=== PATIENT | female | born 1945 | race Caucasian/White ===

== ENCOUNTER 2020-01-19 14:23 | Outpatient (REF) | payer MEDICARE, SELFPAY ==
[2020-01-19 15:10] LABS: MANUAL DIFF FLAG NO
[2020-01-19 15:16] LABS: Basophils Absolute Auto 0.1 X10*3/uL (0.0-0.2); Basophils Percent Auto 0.8 % (0-2); Eosinophils Absolute Auto 0.2 X10*3/uL (0.0-0.4); Eosinophils Percent Auto 2.1 % (0-4); Hematocrit 42.8 % (37-47); Hemoglobin 13.4 g/dl (12.0-16.0); Imm Gran Abs Auto 0.03 X10*3/uL (0.00-0.03); Imm Gran Pct Auto 0.4 % (0.0-0.4); Lymphocytes Absolute Auto 1.3 X10*3/uL (1.2-4.9); Mean Corpuscular HGB Conc 31.3 g/dl (31.0-35.0); Mean Corpuscular Hemoglobin 29.6 pg (27.0-33.0); Mean Corpuscular Volume 94.7 fL (80-98); Mean Platelet Volume 11.3 fL (9.4-12.3); Monocytes Absolute Auto 0.6 X10*3/uL (0.1-1.2); Monocytes Percent Auto 8.4 % (2-11); Neutrophils Absolute Auto 5.1 X10*3/uL (2.0-8.3); Neutrophils Percent Auto 70.3 % (45-73); Platelet Count 236 X10*3/uL (160-400); Red Blood Count 4.52 X10*6/uL (4.20-5.50); Red Cell Distribution Width 13.3 % (11.0-16.0); White Blood Count 7.2 X10*3/uL (4.8-10.8)
[2020-01-19 15:56] LABS: Anion Gap 16 (12-20); Blood Urea Nitrogen 31 mg/dL (9-16); Calcium 9.2 mg/dL (8.4-10.2); Carbon Dioxide 27 mmol/L (22-29); Chloride 101 mmol/L (96-108); Estimated Glomerular Filt Rate 33; Potassium 4.5 mmol/l (3.3-5.1); Sodium 139 mmol/L (135-145)
== END 2020-01-19 14:24 | disposition home or self-care (01) ==
LOC: HO.LAB 14:23
PROVIDERS: PCP Internal Medicine; Visit Provider Internal Medicine Hypertension Specialist
DX: I12.9 Hypertensive chronic kidney disease with stage 1 through stage 4 chronic kidney disease, or unspecified chronic kidney disease (principal); E11.22 Type 2 diabetes mellitus with diabetic chronic kidney disease; E11.21 Type 2 diabetes mellitus with diabetic nephropathy; N18.30 Chronic kidney disease, stage 3 unspecified
CPT/HCPCS: 36415; 80051; 82310; 82565; 84520; 85025

== ENCOUNTER 2020-03-19 00:58 | Inpatient (IN) | payer MEDICARE, SELFPAY ==
[2020-03-19] VITALS (13 sets, daily range): BP systolic 103–148; BP diastolic 42–68; PULSE 58–90; RESP 18–34; TEMP 36.2–37.1; O2SAT 87–98; BMI 31.1
--- NOTE | 2020-03-19 01:20 | XR_ITS ---
EXAMINATION: XR CHEST CLINICAL INFORMATION: Shortness of breath COMPARISON: 01/14/2017 CT TECHNIQUE: Frontal view of the chest was obtained. FINDINGS: Lung volumes are symmetric. No focal consolidation is seen. There is mild diffuse interstitial prominence suspicious for interstitial edema. No evidence of pneumothorax or significant pleural effusion. Cardiac silhouette appears at the upper limits of normal in size. No acute osseous findings are seen. XR/XR chest 1V IMPRESSION: Mild diffuse interstitial prominence suspicious for interstitial edema.
--- NOTE | 2020-03-19 01:20 | ECG_ITS ---
Test Reason : DYSPNEA Blood Pressure : / mmHG Vent. Rate : 066 BPM Atrial Rate : 066 BPM P-R Int : 190 ms QRS Dur : 078 ms QT Int : 412 ms P-R-T Axes : 020 063 077 degrees QTc Int : 431 ms Sinus rhythm with Premature atrial complexes Nonspecific ST and T wave abnormality Abnormal EKG When compared with ECG of 08-MAY-2017 17:59, Premature atrial complexes are now Present Nonspecific T wave abnormality now evident in Lateral leads Referred By: Shreya Almazan Electronically Signed By:VÍCTOR PHAM
--- NOTE | 2020-03-19 01:23 | ED.SOB ---
HPI - SOB/Dyspnea General Chief Complaint: Dyspnea Stated Complaint: sob Time Seen by Provider: 03/19/20 01:03 History of Present Illness HPI Narrative: Patient is a 75-year-old female with a history of diastolic heart failure. Presents today with sudden onset of shortness of breath. No fever no chills. Minimal coughing. No leg swelling. Shortness of breath worse with lying down. There is no vomiting. No history of Coronavirus. No travel. No history of blood clots in the past. Positive history of hypertension, hyperlipidemia. Patient from home. Related Data Allergies Allergy/AdvReac Type Severity Reaction Status Date / Time From PERCOCET AdvReac Unknown NAUSEA Uncoded 03/19/20 01:11 Review of Systems Review of Systems: Constitutional: No Weight loss, No Fever, No Chills, No Night Sweats, No Fatigue, No Malaise ENT/Mouth: No Hearing loss, No Ear Pain, No Nasal Congestion, No Sinus Pain, No Hoarseness, No sore throat, No Rhinorrhea, No Swallowing Difficulty Eyes: No Eye Pain, No Swelling, No Redness, No Foreign Body, No Discharge, No Vision Changes Cardiovascular: No Chest Pain, Positive SOB, positive Dyspnea on Exertion, positive Orthopnea, No Edema, No Palpitations Respiratory: No Cough, No Sputum, No Wheezing, No Smoke Exposure, No Dyspnea Gastrointestinal: No Nausea, No Vomiting, No Diarrhea, No Constipation, No abdominal Pain, No Hematochezia, No Melena Genitourinary: no irregular bleeding, No Dysuria, No Urinary Frequency, No Hematuria, No Urinary Incontinence, No Urgency, No Flank Pain, No Urinary Flow Changes, No Hesitancy Musculoskeletal: No joint pain, No Myalgias, No Joint Swelling Skin: No Skin Lesions, No rash Neuro: No Weakness, No Numbness, No Paresthesias, No Loss of Consciousness, No Dizziness, No Headache Psych: No Anxiety/Panic, No Depression, No SI/HI/AH/VH, No Social Issues, Heme/Lymph: No Bruising, No Bleeding,No Lymphadenopathy Endocrine: No Polyuria, No Polydipsia, No Temperature Intolerance PMF Past Medical History Attestation statement: The following information was validated with the patient. Medical History Diabetes Hypertension Hypothyroid Parkinson disease Surgical History Hx of carpal tunnel repair Hx of hysterectomy Hx of knee surgery Social History Social History Advance Directives: No Advance Directives Information Provided: No Physical Exam Vital Signs: Vital Signs: Last Vital Signs Temp 98.2 F 03/19/20 01:03 Pulse 89 03/19/20 01:03 Resp 34 H 03/19/20 01:03 BP 148/63 H 03/19/20 01:03 Pulse Ox 87 L 03/19/20 01:03 Body Mass Index 31.1 Appearance: Alert. Oriented X3. No acute distress. Eyes: Pupils equal, round and reactive to light. ENT: Pharynx normal. Neck: Normal inspection. Neck supple. No lymph nodes noted. No crepitus CVS: Normal heart rate and rhythm. Pulses normal. Normal S1 and S2 Respiratory: No respiratory distress. Breath sounds normal. No Wheezing. No rales Abdomen: Soft and nontender. No rigidity. No distention. good BS x4 Skin: Skin warm and dry. Normal skin color. Normal skin turgor. Extremities: No lower extremity edema. Neurovascular intact to all extremities. No Lacerations. No Rash Neuro: Oriented X 3. No motor deficit. No sensory deficit. Moving all extermities. No slurred speech MDM - SOB/Dyspnea MDM Narrative Medical decision making narrative: Patient has a history of diastolic heart failure. Ejection fraction is preserved. Chest x-ray consistent with having congestive heart failure. BNP is elevated. Patient's D-dimer is negative no evidence for PE. Coronavirus test is negative. Symptoms fairly abrupt no upper respiratory symptoms also points to more congestive heart failure picture. Lasix and nitro ordered. Given patient's hypoxia will admit for further evaluation. Differential Diagnosis Differential diagnosis: Likely acute exacerbation of chronic obstructive airways disease, congestive heart failure, pneumonia and asthma with exacerbation Medical Records Attestation: I reviewed the patient's medical records. Lab Data Attestation: I reviewed the patient's lab results. Result diagrams: 03/19/20 01:43 03/19/20 01:42 Labs: Lab Results 03/19/20 03/19/20 03/19/20 Range/Units 01:33 01:42 01:42 WBC (4.8-10.8) X10*3/uL RBC (4.20-5.50) X10*6/uL Hgb (12.0-16.0) g/dl Hct (37-47) % MCV (80-98) fL MCH (27.0-33.0) pg MCHC (31.0-35.0) g/dl RDW (11.0-16.0) % Plt Count (160-400) X10*3/uL MPV (9.4-12.3) fL Immature Gran % (Auto) (0.0-0.4) % Neut % (Auto) (45-73) % Lymph % (Auto) (20-40) % [place] % (Auto) (2-11) % Eos % (Auto) (0-4) % Baso % (Auto) (0-2) % Lymph # (Auto) (1.2-4.9) X10*3/uL [place] # (Auto) (0.1-1.2) X10*3/uL Eos # (Auto) (0.0-0.4) X10*3/uL Baso # (Auto) (0.0-0.2) X10*3/uL Abs Immat Gran (auto) (0.00-0.03) X10*3/uL Absolute Neuts (auto) (2.0-8.3) X10*3/uL Absolute Nucleated RBC (0.0-0.012) X10*3/uL Nucleated RBC % (auto) (0.0-0.2) /100WBC D-Dimer 244 NG/ML Hold Blue Top SEE NOTE Sodium 142 (135-145) mmol/L Potassium 4.2 (3.3-5.1) mmol/l Chloride 104 (96-108) mmol/L Carbon Dioxide 26 (22-29) mmol/L Anion Gap 16 (12-20) BUN 36 H (9-16) mg/dL Creatinine 1.46 H (0.5-1.4) mg/dL Estim Creat Clear Calc 32.5 Estimated GFR 35 POC Glucose 167 H (60-115) mg/dL Random Glucose 179 H (60-115) mg/dL Calcium 9.4 (8.4-10.2) mg/dL Lactate Dehydrogenase (122-220) U/L Troponin I High Sens (<3.5-17.0) ng/L C-Reactive Protein 0.27 (< or = 0.50) mg/dL C-React Prot High Sens B-Natriuretic Peptide (<100) pg/mL Coronavirus (PCR) (Negative) Influenza Type A (PCR) (Negative) Influenza Type B (PCR) (Negative) RSV RNA Qual (PCR) (Negative) 03/19/20 03/19/20 03/19/20 Range/Units 01:42 01:42 01:43 WBC 10.2 (4.8-10.8) X10*3/uL RBC 4.73 (4.20-5.50) X10*6/uL Hgb 14.0 (12.0-16.0) g/dl Hct 44.7 (37-47) % MCV 94.5 (80-98) fL MCH 29.6 (27.0-33.0) pg MCHC 31.3 (31.0-35.0) g/dl RDW 13.2 (11.0-16.0) % Plt Count 234 (160-400) X10*3/uL MPV 10.9 (9.4-12.3) fL Immature Gran % (Auto) 0.4 (0.0-0.4) % Neut % (Auto) 76.5 H (45-73) % Lymph % (Auto) 13.8 L (20-40) % [place] % (Auto) 7.1 (2-11) % Eos % (Auto) 1.5 (0-4) % Baso % (Auto) 0.7 (0-2) % Lymph # (Auto) 1.4 (1.2-4.9) X10*3/uL [place] # (Auto) 0.7 (0.1-1.2) X10*3/uL Eos # (Auto) 0.2 (0.0-0.4) X10*3/uL Baso # (Auto) 0.1 (0.0-0.2) X10*3/uL Abs Immat Gran (auto) 0.04 H (0.00-0.03) X10*3/uL Absolute Neuts (auto) 7.8 (2.0-8.3) X10*3/uL Absolute Nucleated RBC 0.000 (0.0-0.012) X10*3/uL Nucleated RBC % (auto) 0.0 (0.0-0.2) /100WBC D-Dimer NG/ML Hold Blue Top Sodium (135-145) mmol/L Potassium (3.3-5.1) mmol/l Chloride (96-108) mmol/L Carbon Dioxide (22-29) mmol/L Anion Gap (12-20) BUN (9-16) mg/dL Creatinine (0.5-1.4) mg/dL Estim Creat Clear Calc Estimated GFR POC Glucose (60-115) mg/dL Random Glucose (60-115) mg/dL Calcium (8.4-10.2) mg/dL Lactate Dehydrogenase (122-220) U/L Troponin I High Sens 49.3 H (<3.5-17.0) ng/L C-Reactive Protein (< or = 0.50) mg/dL C-React Prot High Sens B-Natriuretic Peptide 488 H (<100) pg/mL Coronavirus (PCR) NEGATIVE (Negative) Influenza Type A (PCR) NEGATIVE (Negative) Influenza Type B (PCR) NEGATIVE (Negative) RSV RNA Qual (PCR) NEGATIVE (Negative) 03/19/20 03/19/20 Range/Units 01:43 01:43 WBC (4.8-10.8) X10*3/uL RBC (4.20-5.50) X10*6/uL Hgb (12.0-16.0) g/dl Hct (37-47) % MCV (80-98) fL MCH (27.0-33.0) pg MCHC (31.0-35.0) g/dl RDW (11.0-16.0) % Plt Count (160-400) X10*3/uL MPV (9.4-12.3) fL Immature Gran % (Auto) (0.0-0.4) % Neut % (Auto) (45-73) % Lymph % (Auto) (20-40) % [place] % (Auto) (2-11) % Eos % (Auto) (0-4) % Baso % (Auto) (0-2) % Lymph # (Auto) (1.2-4.9) X10*3/uL [place] # (Auto) (0.1-1.2) X10*3/uL Eos # (Auto) (0.0-0.4) X10*3/uL Baso # (Auto) (0.0-0.2) X10*3/uL Abs Immat Gran (auto) (0.00-0.03) X10*3/uL Absolute Neuts (auto) (2.0-8.3) X10*3/uL Absolute Nucleated RBC (0.0-0.012) X10*3/uL Nucleated RBC % (auto) (0.0-0.2) /100WBC D-Dimer NG/ML Hold Blue Top Sodium (135-145) mmol/L Potassium (3.3-5.1) mmol/l Chloride (96-108) mmol/L Carbon Dioxide (22-29) mmol/L Anion Gap (12-20) BUN (9-16) mg/dL Creatinine (0.5-1.4) mg/dL Estim Creat Clear Calc Estimated GFR POC Glucose (60-115) mg/dL Random Glucose (60-115) mg/dL Calcium (8.4-10.2) mg/dL Lactate Dehydrogenase 192 (122-220) U/L Troponin I High Sens (<3.5-17.0) ng/L C-Reactive Protein (< or = 0.50) mg/dL C-React Prot High Sens Cancelled B-Natriuretic Peptide (<100) pg/mL Coronavirus (PCR) (Negative) Influenza Type A (PCR) (Negative) Influenza Type B (PCR) (Negative) RSV RNA Qual (PCR) (Negative) ECG Data Attestation: I personally reviewed and interpreted this ECG as follows: Interpretation: Sinus heart rate is 70 CT QRS QT within normal limits there is diffuse T-wave flattening noted. Discharge Plan Discharge Clinical Impression: Congestive heart failure Patient Disposition: Admitted As Inpatient
[2020-03-19 01:51] LABS: Basophils Absolute Auto 0.1 X10*3/uL (0.0-0.2); Basophils Percent Auto 0.7 % (0-2); Eosinophils Absolute Auto 0.2 X10*3/uL (0.0-0.4); Eosinophils Percent Auto 1.5 % (0-4); Hematocrit 44.7 % (37-47); Imm Gran Abs Auto 0.04 X10*3/uL (0.00-0.03); Imm Gran Pct Auto 0.4 % (0.0-0.4); Lymphocytes Absolute Auto 1.4 X10*3/uL (1.2-4.9); Lymphocytes Percent Auto 13.8 % (20-40); MANUAL DIFF FLAG NO; Mean Corpuscular HGB Conc 31.3 g/dl (31.0-35.0); Mean Corpuscular Hemoglobin 29.6 pg (27.0-33.0); Mean Corpuscular Volume 94.5 fL (80-98); Mean Platelet Volume 10.9 fL (9.4-12.3); Monocytes Absolute Auto 0.7 X10*3/uL (0.1-1.2); Monocytes Percent Auto 7.1 % (2-11); Neutrophils Absolute Auto 7.8 X10*3/uL (2.0-8.3); Neutrophils Percent Auto 76.5 % (45-73); Platelet Count 234 X10*3/uL (160-400); Red Blood Count 4.73 X10*6/uL (4.20-5.50); Red Cell Distribution Width 13.2 % (11.0-16.0); White Blood Count 10.2 X10*3/uL (4.8-10.8)
[2020-03-19 01:59] LABS: D Dimer 244 NG/ML
[2020-03-19 02:13] LABS: Lactate Dehydrogenase 192 U/L (122-220)
[2020-03-19 02:13] LABS: Anion Gap 16 (12-20); Blood Urea Nitrogen 36 mg/dL (9-16); C Reactive Protein 0.27 mg/dL (< or = 0.50); Calcium 9.4 mg/dL (8.4-10.2); Carbon Dioxide 26 mmol/L (22-29); Chloride 104 mmol/L (96-108); Creatinine Clr Calc Pharmacy 32.5; Estimated Glomerular Filt Rate 35; Glucose Random 179 mg/dL (60-115); Potassium 4.2 mmol/l (3.3-5.1); Sodium 142 mmol/L (135-145)
[2020-03-19 02:18] LABS: Glucose, Whole Blood 167 mg/dL (60-115)
[2020-03-19 02:22] LABS: B Type Natriuretic Peptide 488 pg/mL (<100); Troponin-I High Sensitivity 49.3 ng/L (<3.5-17.0)
[2020-03-19 02:41] LABS: Influenza A PCR NEGATIVE (Negative); Influenza B PCR NEGATIVE (Negative); Resp Syncy Virus RNA Qual PCR NEGATIVE (Negative); SARS COV2 PCR INHOUSE NEGATIVE (Negative)
[2020-03-19] MEDS: Furosemide 40 MG/4 ML VIAL IVPUSH ×3 (02:59→20:34)
[2020-03-19] MEDS: Nitroglycerin 2 % Oint 1 GM Packet 0.5 INCH TRANSDERMA (03:01)
--- NOTE | 2020-03-19 04:04 | PC.NURSE ---
hospitalist at bedside,
--- NOTE | 2020-03-19 04:20 | PM.IMHP ---
History of Present Illness Date of Service: 03/19/20 Chief Complaint: SOB 75-year-old female with past medical history of diabetes, CHF, hypertension, hypothyroidism, Parkinson's disease who presents to the hospital with complaints of sudden-onset shortness of breath. Patient reports that she was in bed when she although sudden experience shortness of breath. She has orthopnea and PND. She has no lower extremity edema. She has no chest pain, no palpitations, reports that she is compliant with her furosemide which is 40 mg daily. She reports no increased salt intake. She has no fever or chills, a mild dry cough, no sick contact or recent travel. She has no abdominal pain nausea vomiting, no urinary symptoms. No diarrhea constipation. On a arrival to the EDhemodynamically stable satting 87% on room air. Labs are significant for BUN of 36 and a creatinine of 1.46 which is around her baseline, high sensitivity troponin of 49.3, BNP of 488. chest x-ray reveals mild diffuse interstitial predominance suspicious for interstitial edema. Past medical history: Hypertension, diabetes, CHF, hypothyroidism, Parkinson's disease, anxiety Surgical history: Hysterectomy, knee surgery, bilateral carpal tunnel Family history: Significant for diabetes Social history: Comes from home, walks around independently, denies any tobacco alcohol or illicit drugs Review of Systems Review of Systems: Yes all other systems are reviewed and are negative [facility] Medical History Diabetes Hypertension Hypothyroid Parkinson disease Surgical History Hx of carpal tunnel repair Hx of hysterectomy Hx of knee surgery Social History Alcohol intake: never Smoked in Last 30 Days: No Use of substances other than those prescribed or required for medical reasons: No Any prior treatment program specific to substance use: No Advance Directives: No Advance Directives Information Provided: No Meds Allergies Allergy/AdvReac Type Severity Reaction Status Date / Time From PERCOCET AdvReac Unknown NAUSEA Uncoded 03/19/20 01:11 Home Medications Medication Instructions Recorded Confirmed Type Tresiba FlexTouch U-100 40 units SUBCUT DAILY 03/19/20 03/19/20 History alprazolam 1 mg PO TID 03/19/20 03/19/20 History amlodipine benzoate 10 mg PO DAILY 03/19/20 03/19/20 History aspirin 81 mg PO DAILY 03/19/20 03/19/20 History carbidopa-levodopa 1 tab PO TID 03/19/20 03/19/20 History ferrous sulfate [Iron (ferrous 65 mg PO DAILY 03/19/20 03/19/20 History sulfate)] furosemide 40 mg PO DAILY 03/19/20 03/19/20 History levothyroxine 175 mcg PO DAILY 03/19/20 03/19/20 History losartan 100 mg PO DAILY 03/19/20 03/19/20 History metformin 1,000 mg PO BID 03/19/20 03/19/20 History metoprolol tartrate 25 mg PO BID 03/19/20 03/19/20 History paroxetine HCl 40 mg PO DAILY 03/19/20 03/19/20 History simvastatin 40 mg PO DAILY 03/19/20 03/19/20 History Physical Exam Vital Signs and Narrative: Vital Signs: Last Vital Signs Temp 98.7 F 03/19/20 04:12 Pulse 64 03/19/20 04:12 Resp 20 03/19/20 04:12 BP 106/42 L 03/19/20 04:12 Pulse Ox 87 L 03/19/20 01:03 Body Mass Index 31.1 Const: General: cooperative and no acute distress Orientation/consciousness: patient oriented x3 Eyes: General: appearance normal, both eyes and all related structures Pupils: Equal, round and reactive pupils present Resp: Effort & Inspection: normal respiratory effort and able to speak in complete sentences Auscultation: clear to auscultation bilaterally Cardio: Rate: regular rate Rhythm: regular rhythm GI: Palpation (GI): Soft to palpation Auscultation: normal bowel sounds Skin: General skin exam: no rashes or lesions noted Neuro: General: patient oriented x3 Cranial nerves: Yes Equal, round and reactive pupils present Cognition (Neuro): normal cognition Extrem: General: Yes normal to inspection and Yes no pedal edema Results Labs CBC and Chem 7: 03/19/20 01:43 03/19/20 01:42 Labs: Laboratory Results - last 24 hr 03/19/20 03/19/20 03/19/20 01:33 01:42 01:42 MCV MCH MCHC RDW Plt Count MPV Immature Gran % (Auto) Neut % (Auto) Lymph % (Auto) [place] % (Auto) Eos % (Auto) Baso % (Auto) Lymph # (Auto) [place] # (Auto) Eos # (Auto) Baso # (Auto) Abs Immat Gran (auto) Absolute Neuts (auto) Absolute Nucleated RBC Nucleated RBC % (auto) D-Dimer 244 Hold Blue Top SEE NOTE Anion Gap 16 Estim Creat Clear Calc 32.5 Estimated GFR 35 POC Glucose 167 H Random Glucose 179 H Calcium 9.4 Lactate Dehydrogenase Troponin I High Sens C-Reactive Protein 0.27 C-React Prot High Sens B-Natriuretic Peptide Coronavirus (PCR) Influenza Type A (PCR) Influenza Type B (PCR) RSV RNA Qual (PCR) 03/19/20 03/19/20 03/19/20 01:42 01:42 01:43 MCV 94.5 MCH 29.6 MCHC 31.3 RDW 13.2 Plt Count 234 MPV 10.9 Immature Gran % (Auto) 0.4 Neut % (Auto) 76.5 H Lymph % (Auto) 13.8 L [place] % (Auto) 7.1 Eos % (Auto) 1.5 Baso % (Auto) 0.7 Lymph # (Auto) 1.4 [place] # (Auto) 0.7 Eos # (Auto) 0.2 Baso # (Auto) 0.1 Abs Immat Gran (auto) 0.04 H Absolute Neuts (auto) 7.8 Absolute Nucleated RBC 0.000 Nucleated RBC % (auto) 0.0 D-Dimer Hold Blue Top Anion Gap Estim Creat Clear Calc Estimated GFR POC Glucose Random Glucose Calcium Lactate Dehydrogenase Troponin I High Sens 49.3 H C-Reactive Protein C-React Prot High Sens B-Natriuretic Peptide 488 H Coronavirus (PCR) NEGATIVE Influenza Type A (PCR) NEGATIVE Influenza Type B (PCR) NEGATIVE RSV RNA Qual (PCR) NEGATIVE 03/19/20 03/19/20 01:43 01:43 MCV MCH MCHC RDW Plt Count MPV Immature Gran % (Auto) Neut % (Auto) Lymph % (Auto) [place] % (Auto) Eos % (Auto) Baso % (Auto) Lymph # (Auto) [place] # (Auto) Eos # (Auto) Baso # (Auto) Abs Immat Gran (auto) Absolute Neuts (auto) Absolute Nucleated RBC Nucleated RBC % (auto) D-Dimer Hold Blue Top Anion Gap Estim Creat Clear Calc Estimated GFR POC Glucose Random Glucose Calcium Lactate Dehydrogenase 192 Troponin I High Sens C-Reactive Protein C-React Prot High Sens Cancelled B-Natriuretic Peptide Coronavirus (PCR) Influenza Type A (PCR) Influenza Type B (PCR) RSV RNA Qual (PCR) Imaging Radiologist's Impressions: Impressions Chest X-Ray 03/19/20 01:20 IMPRESSION: Mild diffuse interstitial prominence suspicious for interstitial edema. Assessment and Plan (1) Acute exacerbation of congestive heart failure: Status: Acute (2) Hypoxic: Status: Acute (3) Parkinson disease: Status: Acute (4) Hypertension: Status: Acute (5) Diabetes: Status: Acute (6) Hypothyroid: Status: Acute this is a 75-year-old female who presents to the hospital with complaints of shortness of breath # acute hypoxic respiratory failure - secondary to CHF exacerbation versus PE versus pneumonia less likely - Satting 87% on room air on arrival. Currently in the mid 90s on 6 L of nasal cannula - elevated BNP, chest x-ray is suggestive of interstitial edema, history of CHF on Lasix plan: - will start her on Lasix 40 IV b.i.d. - O2 as required, will titrate off as tolerated # acute CHF exacerbation - unclear etiology, does have slightly elevated troponin which is most likely type 2, has no chest pain, no palpitations, no hypertension, no acute infection - reports compliance with her Lasix, and no increased salt intake Plan: - Lasix 40 IV b.i.d. - low-sodium diet, strict I&O, daily weight - echocardiogram - cardiology consult # diabetes - continue long-acting, hold metformin - start low-dose sliding scale insulin - diabetic diet # hypertension - stable - continue amlodipine, losartan # Parkinson's - continue carbidopa levodopa DVT prophylaxis: Lovenox
--- NOTE | 2020-03-19 06:16 | PC.NURSE ---
per dr calvin keep nitro patch on patient. pt remains sleeping, nad noted. remains on 6 l nc
--- NOTE | 2020-03-19 06:33 | PC.NURSE ---
pt daughter called updated her on plan of care. pt am labs in progress. pt maintaining on 6 L nc.
--- NOTE | 2020-03-19 10:47 | MHC.CM.PN ---
CM met with patient at the bedside who reports she is independent and lives alone. CM helped patient to complete a HCP dtr Brittany [phone], copy placed on chart. Discussed discharge plan, home no services. Dtr will provide transport. CM will continue to follow patient for discharge needs.
[2020-03-19 11:22] LABS: Glucose, Whole Blood 242 mg/dL (60-115)
[2020-03-19] MEDS: PARoxetine HCL 40 MG TABLET PO (11:52)
[2020-03-19] MEDS: Aspirin Enteric Coated 81 MG TABLET.DR PO (11:52)
[2020-03-19] MEDS: Levothyroxine Sodium 175 MCG TABLET PO (11:53)
[2020-03-19] MEDS: amLODIPine Besylate 10 MG TABLET PO (11:53)
[2020-03-19] MEDS: ALPRAZolam 0.5 MG TABLET 1 MG PO ×3 (11:53→20:34)
[2020-03-19] MEDS: Carbidopa/Levodopa 25/100 TABLET 1 TAB PO ×3 (11:53→20:34)
[2020-03-19] MEDS: Losartan Potassium 50 MG TABLET 100 MG PO (11:55)
[2020-03-19] MEDS: Enoxaparin Sodium 40 MG/0.4 ML SYRINGE SUBCUT (11:56)
[2020-03-19] MEDS: 0.9 % Sodium Chloride Flush 3 ML SYRINGE IVFLUSH ×2 (12:00→15:01)
[2020-03-19] MEDS: Insulin Lispro 100 UNIT/ML 3 ML VIAL SUBCUT ×3 (12:03→21:39)
[2020-03-19] MEDS: Acetaminophen 325 MG TABLET 650 MG PO (13:09)
[2020-03-19 16:01] LABS: Glucose, Whole Blood 335 mg/dL (60-115)
[2020-03-19] MEDS: Atorvastatin Calcium 20 MG TABLET PO (20:34)
[2020-03-19] MEDS: Insulin Glargine,Hum.rec.anlog 100 UNIT/ML 10 ML VIAL 28 UNIT SUBCUT (21:39)
[2020-03-19 22:16] LABS: Glucose, Whole Blood 215 mg/dL (60-115)
[2020-03-20] VITALS (8 sets, daily range): BP systolic 124–130; BP diastolic 56–71; PULSE 61–69; RESP 18–20; TEMP 36.1–37; O2SAT 92–99; BMI 33.5
[2020-03-20] MEDS: 0.9 % Sodium Chloride Flush 3 ML SYRINGE IVFLUSH ×4 (00:35→20:44)
[2020-03-20 04:49] LABS: MANUAL DIFF FLAG NO
[2020-03-20 04:54] LABS: Basophils Absolute Auto 0.1 X10*3/uL (0.0-0.2); Basophils Percent Auto 0.7 % (0-2); Eosinophils Absolute Auto 0.1 X10*3/uL (0.0-0.4); Eosinophils Percent Auto 1.4 % (0-4); Hemoglobin 12.7 g/dl (12.0-16.0); Imm Gran Abs Auto 0.02 X10*3/uL (0.00-0.03); Imm Gran Pct Auto 0.3 % (0.0-0.4); Lymphocytes Percent Auto 13.5 % (20-40); Mean Corpuscular Hemoglobin 29.1 pg (27.0-33.0); Mean Platelet Volume 11.4 fL (9.4-12.3); Monocytes Absolute Auto 0.7 X10*3/uL (0.1-1.2); Monocytes Percent Auto 8.9 % (2-11); Neutrophils Absolute Auto 5.5 X10*3/uL (2.0-8.3); Neutrophils Percent Auto 75.2 % (45-73); Platelet Count 206 X10*3/uL (160-400); Red Blood Count 4.36 X10*6/uL (4.20-5.50); Red Cell Distribution Width 13.2 % (11.0-16.0); White Blood Count 7.3 X10*3/uL (4.8-10.8)
[2020-03-20 05:17] LABS: Anion Gap 16 (12-20); Blood Urea Nitrogen 28 mg/dL (9-16); Calcium 9.4 mg/dL (8.4-10.2); Carbon Dioxide 30 mmol/L (22-29); Chloride 99 mmol/L (96-108); Creatinine Clr Calc Pharmacy 37.9; Estimated Glomerular Filt Rate 42; Glucose Fasting 178 mg/dL (60-99); Magnesium 2.2 mg/dL (1.6-2.6); Sodium 141 mmol/L (135-145)
[2020-03-20 08:03] LABS: Glucose, Whole Blood 181 mg/dL (60-115)
[2020-03-20] MEDS: Furosemide 40 MG/4 ML VIAL IVPUSH ×2 (09:04→20:31)
[2020-03-20] MEDS: Insulin Lispro 100 UNIT/ML 3 ML VIAL SUBCUT ×3 (09:05→20:34)
[2020-03-20] MEDS: PARoxetine HCL 40 MG TABLET PO (09:06)
[2020-03-20] MEDS: Losartan Potassium 50 MG TABLET 100 MG PO (09:06)
[2020-03-20] MEDS: Levothyroxine Sodium 175 MCG TABLET PO (09:07)
[2020-03-20] MEDS: ALPRAZolam 0.5 MG TABLET 1 MG PO ×3 (09:07→20:31)
[2020-03-20] MEDS: Carbidopa/Levodopa 25/100 TABLET 1 TAB PO ×3 (09:07→20:32)
[2020-03-20] MEDS: Aspirin Enteric Coated 81 MG TABLET.DR PO (09:08)
[2020-03-20] MEDS: Metoprolol Tartrate 25 MG TABLET PO ×2 (09:08→20:32)
[2020-03-20] MEDS: amLODIPine Besylate 10 MG TABLET PO (09:08)
--- NOTE | 2020-03-20 09:50 | PM.CNCAR ---
History of Present Illness History of Present Illness Date of Service: 03/20/20 Consult reason: congestive heart failure Chief complaint: chf exacerbation Narrative: This is a cardiology consultation regarding shortness of breath. This patient sees Dr. Saleh and the last appointment was in October of this year. She has a history of diabetes, diastolic heart failure, hypertension, Parkinson's disease. She states that she was watching television and developed sudden onset of shortness of breath. She also had some orthopnea / PND. No significant lower extremity edema. No anginal-type chest pains. Otherwise no recent excessive salt intake from ving time or otherwise. She is compliant with her diuretics. She states that she is feeling better after she got admitted. Review of Systems Review of Systems: Yes all other systems are reviewed and are negative Cardiovascular: Cardiovascular: Reports no additional cardiovascular complaints, Denies cool extremities, Denies chest pain, Denies chest pain at rest, Denies chest pain with activity, Denies Epigastric Pain, Denies diaphoresis, Denies syncope, Denies leg edema, Denies lightheadedness, Denies Loss of Consciousness, Reports dyspnea, Reports dyspnea on exertion, Reports orthopnea and Denies slow heart rate Respiratory: Respiratory: Reports dyspnea and Reports dyspnea on exertion Neurologic: Denies syncope PMFSH Past Medical History Medical History Diabetes Hypertension Hypothyroid Parkinson disease Surgical History Surgical History Hx of carpal tunnel repair Hx of hysterectomy Hx of knee surgery Social History Social History Household Members: None Housing: Apartment Do you presently have visiting nurse or other home services: No Alcohol intake: never Smoking Status: Never smoker Smoked in Last 30 Days: No Use of substances other than those prescribed or required for medical reasons: No Currently Displaying Signs/Symptoms of Drug Intoxication Withdrawal: No Any prior treatment program specific to substance use: No Have you been hit, kicked, punched, or otherwise hurt by someone within the past year? If so, by whom?: No Do you feel safe in your current relationship?: No Current Relationship Is there a partner from a previous relationship who is making you feel unsafe now?: No Are you made to feel afraid or neglected: No Advance Directives: No Advance Directives Information Provided: No Do you have thoughts of harming others: None Do you have a plan to hurt others: No Plan Recently lost weight without trying: No service: No Current occupational status: retired Meds Allergies Allergy/AdvReac Type Severity Reaction Status Date / Time From PERCOCET AdvReac Unknown NAUSEA Uncoded 03/19/20 01:11 Home Medications Medication Instructions Recorded Confirmed Type Tresiba FlexTouch U-100 40 units SUBCUT DAILY 03/19/20 03/19/20 History alprazolam 1 mg PO TID 03/19/20 03/19/20 History amlodipine benzoate 10 mg PO DAILY 03/19/20 03/19/20 History aspirin 81 mg PO DAILY 03/19/20 03/19/20 History carbidopa-levodopa 1 tab PO TID 03/19/20 03/19/20 History ferrous sulfate [Iron (ferrous 65 mg PO DAILY 03/19/20 03/19/20 History sulfate)] furosemide 40 mg PO DAILY 03/19/20 03/19/20 History levothyroxine 175 mcg PO DAILY 03/19/20 03/19/20 History losartan 100 mg PO DAILY 03/19/20 03/19/20 History metformin 1,000 mg PO BID 03/19/20 03/19/20 History metoprolol tartrate 25 mg PO BID 03/19/20 03/19/20 History paroxetine HCl 40 mg PO DAILY 03/19/20 03/19/20 History simvastatin 40 mg PO DAILY 03/19/20 03/19/20 History Physical Exam Vital Signs: Vital Signs: Last Vital Signs Temp 98.6 F 03/20/20 07:42 Pulse 69 03/20/20 09:08 Resp 18 03/20/20 07:42 BP 127/64 03/20/20 09:08 Pulse Ox 92 03/20/20 07:42 Body Mass Index 33.5 Const: General: cooperative, comfortable and no acute distress Orientation/consciousness: patient oriented x3 HENMT: Other: Unremarkable Neck: Neck: Yes normal visual inspection Chest: Chest palpation & inspection: normal inspection of the chest Resp: Auscultation: clear to auscultation bilaterally, no crackles and no wheezes Cardio: Jugular venous distension: no JVD Palpation: normal PMI Heart sounds: S1 normal heart sound present, S2 normal heart sound present, no gallops, Murmur heart sound present systolic early, II/ and at the right sternal border and no rubs GI: Palpation (GI): Soft to palpation Back/Spine/Pelvis: Other: unremarkable Skin: General skin exam: no rashes or lesions noted Neuro: General: patient oriented x3 Extrem: General: Yes edema ( Trace to 1+) Psych: Mental Status: mental status grossly normal Results Labs and Meds Result diagrams: 03/20/20 04:21 03/20/20 04:21 EKG Interpretation EKG Comments: EKG with sinus rhythm at 66/Min with nonspecific ST-T changes; premature atrial contraction. Assessment and Plan (1) Acute on chronic diastolic (congestive) heart failure: Status: Acute (2) Atherosclerotic cardiovascular disease: Status: Acute Cardiac catheterization data reviewed from 2016. Moderate three-vessel coronary disease. No obstructive lesions. Presentation is most likely from acute on chronic diastolic heart failure. Continue IV diuretics 1 more day. We will get an echocardiogram for cardiac function assessment. Blood pressure appears well controlled.
--- NOTE | 2020-03-20 11:37 | HO.PM.IMPN ---
Subjective Subjective Date of Service: 03/20/20 Interval History: shortness of breath improved Cardiovascular Cardiovascular: Reports no additional cardiovascular complaints Gastrointestinal Gastrointestinal: Reports no additional gastrointestinal complaints Physical Exam Vital Signs: Vital Signs: Last Vital Signs Temp 98.6 F 03/20/20 07:42 Pulse 69 03/20/20 09:08 Resp 18 03/20/20 07:42 BP 127/64 03/20/20 09:08 Pulse Ox 92 03/20/20 07:42 Body Mass Index 33.5 General: AO X 3, no acute distress Resp: CTA bilateral CVS: S1,S2,RRR GI: soft, non tender, non distended Neuro: motor grossly intact Psych: appropriate affect Objective Data Current Medications Generic Name Dose Route Start Last Admin Trade Name Freq PRN Reason Stop Dose Admin Acetaminophen 650 mg 03/19/20 10:21 03/19/20 13:09 Acetaminophen 325 Mg Tablet PO 650 mg Q6H PRN Administration Pain, Mild (Pain Scale 1-3) Alprazolam 1 mg 03/19/20 10:21 03/20/20 09:07 Alprazolam 0.5 Mg Tablet PO 1 mg TID ANIL Administration Amlodipine Besylate 10 mg 03/19/20 10:45 03/20/20 09:08 Amlodipine Besylate 10 Mg Tablet PO 10 mg DAILY ANIL Administration Aspirin 81 mg 03/19/20 10:45 03/20/20 09:08 Aspirin Enteric Coated 81 Mg Tablet.Dr PO 81 mg DAILY ANIL Administration Atorvastatin Calcium 20 mg 03/19/20 21:00 03/19/20 20:34 Atorvastatin Calcium 20 Mg Tablet PO 20 mg BEDTIME ANIL Administration Carbidopa/Levodopa 1 tab 03/19/20 10:21 03/20/20 09:07 Carbidopa/Levodopa 25/100 Tablet PO 1 tab TID ANIL Administration Docusate Sodium 100 mg 03/19/20 10:21 Docusate Sodium 100 Mg Capsule PO DAILY PRN Constipation Enoxaparin Sodium 40 mg 03/19/20 11:00 03/19/20 11:56 Enoxaparin Sodium 40 Mg/0.4 Ml Syringe SUBCUT 40 mg Q24H ANIL Administration Furosemide 40 mg 03/19/20 10:21 03/20/20 09:04 Furosemide 40 Mg/4 Ml Vial IVPUSH 40 mg BID ANIL Administration Protocol Insulin Glargine 28 unit 03/19/20 21:00 03/19/20 21:39 Insulin Glargine,Hum.Rec.Anlog 100 Unit/Ml 10 Ml Vial SUBCUT 28 unit BEDTIME ANIL Administration Insulin Human Lispro 0 unit 03/19/20 10:21 03/20/20 09:05 Insulin Lispro 100 Unit/Ml 3 Ml Vial SUBCUT 2 unit QIDACHS ANIL Administration Protocol Levothyroxine Sodium 175 mcg 03/19/20 10:21 03/20/20 09:07 Levothyroxine Sodium 175 Mcg Tablet PO 175 mcg DAILY ANIL Administration Losartan Potassium 100 mg 03/19/20 10:21 03/20/20 09:06 Losartan Potassium 50 Mg Tablet PO 100 mg DAILY ANIL Administration Protocol Metoprolol Tartrate 25 mg 03/19/20 10:21 03/20/20 09:08 Metoprolol Tartrate 25 Mg Tablet PO 25 mg BID ANIL Administration Protocol Ondansetron HCl 4 mg 03/19/20 10:21 Ondansetron Hcl 4 Mg/2 Ml Vial IVPUSH Q8H PRN Nausea and Vomiting Paroxetine HCl 40 mg 03/19/20 10:21 03/20/20 09:06 Paroxetine Hcl 40 Mg Tablet PO 40 mg DAILY ANIL Administration Sodium Chloride 3 ml 03/19/20 10:21 03/20/20 09:08 0.9 % Sodium Chloride Flush 3 Ml Syringe IVFLUSH 3 ml QSHIFT ANIL Administration Labs CBC & Chem 7: 03/20/20 04:21 03/20/20 04:21 Assessment and Plan (1) Acute exacerbation of congestive heart failure: Status: Acute (2) Hypoxic: Status: Acute (3) Parkinson disease: Status: Acute (4) Hypertension: Status: Acute (5) Diabetes: Status: Acute (6) Hypothyroid: Status: Acute Assessment and Plan: 75-year-old female presented with shortness of breath acute hypoxic respiratory failure due to acute on chronic diastolic CHF continue IV Lasix follow-up echo wean O2 as tolerated nonobstructive coronary disease continue aspirin statin diabetes continue insulin hypertension amlodipine, losartan Parkinson's Sinemet
[2020-03-20 14:16] LABS: Glucose, Whole Blood 354 mg/dL (60-115)
[2020-03-20 14:29] LABS: Glucose, Whole Blood 344 mg/dL (60-115)
[2020-03-20] MEDS: Enoxaparin Sodium 40 MG/0.4 ML SYRINGE SUBCUT (14:47)
--- NOTE | 2020-03-20 15:14 | MHC.CM.PN ---
CM spoke with dtr Brittany who had many questions re: CHF and treatment. CM answered all of dtr's questions and instructed to return call if she has anymore questions. Instructed patient might be discharged home tomorrow.
[2020-03-20 17:07] LABS: Glucose, Whole Blood 145 mg/dL (60-115)
[2020-03-20 18:02] LABS: Glucose Urine UA 100 MG/DL (NEG); Leukocyte Esterase Urine NEG (NEG); Nitrite Urine NEG (NEG); Specific Gravity - Urine 1.015 (1.005-1.025); Urine Blood NEG (NEG); Urine Ketones NEG (NEG); Urine Protein NEG (NEG-TRACE)
[2020-03-20 18:06] LABS: Appearance Urine CLEAR; Color Urine YELLOW
[2020-03-20 20:28] LABS: Glucose, Whole Blood 281 mg/dL (60-115)
[2020-03-20] MEDS: Atorvastatin Calcium 20 MG TABLET PO (20:31)
[2020-03-20] MEDS: Insulin Glargine,Hum.rec.anlog 100 UNIT/ML 10 ML VIAL 28 UNIT SUBCUT (20:35)
[2020-03-21] VITALS: BP 119/62; PULSE 52; RESP 18; TEMP 36.9; O2SAT 92
[2020-03-21 03:27] VITALS: BP 121/62; PULSE 54; RESP 18; TEMP 36.6; O2SAT 93
[2020-03-21 06:00] VITALS: BMI 32.1
[2020-03-21 07:12] LABS: MANUAL DIFF FLAG NO
[2020-03-21 07:31] LABS: Basophils Percent Auto 0.7 % (0-2); Eosinophils Absolute Auto 0.2 X10*3/uL (0.0-0.4); Eosinophils Percent Auto 3.4 % (0-4); Hematocrit 42.7 % (37-47); Hemoglobin 13.5 g/dl (12.0-16.0); Imm Gran Abs Auto 0.02 X10*3/uL (0.00-0.03); Imm Gran Pct Auto 0.4 % (0.0-0.4); Lymphocytes Absolute Auto 1.2 X10*3/uL (1.2-4.9); Lymphocytes Percent Auto 22.7 % (20-40); Mean Corpuscular HGB Conc 31.6 g/dl (31.0-35.0); Mean Corpuscular Hemoglobin 29.5 pg (27.0-33.0); Mean Corpuscular Volume 93.4 fL (80-98); Mean Platelet Volume 12.1 fL (9.4-12.3); Monocytes Absolute Auto 0.6 X10*3/uL (0.1-1.2); Monocytes Percent Auto 11.8 % (2-11); Neutrophils Absolute Auto 3.3 X10*3/uL (2.0-8.3); Platelet Count 230 X10*3/uL (160-400); Red Blood Count 4.57 X10*6/uL (4.20-5.50); Red Cell Distribution Width 13.1 % (11.0-16.0); White Blood Count 5.3 X10*3/uL (4.8-10.8)
[2020-03-21 07:38] LABS: Glucose, Whole Blood 168 mg/dL (60-115)
[2020-03-21 07:40] VITALS: BP 119/62; PULSE 55; RESP 20; TEMP 36.7; O2SAT 97
[2020-03-21 07:53] LABS: Anion Gap 16 (12-20); Blood Urea Nitrogen 26 mg/dL (9-16); Calcium 9.2 mg/dL (8.4-10.2); Carbon Dioxide 34 mmol/L (22-29); Chloride 97 mmol/L (96-108); Creatinine Clr Calc Pharmacy 38.8; Estimated Glomerular Filt Rate 42; Glucose Fasting 123 mg/dL (60-99); Magnesium 2.1 mg/dL (1.6-2.6); Potassium 3.8 mmol/l (3.3-5.1); Sodium 143 mmol/L (135-145)
[2020-03-21 09:23] VITALS: BP 119/62; PULSE 55
[2020-03-21] MEDS: Losartan Potassium 50 MG TABLET 100 MG PO (09:23)
[2020-03-21] MEDS: amLODIPine Besylate 10 MG TABLET PO (09:23)
[2020-03-21] MEDS: PARoxetine HCL 40 MG TABLET PO (09:23)
[2020-03-21] MEDS: ALPRAZolam 0.5 MG TABLET 1 MG PO (09:23)
[2020-03-21] MEDS: Metoprolol Tartrate 25 MG TABLET PO (09:23)
[2020-03-21] MEDS: Aspirin Enteric Coated 81 MG TABLET.DR PO (09:23)
[2020-03-21] MEDS: Insulin Lispro 100 UNIT/ML 3 ML VIAL SUBCUT ×2 (09:24→12:16)
[2020-03-21] MEDS: Levothyroxine Sodium 175 MCG TABLET PO (09:24)
[2020-03-21] MEDS: Furosemide 40 MG/4 ML VIAL IVPUSH (09:24)
[2020-03-21] MEDS: Carbidopa/Levodopa 25/100 TABLET 1 TAB PO (09:24)
[2020-03-21] MEDS: 0.9 % Sodium Chloride Flush 3 ML SYRINGE IVFLUSH (09:25)
--- NOTE | 2020-03-21 10:05 | PM.PNCARD ---
Subjective Subjective Date of Service: 03/21/20 Interval history: She states that she is feeling better. Shortness of breath is improved. Leg swelling is also better. Review of Systems Review of Systems Yes all other systems are reviewed and are negative Cardiovascular: Reports as per HPI, Reports no additional cardiovascular complaints, Denies cool extremities, Denies chest pain, Denies chest pain at rest, Denies chest pain with activity, Denies diaphoresis, Denies syncope, Denies irregular heart rhythm, Denies leg edema, Denies lightheadedness, Denies Loss of Consciousness, Denies dyspnea and Denies dyspnea on exertion Respiratory: Denies dyspnea and Denies dyspnea on exertion Denies syncope Physical Exam Vital Signs: Last Vital Signs Temp 98.1 F 03/21/20 07:40 Pulse 55 03/21/20 09:23 Resp 20 03/21/20 07:40 BP 119/62 03/21/20 09:23 Pulse Ox 97 03/21/20 07:40 Body Mass Index 32.1 Const General: cooperative, comfortable and no acute distress Orientation/consciousness: patient oriented x3 HENOH Other: Unremarkable Neck Neck: Yes normal visual inspection Chest Chest palpation & inspection: normal inspection of the chest Resp Auscultation: clear to auscultation bilaterally, no crackles and no wheezes Cardio Jugular venous distension: no JVD Palpation: normal PMI Heart sounds: S1 normal heart sound present, S2 normal heart sound present, no gallops, Murmur heart sound present systolic early, II/ and at the right sternal border and no rubs GI Palpation (GI): Soft to palpation Back/Spine/Pelvis Other: unremarkable Skin General skin exam: no rashes or lesions noted Neuro General: patient oriented x3 Extrem General: Yes edema ( Trace to 1+) Psych Mental Status: mental status grossly normal Results Labs and Meds Result diagrams: 03/21/20 05:28 03/21/20 05:28 Progress Note: A&P Assessment and plan (1) Acute on chronic diastolic (congestive) heart failure: Status: Acute (2) Atherosclerotic cardiovascular disease: Status: Acute Assessment and Plan: Cardiac catheterization data reviewed from 2016. Moderate three-vessel coronary disease. No obstructive lesions. Presentation is most likely from acute on chronic diastolic heart failure. She clinically seems improved. Appears euvolemic. Can stop IV diuretics and switch her to oral Lasix. Can discharge on slightly higher dose than her home dosing. So far, she is -1.3 L negative. Discharge planning. Will arrange outpatient follow-up. Fall Risk Details Current Medications: Current Medications Generic Name Dose Route Start Last Admin Trade Name Kyara PRN Reason Stop Dose Admin Acetaminophen 650 mg 03/19/20 10:21 03/19/20 13:09 Acetaminophen 325 Mg Tablet PO 650 mg Q6H PRN Administration Pain, Mild (Pain Scale 1-3) Alprazolam 1 mg 03/19/20 10:21 03/21/20 09:23 Alprazolam 0.5 Mg Tablet PO 1 mg TID ANIL Administration Amlodipine Besylate 10 mg 03/19/20 10:45 03/21/20 09:23 Amlodipine Besylate 10 Mg Tablet PO 10 mg DAILY ANIL Administration Aspirin 81 mg 03/19/20 10:45 03/21/20 09:23 Aspirin Enteric Coated 81 Mg Tablet.Dr PO 81 mg DAILY ANIL Administration Atorvastatin Calcium 20 mg 03/19/20 21:00 03/20/20 20:31 Atorvastatin Calcium 20 Mg Tablet PO 20 mg BEDTIME ANIL Administration Carbidopa/Levodopa 1 tab 03/19/20 10:21 03/21/20 09:24 Carbidopa/Levodopa 25/100 Tablet PO 1 tab TID ANIL Administration Docusate Sodium 100 mg 03/19/20 10:21 Docusate Sodium 100 Mg Capsule PO DAILY PRN Constipation Enoxaparin Sodium 40 mg 03/19/20 11:00 03/20/20 14:47 Enoxaparin Sodium 40 Mg/0.4 Ml Syringe SUBCUT 40 mg Q24H ANIL Administration Furosemide 40 mg 03/19/20 10:21 03/21/20 09:24 Furosemide 40 Mg/4 Ml Vial IVPUSH 40 mg BID ANIL Administration Protocol Insulin Glargine 28 unit 03/19/20 21:00 03/20/20 20:35 Insulin Glargine,Hum.Rec.Anlog 100 Unit/Ml 10 Ml Vial SUBCUT 28 unit BEDTIME ANIL Administration Insulin Human Lispro 0 unit 03/19/20 10:21 03/21/20 09:24 Insulin Lispro 100 Unit/Ml 3 Ml Vial SUBCUT 2 unit QIDACHS ANIL Administration Protocol Levothyroxine Sodium 175 mcg 03/19/20 10:21 03/21/20 09:24 Levothyroxine Sodium 175 Mcg Tablet PO 175 mcg DAILY ANIL Administration Losartan Potassium 100 mg 03/19/20 10:21 03/21/20 09:23 Losartan Potassium 50 Mg Tablet PO 100 mg DAILY ANIL Administration Protocol Metoprolol Tartrate 25 mg 03/19/20 10:21 03/21/20 09:23 Metoprolol Tartrate 25 Mg Tablet PO 25 mg BID ANIL Administration Protocol Ondansetron HCl 4 mg 03/19/20 10:21 Ondansetron Hcl 4 Mg/2 Ml Vial IVPUSH Q8H PRN Nausea and Vomiting Paroxetine HCl 40 mg 03/19/20 10:21 03/21/20 09:23 Paroxetine Hcl 40 Mg Tablet PO 40 mg DAILY ANIL Administration Sodium Chloride 3 ml 03/19/20 10:21 03/21/20 09:25 0.9 % Sodium Chloride Flush 3 Ml Syringe IVFLUSH 3 ml QSHIFT ANIL Administration Time Spent With Patient Time: Total time spent is greater than 50% in coordination of care (as documented) at patient's floor/unit and/or counseling patient: Time with patient: less than 15 minutes
--- NOTE | 2020-03-21 10:21 | CA_ITS ---
Transthoracic Echocardiogram Patient (Last, First, Middle): Bianca Hunt A Gender: Female Date of : 1945 Age: 75 Procedure Date: 03/21/2020 Procedure Type: Transthoracic [place]ocardiogram [place] [facility] [place]: 205.74 cm Weight: 83.01 kg BSA: 2.23 m2 Heart Rate: bpm BP: 124 / 56 mmHg Clinical Nursing Director: Referring MD: Earle Newsome MD Production Line Mechanic: Erik Hays MD Symptoms: Congestive heart failure Study Quality: Fair ECG Rhythm: Sinus Conclusions: - The left ventricular systolic function is normal. The visually estimated ejection fraction is between 60-65%. - There is mild calcification of the aortic valve. - Mild pulmonary hypertension is present. Findings Left Ventricle Normal left ventricular cavity size. The left ventricular systolic function is normal. The visually estimated ejection fraction is between 60-65%. There is no evidence of regional wall motion abnormalities. E/E prime ratio is >15, consistent with elevated filling pressures. Evidence suggests grade II (moderate) diastolic dysfunction. There is mild septal asymmetric hypertrophy. Right Ventricle Normal right ventricular cavity size and systolic function. Atria The left atrium is normal in size. The right atrium is normal in size. Aortic Valve There is a normal trileaflet aortic valve. There is mild calcification of the aortic valve. There is no aortic valve stenosis. There is no aortic valve regurgitation. Mitral Valve The mitral valve appears normal. There is trace mitral valve regurgitation. There is no mitral valve stenosis. Pulmonic Valve The pulmonic valve was not well visualized. Tricuspid Valve Normal tricuspid valve structure. There is trace tricuspid valve regurgitation. Mild pulmonary hypertension is present. Great Vessels The aortic annulus, sinuses of valsalva, and asc aorta are normal in size. Venous The inferior vena cava is normal in size and collapses greater than 50% with inspiration. Pericardium/Pleural There is a trivial pericardial effusion. Prior Study Comparison No significant change compared to prior study dated: 05/06/2019. Measurements 2D Linear Measurements IVSd: 1.10 0.6-0.9/0.6-1.0 cm LVIDd: 4.48 3.9-5.3/4.2-5.9 cm LVIDd Index: 2.01 2.4-3.2/2.2-3.1 cm/m2 LVIDs: 2.98 2.0-3.6 cm LVPWd: 0.98 0.7-1.1 cm Ao Root: 2.60 2.1-3.5 cm LA Diam: 4.00 2.7-3.8/3.0-4.0 cm LAIDs Index: 1.79 1.5-2.3 cm/m2 LV Mass: 200.62 67-162/88-224 g LV Mass Index: 89.96 43-95/49-115 g/m2 LVOT Diam: 2.10 3.0+(-)1.3 cm Mitral Valve MV Pk E: 0.92 MV PK A: 0.40 MV Decel Time: 176.00 E/A: 2.30 E'Lateral: 6.58 E'Medial: 5.71 E/E' Med: 16.10 E/E' Lat: 14.00 PHT: 52.00 MVA PHT: 4.23 Decel [place]: 5.23 Aortic Valve AoV Pk Robert: 1.57 AoV Mn Robert: 1.06 AoV VTI: 0.38 AoV Pk Grad: 10.00 Aov Mn Grad: 5.00 RHONDA Cont.VTI: 1.84 LVOT LVOT Pk Robert: 0.83 LVOT Mn Robert: 0.54 LVOT VTI: 0.20 LVOT Pk Grad: 3.00 LVOT Mn Grad: 1.00 LVOT Diam: 2.10 LVOT Area: 3.46 Diastolic Function MV Pk E: 0.92 MV Pk A: 0.40 E/A: 2.30 E'Medial: 5.71 E/E' Med: 16.10 E' Laterial: 6.58 E/E' Lat: 14.00 Tricuspid Valve TR Pk Robert: 3.22 TR Pk Grad: 41.00 RA Press: 3.00 RVSP: 45.00 Great Vessels Aorta Ao Root-2D: 2.60 2.0-3.7 cm Ao Asc: 3.10 2.1-3.4 cm Pulmonary Valve PV Pk Robert: 0.92 Peak PV Grad: 3.00 Updated in Other Vendor System with Status of Final Erik Hays MD electronically signed on 03/21/2020 8:37:31 AM with status of Final
--- NOTE | 2020-03-21 11:08 | P.DS_ITS ---
DS: Providers Provider Date of admission: 03/19/20 04:17 Primary care physician: Reji Molnia MD Consults: 03/19/20 10:21 Consult to Cardiology Routine Consulting Provider: Shaun Saleh Reason for consultation: hcf Has provider been notified: No DS: Diagnosis Discharge Diagnosis (1) Acute on chronic diastolic (congestive) heart failure: Status: Acute (2) Atherosclerotic cardiovascular disease: Status: Acute (3) Acute and chronic respiratory failure with hypoxia: Status: Acute (4) Pulmonary hypertension: Status: Acute DS: Medications Discharge Medications Home Medications: Home Medications Medication Instructions Recorded Confirmed Tresiba FlexTouch U-100 40 units SUBCUT DAILY 03/19/20 03/19/20 alprazolam 1 mg PO TID 03/19/20 03/19/20 amlodipine benzoate 10 mg PO DAILY 03/19/20 03/19/20 aspirin 81 mg PO DAILY 03/19/20 03/19/20 carbidopa-levodopa 1 tab PO TID 03/19/20 03/19/20 ferrous sulfate [Iron (ferrous 65 mg PO DAILY 03/19/20 03/19/20 sulfate)] levothyroxine 175 mcg PO DAILY 03/19/20 03/19/20 losartan 100 mg PO DAILY 03/19/20 03/19/20 metformin 1,000 mg PO BID 03/19/20 03/19/20 metoprolol tartrate 25 mg PO BID 03/19/20 03/19/20 paroxetine HCl 40 mg PO DAILY 03/19/20 03/19/20 simvastatin 40 mg PO DAILY 03/19/20 03/19/20 Previous Rx's Medication Instructions Recorded furosemide 60 mg PO DAILY #60 tab 03/21/20 DS: Summary Hospital Course Hospital Course: patient was admitted for acute hypoxic respiratory failure secondary to acute on chronic diastolic CHF. She was given IV Lasix and diuresed well. Her symptoms resolved. However, at time of discharge patient was still noted to be hypoxic even though she was asymptomatic. Consistent with chronic hypoxic respiratory failure. Echocardiogram did show diastolic dysfunction and mild pulmonary hypertension as likely etiology for her chronic hypoxia. Patient will be discharged home on home O2 and with oral Lasix increased from 40 mg daily to 60 mg daily. Time Spent with Patient Time attestation: Total time spent providing and/or coordinating discharge services: Physical Exam Vital Signs: Vital Signs: Last Vital Signs Temp 98.1 F 03/21/20 07:40 Pulse 55 03/21/20 09:23 Resp 20 03/21/20 07:40 BP 119/62 03/21/20 09:23 Pulse Ox 97 03/21/20 07:40 Body Mass Index 32.1 General: AO X 3, no acute distress Resp: CTA bilateral CVS: S1,S2,RRR GI: soft, non tender, non distended Neuro: motor grossly intact Psych: appropriate affect DS: Data Data Completed and Pending Labs on day of discharge: 03/19/20 01:20 ECG 12 lead EKG Stat EKG Documentation DIRECTED XR chest 1V Stat 03/19/20 01:33 Glucose, Whole Blood Routine 03/19/20 01:42 B Type Natriuretic Peptide Stat Basic Metabolic Panel Stat C Reactive Protein Stat D Dimer Stat Hold Lt Blue - Possible Coag Stat SARS-CoV2/FLU/RSV Stat Troponin-I High Sensitivity Stat 03/19/20 01:43 Complete Blood Count Auto Diff Stat Lactate Dehydrogenase Stat 03/19/20 02:52 Furosemide [Lasix] 40 mg IVPUSH ONCE ONE Nitroglycerin 2 % Oint [Nitro-Bid] 0.5 inch TRANSDERMA ONCE ONE 03/19/20 04:10 Transfer Order Routine 03/19/20 10:51 Troponin-I High Sensitivity Stat 03/19/20 11:05 Glucose, Whole Blood Routine 03/19/20 15:52 Glucose, Whole Blood Routine 03/19/20 21:26 Glucose, Whole Blood Routine 03/20/20 UA CC w/rflx Micro + Cult Stat 03/20/20 04:21 BMP [Basic Metabolic Panel Fasting] Routine Complete Blood Count Auto Diff Routine Magnesium Routine 03/20/20 07:41 Glucose, Whole Blood Routine 03/20/20 11:34 Glucose, Whole Blood Routine 03/20/20 14:25 Glucose, Whole Blood Routine 03/20/20 17:04 Glucose, Whole Blood Routine 03/20/20 20:24 Glucose, Whole Blood Routine 03/21/20 05:28 BMP [Basic Metabolic Panel Fasting] Routine Complete Blood Count Auto Diff Routine Magnesium Routine 03/21/20 07:31 Glucose, Whole Blood Routine 03/21/20 10:21 CA echo transthoracic complete Routine Laboratory Last Values WBC 5.3 X10*3/uL (4.8-10.8) 03/21/20 05:28 RBC 4.57 X10*6/uL (4.20-5.50) 03/21/20 05:28 Hgb 13.5 g/dl (12.0-16.0) 03/21/20 05:28 Hct 42.7 % (37-47) 03/21/20 05:28 MCV 93.4 fL (80-98) 03/21/20 05:28 MCH 29.5 pg (27.0-33.0) 03/21/20 05:28 MCHC 31.6 g/dl (31.0-35.0) 03/21/20 05:28 RDW 13.1 % (11.0-16.0) 03/21/20 05:28 Plt Count 230 X10*3/uL (160-400) 03/21/20 05:28 MPV 12.1 fL (9.4-12.3) 03/21/20 05:28 Immature Gran % (Auto) 0.4 % (0.0-0.4) 03/21/20 05:28 Neut % (Auto) 61.0 % (45-73) 03/21/20 05:28 Lymph % (Auto) 22.7 % (20-40) 03/21/20 05:28 [place] % (Auto) 11.8 % (2-11) H 03/21/20 05:28 Eos % (Auto) 3.4 % (0-4) 03/21/20 05:28 Baso % (Auto) 0.7 % (0-2) 03/21/20 05:28 Lymph # (Auto) 1.2 X10*3/uL (1.2-4.9) 03/21/20 05:28 [place] # (Auto) 0.6 X10*3/uL (0.1-1.2) 03/21/20 05:28 Eos # (Auto) 0.2 X10*3/uL (0.0-0.4) 03/21/20 05:28 Baso # (Auto) 0.0 X10*3/uL (0.0-0.2) 03/21/20 05:28 Abs Immat Gran (auto) 0.02 X10*3/uL (0.00-0.03) 03/21/20 05:28 Absolute Neuts (auto) 3.3 X10*3/uL (2.0-8.3) 03/21/20 05:28 Absolute Nucleated RBC 0.000 X10*3/uL (0.0-0.012) 03/21/20 05:28 Nucleated RBC % (auto) 0.0 /100WBC (0.0-0.2) 03/21/20 05:28 D-Dimer 244 NG/ML 03/19/20 01:42 Hold Blue Top SEE NOTE 03/19/20 01:42 Sodium 143 mmol/L (135-145) 03/21/20 05:28 Potassium 3.8 mmol/l (3.3-5.1) 03/21/20 05:28 Chloride 97 mmol/L (96-108) 03/21/20 05:28 Carbon Dioxide 34 mmol/L (22-29) H 03/21/20 05:28 Anion Gap 16 (12-20) 03/21/20 05:28 BUN 26 mg/dL (9-16) H 03/21/20 05:28 Creatinine 1.24 mg/dL (0.5-1.4) 03/21/20 05:28 Estim Creat Clear Calc 38.8 03/21/20 05:28 Estimated GFR 42 03/21/20 05:28 POC Glucose 168 mg/dL (60-115) H 03/21/20 07:31 Random Glucose 179 mg/dL (60-115) H 03/19/20 01:42 Fasting Glucose 123 mg/dL (60-99) H 03/21/20 05:28 Calcium 9.2 mg/dL (8.4-10.2) 03/21/20 05:28 Magnesium 2.1 mg/dL (1.6-2.6) 03/21/20 05:28 Lactate Dehydrogenase 192 U/L (122-220) 03/19/20 01:43 Troponin I High Sens 46.0 ng/L (<3.5-17.0) H 03/19/20 10:51 C-Reactive Protein 0.27 mg/dL (< or = 0.50) 03/19/20 01:42 C-React Prot High Sens Cancelled 03/19/20 01:43 B-Natriuretic Peptide 488 pg/mL (<100) H 03/19/20 01:42 Urine Color YELLOW 03/20/20 Unknown Urine Appearance CLEAR 03/20/20 Unknown Urine pH 6.0 (5.0-8.0) 03/20/20 Unknown Ur Specific [place] 1.015 (1.005-1.025) 03/20/20 Unknown Urine Protein NEG MG/DL (NEG-TRACE) 03/20/20 Unknown Urine Glucose (UA) 100 MG/DL (NEG) H 03/20/20 Unknown Urine Ketones NEG MG/DL (NEG) 03/20/20 Unknown Urine Blood NEG (NEG) 03/20/20 Unknown Urine Nitrite NEG (NEG) 03/20/20 Unknown Ur Leukocyte Esterase NEG (NEG) 03/20/20 Unknown Coronavirus (PCR) NEGATIVE (Negative) 03/19/20 01:42 Influenza Type A (PCR) NEGATIVE (Negative) 03/19/20 01:42 Influenza Type B (PCR) NEGATIVE (Negative) 03/19/20 01:42 RSV RNA Qual (PCR) NEGATIVE (Negative) 03/19/20 01:42 Discharge Plan Discharge Patient Disposition: Home, Self-Care Referrals: Reji Molina MD [Primary Care Provider] - Discharge Medications: Continued metformin 500 mg Tablet 1,000 mg PO BID RF: 0 levothyroxine 175 mcg Tablet 175 mcg PO DAILY RF: 0 alprazolam 1 mg Tablet 1 mg PO TID RF: 0 simvastatin 40 mg Tablet 40 mg PO DAILY RF: 0 aspirin 81 mg Capsule,Delayed Release(Dr/Ec) 81 mg PO DAILY RF: 0 ferrous sulfate [Iron (ferrous sulfate)] 325 mg (65 mg iron) Tablet 65 mg PO DAILY RF: 0 paroxetine HCl 40 mg Tablet 40 mg PO DAILY RF: 0 carbidopa-levodopa 25-100 mg Tablet 1 tab PO TID RF: 0 losartan 100 mg Tablet 100 mg PO DAILY RF: 0 metoprolol tartrate 25 mg Tablet 25 mg PO BID RF: 0 Tresiba FlexTouch U-100 pen injector 40 units subcut DAILY RF: 0 amlodipine benzoate 10 mg PO DAILY RF: 0 Changed furosemide 40 mg Tablet 60 mg PO DAILY Qty: 60 RF: 0 Activity on Discharge: As tolerated Visit Report Forms: Patient Portal Discharge page Care Plan Goals: recovery Health Concerns: chf, pulm htn Plan of Treatment: increase lasix to 60mg daily, home o2 to keep saturation over 90%
[2020-03-21 11:13] VITALS: BP 130/72; PULSE 59; RESP 18; TEMP 36.7; O2SAT 92
[2020-03-21 11:23] VITALS: PULSE 58; PULSE 64; PULSE 75; O2SAT 88; O2SAT 92; O2SAT 94
[2020-03-21 11:30] LABS: Glucose, Whole Blood 424 mg/dL (60-115)
[2020-03-21] MEDS: Insulin Lispro 100 UNIT/ML 3 ML VIAL 10 UNIT SUBCUT ×2 (12:12)
--- NOTE | 2020-03-21 12:29 | MHC.CM.PN ---
Patient will be discharged home today no services. Dtr will provide transport.
--- NOTE | 2020-03-21 13:17 | PC.NURSE ---
qualified for home o2. reviewed instructions to use 1 L of 2 with activity/ambulation. return demonstration complete with patient and o2 tank. instructed to call [facility] when she gets home.
== END 2020-03-21 13:15 | disposition home or self-care (01) | DRG 291 ==
LOC: HO.ED 02:58 → HO.IMC 07:13
PROVIDERS: Admitting Provider Internal Medicine; Emergency Provider Emergency Medicine Emergency Medical Services; PCP Internal Medicine; Visit Provider Internal Medicine
DX: I11.0 Hypertensive heart disease with heart failure (principal); J96.21 Acute and chronic respiratory failure with hypoxia; J45.901 Unspecified asthma with (acute) exacerbation; E03.9 Hypothyroidism, unspecified; I50.33 Acute on chronic diastolic (congestive) heart failure; G20 Parkinson's disease; I25.10 Atherosclerotic heart disease of native coronary artery without angina pectoris; E11.9 Type 2 diabetes mellitus without complications; Z20.828 Contact with and (suspected) exposure to other viral communicable diseases; Z88.5 Allergy status to narcotic agent; Z79.82 Long term (current) use of aspirin; Z79.84 Long term (current) use of oral hypoglycemic drugs; Z79.890 Hormone replacement therapy; Z79.899 Other long term (current) drug therapy
CPT/HCPCS: 0241U; 36415; 71045; 80048; 81003; 82947; 83615; 83735; 83880; 84484; 85025; 85379; 86140; 93005; 93306; 96374; 99284; 99285; J1650; J1940

== ENCOUNTER 2020-03-29 11:05 | Outpatient (REF) | payer MEDICARE, SELFPAY ==
[2020-03-29 13:50] LABS: Anion Gap 15 (12-20); Blood Urea Nitrogen 39 mg/dL (9-16); Calcium 9.6 mg/dL (8.4-10.2); Carbon Dioxide 28 mmol/L (22-29); Chloride 101 mmol/L (96-108); Cholesterol 140 mg/dL; Estimated Glomerular Filt Rate 24; Glucose Random 162 mg/dL (60-115); HDL Cholesterol 42 mg/dL; LDL Cholesterol Calculated 72 mg/dl; Potassium 5.4 mmol/l (3.3-5.1); Sodium 139 mmol/L (135-145); Triglycerides 133 mg/dL
[2020-03-29 13:59] LABS: B Type Natriuretic Peptide 177 pg/mL (<100)
== END 2020-03-29 11:06 | disposition home or self-care (01) ==
LOC: HO.LAB 11:05
PROVIDERS: PCP Internal Medicine; Visit Provider Nurse Practitioner Family
DX: J96.21 Acute and chronic respiratory failure with hypoxia (principal); I50.33 Acute on chronic diastolic (congestive) heart failure; I11.0 Hypertensive heart disease with heart failure; I25.10 Atherosclerotic heart disease of native coronary artery without angina pectoris; I27.20 Pulmonary hypertension, unspecified; Z98.890 Other specified postprocedural states
CPT/HCPCS: 80048; 80061; 83880; 99212

== ENCOUNTER 2020-04-02 14:05 | Outpatient (REF) | payer MEDICARE, SELFPAY ==
[2020-04-02 14:47] LABS: Anion Gap 15 (12-20); Blood Urea Nitrogen 29 mg/dL (9-16); Calcium 9.8 mg/dL (8.4-10.2); Carbon Dioxide 31 mmol/L (22-29); Chloride 100 mmol/L (96-108); Estimated Glomerular Filt Rate 32; Glucose Random 138 mg/dL (60-115); Sodium 141 mmol/L (135-145)
[2020-04-02 14:54] LABS: B Type Natriuretic Peptide 338 pg/mL (<100)
== END 2020-04-02 14:06 | disposition home or self-care (01) ==
LOC: HO.LAB 14:05
PROVIDERS: PCP Internal Medicine; Visit Provider Nurse Practitioner Family
DX: I50.33 Acute on chronic diastolic (congestive) heart failure (principal)
CPT/HCPCS: 80048; 83880

== ENCOUNTER → 2020-04-18 12:56 | Outpatient (REF) | payer MEDICARE, SELFPAY | LOC: HO.CARD 12:56 | PROVIDERS: PCP Internal Medicine; Visit Provider Internal Medicine Cardiovascular Disease | DX: Z13.89 Encounter for screening for other disorder (principal) | CPT/HCPCS: Q3014 ==

== ENCOUNTER 2020-04-23 15:43 | Outpatient (REF) | payer MEDICARE, SELFPAY ==
[2020-04-23 17:20] LABS: Alanine Aminotransferase 8 U/L (0-31); Albumin Level 4.7 g/dL (3.5-5.0); Alkaline Phosphatase 105 U/L (39-117); Anion Gap 18 (12-20); Aspartate Amino Transferase 17 U/L (5-31); Bilirubin Total 0.3 mg/dL (0.0-1.0); Blood Urea Nitrogen 33 mg/dL (9-16); Calcium 10.1 mg/dL (8.4-10.2); Carbon Dioxide 28 mmol/L (22-29); Chloride 101 mmol/L (96-108); Cholesterol 183 mg/dL; Estimated Glomerular Filt Rate 29; Glucose Random 161 mg/dL (60-115); HDL Cholesterol 50 mg/dL; LDL Cholesterol Calculated 72 mg/dl; Potassium 4.5 mmol/l (3.3-5.1); Sodium 142 mmol/L (135-145); Total Protein 7.7 g/dL (6.5-8.0); Triglycerides 309 mg/dL
[2020-04-23 17:21] LABS: Microalbum/Creatinine Ratio Ur 9.8 ug/mg cr
[2020-04-23 17:44] LABS: Free T4 (Free Thyroxine) 1.42 ng/dL (0.71-1.85); Thyroid Stimulating Hormone 0.02 uIU/mL (0.32-4.0); Vitamin B12 566 pg/mL (200-900); Vitamin D 25-OH Total 19.2 ng/mL (>30)
[2020-04-24 08:48] LABS: LDL Cholesterol Direct 91 mg/dL (<100)
[2020-04-24 19:47] LABS: Thyroglobulin Antibodies 1 IU/mL (< or = 1); Thyroid Peroxidase Antibodies 3 IU/mL (<9)
[2020-04-26 22:02] LABS: Glutamic acid decarboxylase Ab >250 IU/mL (<5)
[2020-05-02 17:02] LABS: Islet Cell Antibody Screen NEGATIVE (NEGATIVE)
== END 2020-04-23 15:44 | disposition home or self-care (01) ==
LOC: HO.LAB 15:43
PROVIDERS: Absent Provider Nurse Practitioner Family; PCP Internal Medicine; Visit Provider Internal Medicine
DX: E11.65 Type 2 diabetes mellitus with hyperglycemia (principal); Z79.4 Long term (current) use of insulin; E03.9 Hypothyroidism, unspecified; E55.9 Vitamin D deficiency, unspecified
CPT/HCPCS: 36415; 80053; 80061; 82043; 82306; 82607; 83721; 84439; 84443; 86255; 86341; 86376; 86800

== ENCOUNTER → 2020-05-01 12:50 | Outpatient (BNVA) | payer MEDICARE, SELFPAY | PROVIDERS: PCP Internal Medicine; Visit Provider Internal Medicine Cardiovascular Disease | DX: I50.30 Unspecified diastolic (congestive) heart failure (principal); I25.10 Atherosclerotic heart disease of native coronary artery without angina pectoris; N18.9 Chronic kidney disease, unspecified | CPT/HCPCS: 99212 ==

== ENCOUNTER 2020-06-05 15:04 | Outpatient (REF) | payer MEDICARE, SELFPAY ==
[2020-06-05 16:36] LABS: Creatinine Urine 136.48 mg/dL
[2020-06-05 16:44] LABS: B Type Natriuretic Peptide 176 pg/mL (<100)
[2020-06-05 16:48] LABS: Anion Gap 15 (12-20); Blood Urea Nitrogen 29 mg/dL (9-16); Calcium 9.5 mg/dL (8.4-10.2); Carbon Dioxide 29 mmol/L (22-29); Chloride 98 mmol/L (96-108); Estimated Glomerular Filt Rate 28; Glucose Random 383 mg/dL (60-115); Potassium 4.7 mmol/L (3.3-5.1); Sodium 137 mmol/L (135-145)
== END 2020-06-05 15:05 | disposition home or self-care (01) ==
LOC: HO.LAB 15:04
PROVIDERS: Internal Medicine; Nurse Practitioner Family; PCP Internal Medicine; Visit Provider Internal Medicine Cardiovascular Disease
DX: I50.33 Acute on chronic diastolic (congestive) heart failure (principal); I25.10 Atherosclerotic heart disease of native coronary artery without angina pectoris; Z79.899 Other long term (current) drug therapy
CPT/HCPCS: 36415; 80048; 83880; 99212

== ENCOUNTER → 2020-06-26 13:08 | Outpatient (BNVA) | payer MEDICARE, SELFPAY | PROVIDERS: PCP Internal Medicine; Visit Provider Internal Medicine Cardiovascular Disease | DX: I25.10 Atherosclerotic heart disease of native coronary artery without angina pectoris (principal); I50.30 Unspecified diastolic (congestive) heart failure | CPT/HCPCS: 99212 ==

== ENCOUNTER 2020-08-24 12:46 | Outpatient (REF) | payer MEDICARE, SELFPAY | END 2020-08-24 12:47 | disposition home or self-care (01) | LOC: HO.LAB 12:46 | PROVIDERS: Absent Provider Internal Medicine; PCP Internal Medicine; Visit Provider Internal Medicine | DX: Z13.89 Encounter for screening for other disorder (principal) ==

== ENCOUNTER 2020-08-25 10:26 | Outpatient (REF) | payer MEDICARE, SELFPAY ==
[2020-08-25 11:08] LABS: Estimated Average Glucose 220 mg/dL; Hemoglobin A1c % 9.3 %
[2020-08-25 11:19] LABS: Anion Gap 17 (12-20); Blood Urea Nitrogen 21 mg/dL (9-16); Calcium 9.7 mg/dL (8.4-10.2); Carbon Dioxide 28 mmol/L (22-29); Chloride 102 mmol/L (96-108); Estimated Glomerular Filt Rate 35; Glucose Random 159 mg/dL (60-115); Potassium 3.9 mmol/L (3.3-5.1); Sodium 143 mmol/L (135-145)
[2020-08-25 11:26] LABS: B Type Natriuretic Peptide 634 pg/mL (<100)
== END 2020-08-25 10:27 | disposition home or self-care (01) ==
LOC: HO.LAB 10:26
PROVIDERS: Absent Provider Internal Medicine Cardiovascular Disease; PCP Internal Medicine; Referring Provider Internal Medicine; Visit Provider Internal Medicine
DX: I50.30 Unspecified diastolic (congestive) heart failure (principal); N18.9 Chronic kidney disease, unspecified
CPT/HCPCS: 36415; 80048; 83036; 83880

== ENCOUNTER → 2020-08-27 08:27 | Outpatient (BNVA) | payer MEDICARE, SELFPAY | PROVIDERS: PCP Internal Medicine; Visit Provider Internal Medicine ==

== ENCOUNTER 2020-09-03 12:19 | Outpatient (REF) | payer MEDICARE, SELFPAY ==
--- NOTE | ~2020-09-03 | XR_ITS ---
EXAMINATION: XR HAND, RIGHT CLINICAL INFORMATION: Pain. Rule out fracture. COMPARISON: Right finger x-ray July 2009 TECHNIQUE: PA, lateral, and oblique views of the right hand. FINDINGS: Bone alignment is normal. No fracture or dislocation is seen. There is joint space narrowing at the IP joints. There is joint space narrowing at the first FPC joint. There is joint space narrowing at the radiocarpal joint. There is joint space narrowing at the distal radial ulnar joint. Soft tissues are unremarkable. XR/XR hand RT min 3V IMPRESSION: Degenerative changes. No fracture or dislocation is seen.
== END 2020-09-03 12:20 | disposition home or self-care (01) ==
LOC: HO.HMGCX 12:19
PROVIDERS: PCP Internal Medicine; Visit Provider Internal Medicine
DX: M79.641 Pain in right hand (principal)
CPT/HCPCS: 73130

== ENCOUNTER → 2020-10-29 11:23 | Outpatient (BNVA) | payer MEDICARE, SELFPAY | PROVIDERS: PCP Internal Medicine; Visit Provider Internal Medicine | DX: E11.65 Type 2 diabetes mellitus with hyperglycemia (principal); E55.9 Vitamin D deficiency, unspecified; E78.5 Hyperlipidemia, unspecified; E03.9 Hypothyroidism, unspecified; I10 Essential (primary) hypertension; Z79.4 Long term (current) use of insulin | CPT/HCPCS: 82947; 99212 ==

== ENCOUNTER → 2020-12-25 10:05 | Outpatient (BNVA) | payer MEDICARE, SELFPAY | PROVIDERS: PCP Internal Medicine; Referring Provider Internal Medicine; Visit Provider Internal Medicine Cardiovascular Disease | DX: I25.10 Atherosclerotic heart disease of native coronary artery without angina pectoris (principal); I50.30 Unspecified diastolic (congestive) heart failure | CPT/HCPCS: 99212 ==

== ENCOUNTER → 2021-01-28 08:41 | Outpatient (REF) | payer MEDICARE, SELFPAY ==
--- NOTE | 2021-01-28 08:53 | CA_ITS ---
Transthoracic Echocardiogram Patient (Last, First, Middle): Bianca Hunt A Gender: Female Date of : 1945 Age: 76 Procedure Date: 01/28/2021 Procedure Type: Transthoracic Echocardiogram Location: OP Height: 157.48 cm Weight: 78.47 kg BSA: 1.80 m2 Heart Rate: bpm BP: 118 / 70 mmHg Marketing Proposal Specialist: VH/CP Referring MD: Shaun Saleh MD Symptoms: I50.30 - Unspecified diastolic (congestive) heart failure Study Quality: Fair ECG Rhythm: Atrial Fibrillation Conclusions: - The left ventricular systolic function is normal. The calculated ejection fraction is 61% by biplane method. - There is mild calcification of the aortic valve. Findings Left Ventricle Normal left ventricular cavity size. There is normal left ventricular wall thickness. The left ventricular systolic function is normal. The calculated ejection fraction is 61% by biplane method. There is no evidence of regional wall motion abnormalities. Diastolic function is indeterminate on the basis of available data. Right Ventricle Normal right ventricular cavity size and systolic function. Atria The left atrium is moderately dilated. The right atrium is normal in size. Aortic Valve The aortic valve was not well visualized. There is a normal trileaflet aortic valve. There is mild calcification of the aortic valve. The mean gradient is 4 mmHg. There is no aortic valve regurgitation. No significant aortic stenosis. Mitral Valve The mitral valve appears normal. There is trace mitral valve regurgitation. There is no mitral valve stenosis. Pulmonic Valve The pulmonic valve was not well visualized. Tricuspid Valve There is trace tricuspid valve regurgitation. Tricuspid regurgitation envelope is inadequate for calculation of right ventricular systolic pressure. Great Vessels The aortic annulus, sinuses of valsalva, and asc aorta are normal in size. Venous The inferior vena cava is normal in size. Pericardium/Pleural Prominent epicardial adipose tissue noted. There is no evidence of pericardial effusion. Prior Study Comparison No significant change compared to prior study dated: 03/21/2020. Unable to assess RVSP. Measurements 2D Linear Measurements IVSd: 0.95 0.6-0.9/0.6-1.0 cm LVIDd: 4.72 3.9-5.3/4.2-5.9 cm LVIDd Index: 2.62 2.4-3.2/2.2-3.1 cm/m2 LVIDs: 3.59 2.0-3.6 cm LVPWd: 0.88 0.7-1.1 cm Ao Root: 3.00 2.1-3.5 cm LA Diam: 3.80 2.7-3.8/3.0-4.0 cm LAIDs Index: 2.11 1.5-2.3 cm/m2 LV Mass: 183.56 67-162/88-224 g LV Mass Index: 101.98 43-95/49-115 g/m2 LVOT Diam: 2.00 3.0+(-)1.3 cm 2D Systolic Function EF 4C: 56.50 >55% EF 2C: 63.70 >55% EF BiP: 60.90 >55% Mitral Valve MV Pk E: 0.94 MV Decel Time: 165.00 E'Lateral: 7.72 E'Medial: 8.49 E/E' Med: 11.10 E/E' Lat: 12.20 PHT: 48.00 MVA PHT: 4.58 Decel Mason: 5.70 Aortic Valve AoV Pk Robert: 1.19 AoV Mn Robert: 0.89 AoV VTI: 0.30 AoV Pk Grad: 6.00 Aov Mn Grad: 4.00 RHONDA Cont.VTI: 1.47 LVOT LVOT Pk Robert: 0.59 LVOT Mn Robert: 0.44 LVOT VTI: 0.14 LVOT Pk Grad: 1.00 LVOT Mn Grad: 1.00 LVOT Diam: 2.00 LVOT Area: 3.14 Diastolic Function MV Pk E: 0.94 E'Medial: 8.49 E/E' Med: 11.10 E' Laterial: 7.72 E/E' Lat: 12.20 Right Ventricle TAPSE (mm): 18.70 TVS' Robert: 9.25 Great Vessels Aorta Ao Root-2D: 3.00 2.0-3.7 cm Ao Asc: 2.90 2.1-3.4 cm Updated in Other Vendor System with Status of Final Erik Hays MD electronically signed on 01/28/2021 4:25:06 PM with status of Final
[2021-01-28 09:20] LABS: Estimated Average Glucose 203 mg/dL; Hemoglobin A1c % 8.7 %
[2021-01-28 09:30] LABS: Alanine Aminotransferase 28 U/L (0-31); Albumin Level 4.5 g/dL (3.5-5.0); Alkaline Phosphatase 136 U/L (39-117); Anion Gap 13 (12-20); Aspartate Amino Transferase 26 U/L (5-31); Bilirubin Total 0.5 mg/dL (0.0-1.0); Blood Urea Nitrogen 25 mg/dL (9-16); Calcium 9.9 mg/dL (8.4-10.2); Carbon Dioxide 33 mmol/L (22-29); Chloride 104 mmol/L (96-108); Cholesterol 179 mg/dL; Estimated Glomerular Filt Rate 31; Glucose Random 122 mg/dL (60-115); HDL Cholesterol 44 mg/dL; LDL Cholesterol Calculated 97 mg/dl; Potassium 4.2 mmol/L (3.3-5.1); Sodium 146 mmol/L (135-145); Total Protein 7.4 g/dL (6.5-8.0); Triglycerides 190 mg/dL
[2021-01-28 09:37] LABS: B Type Natriuretic Peptide 321 pg/mL (<100)
[2021-01-28 09:53] LABS: Free T4 (Free Thyroxine) 1.07 ng/dL (0.71-1.85); Thyroid Stimulating Hormone 2.06 uIU/mL (0.32-4.0)
[2021-01-28 11:36] LABS: Creatinine Urine 105.09 mg/dL; Microalbum/Creatinine Ratio Ur 15.2 ug/mg cr
[2021-01-29 06:30] LABS: LDL Cholesterol Direct 97 mg/dL (<100)
== END ==
LOC: HO.CARD 08:41
PROVIDERS: Internal Medicine; PCP Internal Medicine; Visit Provider Internal Medicine Cardiovascular Disease
DX: I50.30 Unspecified diastolic (congestive) heart failure (principal); E11.65 Type 2 diabetes mellitus with hyperglycemia; E03.9 Hypothyroidism, unspecified; Z79.4 Long term (current) use of insulin
CPT/HCPCS: 36415; 80053; 80061; 82043; 83036; 83721; 83880; 84439; 84443; 93306

== ENCOUNTER → 2021-02-18 12:27 | Outpatient (BNVA) | payer MEDICARE, SELFPAY | PROVIDERS: PCP Internal Medicine; Visit Provider Internal Medicine | DX: E11.65 Type 2 diabetes mellitus with hyperglycemia (principal); E55.9 Vitamin D deficiency, unspecified; E78.5 Hyperlipidemia, unspecified; E03.9 Hypothyroidism, unspecified; I10 Essential (primary) hypertension; Z79.4 Long term (current) use of insulin | CPT/HCPCS: 82947; 99212 ==

== ENCOUNTER 2021-02-26 12:39 | Outpatient (REF) | payer MEDICARE, SELFPAY ==
[2021-02-26 13:39] LABS: COVID-19 Test Negative (Negative)
== END 2021-02-26 12:40 | disposition home or self-care (01) ==
LOC: HO.LAB 12:39
PROVIDERS: PCP Internal Medicine; Visit Provider Internal Medicine
DX: Z20.822 Contact with and (suspected) exposure to COVID-19 (principal)
CPT/HCPCS: 36415; 87635; C9803

== ENCOUNTER → 2021-04-23 12:27 | Outpatient (BNVA) | payer MEDICARE, SELFPAY | PROVIDERS: PCP Internal Medicine; Visit Provider Registered Nurse Diabetes Educator | DX: E11.65 Type 2 diabetes mellitus with hyperglycemia (principal); Z79.4 Long term (current) use of insulin | CPT/HCPCS: 99211 ==

== ENCOUNTER → 2021-04-26 10:59 | Outpatient (BNVA) | payer MEDICARE, SELFPAY | PROVIDERS: PCP Internal Medicine; Referring Provider Internal Medicine; Visit Provider Internal Medicine Cardiovascular Disease | DX: I50.30 Unspecified diastolic (congestive) heart failure (principal); I25.10 Atherosclerotic heart disease of native coronary artery without angina pectoris | CPT/HCPCS: 99212 ==

== ENCOUNTER → 2021-05-14 12:32 | Outpatient (BNVA) | payer MEDICARE, SELFPAY | PROVIDERS: PCP Internal Medicine; Visit Provider Registered Nurse Diabetes Educator | DX: E11.65 Type 2 diabetes mellitus with hyperglycemia (principal); Z79.4 Long term (current) use of insulin | CPT/HCPCS: 99211 ==

== ENCOUNTER → 2021-05-28 12:22 | Outpatient (BNVA) | payer MEDICARE, SELFPAY | PROVIDERS: PCP Internal Medicine; Visit Provider Registered Nurse Diabetes Educator | DX: E11.65 Type 2 diabetes mellitus with hyperglycemia (principal); Z79.4 Long term (current) use of insulin | CPT/HCPCS: 99211 ==

== ENCOUNTER → 2021-06-17 13:26 | Outpatient (BNVA) | payer MEDICARE, SELFPAY | PROVIDERS: PCP Internal Medicine; Visit Provider Nurse Practitioner Gerontology | DX: E11.9 Type 2 diabetes mellitus without complications (principal); E78.5 Hyperlipidemia, unspecified; E55.9 Vitamin D deficiency, unspecified; E03.9 Hypothyroidism, unspecified; I10 Essential (primary) hypertension | CPT/HCPCS: 82947; 99212 ==

== ENCOUNTER 2021-07-10 11:07 | Outpatient (REF) | payer MEDICARE, SELFPAY ==
[2021-07-10 12:13] LABS: Hematocrit 53.2 % (37.0-47.0); Hemoglobin 16.6 g/dl (12.0-16.0); Mean Corpuscular HGB Conc 31.2 g/dl (31.0-35.0); Mean Corpuscular Hemoglobin 31.2 pg (27.0-33.0); Platelet Count 210 X10*3/uL (160-400); Red Blood Count 5.32 X10*6/uL (4.20-5.50); Red Cell Distribution Width 12.8 % (11.0-16.0); White Blood Count 7.3 X10*3/uL (4.8-10.8)
[2021-07-10 13:01] LABS: Anion Gap 14 (12-20); Blood Urea Nitrogen 32 mg/dL (9-16); Calcium 9.9 mg/dL (8.4-10.2); Carbon Dioxide 31 mmol/L (22-29); Chloride 100 mmol/L (96-108); Estimated Glomerular Filt Rate 26; Potassium 4.4 mmol/L (3.3-5.1); Sodium 141 mmol/L (135-145)
== END 2021-07-10 11:08 | disposition home or self-care (01) ==
LOC: HO.LAB 11:07
PROVIDERS: Absent Provider Internal Medicine; PCP Internal Medicine; Visit Provider Internal Medicine Hypertension Specialist
DX: I12.9 Hypertensive chronic kidney disease with stage 1 through stage 4 chronic kidney disease, or unspecified chronic kidney disease (principal); N18.9 Chronic kidney disease, unspecified
CPT/HCPCS: 36415; 80051; 82310; 82565; 84520; 85027

== ENCOUNTER → 2021-07-26 11:00 | Outpatient (BNVA) | payer MEDICARE, SELFPAY | PROVIDERS: PCP Internal Medicine; Visit Provider Registered Nurse Diabetes Educator | DX: E11.22 Type 2 diabetes mellitus with diabetic chronic kidney disease (principal); N18.9 Chronic kidney disease, unspecified; Z79.4 Long term (current) use of insulin | CPT/HCPCS: 99211 ==

== ENCOUNTER → 2021-08-14 13:05 | Outpatient (BNVA) | payer MEDICARE, SELFPAY | PROVIDERS: PCP Internal Medicine; Referring Provider Internal Medicine; Visit Provider Internal Medicine Cardiovascular Disease | DX: I48.19 Other persistent atrial fibrillation (principal); I25.10 Atherosclerotic heart disease of native coronary artery without angina pectoris; I50.30 Unspecified diastolic (congestive) heart failure; Z79.01 Long term (current) use of anticoagulants; Z79.899 Other long term (current) drug therapy | CPT/HCPCS: 93005; 99212 ==

== ENCOUNTER → 2021-08-23 14:50 | Outpatient (REF) | payer MEDICARE, SELFPAY ==
--- NOTE | 2021-08-23 14:53 | HM_ITS ---
Conclusion: 1. Patient was monitored for total period of 2 days and 18 hours 2. Baseline rhythm is atrial fibrillation with average heart of 75 beats per minute with good rate control 3. No significant pauses or bradycardia 4. Rare PVCs 5. No patient reported events MTDD
== END ==
LOC: HO.CARD 14:50
PROVIDERS: Visit Provider Internal Medicine Cardiovascular Disease
DX: I48.19 Other persistent atrial fibrillation (principal)
CPT/HCPCS: 93242

== ENCOUNTER 2021-09-10 10:18 | Outpatient (REF) | payer MEDICARE, SELFPAY ==
[2021-09-10 11:28] LABS: Anion Gap 14 (12-20); Blood Urea Nitrogen 18 mg/dL (9-16); Calcium 9.8 mg/dL (8.4-10.2); Carbon Dioxide 25 mmol/L (22-29); Chloride 103 mmol/L (96-108); Estimated Glomerular Filt Rate 38; Potassium 4.4 mmol/L (3.3-5.1); Sodium 138 mmol/L (135-145)
[2021-09-10 12:00] LABS: Creatinine Urine 197.68 mg/dL
== END 2021-09-10 10:19 | disposition home or self-care (01) ==
LOC: HO.LAB 10:18
PROVIDERS: PCP Internal Medicine; Visit Provider Internal Medicine Hypertension Specialist
DX: N18.32 Chronic kidney disease, stage 3b (principal)
CPT/HCPCS: 36415; 80051; 82310; 82565; 84520

== ENCOUNTER 2021-09-30 12:23 | Outpatient (REF) | payer MEDICARE, SELFPAY ==
--- NOTE | ~2021-09-30 | XR_ITS ---
EXAMINATION: XR LUMBOSACRAL SPINE CLINICAL INFORMATION: Low back pain. COMPARISON: None TECHNIQUE: Three views of the lumbosacral spine. FINDINGS: There is normal lumbar lordosis. The vertebral heights and alignment is normal. There is loss of L2-L3 disc height with mild end plate sclerosis. Rest of the disc heights are maintained normal. There is mild mild bilateral facet joint arthropathy L5-S1 and L4-L5 disc levels. There is minimal levoscoliosis. No acute fracture, dislocation or lytic process seen. XR/XR lumbar spine 2-3V IMPRESSION: Mild levoscoliosis. Degenerative disc changes L2-L3 disc level with endplate sclerosis. No acute fracture or dislocation. Mild facet joint arthropathy L4-L5 and L5-S1 disc levels.
== END 2021-09-30 12:24 | disposition home or self-care (01) ==
LOC: HO.HMGCLDS 12:23
PROVIDERS: Visit Provider Internal Medicine
DX: M54.50 Low back pain, unspecified (principal)
CPT/HCPCS: 72100

== ENCOUNTER → 2021-10-30 10:37 | Outpatient (REF) | payer MEDICARE, SELFPAY ==
--- NOTE | ~2021-10-30 | NM_ITS ---
TC-PYP Cardiac Study INDICATION: Evaluation for Cardiac Amyloidosis CLINICAL HISTORY: 76 years old Female with diastolic heart failure TECHNIQUE: 25 mCi of Tc-99m pyrophosphate was injected intravenously. Planar images of the chest were obtained in the anterior and left lateral views at 3 hours.. SPECT-CT images of the chest were also obtained. Total DLP 121 mGy-cm COMPARISON: None FINDINGS: 1. Image Quality: Excellent 2. Semi-quantitative visual scoring of the cardiac uptake is performed as follows: 0 = absent cardiac uptake and intense bone uptake, consistent with absence of ATTR type amyloidosis 3. H-CL Ratio if Applicable: Not applicable 4. Ancillary Finds: None NM/NM TC PYP cardiac amyloidosis IMPRESSION: 1. No evidence of ATTR type amyloidosis deposits in the myocardium 2. Please note that the Tc 99m PYP is more sensitive in detecting transthyretin-related cardiac amyloidosis than that of light-chain cardiac amyloidosis.
== END ==
LOC: HO.NUCMED 10:37
PROVIDERS: PCP Internal Medicine; Visit Provider Internal Medicine Cardiovascular Disease
DX: I50.30 Unspecified diastolic (congestive) heart failure (principal); I48.19 Other persistent atrial fibrillation
CPT/HCPCS: 78803; A9538

== ENCOUNTER → 2021-11-05 12:22 | Outpatient (BNVA) | payer MEDICARE, SELFPAY | PROVIDERS: PCP Internal Medicine; Referring Provider Internal Medicine; Visit Provider Internal Medicine Cardiovascular Disease | DX: I48.19 Other persistent atrial fibrillation (principal); I50.30 Unspecified diastolic (congestive) heart failure; I25.10 Atherosclerotic heart disease of native coronary artery without angina pectoris | CPT/HCPCS: 99212 ==

== ENCOUNTER 2022-01-21 12:43 | Outpatient (REF) | payer MEDICARE, SELFPAY ==
[2022-01-21 13:05] LABS: MANUAL DIFF FLAG NO
[2022-01-21 14:33] LABS: Basophils Absolute Auto 0.1 X10*3/uL (0.0-0.2); Eosinophils Absolute Auto 0.1 X10*3/uL (0.0-0.4); Hematocrit 48.5 % (37.0-47.0); Hemoglobin 15.8 g/dl (12.0-16.0); Imm Gran Abs Auto 0.04 X10*3/uL (0.00-0.03); Imm Gran Pct Auto 0.6 % (0.0-0.4); Lymphocytes Absolute Auto 1.1 X10*3/uL (1.2-4.9); Lymphocytes Percent Auto 16.2 % (20-40); Mean Corpuscular HGB Conc 32.6 g/dl (31.0-35.0); Mean Corpuscular Hemoglobin 30.8 pg (27.0-33.0); Mean Corpuscular Volume 94.5 fL (80.0-98.0); Mean Platelet Volume 11.8 fL (9.4-12.3); Monocytes Absolute Auto 0.6 X10*3/uL (0.1-1.2); Monocytes Percent Auto 8.6 % (2-11); Neutrophils Percent Auto 72.6 % (45-73); Platelet Count 225 X10*3/uL (160-400); Red Blood Count 5.13 X10*6/uL (4.20-5.50); Red Cell Distribution Width 12.6 % (11.0-16.0); White Blood Count 6.9 X10*3/uL (4.8-10.8)
[2022-01-21 14:52] LABS: Anion Gap 17 (12-20); Blood Urea Nitrogen 24 mg/dL (9-16); Carbon Dioxide 30 mmol/L (22-29); Chloride 100 mmol/L (96-108); Estimated Glomerular Filt Rate 37; Glucose Random 273 mg/dL (60-115); Potassium 4.8 mmol/L (3.3-5.1); Sodium 142 mmol/L (135-145)
[2022-01-21 16:46] LABS: Total Protein Urine Random < 7 mg/dL (<12)
== END 2022-01-21 12:44 | disposition home or self-care (01) ==
LOC: HO.LAB 12:43
PROVIDERS: PCP Internal Medicine; Visit Provider Internal Medicine Hypertension Specialist
DX: N18.32 Chronic kidney disease, stage 3b (principal)
CPT/HCPCS: 36415; 80048; 84156; 85025

== ENCOUNTER → 2022-02-05 09:59 | Outpatient (REF) | payer MEDICARE, SELFPAY ==
--- NOTE | 2022-02-05 10:03 | CA_ITS ---
Transthoracic Echocardiogram Patient (Last, First, Middle): Bianca Hunt A Gender: Female Date of : 1945 Age: 77 Procedure Date: 02/05/2022 Procedure Type: Transthoracic Echocardiogram Location: OP Height: 157.48 cm Weight: 73.94 kg BSA: 1.75 m2 Heart Rate: bpm BP: 128 / 72 mmHg Senior Technical Manager: MARJORIE Referring MD: Shaun Saleh MD Obgyn Specialist: hSaun Saleh MD Symptoms: I50.30 - Unspecified diastolic (congestive) heart failure Study Quality: Fair ECG Rhythm: Atrial Fibrillation Conclusions: - 1. Normal LV systolic function 2. Mildly dilated left atrium 3. Normal cardiac valvular Dopplers 4. Mildly elevated right ventricular systolic pressure 5. Small loculated pericardial effusion near the left ventricle Findings Left Ventricle Normal left ventricular size, thickness, and systolic function. The visually estimated ejection fraction is between 55-60%. Diastolic function is indeterminate on the basis of available data. Right Ventricle Normal right ventricular cavity size and systolic function. Atria The left atrium is mildly dilated. Interatrial shunt cannot be excluded. The right atrium was not well visualized. Aortic Valve There is mild calcification of the aortic valve. There is no aortic valve regurgitation. Mitral Valve There is mild anterior and posterior mitral leaflet thickening. There is mild mitral annular calcification. There is trace mitral valve regurgitation. There is no mitral valve stenosis. Pulmonic Valve The pulmonic valve was not well visualized. Tricuspid Valve Likely normal tricuspid valve structure and function. There is mild tricuspid valve regurgitation. Mild pulmonary hypertension is present. Great Vessels All visible segments of the aorta are normal in size. The pulmonary artery was not well visualized. Venous The inferior vena cava is normal in size and collapses greater than 50% with inspiration. Pericardium/Pleural There is a small loculated pericardial effusion overlying the left ventricle. Prior Study Comparison No significant change compared to prior study dated: 01/28/2021. Measurements 2D Linear Measurements IVSd: 1.36 0.6-0.9/0.6-1.0 cm LVIDd: 3.71 3.9-5.3/4.2-5.9 cm LVIDd Index: 2.12 2.4-3.2/2.2-3.1 cm/m2 LVIDs: 2.56 2.0-3.6 cm LVPWd: 1.27 0.7-1.1 cm LA Diam: 3.90 2.7-3.8/3.0-4.0 cm LAIDs Index: 2.23 1.5-2.3 cm/m2 LV Mass: 211.93 67-162/88-224 g LV Mass Index: 121.10 43-95/49-115 g/m2 LVOT Diam: 2.00 3.0+(-)1.3 cm 2D Systolic Function EF 4C: 55.80 >55% EF 2C: 66.10 >55% EF BiP: 60.90 >55% Mitral Valve MV Pk E: 0.99 Aortic Valve AoV Pk Robert: 1.19 AoV Pk Grad: 6.00 RHODNA: 1.68 LVOT LVOT Pk Robert: 0.67 LVOT Mn Robert: 0.48 LVOT VTI: 0.14 LVOT Pk Grad: 2.00 LVOT Mn Grad: 1.00 LVOT Diam: 2.00 LVOT Area: 3.14 Diastolic Function MV Pk E: 0.99 Right Ventricle TAPSE (mm): 11.70 TVS' Robert: 7.40 Tricuspid Valve TR Pk Robert: 3.01 TR Pk Grad: 36.00 RA Press: 3.00 RVSP: 39.00 Great Vessels Aorta Sinus of Valsalva: 3.00 2.0-3.5 cm Ao Asc: 3.10 2.1-3.4 cm Pulmonary Valve PV Pk Robert: 0.77 Peak PV Grad: 2.00 Updated in Other Vendor System with Status of Final Shaun Saleh MD electronically signed on 02/06/2022 11:05:27 AM with status of Final
== END ==
LOC: HO.CARD 09:59
PROVIDERS: PCP Internal Medicine; Visit Provider Internal Medicine Cardiovascular Disease
DX: I50.30 Unspecified diastolic (congestive) heart failure (principal)
CPT/HCPCS: 93306

== ENCOUNTER → 2022-06-17 12:09 | Outpatient (BNVA) | payer MEDICARE, SELFPAY | PROVIDERS: PCP Internal Medicine; Referring Provider Internal Medicine; Visit Provider Internal Medicine Cardiovascular Disease | DX: I50.30 Unspecified diastolic (congestive) heart failure (principal); I48.19 Other persistent atrial fibrillation; Z79.01 Long term (current) use of anticoagulants | CPT/HCPCS: 93005; 99212 ==

== ENCOUNTER 2022-07-28 13:52 | Outpatient (REF) | payer MEDICARE, SELFPAY ==
[2022-07-28 16:05] LABS: Anion Gap 13 (12-20); Blood Urea Nitrogen 23 mg/dL (9-16); Calcium 9.7 mg/dL (8.4-10.2); Carbon Dioxide 30 mmol/L (22-29); Chloride 102 mmol/L (96-108); Estimated Glomerular Filt Rate 32; Glucose Random 236 mg/dL (60-115); Potassium 4.8 mmol/L (3.3-5.1); Sodium 140 mmol/L (135-145)
[2022-07-28 16:11] LABS: Creatinine Urine 144.02 mg/dL; Protein/Creatinine Ratio, Ur 0.07 (<0.2); Total Protein Urine Random 10 mg/dL (<12)
== END 2022-07-28 13:53 | disposition home or self-care (01) ==
LOC: HO.LAB 13:52
PROVIDERS: PCP Internal Medicine; Visit Provider Internal Medicine Hypertension Specialist
DX: N18.30 Chronic kidney disease, stage 3 unspecified (principal)
CPT/HCPCS: 36415; 80048; 84156

== ENCOUNTER 2022-10-30 11:23 | Outpatient (REF) | payer MEDICARE, SELFPAY ==
--- NOTE | ~2022-10-30 | MM_ITS ---
EXAMINATION: MM SCREENING DIGITAL BREAST TOMOSYNTHESIS, BILATERAL CLINICAL INFORMATION: Screening. Asymptomatic. The lifetime risk of breast cancer based on the Tyrer-Cuzick Model is 2%. COMPARISON: Mammography: This study is compared with prior exams dating back to 2017. TECHNIQUE: Digital breast tomosynthesis is performed in both the craniocaudal and mediolateral oblique views along with computer-aided detection (CAD). Synthesized 2D images are generated from the tomosynthesis. FINDINGS: The breasts are almost entirely fatty (ACR BI-RADS breast composition Category a). There are no significant masses, abnormal calcifications, or other abnormalities. MM/MM tomosynthesis screening BI IMPRESSION: No mammographic evidence of malignancy. ASSESSMENT: BI-RADS BI-RADS 1 - Negative RECOMMENDATION: Routine annual mammography screening. 1 year F/U This examination should not preclude the clinical evaluation of a suspicious palpable abnormality. This patient's information was entered into a reminder system with a target due date for their next mammogram.
--- NOTE | ~2022-10-30 | MM_ITS ---
EXAMINATION: BONE DENSITOMETRY CLINICAL INDICATION: Asymptomatic menopausal state. COMPARISON: Baseline BD dated 04/27/2006. TECHNIQUE: Using a X[employer] DXA System (software version: 13.1) manufactured by [employer], dual-energy x-ray absorptiometry was performed of the lumbar spine and left hip. The images are of good technical quality. Summary results are attached. FINDINGS: LEFT FEMUR, NECK: Current: BMD 0.774 g/cm2, Z-score -0.2, T-score -1.9, osteopenia. Baseline: BMD 0.854 g/cm2. LEFT FEMUR, TOTAL: Current: BMD 0.900 g/cm2, Z-score 0.7, T-score -0.9, normal, 7.2% decrease from baseline (<5% change is not significant). Baseline: BMD 0.970 g/cm2. AP SPINE L1-L4: Current: BMD 1.202 g/cm2, Z-score 1.6, T-score 0.2, normal, 2.7% decrease from baseline (<5% change is not significant). Baseline: BMD 1.235 g/cm2. IDENTIFIED RISK FACTORS: Height loss, renal, history of fracture (adult). Early menopause, secondary osteoporosis, hysterectomy, left oophorectomy. HISTORY OF FRACTURE: Wrist. MEDICATIONS: Vitamin D. MM/XR DEXA axial skeleton IMPRESSION: 1. DIAGNOSIS: Osteopenia based on the lowest T-score value of -1.9 in the femoral neck applying World Health Organization criteria. 2. 10-YEAR FRACTURE RISK PREDICTION, FRAX: Major osteoporotic fracture (clinical spine, forearm, hip or shoulder) 19.6%. Hip fracture 4.6%. 3. Treatment Recommendations: NOF guidelines recommend consideration for treatment in postmenopausal women and men age 50 and older presenting with the following: -A hip or vertebral (clinical or morphometric) fracture. -T-score less than or equal to -2.5 at the femoral neck or spine after appropriate evaluation to exclude secondary causes. -Low bone mass at the hip or spine and a 10-year fracture probability by FRAX of greater than or equal to 3% for hip fracture or greater than or equal to 20% for major osteoporotic fracture based on the [place] adapted WHO algorithm. 4. Other Recommendations: All treatment decisions require clinical judgment and consideration of individual patient factors, including patient preferences, comorbidities, previous drug use, risk factors not captured in the FRAX model (e.g. frailty, falls, vitamin D deficiency, increased bone turnover, interval significant decline in bone density) and possible under or overestimation of fracture risk by FRAX. Additional medical evaluation for secondary cause of low bone mineral density may be appropriate. FUTURE SCAN RECOMMENDATION: People with diagnosed cases of osteoporosis or at high risk for fracture should have regular bone mineral density tests. For patients eligible for Medicare, routine testing is allowed once every 2 years. The testing frequency can be increased to one year for patients who have rapidly progressing disease, those who are receiving or discontinuing medical therapy to restore bone mass, or have additional risk factors.
== END 2022-10-30 11:24 | disposition home or self-care (01) ==
LOC: HO.MAMMO 11:23
PROVIDERS: PCP Internal Medicine; Visit Provider Internal Medicine
DX: Z12.31 Encounter for screening mammogram for malignant neoplasm of breast (principal); Z13.820 Encounter for screening for osteoporosis; Z78.0 Asymptomatic menopausal state
CPT/HCPCS: 77063; 77067; 77080

== ENCOUNTER → 2022-10-30 12:45 | Outpatient (BNV) | payer MEDICARE, SELFPAY | PROVIDERS: PCP Internal Medicine; Visit Provider Radiology Diagnostic Radiology | DX: Z12.31 Encounter for screening mammogram for malignant neoplasm of breast (principal) | CPT/HCPCS: 77063; 77067 ==

== ENCOUNTER 2022-12-22 12:19 | Outpatient (REF) | payer MEDICARE, SELFPAY ==
[2022-12-22 14:47] LABS: Anion Gap 13 (12-20); Blood Urea Nitrogen 27 mg/dL (9-16); Carbon Dioxide 26 mmol/L (22-29); Chloride 103 mmol/L (96-108); Estimated Glomerular Filt Rate 40; Glucose Random 238 mg/dL (60-115); Potassium 4.5 mmol/L (3.3-5.1); Sodium 137 mmol/L (135-145)
== END 2022-12-22 12:20 | disposition home or self-care (01) ==
LOC: HO.LAB 12:19
PROVIDERS: PCP Internal Medicine; Referring Provider Internal Medicine; Visit Provider Internal Medicine Cardiovascular Disease
DX: I50.30 Unspecified diastolic (congestive) heart failure (principal); I48.19 Other persistent atrial fibrillation
CPT/HCPCS: 36415; 80048; 99212

== ENCOUNTER 2022-12-22 12:19 | Outpatient (AMB) | payer MEDICARE, SELFPAY ==
--- NOTE | 2022-12-22 12:37 | A.OFFVIS_ITS ---
Intake Vital Signs 12/22/22 12:38 Height 5 ft 2 in Weight 167 lb 8.821 oz BMI 30.6 BP 122/70 Blood Pressure Location Rt brachial Position Sitting Pulse 66 Intake Visit Reasons: 6 mth f/up Intake Note: 6 month follow-up feeling good Document Management Consultant Required: No Allergies baclofen Adverse Reaction (Unknown, Verified 06/17/21 13:48) CONFUSION, OUT OF IT oxycodone [From Percocet] Adverse Reaction (Unknown, Verified 06/17/21 13:48) NAUSEA Medication List - Last Reconciled 12/22/22 by Shaun Saleh MD alprazolam 1 mg PO TID amlodipine 5 mg PO DAILY apixaban (Eliquis) 5 mg PO BID 90 days atorvastatin 40 mg PO BEDTIME blood sugar diagnostic (Contour Next Test Strips) As directed 3 times a day 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 meter (Contour Next One Meter) As directed carbidopa-levodopa 25-100 mg 1 tab PO TID cholecalciferol (vitamin D3) 50 mcg PO DAILY 30 days cyanocobalamin (vitamin B-12) 1,000 mcg IM ferrous sulfate (Iron (ferrous sulfate)) 65 mg PO DAILY flash glucose scanning reader ([employer] Sanjeev 2 [place]) As directed flash glucose sensor ([employer] Sanjeev 2 Sensor kit) Once every 14 days furosemide (Lasix) 20 mg PO DAILY insulin degludec (Tresiba FlexTouch U-100 insulin) 56 units subcut DAILY lancets As directed levothyroxine 175 mcg PO DAILY liraglutide (Victoza 3-Kvng) 1.8 mg subcut DAILY losartan 100 mg PO DAILY metoprolol tartrate 25 mg PO BID paroxetine HCl 40 mg PO DAILY pen needle, diabetic 4x daily HPI HPI Comments History of Present Illness Details Bianca comes for follow-up. She has been doing well from cardiac perspective. Denies any worsening cardiac symptoms. Denies any worsening shortness of breath, orthopnea, PND, leg edema. No lightheadedness, syncope. Takes all her medications. Denies any prolonged palpitation irregular heartbeat. No bleeding issues or neurologic event. Creatinine in July was 1.57 which is slightly elevated compared to baseline. [facility] Medical History Persistent atrial fibrillation CKD (chronic kidney disease) CAD (coronary artery disease) (HFpEF) heart failure with preserved ejection fraction Vitamin D deficiency HLD (hyperlipidemia) T2DM (type 2 diabetes mellitus) Acute exacerbation of congestive heart failure Hypertension Parkinson disease Hypothyroid Diabetes Surgical History Hx of cardiac cath (~01/2017) Hx of carpal tunnel repair Hx of knee surgery Hx of hysterectomy Family History Father No problems noted. Mother T2DM (type 2 diabetes mellitus) Brother T2DM (type 2 diabetes mellitus) Social History Household Members: None Housing: Apartment Do you presently have visiting nurse or other home services: No Alcohol intake: current Alcohol intake frequency: holidays/special occasions only Patient Tobacco Use Status: Former Tobacco user service: No Current occupational status: retired Review of Systems Const Denies chills, Denies fatigue, Denies fever(s), Denies frequent falls, Denies we akness, Denies weight gain and Denies weight loss ENT Denies dizziness Card Denies chest pain, Denies leg edema, Denies lightheadedness, Denies palpit ations, Denies dyspnea, Denies dyspnea on exertion, Denies orthopnea and Denies other (loss of consciousness) Resp Denies cough, Denies dyspnea and Denies dyspnea on exertion GI Denies hematochezia and Denies change in stool character Musc Denies abnormal gait, Denies muscle weakness, Denies numbness, Denies radiating pain into limb and Denies tingling Neuro Denies abnormal gait, Denies dizziness, Denies frequent falls, Denies numbness, Denies tingling and Denies weakness Endo Denies fatigue and Denies palpitations Physical Exam Vital Signs: Last Vital Signs Pulse 66 12/22/22 12:38 BP 122/70 12/22/22 12:38 BMI result Body Mass Index 30.6 Const General: cooperative, comfortable, no acute distress, alert, awake and well groomed Nutritional Appearance: overweight Orientation/consciousness: patient oriented x3 Limitations: no limitations Neck Neck: Yes trachea midline, Yes supple and Yes no JVD Chest Chest palpation & inspection: normal inspection of the chest Resp Effort & Inspection: normal respiratory effort Auscultation: clear to auscultation bilaterally Cardio Jugular venous distension: no JVD Palpation: normal PMI Rate: regular rate Rhythm: abnormal rhythm irregularly irregular Heart sounds: S1 normal heart sound present, S2 normal heart sound present and Other heart sounds present (S4 present) GI Auscultation: normal bowel sounds Skin General skin exam: no rashes or lesions noted Neuro General: patient oriented x3 and no focal motor deficits Extrem General: Yes no clubbing, cyanosis or edema Psych Appearance: grossly normal Assessment & Plan Assessment & Plan (1) (HFpEF) heart failure with preserved ejection fraction: Code(s): I50.30 - Unspecified diastolic (congestive) heart failure Plan: Heart failure preserved ejection fraction, clinically euvolemic and well compensated on low-dose diuretic therapy. No hospitalizations recently. Continue management heart failure with low-dose diuretics. Daily weight monitoring avoidance of salt loading was discussed. She understands agrees. Additional diuretics as need be. Advised to call with any new symptoms. Follow-up echocardiogram in 6 months time. (2) Persistent atrial fibrillation: Code(s): I48.19 - Other persistent atrial fibrillation Plan: Chronic persistent atrial fibrillation, currently rate control. Has failed rhythm control approach. Continue current rate control approach. Quarterly renal function test should be pursued. Will check the same today. Continue full oral anticoagulation, currently on Eliquis 5 mg b.i.d.. Importance of oral anticoagulation therapy was discussed. She understands agrees. Follow up in the clinic in 6 months time, sooner p.r.n.. Thank you for allowing me to partake in her care Orders: Orders Basic Metabolic Panel Today I48.19 - Other persistent atrial fibrillation Medications: Changed From liraglutide (Victoza 3-Kvng) 1.2 mg (0.2 mL) subcut DAILY 30 days 9 mL 6RF To liraglutide (Victoza 3-Kvng) 1.8 mg subcut DAILY Coding Level of Care Code Est Pt Level 4 (31663) Diagnoses (HFpEF) heart failure with preserved ejection fraction I50.30 Persistent atrial fibrillation I48.19
[2022-12-22 12:38] VITALS: BP 122/70; PULSE 66; BMI 30.6
== END 2022-12-22 12:53 | disposition home or self-care (01) ==
PROVIDERS: PCP Internal Medicine; Referring Provider Internal Medicine; Visit Provider Internal Medicine Cardiovascular Disease
DX: I50.30 Unspecified diastolic (congestive) heart failure (principal); I48.19 Other persistent atrial fibrillation
CPT/HCPCS: 99214

== ENCOUNTER 2022-12-30 12:24 | Outpatient (AMB) | payer MEDICARE, SELFPAY ==
--- NOTE | 2022-12-30 13:03 | A.OFFVIS_ITS ---
Intake Intake Visit Reasons: DM/Confirmed Mobile Lab Technician Required: No Accompanied by: Self / Same As Patient Allergies baclofen Adverse Reaction (Unknown, Verified 06/17/21 13:48) CONFUSION, OUT OF IT oxycodone [From Percocet] Adverse Reaction (Unknown, Verified 06/17/21 13:48) NAUSEA HPI Comprehensive Diabetes Asmnt Most Recent Diabetes Results: Creatinine 1.29 mg/dL (0.5-1.4) 12/22/22 Blood Urea Nitrogen 27 mg/dL (9-16) H 12/22/22 Sodium 137 mmol/L (135-145) 12/22/22 Potassium 4.5 mmol/L (3.3-5.1) 12/22/22 Chloride 103 mmol/L (96-108) 12/22/22 Carbon Dioxide 26 mmol/L (22-29) 12/22/22 Calcium 10.0 mg/dL (8.4-10.2) 12/22/22 PFSH Medical History Persistent atrial fibrillation CKD (chronic kidney disease) CAD (coronary artery disease) (HFpEF) heart failure with preserved ejection fraction Vitamin D deficiency HLD (hyperlipidemia) T2DM (type 2 diabetes mellitus) Acute exacerbation of congestive heart failure Hypertension Parkinson disease Hypothyroid Diabetes Surgical History Hx of cardiac cath (~01/2017) Hx of carpal tunnel repair Hx of knee surgery Hx of hysterectomy Family History Father No problems noted. Mother T2DM (type 2 diabetes mellitus) Brother T2DM (type 2 diabetes mellitus) Social History Household Members: None Housing: Apartment Do you presently have visiting nurse or other home services: No Alcohol intake: current Alcohol intake frequency: holidays/special occasions only Patient Tobacco Use Status: Former Tobacco user service: No Current occupational status: retired Assessment & Plan Assessment & Plan (1) T2DM (type 2 diabetes mellitus): Code(s): E11.9 - Type 2 diabetes mellitus without complications Qualifiers: Diabetes mellitus termite exterminator helper insulin use: with termite exterminator helper use Diabetes mellitus complication status: with kidney complications Diabetes mellitus complication detail: with chronic kidney disease Plan: Personal Continuous Glucose Monitor: Patient has not been seen by special educator since May 2021. Patients CGM information reviewed Reviewed patient's sensor data: Hypoglycemia: ? 0 % Hyperglycemia:? 86% Time in Range:? 16% Average glucose for the last 2 weeks?258 mg/dL Spoke with patient's daughter regarding multiple alarms patient is getting overnight on Sanjeev 2 reader Increase patient's high alert to 370 mg/dL, turned off out of range alert. Patient's glucose control seems to have deteriorated since last seen in 2021. Instructed patient her daughter to set up appointment with patient's PCP who is managing her diabetes medications at this time to discuss alternative or adjustment to current diabetes medication Discussed with patient foods that increase glucose levels. Reviewed with patient trying keep snacks to 15 g of carb, meals between 30-45 g of carbohydrate Patient given carb list, and healthy plate handout Reviewed how to interpret trend arrows Patient able to insert sensor independently at home without issue.? Patient Instructions: Patient will follow-up with special educator as needed Coding Level of Care Code Est Pt Level 1 (51752) Diagnoses T2DM (type 2 diabetes mellitus) E11.9 Diabetes mellitus penitentiary insulin use: with termite exterminator helper use Diabetes mellitus complication status: with kidney complications Diabetes mellitus complication detail: with chronic kidney disease
== END 2022-12-30 13:13 | disposition home or self-care (01) ==
PROVIDERS: PCP Internal Medicine; Visit Provider Registered Nurse Diabetes Educator
DX: E11.9 Type 2 diabetes mellitus without complications (principal)

== ENCOUNTER → 2022-12-30 12:24 | Outpatient (BNVA) | payer MEDICARE, SELFPAY | PROVIDERS: PCP Internal Medicine; Visit Provider Registered Nurse Diabetes Educator | DX: E11.22 Type 2 diabetes mellitus with diabetic chronic kidney disease (principal); N18.9 Chronic kidney disease, unspecified; I13.0 Hypertensive heart and chronic kidney disease with heart failure and stage 1 through stage 4 chronic kidney disease, or unspecified chronic kidney disease; I50.30 Unspecified diastolic (congestive) heart failure; Z87.891 Personal history of nicotine dependence; Z79.4 Long term (current) use of insulin | CPT/HCPCS: 99211 ==

== ENCOUNTER 2023-04-30 22:06 | Inpatient (IN) | payer MEDICARE, SELFPAY ==
--- NOTE | ~2023-04-30 | CT_ITS ---
EXAMINATION: CT ABDOMEN AND PELVIS WITH CONTRAST CLINICAL INFORMATION: Abdominal pain. COMPARISON: 12/18/2015. TECHNIQUE: Multidetector volumetric images were obtained from the superior aspect of the liver through the pubic symphysis following administration 85 mL of Omnipaque 350 intravenous contrast. Sagittal and coronal reformatted images were obtained on the technologist's workstation. Oral contrast: No This CT examination was performed using dose optimization techniques as appropriate, variously including the following: *Automated exposure control *Adjustment of mA and/or kV according to patient size (this includes techniques or standardized protocols for targeted exams where dose is matched to indication/reason for exam; i.e. extremities or head) *Use of iterative reconstruction technique DLP: 618 mGy-cm FINDINGS: LUNG BASES: There is minimal scarring at the lung bases. LIVER, GALLBLADDER, AND BILIARY TREE: There is a geographic area obtained based attenuation extending through the right lobe the liver measuring up to 2cm in thickness. The gallbladder is unremarkable with no evidence of radiopaque gallstones, gallbladder wall thickening, or obvious pericholecystic inflammatory changes. PANCREAS: Atrophic. SPLEEN: Unremarkable. ADRENAL GLANDS: Unremarkable. KIDNEYS AND URETERS: The kidneys are normal in size, shape, and attenuation. No hydronephrosis, hydroureter, or calculi seen. No perinephric stranding. BLADDER: Unremarkable. GASTROINTESTINAL TRACT: The small and large bowel are unremarkable. There is a 1 cm structure extending from the expected location of the appendix inferiorly abutting adjacent small bowel loop. There appears to be associated thickening at the base of the cecum and minimal surrounding infiltrative change. ABDOMINAL WALL: There is a minimal umbilical hernia containing fat. LYMPH NODES: Normal. VASCULAR: There is atherosclerotic plaque of the abdominal aorta and proximal branches. PELVIC VISCERA: Unremarkable. OSSEOUS STRUCTURES: There is diffuse [id number] thoracolumbar disc degenerative change. CT/CT abdomen pelvis w IV con IMPRESSION: 1. There is a 1 cm structure extending from the expected location of the appendix inferiorly abutting an adjacent small bowel loop. There appears to be associated thickening at the base of the cecum and minimal surrounding infiltrative change. These findings are concerning for acute appendicitis. Correlation is needed as the likely appendix is not confidently from adjacent bowel. 2. Geographic area of low-attenuation in the right lobe of the liver may reflect focal fatty infiltration or vascular flow phenomenon. Fleischner guidelines were followed.
--- NOTE | ~2023-04-30 | XR_ITS ---
EXAMINATION: XR CHEST CLINICAL INFORMATION: Low oxygen saturation. COMPARISON: 03/19/2020. TECHNIQUE: 2 views of the chest were obtained. FINDINGS: The cardiomediastinal silhouette is stable. There is pulmonary vascular congestion with minimal perihilar increased markings. There is no focal lung consolidation or pleural effusion. The bony structures and soft tissues are unremarkable. XR/XR chest 2V IMPRESSION: Pulmonary vascular congestion with minimal perihilar increased markings. Consider developing fluid overload and/or congestive heart failure with early edema.
[2023-04-30 22:09] VITALS: BP 123/76; PULSE 83; RESP 18; TEMP 36.6; O2SAT 91; BMI 31.1
[2023-04-30 22:37] LABS: MANUAL DIFF FLAG NO
[2023-04-30 22:38] LABS: Basophils Absolute Auto 0.1 X10*3/uL (0.0-0.2); Basophils Percent Auto 0.4 % (0-2); Eosinophils Absolute Auto 0.1 X10*3/uL (0.0-0.4); Eosinophils Percent Auto 0.9 % (0-4); Hematocrit 51.9 % (37.0-47.0); Hemoglobin 17.6 g/dl (12.0-16.0); Imm Gran Abs Auto 0.04 X10*3/uL (0.00-0.03); Imm Gran Pct Auto 0.3 % (0.0-0.4); Lymphocytes Absolute Auto 1.2 X10*3/uL (1.2-4.9); Lymphocytes Percent Auto 9.4 % (20-40); Mean Corpuscular HGB Conc 33.9 g/dl (31.0-35.0); Mean Corpuscular Volume 91.5 fL (80.0-98.0); Monocytes Percent Auto 7.6 % (2-11); Neutrophils Absolute Auto 10.5 x10*3/uL (2.0-8.3); Neutrophils Percent Auto 81.4 % (45-73); Platelet Count 210 X10*3/uL (160-400); Red Blood Count 5.67 X10*6/uL (4.20-5.50); Red Cell Distribution Width 12.6 % (11.0-16.0); White Blood Count 12.9 X10*3/uL (4.8-10.8)
[2023-04-30 22:52] LABS: Alanine Aminotransferase 7 U/L (0-31); Albumin Level 4.5 g/dL (3.5-5.0); Alkaline Phosphatase 122 U/L (39-117); Anion Gap 15 (12-20); Aspartate Amino Transferase 27 U/L (5-31); Bilirubin Direct 0.4 mg/dL (0.0-0.5); Bilirubin Total 1.2 mg/dL (0.0-1.0); Blood Urea Nitrogen 20 mg/dL (9-16); Calcium 10.5 mg/dL (8.4-10.2); Carbon Dioxide 29 mmol/L (22-29); Chloride 102 mmol/L (96-108); Creatinine Clr Calc Pharmacy 37.4; Estimated Glomerular Filt Rate 43; Glucose Random 123 mg/dL (60-115); Lipase 20 U/L (8-78); Sodium 142 mmol/L (135-145); Total Protein 7.9 g/dL (6.5-8.0)
[2023-05-01] VITALS (11 sets, daily range): BP systolic 112–184; BP diastolic 56–109; PULSE 67–108; RESP 16–20; TEMP 36–36.8; O2SAT 91–100
[2023-05-01 01:29] LABS: Glucose, Whole Blood 179 mg/dL (60-115)
[2023-05-01 02:09] LABS: Appearance Urine Clear; Color Urine Yellow; Glucose Urine UA Negative (Negative); Leukocyte Esterase Urine Negative (Negative); Nitrite Urine Negative (Negative); PH 6.5 (5.0-9.0); Urine Blood Negative (Negative); Urine Ketones Trace mg/dL (Negative); Urine Protein Negative (Neg-Trace)
--- NOTE | 2023-05-01 02:30 | PC.NURSE ---
Patient's O2 Sat 88-91% RA, patient placed on supplemental O2 at 1 LM NC with improvement in O2 Sat noted 94-95%. ED provider notified.
--- NOTE | 2023-05-01 03:02 | ED.GENADULT ---
HPI - General Adult General Chief complaint: Abdominal Pain Stated complaint: Lower abd pain Time Seen by Provider: 05/01/23 02:54 History of Present Illness HPI narrative: The patient is a 78-year-old woman who says that around 4PM this afternoon she developed pain in her abdomen. It was generalized pain. At 1 point she thought it might have been more on the right side but she has not certain. At this point she thinks the pain was her lower abdomen. She has a history of hysterectomy but she does not think she has had any other abdominal surgeries. She has never had pain like this before. She has had nausea but no vomiting. No definite fevers. Related Data Home Medications Medication Instructions Recorded Confirmed alprazolam 1 mg tablet 1 mg PO TID 03/19/20 12/22/22 ferrous sulfate 325 mg (65 mg 65 mg PO DAILY 03/19/20 12/22/22 iron) tablet (Iron (ferrous sulfate)) losartan 100 mg tablet 100 mg PO DAILY 03/19/20 12/22/22 metoprolol tartrate 25 mg tablet 25 mg PO BID 03/19/20 12/22/22 cyanocobalamin (vitamin B-12) 1,000 mcg IM 03/29/20 12/22/22 1,000 mcg/mL injection solution lancets #100 ea 04/18/20 12/22/22 carbidopa 25 mg-levodopa 100 mg 1 tab PO TID 10/29/20 12/22/22 tablet blood sugar diagnostic (Contour 02/18/21 12/22/22 Next Test Strips) 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 meter (Contour Next 02/18/21 12/22/22 One Meter) furosemide 20 mg tablet (Lasix) 20 mg PO DAILY 08/14/21 12/22/22 amlodipine 5 mg tablet 5 mg PO DAILY 06/17/22 12/22/22 levothyroxine 175 mcg tablet 175 mcg PO DAILY 06/17/22 12/22/22 paroxetine HCl 40 mg tablet 40 mg PO DAILY 06/17/22 12/22/22 insulin degludec 100 unit/mL (3 56 unit subcut DAILY 12/22/22 12/22/22 mL) subcutaneous pen (Tresiba FlexTouch U-100 insulin) liraglutide 0.6 mg/0.1 mL (18 mg/3 1.8 mg subcut DAILY 12/22/22 12/22/22 mL) subcutaneous pen injector (Kingfish Labstoza 3-Kvng) Previous Rx's Medication Instructions Recorded pen needle, diabetic 31 gauge x #100 ea 04/28/2006/26 flash glucose scanning reader #1 ea 02/18/21 (FreeStyle Sanjeev 2 [place]) flash glucose sensor (FreeStyle #2 ea 02/18/21 Sanjeev 2 Sensor kit) cholecalciferol (vitamin D3) 50 50 mcg PO DAILY 30 days #90 caps 08/29/21 mcg (2,000 unit) capsule atorvastatin 40 mg tablet 40 mg PO BEDTIME #30 tabs 03/18/22 apixaban 5 mg tablet (Eliquis) 5 mg PO BID #180 tabs 03/31/23 Allergies Allergy/AdvReac Type Severity Reaction Status Date / Time baclofen AdvReac Unknown CONFUSION, Verified 04/30/23 22:12 OUT OF IT oxycodone [From Percocet] AdvReac Unknown NAUSEA Verified 04/30/23 22:12 [facility] Past Medical History Onset Date is defined in the Problem List Problems that require an onset date and time if occurred within 24 hrs of arrival to the ED Aortic Dissection and Rupture; Neurologic impairment; Cardiopulmonary Arrest; Endotracheal Intubation; Insertion or Replacement of Mechanical Circulatory Assist Device Medical History Persistent atrial fibrillation CKD (chronic kidney disease) CAD (coronary artery disease) (HFpEF) heart failure with preserved ejection fraction Vitamin D deficiency HLD (hyperlipidemia) T2DM (type 2 diabetes mellitus) Acute exacerbation of congestive heart failure Hypertension Parkinson disease Hypothyroid Diabetes Surgical History Hx of cardiac cath (~01/2017) Hx of carpal tunnel repair Hx of knee surgery Hx of hysterectomy Family History Family History Father No problems noted. Mother T2DM (type 2 diabetes mellitus) Brother T2DM (type 2 diabetes mellitus) Social History Social History Household Members: None Housing: Apartment Do you presently have visiting nurse or other home services: No Alcohol intake: current Alcohol intake frequency: holidays/special occasions only Alcohol type: wine Patient Tobacco Use Status: Former Tobacco user Smoked in Last 30 Days: No Use of substances other than those prescribed or required for medical reasons: No Advance Directives: No Advance Directives Information Provided: No service: No Current occupational status: retired Physical Exam ED Vital Signs: Vital Signs - 24 hr 04/30/23 22:09 05/01/23 00:41 05/01/23 03:11 Temperature 97.8 F 98.2 F Pulse Rate 83 86 79 Respiratory Rate 18 18 Blood Pressure 123/76 126/84 115/80 Pulse Oximetry 91 L 99 91 L Oxygen Delivery Method Room Air Room Air Oxygen Flow Rate 05/01/23 04:00 05/01/23 04:51 05/01/23 05:16 Temperature 98.1 F Pulse Rate 81 93 Respiratory Rate 16 20 Blood Pressure 113/72 Pulse Oximetry 96 95 Oxygen Delivery Method Nasal Cannula Nasal Cannula Oxygen Flow Rate 1 3 05/01/23 06:01 Temperature 97.5 F Pulse Rate 82 Respiratory Rate 19 Blood Pressure 134/71 Pulse Oximetry 96 Oxygen Delivery Method Nasal Cannula Oxygen Flow Rate 3 BMI result Body Mass Index 31.1 Const Other: The patient is a frail looking older woman who did not appear in overt pain or respiratory distress. She did not look toxic. HENMT Other: The face is symmetrical. ?Mucous membranes moist. Eyes Other: Pupils are round equal, conjunctivae are clear, extraocular movements intact Neck Other: No obvious JVD Resp Effort & Inspection: normal respiratory effort Auscultation: clear to auscultation bilaterally Cardio Other: The patient does not need regular rate and rhythm with no murmur. GI Other: The patient had diffuse abdominal tenderness but seemed most tender in the right lower quadrant where she had some slight guarding Skin Other: Pale and dry Neuro Other: Awake and alert, cranial nerves grossly intact, moving her extremities symmetrically and appropriately, grossly neurologically intact. Extrem Other: No pitting edema. No calf swelling or tenderness. No asymmetry. Medications Administered Discontinued Medications Generic Name Dose Route Start Last Admin Trade Name Freq PRN Reason Stop Dose Admin Albuterol/Ipratropium 3 ml 05/01/23 04:27 05/01/23 04:50 Albuterol/Iprat 2.5/0.5mg 3 Ml Ampul.Neb INHALE 05/01/23 04:28 3 ml ONCE ONE Administration Sodium Chloride 1,000 mls @ 999 mls/hr 05/01/23 03:15 05/01/23 04:40 Ns IV 05/01/23 04:15 Infused .Q1H1M ANIL Infusion Iohexol 85 ml 05/01/23 03:38 05/01/23 03:39 Iohexol 350 Mg/Ml 100 Ml Infus..Btl IV 05/01/23 03:39 85 ml ONCE ONE Administration Metoclopramide HCl 10 mg 05/01/23 03:03 05/01/23 03:55 Metoclopramide Hcl 10 Mg/2 Ml Vial IVPUSH 05/01/23 03:04 10 mg ONCE ONE Administration Medical Decision Making Medical Decision Making [facility] Narrative: The patient is a 78-year-old woman who presents with abdominal pain that started yesterday afternoon and was associated with vomiting. On exam she is primarily tender in the right lower quadrant and her exam is suggestive of possible appendicitis. A CT scan of the abdomen and pelvis was done that suggests that appendicitis might be present. No other acute surgical process or explanation for the patient's abdominal pain was apparent on CT scan. The patient's labs are largely unremarkable with a very mild white count elevation. I consulted with Dr. Voss of General surgery who came to the emergency room to see the patient and will be admitting the patient for further care. Additionally was noted that the patient's oxygen saturations were mildly low in the emergency department and she was given nasal cannula oxygen. She had presented with any significant short breath or chest pain. She was placed on nasal oxygen. Lab Data 04/30/23 22:32 04/30/23 22:32 Labs: Lab Results 04/30/23 05/01/23 05/01/23 Range/Units 22:32 01:24 01:54 WBC 12.9 H (4.8-10.8) X10*3/uL RBC 5.67 H (4.20-5.50) X10*6/uL Hgb 17.6 H (12.0-16.0) g/dl Hct 51.9 H (37.0-47.0) % MCV 91.5 (80.0-98.0) fL MCH 31.0 (27.0-33.0) pg MCHC 33.9 (31.0-35.0) g/dl RDW 12.6 (11.0-16.0) % Plt Count 210 (160-400) X10*3/uL MPV 11.0 (9.4-12.3) fL Immature Gran % (Auto) 0.3 (0.0-0.4) % Neut % (Auto) 81.4 H (45-73) % Lymph % (Auto) 9.4 L (20-40) % [place] % (Auto) 7.6 (2-11) % Eos % (Auto) 0.9 (0-4) % Baso % (Auto) 0.4 (0-2) % Lymph # (Auto) 1.2 (1.2-4.9) X10*3/uL [place] # (Auto) 1.0 (0.1-1.2) X10*3/uL Eos # (Auto) 0.1 (0.0-0.4) X10*3/uL Baso # (Auto) 0.1 (0.0-0.2) X10*3/uL Abs Immat Gran (auto) 0.04 H (0.00-0.03) X10*3/uL Absolute Neuts (auto) 10.5 H (2.0-8.3) x10*3/uL Absolute Nucleated RBC 0.000 (0.0-0.012) X10*3/uL Nucleated RBC % (auto) 0.0 (0.0-0.2) /100WBC Sodium 142 (135-145) mmol/L Potassium 4.0 (3.3-5.1) mmol/L Chloride 102 (96-108) mmol/L Carbon Dioxide 29 (22-29) mmol/L Anion Gap 15 (12-20) BUN 20 H (9-16) mg/dL Creatinine 1.21 (0.5-1.4) mg/dL Estim Creat Clear Calc 37.4 Estimated GFR 43 POC Glucose 179 H (60-115) mg/dL Random Glucose 123 H (60-115) mg/dL Calcium 10.5 H (8.4-10.2) mg/dL Total Bilirubin 1.2 H (0.0-1.0) mg/dL Direct Bilirubin 0.4 (0.0-0.5) mg/dL AST 27 (5-31) U/L ALT 7 (0-31) U/L Alkaline Phosphatase 122 H (39-117) U/L Troponin I High Sens 39.5 H (<3.5-17.0) ng/L C-Reactive Protein 0.39 (< or = 0.50) mg/dL B-Natriuretic Peptide (<100) pg/mL Total Protein 7.9 (6.5-8.0) g/dL Albumin 4.5 (3.5-5.0) g/dL Lipase 20 (8-78) U/L Urine Color Yellow Urine Appearance Clear Urine pH 6.5 (5.0-9.0) Ur Specific [place] 1.020 (1.005-1.025) Urine Protein Negative (Neg-Trace) mg/dL Urine Glucose (UA) Negative (Negative) mg/dL Urine Ketones Trace (Negative) mg/dL Urine Blood Negative (Negative) Urine Nitrite Negative (Negative) Ur Leukocyte Esterase Negative (Negative) COVID-19 (HERBERT) (Negative) COVID-19 Clin Com Influenza Type A (SHELBY) (Negative) Influenza Type B (SHELBY) (Negative) Influenza A & B Note 05/01/23 05/01/23 05/01/23 Range/Units 03:42 05:15 05:54 WBC (4.8-10.8) X10*3/uL RBC (4.20-5.50) X10*6/uL Hgb (12.0-16.0) g/dl Hct (37.0-47.0) % MCV (80.0-98.0) fL MCH (27.0-33.0) pg MCHC (31.0-35.0) g/dl RDW (11.0-16.0) % Plt Count (160-400) X10*3/uL MPV (9.4-12.3) fL Immature Gran % (Auto) (0.0-0.4) % Neut % (Auto) (45-73) % Lymph % (Auto) (20-40) % [place] % (Auto) (2-11) % Eos % (Auto) (0-4) % Baso % (Auto) (0-2) % Lymph # (Auto) (1.2-4.9) X10*3/uL [place] # (Auto) (0.1-1.2) X10*3/uL Eos # (Auto) (0.0-0.4) X10*3/uL Baso # (Auto) (0.0-0.2) X10*3/uL Abs Immat Gran (auto) (0.00-0.03) X10*3/uL Absolute Neuts (auto) (2.0-8.3) x10*3/uL Absolute Nucleated RBC (0.0-0.012) X10*3/uL Nucleated RBC % (auto) (0.0-0.2) /100WBC Sodium (135-145) mmol/L Potassium (3.3-5.1) mmol/L Chloride (96-108) mmol/L Carbon Dioxide (22-29) mmol/L Anion Gap (12-20) BUN (9-16) mg/dL Creatinine (0.5-1.4) mg/dL Estim Creat Clear Calc Estimated GFR POC Glucose (60-115) mg/dL Random Glucose (60-115) mg/dL Calcium (8.4-10.2) mg/dL Total Bilirubin (0.0-1.0) mg/dL Direct Bilirubin (0.0-0.5) mg/dL AST (5-31) U/L ALT (0-31) U/L Alkaline Phosphatase (39-117) U/L Troponin I High Sens 31.3 H (<3.5-17.0) ng/L C-Reactive Protein (< or = 0.50) mg/dL B-Natriuretic Peptide 190 H (<100) pg/mL Total Protein (6.5-8.0) g/dL Albumin (3.5-5.0) g/dL Lipase (8-78) U/L Urine Color Urine Appearance Urine pH (5.0-9.0) Ur Specific [place] (1.005-1.025) Urine Protein (Neg-Trace) mg/dL Urine Glucose (UA) (Negative) mg/dL Urine Ketones (Negative) mg/dL Urine Blood (Negative) Urine Nitrite (Negative) Ur Leukocyte Esterase (Negative) COVID-19 (HERBERT) Negative (Negative) COVID-19 Clin Com See Note Influenza Type A (SHELBY) Negative (Negative) Influenza Type B (SHELBY) Negative (Negative) Influenza A & B Note See Note Discharge Plan Discharge Prescriptions: No Action (DME) pen needle, diabetic 31 gauge x 3/16 needle See Rx Instructions subcut DIRECTED Qty: 100 11RF Rx Instructions: 4x daily cholecalciferol (vitamin D3) 50 mcg (2,000 unit) capsule 50 mcg PO DAILY 30 Days Qty: 90 3RF atorvastatin 40 mg tablet 40 mg PO BEDTIME Qty: 30 0RF Eliquis 5 mg tablet 5 mg PO BID Qty: 180 3RF alprazolam 1 mg Tablet 1 mg PO TID ferrous sulfate [Iron (ferrous sulfate)] 325 mg (65 mg iron) Tablet 65 mg PO DAILY losartan 100 mg Tablet 100 mg PO DAILY metoprolol tartrate 25 mg Tablet 25 mg PO BID carbidopa-levodopa 25-100 mg tablet 1 tab PO TID paroxetine HCl 40 mg tablet 40 mg PO DAILY (DME) lancets Misc See Rx Instructions .ROUTE TID Qty: 100 Rx Instructions: As directed cyanocobalamin (vitamin B-12) 1,000 mcg/mL solution 1,000 mcg IM (DME) Contour Next Test Strips Strip See Rx Instructions .Route Rx Instructions: As directed 3 times a day (DME) 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 meter [Contour Next One Meter] Misc See Rx Instructions .Route Rx Instructions: As directed (DME) FreeStyle Sanjeev 2 [place] Misc See Rx Instructions .ROUTE .MEDSUPPLY Qty: 1 0RF Rx Instructions: As directed (DME) FreeStyle Sanjeev 2 Sensor Kit See Rx Instructions .ROUTE .MEDSUPPLY Qty: 2 11RF Rx Instructions: Once every 14 days Tresiba FlexTouch U-100 100 unit/mL (3 mL) insulin pen 56 unit subcut DAILY furosemide [Lasix] 20 mg tablet 20 mg PO DAILY amlodipine 5 mg tablet 5 mg PO DAILY levothyroxine 175 mcg tablet 175 mcg PO DAILY Victoza 3-Kvng 0.6 mg/0.1 mL (18 mg/3 mL) pen injector 1.8 mg subcut DAILY
--- NOTE | 2023-05-01 03:20 | MHC.EDTECH ---
This tech took over care at this time,hourly rounds and vitals completed,patient's O2 was low between 88% to 91% RN is aware and at bedside, Covid and Flu swabs obtained and sent to lab. Call lombardo in reach and daughter at bedside
[2023-05-01] MEDS: 0.9 % Sodium Chloride 1,000 ML 999 ML IV (03:22)
[2023-05-01] MEDS: iohexoL 350 MG/ML 100 ML INFUS..BTL 85 ML IV (03:39)
[2023-05-01] MEDS: Metoclopramide HCl 10 MG/2 ML VIAL IVPUSH (03:55)
[2023-05-01 04:04] LABS: COVID-19 Test Negative (Negative); IDNOW Serial# 08D9AD1C; IDNOW Serial# 152EDE1D; Influenza A Negative (Negative); Influenza B2 Negative (Negative)
--- NOTE | 2023-05-01 04:27 | ECG_ITS ---
Test Reason : ABD PAIN Blood Pressure : / mmHG Vent. Rate : 081 BPM Atrial Rate : 000 BPM P-R Int : 000 ms QRS Dur : 074 ms QT Int : 412 ms P-R-T Axes : 000 016 039 degrees QTc Int : 478 ms Atrial fibrillation Abnormal ECG When compared with ECG of 19-MAR-2020 01:30, Atrial fibrillation has replaced Sinus rhythm ST no longer elevated in Inferior leads Referred By: Sherwin Rangel Electronically Signed By:VÍCTOR PHAM
[2023-05-01 04:43] LABS: C Reactive Protein 0.39 mg/dL (< or = 0.50)
--- NOTE | 2023-05-01 04:45 | MHC.EDTECH ---
Patient placed on the gambling monitor,EKG taken per order and signed by provider.
[2023-05-01 04:49] LABS: Troponin-I High Sensitivity 39.5 ng/L (<3.5-17.0)
[2023-05-01] MEDS: Albuterol/Iprat 2.5/0.5MG 3 ML AMPUL.NEB INHALE (04:50)
--- NOTE | 2023-05-01 05:16 | MHC.EDTECH ---
Repeat labs obtained and sent to lab, Hourly rounds and vitals completed,warm blankets giving and patient is resting comfortably at this time. Call lombardo in reach
--- NOTE | 2023-05-01 05:18 | PC.NURSE ---
Patient O2 Sat 89-90% on 1 LM NC, O2 liter flow increased to 3 LPM. Patient saturating 93-94% on 3 LPM NC.
--- NOTE | 2023-05-01 05:20 | PC.NURSE ---
ED provider informed that patient is on 3 LPM NC at present saturating 93-94%.
[2023-05-01 05:39] LABS: B Type Natriuretic Peptide 190 pg/mL (<100)
--- NOTE | 2023-05-01 06:01 | MHC.EDTECH ---
Patient ambulated to bathroom with a steady gait,hourly rounds and vitals completed,call lombardo in reach
[2023-05-01 06:20] LABS: Troponin-I High Sensitivity 31.3 ng/L (<3.5-17.0)
[2023-05-01 08:17] LABS: Glucose, Whole Blood 216 mg/dL (60-115)
--- NOTE | 2023-05-01 08:17 | PHA.MEDREC ---
Pharmacy Consult ? Medication Reconciliation Pharmacy has completed the medication reconciliation. Spoke to patient and family who knew meds and had a list
[2023-05-01] MEDS: Dextrose 5 % and 0.45 % NaCl 1,000 ML 100 ML IVCONT (08:18)
[2023-05-01] MEDS: Piperacillin Sodium/Tazobactam 3.375 GM in 0.9 % Sodium Chloride 50 ML IV ×3 (08:36→20:08)
--- NOTE | 2023-05-01 08:40 | PC.NURSE ---
assumed care of pt at 0700. pt a&o x4, pleasant, calm, and cooperative. 2nd IV placed. 22G IV placed to LAC, pt medicated per mar. blood glucose taken and charted in worklist. pt denies pain alex. pt NPO status and aware. pt offers no complaints alex, call lombardo within reach. plan of care ongoing.
[2023-05-01] MEDS: Acetaminophen 1,000 MG/100 ML PIGGYBACK 400 MG IV ×3 (09:46→19:21)
[2023-05-01 09:53] LABS: Glucose, Whole Blood 206 mg/dL (60-115)
--- NOTE | 2023-05-01 09:56 | PC.NURSE ---
Dr. Voss met with pt and daughter. upgraded from NPO to clear liquid diet. pt provided with diet gingerale and jello. Dr. Voss aware of pt glucose of 219 to 206. D/C'd D5 1/2NS. changing fluids to LR. pt aware of plan of care. pt ambulated to bathroom without O2. once back, found to have desated to 90-93% on room air. pt placed on 1L O2 via NC sating 95%.
[2023-05-01] MEDS: Lactated Ringers 1,000 ML 100 ML IVCONT ×2 (10:39→21:12)
--- NOTE | 2023-05-01 10:44 | PM.HPGS ---
History of Present Illness History of Present Illness Date of Service: 05/01/23 <Yadira Tamez PA-C - Last Filed: 05/01/23 10:58> 05/01/23 <Kade Voss MD - Last Filed: 05/01/23 13:44> Chief complaint: early appendicitis, Afib <Yadira Tamez PA-C - Last Filed: 05/01/23 10:58> Narrative: Bianca Hunt is a 78 year old female with PMH significant for a fib on eliquis, CKD, CAD, diabetes mellitus who presented to the ED with lower abd pain that began yesterday afternoon. The pain was sharp in nature and worse on the right side. This was associated with nausea without vomiting and diarrhea. The pain persisted and became severe prompting her to seek care in the ED. Work up in the ED included labs significant for leukocytosis of 12.9 and troponin of 39.5 down to 31.3, BNP 190. CT scan showed a dilated appendix with mild thickening of the base of the cecum suggestive of appendicitis. She reports some mild improvement in her abd pain. <Yadira Tamez PA-C - Last Filed: 05/01/23 10:58> Review of Systems Constitutional: Constitutional: Denies chills and Denies fever(s) <LULY Miller Last Filed: 05/01/23 10:58> ENT: Denies dizziness <Yadira Tamez PA-C - Last Filed: 05/01/23 10:58> Cardiovascular: Cardiovascular: Denies chest pain and Denies dyspnea <Yadira Tamez PA-C - Last Filed: 05/01/23 10:58> Respiratory: Respiratory: Denies dyspnea <LULY Miller Last Filed: 05/01/23 10:58> Gastrointestinal: Gastrointestinal: Reports as per HPI, Denies melena, Denies hematochezia, Reports diarrhea, Reports nausea and Denies vomiting <LULY Miller Last Filed: 05/01/23 10:58> Genitourinary: Genitourinary: Denies dysuria <LULY Miller Last Filed: 05/01/23 10:58> Integumentary/Breasts: Skin/Breast: Denies rash and Denies jaundice <LULY Miller Last Filed: 05/01/23 10:58> Neurologic: Denies dizziness <LULY Miller Last Filed: 05/01/23 10:58> [facility] Past Medical History Medical History: Medical History Persistent atrial fibrillation CKD (chronic kidney disease) CAD (coronary artery disease) (HFpEF) heart failure with preserved ejection fraction Vitamin D deficiency HLD (hyperlipidemia) T2DM (type 2 diabetes mellitus) Acute exacerbation of congestive heart failure Hypertension Parkinson disease Hypothyroid Diabetes <LULY Miller Last Filed: 05/01/23 10:58> Family History Family History: Family History Father No problems noted. Mother T2DM (type 2 diabetes mellitus) Brother T2DM (type 2 diabetes mellitus) <LULY Miller Last Filed: 05/01/23 10:58> Surgical History Surgical History: Surgical History Hx of cardiac cath (~01/2017) Hx of carpal tunnel repair Hx of knee surgery Hx of hysterectomy <LULY Miller Last Filed: 05/01/23 10:58> Social History Social History: Social History Household Members: None Housing: Apartment Do you presently have visiting nurse or other home services: No Alcohol intake: current Alcohol intake frequency: holidays/special occasions only Alcohol type: wine Patient Tobacco Use Status: Former Tobacco user Smoked in Last 30 Days: No Use of substances other than those prescribed or required for medical reasons: No Advance Directives: No Advance Directives Information Provided: No Nutrition Risks: No Nutritional Risk service: No Current occupational status: retired <LULY Miller Last Filed: 05/01/23 10:58> Meds Allergies/Adverse reactions: Allergies Allergy/AdvReac Type Severity Reaction Status Date / Time baclofen AdvReac Unknown CONFUSION, Verified 04/30/23 22:12 OUT OF IT oxycodone [From Percocet] AdvReac Unknown NAUSEA Verified 04/30/23 22:12 <Yadira Tamez PA-C - Last Filed: 05/01/23 10:58> Active Medications: Current Medications Alprazolam (Alprazolam 0.5 Mg Tablet) 1 mg PO TID [facility] Amlodipine Besylate (Amlodipine Besylate 5 Mg Tablet) 5 mg PO DAILY [facility]; Protocol Atorvastatin Calcium (Atorvastatin Calcium 40 Mg Tablet) 40 mg PO BEDTIME [facility] Carbidopa/Levodopa (Carbidopa/Levodopa 25/100 Tablet) 1 tab PO TID [facility] Dextrose (Dextrose 50 % 25 Gm/50 Ml Syringe) 25 gm IVPUSH Q15M PRN; Protocol PRN Reason: per Hypoglycemia Standing Ord. Docusate Sodium (Docusate Sodium 100 Mg Capsule) 100 mg PO DAILY PRN PRN Reason: Constipation Furosemide (Furosemide 20 Mg Tablet) 20 mg PO DAILY [facility]; Protocol Glucose (Glucose Gel 15 Gm Gel..Gram.) 15 gm PO Q15M PRN; Protocol PRN Reason: per Hypoglycemia Standing Ord. Hydromorphone HCl (Hydromorphone Hcl 1 Mg/Ml Syringe) 0.5 mg IVPUSH Q4H PRN; Protocol PRN Reason: Pain, Severe (Pain Scale 7-10) Acetaminophen (Ofirmev) 1,000 mg in 100 mls @ 400 mls/hr IV Q6H [facility] Stop: 05/02/23 01:44 Last Infusion: 05/01/23 10:01 Dose: Infused Piperacillin Sod/Tazobactam (Sod 3.375 gm/ Sodium Chloride) 50 mls @ 100 mls/hr IV Q6H [facility] Last Infusion: 05/01/23 09:23 Dose: Infused Lactated Ringer's (Lr) 1,000 mls @ 100 mls/hr IVCONT .Q10H [facility] Last Admin: 05/01/23 10:39 Dose: 100 mls/hr Insulin Human Lispro (Insulin Lispro 100 Unit/Ml 3 Ml Vial) 0 unit SUBCUT QIDACHS [facility]; Protocol Stop: 05/02/23 09:55 Levothyroxine Sodium (Levothyroxine Sodium 175 Mcg Tablet) 175 mcg PO DAILY@0600 [facility] Losartan Potassium (Losartan Potassium 50 Mg Tablet) 100 mg PO DAILY [facility]; Protocol Metoprolol Tartrate (Metoprolol Tartrate 25 Mg Tablet) 25 mg PO BID [facility]; Protocol Ondansetron HCl (Ondansetron Hcl 4 Mg/2 Ml Vial) 4 mg IVPUSH Q8H PRN PRN Reason: Nausea and Vomiting Oxycodone HCl (Oxycodone Hcl Immed Release 5 Mg Tablet) 5 mg PO Q6H PRN PRN Reason: Pain, Moderate(Pain Scale 4-6) Paroxetine HCl (Paroxetine Hcl 40 Mg Tablet) 40 mg PO DAILY [facility] Sodium Chloride (0.9 % Sodium Chloride Flush 3 Ml Syringe) 3 ml IVFLUSH QSHIFT [facility] Last Admin: 05/01/23 08:17 Dose: Not Given Vitamin D (Cholecalciferol (Vitamin D3) 25 Mcg Tablet) 50 mcg PO DAILY [facility] Zolpidem Tartrate (Zolpidem Tartrate 5 Mg Tablet) 5 mg PO BEDTIME PRN PRN Reason: Insomnia <Yadira Tamez PA-C - Last Filed: 05/01/23 10:58> Home medications: Home Medications Medication Instructions Recorded Confirmed Last Taken Type alprazolam 1 mg tablet 1 mg PO TID 03/19/20 05/01/23 04/30/23 History losartan 100 mg tablet 100 mg PO DAILY 03/19/20 05/01/23 04/30/23 History metoprolol tartrate 25 mg tablet 25 mg PO BID 03/19/20 05/01/23 04/30/23 History cyanocobalamin (vitamin B-12) 1,000 mcg IM Q28D 03/29/20 05/01/23 04/30/23 History 1,000 mcg/mL injection solution lancets #100 ea 04/18/20 05/01/23 04/30/23 History carbidopa 25 mg-levodopa 100 mg 1 tab PO TID 10/29/20 05/01/23 04/30/23 History tablet blood sugar diagnostic (Contour 02/18/21 05/01/23 04/30/23 History Next Test Strips) 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 meter (Contour Next 02/18/21 05/01/23 04/30/23 History One Meter) furosemide 20 mg tablet (Lasix) 20 mg PO DAILY 0505/01/23 04/30/23 History amlodipine 5 mg tablet 5 mg PO DAILY 06/17/22 05/01/23 04/30/23 History levothyroxine 175 mcg tablet 175 mcg PO DAILY 06/17/22 05/01/23 04/30/23 History paroxetine HCl 40 mg tablet 40 mg PO DAILY 06/17/22 05/01/23 04/30/23 History insulin degludec 100 unit/mL (3 56 unit subcut DAILY 12/22/22 05/01/23 04/30/23 History mL) subcutaneous pen (Tresiba FlexTouch U-100 insulin) liraglutide 0.6 mg/0.1 mL (18 mg/3 1.8 mg subcut DAILY 12/22/22 05/01/23 04/30/23 History mL) subcutaneous pen injector (Victoza 3-Kvng) ferrous fumarate 324 mg (106 mg 324 mg PO DAILY 05/01/23 05/01/23 04/30/23 History iron) tablet <LULY Miller Last Filed: 05/01/23 10:58> Physical Exam Vital Signs: Vital Signs: Last Vital Signs Temp 97.5 F 05/01/23 06:01 Pulse 82 05/01/23 06:01 Resp 19 05/01/23 06:01 BP 134/71 05/01/23 06:01 Pulse Ox 96 05/01/23 06:01 O2 Del Method Nasal Cannula 05/01/23 06:01 O2 Flow Rate 3 05/01/23 06:01 BMI result Body Mass Index 31.1 <LULY Miller Last Filed: 05/01/23 10:58> Const: General: comfortable, no acute distress and alert <LULY Mliler Last Filed: 05/01/23 10:58> Orientation/consciousness: patient oriented x3 <LULY Miller Last Filed: 05/01/23 10:58> Resp: Effort & Inspection: normal respiratory effort <LULY Miller Last Filed: 05/01/23 10:58> GI: Other: corpulent abdomen <LULY Miller Last Filed: 05/01/23 10:58> Inspection: No distended <Yadira Tamez PA-C Last Filed: 05/01/23 10:58> Palpation (GI): Soft to palpation, Tenderness to palpation present (GI) in the LLQ, in the RLQ (moderate), with rebound tenderness (RLQ) and Rovsing's sign positive, no guarding and not rigid <LULY Miller Last Filed: 05/01/23 10:58> Skin: General skin exam: no rashes or lesions noted <LULY Miller Last Filed: 05/01/23 10:58> Neuro: General: patient oriented x3 and moves all extremities <LULY Miller Filed: 05/01/23 10:58> Results Results Labs: Short CBC 04/30/23 Range/Units 22:32 WBC 12.9 H (4.8-10.8) X10*3/uL Hgb 17.6 H (12.0-16.0) g/dl Hct 51.9 H (37.0-47.0) % Plt Count 210 (160-400) X10*3/uL BMP 04/30/23 22:32 Sodium 142 Potassium 4.0 Chloride 102 Carbon Dioxide 29 BUN 20 H Creatinine 1.21 Calcium 10.5 H Liver Function 04/30/23 Range/Units 22:32 Total Bilirubin 1.2 H (0.0-1.0) mg/dL Direct Bilirubin 0.4 (0.0-0.5) mg/dL AST 27 (5-31) U/L ALT 7 (0-31) U/L Alkaline Phosphatase 122 H (39-117) U/L Albumin 4.5 (3.5-5.0) g/dL Urine 05/01/23 Range/Units 01:54 Urine Color Yellow Urine Appearance Clear Urine pH 6.5 (5.0-9.0) Ur Specific [place] 1.020 (1.005-1.025) Urine Protein Negative (Neg-Trace) mg/dL Urine Glucose (UA) Negative (Negative) mg/dL <LULY Miller Filed: 05/01/23 10:58> Abdomen CT scan report/results: report reviewed and image reviewed <Yadira Tamez PA-C - Last Filed: 05/01/23 10:58> Assessment and Plan (1) Acute appendicitis: Qualifiers: Acute appendicitis type: with localized peritonitis Appendicitis gangrene presence: without gangrene Appendicitis perforation presence: without perforation Appendicitis abscess presence: without abscess Qualified Code(s): K35.30 - Acute appendicitis with localized peritonitis, without perforation or gangrene <Yadira Tamez PA-C - Last Filed: 05/01/23 10:58> Status: Acute <Yadira Tamez PA-C - Last Filed: 05/01/23 10:58> 78 year old female with acute onset of lower abdominal pain and RLQ tenderness and positive rovsing sign with leukocytosis and CT scan showing dilated appendix with thickening suggestive of acute appendicitis. She has been admitted to the surgical service for further treatment of the acute appendicitis. Given her extensive medical history and anticoagulation with last dose yesterday, it was recommended to continue nonoperative management with IV abx with possible elective appendectomy down the line once inflammatory changes resolve if she continues to improve. She had been started on IV zosyn, IVF and clear liquids for now. Hospitalist consult was obtained for management of her medical comorbidities. Can continue to hold eliquis for now. <Yadira Tamez PA-C - Last Filed: 05/01/23 10:58> 78 year old female with acute onset of lower abdominal pain and RLQ tenderness and positive rovsing sign with leukocytosis and CT scan showing dilated appendix with thickening suggestive of acute appendicitis. She has been admitted to the surgical service for further treatment of the acute appendicitis. Given her extensive medical history and anticoagulation with last dose yesterday, it was recommended to continue nonoperative management with IV abx with possible elective appendectomy down the line once inflammatory changes resolve if she continues to improve. She had been started on IV zosyn, IVF and clear liquids for now. Hospitalist consult was obtained for management of her medical comorbidities. Can continue to hold eliquis for now. Patient re-examined this afternoon and feels improved with decreased abdominal pain. Discussed plan with patient and her daughter. Continue IV antibiotics and recheck CBC in a.m.. <Kade Voss MD - Last Filed: 05/01/23 13:44> Quality Stroke Does the patient have a stroke diagnosis?: No <Yadira Tamez PA-C - Last Filed: 05/01/23 10:58> VTE Prior VTE?: No <Yadira Tamez PA-C - Last Filed: 05/01/23 10:58> VTE Risk Level:: Surgical - moderate <Yadira Tamez PA-C - Last Filed: 05/01/23 10:58> VTE Device Contraindication: N/A - Device Ordered <Yadira Tamez PA-C - Last Filed: 05/01/23 10:58> VTE Drug Contraindication: Treatment Not Indicated <Yadira Tamez PA-C - Last Filed: 05/01/23 10:58> Procedures Date of Service Date of Service: 05/01/23 <Yadira Tamez PA-C - Last Filed: 05/01/23 10:58> 05/01/23 <Kade Voss MD - Last Filed: 05/01/23 13:44>
--- NOTE | 2023-05-01 11:51 | PC.NURSE ---
this RN resumed care of pt at this time. vss and up to date aside from being sinus tachy on the help desk support specialist and hypertensive. pt's BP documented on both upper extremities bilaterally. pt states she did not take BP medication this morning. admitting provider notified and aware at this time. no sob/wob noted. respirations even and unlabored. partner bedside for support. call lombardo placed within reach.
[2023-05-01 13:07] LABS: Glucose, Whole Blood 191 mg/dL (60-115)
[2023-05-01] MEDS: Insulin Lispro 100 UNIT/ML 3 ML VIAL SUBCUT ×2 (13:29→16:56)
--- NOTE | 2023-05-01 13:37 | PC.NURSE ---
medication administered per provider. pt currently being transported upstairs at this time.
--- NOTE | 2023-05-01 13:48 | MHC.CM.PN ---
pt lives alone has no servcies is indepedent and driving pt exects to dc with no servies
--- NOTE | 2023-05-01 14:08 | HO.PM.IMCN ---
History of Present Illness Data of Consult Service Date: 05/01/23 Primary Care Provider: Reji Molina MD [facility] Reason for consult: Medical management Patient is a 78-year-old female with a PMH significant persistent AFib on Eliquis, CAD (cath ~01/2017), HFpEF, CKD stage 3, HLD, insulin-dependent diabetes type 2, Parkinson's disease, and hypothyroidism who presented to the ED last night with RLQ abdominal pain and nausea without diarrhea and found to have likely early appendicitis on imaging. Pt admitted under general surgery for non-operative treatment appendicitis given her anticoagulation Eliquis with last dose yesterday. Has been started on IV Zosyn, IVF, and clear liquid. Hospitalist consult for medical management. Patient states she is overall feeling ?fine? without any current abdominal pain at rest. Has been tolerating clear liquid diet well and wonders when her diet can be advanced. Denies any other acute medical complaints. No nausea, vomiting. Denies chest pain/pressure, palpitations. No lower leg edema. Denies orthopnea. No fever, chills. Review of Systems Review of Systems: Denies abdominal pain at rest Patient has acute complaints this time [facility] Medical History Persistent atrial fibrillation CKD (chronic kidney disease) CAD (coronary artery disease) (HFpEF) heart failure with preserved ejection fraction Vitamin D deficiency HLD (hyperlipidemia) T2DM (type 2 diabetes mellitus) Acute exacerbation of congestive heart failure Hypertension Parkinson disease Hypothyroid Diabetes Family History Father No problems noted. Mother T2DM (type 2 diabetes mellitus) Brother T2DM (type 2 diabetes mellitus) Surgical History Hx of cardiac cath (~01/2017) Hx of carpal tunnel repair Hx of knee surgery Hx of hysterectomy Social History Household Members: None Housing: Apartment Do you presently have visiting nurse or other home services: No Alcohol intake: current Alcohol intake frequency: holidays/special occasions only Alcohol type: wine Patient Tobacco Use Status: Former Tobacco user Smoked in Last 30 Days: No Use of substances other than those prescribed or required for medical reasons: No Advance Directives: No Advance Directives Information Provided: No Nutrition Risks: No Nutritional Risk service: No Current occupational status: retired Meds Allergies Allergy/AdvReac Type Severity Reaction Status Date / Time baclofen AdvReac Unknown CONFUSION, Verified 04/30/23 22:12 OUT OF IT oxycodone [From Percocet] AdvReac Unknown NAUSEA Verified 04/30/23 22:12 Active Medications: Current Medications Alprazolam (Alprazolam 0.5 Mg Tablet) 1 mg PO TID [facility] Amlodipine Besylate (Amlodipine Besylate 5 Mg Tablet) 5 mg PO DAILY [facility]; Protocol Atorvastatin Calcium (Atorvastatin Calcium 40 Mg Tablet) 40 mg PO BEDTIME [facility] Carbidopa/Levodopa (Carbidopa/Levodopa 25/100 Tablet) 1 tab PO TID [facility] Dextrose (Dextrose 50 % 25 Gm/50 Ml Syringe) 25 gm IVPUSH Q15M PRN; Protocol PRN Reason: per Hypoglycemia Standing Ord. Docusate Sodium (Docusate Sodium 100 Mg Capsule) 100 mg PO DAILY PRN PRN Reason: Constipation Furosemide (Furosemide 20 Mg Tablet) 20 mg PO DAILY [facility]; Protocol Glucose (Glucose Gel 15 Gm Gel..Gram.) 15 gm PO Q15M PRN; Protocol PRN Reason: per Hypoglycemia Standing Ord. Hydromorphone HCl (Hydromorphone Hcl 1 Mg/Ml Syringe) 0.5 mg IVPUSH Q4H PRN; Protocol PRN Reason: Pain, Severe (Pain Scale 7-10) Acetaminophen (Ofirmev) 1,000 mg in 100 mls @ 400 mls/hr IV Q6H [facility] Stop: 05/02/23 01:44 Last Admin: 05/01/23 13:29 Dose: 400 mls/hr Piperacillin Sod/Tazobactam (Sod 3.375 gm/ Sodium Chloride) 50 mls @ 100 mls/hr IV Q6H [facility] Last Admin: 05/01/23 13:29 Dose: 100 mls/hr Lactated Ringer's (Lr) 1,000 mls @ 100 mls/hr IVCONT .Q10H [facility] Last Admin: 05/01/23 10:39 Dose: 100 mls/hr Insulin Human Lispro (Insulin Lispro 100 Unit/Ml 3 Ml Vial) 0 unit SUBCUT QIDACHS [facility]; Protocol Stop: 05/02/23 09:55 Last Admin: 05/01/23 13:29 Dose: 2 unit Levothyroxine Sodium (Levothyroxine Sodium 175 Mcg Tablet) 175 mcg PO DAILY@0600 [facility] Losartan Potassium (Losartan Potassium 50 Mg Tablet) 100 mg PO DAILY [facility]; Protocol Metoprolol Tartrate (Metoprolol Tartrate 25 Mg Tablet) 25 mg PO BID [facility]; Protocol Ondansetron HCl (Ondansetron Hcl 4 Mg/2 Ml Vial) 4 mg IVPUSH Q8H PRN PRN Reason: Nausea and Vomiting Oxycodone HCl (Oxycodone Hcl Immed Release 5 Mg Tablet) 5 mg PO Q6H PRN PRN Reason: Pain, Moderate(Pain Scale 4-6) Paroxetine HCl (Paroxetine Hcl 40 Mg Tablet) 40 mg PO DAILY [facility] Sodium Chloride (0.9 % Sodium Chloride Flush 3 Ml Syringe) 3 ml IVFLUSH QSHIFT [facility] Last Admin: 05/01/23 08:17 Dose: Not Given Vitamin D (Cholecalciferol (Vitamin D3) 25 Mcg Tablet) 50 mcg PO DAILY [facility] Zolpidem Tartrate (Zolpidem Tartrate 5 Mg Tablet) 5 mg PO BEDTIME PRN PRN Reason: Insomnia Home Medications Medication Instructions Recorded Confirmed Last Taken Type alprazolam 1 mg tablet 1 mg PO TID 03/19/20 05/01/23 04/30/23 History losartan 100 mg tablet 100 mg PO DAILY 03/19/20 05/01/23 04/30/23 History metoprolol tartrate 25 mg tablet 25 mg PO BID 03/19/20 05/01/23 04/30/23 History cyanocobalamin (vitamin B-12) 1,000 mcg IM Q28D 03/29/20 05/01/23 04/30/23 History 1,000 mcg/mL injection solution lancets #100 ea 04/18/20 05/01/23 04/30/23 History carbidopa 25 mg-levodopa 100 mg 1 tab PO TID 10/29/20 05/01/23 04/30/23 History tablet blood sugar diagnostic (Contour 02/18/21 05/01/23 04/30/23 History Next Test Strips) 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 meter (Contour Next 02/18/21 05/01/23 04/30/23 History One Meter) furosemide 20 mg tablet (Lasix) 20 mg PO DAILY 08/14/21 05/01/23 04/30/23 History amlodipine 5 mg tablet 5 mg PO DAILY 06/17/22 05/01/23 04/30/23 History levothyroxine 175 mcg tablet 175 mcg PO DAILY 06/17/22 05/01/23 04/30/23 History paroxetine HCl 40 mg tablet 40 mg PO DAILY 06/17/22 05/01/23 04/30/23 History insulin degludec 100 unit/mL (3 56 unit subcut DAILY 12/22/22 05/01/23 04/30/23 History mL) subcutaneous pen (Tresiba FlexTouch U-100 insulin) liraglutide 0.6 mg/0.1 mL (18 mg/3 1.8 mg subcut DAILY 12/22/22 05/01/23 04/30/23 History mL) subcutaneous pen injector (Victoza 3-Kvng) ferrous fumarate 324 mg (106 mg 324 mg PO DAILY 05/01/23 05/01/23 04/30/23 History iron) tablet Physical Exam Vital Signs and Narrative: Vital Signs: Last Vital Signs Temp 97.8 F 05/01/23 13:04 Pulse 72 05/01/23 13:04 Resp 18 05/01/23 13:04 BP 112/56 L 05/01/23 13:04 Pulse Ox 92 05/01/23 13:04 O2 Del Method Nasal Cannula 05/01/23 13:04 O2 Flow Rate 2 05/01/23 13:04 BMI result Body Mass Index 31.1 General: AOx3, no acute distress Resp: CTA bilaterally CVS: S1, S2, RRR GI: +BS, no distention, diffuse abd tenderness to palpation, worst in LRQ Skin: Warm, dry Neuro: Cranial nerves II-XII grossly intact bilaterally. Motor grossly intact bilaterally Extremities: No edema Psych: Appropriate affect Results Labs 04/30/23 22:32 04/30/23 22:32 Labs: Laboratory Results - last 24 hr 04/30/23 05/01/23 05/01/23 22:32 01:24 01:54 MCV 91.5 MCH 31.0 MCHC 33.9 RDW 12.6 Plt Count 210 MPV 11.0 Immature Gran % (Auto) 0.3 Neut % (Auto) 81.4 H Lymph % (Auto) 9.4 L [place] % (Auto) 7.6 Eos % (Auto) 0.9 Baso % (Auto) 0.4 Lymph # (Auto) 1.2 [place] # (Auto) 1.0 Eos # (Auto) 0.1 Baso # (Auto) 0.1 Abs Immat Gran (auto) 0.04 H Absolute Neuts (auto) 10.5 H Absolute Nucleated RBC 0.000 Nucleated RBC % (auto) 0.0 Anion Gap 15 Estim Creat Clear Calc 37.4 Estimated GFR 43 POC Glucose 179 H Random Glucose 123 H Calcium 10.5 H Total Bilirubin 1.2 H Direct Bilirubin 0.4 AST 27 ALT 7 Alkaline Phosphatase 122 H C-Reactive Protein 0.39 B-Natriuretic Peptide Total Protein 7.9 Albumin 4.5 Lipase 20 Urine Color Yellow Urine Appearance Clear Urine pH 6.5 Ur Specific [place] 1.020 Urine Protein Negative Urine Glucose (UA) Negative Urine Ketones Trace Urine Blood Negative Urine Nitrite Negative Ur Leukocyte Esterase Negative COVID-19 (HERBERT) COVID-19 Clin Com Influenza Type A (SHELBY) Influenza Type B (SHELBY) Influenza A & B Note 05/01/23 05/01/23 05/01/23 03:42 05:15 08:14 MCV MCH MCHC RDW Plt Count MPV Immature Gran % (Auto) Neut % (Auto) Lymph % (Auto) [place] % (Auto) Eos % (Auto) Baso % (Auto) Lymph # (Auto) [place] # (Auto) Eos # (Auto) Baso # (Auto) Abs Immat Gran (auto) Absolute Neuts (auto) Absolute Nucleated RBC Nucleated RBC % (auto) Anion Gap Estim Creat Clear Calc Estimated GFR POC Glucose 216 H Random Glucose Calcium Total Bilirubin Direct Bilirubin AST ALT Alkaline Phosphatase C-Reactive Protein B-Natriuretic Peptide 190 H Total Protein Albumin Lipase Urine Color Urine Appearance Urine pH Ur Specific [place] Urine Protein Urine Glucose (UA) Urine Ketones Urine Blood Urine Nitrite Ur Leukocyte Esterase COVID-19 (HERBERT) Negative COVID-19 [employer] Com See Note Influenza Type A (SHELBY) Negative Influenza Type B (SHELBY) Negative Influenza A & B Note See Note 05/01/23 05/01/23 09:41 13:00 MCV MCH MCHC RDW Plt Count MPV Immature Gran % (Auto) Neut % (Auto) Lymph % (Auto) [place] % (Auto) Eos % (Auto) Baso % (Auto) Lymph # (Auto) [place] # (Auto) Eos # (Auto) Baso # (Auto) Abs Immat Gran (auto) Absolute Neuts (auto) Absolute Nucleated RBC Nucleated RBC % (auto) Anion Gap Estim Creat Clear Calc Estimated GFR POC Glucose 206 H 191 H Random Glucose Calcium Total Bilirubin Direct Bilirubin AST ALT Alkaline Phosphatase C-Reactive Protein B-Natriuretic Peptide Total Protein Albumin Lipase Urine Color Urine Appearance Urine pH Ur Specific [place]ons Urine Protein Urine Glucose (UA) Urine Ketones Urine Blood Urine Nitrite Ur Leukocyte Esterase COVID-19 (HERBERT) COVID-19 Clin Com Influenza Type A (SHELBY) Influenza Type B (SHELBY) Influenza A & B Note Imaging Radiologist's Impressions: Impressions Abdomen/Pelvis CT 05/01/23 03:35 IMPRESSION: 1. There is a 1 cm structure extending from the expected location of the appendix inferiorly abutting an adjacent small bowel loop. There appears to be associated thickening at the base of the cecum and minimal surrounding infiltrative change. These findings are concerning for acute appendicitis. Correlation is needed as the likely appendix is not confidently from adjacent bowel. 2. Geographic area of low-attenuation in the right lobe of the liver may reflect focal fatty infiltration or vascular flow phenomenon. Fleischner guidelines were followed. Chest X-Ray 05/01/23 04:33 IMPRESSION: Pulmonary vascular congestion with minimal perihilar increased markings. Consider developing fluid overload and/or congestive heart failure with early edema. Assessment and Plan (1) Acute appendicitis: Qualifiers: Acute appendicitis type: with localized peritonitis Appendicitis gangrene presence: without gangrene Appendicitis perforation presence: without perforation Appendicitis abscess presence: without abscess Qualified Code(s): K35.30 - Acute appendicitis with localized peritonitis, without perforation or gangrene Status: Acute Plan Patient is a 78-year-old female with a PMH significant persistent AFib on Eliquis, CAD (cath ~01/2017), HFpEF, CKD stage 3, HLD, insulin-dependent diabetes type 2, Parkinson's disease, and hypothyroidism who presented to the ED last night with RLQ abdominal pain and nausea without diarrhea and found to have likely early appendicitis on imaging. Pt admitted under general surgery for non-operative treatment appendicitis given her anticoagulation Eliquis with last dose yesterday. Has been started on IV Zosyn, IVF, and clear liquid. Hospitalist consult for medical management. Acute appendicitis Plan as per General surgery Persistent AFib Hold Eliquis for need for possible surgical intervention Continue metoprolol Insulin-dependent diabetes type [address] on sliding scale insulin Will give half normal dose of Lantus as patient currently on clear liquid diet Increase Lantus to 75% once diet advances HFpEF Does not appear to be in acute exacerbation; patient euvolemic, no edema Continue home furosemide Hypothyroidism Continue levothyroxine CAD/HLD Continue statin Parkinson's disorder Continue HTN Hold anti-hypertensives for now, BP a little soft Resume as indicated Parkinson's disorder Continue carbidopa levodopa Mood disorder Continue home meds HLD Continue statin Thank you for allowing us to participate in the care of this patient. Will continue to follow for now. Attending: Dr. Clifton
[2023-05-01] MEDS: ALPRAZolam 0.5 MG TABLET 1 MG PO ×2 (14:26→20:28)
[2023-05-01] MEDS: Carbidopa/Levodopa 25/100 TABLET 1 TAB PO ×2 (14:26→20:28)
[2023-05-01 16:20] LABS: Glucose, Whole Blood 178 mg/dL (60-115)
[2023-05-01] MEDS: 0.9 % Sodium Chloride Flush 3 ML SYRINGE IVFLUSH (16:58)
[2023-05-01 20:17] LABS: Glucose, Whole Blood 123 mg/dL (60-115)
[2023-05-01] MEDS: Insulin Glargine,Hum.rec.anlog 100 UNIT/ML 10 ML VIAL 28 UNIT SUBCUT (20:28)
[2023-05-01] MEDS: Atorvastatin Calcium 40 MG TABLET PO (20:28)
[2023-05-01] MEDS: Metoprolol Tartrate 25 MG TABLET PO (20:28)
[2023-05-02] MEDS: Acetaminophen 1,000 MG/100 ML PIGGYBACK 400 MG IV (01:59)
[2023-05-02] MEDS: Piperacillin Sodium/Tazobactam 3.375 GM in 0.9 % Sodium Chloride 50 ML IV ×4 (02:19→19:35)
[2023-05-02 03:22] VITALS: BP 116/61; PULSE 63; RESP 17; TEMP 36.8; O2SAT 94
[2023-05-02] MEDS: Levothyroxine Sodium 175 MCG TABLET PO (05:53)
[2023-05-02 06:27] LABS: Alanine Aminotransferase 8 U/L (0-31); Albumin Level 3.7 g/dL (3.5-5.0); Alkaline Phosphatase 95 U/L (39-117); Anion Gap 15 (12-20); Aspartate Amino Transferase 24 U/L (5-31); Bilirubin Total 1.3 mg/dL (0.0-1.0); Blood Urea Nitrogen 11 mg/dL (9-16); Calcium 9.3 mg/dL (8.4-10.2); Carbon Dioxide 25 mmol/L (22-29); Chloride 108 mmol/L (96-108); Creatinine Clr Calc Pharmacy 54.6; Estimated Glomerular Filt Rate > 60; Glucose Random 78 mg/dL (60-115); Potassium 3.6 mmol/L (3.3-5.1); Sodium 144 mmol/L (135-145); Total Protein 6.5 g/dL (6.5-8.0)
[2023-05-02] MEDS: 0.9 % Sodium Chloride Flush 3 ML SYRINGE IVFLUSH (07:32)
[2023-05-02 07:36] LABS: Glucose, Whole Blood 87 mg/dL (60-115)
[2023-05-02] MEDS: Lactated Ringers 1,000 ML 100 ML IVCONT (07:37)
[2023-05-02 08:00] VITALS: BP 119/63; PULSE 72; RESP 16; TEMP 36.2; O2SAT 92
[2023-05-02] MEDS: Cholecalciferol (Vitamin D3) 25 MCG TABLET 50 MCG PO (08:24)
[2023-05-02] MEDS: Carbidopa/Levodopa 25/100 TABLET 1 TAB PO ×3 (08:24→20:30)
[2023-05-02] MEDS: ALPRAZolam 0.5 MG TABLET 1 MG PO ×3 (08:25→21:35)
[2023-05-02] MEDS: amLODIPine Besylate 5 MG TABLET PO (08:25)
[2023-05-02] MEDS: Metoprolol Tartrate 25 MG TABLET PO ×2 (08:25→20:30)
[2023-05-02] MEDS: PARoxetine HCL 40 MG TABLET PO (08:25)
[2023-05-02] MEDS: Losartan Potassium 50 MG TABLET 100 MG PO (08:25)
[2023-05-02] MEDS: Furosemide 20 MG TABLET PO (08:25)
--- NOTE | 2023-05-02 09:12 | P.PNGS_ITS ---
Subjective Subjective Date of Service: 05/02/23 Interval history: feels much better RLQ pain minimal tolerating clears Physical Exam 2 Vital Signs: Vital Signs: Last Vital Signs Temp 97.2 F 05/02/23 08:00 Pulse 72 05/02/23 08:00 Resp 16 05/02/23 08:00 BP 119/63 05/02/23 08:00 Pulse Ox 92 05/02/23 08:00 O2 Del Method Room Air 05/02/23 08:00 O2 Flow Rate 2 05/01/23 15:14 BMI result Body Mass Index 31.1 Const: Other: looks well General: comfortable and no acute distress Resp: Effort & Inspection: normal respiratory effort Cardio: Rate: regular rate GI: Other: mild tenderness RLQ Palpation (GI): Soft to palpation, not firm and no guarding Objective Data Active Medications Alprazolam (Alprazolam 0.5 Mg Tablet) 1 mg PO TID [facility] Last Admin: 05/02/23 08:25 Dose: 1 mg Documented By: RIO Amlodipine Besylate (Amlodipine Besylate 5 Mg Tablet) 5 mg PO DAILY [facility]; Protocol Last Admin: 05/02/23 08:25 Dose: 5 mg Documented By: RIO Atorvastatin Calcium (Atorvastatin Calcium 40 Mg Tablet) 40 mg PO BEDTIME [facility] Last Admin: 05/01/23 20:28 Dose: 40 mg Documented By: ILDA Carbidopa/Levodopa (Carbidopa/Levodopa 25/100 Tablet) 1 tab PO TID [facility] Last Admin: 05/02/23 08:24 Dose: 1 tab Documented By: RIO Dextrose (Dextrose 50 % 25 Gm/50 Ml Syringe) 25 gm IVPUSH Q15M PRN; Protocol PRN Reason: per Hypoglycemia Standing Ord. Docusate Sodium (Docusate Sodium 100 Mg Capsule) 100 mg PO DAILY PRN PRN Reason: Constipation Furosemide (Furosemide 20 Mg Tablet) 20 mg PO DAILY [facility]; Protocol Last Admin: 05/02/23 08:25 Dose: 20 mg Documented By: RIO Glucose (Glucose Gel 15 Gm Gel..Gram.) 15 gm PO Q15M PRN; Protocol PRN Reason: per Hypoglycemia Standing Ord. Hydromorphone HCl (Hydromorphone Hcl 1 Mg/Ml Syringe) 0.5 mg IVPUSH Q4H PRN; Protocol PRN Reason: Pain, Severe (Pain Scale 7-10) Piperacillin Sod/Tazobactam (Sod 3.375 gm/ Sodium Chloride) 50 mls @ 100 mls/hr IV Q6H [facility] Last Infusion: 05/02/23 08:30 Dose: Infused Documented By: RIO Lactated Ringer's (Lr) 1,000 mls @ 100 mls/hr IVCONT .Q10H [facility] Last Admin: 05/02/23 07:37 Dose: 100 mls/hr Documented By: RIO Insulin Glargine (Insulin Glargine,Hum.Rec.Anlog 100 Unit/Ml 10 Ml Vial) 28 unit SUBCUT BEDTIME [facility] Last Admin: 05/01/23 20:28 Dose: 28 unit Documented By: ILDA Insulin Human Lispro (Insulin Lispro 100 Unit/Ml 3 Ml Vial) 0 unit SUBCUT QIDACHS [facility]; Protocol Stop: 05/02/23 09:55 Last Admin: 05/02/23 07:39 Dose: Not Given Documented By: RIO Non-Admin Reason: No Insulin Coverage Levothyroxine Sodium (Levothyroxine Sodium 175 Mcg Tablet) 175 mcg PO DAILY@0600 [facility] Last Admin: 05/02/23 05:53 Dose: 175 mcg Documented By: ILDA Losartan Potassium (Losartan Potassium 50 Mg Tablet) 100 mg PO DAILY [facility]; Protocol Last Admin: 05/02/23 08:25 Dose: 100 mg Documented By: RIO Metoprolol Tartrate (Metoprolol Tartrate 25 Mg Tablet) 25 mg PO BID [facility]; Protocol Last Admin: 05/02/23 08:25 Dose: 25 mg Documented By: RIO Ondansetron HCl (Ondansetron Hcl 4 Mg/2 Ml Vial) 4 mg IVPUSH Q8H PRN PRN Reason: Nausea and Vomiting Oxycodone HCl (Oxycodone Hcl Immed Release 5 Mg Tablet) 5 mg PO Q6H PRN PRN Reason: Pain, Moderate(Pain Scale 4-6) Paroxetine HCl (Paroxetine Hcl 40 Mg Tablet) 40 mg PO DAILY [facility] Last Admin: 05/02/23 08:25 Dose: 40 mg Documented By: RIO Sodium Chloride (0.9 % Sodium Chloride Flush 3 Ml Syringe) 3 ml IVFLUSH QSHIFT [facility] Last Admin: 05/02/23 07:32 Dose: 3 ml Documented By: RIO Vitamin D (Cholecalciferol (Vitamin D3) 25 Mcg Tablet) 50 mcg PO DAILY [facility] Last Admin: 05/02/23 08:24 Dose: 50 mcg Documented By: RIO Zolpidem Tartrate (Zolpidem Tartrate 5 Mg Tablet) 5 mg PO BEDTIME PRN PRN Reason: Insomnia Labs 04/30/23 22:32 05/02/23 05:52 Labs: Laboratory Results - last 24 hr 05/01/23 05/01/23 05/01/23 09:41 13:00 16:13 Hold Purple Top Anion Gap Estim Creat Clear Calc Estimated GFR POC Glucose 206 H 191 H 178 H Random Glucose Calcium Total Bilirubin AST ALT Alkaline Phosphatase Total Protein Albumin 05/01/23 05/02/23 05/02/23 20:11 05:52 07:24 Hold Purple Top SEE NOTE Anion Gap 15 Estim Creat Clear Calc 54.6 Estimated GFR > 60 POC Glucose 123 H 87 Random Glucose 78 Calcium 9.3 D Total Bilirubin 1.3 H AST 24 ALT 8 Alkaline Phosphatase 95 Total Protein 6.5 Albumin 3.7 Procedures Date of Service Date of Service: 05/02/23 Progress Note: A&P Assessment and plan (1) Acute appendicitis: Status: Acute Assessment and Plan: minimal changes seen on CT no fecalith much improved no fever ok to try regular food today continue abx Time Spent With Patient Time: Total time managing care of this patient today ____ minutes. Quality Stroke Does the patient have a stroke diagnosis?: No VTE Prior VTE?: No VTE Risk Level:: Surgical - moderate VTE Device Contraindication: N/A - Device Ordered VTE Drug Contraindication: Treatment Not Indicated
--- NOTE | 2023-05-02 10:26 | HO.PM.IMPN ---
Subjective Subjective Date of Service: 05/02/23 Physical Exam Vital Signs: Vital Signs: Last Vital Signs Temp 97.2 F 05/02/23 08:00 Pulse 72 05/02/23 08:00 Resp 16 05/02/23 08:00 BP 119/63 05/02/23 08:00 Pulse Ox 92 05/02/23 08:00 O2 Del Method Room Air 05/02/23 08:00 O2 Flow Rate 2 05/01/23 15:14 BMI result Body Mass Index 31.1 Objective Data Active Medications Alprazolam (Alprazolam 0.5 Mg Tablet) 1 mg PO TID [facility] Last Admin: 05/02/23 08:25 Dose: 1 mg Documented By: RIO Amlodipine Besylate (Amlodipine Besylate 5 Mg Tablet) 5 mg PO DAILY [facility]; Protocol Last Admin: 05/02/23 08:25 Dose: 5 mg Documented By: RIO Atorvastatin Calcium (Atorvastatin Calcium 40 Mg Tablet) 40 mg PO BEDTIME [facility] Last Admin: 05/01/23 20:28 Dose: 40 mg Documented By: ILDA Carbidopa/Levodopa (Carbidopa/Levodopa 25/100 Tablet) 1 tab PO TID [facility] Last Admin: 05/02/23 08:24 Dose: 1 tab Documented By: RIO Dextrose (Dextrose 50 % 25 Gm/50 Ml Syringe) 25 gm IVPUSH Q15M PRN; Protocol PRN Reason: per Hypoglycemia Standing Ord. Docusate Sodium (Docusate Sodium 100 Mg Capsule) 100 mg PO DAILY PRN PRN Reason: Constipation Furosemide (Furosemide 20 Mg Tablet) 20 mg PO DAILY [facility]; Protocol Last Admin: 05/02/23 08:25 Dose: 20 mg Documented By: RIO Glucose (Glucose Gel 15 Gm Gel..Gram.) 15 gm PO Q15M PRN; Protocol PRN Reason: per Hypoglycemia Standing Ord. Hydromorphone HCl (Hydromorphone Hcl 1 Mg/Ml Syringe) 0.5 mg IVPUSH Q4H PRN; Protocol PRN Reason: Pain, Severe (Pain Scale 7-10) Piperacillin Sod/Tazobactam (Sod 3.375 gm/ Sodium Chloride) 50 mls @ 100 mls/hr IV Q6H [facility] Last Infusion: 05/02/23 08:30 Dose: Infused Documented By: RIO Lactated Ringer's (Lr) 1,000 mls @ 100 mls/hr IVCONT .Q10H [facility] Last Admin: 05/02/23 07:37 Dose: 100 mls/hr Documented By: RIO Insulin Glargine (Insulin Glargine,Hum.Rec.Anlog 100 Unit/Ml 10 Ml Vial) 28 unit SUBCUT BEDTIME [facility] Last Admin: 05/01/23 20:28 Dose: 28 unit Documented By: ILDA Levothyroxine Sodium (Levothyroxine Sodium 175 Mcg Tablet) 175 mcg PO DAILY@0600 [facility] Last Admin: 05/02/23 05:53 Dose: 175 mcg Documented By: ILDA Losartan Potassium (Losartan Potassium 50 Mg Tablet) 100 mg PO DAILY [facility]; Protocol Last Admin: 05/02/23 08:25 Dose: 100 mg Documented By: RIO Metoprolol Tartrate (Metoprolol Tartrate 25 Mg Tablet) 25 mg PO BID [facility]; Protocol Last Admin: 05/02/23 08:25 Dose: 25 mg Documented By: RIO Ondansetron HCl (Ondansetron Hcl 4 Mg/2 Ml Vial) 4 mg IVPUSH Q8H PRN PRN Reason: Nausea and Vomiting Oxycodone HCl (Oxycodone Hcl Immed Release 5 Mg Tablet) 5 mg PO Q6H PRN PRN Reason: Pain, Moderate(Pain Scale 4-6) Paroxetine HCl (Paroxetine Hcl 40 Mg Tablet) 40 mg PO DAILY [facility] Last Admin: 05/02/23 08:25 Dose: 40 mg Documented By: RIO Sodium Chloride (0.9 % Sodium Chloride Flush 3 Ml Syringe) 3 ml IVFLUSH QSHIFT [facility] Last Admin: 05/02/23 07:32 Dose: 3 ml Documented By: RIO Vitamin D (Cholecalciferol (Vitamin D3) 25 Mcg Tablet) 50 mcg PO DAILY [facility] Last Admin: 05/02/23 08:24 Dose: 50 mcg Documented By: RIO Zolpidem Tartrate (Zolpidem Tartrate 5 Mg Tablet) 5 mg PO BEDTIME PRN PRN Reason: Insomnia Labs 04/30/23 22:32 05/02/23 05:52 Labs: Laboratory Results - last 24 hr 05/01/23 05/01/2305/01/24 13:00 16:13 20:11 Hold Purple Top Anion Gap Estim Creat Clear Calc Estimated GFR POC Glucose 191 H 178 H 123 H Random Glucose Calcium Total Bilirubin AST ALT Alkaline Phosphatase Total Protein Albumin 05/02/23 05/02/23 05:52 07:24 Hold Purple Top SEE NOTE Anion Gap 15 Estim Creat Clear Calc 54.6 Estimated GFR > 60 POC Glucose 87 Random Glucose 78 Calcium 9.3 D Total Bilirubin 1.3 H AST 24 ALT 8 Alkaline Phosphatase 95 Total Protein 6.5 Albumin 3.7 Quality Stroke Does the patient have a stroke diagnosis?: No VTE Prior VTE?: No VTE Risk Level:: Surgical - moderate VTE Device Contraindication: N/A - Device Ordered VTE Drug Contraindication: Treatment Not Indicated
[2023-05-02 11:15] LABS: Glucose, Whole Blood 198 mg/dL (60-115)
[2023-05-02] MEDS: Insulin Lispro 100 UNIT/ML 3 ML VIAL SUBCUT ×3 (11:47→20:30)
[2023-05-02 12:10] LABS: Hematocrit 47.6 % (37.0-47.0); Hemoglobin 15.6 g/dl (12.0-16.0); Mean Corpuscular HGB Conc 32.8 g/dl (31.0-35.0); Mean Corpuscular Hemoglobin 30.8 pg (27.0-33.0); Mean Corpuscular Volume 93.9 fL (80.0-98.0); Mean Platelet Volume 11.1 fL (9.4-12.3); Platelet Count 185 X10*3/uL (160-400); Red Blood Count 5.07 X10*6/uL (4.20-5.50); Red Cell Distribution Width 12.9 % (11.0-16.0); White Blood Count 5.9 X10*3/uL (4.8-10.8)
[2023-05-02 16:46] LABS: Glucose, Whole Blood 242 mg/dL (60-115)
[2023-05-02 19:25] VITALS: BP 118/60; PULSE 78; RESP 18; TEMP 36.6; O2SAT 92
[2023-05-02 20:23] LABS: Glucose, Whole Blood 281 mg/dL (60-115)
[2023-05-02] MEDS: Atorvastatin Calcium 40 MG TABLET PO (20:30)
[2023-05-02] MEDS: Insulin Glargine,Hum.rec.anlog 100 UNIT/ML 10 ML VIAL 28 UNIT SUBCUT (20:30)
[2023-05-03] MEDS: 0.9 % Sodium Chloride Flush 3 ML SYRINGE IVFLUSH ×2 (00:32→08:16)
[2023-05-03] MEDS: Piperacillin Sodium/Tazobactam 3.375 GM in 0.9 % Sodium Chloride 50 ML IV ×2 (01:50→08:15)
[2023-05-03 02:51] VITALS: BP 119/69; PULSE 73; RESP 16; TEMP 36.4; O2SAT 92
[2023-05-03] MEDS: Levothyroxine Sodium 175 MCG TABLET PO (05:37)
[2023-05-03] MEDS: Acetaminophen 325 MG TABLET 650 MG PO (05:37)
[2023-05-03 07:33] LABS: Glucose, Whole Blood 91 mg/dL (60-115)
[2023-05-03 07:40] VITALS: BP 121/69; PULSE 64; RESP 16; TEMP 36.4; O2SAT 95
[2023-05-03] MEDS: Metoprolol Tartrate 25 MG TABLET PO (08:15)
[2023-05-03] MEDS: Losartan Potassium 50 MG TABLET 100 MG PO (08:15)
[2023-05-03] MEDS: Furosemide 20 MG TABLET PO (08:15)
[2023-05-03] MEDS: ALPRAZolam 0.5 MG TABLET 1 MG PO (08:15)
[2023-05-03] MEDS: Cholecalciferol (Vitamin D3) 25 MCG TABLET 50 MCG PO (08:15)
[2023-05-03] MEDS: Carbidopa/Levodopa 25/100 TABLET 1 TAB PO (08:15)
[2023-05-03] MEDS: amLODIPine Besylate 5 MG TABLET PO (08:16)
[2023-05-03] MEDS: PARoxetine HCL 40 MG TABLET PO (08:16)
--- NOTE | 2023-05-03 09:50 | P.PNGS_ITS ---
Subjective Subjective Date of Service: 05/03/23 Interval history: has had loose stools tolerating diet well describes knee pain, ear pain, feeling cold last night no fever she looks well Physical Exam 2 Vital Signs: Vital Signs: Last Vital Signs Temp 97.5 F 05/03/23 07:40 Pulse 64 05/03/23 07:40 Resp 16 05/03/23 07:40 BP 121/69 05/03/23 07:40 Pulse Ox 95 05/03/23 07:40 O2 Del Method Room Air 05/03/23 07:40 O2 Flow Rate 2 05/01/23 15:14 BMI result Body Mass Index 31.1 Const: General: comfortable and no acute distress Resp: Effort & Inspection: normal respiratory effort Cardio: Rate: regular rate GI: Palpation (GI): Soft to palpation, not firm and nontender Objective Data Active Medications Acetaminophen (Acetaminophen 325 Mg Tablet) 650 mg PO Q4H PRN PRN Reason: Pain, Mild (Pain Scale 1-3) Last Admin: 05/03/23 05:37 Dose: 650 mg Documented By: ILDA Alprazolam (Alprazolam 0.5 Mg Tablet) 1 mg PO TID [facility] Last Admin: 05/03/23 08:15 Dose: 1 mg Documented By: RIO Amlodipine Besylate (Amlodipine Besylate 5 Mg Tablet) 5 mg PO DAILY [facility]; Protocol Last Admin: 05/03/23 08:16 Dose: 5 mg Documented By: RIO Atorvastatin Calcium (Atorvastatin Calcium 40 Mg Tablet) 40 mg PO BEDTIME [facility] Last Admin: 05/02/23 20:30 Dose: 40 mg Documented By: ILDA Carbidopa/Levodopa (Carbidopa/Levodopa 25/100 Tablet) 1 tab PO TID [facility] Last Admin: 05/03/23 08:15 Dose: 1 tab Documented By: RIO Dextrose (Dextrose 50 % 25 Gm/50 Ml Syringe) 25 gm IVPUSH Q15M PRN; Protocol PRN Reason: per Hypoglycemia Standing Ord. Dextrose (Dextrose 50 % 25 Gm/50 Ml Syringe) 25 gm IVPUSH Q15M PRN; Protocol PRN Reason: per Hypoglycemia Standing Ord. Docusate Sodium (Docusate Sodium 100 Mg Capsule) 100 mg PO DAILY PRN PRN Reason: Constipation Furosemide (Furosemide 20 Mg Tablet) 20 mg PO DAILY [facility]; Protocol Last Admin: 05/03/23 08:15 Dose: 20 mg Documented By: RIO Glucose (Glucose Gel 15 Gm Gel..Gram.) 15 gm PO Q15M PRN; Protocol PRN Reason: per Hypoglycemia Standing Ord. Glucose (Glucose Gel 15 Gm Gel..Gram.) 15 gm PO Q15M PRN; Protocol PRN Reason: per Hypoglycemia Standing Ord. Hydromorphone HCl (Hydromorphone Hcl 1 Mg/Ml Syringe) 0.5 mg IVPUSH Q4H PRN; Protocol PRN Reason: Pain, Severe (Pain Scale 7-10) Piperacillin Sod/Tazobactam (Sod 3.375 gm/ Sodium Chloride) 50 mls @ 100 mls/hr IV Q6H [facility] Last Infusion: 05/03/23 08:48 Dose: Infused Documented By: RIO Lactated Ringer's (Lr) 1,000 mls @ 100 mls/hr IVCONT .Q10H [facility] Last Admin: 05/03/23 03:17 Dose: Not Given Documented By: ILDA Non-Admin Reason: discontinued by Insulin Glargine (Insulin Glargine,Hum.Rec.Anlog 100 Unit/Ml 10 Ml Vial) 28 unit SUBCUT BEDTIME [facility] Last Admin: 05/02/23 20:30 Dose: 28 unit Documented By: ILDA Insulin Human Lispro (Insulin Lispro 100 Unit/Ml 3 Ml Vial) 0 unit SUBCUT QIDACHS [facility]; Protocol Last Admin: 05/03/23 07:37 Dose: Not Given Documented By: RIO Non-Admin Reason: No Insulin Coverage Levothyroxine Sodium (Levothyroxine Sodium 175 Mcg Tablet) 175 mcg PO DAILY@0600 [facility] Last Admin: 05/03/23 05:37 Dose: 175 mcg Documented By: ILDA Losartan Potassium (Losartan Potassium 50 Mg Tablet) 100 mg PO DAILY [facility]; Protocol Last Admin: 05/03/23 08:15 Dose: 100 mg Documented By: RIO Metoprolol Tartrate (Metoprolol Tartrate 25 Mg Tablet) 25 mg PO BID [facility]; Protocol Last Admin: 05/03/23 08:15 Dose: 25 mg Documented By: RIO Ondansetron HCl (Ondansetron Hcl 4 Mg/2 Ml Vial) 4 mg IVPUSH Q8H PRN PRN Reason: Nausea and Vomiting Oxycodone HCl (Oxycodone Hcl Immed Release 5 Mg Tablet) 5 mg PO Q6H PRN PRN Reason: Pain, Moderate(Pain Scale 4-6) Paroxetine HCl (Paroxetine Hcl 40 Mg Tablet) 40 mg PO DAILY [facility] Last Admin: 05/03/23 08:16 Dose: 40 mg Documented By: RIO Sodium Chloride (0.9 % Sodium Chloride Flush 3 Ml Syringe) 3 ml IVFLUSH QSHIFT [facility] Last Admin: 05/03/23 08:16 Dose: 3 ml Documented By: RIO Vitamin D (Cholecalciferol (Vitamin D3) 25 Mcg Tablet) 50 mcg PO DAILY [facility] Last Admin: 05/03/23 08:15 Dose: 50 mcg Documented By: RIO Zolpidem Tartrate (Zolpidem Tartrate 5 Mg Tablet) 5 mg PO BEDTIME PRN PRN Reason: Insomnia Labs 05/02/23 11:44 05/02/23 05:52 Labs: Laboratory Results - last 24 hr 05/02/23 05/02/23 05/02/23 11:11 11:44 16:21 MCV 93.9 MCH 30.8 MCHC 32.8 RDW 12.9 Plt Count 185 MPV 11.1 Absolute Nucleated RBC 0.000 Nucleated RBC % (auto) 0.0 POC Glucose 198 H 242 H 05/02/23 05/03/23 20:13 07:29 MCV MCH MCHC RDW Plt Count MPV Absolute Nucleated RBC Nucleated RBC % (auto) POC Glucose 281 H 91 Procedures Date of Service Date of Service: 05/03/23 Progress Note: A&P Assessment and plan (1) Acute appendicitis: Status: Acute Assessment and Plan: mild inflammatory changes seen on CT around area of appendix symptoms seem resolved she describes some loose stools now a little hesitant about going home because of loose stools will reeval later looks well Time Spent With Patient Time: Total time managing care of this patient today ____ minutes. Quality Stroke Does the patient have a stroke diagnosis?: No VTE Prior VTE?: No VTE Risk Level:: Surgical - moderate VTE Device Contraindication: N/A - Device Ordered VTE Drug Contraindication: Treatment Not Indicated
[2023-05-03 11:17] LABS: Glucose, Whole Blood 245 mg/dL (60-115)
[2023-05-03] MEDS: Insulin Lispro 100 UNIT/ML 3 ML VIAL SUBCUT (11:24)
--- NOTE | 2023-05-03 13:01 | PM.EVENT ---
Event Note Date of Service: 05/03/23 Event Note: now states she is ready to go home feels well no diarrhea no abdl pain tolerating diet well exam benign ok to dc home daughters at bedside ffup with Dr Voss Time Spent With Patient Time: Total time managing care of this patient today ____ minutes.
--- NOTE | 2023-05-03 13:13 | MHC.CM.PN ---
EMR reviewed. Patient is medically cleared for dc home self care. Daughters are at bedside to transport. IMM delivered.
--- NOTE | 2023-05-05 14:23 | PM.DS ---
DS: Providers Provider Date of Service: 05/05/23 Date of admission: 05/01/23 07:21 Date of discharge: 05/03/23 Primary care physician: Reji Molina MD Admitting clinician: Kade Voss Consults: 05/01/23 07:20 Consult to Hospitalist Routine Comment: Consulting Provider: Hospitalist Reason For Exam: Med management, Afib, CAD, early appendicitis Discharging clinician: Kade Voss DS: Diagnosis Discharge Diagnosis (1) Acute appendicitis: Status: Acute DS: Summary Hospital Course Hospital Course: Bianca Hunt is a 78 year old female with PMH significant for a fib on eliquis, CKD, CAD, diabetes mellitus who presented to the ED with lower abd pain that began yesterday afternoon. The pain was sharp in nature and worse on the right side. This was associated with nausea without vomiting and diarrhea. The pain persisted and became severe prompting her to seek care in the ED. Work up in the ED included labs significant for leukocytosis of 12.9 and troponin of 39.5 down to 31.3, BNP 190. CT scan showed a dilated appendix with mild thickening of the base of the cecum suggestive of appendicitis. She was admitted to the surgical service. Discussion regarding surgical intervention verses observation were reviewed including the relative risks and benefits. Decision was made to treat patient with a IV antibiotics with observation. On the 2nd hospital day the patient did feel improved with minimal abdominal pain. She was continued on the antibiotics which she is tolerating well. Repeat laboratories revealed normal WBC. On the 3rd hospital day she was much improved but did report some knee pain. Her abdominal exam was benign with no tenderness. She was subsequently discharged to home on oral antibiotics: Augmentin 1 tab p.o. b.i.d. for 7 days. She will follow-up in the office in approximately 1 week. Time spent discussing smoking cessation with patient: 3 to 10 minutes Status at Discharge Functional status at discharge: independent ambulation Overall status at discharge: patient is back to baseline Time Attestation Discharge coordination time: Less than 30 minutes Quality: Safe Use of Opioids Does Pt have an Active Cancer Diagnosis on the Problem List?: No Quality: Stroke Does the patient have a stroke diagnosis?: No Physical Exam Vital Signs: Vital Signs: Last Vital Signs Temp 97.5 F 05/03/23 07:40 Pulse 64 05/03/23 07:40 Resp 16 05/03/23 07:40 BP 121/69 05/03/23 07:40 Pulse Ox 95 05/03/23 07:40 O2 Del Method Room Air 05/03/23 07:40 O2 Flow Rate 2 05/01/23 15:14 BMI result Body Mass Index 31.1 Const: General: comfortable and no acute distress Resp: Effort & Inspection: normal respiratory effort Cardio: Rate: regular rate GI: Palpation (GI): Soft to palpation, not firm and nontender Discharge Plan Discharge Anticipated Discharge Date/Time: 05/03/23 13:02 Patient Disposition: Home, Self-Care Discharge Diagnosis: acute appendicitis Referrals: Kade Voss MD [Physician] - 2 Weeks Reji Molina MD [Primary Care Provider] - 1 Week Discharge Medications: New amoxicillin-pot clavulanate 875-125 mg tablet 1 tab PO BID Qty: 14 0RF Continued (DME) pen needle, diabetic 31 gauge x 3/16 needle See Rx Instructions subcut DIRECTED Qty: 100 11RF Rx Instructions: 4x daily cholecalciferol (vitamin D3) 50 mcg (2,000 unit) capsule 50 mcg PO DAILY 30 Days Qty: 90 3RF atorvastatin 40 mg tablet 40 mg PO BEDTIME Qty: 30 0RF Eliquis 5 mg tablet 5 mg PO BID Qty: 180 3RF alprazolam 1 mg Tablet 1 mg PO TID losartan 100 mg Tablet 100 mg PO DAILY metoprolol tartrate 25 mg Tablet 25 mg PO BID carbidopa-levodopa 25-100 mg tablet 1 tab PO TID paroxetine HCl 40 mg tablet 40 mg PO DAILY ferrous fumarate 324 mg (106 mg iron) Tablet 324 mg PO DAILY (DME) lancets Misc See Rx Instructions .ROUTE TID Qty: 100 Rx Instructions: As directed cyanocobalamin (vitamin B-12) 1,000 mcg/mL solution 1,000 mcg IM Q28D (DME) Contour Next Test Strips Strip See Rx Instructions .Route Rx Instructions: As directed 3 times a day (DME) 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 meter [Contour Next One Meter] Misc See Rx Instructions .Route Rx Instructions: As directed (DME) FreeStyle Sanjeev 2 [place] Misc See Rx Instructions .ROUTE .MEDSUPPLY Qty: 1 0RF Rx Instructions: As directed (DME) FreeStyle Sanjeev 2 Sensor Kit See Rx Instructions .ROUTE .MEDSUPPLY Qty: 2 11RF Rx Instructions: Once every 14 days Tresiba FlexTouch U-100 100 unit/mL (3 mL) insulin pen 56 unit subcut DAILY furosemide [Lasix] 20 mg tablet 20 mg PO DAILY amlodipine 5 mg tablet 5 mg PO DAILY levothyroxine 175 mcg tablet 175 mcg PO DAILY Victoza 3-Kvng 0.6 mg/0.1 mL (18 mg/3 mL) pen injector 1.8 mg subcut DAILY Discharge Orders: Discharge Order (Routine); Ordered 05/03/23 Ordered By: Vasu Cerda Diet: Advance to usual diet Activity on Discharge: As tolerated Stand Alone Forms: Patient Portal Discharge page Activity Restrictions/Additional Instructions: call Dr Voss's office for ffup in 1-2 weeks return to ED if with fevers, abdominal pain Care Plan Goals: monitor for abdl pain oral antibiotics Health Concerns: chronic atrial fibrillation appendicitis anticoagulation Plan of Treatment: oral antibiotics Assessment: doing well Discharge Date/Time: 05/03/23 13:37
== END 2023-05-03 13:37 | disposition home or self-care (01) | DRG 372 ==
LOC: HO.ED 05-01 07:44 → HO.EDOVER 05-01 08:13 → HO.S3 05-01 12:48
PROVIDERS: Surgery; Admitting Provider Surgery; Emergency Provider Emergency Medicine; PCP Internal Medicine; Visit Provider Surgery
DX: K35.30 Acute appendicitis with localized peritonitis, without perforation or gangrene (principal); I48.19 Other persistent atrial fibrillation; I50.32 Chronic diastolic (congestive) heart failure; E78.5 Hyperlipidemia, unspecified; I25.10 Atherosclerotic heart disease of native coronary artery without angina pectoris; G20.A1 Parkinson's disease without dyskinesia, without mention of fluctuations; Z20.822 Contact with and (suspected) exposure to COVID-19; N18.30 Chronic kidney disease, stage 3 unspecified; E11.22 Type 2 diabetes mellitus with diabetic chronic kidney disease; E03.9 Hypothyroidism, unspecified; Z79.4 Long term (current) use of insulin; Z79.01 Long term (current) use of anticoagulants; Z79.890 Hormone replacement therapy; Z79.899 Other long term (current) drug therapy
CPT/HCPCS: 36415; 71046; 74177; 80048; 80053; 80076; 81003; 82947; 83690; 83880; 84484; 85025; 85027; 86140; 87502; 87635; 93005; 94640; 99285; J0131; J2543; J2765; J7120; Q9967

== ENCOUNTER → 2023-05-01 04:27 | Outpatient (BNV) | payer MEDICARE, SELFPAY | PROVIDERS: Admitting Provider Surgery; Emergency Provider Emergency Medicine; PCP Internal Medicine; Visit Provider Internal Medicine | DX: I48.20 Chronic atrial fibrillation, unspecified (principal) | CPT/HCPCS: 93010 ==

== ENCOUNTER → 2023-05-01 07:21 | Outpatient (BNV) | payer MEDICARE, SELFPAY | PROVIDERS: Admitting Provider Surgery; Emergency Provider Emergency Medicine; PCP Internal Medicine; Visit Provider Student in an Organized Health Care Education/Training Program | DX: K35.30 Acute appendicitis with localized peritonitis, without perforation or gangrene (principal); E11.8 Type 2 diabetes mellitus with unspecified complications; G20.A1 Parkinson's disease without dyskinesia, without mention of fluctuations; I10 Essential (primary) hypertension | CPT/HCPCS: 99222 ==

== ENCOUNTER → 2023-05-01 07:21 | Outpatient (BNV) | payer MEDICARE, SELFPAY | PROVIDERS: Admitting Provider Surgery; Emergency Provider Emergency Medicine; PCP Internal Medicine; Visit Provider Physician Assistant Surgical | DX: K35.30 Acute appendicitis with localized peritonitis, without perforation or gangrene (principal) | CPT/HCPCS: 99222; 99232; 99238; 99499 ==

== ENCOUNTER 2023-05-07 14:10 | Outpatient (AMB) | payer MEDICARE, SELFPAY ==
--- NOTE | 2023-05-07 14:11 | A.OFFVIS_ITS ---
Intake Vital Signs 05/07/23 14:22 Height 5 ft 2 in Weight 171 lb 4 oz BMI 31.3 BP 107/63 Blood Pressure Location Lt brachial Position Sitting Pulse 68 Intake Visit Reasons: abdominal pain ? appendecitis Intake Note: Patient is seen in office for ER follow up visit, following abdominal pain ? appendicitis. Pt c/o:had stomach aches for a week, still has some discomfort in the area, nausea, diarrhea, denies vomit, constipation, Due to the IV placed at ED has a large bubble on the left arm and is unable to fully bend arm, would like Dr to have a look at it. ER & CT:05/01/23 Director Of Materials Required: No Accompanied by: Family/Other Allergies baclofen Adverse Reaction (Unknown, Verified 05/07/23 14:23) CONFUSION, OUT OF IT oxycodone [From Percocet] Adverse Reaction (Unknown, Verified 05/07/23 14:23) NAUSEA Medication List - Last Reconciled 05/07/23 by Kade Voss MD alprazolam 1 mg PO TID amlodipine 5 mg PO DAILY amoxicillin-pot clavulanate 875-125 mg 1 tab PO BID apixaban (Eliquis) 5 mg PO BID atorvastatin 40 mg PO BEDTIME blood sugar diagnostic (Contour Next Test Strips) As directed 3 times a day 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 meter (Contour Next One Meter) As directed carbidopa-levodopa 25-100 mg 1 tab PO TID cholecalciferol (vitamin D3) 50 mcg PO DAILY 30 days cyanocobalamin (vitamin B-12) 1,000 mcg IM Q28D ferrous fumarate 324 mg PO DAILY flash glucose scanning reader (FreeStyle Sanjeev 2 [place]) As directed flash glucose sensor (FreeStyle Sanjeev 2 Sensor kit) Once every 14 days furosemide (Lasix) 20 mg PO DAILY insulin degludec (Tresiba FlexTouch U-100 insulin) 56 units subcut DAILY lancets As directed levothyroxine 175 mcg PO DAILY liraglutide (Victoza 3-Kvng) 1.8 mg subcut DAILY losartan 100 mg PO DAILY metoprolol tartrate 25 mg PO BID paroxetine HCl 40 mg PO DAILY pen needle, diabetic 4x daily HPI HPI Comments History of Present Illness Details 78-year-old female patient presenting wi th early appendicitis admitted on 04/30/2023 and placed on IV antibiotics. Patient is also on Eliquis for a atrial fibrillation. Patient improved quickly with the IV antibiotics and was subsequently discharged home on 05/03/2023 with a prescription for Augmentin. She returns today for follow-up examination 1 week after discharge. She continues to take the antibiotics without difficulty. Denies any nausea or vomiting. She still has a slight amount of discomfort but generally feels much improved. She also reports an area of swelling in the left antecubital fossa at the site of a previous intravenous. She would like this evaluated. [facility] Medical History Persistent atrial fibrillation CKD (chronic kidney disease) CAD (coronary artery disease) (HFpEF) heart failure with preserved ejection fraction Vitamin D deficiency HLD (hyperlipidemia) T2DM (type 2 diabetes mellitus) Acute exacerbation of congestive heart failure Hypertension Parkinson disease Hypothyroid Diabetes Surgical History Hx of cardiac cath (~01/2017) Hx of carpal tunnel repair Hx of knee surgery Hx of hysterectomy Family History Father No problems noted. Mother T2DM (type 2 diabetes mellitus) Brother T2DM (type 2 diabetes mellitus) Social History Household Members: None Housing: Apartment Do you presently have visiting nurse or other home services: No Alcohol intake: current Alcohol intake frequency: holidays/special occasions only Alcohol type: wine Patient Tobacco Use Status: Former Tobacco user Quit Date: 20 years ago Tobacco use type: Cigarette service: No Current occupational status: retired Review of Systems Const All systems reviewed & are unremarkable except as noted in HPI and below Physical Exam Const General: no acute distress Nutritional Appearance: well nourished Orientation/consciousness: patient oriented x3 Limitations: no limitations Resp Effort & Inspection: normal respiratory effort, no audible wheezes, no cough and no respiratory distress GI Inspection: Yes normal to inspection Palpation (GI): Soft to palpation, nontender, no guarding, not rigid and No hepatosplenomegaly present Neuro General: patient oriented x3 Extrem Other: Left antecubital fossa with the and intravenous site at the crease and a large area of ecchymosis lateral to this. No abscess or intravenous clot is identified. No cellulitis. General: Yes normal to inspection and Yes no clubbing, cyanosis or edema Assessment & Plan Assessment & Plan (1) Acute appendicitis: Code(s): K35.80 - Unspecified acute appendicitis Qualifiers: Acute appendicitis type: with localized peritonitis Appendicitis gangrene presence: without gangrene Appendicitis perforation presence: without perforation Appendicitis abscess presence: without abscess Qualified Code(s): K35.30 - Acute appendicitis with localized peritonitis, without perforation or gangrene Plan 78-year-old female patient with a recent history of early appendicitis treated non operatively with antibiotics. She is much improved with the antibiotics and wishes to avoid surgery at this time. We discussed next steps should the pain return including admission for IV antibiotics with subsequent laparoscopic or open appendectomy. She was encouraged to call should the symptoms return. She expressed understanding and agrees with the plan. Coding Level of Care Code Est Pt Level 3 (10439) Diagnoses Acute appendicitis with localized peritonitis, without perforation, abscess, or gangrene K35.30 Acute appendicitis type: with localized peritonitis Appendicitis gangrene presence: without gangrene Appendicitis perforation presence: without perforation Appendicitis abscess presence: without abscess
[2023-05-07 14:22] VITALS: BP 107/63; PULSE 68; BMI 31.3
== END 2023-05-07 14:47 | disposition home or self-care (01) ==
PROVIDERS: PCP Internal Medicine; Visit Provider Surgery
DX: K35.30 Acute appendicitis with localized peritonitis, without perforation or gangrene (principal)
CPT/HCPCS: 99213

== ENCOUNTER → 2023-05-07 14:10 | Outpatient (BNVA) | payer MEDICARE, SELFPAY | PROVIDERS: PCP Internal Medicine; Visit Provider Surgery | DX: K35.30 Acute appendicitis with localized peritonitis, without perforation or gangrene (principal) | CPT/HCPCS: 99212 ==

== ENCOUNTER → 2023-05-25 12:47 | Outpatient (REF) | payer MEDICARE, SELFPAY ==
--- NOTE | 2023-05-25 12:51 | CA_ITS ---
Transthoracic Echocardiogram Patient (Last, First, Middle): Bianca Hunt A Gender: Female Date of : 1945 Age: 78 Procedure Date: 05/25/2023 Procedure Type: Transthoracic Echocardiogram Location: OP Height: 157.48 cm Weight: 77.57 kg BSA: 1.79 m2 Heart Rate: 64 bpm BP: 110 / 64 mmHg [employer]: [place] Referring MD: Shaun Saleh MD Symptoms: I50.30 - Unspecified diastolic (congestive) heart failure Study Quality: Adequate w contrast ECG Rhythm: Atrial Fibrillation Conclusions: - The left ventricular systolic function is hyperdynamic. The calculated ejection fraction is 71% by biplane method. - There is mild to moderately decreased right ventricular systolic function. - There is mild calcification of the aortic valve. - No obvious valvular pathology seen on this study. - Mild pulmonary hypertension is present. Findings Procedure Information Contrast agent, definity, is being given per protocol without apparent complications. Left Ventricle Normal left ventricular cavity size. There is mildly increased left ventricular wall thickness. The left ventricular systolic function is hyperdynamic. The calculated ejection fraction is 71% by biplane method. Diastolic function is indeterminate on the basis of available data. Right Ventricle Normal right ventricular cavity size. There is mild to moderately decreased right ventricular systolic function. Atria Both atria are normal in size. Aortic Valve There is a normal trileaflet aortic valve. There is mild calcification of the aortic valve. There is no aortic valve stenosis. There is no aortic valve regurgitation. Mitral Valve The mitral valve appears normal. There is trace mitral valve regurgitation. There is no mitral valve stenosis. Pulmonic Valve The pulmonic valve is likely normal. Tricuspid Valve There is trace tricuspid valve regurgitation. Mild pulmonary hypertension is present. Great Vessels The asc aorta is normal in size. Venous The inferior vena cava is normal in size and collapses greater than 50% with inspiration. Pericardium/Pleural There is no evidence of pericardial effusion. Prior Study Comparison No significant change compared to prior study dated: 02/05/2022. Recommendations, Care & Conclusions No obvious valvular pathology seen on this study. Measurements 2D Linear Measurements IVSd: 1.21 0.6-0.9/0.6-1.0 cm LVIDd: 3.89 3.9-5.3/4.2-5.9 cm LVIDd Index: 2.17 2.4-3.2/2.2-3.1 cm/m2 LVIDs: 2.47 2.0-3.6 cm LVPWd: 1.06 0.7-1.1 cm LA Diam: 4.00 2.7-3.8/3.0-4.0 cm LAIDs Index: 2.23 1.5-2.3 cm/m2 LV Mass: 181.88 67-162/88-224 g LV Mass Index: 101.61 43-95/49-115 g/m2 LVOT Diam: 2.20 3.0+(-)1.3 cm 2D Systolic Function EF 4C: 72.80 >55% EF 2C: 70.80 >55% EF BiP: 70.80 >55% Mitral Valve MV Pk E: 0.95 Aortic Valve AoV Pk Robert: 1.28 AoV Mn Robert: 0.90 AoV VTI: 0.28 AoV Pk Grad: 7.00 Aov Mn Grad: 4.00 RHONDA Cont.VTI: 1.96 LVOT LVOT Pk Robert: 0.70 LVOT Mn Robert: 0.47 LVOT VTI: 0.14 LVOT Pk Grad: 2.00 LVOT Mn Grad: 1.00 LVOT Diam: 2.20 LVOT Area: 3.80 Diastolic Function MV Pk E: 0.95 Right Ventricle TAPSE (mm): 13.60 TVS' Robert: 6.84 Tricuspid Valve TR Pk Robert: 2.96 TR Pk Grad: 35.00 RA Press: 3.00 RVSP: 38.00 Great Vessels Aorta Sinus of Valsalva: 2.80 2.0-3.5 cm Ao Asc: 3.10 2.1-3.4 cm Pulmonary Valve PV Pk Robert: 0.77 Peak PV Grad: 2.00 Updated in Other Vendor System with Status of Final Erik Hays MD electronically signed on 05/26/2023 8:18:41 AM with status of Final
== END ==
LOC: HO.CARD 12:47
PROVIDERS: PCP Internal Medicine; Visit Provider Internal Medicine Cardiovascular Disease
DX: I50.30 Unspecified diastolic (congestive) heart failure (principal)
CPT/HCPCS: 93306; Q9957

== ENCOUNTER → 2023-05-25 12:51 | Outpatient (BNV) | payer MEDICARE, SELFPAY | PROVIDERS: PCP Internal Medicine; Visit Provider Internal Medicine | DX: I50.30 Unspecified diastolic (congestive) heart failure (principal); I35.8 Other nonrheumatic aortic valve disorders | CPT/HCPCS: 93306 ==

== ENCOUNTER → 2023-06-25 12:50 | Outpatient (BNVA) | payer MEDICARE, SELFPAY | PROVIDERS: PCP Internal Medicine; Visit Provider Internal Medicine Hypertension Specialist | DX: I13.0 Hypertensive heart and chronic kidney disease with heart failure and stage 1 through stage 4 chronic kidney disease, or unspecified chronic kidney disease (principal); N18.9 Chronic kidney disease, unspecified; I50.30 Unspecified diastolic (congestive) heart failure | CPT/HCPCS: 99212 ==

== ENCOUNTER 2023-06-25 13:02 | Outpatient (AMB) | payer MEDICARE, SELFPAY ==
[2023-06-25 12:56] VITALS: BP 110/62; PULSE 65; BMI 32.1
--- NOTE | 2023-06-25 12:56 | HO.NEPHOV ---
HPI HPI Comments History of Present Illness Details 78-year-old woman with longstanding hypertension diabetes mellitus with CKD. She is here for routine follow-up. No new complaints today. All medications were reviewed. [facility] Medical History Persistent atrial fibrillation CKD (chronic kidney disease) CAD (coronary artery disease) (HFpEF) heart failure with preserved ejection fraction Vitamin D deficiency HLD (hyperlipidemia) T2DM (type 2 diabetes mellitus) Acute exacerbation of congestive heart failure Hypertension Parkinson disease Hypothyroid Diabetes Surgical History Hx of cardiac cath (~01/2017) Hx of carpal tunnel repair Hx of knee surgery Hx of hysterectomy Family History Father No problems noted. Mother T2DM (type 2 diabetes mellitus) Brother T2DM (type 2 diabetes mellitus) Social History Household Members: None Housing: Apartment Do you presently have visiting nurse or other home services: No Alcohol intake: current Alcohol intake frequency: holidays/special occasions only Alcohol type: wine Patient Tobacco Use Status: Former Tobacco user Quit Date: 20 years ago Tobacco use type: Cigarette service: No Current occupational status: retired Vital Signs 06/25/23 12:56 Height 5 ft 2 in Weight 175 lb 6 oz BMI 32.1 BP 110/62 Blood Pressure Location Rt brachial Position Sitting Pulse 65 Pulse Source Pulse Oximeter Physical Exam Vital Signs: Last Vital Signs Pulse 65 06/25/23 12:56 BP 110/62 06/25/23 12:56 BMI result Body Mass Index 32.1 Const General: comfortable Nutritional Appearance: well nourished Orientation/consciousness: patient oriented x3 HEENT Head: No normal to inspection Mouth: moist mucous membranes Neck Neck: Yes supple and Yes no JVD Resp Auscultation: clear to auscultation bilaterally, no rales and rub present Cardio Jugular venous distension: no JVD Palpation: no palpable S3 and no palpable S4 Heart sounds: no rubs GI Palpation (GI): Soft to palpation and nontender Percussion: No Fluid wave present General: Yes no CVA tenderness Back/Spine/Pelvis Back: no CVA tenderness Skin General skin exam: no rashes or lesions noted Neuro General: patient oriented x3 Extrem General: Yes no pedal edema and No clubbing Assessment & Plan Assessment & Plan (1) CKD (chronic kidney disease): Comment: Mild CKD in a setting of hypertension diabetes mellitus renal function stay Code(s): N18.9 - Chronic kidney disease, unspecified Plan: Goal is to slow the portion disease Maintain A1c less than 7% Maintain blood pressure less than 130/80 Continue to avoid nephrotoxic agents including NSAIDs. (2) (HFpEF) heart failure with preserved ejection fraction: Code(s): I50.30 - Unspecified diastolic (congestive) heart failure Plan: Well compensated Follow-up with cardiology as needed Discussed low-salt (3) Hypertension: Code(s): I10 - Essential (primary) hypertension Qualifiers: Hypertension type: unspecified Qualified Code(s): I10 - Essential (primary) hypertension Plan: Blood pressure well controlled No changes were made to her antihypertensive medications Orders: Orders Total Protein Urine Random 4 Months N18.9 - Chronic kidney disease, unspecified Creatinine Urine 4 Months N05.9 - Unspecified nephritic syndrome with unspecified morphologic changes, N18.9 - Chronic kidney disease, unspecified Comprehensive Met. Panel 4 Months N18.9 - Chronic kidney disease, unspecified Basic Metabolic Panel 4 Months N18.9 - Chronic kidney disease, unspecified Coding Level of Care Code Est Pt Level 4 (87959) Diagnoses CKD (chronic kidney disease) N18.9 (HFpEF) heart failure with preserved ejection fraction I50.30 Hypertension, unspecified type I10 Hypertension type: unspecified Results Reviewed Nephrology Results: Hgb 15.6 g/dl (12.0-16.0) 05/02/23 WBC 5.9 X10*3/uL (4.8-10.8) 05/02/23 Plt Count 185 X10*3/uL (160-400) 05/02/23 Sodium 144 mmol/L (135-145) 05/02/23 Potassium 3.6 mmol/L (3.3-5.1) 05/02/23 Chloride 108 mmol/L (96-108) 05/02/23 Carbon Dioxide 25 mmol/L (22-29) 05/02/23 BUN 11 mg/dL (9-16) 05/02/23 Creatinine 0.83 mg/dL (0.5-1.4) 05/02/23 Calcium 9.3 mg/dL (8.4-10.2) 05/02/23 Urine Protein Negative mg/dL (Neg-Trace) 05/01/23
== END 2023-06-25 13:13 | disposition home or self-care (01) ==
PROVIDERS: PCP Internal Medicine; Visit Provider Internal Medicine Hypertension Specialist
DX: I12.9 Hypertensive chronic kidney disease with stage 1 through stage 4 chronic kidney disease, or unspecified chronic kidney disease (principal); N18.9 Chronic kidney disease, unspecified; I50.30 Unspecified diastolic (congestive) heart failure
CPT/HCPCS: 99214

== ENCOUNTER 2023-06-29 13:43 | Outpatient (AMB) | payer MEDICARE, SELFPAY ==
--- NOTE | 2023-06-29 14:13 | MHC.OFFVIS ---
Intake Vital Signs 06/29/23 14:17 Height 5 ft 2 in Weight 171 lb 15.369 oz BMI 31.4 BP 110/70 Blood Pressure Location Lt brachial Position Sitting Pulse 72 Intake Visit Reasons: 6 mth fu w/ ekg Intake Note: 6 month follow-up with ekg feeling good Pet Sitter Required: No Allergies baclofen Adverse Reaction (Unknown, Verified 06/25/23 13:00) CONFUSION, OUT OF IT oxycodone [From Percocet] Adverse Reaction (Unknown, Verified 06/25/23 13:00) NAUSEA Medication List - Last Reconciled 06/29/23 by Shaun Saleh MD alprazolam 1 mg PO TID amlodipine 10 mg PO DAILY apixaban (Eliquis) 5 mg PO BID atorvastatin 40 mg PO BEDTIME blood sugar diagnostic (Contour Next Test Strips) As directed 3 times a day 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 meter (Contour Next One Meter) As directed carbidopa-levodopa 25-100 mg 1 tab PO TID cholecalciferol (vitamin D3) 50 mcg PO DAILY 30 days cyanocobalamin (vitamin B-12) 1,000 mcg IM Q28D ferrous fumarate 324 mg PO DAILY flash glucose scanning reader ([employer]Style Sanjeev 2 [place]) As directed flash glucose sensor (FreeStyle Sanjeev 2 Sensor kit) Once every 14 days furosemide (Lasix) 20 mg PO DAILY insulin degludec (Tresiba FlexTouch U-100 insulin) 56 units subcut DAILY lancets As directed levothyroxine 175 mcg PO DAILY liraglutide (Victoza 3-Kvng) 1.8 mg subcut DAILY losartan 100 mg PO DAILY metoprolol tartrate 25 mg PO BID paroxetine HCl 40 mg PO DAILY pen needle, diabetic 4x daily HPI HPI Comments History of Present Illness Details Bianca comes for follow-up. She has been doing well overall from cardiac perspective. No worsening symptoms. She says when she goes up a flight of stairs carrying weight she does get short of breath otherwise she has no new symptoms. Her recent echocardiogram shows normal LV systolic function but [id number] RV systolic dysfunction with mild pulmonary hypertension. She denies any symptoms of worsening orthopnea, PND, leg edema. She takes her diuretics on a regular basis. Denies any prolonged palpitation irregular heartbeat. Denies any exertional chest pain. No bleeding issues or neurologic events. [facility] Medical History Persistent atrial fibrillation CKD (chronic kidney disease) CAD (coronary artery disease) (HFpEF) heart failure with preserved ejection fraction Vitamin D deficiency HLD (hyperlipidemia) T2DM (type 2 diabetes mellitus) Acute exacerbation of congestive heart failure Hypertension Parkinson disease Hypothyroid Diabetes Surgical History Hx of cardiac cath (~01/2017) Hx of carpal tunnel repair Hx of knee surgery Hx of hysterectomy Family History Father No problems noted. Mother T2DM (type 2 diabetes mellitus) Brother T2DM (type 2 diabetes mellitus) Social History Household Members: None Housing: Apartment Do you presently have visiting nurse or other home services: No Alcohol intake: current Alcohol intake frequency: holidays/special occasions only Alcohol type: wine Patient Tobacco Use Status: Former Tobacco user Quit Date: 20 years ago Tobacco use type: Cigarette service: No Current occupational status: retired Review of Systems Const Denies chills, Denies fatigue, Denies fever(s), Denies frequent falls, Denies weakness, Denies weight gain and Denies weight loss ENT Denies dizziness Card Denies chest pain, Denies leg edema, Denies lightheadedness, Denies palpitations, Denies dyspnea, Denies dyspnea on exertion, Denies orthopnea and Denies other (loss of consciousness) Resp Denies cough, Denies dyspnea and Denies dyspnea on exertion GI Denies hematochezia and Denies change in stool character Musc Denies abnormal gait, Denies muscle weakness, Denies numbness, Denies radiating pain into limb and Denies tingling Neuro Denies abnormal gait, Denies dizziness, Denies frequent falls, Denies numbness, Denies tingling and Denies weakness Endo Denies fatigue and Denies palpitations Physical Exam Vital Signs: Last Vital Signs Pulse 72 06/29/23 14:17 BP 110/70 06/29/23 14:17 BMI result Body Mass Index 31.4 Const General: cooperative, comfortable, no acute distress, alert, awake and well groomed Nutritional Appearance: overweight Orientation/consciousness: patient oriented x3 Limitations: no limitations Neck Neck: Yes trachea midline, Yes supple and Yes no JVD Chest Chest palpation & inspection: normal inspection of the chest Resp Effort & Inspection: normal respiratory effort Auscultation: clear to auscultation bilaterally Cardio Jugular venous distension: no JVD Palpation: normal PMI Rate: regular rate Rhythm: abnormal rhythm irregularly irregular Heart sounds: S1 normal heart sound present, S2 normal heart sound present and Other heart sounds present (S4 present) GI Auscultation: normal bowel sounds Skin General skin exam: no rashes or lesions noted Neuro General: patient oriented x3 and no focal motor deficits Extrem General: Yes no clubbing, cyanosis or edema Psych Appearance: grossly normal Office Procedures EKG Details: EKG shows atrial fibrillation with low-voltage QRS [id number]-[id number], Complete Assessment & Plan Assessment & Plan (1) Persistent atrial fibrillation: Code(s): I48.19 - Other persistent atrial fibrillation Plan: Chronic persistent atrial fibrillation doing well with rate control. Has failed rhythm control approach in the past. Continue rate control approach and continue current metoprolol therapy. Continue full oral anticoagulation, currently on Eliquis 5 mg b.i.d.. Quarterly renal function test should be pursued. (2) (HFpEF) heart failure with preserved ejection fraction: Code(s): I50.30 - Unspecified diastolic (congestive) heart failure Plan: Heart failure preserved ejection fraction with predominantly RV systolic dysfunction related to diastolic dysfunction chronic atrial fibrillation and pulmonary hypertension. RV systolic pressures have improved. Continue current low-dose diuretic therapy. Management of heart failure was discussed in details. Daily weight monitoring avoidance of salt loading was discussed. Continue aggressive blood pressure control which is currently well optimized. Continue aggressive management diabetes. Additional diuretics as need be. (3) CAD (coronary artery disease): Code(s): I25.10 - Atherosclerotic heart disease of [place] coronary artery without angina pectoris Plan: Nonobstructive CAD. Continue aggressive medical therapy. Continue current full oral anticoagulation with avoidance of aspirin therapy to reduce bleeding risk. Continue aggressive blood pressure control. Diabetes under your care with goal hemoglobin A1c less than 7%. Goal LDL less than 70 mg/dL. Follow up in the clinic in 6 months time, sooner p.r.n.. Thank you for allowing me to partake in her care Coding Level of Care Code Est Pt Level 4 (23438) Diagnoses Persistent atrial fibrillation I48.19 (HFpEF) heart failure with preserved ejection fraction I50.30 CAD (coronary artery disease) I25.10 CPT Codes EKG - CPT: 51824-[id number], Complete ([id number])
[2023-06-29 14:17] VITALS: BP 110/70; PULSE 72; BMI 31.4
== END 2023-06-29 14:56 | disposition home or self-care (01) ==
PROVIDERS: PCP Internal Medicine; Visit Provider Internal Medicine Cardiovascular Disease
DX: I48.19 Other persistent atrial fibrillation (principal); I50.30 Unspecified diastolic (congestive) heart failure; I25.10 Atherosclerotic heart disease of native coronary artery without angina pectoris
CPT/HCPCS: 93010; 99214

== ENCOUNTER → 2023-06-29 13:43 | Outpatient (BNVA) | payer MEDICARE, SELFPAY | PROVIDERS: PCP Internal Medicine; Visit Provider Internal Medicine Cardiovascular Disease | DX: I48.19 Other persistent atrial fibrillation (principal); I50.30 Unspecified diastolic (congestive) heart failure; I25.10 Atherosclerotic heart disease of native coronary artery without angina pectoris; Z79.01 Long term (current) use of anticoagulants | CPT/HCPCS: 93005; 99212 ==

== ENCOUNTER 2023-09-18 10:57 | Outpatient (REF) | payer MEDICARE, SELFPAY ==
--- NOTE | ~2023-09-18 | XR_ITS ---
EXAMINATION: XR CHEST CLINICAL INFORMATION: Cough and fatigue COMPARISON: Previous chest x-ray most recent from 2023 TECHNIQUE: 2 views of the chest were obtained. FINDINGS: The cardiac and mediastinal contours are stable. The lungs are clear. No pleural effusion or pneumothorax. Degenerative changes of the spine. XR/XR chest 2V IMPRESSION: No evidence for acute disease in the chest.
[2023-09-18 13:13] LABS: MANUAL DIFF FLAG NO
[2023-09-18 13:26] LABS: Basophils Absolute Auto 0.1 X10*3/uL (0.0-0.2); Basophils Percent Auto 0.9 % (0-2); Eosinophils Absolute Auto 0.2 X10*3/uL (0.0-0.4); Eosinophils Percent Auto 2.1 % (0-4); Hematocrit 50.5 % (37.0-47.0); Hemoglobin 16.3 g/dl (12.0-16.0); Imm Gran Abs Auto 0.04 X10*3/uL (0.00-0.03); Imm Gran Pct Auto 0.4 % (0.0-0.4); Lymphocytes Absolute Auto 1.2 X10*3/uL (1.2-4.9); Lymphocytes Percent Auto 12.7 % (20-40); Mean Corpuscular HGB Conc 32.3 g/dl (31.0-35.0); Mean Corpuscular Hemoglobin 31.9 pg (27.0-33.0); Mean Corpuscular Volume 98.8 fL (80.0-98.0); Mean Platelet Volume 11.9 fL (9.4-12.3); Monocytes Absolute Auto 0.9 X10*3/uL (0.1-1.2); Monocytes Percent Auto 9.4 % (2-11); Neutrophils Absolute Auto 6.8 x10*3/uL (2.0-8.3); Neutrophils Percent Auto 74.5 % (45-73); Platelet Count 217 X10*3/uL (160-400); Red Blood Count 5.11 X10*6/uL (4.20-5.50); Red Cell Distribution Width 12.8 % (11.0-16.0); White Blood Count 9.1 X10*3/uL (4.8-10.8)
== END 2023-09-18 10:58 | disposition home or self-care (01) ==
LOC: HO.HMGCX 10:57
PROVIDERS: PCP Internal Medicine; Visit Provider Internal Medicine
DX: H57.89 Other specified disorders of eye and adnexa (principal); R53.83 Other fatigue; R05.9 Cough, unspecified
CPT/HCPCS: 36415; 71046; 85025

== ENCOUNTER 2023-10-04 00:57 | Inpatient (IN) | payer MEDICARE, SELFPAY ==
[2023-10-04] VITALS (20 sets, daily range): BP systolic 104–165; BP diastolic 39–88; PULSE 60–134; RESP 13–38; TEMP 36.1–37.1; O2SAT 77–100; BMI 33.6; BMI 33.4
--- NOTE | 2023-10-04 | ECG_ITS ---
Test Reason : DIFFICULTY BREATHING Blood Pressure : / mmHG Vent. Rate : 088 BPM Atrial Rate : 000 BPM P-R Int : 000 ms QRS Dur : 070 ms QT Int : 382 ms P-R-T Axes : 000 062 027 degrees QTc Int : 462 ms Atrial fibrillation Low voltage QRS Abnormal ECG When compared with ECG of 01-MAY-2023 04:40, No significant change was found Referred By: Generic ED Physician Electronically Signed By:JONY OLIVER MD
--- NOTE | ~2023-10-04 | XR_ITS ---
EXAMINATION: XR CHEST CLINICAL INFORMATION: Shortness of breath. COMPARISON: 10/18/2023 TECHNIQUE: Frontal view of the chest was obtained. FINDINGS: The patient is rotated. The cardiomediastinal silhouette is stable. There is bilateral perihilar increased markings and faint/patchy mid to lower lung field opacities. There are no significant pleural effusions. The bony structures and soft tissues are unremarkable. XR/XR chest 1V IMPRESSION: Bilateral perihilar increased markings and faint/patchy mid to lower lung field opacities. Consider edema versus atypical pneumonia.
--- NOTE | 2023-10-04 01:07 | PC.NURSE ---
respiratory at bedside placing pt on BIPAP
--- NOTE | 2023-10-04 01:12 | ED_ITS ---
HPI - SOB/Dyspnea General Chief Complaint: Dyspnea Stated Complaint: DIFFICULTY BREATHING Time Seen by Provider: 10/04/23 01:11 Source: patient and EMS Mode of arrival: EMS History of Present Illness ED Provider: Dr Rodriguez HPI Narrative: 78-year-old female with history of pulmonary hypertension CHF, reports onset of shortness of breath over 2 hours, called EMS who found patient with oxygenation of 77% on room air and supplemented with 15 L OxyMask and improvement in oxygenation to 94%. Related Data Home Medications ?Medication ?Instructions ?Recorded ?Confirmed alprazolam 1 mg tablet 1 mg PO TID 03/19/20 06/29/23 losartan 100 mg tablet 100 mg PO DAILY 03/19/20 06/29/23 metoprolol tartrate 25 mg tablet 25 mg PO BID 03/19/20 06/29/23 cyanocobalamin (vitamin B-12) 1,000 mcg IM Q28D 03/29/20 06/29/23 1,000 mcg/mL injection solution lancets #100 ea 04/18/20 05/07/23 carbidopa 25 mg-levodopa 100 mg 1 tab PO TID 10/29/20 06/29/23 tablet blood sugar diagnostic (Contour 02/18/21 05/07/23 Next Test Strips) 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 meter (Contour Next 02/18/21 05/07/23 One Meter) furosemide 20 mg tablet (Lasix) 20 mg PO DAILY 08/14/21 06/29/23 levothyroxine 175 mcg tablet 175 mcg PO DAILY 06/17/22 06/29/23 paroxetine HCl 40 mg tablet 40 mg PO DAILY 06/17/22 06/29/23 insulin degludec 100 unit/mL (3 56 unit subcut DAILY 12/22/22 06/29/23 mL) subcutaneous pen (Tresiba FlexTouch U-100 insulin) liraglutide 0.6 mg/0.1 mL (18 mg/3 1.8 mg subcut DAILY 12/22/22 06/29/23 mL) subcutaneous pen injector (Victoza 3-Kvng) ferrous fumarate 324 mg (106 mg 324 mg PO DAILY 05/01/23 06/29/23 iron) tablet amlodipine 5 mg tablet 10 mg PO DAILY 06/25/23 06/29/23 Previous Rx's ?Medication ?Instructions ?Recorded pen needle, diabetic 31 gauge x #100 ea 04/28/2006/26 flash glucose scanning reader #1 ea 02/18/21 (FreeStyle Sanjeev 2 [place]) flash glucose sensor (FreeStyle #2 ea 02/18/21 Sanjeev 2 Sensor kit) cholecalciferol (vitamin D3) 50 50 mcg PO DAILY 30 days #90 caps 08/29/21 mcg (2,000 unit) capsule atorvastatin 40 mg tablet 40 mg PO BEDTIME #30 tabs 03/18/22 apixaban 5 mg tablet (Eliquis) 5 mg PO BID #180 tabs 03/31/23 Allergies Allergy/AdvReac Type Severity Reaction Status Date / Time baclofen AdvReac Unknown CONFUSION, Verified 10/04/23 01:05 OUT OF IT oxycodone [From Percocet] AdvReac Unknown NAUSEA Verified 10/04/23 01:05 Review of Systems 2 Review of Systems: Pertinent positives and negatives as stated in [facility]PI [facility] Medical History Source: nursing notes reviewed Medical History Persistent atrial fibrillation CKD (chronic kidney disease) CAD (coronary artery disease) (HFpEF) heart failure with preserved ejection fraction Vitamin D deficiency HLD (hyperlipidemia) T2DM (type 2 diabetes mellitus) Acute exacerbation of congestive heart failure Hypertension Parkinson disease Hypothyroid Diabetes Surgical History Hx of cardiac cath (~01/2017) Hx of carpal tunnel repair Hx of knee surgery Hx of hysterectomy Family History Family History Father No problems noted. Mother T2DM (type 2 diabetes mellitus) Brother T2DM (type 2 diabetes mellitus) Social History Social History Household Members: None Housing: Apartment Do you presently have visiting nurse or other home services: No Alcohol intake: current Alcohol intake frequency: holidays/special occasions only Alcohol type: wine Patient Tobacco Use Status: Former Tobacco user Tobacco use type: Cigarette Smoked in Last 30 Days: No Use of substances other than those prescribed or required for medical reasons: No Advance Directives: No Advance Directives Information Provided: No Do you have a plan to hurt others: No Plan service: No Current occupational status: retired Physical Exam 2 Vital Signs: Vital Signs: Last Vital Signs Temp 98.8 F 10/04/23 00:58 Pulse 92 10/04/23 00:58 Resp 32 H 10/04/23 01:23 BP 134/63 10/04/23 01:54 Pulse Ox 100 10/04/23 01:36 O2 Del Method BiPAP 10/04/23 01:36 FiO2 100 10/04/23 01:36 Oxygen Flow Rate 15 10/04/23 00:58 BMI result Body Mass Index 33.6 VITAL SIGNS: Reviewed. GENERAL: Well developed, well nourished, in no acute distress. HEAD: Normocephalic/atraumatic EYES: PERRLA, EOMI EARS: Ext canals without abnormality NOSE: Nares patent bilateral OROPHARYNX: no oral lesions noted, posterior pharynx clear NECK: Supple, no adenopathy LUNGS: Significant work of breathing, tachypnea, decreased breath sounds throughout SpO2<100> on BiPAP CARDIOVASCULAR: Regular rate and rhythm without noted murmurs, no JVD or lower extremity edema. ABDOMEN: Soft, non-tender, non-distended with bowel sounds. MUSCULOSKELETAL: No tenderness, deformities, or effusions noted on gross inspection. EXTREMITIES: No cyanosis, clubbing or edema. SKIN: Inspection of the skin reveals no rashes NEUROLOGIC: Alert and oriented x 4. Strength and sensation to light touch were grossly intact x 4. Medications Administered Discontinued Medications Generic Name Dose Route Start Last Admin Trade Name Freq PRN Reason Stop Dose Admin Furosemide 60 mg 10/04/23 01:40 10/04/23 01:54 Furosemide 100 Mg/10 Ml Vial IVPUSH 10/04/23 01:41 60 mg ONCE ONE Administration Protocol Medical Decision Making Medical Decision Making MDM Narrative: 78-year-old female with history and clinical presentation, DDX: Acute CHF exacerbation complicated with pulmonary hypertension, viral illness, less likely pneumonia I reviewed all investigations and hematologic indices are negative for leukocytosis/anemia/thrombocytopenia. VBG does not demonstrate respiratory acidosis there is evidence of mild hypercapnia. Chemistry indices negative for PREETI/electrolyte/liver enzyme derangements, BNP is 243 and there is hyperglycemia without evidence of DKA or HHS. Viral testing is negative for influenza/RSV/COVID-19. Chest x-ray significant for venous congestion/edema Differential Diagnosis Differential Diagnoses: The differential diagnosis associated with the presentation includes Please see the discussion above Admission/Observation Consideration of admission/observation: Escalation of care including admission/observation considered Please see the discussion above Consult Healthcare Provider Management of the patient was discussed with: Pipeline Construction Inspector Please see the discussion above Lab Data MDM Lab Attestation statement: I reviewed the patient's lab results. Please see the discussion above 10/04/23 01:11 10/04/23 01:11 Labs: Lab Results 10/04/23 10/04/23 10/04/23 Range/Units 01:10 01:11 01:17 WBC 9.3 (4.8-10.8) X10*3/uL RBC 4.69 (4.20-5.50) X10*6/uL Hgb 15.1 (12.0-16.0) g/dl Hct 45.9 (37.0-47.0) % MCV 97.9 (80.0-98.0) fL MCH 32.2 (27.0-33.0) pg MCHC 32.9 (31.0-35.0) g/dl RDW 13.2 (11.0-16.0) % Plt Count 196 (160-400) X10*3/uL MPV 11.6 (9.4-12.3) fL Immature Gran % (Auto) 0.5 H (0.0-0.4) % Neut % (Auto) 72.8 (45-73) % Lymph % (Auto) 15.6 L (20-40) % [place] % (Auto) 7.8 (2-11) % Eos % (Auto) 2.5 (0-4) % Baso % (Auto) 0.8 (0-2) % Lymph # (Auto) 1.5 (1.2-4.9) X10*3/uL [place] # (Auto) 0.7 (0.1-1.2) X10*3/uL Eos # (Auto) 0.2 (0.0-0.4) X10*3/uL Baso # (Auto) 0.1 (0.0-0.2) X10*3/uL Abs Immat Gran (auto) 0.05 H (0.00-0.03) X10*3/uL Absolute Neuts (auto) 6.8 (2.0-8.3) x10*3/uL Absolute Nucleated RBC 0.000 (0.0-0.012) X10*3/uL Nucleated RBC % (auto) 0.0 (0.0-0.2) /100WBC VBG pH 7.33 (7.32-7.43) VBG pCO2 57 mmHg VBG pO2 40 mmHg VBG HCO3 30 H (22-26) mmol/L VBG O2 Saturation 56.0 % VBG Base Excess 3.0 mmol/L Sodium 140 (135-145) mmol/L Potassium 4.3 (3.3-5.1) mmol/L Chloride 102 (96-108) mmol/L Carbon Dioxide 26 (22-29) mmol/L Anion Gap 16 (12-20) BUN 20 H (9-16) mg/dL Creatinine 1.26 (0.5-1.4) mg/dL Estim Creat Clear Calc 37.4 Estimated GFR 41 POC Glucose 280 H (60-115) mg/dL Random Glucose 289 H (60-115) mg/dL Calcium 9.9 D (8.4-10.2) mg/dL Total Bilirubin 1.0 (0.0-1.0) mg/dL AST 47 H (5-31) U/L ALT 23 (0-31) U/L Alkaline Phosphatase 190 H (39-117) U/L B-Natriuretic Peptide 243 H (<100) pg/mL Total Protein 7.8 (6.5-8.0) g/dL Albumin 4.3 (3.5-5.0) g/dL Influenza Type A (PCR) NEGATIVE (Negative) Influenza Type B (PCR) NEGATIVE (Negative) RSV RNA Qual (PCR) NEGATIVE (Negative) SARS-CoV-2 RNA (RT-PCR) NEGATIVE (Negative) Independent Interpretation I performed an independent interpretation of an: EKG Interpretation: Atrial fibrillation without RVR, HR-88, no STEMI, QRS/QTC is within normal limits. Radiology Impression Discussion of test interpretation with radiology: I have reviewed the radiologist's reading. Radiologist Impression: Please see the discussion above External Record Review External record reviewed: Outpatient record, Prior outpatient labs and Prior outpatient radiology Chronic Conditions Patient?s care impacted by: Hypertension CHF, pulmonary hypertension Critical Care Time Critical Care Time Critical Care Time: Yes Total Critical Care Time: 60 Attestation: I personally attest to this time spent taking care of the patient. Discharge Plan Discharge Clinical Impression: Acute hypoxic respiratory failure, Pulmonary hypertension, CHF exacerbation Patient Disposition: Admitted As Inpatient Prescriptions: No Action (DME) pen needle, diabetic 31 gauge x 3/16 needle See Rx Instructions subcut DIRECTED Qty: 100 11RF Rx Instructions: 4x daily cholecalciferol (vitamin D3) 50 mcg (2,000 unit) capsule 50 mcg PO DAILY 30 Days Qty: 90 3RF atorvastatin 40 mg tablet 40 mg PO BEDTIME Qty: 30 0RF Eliquis 5 mg tablet 5 mg PO BID Qty: 180 3RF alprazolam 1 mg Tablet 1 mg PO TID losartan 100 mg Tablet 100 mg PO DAILY metoprolol tartrate 25 mg Tablet 25 mg PO BID carbidopa-levodopa 25-100 mg tablet 1 tab PO TID paroxetine HCl 40 mg tablet 40 mg PO DAILY ferrous fumarate 324 mg (106 mg iron) Tablet 324 mg PO DAILY (DME) lancets Misc See Rx Instructions .ROUTE TID Qty: 100 Rx Instructions: As directed cyanocobalamin (vitamin B-12) 1,000 mcg/mL solution 1,000 mcg IM Q28D (DME) Contour Next Test Strips Strip See Rx Instructions .Route Rx Instructions: As directed 3 times a day (DME) 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 meter [Contour Next One Meter] Misc See Rx Instructions .Route Rx Instructions: As directed (DME) FreeStyle Sanjeev 2 [place] [facility] See Rx Instructions .ROUTE .MEDSUPPLY Qty: 1 0RF Rx Instructions: As directed (DME) FreeStyle Sanjeev 2 Sensor Kit See Rx Instructions .ROUTE .MEDSUPPLY Qty: 2 11RF Rx Instructions: Once every 14 days Tresiba FlexTouch U-100 100 unit/mL (3 mL) insulin pen 56 unit subcut DAILY furosemide [Lasix] 20 mg tablet 20 mg PO DAILY levothyroxine 175 mcg tablet 175 mcg PO DAILY amlodipine 5 mg tablet 10 mg PO DAILY Victoza 3-Kvng 0.6 mg/0.1 mL (18 mg/3 mL) pen injector 1.8 mg subcut DAILY Print Language: [place]
[2023-10-04 01:14] LABS: Glucose, Whole Blood 280 mg/dL (60-115)
--- NOTE | 2023-10-04 01:14 | PC.NURSE ---
pt biba from home, a&ox4, respirations even and unlabored. pt reporting increasing shortness of breath x2 hours, reports hx of CHF. on ems arrival pt 77% on room air, pt placed on non rebreather 15L and went up to 94%. on arrival, respiratory at bedside placing pt on bipap, pt tolerated well. called to bedside. Labs obtained and sent. pt normal sinus on tele 80bpm.
[2023-10-04 01:16] LABS: MANUAL DIFF FLAG NO
[2023-10-04 01:17] LABS: Basophils Absolute Auto 0.1 X10*3/uL (0.0-0.2); Basophils Percent Auto 0.8 % (0-2); Eosinophils Absolute Auto 0.2 X10*3/uL (0.0-0.4); Eosinophils Percent Auto 2.5 % (0-4); Hematocrit 45.9 % (37.0-47.0); Hemoglobin 15.1 g/dl (12.0-16.0); Imm Gran Abs Auto 0.05 X10*3/uL (0.00-0.03); Imm Gran Pct Auto 0.5 % (0.0-0.4); Lymphocytes Absolute Auto 1.5 X10*3/uL (1.2-4.9); Lymphocytes Percent Auto 15.6 % (20-40); Mean Corpuscular HGB Conc 32.9 g/dl (31.0-35.0); Mean Corpuscular Hemoglobin 32.2 pg (27.0-33.0); Mean Corpuscular Volume 97.9 fL (80.0-98.0); Mean Platelet Volume 11.6 fL (9.4-12.3); Monocytes Absolute Auto 0.7 X10*3/uL (0.1-1.2); Monocytes Percent Auto 7.8 % (2-11); Neutrophils Absolute Auto 6.8 x10*3/uL (2.0-8.3); Neutrophils Percent Auto 72.8 % (45-73); Platelet Count 196 X10*3/uL (160-400); Red Blood Count 4.69 X10*6/uL (4.20-5.50); Red Cell Distribution Width 13.2 % (11.0-16.0); White Blood Count 9.3 X10*3/uL (4.8-10.8)
[2023-10-04 01:24] LABS: VBG HCO3 30 mmol/L (22-26); VBG pCO2 57 mmHg; VBG pH 7.33 (7.32-7.43); VBG pO2 40 mmHg
[2023-10-04 01:25] LABS: Venous Blood Gas Refer to POC result
[2023-10-04 01:38] LABS: Alanine Aminotransferase 23 U/L (0-31); Albumin Level 4.3 g/dL (3.5-5.0); Alkaline Phosphatase 190 U/L (39-117); Anion Gap 16 (12-20); Aspartate Amino Transferase 47 U/L (5-31); Blood Urea Nitrogen 20 mg/dL (9-16); Calcium 9.9 mg/dL (8.4-10.2); Carbon Dioxide 26 mmol/L (22-29); Chloride 102 mmol/L (96-108); Creatinine Clr Calc Pharmacy 37.4; Estimated Glomerular Filt Rate 41; Glucose Random 289 mg/dL (60-115); Potassium 4.3 mmol/L (3.3-5.1); Sodium 140 mmol/L (135-145); Total Protein 7.8 g/dL (6.5-8.0)
[2023-10-04 01:42] LABS: B Type Natriuretic Peptide 243 pg/mL (<100)
[2023-10-04] MEDS: Furosemide 100 MG/10 ML VIAL 60 MG IVPUSH (01:54)
[2023-10-04 01:56] LABS: Influenza A PCR NEGATIVE (Negative); Influenza B PCR NEGATIVE (Negative); Resp Syncy Virus RNA Qual PCR NEGATIVE (Negative); SARS COV2 PCR INHOUSE NEGATIVE (Negative)
--- NOTE | 2023-10-04 01:59 | PC.NURSE ---
pt medicated per jun, pt placed on purewick due to being in BIPAP.
--- NOTE | 2023-10-04 02:54 | P.HPCC_ITS ---
History of Present Illness Date of Service: 10/04/23 Attending physician on admission: Jeremias Mcbride Chief Complaint: Dyspnea ?The patient is a 78-year-old female with a past medical history of? diastolic heart failure,? atrial fibrillation (on Eliquis), coronary artery disease, Parkinson?s, hypertension,? diabetes mellitus, hyperlipidemia, chronic kidney disease,? and hypothyroidism? who presented to the emergency department with worsening dyspnea.? EMS reported the patient was satting 77% on room air,? requiring 15 L via OxyMask. On arrival to the emergency department? patient was placed on BiPAP due to increased work of breathing ? Laboratory data was significant for BUN 20, creatinine 1.26, BNP 243 ?Imaging:? ?Chest x-ray:? consistent with pulmonary edema ? Patient will be admitted to ICU for management of acute hypoxic respiratory failure? from pulmonary edema requiring BiPAP Review of Systems 2 Review of Systems: Yes all other systems are reviewed and are negative PMFSH Past Medical History Medical History (Updated 10/04/23 @ 04:00 by Christine Anand RN) Atrial fibrillation Persistent atrial fibrillation CKD (chronic kidney disease) CAD (coronary artery disease) (HFpEF) heart failure with preserved ejection fraction Vitamin D deficiency HLD (hyperlipidemia) T2DM (type 2 diabetes mellitus) Acute exacerbation of congestive heart failure Hypertension Parkinson disease Hypothyroid Diabetes Family History Family History Father No problems noted. Mother T2DM (type 2 diabetes mellitus) Brother T2DM (type 2 diabetes mellitus) Surgical History Surgical History Hx of cardiac cath (~01/2017) Hx of carpal tunnel repair Hx of knee surgery Hx of hysterectomy Social History Social History Household Members: None Housing: House Do you presently have visiting nurse or other home services: No Alcohol intake: current Alcohol intake frequency: holidays/special occasions only Alcohol type: wine Patient Tobacco Use Status: Former Tobacco user Tobacco use type: Cigarette Smoked in Last 30 Days: No Use of substances other than those prescribed or required for medical reasons: No Have you been hit, kicked, punched, or otherwise hurt by someone within the past year? If so, by whom?: No Is there a partner from a previous relationship who is making you feel unsafe now?: No Are you made to feel afraid or neglected: No Advance Directives: No Advance Directives Information Provided: No Do you have a plan to hurt others: No Plan Recently lost weight without trying: No Nutrition Risks: No Nutritional Risk Patient : No : No Poor oral hygiene: No service: No Current occupational status: retired Meds Allergies Allergy/AdvReac Type Severity Reaction Status Date / Time baclofen AdvReac Unknown CONFUSION, Verified 10/04/23 01:05 OUT OF IT oxycodone [From Percocet] AdvReac Unknown NAUSEA Verified 10/04/23 01:05 Active Medications: Current Medications Apixaban (Apixaban 5 Mg Tablet) 5 mg PO BID ANIL Furosemide 200 mg/ Sodium (Chloride) 100 mls @ 2.5 mls/hr IVCONT .Q24H [facility] Home Medications ?Medication ?Instructions ?Recorded ?Confirmed ?Last Taken ?Type alprazolam 1 mg tablet 1 mg PO TID 03/19/20 10/04/23 10/03/23 History losartan 100 mg tablet 100 mg PO DAILY 03/19/20 10/04/23 10/03/23 History metoprolol tartrate 25 mg tablet 25 mg PO BID 03/19/20 10/04/23 10/03/23 History cyanocobalamin (vitamin B-12) 1,000 mcg IM Q28D 03/29/20 10/04/23 04/30/23 History 1,000 mcg/mL injection solution lancets #100 ea 04/18/20 05/07/23 04/30/23 History carbidopa 25 mg-levodopa 100 mg 1 tab PO TID 10/29/20 10/04/23 10/03/23 History tablet blood sugar diagnostic (Contour 02/18/21 05/07/23 04/30/23 History Next Test Strips) 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 meter (Contour Next 02/18/21 05/07/23 04/30/23 History One Meter) furosemide 20 mg tablet (Lasix) 20 mg PO DAILY 08/14/21 10/04/23 10/03/23 History levothyroxine 175 mcg tablet 175 mcg PO DAILY 06/17/22 10/04/23 10/03/23 History paroxetine HCl 40 mg tablet 40 mg PO DAILY 06/17/22 10/04/23 10/03/23 History insulin degludec 100 unit/mL (3 90 unit subcut DAILY 12/22/22 10/04/23 10/03/23 History mL) subcutaneous pen (Tresiba FlexTouch U-100 insulin) liraglutide 0.6 mg/0.1 mL (18 mg/3 1.8 mg subcut DAILY 12/22/22 10/04/23 04/30/23 History mL) subcutaneous pen injector (Victoza 3-Kvng) amlodipine 5 mg tablet 10 mg PO DAILY 06/25/23 10/04/23 10/03/23 History acetaminophen 500 mg tablet 1,000 mg PO BID PRN Pain 10/04/23 10/04/23 Unknown History ferrous sulfate 325 mg (65 mg 325 mg PO DAILY 10/04/23 10/04/23 Unknown History iron) tablet Physical Exam 2 Vital Signs: Vital Signs: Last Vital Signs Temp 98.8 F 10/04/23 00:58 Pulse 92 10/04/23 00:58 Resp 32 H 10/04/23 01:23 BP 134/63 10/04/23 01:54 Pulse Ox 100 10/04/23 01:36 O2 Del Method BiPAP 10/04/23 01:36 FiO2 100 10/04/23 01:36 Oxygen Flow Rate 15 10/04/23 00:58 BMI result Body Mass Index 33.6 ?General:? Alert oriented x3 . On BIPAP, Following all commands. ?HEENT:? Head is normocephalic, atraumatic, pupils equal round reactive to light accommodation bilaterally.? Extraocular movements appear intact.? Buccal mucosa is dry, Neck is supple without lymphadenopathy. ?Cardiac:? AFIB rate control, no murmurs rubs or gallops. ?Pulmonary:?Rhonchi at bases, no wheezes. ?Abdomen:? ?Abdomen soft, non-tender, non-distended. Normal bowel sounds. No pulsatile mass. No hepatosplenomegaly. ?Musculoskeletal:? Moving all 4 extremities upon request a major joints, there is no crepitus or tenderness.? The strength is 5/5 bilaterally and throughout all 4 extremities.? Gait not assessed at this point. ?Neurologic:? cranial nerves 2-12 are grossly intact.? No focal deficits noted.Motor strength as above.?? ?Skin:? Intact, no lesions, erythema, clubbing or cyanosis.? No ulcers. Vascular:? 2+ pulses upper and lower extremities distally. Bilateral lower extremity trace edema Results Labs 10/04/23 04:19 10/04/23 04:19 Labs: Laboratory Results - last 24 hr 10/04/23 10/04/23 10/04/23 01:10 01:11 01:17 MCV 97.9 MCH 32.2 MCHC 32.9 RDW 13.2 Plt Count 196 MPV 11.6 Immature Gran % (Auto) 0.5 H Neut % (Auto) 72.8 Lymph % (Auto) 15.6 L [place] % (Auto) 7.8 Eos % (Auto) 2.5 Baso % (Auto) 0.8 Lymph # (Auto) 1.5 [place] # (Auto) 0.7 Eos # (Auto) 0.2 Baso # (Auto) 0.1 Abs Immat Gran (auto) 0.05 H Absolute Neuts (auto) 6.8 Absolute Nucleated RBC 0.000 Nucleated RBC % (auto) 0.0 VBG pH 7.33 VBG pCO2 57 VBG pO2 40 VBG HCO3 30 H VBG O2 Saturation 56.0 VBG Base Excess 3.0 Anion Gap 16 Estim Creat Clear Calc 37.4 Estimated GFR 41 POC Glucose 280 H Random Glucose 289 H Calcium 9.9 D Total Bilirubin 1.0 AST 47 H ALT 23 Alkaline Phosphatase 190 H B-Natriuretic Peptide 243 H Total Protein 7.8 Albumin 4.3 Influenza Type A (PCR) NEGATIVE Influenza Type B (PCR) NEGATIVE RSV RNA Qual (PCR) NEGATIVE SARS-CoV-2 RNA (RT-PCR) NEGATIVE Imaging Radiologist's Impressions: Impressions Chest X-Ray 10/04/23 01:30 IMPRESSION: Bilateral perihilar increased markings and faint/patchy mid to lower lung field opacities. Consider edema versus atypical pneumonia. Assessment and Plan (1) CHF exacerbation: Status: Acute (2) Acute hypoxic respiratory failure: Status: Acute (3) (HFpEF) heart failure with preserved ejection fraction: Status: Acute (4) Hypertension: Qualifiers: Hypertension type: unspecified Qualified Code(s): I10 - Essential (primary) hypertension Status: Acute (5) CKD (chronic kidney disease): Status: Acute Plan 78-year-old female with a past medical history of? diastolic heart failure,? atrial fibrillation (on Eliquis), coronary artery disease, Parkinson?s, hypertension,? diabetes mellitus, hyperlipidemia, chronic kidney disease,? and hypothyroidism? admitted to ICU for management of? acute hypoxic respiratory failure from pulmonary edema Neuro:? No acute issues.?? Cardiac:? ??Pulmonary edema:? BNP is elevated to 243,? chest x-ray consistent with pulmonary edema.? ? According to family Lasix was recently decreased,? likely the cause of acute? decompensation.? Last echo today from 2023 showed preserved EF. Received 60 mg of IV push Lasix in the emergency department.? Will initiate? Lasix drip.?Underlying hypertension history:? will resume blood pressure medications when stable Pulmonary: Acute? hypoxic respiratory failure-? ? from pulmonary edema,? requiring BiPAP due to increased work of breathing and hypoxia. ? Continue diuresing, Will wean off as tolerated.? Renal:?Chronic kidney disease:? BUN and creatinine at baseline.? Will? closely monitor? renal indices? due to diuresing? Endo: ? ? no acute issues GI:? ? No acute issues ID: ?No acute issues Heme/Onc:? No acute issues. Psych:? No acute issues. Miscellaneous:? No acute issues. Prophylaxis:? Eliquis Diet:? ? NPO while on BiPAP CODE STATUS:? full code confirmed with family and patient Critical care time: x30 min? of critical care time Case discussed with attending Dr. Mcbride
[2023-10-04] MEDS: Furosemide 200 MG in 0.9 % Sodium Chloride 80 ML IVCONT (03:17)
[2023-10-04 04:31] LABS: VBG Base Excess 4.8 mmol/L; VBG HCO3 29 mmol/L (22-26); VBG pCO2 42 mmHg; VBG pH 7.44 (7.32-7.43); VBG pO2 53 mmHg
[2023-10-04 04:44] LABS: MANUAL DIFF FLAG NO
[2023-10-04 04:46] LABS: Basophils Absolute Auto 0.1 X10*3/uL (0.0-0.2); Basophils Percent Auto 0.6 % (0-2); Eosinophils Absolute Auto 0.1 X10*3/uL (0.0-0.4); Eosinophils Percent Auto 0.5 % (0-4); Hematocrit 44.8 % (37.0-47.0); Imm Gran Abs Auto 0.04 X10*3/uL (0.00-0.03); Imm Gran Pct Auto 0.4 % (0.0-0.4); Lymphocytes Absolute Auto 0.7 X10*3/uL (1.2-4.9); Mean Corpuscular HGB Conc 33.5 g/dl (31.0-35.0); Mean Corpuscular Hemoglobin 32.2 pg (27.0-33.0); Mean Corpuscular Volume 96.1 fL (80.0-98.0); Mean Platelet Volume 11.2 fL (9.4-12.3); Monocytes Absolute Auto 0.9 X10*3/uL (0.1-1.2); Monocytes Percent Auto 8.3 % (2-11); Neutrophils Absolute Auto 9.3 x10*3/uL (2.0-8.3); Neutrophils Percent Auto 84.2 % (45-73); Platelet Count 157 X10*3/uL (160-400); Red Blood Count 4.66 X10*6/uL (4.20-5.50); Red Cell Distribution Width 13.2 % (11.0-16.0); White Blood Count 11.1 X10*3/uL (4.8-10.8)
[2023-10-04 05:00] LABS: Anion Gap 16 (12-20); Blood Urea Nitrogen 20 mg/dL (9-16); Calcium 9.8 mg/dL (8.4-10.2); Carbon Dioxide 25 mmol/L (22-29); Chloride 102 mmol/L (96-108); Creatinine Clr Calc Pharmacy 41.6; Estimated Glomerular Filt Rate 47; Glucose Random 250 mg/dL (60-115); Magnesium 2.1 mg/dL (1.6-2.6); Phosphorus 3.4 mg/dL (2.7-4.5); Potassium 4.3 mmol/L (3.3-5.1); Sodium 139 mmol/L (135-145)
[2023-10-04 05:22] LABS: Venous Blood Gas Refer to POC result
[2023-10-04 05:27] LABS: Troponin-I High Sensitivity 44.8 ng/L (<3.5-17.0)
[2023-10-04 08:18] LABS: Glucose, Whole Blood 192 mg/dL (60-115)
--- NOTE | 2023-10-04 08:33 | PHA.MEDREC ---
Pharmacy Consult ? Medication Reconciliation Pharmacy has completed the medication reconciliation. spoke with patient to confirm medications. She confirmed that she uses 90 units of Tresiba. States she is still on Victoza however has not taken it for about a week since it is currently not in stock. She had her B12 injection last week but her and daughter are unsure of what day last week. Patient reports she takes an iron supplement at home. She was unsure on a few of her frequencies so I spoke with daughter over the phone to confirm them, she had a list on her phone. Daughter confirmed the Tresiba was just recently increased this past week to 90 units. Patient reports she took her medications yesterday.
[2023-10-04] MEDS: Insulin Lispro 100 UNIT/ML 3 ML VIAL SUBCUT ×4 (08:35→21:15)
[2023-10-04] MEDS: Apixaban 5 MG TABLET PO ×2 (08:37→20:01)
--- NOTE | 2023-10-04 10:41 | MHC.CM.PN ---
IMM DELIVERED PT LIVES ALONE, INDEPENDENT WITH MOBILITY. +HCP ON FILE AND VERIFIED. PCP DR. PERDUE DP: HOME, NO SERVICES IS THE GOAL, DAUGHTER WILL TRANSPORT HOME. CM WILL CONTINUE TO FOLLOW FOR ANY CHANGE TO DC PLAN/NEEDS.
--- NOTE | 2023-10-04 11:30 | PM.EVENT ---
Event Note Date of Service: 10/04/23 Event Note: Discvussed with ICU attending. Tx from ICU. Treated for Dyspnea, CHF, was on bipap initially. lasix gtt , -5L. Time Spent With Patient Time: Total time managing care of this patient today ____ minutes.
[2023-10-04 11:33] LABS: Glucose, Whole Blood 314 mg/dL (60-115)
--- NOTE | 2023-10-04 12:17 | P.CONCA_ITS ---
History of Present Illness History of Present Illness Date of Service: 10/04/23 Requesting physician: Malissa Reyes Chief complaint: CHF Narrative: 78-year-old female with background history of persistent atrial fibrillation and congestive heart failure presenting with shortness of breath and acute heart failure. She was persistently gaining weight over the last few weeks and over the last few days was getting progressively short of breath. Chest x-ray showed pulmonary edema. She was admitted to the ICU for noninvasive positive pressure ventilation and diuretics. She is currently on a Lasix drip. She is denying any chest discomfort shortness of breath. She uses a lot of canned and processed foods and her sodium intake is significantly more than 2 g. She has Parkinson's disease which is well controlled with carbidopa levodopa. On anticoagulation with Eliquis 5 mg twice a day. [facility] Past Medical History Medical History (Updated 10/04/23 @ 04:00 by Christine Anand RN) Atrial fibrillation Persistent atrial fibrillation CKD (chronic kidney disease) CAD (coronary artery disease) (HFpEF) heart failure with preserved ejection fraction Vitamin D deficiency HLD (hyperlipidemia) T2DM (type 2 diabetes mellitus) Acute exacerbation of congestive heart failure Hypertension Parkinson disease Hypothyroid Diabetes Family History Family History Father No problems noted. Mother T2DM (type 2 diabetes mellitus) Brother T2DM (type 2 diabetes mellitus) Surgical History Surgical History Hx of cardiac cath (~01/2017) Hx of carpal tunnel repair Hx of knee surgery Hx of hysterectomy Social History Social History Household Members: None Housing: House Do you presently have visiting nurse or other home services: No Alcohol intake: current Alcohol intake frequency: holidays/special occasions only Alcohol type: wine Patient Tobacco Use Status: Former Tobacco user Tobacco use type: Cigarette Smoked in Last 30 Days: No Use of substances other than those prescribed or required for medical reasons: No Currently Displaying Signs/Symptoms of Drug Intoxication Withdrawal: No Have you been hit, kicked, punched, or otherwise hurt by someone within the past year? If so, by whom?: No Is there a partner from a previous relationship who is making you feel unsafe now?: No Are you made to feel afraid or neglected: No Advance Directives: No Advance Directives Information Provided: No Do you have a plan to hurt others: No Plan Recently lost weight without trying: No Nutrition Risks: No Nutritional Risk Patient : No : No Poor oral hygiene: No service: No Current occupational status: retired Meds Allergies Allergy/AdvReac Type Severity Reaction Status Date / Time baclofen AdvReac Unknown CONFUSION, Verified 10/04/23 01:05 OUT OF IT oxycodone [From Percocet] AdvReac Unknown NAUSEA Verified 10/04/23 01:05 Active Medications: Current Medications Apixaban (Apixaban 5 Mg Tablet) 5 mg PO BID [facility] Last Admin: 10/04/23 08:37 Dose: 5 mg Carbidopa/Levodopa (Carbidopa/Levodopa 25/100 Tablet) 1 tab PO TID [facility] Furosemide 200 mg/ Sodium (Chloride) 100 mls @ 2.5 mls/hr IVCONT .Q24H [facility] Last Admin: 10/04/23 03:17 Dose: 5 mg/hr, 2.5 mls/hr Insulin Human Lispro (Insulin Lispro 100 Unit/Ml 3 Ml Vial) 0 unit SUBCUT QIDACHS [facility]; Protocol Last Admin: 10/04/23 11:44 Dose: 8 unit Levothyroxine Sodium (Levothyroxine Sodium 175 Mcg Tablet) 175 mcg PO DAILY@0600 [facility] Home Medications ?Medication ?Instructions ?Recorded ?Confirmed ?Last Taken ?Type alprazolam 1 mg tablet 1 mg PO TID 03/19/20 10/04/23 10/03/23 History losartan 100 mg tablet 100 mg PO DAILY 03/19/20 10/04/23 10/03/23 History metoprolol tartrate 25 mg tablet 25 mg PO BID 03/19/20 10/04/23 10/03/23 History cyanocobalamin (vitamin B-12) 1,000 mcg IM Q28D 03/29/20 10/04/23 04/30/23 History 1,000 mcg/mL injection solution lancets #100 ea 04/18/20 05/07/23 04/30/23 History carbidopa 25 mg-levodopa 100 mg 1 tab PO TID 10/29/20 10/04/23 10/03/23 History tablet blood sugar diagnostic (Contour 02/18/21 05/07/23 04/30/23 History Next Test Strips) 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 meter (Contour Next 02/18/21 05/07/23 04/30/23 History One Meter) furosemide 20 mg tablet (Lasix) 20 mg PO DAILY 08/14/21 10/04/23 10/03/23 History levothyroxine 175 mcg tablet 175 mcg PO DAILY 06/17/22 10/04/23 10/03/23 History paroxetine HCl 40 mg tablet 40 mg PO DAILY 06/17/22 10/04/23 10/03/23 History insulin degludec 100 unit/mL (3 90 unit subcut DAILY 12/22/22 10/04/23 10/03/23 History mL) subcutaneous pen (Tresiba FlexTouch U-100 insulin) liraglutide 0.6 mg/0.1 mL (18 mg/3 1.8 mg subcut DAILY 12/22/22 10/04/23 04/30/23 History mL) subcutaneous pen injector (Victoza 3-Kvng) amlodipine 5 mg tablet 10 mg PO DAILY 06/25/23 10/04/23 10/03/23 History acetaminophen 500 mg tablet 1,000 mg PO BID PRN Pain 10/04/23 10/04/23 Unknown History ferrous sulfate 325 mg (65 mg 325 mg PO DAILY 10/04/23 10/04/23 Unknown History iron) tablet Physical Exam 2 Vital Signs: Vital Signs: Last Vital Signs Temp 97.5 F 10/04/23 08:00 Pulse 65 10/04/23 11:00 Resp 18 10/04/23 11:00 BP 108/49 L 10/04/23 11:00 Pulse Ox 93 10/04/23 11:00 O2 Del Method Nasal Cannula 10/04/23 11:00 O2 Flow Rate 7 10/04/23 11:00 FiO2 100 10/04/23 01:36 Oxygen Flow Rate 15 10/04/23 00:58 BMI result Body Mass Index 33.4 GENERAL APPEARANCE: in no acute distress, pleasant. On supplemental oxygen. NECK: no carotid bruit, + jugular venous distention. SKIN: no suspicious lesions, warm and dry. HEART: no murmurs, irregular rate and rhythm. LUNGS: Mild expiratory wheezes. ABDOMEN: soft, nontender. EXTREMITIES: no edema. PERIPHERAL PULSES: equal. NEUROLOGIC: No gross deficits, AAO X 3 Objective Labs and Meds 10/04/23 04:19 10/04/23 04:19 Lab results: Laboratory Results - last 24 hr 10/04/23 10/04/23 10/04/23 01:10 01:11 01:17 WBC 9.3 RBC 4.69 Hgb 15.1 Hct 45.9 MCV 97.9 MCH 32.2 MCHC 32.9 RDW 13.2 Plt Count 196 MPV 11.6 Immature Gran % (Auto) 0.5 H Neut % (Auto) 72.8 Lymph % (Auto) 15.6 L [place] % (Auto) 7.8 Eos % (Auto) 2.5 Baso % (Auto) 0.8 Lymph # (Auto) 1.5 [place] # (Auto) 0.7 Eos # (Auto) 0.2 Baso # (Auto) 0.1 Abs Immat Gran (auto) 0.05 H Absolute Neuts (auto) 6.8 Absolute Nucleated RBC 0.000 Nucleated RBC % (auto) 0.0 VBG pH 7.33 VBG pCO2 57 VBG pO2 40 VBG HCO3 30 H VBG O2 Saturation 56.0 VBG Base Excess 3.0 Sodium 140 Potassium 4.3 Chloride 102 Carbon Dioxide 26 Anion Gap 16 BUN 20 H Creatinine 1.26 Estim Creat Clear Calc 37.4 Estimated GFR 41 POC Glucose 280 H Random Glucose 289 H Calcium 9.9 D Phosphorus Magnesium Total Bilirubin 1.0 AST 47 H ALT 23 Alkaline Phosphatase 190 H Troponin I High Sens B-Natriuretic Peptide 243 H Total Protein 7.8 Albumin 4.3 Influenza Type A (PCR) NEGATIVE Influenza Type B (PCR) NEGATIVE RSV RNA Qual (PCR) NEGATIVE SARS-CoV-2 RNA (RT-PCR) NEGATIVE 10/04/23 10/04/23 10/04/23 04:19 04:22 08:04 WBC 11.1 H RBC 4.66 Hgb 15.0 Hct 44.8 MCV 96.1 MCH 32.2 MCHC 33.5 RDW 13.2 Plt Count 157 L MPV 11.2 Immature Gran % (Auto) 0.4 Neut % (Auto) 84.2 H Lymph % (Auto) 6.0 L [place] % (Auto) 8.3 Eos % (Auto) 0.5 Baso % (Auto) 0.6 Lymph # (Auto) 0.7 L [place] # (Auto) 0.9 Eos # (Auto) 0.1 Baso # (Auto) 0.1 Abs Immat Gran (auto) 0.04 H Absolute Neuts (auto) 9.3 H Absolute Nucleated RBC 0.000 Nucleated RBC % (auto) 0.0 VBG pH 7.44 H VBG pCO2 42 VBG pO2 53 VBG HCO3 29 H VBG O2 Saturation 84.0 VBG Base Excess 4.8 Sodium 139 Potassium 4.3 Chloride 102 Carbon Dioxide 25 Anion Gap 16 BUN 20 H Creatinine 1.13 Estim Creat Clear Calc 41.6 Estimated GFR 47 POC Glucose 192 H Random Glucose 250 H Calcium 9.8 Phosphorus 3.4 Magnesium 2.1 Total Bilirubin AST ALT Alkaline Phosphatase Troponin I High Sens 44.8 H B-Natriuretic Peptide Total Protein Albumin 4.0 Influenza Type A (PCR) Influenza Type B (PCR) RSV RNA Qual (PCR) SARS-CoV-2 RNA (RT-PCR) 10/04/23 11:30 WBC RBC Hgb Hct MCV MCH MCHC RDW Plt Count MPV Immature Gran % (Auto) Neut % (Auto) Lymph % (Auto) [place] % (Auto) Eos % (Auto) Baso % (Auto) Lymph # (Auto) [place] # (Auto) Eos # (Auto) Baso # (Auto) Abs Immat Gran (auto) Absolute Neuts (auto) Absolute Nucleated RBC Nucleated RBC % (auto) VBG pH VBG pCO2 VBG pO2 VBG HCO3 VBG O2 Saturation VBG Base Excess Sodium Potassium Chloride Carbon Dioxide Anion Gap BUN Creatinine Estim Creat Clear Calc Estimated GFR POC Glucose 314 H Random Glucose Calcium Phosphorus Magnesium Total Bilirubin AST ALT Alkaline Phosphatase Troponin I High Sens B-Natriuretic Peptide Total Protein Albumin Influenza Type A (PCR) Influenza Type B (PCR) RSV RNA Qual (PCR) SARS-CoV-2 RNA (RT-PCR) Imaging Radiologist's impression: Impressions Chest X-Ray 10/04/23 01:30 IMPRESSION: Bilateral perihilar increased markings and faint/patchy mid to lower lung field opacities. Consider edema versus atypical pneumonia. Assessment and Plan (1) CHF exacerbation: Status: Acute Plan Pleasant 78 year female with persistent atrial fibrillation and diastolic congestive heart failure presenting with acute exacerbation of congestive heart failure due to dietary sodium intake. She also had change in her diuretics dose recently and is still currently taking 20 mg daily. Clinically volume overloaded. Can stop the Lasix drip and transitioned to 40 mg IV b.i.d.. Heart rate is well controlled. Continue home dose of beta-layo. We will follow along with you. Thank you for allowing me to participate in the care of your patient. Please feel free to contact me if you have any questions. Procedures Date of Service Date of Service: 10/04/23
[2023-10-04] MEDS: Carbidopa/Levodopa 25/100 TABLET 1 TAB PO ×2 (15:52→20:01)
[2023-10-04 16:59] LABS: Glucose, Whole Blood 275 mg/dL (60-115)
[2023-10-04] MEDS: Furosemide 40 MG/4 ML VIAL IVPUSH (20:22)
[2023-10-04] MEDS: Atorvastatin Calcium 40 MG TABLET PO (20:23)
[2023-10-04] MEDS: Metoprolol Tartrate 25 MG TABLET PO (20:23)
[2023-10-04 20:37] LABS: Glucose, Whole Blood 397 mg/dL (60-115)
[2023-10-04 23:04] LABS: Glucose, Whole Blood 313 mg/dL (60-115)
[2023-10-04] MEDS: Acetaminophen 325 MG TABLET 650 MG PO (23:36)
[2023-10-04] MEDS: ALPRAZolam 0.5 MG TABLET 1 MG PO (23:37)
[2023-10-04] MEDS: Insulin Glargine,Hum.rec.anlog 100 UNIT/ML 10 ML VIAL 10 UNIT SUBCUT (23:56)
[2023-10-04] MEDS: Insulin Lispro 100 UNIT/ML 3 ML VIAL 8 UNIT SUBCUT (23:56)
[2023-10-05] VITALS (8 sets, daily range): BP systolic 104–115; BP diastolic 53–69; PULSE 56–76; RESP 18–20; TEMP 36–36.7; O2SAT 9–96
[2023-10-05 02:50] LABS: Glucose, Whole Blood 130 mg/dL (60-115)
[2023-10-05] MEDS: Levothyroxine Sodium 175 MCG TABLET PO (05:04)
--- NOTE | 2023-10-05 07:00 | CA_ITS ---
Transthoracic Echocardiogram Patient (Last, First, Middle): Bianca Hunt A Gender: Female Date of : 1945 Age: 78 Procedure Date: 10/05/2023 Procedure Type: Transthoracic Echocardiogram Location[place] [facility] [place] Height: 157.48 cm Weight: 82.56 kg BSA: 1.84 m2 Heart Rate: bpm BP: 104 / 63 mmHg Scuba Diving Instructor: MONSERRAT Referring MD: Malissa Reyes NP [employer] [facility] [place] [facility]: Shaun Saleh MD Symptoms: chf Study Quality: Fair ECG Rhythm: Atrial Fibrillation Conclusions: - 1. Normal LV ejection fraction of 60 65% with mild LVH 2. At least mild biatrial enlargement 3. Mildly dilated RV with moderately reduced RV systolic function 4. Cardiac valvular Dopplers within normal limits Findings Left Ventricle Normal left ventricular size and systolic function. There is mildly increased left ventricular wall thickness. The visually estimated ejection fraction is between 60-65%. Diastolic function is indeterminate on the basis of available data. Right Ventricle Mildly increased right ventricular cavity size. There is moderately decreased right ventricular systolic function. Atria The left atrium is mildly dilated. Interatrial shunt cannot be excluded. The right atrium is mildly dilated. Aortic Valve There is mild calcification of the aortic valve. There is no aortic valve stenosis. There is no aortic valve regurgitation. Mitral Valve There is mild anterior and posterior mitral leaflet thickening. There is trace mitral valve regurgitation. There is no mitral valve stenosis. Pulmonic Valve The pulmonic valve was not well visualized. Tricuspid Valve Likely normal tricuspid valve structure and function. There is trace tricuspid valve regurgitation. Tricuspid regurgitation envelope is inadequate for calculation of right ventricular systolic pressure. Indeterminate right atrial pressure. Great Vessels All visible segments of the aorta are normal in size. The pulmonary artery was not well visualized. Venous The inferior vena cava was not well visualized. Pericardium/Pleural The pericardium was not well visualized. Prior Study Comparison No significant change compared to prior study dated: 05/25/2023. RV systolic pressure could not be adequately assessed on this study Measurements 2D Linear Measurements IVSd: 1.35 0.6-0.9/0.6-1.0 cm LVIDd: 3.00 3.9-5.3/4.2-5.9 cm LVIDd Index: 1.63 2.4-3.2/2.2-3.1 cm/m2 LVIDs: 2.07 2.0-3.6 cm LVPWd: 1.33 0.7-1.1 cm LA Diam: 4.20 2.7-3.8/3.0-4.0 cm LAIDs Index: 2.28 1.5-2.3 cm/m2 LV Mass: 162.50 67-162/88-224 g LV Mass Index: 88.32 43-95/49-115 g/m2 LVOT Diam: 2.00 3.0+(-)1.3 cm 2D Systolic Function EF 4C: 64.30 >55% EF 2C: 59.50 >55% EF BiP: 62.10 >55% Mitral Valve MV Pk E: 0.86 MV Decel Time: 132.00 E'Lateral: 6.53 E'Medial: 6.64 E/E' Med: 12.90 E/E' Lat: 13.10 PHT: 39.00 MVA PHT: 5.64 Decel [place]: 6.48 Aortic Valve AoV Pk Robert: 1.52 AoV Mn Robert: 0.95 AoV VTI: 0.35 AoV Pk Grad: 9.00 Aov Mn Grad: 4.00 RHONDA Cont.VTI: 1.62 LVOT LVOT Pk Robert: 0.74 LVOT Mn Robert: 0.50 LVOT VTI: 0.18 LVOT Pk Grad: 2.00 LVOT Mn Grad: 1.00 LVOT Diam: 2.00 LVOT Area: 3.14 Diastolic Function MV Pk E: 0.86 E'Medial: 6.64 E/E' Med: 12.90 E' Laterial: 6.53 E/E' Lat: 13.10 Right Ventricle TAPSE (mm): 14.30 TVS' Robert: 9.00 Tricuspid Valve TR Pk Robert: 2.44 TR Pk Grad: 24.00 Great Vessels Aorta Sinus of Valsalva: 2.90 2.0-3.5 cm Ao Asc: 2.80 2.1-3.4 cm Pulmonary Valve PV Pk Robert: 0.84 Peak PV Grad: 3.00 Updated in Other Vendor System with Status of Final Shaun Saleh MD electronically signed on 10/05/2023 11:19:35 AM with status of Final
[2023-10-05 07:15] LABS: Glucose, Whole Blood 122 mg/dL (60-115)
[2023-10-05 07:46] LABS: MANUAL DIFF FLAG NO
[2023-10-05 07:48] LABS: Basophils Absolute Auto 0.1 X10*3/uL (0.0-0.2); Basophils Percent Auto 0.8 % (0-2); Eosinophils Absolute Auto 0.2 X10*3/uL (0.0-0.4); Hematocrit 46.8 % (37.0-47.0); Hemoglobin 15.4 g/dl (12.0-16.0); Imm Gran Abs Auto 0.04 X10*3/uL (0.00-0.03); Imm Gran Pct Auto 0.5 % (0.0-0.4); Lymphocytes Absolute Auto 1.3 X10*3/uL (1.2-4.9); Lymphocytes Percent Auto 17.3 % (20-40); Mean Corpuscular HGB Conc 32.9 g/dl (31.0-35.0); Mean Corpuscular Hemoglobin 31.5 pg (27.0-33.0); Mean Corpuscular Volume 95.7 fL (80.0-98.0); Mean Platelet Volume 11.4 fL (9.4-12.3); Monocytes Absolute Auto 0.8 X10*3/uL (0.1-1.2); Monocytes Percent Auto 10.4 % (2-11); Neutrophils Absolute Auto 5.2 x10*3/uL (2.0-8.3); Platelet Count 160 X10*3/uL (160-400); Red Blood Count 4.89 X10*6/uL (4.20-5.50); Red Cell Distribution Width 13.1 % (11.0-16.0); White Blood Count 7.7 X10*3/uL (4.8-10.8)
[2023-10-05 08:03] LABS: VBG Base Excess 11.3 mmol/L; VBG HCO3 38 mmol/L (22-26); VBG pCO2 58 mmHg; VBG pH 7.42 (7.32-7.43); VBG pO2 57 mmHg
[2023-10-05 08:05] LABS: Venous Blood Gas Refer to POC result
[2023-10-05 08:10] LABS: Anion Gap 14 (12-20); Blood Urea Nitrogen 24 mg/dL (9-16); Calcium 9.6 mg/dL (8.4-10.2); Chloride 99 mmol/L (96-108); Creatinine Clr Calc Pharmacy 40.8; Estimated Glomerular Filt Rate 46; Glucose Random 131 mg/dL (60-115); Magnesium 1.9 mg/dL (1.6-2.6); Phosphorus 4.9 mg/dL (2.7-4.5); Potassium 3.5 mmol/L (3.3-5.1); Sodium 142 mmol/L (135-145)
[2023-10-05 08:25] LABS: Carbon Dioxide 33 mmol/L (22-29)
[2023-10-05] MEDS: PARoxetine HCL 40 MG TABLET PO (09:19)
[2023-10-05] MEDS: Cholecalciferol (Vitamin D3) 25 MCG TABLET 50 MCG PO (09:19)
[2023-10-05] MEDS: Apixaban 5 MG TABLET PO ×2 (09:20→21:18)
[2023-10-05] MEDS: Carbidopa/Levodopa 25/100 TABLET 1 TAB PO ×3 (09:20→21:18)
[2023-10-05] MEDS: amLODIPine Besylate 10 MG TABLET PO (09:20)
[2023-10-05] MEDS: Metoprolol Tartrate 25 MG TABLET PO ×2 (09:20→21:18)
[2023-10-05] MEDS: Ferrous Sulfate 324 MG TABLET.DR PO (09:20)
[2023-10-05] MEDS: Furosemide 40 MG/4 ML VIAL IVPUSH (09:21)
[2023-10-05 11:45] LABS: Glucose, Whole Blood 360 mg/dL (60-115)
[2023-10-05] MEDS: Insulin Lispro 100 UNIT/ML 3 ML VIAL SUBCUT ×4 (11:52→21:19)
--- NOTE | 2023-10-05 12:25 | PM.PNCARD ---
Subjective Subjective Date of Service: 10/05/23 Principal diagnosis: CHF Interval history: Patient has been diuresed and currently 2 L negative balance although however says she feels better. Leg edema is improved. She denies any other cardiac symptoms. Remains in AFib with controlled ventricular response. Echocardiogram shows preserved LV ejection fraction 60 65% with mild LVH. Review of Systems Review of Systems Yes all other systems are reviewed and are negative Physical Exam Vital Signs: Last Vital Signs Temp 96.8 F 10/05/23 11:47 Pulse 65 10/05/23 11:47 Resp 18 10/05/23 11:47 BP 106/55 L 10/05/23 11:47 Pulse Ox 96 10/05/23 11:47 O2 Del Method Nasal Cannula 10/05/23 11:47 O2 Flow Rate 1 10/05/23 11:47 FiO2 100 10/04/23 01:36 Oxygen Flow Rate 15 10/04/23 00:58 BMI result Body Mass Index 33.4 Const General: cooperative, comfortable, no acute distress, alert and awake Nutritional Appearance: obese Orientation/consciousness: patient oriented x3 Neck Neck: Yes trachea midline, Yes supple and Yes no JVD Resp Effort & Inspection: normal respiratory effort Auscultation: clear to auscultation bilaterally and diminished lung sounds Cardio Jugular venous distension: no JVD Rhythm: abnormal rhythm irregularly irregular Heart sounds: S1 normal heart sound present, S2 normal heart sound present, no click, no gallops and no murmurs GI Auscultation: normal bowel sounds Skin General skin exam: no rashes or lesions noted Neuro General: patient oriented x3 and no focal motor deficits Extrem General: Yes no clubbing, cyanosis or edema Objective Labs and Meds 10/05/23 07:38 10/05/23 07:38 Lab results: Laboratory Results - last 24 hr 10/04/23 10/04/23 10/04/23 16:34 20:29 22:52 WBC RBC Hgb Hct MCV MCH MCHC RDW Plt Count MPV Immature Gran % (Auto) Neut % (Auto) Lymph % (Auto) [place] % (Auto) Eos % (Auto) Baso % (Auto) Lymph # (Auto) [place] # (Auto) Eos # (Auto) Baso # (Auto) Abs Immat Gran (auto) Absolute Neuts (auto) Absolute Nucleated RBC Nucleated RBC % (auto) VBG pH VBG pCO2 VBG pO2 VBG HCO3 VBG O2 Saturation VBG Base Excess Sodium Potassium Chloride Carbon Dioxide Anion Gap BUN Creatinine Estim Creat Clear Calc Estimated GFR POC Glucose 275 H 397 H* 313 H Random Glucose Calcium Phosphorus Magnesium 10/05/23 10/05/23 10/05/23 02:44 07:10 07:38 WBC 7.7 RBC 4.89 Hgb 15.4 Hct 46.8 MCV 95.7 MCH 31.5 MCHC 32.9 RDW 13.1 Plt Count 160 MPV 11.4 Immature Gran % (Auto) 0.5 H Neut % (Auto) 68.0 Lymph % (Auto) 17.3 L [place] % (Auto) 10.4 Eos % (Auto) 3.0 Baso % (Auto) 0.8 Lymph # (Auto) 1.3 [place] # (Auto) 0.8 Eos # (Auto) 0.2 Baso # (Auto) 0.1 Abs Immat Gran (auto) 0.04 H Absolute Neuts (auto) 5.2 Absolute Nucleated RBC 0.000 Nucleated RBC % (auto) 0.0 VBG pH VBG pCO2 VBG pO2 VBG HCO3 VBG O2 Saturation VBG Base Excess Sodium 142 Potassium 3.5 Chloride 99 Carbon Dioxide 33 H Anion Gap 14 BUN 24 H Creatinine 1.15 Estim Creat Clear Calc 40.8 Estimated GFR 46 POC Glucose 130 H 122 H Random Glucose 131 H Calcium 9.6 Phosphorus 4.9 H Magnesium 1.9 10/05/23 10/05/23 07:46 11:38 WBC RBC Hgb Hct MCV MCH MCHC RDW Plt Count MPV Immature Gran % (Auto) Neut % (Auto) Lymph % (Auto) [place] % (Auto) Eos % (Auto) Baso % (Auto) Lymph # (Auto) [place] # (Auto) Eos # (Auto) Baso # (Auto) Abs Immat Gran (auto) Absolute Neuts (auto) Absolute Nucleated RBC Nucleated RBC % (auto) VBG pH 7.42 VBG pCO2 58 VBG pO2 57 VBG HCO3 38 H VBG O2 Saturation 83.0 VBG Base Excess 11.3 Sodium Potassium Chloride Carbon Dioxide Anion Gap BUN Creatinine Estim Creat Clear Calc Estimated GFR POC Glucose 360 H* Random Glucose Calcium Phosphorus Magnesium Progress Note: A&P Assessment and plan (1) CHF exacerbation: Status: Acute Assessment and Plan: CHF exacerbation in this elderly woman probably due to dietary indiscretion. Also lack of understanding for CHF management. I discussed with her about CHF management. I think clinically today she looks euvolemic and well compensated. Would switch her to 40 mg of Lasix daily and add Jardiance 10 mg to regimen for heart failure syndrome. Continue rate control. Continue aggressive blood pressure control. Management of CHF was discussed with her at this point in time. Continue aggressive blood pressure control. Continue full oral anticoagulation with apixaban. Out of bed to chair and ambulate and oxygen desaturation study. Will sign of the case. Potentially discharge tomorrow if she is doing well clinically. Time Spent With Patient Time: Total time managing care of this patient today ____ minutes. Procedures Date of Service Date of Service: 10/05/23
--- NOTE | 2023-10-05 13:23 | HO.PM.IMPN ---
Subjective Subjective Date of Service: 10/05/23 Review of Systems Follow up CHF, tx from ICU Feeling better no sob good appetite Physical Exam Vital Signs: Vital Signs: Last Vital Signs Temp 96.8 F 10/05/23 11:47 Pulse 65 10/05/23 11:47 Resp 18 10/05/23 11:47 BP 106/55 L 10/05/23 11:47 Pulse Ox 96 10/05/23 11:47 O2 Del Method Nasal Cannula 10/05/23 11:47 O2 Flow Rate 1 10/05/23 11:47 FiO2 100 10/04/23 01:36 Oxygen Flow Rate 15 10/04/23 00:58 BMI result Body Mass Index 33.4 Appearing in no acute distress lung sounds mild rales heart regular rate rhythm, clear S1, S2 positive bowel sounds, abdomen is soft, nontender neuro patient is alert x3, no focal deficits Objective Data Active Medications Acetaminophen (Acetaminophen 325 Mg Tablet) 650 mg PO BID PRN PRN Reason: Pain, Mild (Pain Scale 1-3) Last Admin: 10/04/23 23:36 Dose: 650 mg Documented By: LEONA Alprazolam (Alprazolam 0.5 Mg Tablet) 1 mg PO TID PRN PRN Reason: anxiety Last Admin: 10/04/23 23:37 Dose: 1 mg Documented By: LEONA Comments: pt requested for anxiety Amlodipine Besylate (Amlodipine Besylate 10 Mg Tablet) 10 mg PO DAILY [facility]; Protocol Last Admin: 10/05/23 09:20 Dose: 10 mg Documented By: DEREK Apixaban (Apixaban 5 Mg Tablet) 5 mg PO BID [facility] Last Admin: 10/05/23 09:20 Dose: 5 mg Documented By: DEREK Atorvastatin Calcium (Atorvastatin Calcium 40 Mg Tablet) 40 mg PO BEDTIME [facility] Last Admin: 10/04/23 20:23 Dose: 40 mg Documented By: LEONA Carbidopa/Levodopa (Carbidopa/Levodopa 25/100 Tablet) 1 tab PO TID [facility] Last Admin: 10/05/23 09:20 Dose: 1 tab Documented By: DEREK Cyanocobalamin (Cyanocobalamin (Vitamin B-12) 1,000 Mcg/Ml Vial) 1,000 mcg IM Q28D [facility] Ferrous Sulfate (Ferrous Sulfate 324 Mg Tablet.) 324 mg PO DAILY [facility] Last Admin: 10/05/23 09:20 Dose: 324 mg Documented By: DEREK Insulin Glargine (Insulin Glargine,Hum.Rec.Anlog 100 Unit/Ml 10 Ml Vial) 10 unit SUBCUT BEDTIME [facility] Last Admin: 10/04/23 23:56 Dose: 10 unit Documented By: LEONA Insulin Human Lispro (Insulin Lispro 100 Unit/Ml 3 Ml Vial) 0 unit SUBCUT QIDACHS [facility]; Protocol Last Admin: 10/05/23 11:52 Dose: 10 unit Documented By: RODDY Levothyroxine Sodium (Levothyroxine Sodium 175 Mcg Tablet) 175 mcg PO DAILY@0600 [facility] Last Admin: 10/05/23 05:04 Dose: 175 mcg Documented By: LEONA Metoprolol Tartrate (Metoprolol Tartrate 25 Mg Tablet) 25 mg PO BID [facility]; Protocol Last Admin: 10/05/23 09:20 Dose: 25 mg Documented By: DEREK Paroxetine HCl (Paroxetine Hcl 40 Mg Tablet) 40 mg PO DAILY [facility] Last Admin: 10/05/23 09:19 Dose: 40 mg Documented By: DEREK Vitamin D (Cholecalciferol (Vitamin D3) 25 Mcg Tablet) 50 mcg PO DAILY [facility] Last Admin: 10/05/23 09:19 Dose: 50 mcg Documented By: DEREK Labs 10/05/23 07:38 10/05/23 07:38 Labs: Laboratory Results - last 24 hr 10/04/23 10/04/23 10/04/23 16:34 20:29 22:52 MCV MCH MCHC RDW Plt Count MPV Immature Gran % (Auto) Neut % (Auto) Lymph % (Auto) [place] % (Auto) Eos % (Auto) Baso % (Auto) Lymph # (Auto) [place] # (Auto) Eos # (Auto) Baso # (Auto) Abs Immat Gran (auto) Absolute Neuts (auto) Absolute Nucleated RBC Nucleated RBC % (auto) VBG pH VBG pCO2 VBG pO2 VBG HCO3 VBG O2 Saturation VBG Base Excess Anion Gap Estim Creat Clear Calc Estimated GFR POC Glucose 275 H 397 H* 313 H Random Glucose Calcium Phosphorus Magnesium 06/24/24 06/24/24 06/24/24 02:44 07:10 07:38 MCV 95.7 MCH 31.5 MCHC 32.9 RDW 13.1 Plt Count 160 MPV 11.4 Immature Gran % (Auto) 0.5 H Neut % (Auto) 68.0 Lymph % (Auto) 17.3 L [place] % (Auto) 10.4 Eos % (Auto) 3.0 Baso % (Auto) 0.8 Lymph # (Auto) 1.3 [place] # (Auto) 0.8 Eos # (Auto) 0.2 Baso # (Auto) 0.1 Abs Immat Gran (auto) 0.04 H Absolute Neuts (auto) 5.2 Absolute Nucleated RBC 0.000 Nucleated RBC % (auto) 0.0 VBG pH VBG pCO2 VBG pO2 VBG HCO3 VBG O2 Saturation VBG Base Excess Anion Gap 14 Estim Creat Clear Calc 40.8 Estimated GFR 46 POC Glucose 130 H 122 H Random Glucose 131 H Calcium 9.6 Phosphorus 4.9 H Magnesium 1.9 10/05/23 10/05/23 07:46 11:38 MCV MCH MCHC RDW Plt Count MPV Immature Gran % (Auto) Neut % (Auto) Lymph % (Auto) [place] % (Auto) Eos % (Auto) Baso % (Auto) Lymph # (Auto) [place] # (Auto) Eos # (Auto) Baso # (Auto) Abs Immat Gran (auto) Absolute Neuts (auto) Absolute Nucleated RBC Nucleated RBC % (auto) VBG pH 7.42 VBG pCO2 58 VBG pO2 57 VBG HCO3 38 H VBG O2 Saturation 83.0 VBG Base Excess 11.3 Anion Gap Estim Creat Clear Calc Estimated GFR POC Glucose 360 H* Random Glucose Calcium Phosphorus Magnesium Assessment and Plan (1) CHF exacerbation: Status: Acute Plan 78-year-old woman admitted with acute congestive heart failure. Transferred from ICU 10/04/2023 initially treated with BiPAP Acute hypoxic respiratory failure secondary to congestive heart failure with preserved ejection fraction BNP noted to be elevated at 243, chest x-ray consistent with pulmonary edema Apparently family reported that her Lasix dose was recently decreased She was initiated on IV Lasix drip Seen evaluated by Cardiology today, recommending changing to oral Lasix Currently on 1 L nasal cannula with oxygen saturation of 96%, will continue to wean off Hypertension Stable blood pressure on the lower side Continue amlodipine, hold losartan Monitor blood pressure closely. Persistent atrial fibrillation Continue Eliquis and beta-layo Diabetes mellitus type 2 Sliding scale, ADA diet Hypothyroidism Continue levothyroxine Mental health Continue home medications Hyperlipidemia Continue statin Parkinson's disease. Unspecified Continue carbidopa levodopa Obesity. BMI 33.4 Discussed importance of weight management as this may be contributing to worsening of other comorbidities DVT prophylaxis with Eliquis Full code Quality Stroke Does the patient have a stroke diagnosis?: No VTE Prior VTE?: No VTE Risk Level:: Medical - moderate - high VTE Device Contraindication: N/A - Device Ordered VTE Drug Contraindication: N/A - Med Ordered
--- NOTE | 2023-10-05 14:39 | MHC.CM.PN ---
EMR reviewed and per MD rounds, pt is not medically cleared for discharge due to management of CHF. PT recommending home with services, this CM met with pt to discuss and pt in agreement with referral being placed to [facility].
[2023-10-05 16:17] LABS: Glucose, Whole Blood 310 mg/dL (60-115)
[2023-10-05] MEDS: Furosemide 40 MG TABLET PO (17:10)
[2023-10-05 20:22] LABS: Glucose, Whole Blood 319 mg/dL (60-115)
[2023-10-05] MEDS: Atorvastatin Calcium 40 MG TABLET PO (21:18)
[2023-10-05] MEDS: ALPRAZolam 0.5 MG TABLET 1 MG PO (21:18)
[2023-10-05] MEDS: Insulin Glargine,Hum.rec.anlog 100 UNIT/ML 10 ML VIAL 10 UNIT SUBCUT (21:19)
[2023-10-05] MEDS: Acetaminophen 325 MG TABLET 650 MG PO (21:20)
[2023-10-06] VITALS (13 sets, daily range): BP systolic 107–116; BP diastolic 55–68; PULSE 55–109; RESP 17–20; TEMP 36–36.7; O2SAT 83–97; BMI 33.9; BMI 31.9
[2023-10-06] MEDS: Levothyroxine Sodium 175 MCG TABLET PO (06:03)
[2023-10-06 07:58] LABS: Glucose, Whole Blood 216 mg/dL (60-115)
[2023-10-06] MEDS: Empagliflozin 10 MG TABLET PO (08:43)
[2023-10-06] MEDS: Ferrous Sulfate 324 MG TABLET.DR PO (08:43)
[2023-10-06] MEDS: Carbidopa/Levodopa 25/100 TABLET 1 TAB PO ×2 (08:43→14:13)
[2023-10-06] MEDS: PARoxetine HCL 40 MG TABLET PO (08:43)
[2023-10-06] MEDS: amLODIPine Besylate 10 MG TABLET PO (08:43)
[2023-10-06] MEDS: Cholecalciferol (Vitamin D3) 25 MCG TABLET 50 MCG PO (08:43)
[2023-10-06] MEDS: Insulin Lispro 100 UNIT/ML 3 ML VIAL SUBCUT ×4 (08:44→12:30)
[2023-10-06] MEDS: Metoprolol Tartrate 25 MG TABLET PO (08:44)
[2023-10-06] MEDS: Apixaban 5 MG TABLET PO (08:44)
[2023-10-06] MEDS: Furosemide 40 MG TABLET PO (08:44)
--- NOTE | 2023-10-06 11:25 | P.CDIM_ITS ---
PROVIDER RESPONSE TEXT: To clarify, the appropriate diagnosis supported by the clinical indicators: CKD, please provide stage: 3a QUERY TEXT: PHYSICIAN'S DOCUMENTATION REQUEST Date of Query: 10/06/2023 08:01 AM EDT Patient Name: Bianca Hunt Admit Date: 10/04/2023 Dear Malissa Reyes, A review of the medical record indicates additional documentation may be needed. Please review below and update the documentation accordingly. Clinical Indicators: ICU H&P dated 10/03: Chronic kidney disease BUN 20, Creatinine 1.26 at baseline. Will closely monitor renal indices due to diuresing. PMH: CKD Please clarify which of the following accurately represents the patient's renal status: CKD, please provide stage 1, 2, 3a, 3b, 4 or other Other (explain) Clinically unable to determine (explain) Thank you, Yajaira Casas, CCS, CDIS Use of terms such as suspected, likely, concern for, or probable (associated with a specific diagnosi s that is being evaluated, monitored, or treated as if it exists) are acceptable and can be coded in the inpatient se tting, when documented at the time of discharge. Please use your independent medical judgment in providing your response. THIS QUERY IS PART OF THE PERMANENT MEDICAL RECORD
--- NOTE | 2023-10-06 11:25 | P.CDIM_ITS ---
PROVIDER RESPONSE TEXT: To clarify, the appropriate diagnosis supported by the clinical indicators: Diabetes mellitus Type 2 with hyperglycemia QUERY TEXT: PHYSICIAN'S DOCUMENTATION REQUEST Date of Query: 10/06/2023 09:15 AM EDT Patient Name: Bianca Hunt Admit Date: 10/04/2023 Dear Malissa Reyes, A review of the medical record indicates additional documentation may be needed. Please review below and update the documentation accordingly. Clinical Indicators: LABS: POC glucose 397 H 360 H 216 Insulin sliding scale, ADA diet Based on the above, is there a diagnosis that correlates with these lab findings: Diabetes mellitus Type 2 with hyperglycemia Other Other (explain) Clinically unable to determine (explain) Thank you, Yajaira Casas, CCS, CDIS Use of terms such as suspected, likely, concern for, or probable (associated with a specific diagnosi s that is being evaluated, monitored, or treated as if it exists) are acceptable and can be coded in the inpatient se tting, when documented at the time of discharge. Please use your independent medical judgment in providing your response. THIS QUERY IS PART OF THE PERMANENT MEDICAL RECORD
--- NOTE | 2023-10-06 11:30 | P.DS_ITS ---
DS: Providers Provider Date of Service: 10/06/23 Date of admission: 10/04/23 02:23 Primary care physician: Reji Molina MD Consults: 10/04/23 11:32 Consult to Cardiology Routine Consulting Provider: [facility] [place] [facility] Reason for consultation: CHF, tx from icu DS: Diagnosis Discharge Diagnosis (1) CHF exacerbation: Status: Acute DS: Summary Hospital Course Hospital Course: History and physical as per admitting provider. The patient is a 78-year-old female with a past medical history of? diastolic heart failure,? atrial fibrillation (on Eliquis), coronary artery disease, Parkinson?s, hypertension,? diabetes mellitus, hyperlipidemia, chronic kidney disease,? and hypothyroidism? who presented to the emergency department with worsening dyspnea.? EMS reported the patient was satting 77% on room air,? requiring 15 L via OxyMask. On arrival to the emergency department? patient was placed on BiPAP due to increased work of breathing Laboratory data was significant for BUN 20, creatinine 1.26, BNP 243 Imaging:?Chest x-ray:? consistent with pulmonary edema Patient will be admitted to ICU for management of acute hypoxic respiratory failure? from pulmonary edema requiring BiPAP 78-year-old woman treated for acute hypoxic respiratory failure secondary to congestive heart failure with preserved ejection fraction. Initial BNP was noted to be 243 and chest x-ray was consistent with pulmonary edema. Her family had reported that her Lasix dose was recently decreased. She was initiated on IV Lasix drip and placed on BiPAP in the ICU. She was subsequently transferred to the medical floor within 24 hours. She was seen evaluated by Cardiology who recommended patient be switched back to oral Lasix. Patient had been weaned off oxygen and had an home oxygen evaluation that showed she did not need home oxygen. She was seen evaluated by Physical therapy who recommended home with PT. Hypertension. Stable blood pressure. Continue amlodipine, losartan held during hospitalization but may be continued at home. Persistent atrial fibrillation. Continue Eliquis and beta-layo Diabetes mellitus continue home medications Hypothyroidism. Continue levothyroxine Hyperlipidemia. Continue statin Parkinson's disease. Unspecified. Continue carbidopa levodopa Obesity. BMI 33.4. Discussed importance of weight management as this may be contributing to worsening of other comorbidities Time Attestation Discharge Coordination Time (in mins): 40 Quality: Safe Use of Opioids Does Pt have an Active Cancer Diagnosis on the Problem List?: No Quality: Stroke Does the patient have a stroke diagnosis?: No Physical Exam Vital Signs: Vital Signs: Last Vital Signs Temp 96.8 F 10/06/23 07:45 Pulse 63 10/06/23 08:44 Resp 18 10/06/23 07:45 BP 114/56 L 10/06/23 08:44 Pulse Ox 95 10/06/23 09:32 O2 Del Method Nasal Cannula 10/06/23 09:32 O2 Flow Rate 1 10/06/23 09:32 FiO2 100 10/04/23 01:36 Oxygen Flow Rate 15 10/04/23 00:58 BMI result Body Mass Index 31.9 Appearing in no acute distress head is normocephalic atraumatic eyes pupils are PERRLA sclera is anicteric mouth throat mucous membranes are intact and moist neck is supple no lymphadenopathy, no JVD noted lung sounds are clear to auscultation heart regular rate rhythm, clear S1, S2 positive bowel sounds, abdomen is soft, nontender neuro patient is alert x3, no focal deficits DS: Data Data Completed and Pending Labs on day of discharge: Laboratory Results - last 24 hr 10/05/23 10/05/23 10/05/23 11:38 16:08 20:02 POC Glucose 360 H* 310 H 319 H 10/06/23 07:49 POC Glucose 216 H Discharge Plan Discharge Anticipated Discharge Date/Time: 10/06/23 11:26 Patient Disposition: Home Health Service Discharge Diagnosis: Acute respiratory failure secondary to congestive heart failure with preserved ejection fraction Referrals: [facility] [Outside] - 1 Week Reji Molina MD [Primary Care Provider] - 1 Week Discharge Medications: New Jardiance 10 mg Tablet 10 mg PO DAILY Qty: 60 0RF Continued (DME) pen needle, diabetic 31 gauge x 3/16 needle See Rx Instructions subcut DIRECTED Qty: 100 11RF Rx Instructions: 4x daily cholecalciferol (vitamin D3) 50 mcg (2,000 unit) capsule 50 mcg PO DAILY 30 Days Qty: 90 3RF atorvastatin 40 mg tablet 40 mg PO BEDTIME Qty: 30 0RF Eliquis 5 mg tablet 5 mg PO BID Qty: 180 3RF alprazolam 1 mg Tablet 1 mg PO TID losartan 100 mg Tablet 100 mg PO DAILY metoprolol tartrate 25 mg Tablet 25 mg PO BID carbidopa-levodopa 25-100 mg tablet 1 tab PO TID paroxetine HCl 40 mg tablet 40 mg PO DAILY acetaminophen 500 mg Tablet 1,000 mg PO BID PRN (Reason: Pain) ferrous sulfate 325 mg (65 mg iron) Tablet 325 mg PO DAILY (DME) lancets Misc See Rx Instructions .ROUTE TID Qty: 100 Rx Instructions: As directed cyanocobalamin (vitamin B-12) 1,000 mcg/mL solution 1,000 mcg IM Q28D Patient Comments: per patient and daughter, last injection was last week, they are unsure what day. (DME) Contour Next Test Strips Strip See Rx Instructions .Route Rx Instructions: As directed 3 times a day (DME) 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 meter [Contour Next One Meter] Misc See Rx Instructions .Route Rx Instructions: As directed (DME) FreeStyle Sanjeev 2 [place] Misc See Rx Instructions .ROUTE .MEDSUPPLY Qty: 1 0RF Rx Instructions: As directed (DME) FreeStyle Sanjeev 2 Sensor Kit See Rx Instructions .ROUTE .MEDSUPPLY Qty: 2 11RF Rx Instructions: Once every 14 days Tresiba FlexTouch U-100 100 unit/mL (3 mL) insulin pen 90 unit subcut DAILY furosemide [Lasix] 20 mg tablet 20 mg PO DAILY levothyroxine 175 mcg tablet 175 mcg PO DAILY amlodipine 5 mg tablet 10 mg PO DAILY Victoza 3-Kvng 0.6 mg/0.1 mL (18 mg/3 mL) pen injector 1.8 mg subcut DAILY Discharge Orders: Discharge Order (Routine); Ordered 10/06/23 Ordered By: Malissa Reyes Diet: Advance to usual diet Activity on Discharge: As tolerated Stand Alone Forms: Patient Portal Discharge page Print Language: Faroese Care Plan Goals: Follow-up with cardiology as needed He has been started on Jardiance for congestive heart failure, continue Lasix 20 mg daily Health Concerns: Acute respiratory failure secondary to congestive heart failure with preserved ejection fraction Plan of Treatment: Follow-up with primary care provider as needed Take all medications as prescribed Assessment: See discharge summary
--- NOTE | 2023-10-06 11:33 | W.MHC.F2F ---
Service Date Service Date: 10/06/23 Encounter Date of encounter: 10/06/23 Reasons for Services Signs and symptoms assessed: Acute congestive heart failure exacerbation Weakness Reason for physical therapy: home safety and mobility Homebound: Leaving the home is medically contraindicated at this time without the asist of a device and/or another person due th the listed conditions above and below. Reason homebound: unsteady gait / fall risk Certification: Based on the above findings, I certify that this patient is confined to the home and needs intermittent senior living care, physical therapy and/or speech therapy, or continues to need occupational therapy. The patient is under my care, and I have initiated the establishment of the plan of care. The patient will be followed by a physician who will periodically review the plan of care. Time Spent With Patient Time: Total time managing care of this patient today ____ minutes.
[2023-10-06 11:52] LABS: Glucose, Whole Blood 248 mg/dL (60-115)
[2023-10-06 16:09] LABS: Glucose, Whole Blood 336 mg/dL (60-115)
== END 2023-10-06 18:12 | DRG 291 ==
LOC: HO.ED 02:13 → HO.EDOVER 02:32 → HO.ICU 02:39 → HO.IMC 14:33
PROVIDERS: Internal Medicine Pulmonary Disease; Admitting Provider Registered Nurse Community Health; Emergency Provider Student in an Organized Health Care Education/Training Program; PCP Internal Medicine; Visit Provider Nurse Practitioner Acute Care
DX: I13.0 Hypertensive heart and chronic kidney disease with heart failure and stage 1 through stage 4 chronic kidney disease, or unspecified chronic kidney disease (principal); I50.33 Acute on chronic diastolic (congestive) heart failure; J96.01 Acute respiratory failure with hypoxia; I48.19 Other persistent atrial fibrillation; N18.31 Chronic kidney disease, stage 3a; E11.22 Type 2 diabetes mellitus with diabetic chronic kidney disease; E11.65 Type 2 diabetes mellitus with hyperglycemia; G20.A1 Parkinson's disease without dyskinesia, without mention of fluctuations; I25.10 Atherosclerotic heart disease of native coronary artery without angina pectoris; E66.9 Obesity, unspecified; Z68.33 Body mass index [BMI] 33.0-33.9, adult; I27.20 Pulmonary hypertension, unspecified; Z20.822 Contact with and (suspected) exposure to COVID-19; Z87.891 Personal history of nicotine dependence; Z79.4 Long term (current) use of insulin; Z79.01 Long term (current) use of anticoagulants; Z79.85 Long-term (current) use of injectable non-insulin antidiabetic drugs; Z79.890 Hormone replacement therapy; Z79.899 Other long term (current) drug therapy
CPT/HCPCS: 0241U; 36415; 71045; 80048; 80053; 82040; 82803; 82947; 83735; 83880; 84100; 84484; 85025; 93005; 93306; 97116; 97161; 99285; J1940; Q9957

== ENCOUNTER 2023-10-04 02:23 | Outpatient (BNV) | payer MEDICARE, SELFPAY | END 2023-10-05 07:00 | PROVIDERS: Admitting Provider Registered Nurse Community Health; Emergency Provider Student in an Organized Health Care Education/Training Program; PCP Internal Medicine; Visit Provider Internal Medicine Cardiovascular Disease | DX: I50.9 Heart failure, unspecified (principal) | CPT/HCPCS: 93306 ==

== ENCOUNTER → 2023-10-04 02:23 | Outpatient (BNV) | payer MEDICARE, SELFPAY | PROVIDERS: Admitting Provider Registered Nurse Community Health; Emergency Provider Student in an Organized Health Care Education/Training Program; PCP Internal Medicine; Visit Provider Nurse Practitioner Acute Care | DX: I50.9 Heart failure, unspecified (principal) | CPT/HCPCS: 99232; 99239; 99499; G0180 ==

== ENCOUNTER → 2023-10-04 02:23 | Outpatient (BNV) | payer MEDICARE, SELFPAY | PROVIDERS: Admitting Provider Registered Nurse Community Health; Emergency Provider Student in an Organized Health Care Education/Training Program; PCP Internal Medicine; Visit Provider Registered Nurse Community Health | DX: I50.9 Heart failure, unspecified (principal); J96.01 Acute respiratory failure with hypoxia; I50.30 Unspecified diastolic (congestive) heart failure; I12.9 Hypertensive chronic kidney disease with stage 1 through stage 4 chronic kidney disease, or unspecified chronic kidney disease; N18.9 Chronic kidney disease, unspecified | CPT/HCPCS: 99291 ==

== ENCOUNTER → 2023-10-04 02:23 | Outpatient (BNV) | payer MEDICARE, SELFPAY | PROVIDERS: Admitting Provider Registered Nurse Community Health; Emergency Provider Student in an Organized Health Care Education/Training Program; PCP Internal Medicine; Visit Provider Internal Medicine Cardiovascular Disease | DX: I50.9 Heart failure, unspecified (principal) | CPT/HCPCS: 93010; 99223; 99232 ==

== ENCOUNTER 2023-10-20 12:58 | Outpatient (AMB) | payer MEDICARE, SELFPAY ==
--- NOTE | 2023-10-20 13:10 | MHC.OFFVIS ---
Vital Signs 10/20/23 13:13 Height 5 ft 2 in Weight 174 lb 2.643 oz BMI 31.9 BP 114/62 Blood Pressure Location Rt brachial Position Sitting Pulse 86 Pulse Source Pulse Oximeter Intake Visit Reasons: T2DM/CONFIRMED Intake Note: NEW Patient presents today to established treatment for DM TYPE 2: Most recent Diabetic Eye Exam: 09/2023 Most recent Podiatry Exam: 2023 Most recent HbA1c: 7.8%, 10/20/2023 Random Glucose- 146mg/dL, Today Campground Cleaning Attendant Required: No Accompanied by: Daughter Allergies baclofen Adverse Reaction (Unknown, Verified 10/04/23 01:05) CONFUSION, OUT OF IT oxycodone [From Percocet] Adverse Reaction (Unknown, Verified 10/04/23 01:05) NAUSEA HPI Comments Details: Patient is a 78 year-old female with DM type 2 who presents for management of diabetes. Patient was last seen by Endo CHIEF PILOT 2 years ago. Today presents with daughter Alyson who assists with patients medication management. Past medical history: DM2, HTN, HLD, CKD3, CHF Micro and macrovascular complications: nephropathy, CAD Diabetes medications: Tresiba 80 units. She previously was on short-acting insulin which was stopped by his PCP because she was not remembering to take it. She was recently started on Jardiance 10 mg for congestive heart failure. She is using a Avnera Sanjeev 2 Average blood sugar for the last 14 days is 179. With a GME my of 7.6%. Very high readings 19% of the time, high 23% of the time, in target range 51% of the time, low 6% of the time. Readings have decreased over the past week since starting on Jardiance. She has had no side effects with the Jardiance. She is running high 70s some mornings but no other lows. Symptoms reported: no numbness, tingling, cramping in lower extremities Hyperglycemia: asymptomatic HAS seen dm educ in the past Cyber Security Specialist: every 3 months Dental exam: regular Ophthalmology evaluation: summer 2020 Other specialists: Fulfillment Representative, Machinery Repair Maintenance Supervisor, Neurologist [facility] Medical History (Updated 10/14/23 @ 00:02 by Background Daemon) Pulmonary hypertension Atrial fibrillation Persistent atrial fibrillation CKD (chronic kidney disease) CAD (coronary artery disease) (HFpEF) heart failure with preserved ejection fraction Vitamin D deficiency HLD (hyperlipidemia) T2DM (type 2 diabetes mellitus) Acute exacerbation of congestive heart failure Hypertension Parkinson disease Hypothyroid Diabetes Surgical History Hx of cardiac cath (~01/2017) Hx of carpal tunnel repair Hx of knee surgery Hx of hysterectomy Family History Father No problems noted. Mother T2DM (type 2 diabetes mellitus) Brother T2DM (type 2 diabetes mellitus) Social History Household Members: None Housing: House Do you presently have visiting nurse or other home services: No Alcohol intake: current Alcohol intake frequency: holidays/special occasions only Alcohol type: wine Patient Tobacco Use Status: Former Tobacco user Tobacco use type: Cigarette service: No Current occupational status: retired Physical Exam Vital Signs: Last Vital Signs Pulse 86 10/20/23 13:13 BP 114/62 10/20/23 13:13 BMI result Body Mass Index 31.9 Const General: cooperative and healthy appearing Nutritional Appearance: overweight Neck Neck: Yes normal visual inspection Thyroid: Thyroid normal Extrem Other: Visual exam of foot performed. No ulcerations or open lesions. No onchomycosis, no callouses. Sensation intact to monofilament exam. Vibratory sensation is normal with 128 Hz tuning fork. Results AMB Hemoglobin A1c AMB Hemoglobin A1c 7.8 % Last Edit by CELINA Montes on 10/20/23 13:37 Results Reviewed Results Reviewed: Laboratory Tests 05/02/23 10/04/23 10/04/23 05:52 04:19 22:52 Sodium 139 Potassium 4.3 BUN 20 H Creatinine 0.83 1.13 Estim Creat Clear Calc 54.6 41.6 Estimated GFR > 60 47 POC Glucose 313 H Hgb A1c (Clinic) Calcium 9.8 Phosphorus 3.4 Magnesium 2.1 10/20/23 13:11 Sodium Potassium BUN Creatinine Estim Creat Clear Calc Estimated GFR POC Glucose Hgb A1c (Clinic) 7.8 H Calcium Phosphorus Magnesium Assessment & Plan Assessment & Plan (1) T2DM (type 2 diabetes mellitus): Code(s): E11.9 - Type 2 diabetes mellitus without complications Category: Medical Qualifiers: Diabetes mellitus director long term care insulin use: with director long term care use Diabetes mellitus complication status: with kidney complications Diabetes mellitus complication detail: with chronic kidney disease Plan: Improving diabetic control on Jardiance 10 mg. She has been having some readings in the 70s in the morning. We will decrease Tresiba to 70 units daily. Both she and her daughter were advised of all side effects of SGLT2 inhibitors. The patient was counseled to always carry a source of sugar and on the rule of 15's: Take 3 glucose tablets and repeat again in 15 minutes if blood sugar is not in normal range. Continue to repeat every 15 minutes until blood sugar is normal. Who has the daughter and patient were advised to contact our office if she has any additional lows in the morning and can further reduce insulin to 64 units. We will switch her from freestyle to 2 freestyle 3. She will come in for training for this. I have asked her to have blood work done in 3 weeks' time. (I contacted the patient after the visit to ask her to have this done.) Orders: Orders AMB Hemoglobin A1c Today E11.9 - Type 2 diabetes mellitus without complications Coding Level of Care Code Est Pt Level 5 (45513) Complex EM visit Add On G2211 Diagnoses T2DM (type 2 diabetes mellitus) E11.9 Diabetes mellitus director long term care insulin use: with care home use Diabetes mellitus complication status: with kidney complications Diabetes mellitus complication detail: with chronic kidney disease Time Spent (min) 45 Comment Time spent reviewing labs, reviewing previous provider notes, face to face and documenting
[2023-10-20 13:13] VITALS: BP 114/62; PULSE 86; BMI 31.9
[2023-10-20 16:39] LABS: Glucose, Whole Blood 144 mg/dL (60-115)
== END 2023-10-20 14:08 | disposition home or self-care (01) ==
PROVIDERS: PCP Internal Medicine; Visit Provider Nurse Practitioner Adult Health
DX: E11.9 Type 2 diabetes mellitus without complications (principal)
CPT/HCPCS: 99215; G2211

== ENCOUNTER → 2023-10-20 12:58 | Outpatient (BNVA) | payer MEDICARE, SELFPAY | PROVIDERS: PCP Internal Medicine; Visit Provider Nurse Practitioner Adult Health | DX: E11.22 Type 2 diabetes mellitus with diabetic chronic kidney disease (principal); N18.30 Chronic kidney disease, stage 3 unspecified; Z79.84 Long term (current) use of oral hypoglycemic drugs; Z79.85 Long-term (current) use of injectable non-insulin antidiabetic drugs | CPT/HCPCS: 82947; 83036; 99212 ==

== ENCOUNTER 2023-10-21 11:53 | Outpatient (REF) | payer MEDICARE, SELFPAY ==
[2023-10-21 13:57] LABS: B Type Natriuretic Peptide 236 pg/mL (<100)
[2023-10-21 14:53] LABS: Alanine Aminotransferase 26 U/L (0-31); Albumin Level 4.3 g/dL (3.5-5.0); Alkaline Phosphatase 116 U/L (39-117); Anion Gap 16 (12-20); Aspartate Amino Transferase 28 U/L (5-31); Bilirubin Total 0.9 mg/dL (0.0-1.0); Blood Urea Nitrogen 30 mg/dL (9-16); Calcium 9.6 mg/dL (8.4-10.2); Carbon Dioxide 28 mmol/L (22-29); Chloride 104 mmol/L (96-108); Estimated Glomerular Filt Rate 32; Glucose Random 53 mg/dL (60-115); Sodium 144 mmol/L (135-145); Total Protein 7.7 g/dL (6.5-8.0)
== END 2023-10-21 11:54 | disposition home or self-care (01) ==
LOC: HO.HMGCLDS 11:53
PROVIDERS: Internal Medicine Hypertension Specialist; PCP Internal Medicine; Visit Provider Internal Medicine Cardiovascular Disease
DX: I50.9 Heart failure, unspecified (principal); N18.9 Chronic kidney disease, unspecified; I48.20 Chronic atrial fibrillation, unspecified
CPT/HCPCS: 36415; 80053; 83880

== ENCOUNTER 2023-11-03 13:29 | Outpatient (AMB) | payer MEDICARE, SELFPAY ==
[2023-11-03 13:30] VITALS: BP 102/70; PULSE 71; O2SAT 93; BMI 31.6
--- NOTE | 2023-11-03 13:30 | HO.NEPHOV ---
Vital Signs 11/03/23 13:30 Height 5 ft 2 in Weight 173 lb BMI 31.6 BP 102/70 Blood Pressure Location Lt brachial Position Sitting Pulse 71 Pulse Source Pulse Oximeter Pulse Oximetry (%) 93 Oxygen Delivery Method Room Air Intake Visit Reasons: heart failure preserved ejection fraction/ 4 M FU Assistant Media Planner Required: No Accompanied by: Self / Same As Patient Allergies baclofen Adverse Reaction (Unknown, Verified 11/03/23 13:32) CONFUSION, OUT OF IT oxycodone [From Percocet] Adverse Reaction (Unknown, Verified 11/03/23 13:32) NAUSEA HPI Comments Details: 78-year-old woman with longstanding hypertension diabetes mellitus with CKD. She is here for routine follow-up. REcently hospitalized for CHF Now on LAsix Supposed ot take 40 mg QD But she has been taking 2 tabs a day Cr up to 1.5 from 1.2 [facility] Medical History (Updated 11/03/23 @ 13:50 by Roberto Murphy MD) CKD (chronic kidney disease) Pulmonary hypertension Atrial fibrillation Persistent atrial fibrillation CAD (coronary artery disease) (HFpEF) heart failure with preserved ejection fraction Vitamin D deficiency HLD (hyperlipidemia) T2DM (type 2 diabetes mellitus) Acute exacerbation of congestive heart failure Hypertension Parkinson disease Hypothyroid Diabetes Surgical History Hx of cardiac cath (~01/2017) Hx of carpal tunnel repair Hx of knee surgery Hx of hysterectomy Family History Father No problems noted. Mother T2DM (type 2 diabetes mellitus) Brother T2DM (type 2 diabetes mellitus) Social History Household Members: None Housing: House Do you presently have visiting nurse or other home services: No Alcohol intake: current Alcohol intake frequency: holidays/special occasions only Alcohol type: wine Patient Tobacco Use Status: Former Tobacco user Tobacco use type: Cigarette service: No Current occupational status: retired Physical Exam Vital Signs: Last Vital Signs Pulse 71 11/03/23 13:30 BP 102/70 11/03/23 13:30 Pulse Ox 93 11/03/23 13:30 Oxygen Delivery Method Room Air 11/03/23 13:30 BMI result Body Mass Index 31.6 Const General: comfortable; No acute distress Orientation/consciousness: patient oriented x3 Eyes General: appearance normal, both eyes and all related structures Visual Goodwin: normal visual goodwin by confrontation Neck Neck: Yes supple and Yes no JVD Resp Effort & Inspection: normal respiratory effort and respiratory effort not decreased Auscultation: rhonchi Cardio Palpation: no palpable S3 and no palpable S4 Heart sounds: no rubs GI Inspection: Yes normal to inspection Palpation (GI): Soft to palpation Percussion: Yes normal to percussion Auscultation: normal bowel sounds General: Yes no CVA tenderness Back/Spine/Pelvis Back: no CVA tenderness Skin General skin exam: no petechiae and no purpura Neuro General: patient oriented x3 and no focal motor deficits Extrem General: No clubbing and No edema Results Reviewed Nephrology Results: Hgb 15.4 g/dl (12.0-16.0) 10/05/23 WBC 7.7 X10*3/uL (4.8-10.8) 10/05/23 Plt Count 160 X10*3/uL (160-400) 10/05/23 Sodium 144 mmol/L (135-145) 10/21/23 Potassium 4.0 mmol/L (3.3-5.1) 10/21/23 Chloride 104 mmol/L (96-108) 10/21/23 Carbon Dioxide 28 mmol/L (22-29) 10/21/23 BUN 30 mg/dL (9-16) H 10/21/23 Creatinine 1.56 mg/dL (0.5-1.4) H 10/21/23 Calcium 9.6 mg/dL (8.4-10.2) 10/21/23 Phosphorus 4.9 mg/dL (2.7-4.5) H 10/05/23 Assessment & Plan Assessment & Plan (1) CKD (chronic kidney disease): Comment: Mild CKD in a setting of hypertension diabetes mellitus renal function stay Code(s): N18.9 - Chronic kidney disease, unspecified Category: Medical Plan: Goal is to slow the progressionof the kidney disease Maintain A1c less than 7% Maintain blood pressure less than 130/80 Continue to avoid nephrotoxic agents including NSAIDs. Superimposed PREETI due to hypoperfusion Now on LAsix 40 mg PO BID Decrease to 40 mg DAILY (2) (HFpEF) heart failure with preserved ejection fraction: Code(s): I50.30 - Unspecified diastolic (congestive) heart failure Category: Medical Plan: Well compensated On Lasix Follow-up with cardiology as needed Discussed low-salt (3) Hypertension: Code(s): I10 - Essential (primary) hypertension Category: Medical Qualifiers: Hypertension type: unspecified Qualified Code(s): I10 - Essential (primary) hypertension Plan: Blood pressure well controlled No changes were made to her antihypertensive medications Orders: Orders Basic Metabolic Panel 3 Months N18.9 - Chronic kidney disease, unspecified Coding Level of Care Code Est Pt Level 4 (48102) Diagnoses CKD (chronic kidney disease) N18.9 (HFpEF) heart failure with preserved ejection fraction I50.30 Hypertension, unspecified type I10 Hypertension type: unspecified
== END 2023-11-03 13:55 | disposition home or self-care (01) ==
PROVIDERS: PCP Internal Medicine; Visit Provider Internal Medicine Hypertension Specialist
DX: I12.9 Hypertensive chronic kidney disease with stage 1 through stage 4 chronic kidney disease, or unspecified chronic kidney disease (principal); N18.9 Chronic kidney disease, unspecified; I50.30 Unspecified diastolic (congestive) heart failure
CPT/HCPCS: 99214

== ENCOUNTER → 2023-11-03 13:29 | Outpatient (BNVA) | payer MEDICARE, SELFPAY | PROVIDERS: PCP Internal Medicine; Visit Provider Internal Medicine Hypertension Specialist | DX: I13.0 Hypertensive heart and chronic kidney disease with heart failure and stage 1 through stage 4 chronic kidney disease, or unspecified chronic kidney disease (principal); E11.22 Type 2 diabetes mellitus with diabetic chronic kidney disease; N18.9 Chronic kidney disease, unspecified; I50.30 Unspecified diastolic (congestive) heart failure; Z79.899 Other long term (current) drug therapy | CPT/HCPCS: 99212 ==

== ENCOUNTER 2023-11-06 11:41 | Outpatient (REF) | payer MEDICARE, SELFPAY | END 2023-11-06 11:42 | disposition home or self-care (01) | LOC: HO.MAMMO 11:41 | PROVIDERS: PCP Internal Medicine; Visit Provider Internal Medicine | DX: Z12.31 Encounter for screening mammogram for malignant neoplasm of breast (principal) | CPT/HCPCS: 77063; 77067 ==

== ENCOUNTER → 2023-11-06 12:00 | Outpatient (BNV) | payer MEDICARE, SELFPAY | PROVIDERS: PCP Internal Medicine; Visit Provider Radiology Diagnostic Radiology | DX: Z12.31 Encounter for screening mammogram for malignant neoplasm of breast (principal) | CPT/HCPCS: 77063; 77067 ==

== ENCOUNTER 2023-12-23 09:29 | Outpatient (REF) | payer MEDICARE, SELFPAY ==
[2023-12-23 13:42] LABS: MANUAL DIFF FLAG NO
[2023-12-23 14:06] LABS: Basophils Absolute Auto 0.1 X10*3/uL (0.0-0.2); Basophils Percent Auto 0.9 % (0-2); Eosinophils Absolute Auto 0.2 X10*3/uL (0.0-0.4); Eosinophils Percent Auto 2.8 % (0-4); Hematocrit 53.2 % (37.0-47.0); Imm Gran Abs Auto 0.04 X10*3/uL (0.00-0.03); Imm Gran Pct Auto 0.7 % (0.0-0.4); Lymphocytes Absolute Auto 1.2 X10*3/uL (1.2-4.9); Lymphocytes Percent Auto 21.7 % (20-40); Mean Corpuscular Volume 96.9 fL (80.0-98.0); Mean Platelet Volume 12.2 fL (9.4-12.3); Monocytes Absolute Auto 0.6 X10*3/uL (0.1-1.2); Monocytes Percent Auto 11.3 % (2-11); Neutrophils Absolute Auto 3.4 x10*3/uL (2.0-8.3); Neutrophils Percent Auto 62.6 % (45-73); Platelet Count 195 X10*3/uL (160-400); Red Blood Count 5.49 X10*6/uL (4.20-5.50); Red Cell Distribution Width 13.2 % (11.0-16.0); White Blood Count 5.4 X10*3/uL (4.8-10.8)
[2023-12-23 14:46] LABS: Erythrocyte Sedimentation Rate 7 MM/HR (0-20)
[2023-12-23 14:47] LABS: C Reactive Protein 0.47 mg/dL (< or = 0.50)
== END 2023-12-23 09:30 | disposition home or self-care (01) ==
LOC: HO.HMGCLDS 09:29
PROVIDERS: PCP Internal Medicine; Visit Provider Podiatrist
DX: M10.9 Gout, unspecified (principal)
CPT/HCPCS: 36415; 84550; 85025; 85652; 86140

== ENCOUNTER 2023-12-23 09:51 | Outpatient (AMB) | payer MEDICARE, SELFPAY ==
--- NOTE | 2023-12-23 09:56 | MHC.OFFWIV ---
Intake Vital Signs 12/23/23 09:57 Height 5 ft 2 in Weight 171 lb BMI 31.3 BP 114/74 Blood Pressure Location Rt brachial Position Sitting Pulse 53 Pulse Source Pulse Oximeter Temp 97.6 F Temp Source Oral Pulse Oximetry (%) 95 Oxygen Delivery Method Room Air Intake Visit Reasons: EP Gout under LT big toe? Intake Note: pt c/o ? gout LT big toe. Started 2 weeks ago Patient Tobacco Use Status: Former Tobacco user Allergies baclofen Adverse Reaction (Unknown, Verified 12/23/23 10:02) CONFUSION, OUT OF IT oxycodone [From Percocet] Adverse Reaction (Unknown, Verified 12/23/23 10:02) NAUSEA Do you need a note to return to daycare/school/sports/work: No HPI HPI Comments History of Present Illness Details Patient is a 78-year-old female with a past medical history of CKD diabetes, CHF, AFib, pulmonary hypertension, Parkinson's disease and hypothyroid complaining 2 weeks of left great toe pain. She states that it is exquisitely tender and even hurts when this sheets touch her big toe. She states it is more swollen than the other toe. She has been trying to take Tylenol using Biofreeze and ice without much improvement. [facility] Medical History (Updated 12/23/23 @ 10:21 by Cira Lentz PA-C) CKD (chronic kidney disease) Pulmonary hypertension Atrial fibrillation Persistent atrial fibrillation CAD (coronary artery disease) (HFpEF) heart failure with preserved ejection fraction Vitamin D deficiency HLD (hyperlipidemia) T2DM (type 2 diabetes mellitus) Acute exacerbation of congestive heart failure Hypertension Parkinson disease Hypothyroid Diabetes Surgical History Hx of cardiac cath (~01/2017) Hx of carpal tunnel repair Hx of knee surgery Hx of hysterectomy Family History Father No problems noted. Mother T2DM (type 2 diabetes mellitus) Brother T2DM (type 2 diabetes mellitus) Social History Household Members: None Housing: House Do you presently have visiting nurse or other home services: No Alcohol intake: current Alcohol intake frequency: holidays/special occasions only Alcohol type: wine Patient Tobacco Use Status: Former Tobacco user Tobacco use type: Cigarette service: No Current occupational status: retired Review of Systems Const All systems reviewed & are unremarkable except as noted in HPI and below Physical Exam Vital Signs: Last Vital Signs Temp 97.6 F 12/23/23 09:57 Pulse 53 12/23/23 09:57 BP 114/74 12/23/23 09:57 Pulse Ox 95 12/23/23 09:57 Oxygen Delivery Method Room Air 12/23/23 09:57 BMI result Body Mass Index 31.3 Const General: cooperative, healthy appearing, comfortable and no acute distress Orientation/consciousness: patient oriented x3 HEENT Head: Yes normal to inspection General nose exam: Normal external nose present Face and sinus: Yes normal facial exam Eyes General: appearance normal, both eyes and all related structures Neck Neck: Yes normal visual inspection Resp Effort & Inspection: normal respiratory effort and able to speak in complete sentences Neuro General: patient oriented x3 Extrem Other: exquisite tenderness, erythema and swelling of left great toe MPT, full ROM, normal capillary refill; no ecchymosis, no signs of infection noted Assessment & Plan Assessment & Plan (1) Acute gout: Code(s): M10.9 - Gout, unspecified Qualifiers: Gout etiology: due to renal impairment Gout site: toe Laterality: left Qualified Code(s): M10.372 - Gout due to renal impairment, left ankle and foot Plan: According to patient's records, her GFR was 32 in October of 2023, per up-to-date, no dose adjustment necessary for colchicine treatment of gout. Explained to patient how to take the medication, recommended she not take any NSAIDs with it because of her kidney disease, recommended she just rest it until it feels better to avoid falling. Plan See above Medications: New colchicine On day 1, take 2 tablets followed by 1 tablet 1 hour later. Do not exceed 3 tablets in 24 hours. On day 2 and 3, take 1 tablet every 12 hours. 0.6 mg PO DAILY 7 tabs 0RF Coding Level of Care Code New Pt Level 3 (96993) Diagnoses Acute gout due to renal impairment involving toe of left foot M10.372 Gout etiology: due to renal impairment Gout site: toe Laterality: left
[2023-12-23 09:57] VITALS: BP 114/74; PULSE 53; TEMP 36.4; O2SAT 95; BMI 31.3
== END 2023-12-23 10:29 | disposition home or self-care (01) ==
PROVIDERS: PCP Internal Medicine; Visit Provider Physician Assistant
DX: M10.372 Gout due to renal impairment, left ankle and foot (principal)
CPT/HCPCS: 99203

== ENCOUNTER 2023-12-29 12:25 | Outpatient (AMB) | payer MEDICARE, SELFPAY ==
[2023-12-29 12:28] VITALS: BP 124/78; PULSE 49; BMI 31.4
--- NOTE | 2023-12-29 12:28 | MHC.OFFVIS ---
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 Allergies baclofen Adverse Reaction (Unknown, Verified 12/23/23 10:02) CONFUSION, OUT OF IT oxycodone [From Percocet] Adverse Reaction (Unknown, Verified 12/23/23 10:02) NAUSEA Medication List - Last Reconciled 12/29/23 by Shaun Saleh MD acetaminophen 1,000 mg PO BID PRN alprazolam 1 mg PO TID amlodipine 10 mg PO DAILY apixaban (Eliquis) 5 mg PO BID atorvastatin 40 mg PO BEDTIME blood sugar diagnostic (Contour Next Test Strips) As directed 3 times a day 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 meter (Contour Next One Meter) As directed 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 meter,continuous (FreeStyle Sanjeev 3 [place]) As directed E&M code 11.8 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 sensor (FreeStyle Sanjeev 3 Sensor device) As directed E11.8 carbidopa-levodopa 25-100 mg 1 tab PO TID cholecalciferol (vitamin D3) 50 mcg PO DAILY 30 days colchicine 0.6 mg PO DAILY cyanocobalamin (vitamin B-12) 1,000 mcg IM Q28D empagliflozin (Jardiance) 10 mg PO DAILY ferrous sulfate 325 mg PO DAILY furosemide (Lasix) 40 mg PO DAILY insulin degludec (Tresiba FlexTouch U-100 insulin) 55 units subcut DAILY lancets As directed levothyroxine 175 mcg PO DAILY losartan 100 mg PO DAILY metoprolol tartrate 25 mg PO BID paroxetine HCl 40 mg PO DAILY pen needle, diabetic 4x daily HPI Comments Details: Bianca comes for follow-up. Was admitted in September with decompensated congestive heart failure. Prior to hospitalization she says she was gaining weight but did not take extra diuretics as had been discussions in the past. She ended up requiring BiPAP and subsequently to be diuresed. She is now on 40 mg of Lasix as well as on Jardiance. She denies any exertional chest pain. No weight gain since then. She says a dry weight around at home is 171 lb. She denies any palpitations. No orthopnea, PND, abdominal distension. No lightheadedness, syncope. [facility] Medical History (Updated 12/29/23 @ 12:47 by Shaun Saleh MD) (HFpEF) heart failure with preserved ejection fraction CKD (chronic kidney disease) Pulmonary hypertension Atrial fibrillation Persistent atrial fibrillation CAD (coronary artery disease) Vitamin D deficiency HLD (hyperlipidemia) T2DM (type 2 diabetes mellitus) Acute exacerbation of congestive heart failure Hypertension Parkinson disease Hypothyroid Diabetes Surgical History Hx of cardiac cath (~01/2017) Hx of carpal tunnel repair Hx of knee surgery Hx of hysterectomy Family History Father No problems noted. Mother T2DM (type 2 diabetes mellitus) Brother T2DM (type 2 diabetes mellitus) Social History Household Members: None Housing: House Do you presently have visiting nurse or other home services: No Alcohol intake: current Alcohol intake frequency: holidays/special occasions only Alcohol type: wine Patient Tobacco Use Status: Former Tobacco user Tobacco use type: Cigarette service: No Current occupational status: retired Review of Systems Const Denies chills, Denies fatigue, Denies fever(s), Denies frequent falls, Denies weakness, Denies weight gain and Denies weight loss ENT Denies dizziness Card Denies chest pain, Denies leg edema, Denies lightheadedness, Denies palpitations, Denies dyspnea, Denies dyspnea on exertion, Denies orthopnea and Denies other (loss of consciousness) Resp Denies cough, Denies dyspnea and Denies dyspnea on exertion GI Denies hematochezia and Denies change in stool character Musc Denies abnormal gait, Denies muscle weakness, Denies numbness, Denies radiating pain into limb and Denies tingling Neuro Denies abnormal gait, Denies dizziness, Denies frequent falls, Denies numbness, Denies tingling and Denies weakness Endo Denies fatigue and Denies palpitations Physical Exam Vital Signs: Last Vital Signs Pulse 49 L 12/29/23 12:28 BP 124/78 12/29/23 12:28 BMI result Body Mass Index 31.4 Const General: cooperative, comfortable, no acute distress, alert, awake and well groomed Nutritional Appearance: overweight Orientation/consciousness: patient oriented x3 Limitations: no limitations Neck Neck: Yes trachea midline, Yes supple and Yes no JVD Chest Chest palpation & inspection: normal inspection of the chest Resp Effort & Inspection: normal respiratory effort Auscultation: clear to auscultation bilaterally Cardio Jugular venous distension: no JVD Palpation: normal PMI Rate: regular rate Rhythm: abnormal rhythm irregularly irregular Heart sounds: S1 normal heart sound present, S2 normal heart sound present and Other heart sounds present (S4 present) GI Auscultation: normal bowel sounds Skin General skin exam: no rashes or lesions noted Neuro General: patient oriented x3 and no focal motor deficits Extrem General: Yes no clubbing, cyanosis or edema Psych Appearance: grossly normal Assessment & Plan Assessment & Plan (1) (HFpEF) heart failure with preserved ejection fraction: Code(s): I50.30 - Unspecified diastolic (congestive) heart failure Category: Medical Plan: Heart failure preserved ejection fraction related to chronic atrial fibrillation diastolic dysfunction. Clinically currently appears to be euvolemic and well compensated. Continue current diuretic dose. Discussed with her about management of heart failure again. Daily weight monitoring avoidance of salt loading was discussed additional diuretics as need be. Continue Jardiance therapy. Will check BMP and BNP today. Advise follow-up every 3 months for more intense follow-up. Continue aggressive blood pressure control. Encouraged to increase activity level as tolerated. (2) Atrial fibrillation, chronic: Code(s): I48.20 - Chronic atrial fibrillation, unspecified Category: Medical Plan: Chronic atrial fibrillation, currently rate controlled. Continue rate control strategy. Continue full oral anticoagulation, currently on Eliquis 5 mg b.i.d.. Quarterly renal function test should be pursued. Follow up in the clinic in 3 months time, sooner p.r.n.. Thank you for allowing me to partake in his care Orders: Orders Basic Metabolic Panel Today I50.30 - Unspecified diastolic (congestive) heart failure B Type Natriuretic Peptide Today I50.30 - Unspecified diastolic (congestive) heart failure Coding Level of Care Code Est Pt Level 4 (01025) Diagnoses (HFpEF) heart failure with preserved ejection fraction I50.30 Atrial fibrillation, chronic I48.20
== END 2023-12-29 12:54 | disposition home or self-care (01) ==
PROVIDERS: PCP Internal Medicine; Visit Provider Internal Medicine Cardiovascular Disease
DX: I50.30 Unspecified diastolic (congestive) heart failure (principal); I48.20 Chronic atrial fibrillation, unspecified
CPT/HCPCS: 99214

== ENCOUNTER 2023-12-29 12:25 | Outpatient (REF) | payer MEDICARE, SELFPAY ==
[2023-12-29 14:30] LABS: B Type Natriuretic Peptide 347 pg/mL (<100)
[2023-12-29 14:36] LABS: Anion Gap 17 (12-20); Blood Urea Nitrogen 24 mg/dL (9-16); Carbon Dioxide 29 mmol/L (22-29); Chloride 100 mmol/L (96-108); Estimated Glomerular Filt Rate 34; Glucose Random 192 mg/dL (60-115); Potassium 4.6 mmol/L (3.3-5.1); Sodium 141 mmol/L (135-145)
[2023-12-29 14:39] LABS: Creatinine Urine 32.95 mg/dL; Total Protein Urine Random < 7 mg/dL (<12)
== END 2023-12-29 12:26 | disposition home or self-care (01) ==
LOC: HO.LAB 12:25
PROVIDERS: Internal Medicine Hypertension Specialist; PCP Internal Medicine; Visit Provider Internal Medicine Cardiovascular Disease
DX: I48.20 Chronic atrial fibrillation, unspecified (principal); N05.9 Unspecified nephritic syndrome with unspecified morphologic changes; I50.30 Unspecified diastolic (congestive) heart failure; N18.9 Chronic kidney disease, unspecified
CPT/HCPCS: 36415; 80048; 82570; 83880; 84156; 99212

== ENCOUNTER 2024-01-13 12:43 | Outpatient (AMB) | payer MEDICARE, SELFPAY ==
--- NOTE | 2024-01-13 12:46 | AM.OFFWIN_ITS ---
Intake Vital Signs 3 01/13/24 12:47 Height 5 ft 2 in Weight 171 lb BMI 31.3 BP 118/80 Blood Pressure Location Lt brachial Position Sitting Pulse 60 Pulse Source Pulse Oximeter Pulse Oximetry (%) 90 L Oxygen Delivery Method Room Air Intake Visit Reasons: EP- non stop gum bleeding from tooth removed Intake Note: Patient here for gum bleeding after a tooth extraction. She states she has been very nauseous from swallowing blood as she was instructed not to spit. Patient Tobacco Use Status: Former Tobacco user Allergies baclofen Adverse Reaction (Unknown, Verified 01/13/24 12:49) CONFUSION, OUT OF IT oxycodone [From Percocet] Adverse Reaction (Unknown, Verified 01/13/24 12:49) NAUSEA Do you need a note to return to daycare/school/sports/work: No HPI HPI Comments 2 History of Present Illness0 Details Patient is a 79-year-old female complaining bleeding gums for 8 days. She states she had a tooth extracted 8 days ago at a dentist in [place]. She was not told to stop her Eliquis prior to the extraction and did end up stopping taking it the day after the extraction, she was told to resume it in 3 days. She states she woke up yesterday morning with blood all over her face so she called the dentist and he had her come in where she was given some kind of injection to the area but she was not told what the medication was. She states this did not stop her bleeding. She has been using some gauze on the area and applying pressure but that does not seem to be helping either. She tells me the bleeding just stopped prior to me walking into the exam room. [facility] Medical History (Updated 01/13/24 @ 13:07 by Cira Lentz PA-C) (HFpEF) heart failure with preserved ejection fraction CKD (chronic kidney disease) Pulmonary hypertension Atrial fibrillation Persistent atrial fibrillation CAD (coronary artery disease) Vitamin D deficiency HLD (hyperlipidemia) T2DM (type 2 diabetes mellitus) Acute exacerbation of congestive heart failure Hypertension Parkinson disease Hypothyroid Diabetes Surgical History Hx of cardiac cath (~01/2017) Hx of carpal tunnel repair Hx of knee surgery Hx of hysterectomy Family History Father No problems noted. Mother T2DM (type 2 diabetes mellitus) Brother T2DM (type 2 diabetes mellitus) Social History Household Members: None Housing: House Do you presently have visiting nurse or other home services: No Alcohol intake: current Alcohol intake frequency: holidays/special occasions only Alcohol type: wine Patient Tobacco Use Status: Former Tobacco user Tobacco use type: Cigarette service: No Current occupational status: retired Review of Systems Const All systems reviewed & are unremarkable except as noted in HPI and below Physical Exam Vital Signs: BMI result Body Mass Index 31.3 Const General: cooperative, healthy appearing, comfortable, no acute distress and well developed Orientation/consciousness: patient oriented x3 Limitations: no limitations HEENT Head: Yes normal to inspection Ears: hearing grossly normal bilaterally General nose exam: Normal external nose present Face and sinus: Yes normal facial exam Teeth and gingiva: other (clot on area of #7, no signs of infection noted, no active bleeding) Teeth image: 2 1. tooth removed, clot in place, no active bleeding or signs of infection noted Eyes General: appearance normal, both eyes and all related structures Neck Neck: Yes normal visual inspection and Yes full ROM Resp Effort & Inspection: normal respiratory effort and able to speak in complete sentences Skin General skin exam: no rashes or lesions noted Neuro General: patient oriented x3 Extrem General: Yes normal to inspection Assessment & Plan Assessment & Plan (1) Bleeding gums: Code(s): K06.8 - Other specified disorders of gingiva and edentulous alveolar ridge Plan: As the bleeding had stopped during my exam, I did reiterate she can use a cold tea bag and bite on it to stop any future bleeding as well as using an ice pack directly on the area. I also provided her with some clean gauze which she can roll up and bite down on as well to apply pressure. Recommended continuing to use Tylenol for pain and resuming her Eliquis as instructed by her dentist. Plan See above Coding Level of Care Code Est Pt Level 3 (10696) Diagnoses Bleeding gums K06.8
[2024-01-13 12:47] VITALS: BP 118/80; PULSE 60; O2SAT 90; BMI 31.3
== END 2024-01-13 13:42 | disposition home or self-care (01) ==
PROVIDERS: PCP Internal Medicine; Visit Provider Physician Assistant
DX: K06.8 Other specified disorders of gingiva and edentulous alveolar ridge (principal)

== ENCOUNTER → 2024-01-13 12:43 | Outpatient (BNVA) | payer MEDICARE, SELFPAY | PROVIDERS: PCP Internal Medicine | DX: K06.8 Other specified disorders of gingiva and edentulous alveolar ridge (principal) | CPT/HCPCS: 99212 ==

== ENCOUNTER 2024-01-14 11:07 | Outpatient (AMB) | payer MEDICARE, SELFPAY ==
--- NOTE | 2024-01-14 11:36 | A.OFFVIS_ITS ---
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 Required: No Accompanied by: Self / Same As Patient Allergies baclofen Adverse Reaction (Unknown, Verified 01/13/24 12:49) CONFUSION, OUT OF IT oxycodone [From Percocet] Adverse Reaction (Unknown, Verified 01/13/24 12:49) NAUSEA HPI Comprehensive Diabetes Asmnt Most Recent Diabetes Results: Microalb/Creat Ratio 15.2 ug/mg cr 01/28/21 Cholesterol 179 mg/dL 01/28/21 HDL Cholesterol 44 mg/dL 01/28/21 Triglycerides 190 mg/dL 01/28/21 Creatinine 1.50 mg/dL (0.5-1.4) H 12/29/23 Blood Urea Nitrogen 24 mg/dL (9-16) H 12/29/23 Sodium 141 mmol/L (135-145) 12/29/23 Potassium 4.6 mmol/L (3.3-5.1) 12/29/23 Chloride 100 mmol/L (96-108) 12/29/23 Carbon Dioxide 29 mmol/L (22-29) 12/29/23 Calcium 10.0 mg/dL (8.4-10.2) 12/29/23 AST 28 U/L (5-31) 10/21/23 ALT 26 U/L (0-31) 10/21/23 Total Protein 7.7 g/dL (6.5-8.0) 10/21/23 Albumin 4.3 g/dL (3.5-5.0) 10/21/23 [facility] Medical History (Updated 01/13/24 @ 13:07 by Cira Lentz PA-C) (HFpEF) heart failure with preserved ejection fraction CKD (chronic kidney disease) Pulmonary hypertension Atrial fibrillation Persistent atrial fibrillation CAD (coronary artery disease) Vitamin D deficiency HLD (hyperlipidemia) T2DM (type 2 diabetes mellitus) Acute exacerbation of congestive heart failure Hypertension Parkinson disease Hypothyroid Diabetes Surgical History Hx of cardiac cath (~01/2017) Hx of carpal tunnel repair Hx of knee surgery Hx of hysterectomy Family History Father No problems noted. Mother T2DM (type 2 diabetes mellitus) Brother T2DM (type 2 diabetes mellitus) Social History Household Members: None Housing: House Do you presently have visiting nurse or other home services: No Alcohol intake: current Alcohol intake frequency: holidays/special occasions only Alcohol type: wine Patient Tobacco Use Status: Former Tobacco user Tobacco use type: Cigarette service: No Current occupational status: retired Assessment & Plan Assessment & Plan (1) Diabetes: Code(s): E11.9 - Type 2 diabetes mellitus without complications Plan: Patient at visit to set up an insert Sanjeev 3 sensor. Patient is transitioning from Sanjeev 2 Instructed patient sensors water proof you can shower, or swim do not submerge sensor in water for over 30 minutes Is sensor falls off cannot put back in you need to replace sensor, customer service number given to patient for sensor replacement Sensor placed on the back of Right arm Patient left visit with sensor in warmup Reviewed patient's Sanjeev 2 data Patients CGM information reviewed Reviewed patient's sensor data: Hypoglycemia: ? 3% Hyperglycemia:? 54% Time in Range:? 43% Average glucose for the last 2 weeks? 190 mg/dL Patient reports taking Tresiba 55 units daily, patient's glucose levels are declining overnight and patient is having hypoglycemia from approximately 02:00am to 08:00am on several nights a week. When patient wakes up low she is eating banana and drinking fruit juice, which is contributing to morning hyperglycemia Reviewed with patient how to treat low blood sugars with rule of 15s Recommended to patient to reduce Tresiba to 48 units daily, patient has follow- up appointment with [facility]ICATION[facility] SPECIALIST on 01/20/2024 Reviewed how to interpret trend arrows Reminded patient that to check finger sticks if symptoms do not match sensor reading. Discussed lag time between finger stick and sensor data.? Instructed patient she should always keep blood glucometer for backup testing if needed Reviewed delay of CGM from fingersticks Reminded pt that if symptoms do not match sensor still needs to check fingersticks. Portions of this note were created using voice recognition software, please excuse any words or phrases that may have been misinterpreted. Patient Instructions: Patient instruction: CGM provides information on blood glucose control throughout the day, including hyperglycemia and hypoglycemia. ? Continue to monitor blood glucose as instructed. Follow nutrition guidelines provided. Repo rt any discomfort promptly to health care provider. ?Stay well-hydrated. You can bathe ,shower, swim and exercise while wearing the glucose sensor. Do not submerge glucose sensor in water for more than 30 minutes. Coding Level of Care Code Est Pt Level 1 (14892) Diagnoses Diabetes E11.9
== END 2024-01-14 11:38 | disposition home or self-care (01) ==
PROVIDERS: PCP Internal Medicine; Visit Provider Registered Nurse Diabetes Educator
DX: E11.9 Type 2 diabetes mellitus without complications (principal)

== ENCOUNTER → 2024-01-14 11:07 | Outpatient (BNVA) | payer MEDICARE, SELFPAY | PROVIDERS: PCP Internal Medicine; Visit Provider Registered Nurse Diabetes Educator | DX: E11.9 Type 2 diabetes mellitus without complications (principal) | CPT/HCPCS: 99211 ==

== ENCOUNTER 2024-01-20 12:30 | Outpatient (AMB) | payer MEDICARE, SELFPAY ==
--- NOTE | 2024-01-20 11:30 | A.OFFVIS_ITS ---
Vital Signs 01/20/24 12:36 Height 5 ft 2 in Weight 171 lb 15.369 oz BMI 31.4 BP 112/68 Blood Pressure Location Rt brachial Position Sitting Pulse 60 Pulse Source Pulse Oximeter Intake Visit Reasons: T2DM/CONFIRMED Intake Note: Patient presents today to established treatment for DM TYPE 2: Last Diabetic eye exam was on: 09/2023 Last Podiatry exam was on: 2023 Most recent HbA1c: 8.7%, 01/20/2024 Random Glucose- 165 mg/dL, Today Talcer Required: No Accompanied by: Daughter Rao baclofen Adverse Reaction (Unknown, Verified 01/13/24 12:49) CONFUSION, OUT OF IT oxycodone [From Percocet] Adverse Reaction (Unknown, Verified 01/13/24 12:49) NAUSEA HPI Comments Details: Patient is a 78 year-old female with DM type 2 who presents for management of diabetes. Patient was last seen in October 2023. Today presents with daughter Alyson who assists with patients medication management. Past medical history: DM2, HTN, HLD, CKD3, CHF Micro and macrovascular complications: nephropathy, CAD Previously on short acting insulin which was stopped by PCP due to patient not remembering to take it. Diabetes medications: Tresiba 48 units (recently reduced due to lows at night) Jardiance 10mg daily (started by [employer] for CHF) Freestyle shamika sensor 3 average glucose: [193 ] 14 day continuous glucose sensor report reviewed Glucose Management indicator 7.9 % Time CGM active 41.3 % TIme in ranges: 1 % very high (above 250) 30 % high (181-250) 49 % in range (70-180] 0 % low (69-55) 0 % very low (below 54) 41.3 Glucose variability (target <36%) Interpretation of CGMS [overall average 190 with some increase postprandial after breakfast ] Hyperglycemia: asymptomatic Hypoglycemia: No neuropathy: no numbness, tingling, cramping in lower extremities, sees Podiatry every 3 monthsc Retinopathy: last eye exam: left message with daughter + Nephropathy: 2023 eGFR (no change from baseline) Other specialists: Cod Clerk, Hall Porter, Neurologist [facility] Medical History (Updated 01/13/24 @ 13:07 by Cira Lentz PA-C) (HFpEF) heart failure with preserved ejection fraction CKD (chronic kidney disease) Pulmonary hypertension Atrial fibrillation Persistent atrial fibrillation CAD (coronary artery disease) Vitamin D deficiency HLD (hyperlipidemia) T2DM (type 2 diabetes mellitus) Acute exacerbation of congestive heart failure Hypertension Parkinson disease Hypothyroid Diabetes Surgical History Hx of cardiac cath (~01/2017) Hx of carpal tunnel repair Hx of knee surgery Hx of hysterectomy Family History Father No problems noted. Mother T2DM (type 2 diabetes mellitus) Brother T2DM (type 2 diabetes mellitus) Social History Household Members: None Housing: House Do you presently have visiting nurse or other home services: No Alcohol intake: current Alcohol intake frequency: holidays/special occasions only Alcohol type: wine Patient Tobacco Use Status: Former Tobacco user Tobacco use type: Cigarette service: No Current occupational status: retired Physical Exam Vital Signs: Last Vital Signs Pulse 60 01/20/24 12:36 BP 112/68 01/20/24 12:36 BMI result Body Mass Index 31.4 Const Other: Absence of Cushingoid features. Absence of acromegalic features. Neck exam reveals nl size thyroid about 15 gms. No thyroid nodules palpable. Heart S1 S2, Reg R/R. No M/R G. Skin exam reveals absence of vitiligo or acanthosis nigricans. No edema Visual exam of foot performed. No ulcerations or open lesions. No inter digit maceration or fissuring. No onychomycosis, no callouses. Sensation diminshed to monofilament exam. Vibratory sensation is normal with 128 Hz tuning fork. Office Procedures Glucose Monitoring Details Details: see [facility] [id number] - Glucose monitoring, continuous-physician I&R Procedure code (CPT) selection complete Results AMB Hemoglobin A1c AMB Hemoglobin A1c 8.7 % Last Edit by CELINA Montes on 01/20/24 12:53 Results Reviewed Results Reviewed: Laboratory Last Values Glucose (Clinic) 165 mg/dL (60-115) H 01/20/24 12:43 Hgb A1c (Clinic) 8.7 % (4.0-6.0) H 01/20/24 12:34 Assessment & Plan Assessment & Plan (1) T2DM (type 2 diabetes mellitus): Code(s): E11.9 - Type 2 diabetes mellitus without complications Category: Medical Qualifiers: 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 Given her age and memory, he will be difficult for patient to add additional doses of insulin even though she may benefit from a breakfast dose of short-acting. This has been problematic for her in the past. A target A1c of 8% is reasonable for this patient and I will see her back in 3 months. Continue current medications Side effects of SGLT-2 inhibitors were reviewed with the patient/daughter: UTI, fungal infection, bacterial infection in the perineum, light headed feeling like you may pass out, low blood sugar, dehydration, allergic reaction-skin rash, itching, hives, rare dka, change in renal function.. Patient was advised to contact PCP or go to urgent care for any infection. 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
[2024-01-20 12:36] VITALS: BP 112/68; PULSE 60; BMI 31.4
[2024-01-20 12:47] LABS: Glucose, Whole Blood 165 mg/dL (60-115)
== END 2024-01-20 13:04 | disposition home or self-care (01) ==
PROVIDERS: PCP Internal Medicine; Visit Provider Nurse Practitioner Adult Health
DX: E11.9 Type 2 diabetes mellitus without complications (principal)
CPT/HCPCS: 95251; 99214

== ENCOUNTER → 2024-01-20 12:30 | Outpatient (BNVA) | payer MEDICARE, SELFPAY | PROVIDERS: PCP Internal Medicine; Visit Provider Nurse Practitioner Adult Health | DX: E11.21 Type 2 diabetes mellitus with diabetic nephropathy (principal); E11.22 Type 2 diabetes mellitus with diabetic chronic kidney disease; Z79.4 Long term (current) use of insulin | CPT/HCPCS: 82947; 83036; 99212 ==

== ENCOUNTER 2024-02-05 15:04 | Outpatient (REF) | payer MEDICARE, SELFPAY ==
[2024-02-05 15:52] LABS: Anion Gap 16 (12-20); Blood Urea Nitrogen 26 mg/dL (9-16); Calcium 9.7 mg/dL (8.4-10.2); Carbon Dioxide 26 mmol/L (22-29); Chloride 102 mmol/L (96-108); Estimated Glomerular Filt Rate 32; Glucose Random 245 mg/dL (60-115); Potassium 4.6 mmol/L (3.3-5.1); Sodium 139 mmol/L (135-145)
== END 2024-02-05 15:05 | disposition home or self-care (01) ==
LOC: HO.LAB 15:04
PROVIDERS: PCP Internal Medicine; Visit Provider Internal Medicine Hypertension Specialist
DX: N18.9 Chronic kidney disease, unspecified (principal); I50.30 Unspecified diastolic (congestive) heart failure
CPT/HCPCS: 36415; 80048

== ENCOUNTER 2024-02-09 13:19 | Outpatient (AMB) | payer MEDICARE, SELFPAY ==
[2024-02-09 13:23] VITALS: BP 100/58; PULSE 60; O2SAT 91; BMI 31.6
--- NOTE | 2024-02-09 13:23 | HO.NEPHOV ---
Vital Signs 02/09/24 13:23 Height 5 ft 2 in Weight 173 lb BMI 31.6 BP 100/58 L Blood Pressure Location Rt brachial Position Sitting Pulse 60 Pulse Source Pulse Oximeter Pulse Oximetry (%) 91 L Oxygen Delivery Method Room Air Intake Visit Reasons: 3 mon follow up Accompanied by: Self / Same As Patient Allergies baclofen Adverse Reaction (Unknown, Verified 02/09/24 13:25) CONFUSION, OUT OF IT oxycodone [From Percocet] Adverse Reaction (Unknown, Verified 02/09/24 13:25) NAUSEA Medication List - Last Reconciled 02/09/24 by Roberto Murphy MD acetaminophen 1,000 mg PO BID PRN alprazolam 1 mg PO TID amlodipine 10 mg PO DAILY apixaban (Eliquis) 5 mg PO BID atorvastatin 40 mg PO BEDTIME blood sugar diagnostic (Contour Next Test Strips) As directed 3 times a day 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 meter (Contour Next One Meter) As directed 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 meter,continuous (FreeStyle Sanjeev 3 [place]) As directed E&M code 11.8 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 sensor (FreeStyle Sanjeev 3 Sensor device) As directed E11.8 carbidopa-levodopa 25-100 mg 1 tab PO TID cholecalciferol (vitamin D3) 50 mcg PO DAILY 30 days cyanocobalamin (vitamin B-12) 1,000 mcg IM Q28D empagliflozin (Jardiance) 10 mg PO DAILY ferrous sulfate 325 mg PO DAILY furosemide (Lasix) 40 mg PO DAILY insulin degludec (Tresiba FlexTouch U-100 insulin) 48 units subcut DAILY lancets As directed levothyroxine 175 mcg PO DAILY losartan 100 mg PO DAILY metoprolol tartrate 25 mg PO BID paroxetine HCl 40 mg PO DAILY pen needle, diabetic 4x daily HPI Comments Details: 78-year-old woman with longstanding hypertension diabetes mellitus with CKD. She is here for routine follow-up. REcently hospitalized for CHF Now on Lasix Supposed to take 40 mg QD But she has been taking 2 tabs a day Cr up to 1.5 from 1.2 This corresponds to the addition of Jardiance. Cr stays at 1.55 [facility] Medical History (Updated 01/13/24 @ 13:07 by Cira Lentz PA-C) (HFpEF) heart failure with preserved ejection fraction CKD (chronic kidney disease) Pulmonary hypertension Atrial fibrillation Persistent atrial fibrillation CAD (coronary artery disease) Vitamin D deficiency HLD (hyperlipidemia) T2DM (type 2 diabetes mellitus) Acute exacerbation of congestive heart failure Hypertension Parkinson disease Hypothyroid Diabetes Surgical History Hx of cardiac cath (~01/2017) Hx of carpal tunnel repair Hx of knee surgery Hx of hysterectomy Family History Father No problems noted. Mother T2DM (type 2 diabetes mellitus) Brother T2DM (type 2 diabetes mellitus) Social History Household Members: None Housing: House Do you presently have visiting nurse or other home services: No Alcohol intake: current Alcohol intake frequency: holidays/special occasions only Alcohol type: wine Patient Tobacco Use Status: Former Tobacco user Tobacco use type: Cigarette service: No Current occupational status: retired Physical Exam Vital Signs: Last Vital Signs Pulse 60 02/09/24 13:23 BP 100/58 L 02/09/24 13:23 Pulse Ox 91 L 02/09/24 13:23 Oxygen Delivery Method Room Air 02/09/24 13:23 BMI result Body Mass Index 31.6 Const General: comfortable; No acute distress Orientation/consciousness: patient oriented x3 Eyes General: appearance normal, both eyes and all related structures Visual Goodwin: normal visual goodwin by confrontation Neck Neck: Yes supple and Yes no JVD Resp Effort & Inspection: normal respiratory effort and respiratory effort not decreased Auscultation: rhonchi Cardio Palpation: no palpable S3 and no palpable S4 Heart sounds: no rubs GI Inspection: Yes normal to inspection Palpation (GI): Soft to palpation Percussion: Yes normal to percussion Auscultation: normal bowel sounds General: Yes no CVA tenderness Back/Spine/Pelvis Back: no CVA tenderness Skin General skin exam: no petechiae and no purpura Neuro General: patient oriented x3 and no focal motor deficits Extrem General: No clubbing and No edema Results Reviewed Nephrology Results: Hgb 17.0 g/dl (12.0-16.0) H 12/23/23 WBC 5.4 X10*3/uL (4.8-10.8) 12/23/23 Plt Count 195 X10*3/uL (160-400) 12/23/23 Sodium 139 mmol/L (135-145) 02/05/24 Potassium 4.6 mmol/L (3.3-5.1) 02/05/24 Chloride 102 mmol/L (96-108) 02/05/24 Carbon Dioxide 26 mmol/L (22-29) 02/05/24 BUN 26 mg/dL (9-16) H 02/05/24 Creatinine 1.55 mg/dL (0.5-1.4) H 02/05/24 Calcium 9.7 mg/dL (8.4-10.2) 02/05/24 Urine Creatinine 32.95 mg/dL 12/29/23 Assessment & Plan Assessment & Plan (1) CKD (chronic kidney disease): Comment: Mild CKD in a setting of hypertension diabetes mellitus renal function stay Code(s): N18.9 - Chronic kidney disease, unspecified Category: Medical Plan: Goal is to slow the progressionof the kidney disease No significant proteinuria Maintain A1c less than 7% Maintain blood pressure less than 130/80 Continue to avoid nephrotoxic agents including NSAIDs. Superimposed PREETI due to hypoperfusion No improvement after decreasing Lasix 40 mg PO BID to QD Bump in cr correnponds to theinitiation of Jardiance. However, cr has been stable for the past few months (2) (HFpEF) heart failure with preserved ejection fraction: Code(s): I50.30 - Unspecified diastolic (congestive) heart failure Category: Medical Plan: Well compensated On Lasix Follow-up with cardiology as needed Discussed low-salt (3) Hypertension: Code(s): I10 - Essential (primary) hypertension Category: Medical Qualifiers: Hypertension type: unspecified Qualified Code(s): I10 - Essential (primary) hypertension Plan: Blood pressure well controlled No changes were made to her antihypertensive medications Orders: Orders Electrolytes 4 Months N18.9 - Chronic kidney disease, unspecified Creatinine 4 Months N18.9 - Chronic kidney disease, unspecified Blood Urea Nitrogen 4 Months N18.9 - Chronic kidney disease, unspecified Calcium 4 Months N18.9 - Chronic kidney disease, unspecified Coding Level of Care Code Est Pt Level 4 (65645) Diagnoses CKD (chronic kidney disease) N18.9 (HFpEF) heart failure with preserved ejection fraction I50.30 Hypertension, unspecified type I10 Hypertension type: unspecified
== END 2024-02-09 13:38 | disposition home or self-care (01) ==
LOC: HO.HKA 13:19
PROVIDERS: PCP Internal Medicine; Visit Provider Internal Medicine Hypertension Specialist
DX: I13.0 Hypertensive heart and chronic kidney disease with heart failure and stage 1 through stage 4 chronic kidney disease, or unspecified chronic kidney disease (principal); I50.30 Unspecified diastolic (congestive) heart failure; N18.9 Chronic kidney disease, unspecified
CPT/HCPCS: 99214

== ENCOUNTER → 2024-02-09 13:19 | Outpatient (BNVA) | payer MEDICARE, SELFPAY | PROVIDERS: PCP Internal Medicine; Visit Provider Internal Medicine Hypertension Specialist | DX: I13.0 Hypertensive heart and chronic kidney disease with heart failure and stage 1 through stage 4 chronic kidney disease, or unspecified chronic kidney disease (principal); E11.22 Type 2 diabetes mellitus with diabetic chronic kidney disease; I50.30 Unspecified diastolic (congestive) heart failure; N18.9 Chronic kidney disease, unspecified; Z79.899 Other long term (current) drug therapy | CPT/HCPCS: 99212 ==

== ENCOUNTER 2024-03-16 17:40 | Observation (INO) | payer MEDICARE, SELFPAY ==
--- NOTE | ~2024-03-16 | CT_ITS ---
EXAMINATION: CT ANGIOGRAM CHEST CLINICAL INFORMATION: Hypoxia. COMPARISON: CT chest done earlier the same day. TECHNIQUE: Multiple axial images were obtained through the chest after the administration of 65 mL of Omnipaque 350 intravenous contrast. Extensive vascular post-processing including two-dimensional and three-dimensional reformatted images were created and reviewed on an independent workstation. This CT examination was performed using dose optimization techniques as appropriate, variously including the following: *Automated exposure control *Adjustment of mA and/or kV according to patient size (this includes techniques or standardized protocols for targeted exams where dose is matched to indication/reason for exam; i.e. extremities or head) *Use of iterative reconstruction technique DLP: 340 mGy-cm. FINDINGS: QUALITY OF STUDY/CONTRAST BOLUS: Satisfactory. PULMONARY ARTERIES: No pulmonary emboli. THORACIC AORTA: No aneurysm. LUNG: No focal airspace consolidation. Bibasilar atelectasis is redemonstrated. No large pulmonary nodule or mass. The central airways are patent. PLEURA: No pleural effusion or pneumothorax. MEDIASTINUM: Mild cardiomegaly, unchanged. No pericardial effusion. No superior mediastinal or hilar lymphadenopathy. No evidence of septal bowing or right heart strain. CORONARY ARTERY CALCIFICATION: Present. CHEST WALL/AXILLA: No axillary or internal mammary lymphadenopathy. OSSEOUS STRUCTURES: No acute or suspicious osseous abnormality. UPPER ABDOMEN: Stable geographic fatty infiltration of the left hepatic lobe, unchanged. Otherwise, the visualized upper abdominal structures are unremarkable. No reflux of contrast into the hepatic veins to suggest elevated right heart pressures. CT/CT angio chest PE protocol IMPRESSION: 1. No CT angiographic evidence of acute pulmonary embolism. 2. No focal airspace consolidation. Bibasilar atelectasis, unchanged. 3. Mild cardiomegaly, unchanged. VTE: Negative. Fleischner guidelines were followed. Electronically signed by: David Russell MD 03/17/2024 03:42 PM [facility]
--- NOTE | ~2024-03-16 | XR_ITS ---
EXAMINATION: XR HIP, RIGHT CLINICAL INFORMATION: fall COMPARISON: None available. TECHNIQUE: Two views of the right hip. FINDINGS: No fracture. Alignment is anatomic. Soft tissues are unremarkable. Mild to moderate degenerative changes of the right hip joint. XR/XR hip RT w PEL1V IMPRESSION: No acute fracture or dislocation. Mild to moderate degenerative changes of the right hip joint. Electronically signed by: Theodora Thompson MD 03/16/2024 07:32 PM [facility]
--- NOTE | ~2024-03-16 | XR_ITS ---
EXAMINATION: XR lumbar spine 2-3V CLINICAL INFORMATION: fall COMPARISON: Lumbar spine radiographs 09/30/2021 TECHNIQUE: 3 views of the lumbar spine FINDINGS: 5 nonrib-bearing lumbar-type vertebral bodies. Vertebral body heights are maintained. Leftward scoliosis of the lumbar spine. Minimal degenerative change and small anterior disc osteophyte complexes. Disc space heights are maintained. Atherosclerotic calcifications of the abdominal aorta. XR/XR lumbar spine 2-3V IMPRESSION: Mild spondylosis of the lumbar spine, as above detailed. Electronically signed by: Theodora Thompson MD 03/16/2024 07:34 PM EST [facility]
--- NOTE | ~2024-03-16 | CT_ITS ---
EXAMINATION: CT HEAD WITHOUT CONTRAST CLINICAL INFORMATION: Fall. Patient on Eliquis. COMPARISON: Brain MRI from 10/24/2016. TECHNIQUE: Contiguous axial imaging was performed from the skull base to vertex without intravenous administration of contrast. This CT examination was performed using dose optimization techniques as appropriate, variously including the following: *Automated exposure control. *Adjustment of mA and/or kV according to patient size (this includes techniques or standardized protocols for targeted exams where dose is matched to indication/reason for exam; i.e. extremities or head). *Use of iterative reconstruction technique. DLP: 582 mGy-cm FINDINGS: There is no evidence of acute intracranial hemorrhage or edematous territorial infarction. Knight-white matter differentiation is preserved. Scattered and partially confluent hypoattenuation in the periventricular and deep white matter are consistent with mild to moderate microangiopathy. Proportional prominence of the ventricles and sulcal spaces without evidence of obstructive hydrocephalus. No abnormal mass effect or midline shift. No extra-axial fluid collections. No acute soft tissue or osseous abnormalities. Mild mucosal thickening of the paranasal sinuses. The mastoid air cells and middle ear cavities are clear. Bilateral lens extractions. CT/CT head/brain wo IV con IMPRESSION: 1. No evidence of acute intracranial hemorrhage or edematous territorial infarction. 2. Mild to moderate underlying microangiopathy and generalized cerebral volume loss. Electronically signed by: Sage Brooke DO 03/16/2024 09:22 PM [facility] [place]
--- NOTE | ~2024-03-16 | CT_ITS ---
EXAMINATION: CT CHEST WITHOUT CONTRAST CLINICAL INFORMATION: Dyspnea, fall, pain. COMPARISON: 01/14/[address] abdomen and pelvis 05/01/2023. TECHNIQUE: Multidetector volumetric CT imaging of the chest was done. Axial MIP volume rendering provided. Sagittal and coronal reformatted images were obtained. This CT examination was performed using dose optimization techniques as appropriate, variously including the following: *Automated exposure control *Adjustment of mA and/or kV according to patient size (this includes techniques or standardized protocols for targeted exams where dose is matched to indication/reason for exam; i.e. extremities or head) *Use of iterative reconstruction technique DLP: 306 mGy-cm FINDINGS: PULMONARY NODULES: -Limited detection of tiny nodules due to respiratory motion artifact. -No grossly suspicious nodules identified. There are a few scattered small calcified granulomata noted. LUNGS: -Bibasilar atelectatic changes are present, with minor, as well as mild linear atelectasis or scarring in the posterior inferior right upper lobe, posterior lingula, and dependent bilateral lower lobes. -No evidence of pneumonic infiltrate or consolidation. No abnormal groundglass opacities. -No pleural effusion or pneumothorax. -Small airways appear normal. No bronchiectasis or wall thickening. -Central airways are patent. MEDIASTINUM: -Thyroid is poorly seen and may be surgically absent. -No adenopathy present. -Mild cardiac enlargement present. No pericardial effusion. There is aortic annular calcification. -Aorta and main pulmonary artery are not nonaneurysmal. Moderate calcific atheromatous change of the aorta. -Normal esophagus. -No mediastinal mass. CORONARY ARTERY CALCIFICATION: -Mild to moderate three-vessel coronary calcification and most notable LAD. AXILLA/CHEST WALL: -No masses or abnormal lymph nodes. UPPER ABDOMEN: -Geographic fatty infiltration of the liver, mainly involving the left hepatic lobe. There appears to be atrophic changes of the left hepatic lobe when compared with the prior CT of 2016. This was also present on CT abdomen and pelvis 05/01/2023 and appears stable. No-moderate fatty atrophy of the pancreas. -Vascular calcifications. -Remainder of the imaged upper abdominal structures appear normal. OSSEOUS STRUCTURES: -No fractures or suspicious bone lesions. -Mild to moderate dextroconvex scoliosis of the thoracic spine with associated mild to moderate degenerative spondylosis. CT/CT chest wo IV con IMPRESSION: 1. No acute abnormalities of the thorax. 2. Aside from minor atelectasis, the lungs are clear. 3. Mild cardiac enlargement present. 4. Stable geographic fatty infiltration of the liver, predominantly involving the left hepatic lobe, with stable appearance from 05/01/2023. Left hepatic lobe atrophy has developed since 2017, of uncertain significance or etiology. Fleischner guidelines were followed. Electronically signed by: Satnam Do MD 03/17/2024 11:08 AM [facility]
--- NOTE | ~2024-03-16 | XR_ITS ---
EXAMINATION: XR CHEST CLINICAL INFORMATION: sob COMPARISON: 10/04/2023. TECHNIQUE: 2 views of the chest were obtained. FINDINGS: Heart appears mildly enlarged. There are findings suggesting left atrial enlargement. Mediastinal and hilar contours are normal. Mild aortic calcification with normal contour. Lungs demonstrate minor left lower lobe atelectasis. Lungs otherwise appear clear. There is no pneumothorax or pleural effusion. Previously seen multifocal infiltrates have resolved. There is no focal osseous or soft tissue abnormality. XR/XR chest 2V IMPRESSION: 1. Mild cardiac enlargement, with evidence of left atrial enlargement. 2. Minor atelectasis left lower lobe. 3. Otherwise, no active disease. Electronically signed by: Satnam Do MD 03/17/2024 10:53 AM [facility]
--- NOTE | 2024-03-16 18:12 | ED.FALL ---
HPI - Fall General Chief Complaint: Fall Stated Complaint: FALL AT HOME Time Seen by Provider: 03/16/24 18:03 Source: patient and EMS Mode of arrival: EMS Limitations: no limitations History of Present Illness ED Provider: AILYN HPI Narrative: 79 yo female with PMH of CHF, CKD, CHF with preserved EF, acute on chronic resp failure, CAD, parkinsons, T2DM, hypothyroidism, HLD, afib on eliquis here with c/o trying to reach for something on the refrigerator then fell right on her buttocks no head strike but has sig pain in R buttock. She is NV intact, no vomiting. Hurts directly on the right buttock. 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) Fall from: standing Fall witnessed: no Place fall occurred: home Loss of consciousness: none Prolonged down time: no Symptoms prior to fall: none Context: tripped/slipped Location of injury: buttocks Severity: moderate Quality: dull Associated symptoms (after fall): denies Related Data Home Medications ?Medication ?Instructions ?Recorded ?Confirmed alprazolam 1 mg tablet 1 mg PO TID 03/19/20 03/16/24 losartan 100 mg tablet 100 mg PO DAILY 03/19/20 03/16/24 metoprolol tartrate 25 mg tablet 25 mg PO BID 03/19/20 03/16/24 cyanocobalamin (vitamin B-12) 1,000 mcg IM Q28D 03/29/20 03/16/24 1,000 mcg/mL injection solution lancets #100 ea 04/18/20 02/09/24 blood sugar diagnostic (Contour 02/18/21 02/09/24 Next Test Strips) 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 meter (Contour Next 02/18/21 02/09/24 One Meter) levothyroxine 175 mcg tablet 175 mcg PO DAILY 06/17/22 03/16/24 paroxetine HCl 40 mg tablet 40 mg PO DAILY 06/17/22 03/16/24 amlodipine 5 mg tablet 5 mg PO DAILY 06/25/23 03/16/24 ferrous sulfate 325 mg (65 mg 325 mg PO DAILY 10/04/23 03/16/24 iron) tablet carbidopa 25 mg-levodopa 100 mg 1 tab PO TID 07/09/24 12/04/24 tablet furosemide 20 mg tablet (Lasix) 40 mg PO DAILY 11/03/23 03/16/24 insulin degludec 100 unit/mL (3 48 unit subcut DAILY 01/20/24 03/16/24 mL) subcutaneous pen (Tresiba FlexTouch U-100 insulin) cyclobenzaprine 10 mg tablet 10 mg PO TID 03/16/24 03/16/24 hydrocodone 5 mg-acetaminophen 325 1 tab PO Q6H PRN pain 03/16/24 03/16/24 mg tablet Previous Rx's ?Medication ?Instructions ?Recorded pen needle, diabetic 31 gauge x #100 ea 04/28/2006/26 cholecalciferol (vitamin D3) 50 50 mcg PO DAILY 30 days #90 caps 08/29/21 mcg (2,000 unit) capsule atorvastatin 40 mg tablet 40 mg PO BEDTIME #30 tabs 03/18/22 apixaban 5 mg tablet (Eliquis) 5 mg PO BID #180 tabs 03/31/23 empagliflozin 10 mg tablet 10 mg PO DAILY #60 tabs 10/06/23 (Jardiance) 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 sensor (FreeStyle #2 ea 11/05/23 Sanjeev 3 Sensor device) 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 meter,continuous #1 ea 11/06/23 (FreeStyle Sanjeev 3 Holcomb) Allergies Allergy/AdvReac Type Severity Reaction Status Date / Time baclofen AdvReac Unknown CONFUSION, Verified 03/16/24 18:15 OUT OF IT oxycodone [From Percocet] AdvReac Unknown NAUSEA Verified 02/09/24 13:25 Review of Systems Review of Systems: Constitutional : No Fever, No Chills ENT/Mouth : No Ear Pain, No Hoarseness, No sore throat Eyes: No Eye Pain, No Swelling, No Redness, No Foreign Body Cardiovascular : No Chest Pain, No SOB Respiratory : No Cough, No Dyspnea Gastrointestinal : No Nausea, No Vomiting, No Diarrhea, No abdominal Pain Genitourinary : No Dysuria, No Hematuria Musculoskeletal : positive joint pain, No Myalgias, No Joint Swelling Skin : No Skin lacerations, No rash Neuro : No Weakness, No Numbness, No Loss of Consciousness, No Dizziness, No Headache All other systems reviewed and are negative PMFSH Past Medical History Attestation statement: The following information was validated with the patient. Source: old records reviewed Medical History (HFpEF) heart failure with preserved ejection fraction CKD (chronic kidney disease) Pulmonary hypertension Atrial fibrillation Persistent atrial fibrillation CAD (coronary artery disease) Vitamin D deficiency HLD (hyperlipidemia) T2DM (type 2 diabetes mellitus) Acute exacerbation of congestive heart failure Hypertension Parkinson disease Hypothyroid Diabetes Surgical History Hx of cardiac cath (~01/2017) Hx of carpal tunnel repair Hx of knee surgery Hx of hysterectomy Family History Family History Father No problems noted. Mother T2DM (type 2 diabetes mellitus) Brother T2DM (type 2 diabetes mellitus) Social History Social History Household Members: None Housing: House Do you presently have visiting nurse or other home services: No Alcohol intake: current Alcohol intake frequency: holidays/special occasions only Alcohol type: wine Patient Tobacco Use Status: Former Tobacco user Tobacco use type: Cigarette Smoked in Last 30 Days: No Use of substances other than those prescribed or required for medical reasons: No Advance Directives: Yes Advance Directives on File: Yes Advance Directives Date on File: 03/22/20 service: No Current occupational status: retired Physical Exam Vital Signs: Vital Signs: Last Vital Signs Temp 97.6 F 03/16/24 18:14 Pulse 66 03/16/24 18:14 Resp 16 03/16/24 18:14 BP 113/66 03/16/24 18:14 Pulse Ox 94 03/16/24 18:14 O2 Del Method Room Air 03/16/24 18:14 BMI result Body Mass Index 30.4 Appearance: Alert. Oriented X3. No acute distress. Eyes: Pupils equal, round and reactive to light. ENT: Pharynx normal. atraumatic Neck: Normal inspection. Neck supple. CVS: Normal heart rate and rhythm. Pulses normal. Respiratory: No respiratory distress. Breath sounds normal. Abdomen: Soft and nontender. Back: ttp along R buttock area I do not feel an expanding hematoma she is NV intact distally Skin: Skin warm and dry. Normal skin color. Normal skin turgor. Extremities: No lower extremity edema. No calf ttp Neuro: Oriented X 3. No motor deficit. No sensory deficit. Course Course Course Narrative: signed out to Dr. Michelle pending CT head final read Medications Administered Discontinued Medications Generic Name Dose Route Start Last Admin Trade Name Kyara PRN Reason Stop Dose Admin Hydrocodone Bitart/Acetaminophen 1 tab 03/16/24 18:21 03/16/24 18:36 Hydrocodone Bit/Acetam 5/325 Tablet PO 03/16/24 18:22 1 tab ONCE ONE Administration Ondansetron HCl 4 mg 03/16/24 18:21 03/16/24 18:36 Ondansetron Odt 4 Mg Tab.Rapdis TRANSLINGU 03/16/24 18:22 4 mg ONCE ONE Administration Medical Decision Making Medical Decision Making [facility] Narrative: 79 yo female with PMH of CHF, CKD, CHF with preserved EF, acute on chronic resp failure, CAD, parkinsons, T2DM, hypothyroidism, HLD, afib on eliquis here with c/o mechanical fall now with R buttock pain at this time CT head given eliquis use, xrays of hip and lumbar spine given DOAC Use will monitor the area frequently for any signs of expanding hematoma there is nothing on initial exam Differential Diagnosis Differential Diagnoses: The differential diagnosis associated with the presentation includes fracture, contusion Admission/Observation Consideration of admission/observation: Escalation of care including admission/observation considered family very concerned about falling and being alone they want PT/CM since she is very unsteady physician observation started at 810pm pending PT/CM Consult Healthcare Provider Management of the patient was discussed with: Business Analyst Consultant Lab Data [facility] Lab Attestation statement: I reviewed the patient's lab results. Independent Interpretation I performed an independent interpretation of an: Plain X-Ray (no fracture) and CT Scan (no ICH) Radiology Impression Discussion of test interpretation with radiology: I have reviewed the radiologist's reading. Independent Historian Clinical information obtained from an independent historian. History obtained from or confirmed by: EMS and Other (daughters) External Record Review External record reviewed: Outpatient record Discharge Plan Discharge Clinical Impression: At high risk for falls Contusion of buttock Qualifiers: Encounter type: initial encounter Qualified Code(s): S30.0XXA - Contusion of lower back and pelvis, initial encounter Patient Disposition: Still a Patient Prescriptions: No Action (DME) pen needle, diabetic 31 gauge x 3/16 needle See Rx Instructions subcut DIRECTED Qty: 100 11RF Rx Instructions: 4x daily cholecalciferol (vitamin D3) 50 mcg (2,000 unit) capsule 50 mcg PO DAILY 30 Days Qty: 90 3RF atorvastatin 40 mg tablet 40 mg PO BEDTIME Qty: 30 0RF Eliquis 5 mg tablet 5 mg PO BID Qty: 180 3RF (DME) FreeStyle Sanjeev 3 Sensor Device See Rx Instructions .ROUTE .MEDSUPPLY Qty: 2 11RF Rx Instructions: As directed E11.8 (DME) FreeStyle Sanjeev 3 Holcomb Misc See Rx Instructions .ROUTE .MEDSUPPLY Qty: 1 0RF Rx Instructions: As directed E&M code 11.8 alprazolam 1 mg Tablet 1 mg PO TID losartan 100 mg Tablet 100 mg PO DAILY metoprolol tartrate 25 mg Tablet 25 mg PO BID paroxetine HCl 40 mg tablet 40 mg PO DAILY ferrous sulfate 325 mg (65 mg iron) Tablet 325 mg PO DAILY Jardiance 10 mg Tablet 10 mg PO DAILY Qty: 60 0RF cyclobenzaprine 10 mg tablet 10 mg PO TID hydrocodone-acetaminophen 5-325 mg tablet 1 tab PO Q6H PRN (Reason: pain) (DME) lancets Misc See Rx Instructions .ROUTE TID Qty: 100 Rx Instructions: As directed cyanocobalamin (vitamin B-12) 1,000 mcg/mL solution 1,000 mcg IM Q28D Patient Comments: per patient and daughter, last injection was last week, they are unsure what day. (DME) Contour Next Test Strips Strip See Rx Instructions .Route Rx Instructions: As directed 3 times a day (DME) 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 meter [Contour Next One Meter] Misc See Rx Instructions .Route Rx Instructions: As directed Tresiba FlexTouch U-100 100 unit/mL (3 mL) insulin pen 48 unit subcut DAILY furosemide [Lasix] 20 mg tablet 40 mg PO DAILY levothyroxine 175 mcg tablet 175 mcg PO DAILY amlodipine 5 mg tablet 5 mg PO DAILY carbidopa-levodopa 25-100 mg tablet 1 tab PO TID Print Language: Swedish
[2024-03-16 18:14] VITALS: BP 113/66; BP 133/70; PULSE 66; RESP 16; TEMP 36.4; O2SAT 94; O2SAT 99; BMI 30.4
[2024-03-16] MEDS: HYDROcodone Bit/Acetam 5/325 TABLET 1 TAB PO (18:36)
[2024-03-16] MEDS: Ondansetron ODT 4 MG TAB.RAPDIS TRANSLINGU (18:36)
--- NOTE | 2024-03-16 19:30 | PC.NURSE ---
This technical report writer assumed care of this Pt at 1900. Pt A&Ox3, reports 7/10 right side buttocks pain worsening with movement. Pt reports fall at home, does not use any assistive devices. Daughter at bedside.
--- NOTE | 2024-03-16 20:38 | PHA.MEDREC ---
Pharmacy Consult ? Medication Reconciliation Pharmacy has completed the medication reconciliation.
[2024-03-16 22:05] VITALS: BP 105/55; PULSE 65; RESP 16; TEMP 36.6; O2SAT 94
[2024-03-16] MEDS: ALPRAZolam 0.5 MG TABLET 1 MG PO (22:09)
[2024-03-16] MEDS: Atorvastatin Calcium 40 MG TABLET PO (22:11)
[2024-03-16] MEDS: Cyclobenzaprine HCl 10 MG TABLET PO (22:11)
[2024-03-16] MEDS: Carbidopa/Levodopa 25/100 TABLET 1 TAB PO (22:12)
[2024-03-16 22:17] VITALS: BP 119/68; PULSE 68; RESP 18
[2024-03-16] MEDS: Metoprolol Tartrate 25 MG TABLET PO (22:17)
--- NOTE | 2024-03-16 22:36 | MHC.CM.ED ---
CM met with patient at the request of Dr. Benites. Pt lives in senior housing. Lives alone. No services or DME. Independent. Drives. Healing from Shingles around r flank/abd. Lost balance reaching for some mail on top of her refrigerator. Has Hx Parkinson's. Fell hitting back on cabinets. C/O r hip pain. HCP on file. Agreeable to PT evaluation in the am. Daughter/HCP Brittany concerned about balance/gait, pleased with PT assessment. CM discussed 3 midnight rule with patient and daughter. They are aware that Medicare will not cover STR without a qualifying stay. Will refer to acute rehab. Pt will move to overflow. CM will follow for safe discharge plan.
[2024-03-16 23:00] LABS: Glucose, Whole Blood 110 mg/dL (60-115)
--- NOTE | 2024-03-16 23:31 | PC.NURSE ---
Received patient from ED, transferred to Overflow 4. Patient changed into hospital attire. Belongings at bedside/in room. Call lombardo within reach. Denies needs at this time. Care ongoing by this RN.
[2024-03-17] VITALS (14 sets, daily range): BP systolic 91–121; BP diastolic 50–67; PULSE 59–78; RESP 16–20; TEMP 36.4–36.9; O2SAT 78–95; BMI 30.7
--- NOTE | 2024-03-17 03:22 | MHC.EDTECH ---
This tech took over care of patient at 0300AM,rounded and introduced self to pt,pt appears comfortable,call lombardo in reach
--- NOTE | 2024-03-17 05:30 | PC.NURSE ---
This RN & dictaphone typist (Kelly) to bedside to perform round of vitals. Pt is alert & oriented, skin PW&D, answering all questions appropriately, denies any complaints of pain or shortness of breath. Noted to have room air oxygen saturation of 78-80%. Lungs clear to auscultation by this RN. Pt was placed on 3L oxygen via NC with slight increase to 85% with good pleth. Pt repositioned to high fowlers/upright position in bed, encouraged to take deep breaths. blooming mill supervisor (Judit Perdomo) contacted by this RN, also spoke with over the phone and contacted Respiratory Therapist (Hank Feng). Patient placed on nonrebreather, and oxygen saturation increased to 93%. Pt returned to ED, Bed 4 for further monitoring & evaluation. Pt has hx of CHF & hypoxia in the past.
--- NOTE | 2024-03-17 05:31 | MHC.EDTECH ---
This engineering technical writer went to do rounds and vitals on patient,patient's O2 sat was 78% on room air, RN was made aware,patient was placed on 3L VNC by RN,patient sats went up to 85%, then placed on non rebreather sats are 93%,RN at bedside
[2024-03-17 06:51] LABS: MANUAL DIFF FLAG NO
[2024-03-17 07:00] LABS: Basophils Absolute Auto 0.1 X10*3/uL (0.0-0.2); Basophils Percent Auto 0.5 % (0-2); Eosinophils Absolute Auto 0.2 X10*3/uL (0.0-0.4); Eosinophils Percent Auto 1.6 % (0-4); Hematocrit 54.1 % (37.0-47.0); Hemoglobin 17.9 g/dl (12.0-16.0); Imm Gran Abs Auto 0.05 X10*3/uL (0.00-0.03); Imm Gran Pct Auto 0.5 % (0.0-0.4); Lymphocytes Absolute Auto 0.9 X10*3/uL (1.2-4.9); Lymphocytes Percent Auto 8.2 % (20-40); Mean Corpuscular HGB Conc 33.1 g/dl (31.0-35.0); Mean Corpuscular Hemoglobin 31.4 pg (27.0-33.0); Mean Corpuscular Volume 94.9 fL (80.0-98.0); Mean Platelet Volume 11.7 fL (9.4-12.3); Monocytes Absolute Auto 0.8 X10*3/uL (0.1-1.2); Monocytes Percent Auto 7.4 % (2-11); Neutrophils Absolute Auto 8.6 x10*3/uL (2.0-8.3); Neutrophils Percent Auto 81.8 % (45-73); Platelet Count 159 X10*3/uL (160-400); Red Cell Distribution Width 13.9 % (11.0-16.0); White Blood Count 10.5 X10*3/uL (4.8-10.8)
[2024-03-17 07:09] LABS: Alanine Aminotransferase 28 U/L (0-31); Albumin Level 4.2 g/dL (3.5-5.0); Alkaline Phosphatase 140 U/L (39-117); Anion Gap 18 (12-20); Aspartate Amino Transferase 48 U/L (5-31); Bilirubin Total 1.1 mg/dL (0.0-1.0); Blood Urea Nitrogen 29 mg/dL (9-16); Calcium 9.9 mg/dL (8.4-10.2); Carbon Dioxide 27 mmol/L (22-29); Chloride 100 mmol/L (96-108); Creatinine Clr Calc Pharmacy 28.6; Estimated Glomerular Filt Rate 33; Glucose Random 131 mg/dL (60-115); Potassium 4.2 mmol/L (3.3-5.1); Sodium 141 mmol/L (135-145); Total Protein 7.6 g/dL (6.5-8.0)
[2024-03-17 07:12] LABS: B Type Natriuretic Peptide 245 pg/mL (<100)
[2024-03-17] MEDS: Levothyroxine Sodium 175 MCG TABLET PO (07:24)
[2024-03-17 07:29] LABS: Influenza A PCR NEGATIVE (Negative); Influenza B PCR NEGATIVE (Negative); Resp Syncy Virus RNA Qual PCR NEGATIVE (Negative); SARS COV2 PCR INHOUSE NEGATIVE (Negative)
[2024-03-17 07:46] LABS: Glucose, Whole Blood 121 mg/dL (60-115)
--- NOTE | 2024-03-17 07:52 | PC.NURSE ---
pt is alert and oriented, skin pwd, respirations even and unlabored, ls diminished in the lower bases with faint crackles on the right lower base, pt's saturation varies anywhere from 95-89% on 3L, pt is reporting mid to lower back pain at 7/10 and right hip pain, pt is also reporting that she has shingles that started about two-three weeks ago, pt does have a faint rash on her left side of the lower abd and some on the left lower back area. no peding edema on the lower extremities, pt set up with her breakfast fredrick
[2024-03-17] MEDS: Insulin Glargine,Hum.rec.anlog 100 UNIT/ML 10 ML VIAL 34 UNIT SUBCUT (10:11)
[2024-03-17] MEDS: Empagliflozin 10 MG TABLET PO (10:12)
[2024-03-17] MEDS: ALPRAZolam 0.5 MG TABLET 1 MG PO ×2 (10:12→22:14)
[2024-03-17] MEDS: Losartan Potassium 50 MG TABLET 100 MG PO (10:12)
[2024-03-17] MEDS: PARoxetine HCL 40 MG TABLET PO (10:12)
[2024-03-17] MEDS: Furosemide 40 MG TABLET PO (10:13)
[2024-03-17] MEDS: Cholecalciferol (Vitamin D3) 25 MCG TABLET 50 MCG PO (10:13)
[2024-03-17] MEDS: Carbidopa/Levodopa 25/100 TABLET 1 TAB PO ×3 (10:14→22:14)
[2024-03-17] MEDS: Metoprolol Tartrate 25 MG TABLET PO ×2 (10:14→22:14)
[2024-03-17] MEDS: Apixaban 5 MG TABLET PO ×2 (10:14→22:14)
[2024-03-17] MEDS: Ferrous Sulfate 324 MG TABLET.DR PO (10:14)
[2024-03-17] MEDS: amLODIPine Besylate 5 MG TABLET PO (10:14)
[2024-03-17] MEDS: Cyclobenzaprine HCl 10 MG TABLET PO (10:15)
--- NOTE | 2024-03-17 12:21 | MHC.CM.ED ---
Patient remains in ER. Physical therapy eval completed. Short term rehab is not indicated. Went to meet with patient bedside in regards to discharge planning. Patient is currently receiving IV Lasix and on oxygen. Patient is not on oxygen at home. Unsure if home oxygen can be arranged from ER. Reached out to Kenneth, resp therapist. Waiting for response. Dr Rodriguez made aware. Continue to monitor for d/c needs.
--- NOTE | 2024-03-17 12:21 | PC.NURSE ---
holding the lasix at this time because the pt's bp is soft/lower 108/57 attempted to trial the pt off the oxygen but dropped to 81% with a perfect pleth
[2024-03-17 12:57] LABS: ABG Base Excess 3.9 mmol/L; ABG HCO3 30 mmol/L (22-26); ABG pCO2 52 mmHg (32-45); ABG pH 7.37 (7.35-7.45); ABG pO2 73 mmHg (83-108)
[2024-03-17] MEDS: HYDROcodone Bit/Acetam 5/325 TABLET 1 TAB PO (15:08)
--- NOTE | 2024-03-17 15:56 | P.HPHOSP_ITS ---
History of Present Illness Date of Service: 03/17/24 Attending physician on admission: Adrian Garrido Chief Complaint: hypoxia This is a 79-year-old female with history of Parkinson's disease, atrial fibrillation on Eliquis, diabetes, hypertension, CKD who presented to the emergency department after a fall and was subsequently found to be hypoxic. She denied any shortness of breath, cough, dyspnea on exertion, orthopnea or chest pain. She denies any recent sick contacts. In the ED they attempted to wean her off of oxygen and each time her O2 saturation dropped to the 80s. Chest CT as well as CTA were both unremarkable. Labwork largely unremarkable as well. Patient reporting right hip pain but has been able to move her right leg and ambulate, imaging in the emergency department unremarkable. Due to persistent hypoxia the decision was made to admit her overnight for observation. Review of Systems 2 Review of Systems: Yes all other systems are reviewed and are negative Constitutional: Constitutional: Denies chills and Denies fever(s) ENT: Denies dizziness Cardiovascular: Cardiovascular: Denies chest pain, Denies palpitations, Denies dyspnea, Denies orthopnea and Denies paroxysmal nocturnal dyspnea Respiratory: Respiratory: Denies cough and Denies dyspnea Gastrointestinal: Gastrointestinal: Denies abdominal pain, Denies nausea and Denies vomiting Neurologic: Denies dizziness Endocrine: Endocrine: Denies palpitations [facility] Medical History (HFpEF) heart failure with preserved ejection fraction CKD (chronic kidney disease) Pulmonary hypertension Atrial fibrillation Persistent atrial fibrillation CAD (coronary artery disease) Vitamin D deficiency HLD (hyperlipidemia) T2DM (type 2 diabetes mellitus) Acute exacerbation of congestive heart failure Hypertension Parkinson disease Hypothyroid Diabetes Family History Father No problems noted. Mother T2DM (type 2 diabetes mellitus) Brother T2DM (type 2 diabetes mellitus) Surgical History Hx of cardiac cath (~01/2017) Hx of carpal tunnel repair Hx of knee surgery Hx of hysterectomy Social History Household Members: None Housing: House Do you presently have visiting nurse or other home services: No Alcohol intake: current Alcohol intake frequency: holidays/special occasions only Alcohol type: wine Patient Tobacco Use Status: Former Tobacco user Tobacco use type: Cigarette Smoked in Last 30 Days: No Use of substances other than those prescribed or required for medical reasons: No Advance Directives: Yes Advance Directives on File: Yes Advance Directives Date on File: 03/22/20 service: No Current occupational status: retired Meds Allergies Allergy/AdvReac Type Severity Reaction Status Date / Time baclofen AdvReac Unknown CONFUSION, Verified 03/16/24 18:15 OUT OF IT oxycodone [From Percocet] AdvReac Unknown NAUSEA Verified 02/09/24 13:25 Active Medications: Current Medications Acetaminophen (Acetaminophen 325 Mg Tablet) 650 mg PO Q6H PRN PRN Reason: Pain, Mild (Pain Scale 1-3), fever or headache Hydrocodone Bitart/Acetaminophen (Hydrocodone Bit/Acetam 5/325 Tablet) 1 tab PO Q6H PRN PRN Reason: Pain, Severe (Pain Scale 7-10) Last Admin: 03/17/24 15:08 Dose: 1 tab Alprazolam (Alprazolam 0.5 Mg Tablet) 1 mg PO TID [facility] Last Admin: 03/17/24 15:09 Dose: Not Given Amlodipine Besylate (Amlodipine Besylate 5 Mg Tablet) 5 mg PO DAILY [facility]; Protocol Last Admin: 03/17/24 10:14 Dose: 5 mg Apixaban (Apixaban 5 Mg Tablet) 5 mg PO BID [facility] Last Admin: 03/17/24 10:14 Dose: 5 mg Atorvastatin Calcium (Atorvastatin Calcium 40 Mg Tablet) 40 mg PO BEDTIME [facility] Last Admin: 03/16/24 22:11 Dose: 40 mg Calcium Carbonate (Calcium Carbonate 750 Mg Tab.Chew) 750 mg PO Q4H PRN PRN Reason: Heartburn Carbidopa/Levodopa (Carbidopa/Levodopa 25/100 Tablet) 1 tab PO TID [facility] Last Admin: 03/17/24 15:00 Dose: 1 tab Cyanocobalamin (Cyanocobalamin (Vitamin B-12) 1,000 Mcg/Ml Vial) 1,000 mcg IM Q28D [facility] Cyclobenzaprine HCl (Cyclobenzaprine Hcl 10 Mg Tablet) 10 mg PO TID [facility] Last Admin: 03/17/24 15:10 Dose: Not Given Empagliflozin (Empagliflozin 10 Mg Tablet) 10 mg PO DAILY [facility] Last Admin: 03/17/24 10:12 Dose: 10 mg Ferrous Sulfate (Ferrous Sulfate 324 Mg Tablet.) 324 mg PO DAILY [facility] Last Admin: 03/17/24 10:14 Dose: 324 mg Furosemide (Furosemide 40 Mg Tablet) 40 mg PO DAILY [facility]; Protocol Last Admin: 03/17/24 10:13 Dose: 40 mg Insulin Glargine (Insulin Glargine,Hum.Rec.Anlog 100 Unit/Ml 10 Ml Vial) 34 unit SUBCUT DAILY [facility] Last Admin: 03/17/24 10:11 Dose: 34 unit Levothyroxine Sodium (Levothyroxine Sodium 175 Mcg Tablet) 175 mcg PO DAILY@0600 [facility] Last Admin: 03/17/24 07:24 Dose: 175 mcg Losartan Potassium (Losartan Potassium 50 Mg Tablet) 100 mg PO DAILY [facility]; Protocol Last Admin: 03/17/24 10:12 Dose: 100 mg Melatonin (Melatonin 3 Mg Tablet) 6 mg PO BEDTIME PRN PRN Reason: Insomnia Metoprolol Tartrate (Metoprolol Tartrate 25 Mg Tablet) 25 mg PO BID [facility]; Protocol Last Admin: 03/17/24 10:14 Dose: 25 mg Paroxetine HCl (Paroxetine Hcl 40 Mg Tablet) 40 mg PO DAILY [facility] Last Admin: 03/17/24 10:12 Dose: 40 mg Sodium Chloride (0.9 % Sodium Chloride Flush 3 Ml Syringe) 3 [facility] Vitamin D (Cholecalciferol (Vitamin D3) 25 Mcg Tablet) 50 mcg PO DAILY [facility] Last Admin: 03/17/24 10:13 Dose: 50 mcg Home Medications ?Medication ?Instructions ?Recorded ?Confirmed ?Last Taken ?Type alprazolam 1 mg tablet 1 mg PO TID 03/19/20 03/16/24 10/03/23 History losartan 100 mg tablet 100 mg PO DAILY 03/19/20 03/16/24 10/03/23 History metoprolol tartrate 25 mg tablet 25 mg PO BID 03/19/20 03/16/24 10/03/23 History cyanocobalamin (vitamin B-12) 1,000 mcg IM Q28D 03/29/20 03/16/24 04/30/23 History 1,000 mcg/mL injection solution lancets #100 ea 0102/09/24 04/30/23 History blood sugar diagnostic (Contour 02/18/21 02/09/24 04/30/23 History Next Test Strips) 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 meter (Contour Next 02/18/21 02/09/24 04/30/23 History One Meter) levothyroxine 175 mcg tablet 175 mcg PO DAILY 06/17/22 03/16/24 10/03/23 History paroxetine HCl 40 mg tablet 40 mg PO DAILY 06/17/22 03/16/24 10/03/23 History amlodipine 5 mg tablet 5 mg PO DAILY 06/25/23 03/16/24 10/03/23 History ferrous sulfate 325 mg (65 mg 325 mg PO DAILY 10/04/23 03/16/24 Unknown History iron) tablet carbidopa 25 mg-levodopa 100 mg 1 tab PO TID 10/20/23 03/16/24 Unknown History tablet furosemide 20 mg tablet (Lasix) 40 mg PO DAILY 11/03/23 03/16/24 Unknown History insulin degludec 100 unit/mL (3 48 unit subcut DAILY 01/20/24 03/16/24 Unknown History mL) subcutaneous pen (Tresiba FlexTouch U-100 insulin) cyclobenzaprine 10 mg tablet 10 mg PO TID 03/16/24 03/16/24 Unknown History hydrocodone 5 mg-acetaminophen 325 1 tab PO Q6H PRN pain 03/16/24 03/16/24 Unknown History mg tablet Physical Exam 2 Vital Signs and Narrative: Vital Signs: Last Vital Signs Temp 97.9 F 03/17/24 15:00 Pulse 70 03/17/24 15:00 Resp 18 03/17/24 15:00 BP 118/60 03/17/24 15:00 Pulse Ox 90 L 03/17/24 15:00 O2 Del Method Nasal Cannula 03/17/24 15:00 O2 Flow Rate 3 03/17/24 15:00 BMI result Body Mass Index 30.4 Const: General: cooperative, comfortable, no acute distress, alert and awake Nutritional Appearance: overweight Orientation/consciousness: oriented to person and oriented to place Resp: Other: rales left base primarily Effort & Inspection: normal respiratory effort, able to speak in complete sentences, no respiratory distress and no use of accessory muscles Cardio: Jugular venous distension: no JVD Rate: regular rate GI: Inspection: No distended Palpation (GI): Soft to palpation and nontender Neuro: General: oriented to person, oriented to place, moves all extremities and CN's II-XI intact bilaterally Extrem: General: Yes no pedal edema Results Labs 03/17/24 06:44 03/17/24 06:44 Labs: Laboratory Results - last 24 hr 03/16/24 03/17/24 03/17/24 22:56 06:44 06:45 MCV 94.9 MCH 31.4 MCHC 33.1 RDW 13.9 Plt Count 159 L MPV 11.7 Immature Gran % (Auto) 0.5 H Neut % (Auto) 81.8 H Lymph % (Auto) 8.2 L [place] % (Auto) 7.4 Eos % (Auto) 1.6 Baso % (Auto) 0.5 Lymph # (Auto) 0.9 L [place] # (Auto) 0.8 Eos # (Auto) 0.2 Baso # (Auto) 0.1 Abs Immat Gran (auto) 0.05 H Absolute Neuts (auto) 8.6 H Absolute Nucleated RBC 0.000 Nucleated RBC % (auto) 0.0 O2 Saturation ABG pH at Pt Temp ABG pCO2 at Pt Temp ABG pO2 at Pt Temp ABG HCO3 ABG Base Excess (Actual) Anion Gap 18 Estim Creat Clear Calc 28.6 Estimated GFR 33 POC Glucose 110 Random Glucose 131 H Calcium 9.9 Total Bilirubin 1.1 H AST 48 H ALT 28 Alkaline Phosphatase 140 H Troponin I High Sens 42.0 H B-Natriuretic Peptide 245 H Total Protein 7.6 Albumin 4.2 Influenza Type A (PCR) NEGATIVE Influenza Type B (PCR) NEGATIVE RSV RNA Qual (PCR) NEGATIVE SARS-CoV-2 RNA (RT-PCR) NEGATIVE 03/17/24 03/17/24 07:40 12:47 MCV MCH MCHC RDW Plt Count MPV Immature Gran % (Auto) Neut % (Auto) Lymph % (Auto) [place] % (Auto) Eos % (Auto) Baso % (Auto) Lymph # (Auto) [place] # (Auto) Eos # (Auto) Baso # (Auto) Abs Immat Gran (auto) Absolute Neuts (auto) Absolute Nucleated RBC Nucleated RBC % (auto) O2 Saturation 93.0 ABG pH at Pt Temp 7.37 ABG pCO2 at Pt Temp 52 H ABG pO2 at Pt Temp 73 L ABG HCO3 30 H ABG Base Excess (Actual) 3.9 Anion Gap Estim Creat Clear Calc Estimated GFR POC Glucose 121 H Random Glucose Calcium Total Bilirubin AST ALT Alkaline Phosphatase Troponin I High Sens B-Natriuretic Peptide Total Protein Albumin Influenza Type A (PCR) Influenza Type B (PCR) RSV RNA Qual (PCR) SARS-CoV-2 RNA (RT-PCR) Imaging Radiologist's Impressions: Impressions Hip/Pelvis X-Ray 03/16/24 18:21 IMPRESSION: No acute fracture or dislocation. Mild to moderate degenerative changes of the right hip joint. Electronically signed by: Theodora Thompson MD 03/16/2024 07:32 PM EST RP Lumbar Spine X-Ray 03/16/24 18:21 IMPRESSION: Mild spondylosis of the lumbar spine, as above detailed. Electronically signed by: Theodora Thompson MD 03/16/2024 07:34 PM EST RP Head CT 03/16/24 19:10 IMPRESSION: 1. No evidence of acute intracranial hemorrhage or edematous territorial infarction. 2. Mild to moderate underlying microangiopathy and generalized cerebral volume loss. Electronically signed by: Sage Brooke DO 03/16/2024 09:22 PM EST RP Chest X-Ray 03/17/24 06:25 IMPRESSION: 1. Mild cardiac enlargement, with evidence of left atrial enlargement. 2. Minor atelectasis left lower lobe. 3. Otherwise, no active disease. Electronically signed by: Satnam Do MD 03/17/2024 10:53 AM EST RP Chest CT 03/17/24 07:21 IMPRESSION: 1. No acute abnormalities of the thorax. 2. Aside from minor atelectasis, the lungs are clear. 3. Mild cardiac enlargement present. 4. Stable geographic fatty infiltration of the liver, predominantly involving the left hepatic lobe, with stable appearance from 05/01/2023. Left hepatic lobe atrophy has developed since 2017, of uncertain significance or etiology. Fleischner guidelines were followed. Electronically signed by: Satnam Do MD 03/17/2024 11:08 AM EST RP Chest CTA 03/17/24 12:30 IMPRESSION: 1. No CT angiographic evidence of acute pulmonary embolism. 2. No focal airspace consolidation. Bibasilar atelectasis, unchanged. 3. Mild cardiomegaly, unchanged. VTE: Negative. Fleischner guidelines were followed. Electronically signed by: David Russell MD 03/17/2024 03:42 PM [facility] Workstation: [id number] Assessment and Plan (1) Hypoxemia: Status: Acute Plan This is a 79-year-old female with history of diabetes, hypertension, CKD, HFpEF, atrial fibrillation on Eliquis who presented after mechanical fall found to have hypoxia acute hypoxia seems most likely due to atelectasis/poor inspiratory effort + some component of obesity hypoventilation possibly exacerbated by sedating medications CT and CTA negative -incentive spirometry, prn nebs -reduce dose of flexeril and change to prn -will repeat trop, although appears chronically elevated likely due to reduced clearance due to renal dz PAF continue eliquis, lopressor Hypothyroidism Continue Synthroid Diabetes SSI, POCs, ADA diet continue Lantus Parkinson's disease Continue Sinemet HFpEF does not appear fluid overloaded, BNP at baseline Received 20 IV Lasix in ED continue baseline lasix, jardiance Mood Continue baseline meds Hypertension Continue losartan, metoprolol, Norvasc HLD continue statin CKD3 renal function at baseline dvt ppx - eliquis Quality Stroke Does the patient have a stroke diagnosis?: No VTE Prior VTE?: No VTE Risk Level:: Medical - moderate - high VTE Device Contraindication: N/A - Device Ordered VTE Drug Contraindication: N/A - Med Ordered
--- NOTE | 2024-03-17 16:30 | PC.NURSE ---
called josé at pharmacy in regards to the Xanax and Flexeril being ordered as TID, pt states that she uses these as PRN not as scheduled, he will change it in MAR
[2024-03-17 16:51] LABS: Troponin-I High Sensitivity 36.9 ng/L (<3.5-17.0)
[2024-03-17 17:09] LABS: Glucose, Whole Blood 185 mg/dL (60-115)
[2024-03-17] MEDS: Insulin Lispro 100 UNIT/ML 3 ML VIAL SUBCUT ×2 (18:29→22:14)
[2024-03-17 19:16] LABS: ABG Refer to POC result
[2024-03-17 19:52] LABS: Glucose, Whole Blood 241 mg/dL (60-115)
[2024-03-17] MEDS: Atorvastatin Calcium 40 MG TABLET PO (22:14)
[2024-03-17] MEDS: 0.9 % Sodium Chloride Flush 3 ML SYRINGE IVFLUSH (22:28)
[2024-03-18] VITALS (8 sets, daily range): BP systolic 98–118; BP diastolic 54–62; PULSE 65–76; RESP 16–18; TEMP 36.1–36.8; O2SAT 90–97
[2024-03-18] MEDS: Levothyroxine Sodium 175 MCG TABLET PO (06:30)
[2024-03-18 07:26] LABS: Glucose, Whole Blood 95 mg/dL (60-115)
--- NOTE | 2024-03-18 09:44 | MHC.CM.PN ---
Call from Yajaira of [facility]. Yajaira is following along the event that acute rehab may be indicated near time of DC.
[2024-03-18] MEDS: Insulin Glargine,Hum.rec.anlog 100 UNIT/ML 10 ML VIAL 34 UNIT SUBCUT (09:49)
[2024-03-18] MEDS: Carbidopa/Levodopa 25/100 TABLET 1 TAB PO ×3 (09:50→20:03)
[2024-03-18] MEDS: Metoprolol Tartrate 25 MG TABLET PO ×2 (09:50→20:03)
[2024-03-18] MEDS: Cholecalciferol (Vitamin D3) 25 MCG TABLET 50 MCG PO (09:51)
[2024-03-18] MEDS: Empagliflozin 10 MG TABLET PO (09:51)
[2024-03-18] MEDS: Ferrous Sulfate 324 MG TABLET.DR PO (09:51)
[2024-03-18] MEDS: Apixaban 5 MG TABLET PO ×2 (09:51→20:03)
[2024-03-18] MEDS: PARoxetine HCL 40 MG TABLET PO (09:52)
[2024-03-18] MEDS: 0.9 % Sodium Chloride Flush 3 ML SYRINGE IVFLUSH ×3 (10:01→20:50)
[2024-03-18 11:27] LABS: Glucose, Whole Blood 204 mg/dL (60-115)
[2024-03-18] MEDS: Insulin Lispro 100 UNIT/ML 3 ML VIAL SUBCUT ×3 (11:44→20:48)
[2024-03-18] MEDS: HYDROcodone Bit/Acetam 5/325 TABLET 1 TAB PO ×2 (11:50→20:04)
--- NOTE | 2024-03-18 13:00 | MHC.CM.PN ---
P.T. RECOMMENDS HOME P.T. REFERRAL PLACED TO [facility] TO FOLLOW FOR SERVICES. [facility] MADE AWARE IN [facility].
--- NOTE | 2024-03-18 14:24 | P.PNIM_ITS ---
Subjective Subjective Date of Service: 03/18/24 Interval History: Seen and examined this morning Follow-up for hypoxia No respiratory symptoms Review of Systems Review of Systems: Yes all other systems are reviewed and are negative Constitutional Constitutional: Denies fever(s) Cardiovascular Cardiovascular: Denies chest pain and Denies dyspnea Respiratory Respiratory: Denies cough and Denies dyspnea Physical Exam 2 Vital Signs: Vital Signs: Last Vital Signs Temp 97.1 F 03/18/24 08:00 Pulse 68 03/18/24 09:50 Resp 16 03/18/24 08:00 BP 108/59 L 03/18/24 08:00 Pulse Ox 91 L 03/18/24 12:32 O2 Del Method Nasal Cannula 03/18/24 11:30 O2 Flow Rate 2 03/18/24 11:30 BMI result Body Mass Index 30.7 Const: General: cooperative, comfortable, no acute distress, alert and awake Nutritional Appearance: overweight Orientation/consciousness: oriented to person and oriented to place Resp: Other: rales left base primarily Effort & Inspection: normal respiratory effort, able to speak in complete sentences, no respiratory distress and no use of accessory muscles Cardio: Jugular venous distension: no JVD Rate: regular rate GI: Inspection: No distended Palpation (GI): Soft to palpation and nontender Skin: Other: crusted shingles lesions left hip/low back Neuro: General: oriented to person, oriented to place, moves all extremities and CN's II-XI intact bilaterally Extrem: General: Yes no pedal edema Objective Data Active Medications Acetaminophen (Acetaminophen 325 Mg Tablet) 650 mg PO Q6H PRN PRN Reason: Pain, Mild (Pain Scale 1-3), fever or headache Hydrocodone Bitart/Acetaminophen (Hydrocodone Bit/Acetam 5/325 Tablet) 1 tab PO Q6H PRN PRN Reason: Pain, Severe (Pain Scale 7-10) Last Admin: 03/18/24 11:50 Dose: 1 tab Documented By: RAYMUNDO Albuterol Sulfate (Albuterol Sulfate (0.042%) 1.25 Mg/3 Ml Vial.Neb) 1.25 mg INHALE RQ6H PRN PRN Reason: Shortness of Breath/Wheezing Alprazolam (Alprazolam 0.5 Mg Tablet) 1 mg PO TID PRN PRN Reason: Anxiety Last Admin: 03/17/24 22:14 Dose: 1 mg Documented By: KESHAV Amlodipine Besylate (Amlodipine Besylate 5 Mg Tablet) 5 mg PO DAILY [facility]; Protocol Last Admin: 03/18/24 10:02 Dose: Not Given Documented By: RAYMUNDO Non-Admin Reason: Decreased Blood Pressure Apixaban (Apixaban 5 Mg Tablet) 5 mg PO BID [facility] Last Admin: 03/18/24 09:51 Dose: 5 mg Documented By: RAYMUNDO Atorvastatin Calcium (Atorvastatin Calcium 40 Mg Tablet) 40 mg PO BEDTIME [facility] Last Admin: 03/17/24 22:14 Dose: 40 mg Documented By: KESHAV Calcium Carbonate (Calcium Carbonate 750 Mg Tab.Chew) 750 mg PO Q4H PRN PRN Reason: Heartburn Carbidopa/Levodopa (Carbidopa/Levodopa 25/100 Tablet) 1 tab PO TID [facility] Last Admin: 03/18/24 09:50 Dose: 1 tab Documented By: RAYMUNDO Cyanocobalamin (Cyanocobalamin (Vitamin B-12) 1,000 Mcg/Ml Vial) 1,000 mcg IM Q28D [facility] Cyclobenzaprine HCl (Cyclobenzaprine Hcl 5 Mg Tablet) 5 mg PO TID PRN PRN Reason: muscle spasm Empagliflozin (Empagliflozin 10 Mg Tablet) 10 mg PO DAILY [facility] Last Admin: 03/18/24 09:51 Dose: 10 mg Documented By: RAYMUNDO Ferrous Sulfate (Ferrous Sulfate 324 Mg Tablet.Dr) 324 mg PO DAILY [facility] Last Admin: 03/18/24 09:51 Dose: 324 mg Documented By: RAYMUNDO Furosemide (Furosemide 40 Mg Tablet) 40 mg PO DAILY [facility]; Protocol Last Admin: 03/18/24 10:02 Dose: Not Given Documented By: RAYMUNDO Non-Admin Reason: Decreased Blood Pressure Glucose (Glucose Gel 15 Gm Gel..Gram.) 15 gm PO Q15M PRN; Protocol PRN Reason: per Hypoglycemia Standing Ord. Dextrose (D10) 250 mls @ 750 mls/hr IV Q15M PRN; Protocol PRN Reason: per Hypoglycemia Standing Ord. Insulin Glargine (Insulin Glargine,Hum.Rec.Anlog 100 Unit/Ml 10 Ml Vial) 34 unit SUBCUT DAILY [facility] Last Admin: 03/18/24 09:49 Dose: 34 unit Documented By: RAYMUNDO Insulin Human Lispro (Insulin Lispro 100 Unit/Ml 3 Ml Vial) 0 unit SUBCUT QIDACHS [facility]; Protocol Last Admin: 03/18/24 11:44 Dose: 4 unit Documented By: RAYMUNDO Levothyroxine Sodium (Levothyroxine Sodium 175 Mcg Tablet) 175 mcg PO DAILY@0600 [facility] Last Admin: 03/18/24 06:30 Dose: 175 mcg Documented By: KESHAV Losartan Potassium (Losartan Potassium 50 Mg Tablet) 100 mg PO DAILY [facility]; Protocol Last Admin: 03/18/24 10:03 Dose: Not Given Documented By: RAYMUNDO Non-Admin Reason: Decreased Blood Pressure Metoprolol Tartrate (Metoprolol Tartrate 25 Mg Tablet) 25 mg PO BID [facility]; Protocol Last Admin: 03/18/24 09:50 Dose: 25 mg Documented By: RAYMUNDO Paroxetine HCl (Paroxetine Hcl 40 Mg Tablet) 40 mg PO DAILY [facility] Last Admin: 03/18/24 09:52 Dose: 40 mg Documented By: RAYMUNDO Polyethylene Glycol (Polyethylene Glycol 3350 17 Gm Powd.Pack) 17 gm PO DAILY PRN PRN Reason: Constipation Sodium Chloride (0.9 % Sodium Chloride Flush 3 Ml Syringe) 3 ml IVFLUSH QSHIFT [facility] Last Admin: 03/18/24 10:01 Dose: 3 ml Documented By: RAYMUNDO Vitamin D (Cholecalciferol (Vitamin D3) 25 Mcg Tablet) 50 mcg PO DAILY [facility] Last Admin: 03/18/24 09:51 Dose: 50 mcg Documented By: RAYMUNDO Labs 03/17/24 06:44 03/17/24 06:44 Labs: Laboratory Results - last 24 hr 03/17/24 03/17/24 03/17/24 16:23 17:05 19:48 POC Glucose 185 H 241 H Troponin I High Sens 36.9 H 03/18/24 03/18/24 07:21 11:20 POC Glucose 95 204 H Troponin I High Sens Assessment and Plan (1) Hypoxemia: Status: Acute Plan This is a 79-year-old female with history of diabetes, hypertension, CKD, HFpEF, atrial fibrillation on Eliquis who presented after mechanical fall found to have hypoxia acute hypoxia seems most likely due to atelectasis/poor inspiratory effort + some component of obesity hypoventilation possibly exacerbated by sedating medications chest CT and CTA negative -incentive spirometry, prn nebs -reduce dose of flexeril and change to prn -if no improvement will consider pulm eval, home o2 eval PAF continue eliquis, lopressor Hypothyroidism Continue Synthroid Diabetes SSI, POCs, ADA diet continue Lantus Parkinson's disease Continue Sinemet HFpEF does not appear fluid overloaded, BNP at baseline Received IV Lasix in ED with no change in condition continue baseline lasix, jardiance Mood Continue baseline meds Hypertension Continue losartan, metoprolol, Norvasc HLD continue statin CKD3 renal function at baseline dvt ppx - eliquis Quality Stroke Does the patient have a stroke diagnosis?: No VTE Prior VTE?: No VTE Risk Level:: Medical - moderate - high VTE Device Contraindication: N/A - Device Ordered VTE Drug Contraindication: N/A - Med Ordered
--- NOTE | 2024-03-18 14:59 | MHC.CM.PN ---
GORDY 03/18/24 Female 79yrs lives by herself. She is independent with all functional mobility. PT eval rec home with services. Preferences obtained and referral has been sent to [facility]. Patient would like to discharge home with family transport. DP home with or without VNA. Patients daughter Kristen will provide transportation home.
[2024-03-18 15:58] LABS: Glucose, Whole Blood 226 mg/dL (60-115)
[2024-03-18] MEDS: ALPRAZolam 0.5 MG TABLET 1 MG PO (20:03)
[2024-03-18] MEDS: Atorvastatin Calcium 40 MG TABLET PO (20:03)
[2024-03-18 20:44] LABS: Glucose, Whole Blood 184 mg/dL (60-115)
[2024-03-19 03:10] VITALS: BP 118/61; PULSE 70; RESP 16; TEMP 36; O2SAT 92
[2024-03-19] MEDS: Levothyroxine Sodium 175 MCG TABLET PO (05:37)
[2024-03-19 07:40] VITALS: BP 138/65; PULSE 70; RESP 16; TEMP 36.3; O2SAT 97
[2024-03-19 08:03] LABS: Glucose, Whole Blood 89 mg/dL (60-115)
[2024-03-19] MEDS: Carbidopa/Levodopa 25/100 TABLET 1 TAB PO ×2 (08:29→15:15)
[2024-03-19] MEDS: Acetaminophen 325 MG TABLET 650 MG PO (08:29)
[2024-03-19] MEDS: Insulin Glargine,Hum.rec.anlog 100 UNIT/ML 10 ML VIAL 34 UNIT SUBCUT (08:29)
[2024-03-19] MEDS: Ferrous Sulfate 324 MG TABLET.DR PO (08:29)
[2024-03-19] MEDS: Furosemide 40 MG TABLET PO (08:30)
[2024-03-19] MEDS: PARoxetine HCL 40 MG TABLET PO (08:30)
[2024-03-19] MEDS: Empagliflozin 10 MG TABLET PO (08:30)
[2024-03-19] MEDS: Cholecalciferol (Vitamin D3) 25 MCG TABLET 50 MCG PO (08:30)
[2024-03-19] MEDS: Losartan Potassium 50 MG TABLET 100 MG PO (08:30)
[2024-03-19] MEDS: amLODIPine Besylate 5 MG TABLET PO (08:30)
[2024-03-19] MEDS: Apixaban 5 MG TABLET PO (08:30)
[2024-03-19] MEDS: Metoprolol Tartrate 25 MG TABLET PO (08:30)
[2024-03-19] MEDS: 0.9 % Sodium Chloride Flush 3 ML SYRINGE IVFLUSH ×2 (08:32→15:15)
--- NOTE | 2024-03-19 10:07 | HO.PM.IMPN ---
Subjective Subjective Date of Service: 03/19/24 Interval History: Seen and examined this morning Follow-up for hypoxia No respiratory symptoms Review of Systems Review of Systems: Yes all other systems are reviewed and are negative Constitutional Constitutional: Denies fever(s) Cardiovascular Cardiovascular: Denies chest pain and Denies dyspnea Respiratory Respiratory: Denies cough and Denies dyspnea Physical Exam Vital Signs: Vital Signs: Last Vital Signs Temp 97.3 F 03/19/24 07:40 Pulse 70 03/19/24 07:40 Resp 16 03/19/24 07:40 BP 138/65 03/19/24 07:40 Pulse Ox 97 03/19/24 07:40 O2 Del Method Nasal Cannula 03/19/24 07:40 O2 Flow Rate 2.0 03/19/24 07:40 BMI result Body Mass Index 30.7 Appearing in no acute distress lung sounds are clear to auscultation heart regular rate rhythm, clear S1, S2 positive bowel sounds, abdomen is soft, nontender neuro patient is alert x3, no focal deficits Objective Data Active Medications Acetaminophen (Acetaminophen 325 Mg Tablet) 650 mg PO Q6H PRN PRN Reason: Pain, Mild (Pain Scale 1-3), fever or headache Last Admin: 03/19/24 08:29 Dose: 650 mg Documented By: RAYMUNDO Hydrocodone Bitart/Acetaminophen (Hydrocodone Bit/Acetam 5/325 Tablet) 1 tab PO Q6H PRN PRN Reason: Pain, Severe (Pain Scale 7-10) Last Admin: 03/18/24 20:04 Dose: 1 tab Documented By: DONOVAN Albuterol Sulfate (Albuterol Sulfate (0.042%) 1.25 Mg/3 Ml Vial.Neb) 1.25 mg INHALE RQ6H PRN PRN Reason: Shortness of Breath/Wheezing Alprazolam (Alprazolam 0.5 Mg Tablet) 1 mg PO TID PRN PRN Reason: Anxiety Last Admin: 03/18/24 20:03 Dose: 1 mg Documented By: DONOVAN Amlodipine Besylate (Amlodipine Besylate 5 Mg Tablet) 5 mg PO DAILY [facility]; Protocol Last Admin: 03/19/24 08:30 Dose: 5 mg Documented By: RAYMUNDO Apixaban (Apixaban 5 Mg Tablet) 5 mg PO BID [facility] Last Admin: 03/19/24 08:30 Dose: 5 mg Documented By: RAYMUNDO Atorvastatin Calcium (Atorvastatin Calcium 40 Mg Tablet) 40 mg PO BEDTIME [facility] Last Admin: 03/18/24 20:03 Dose: 40 mg Documented By: DONOVAN Calcium Carbonate (Calcium Carbonate 750 Mg Tab.Chew) 750 mg PO Q4H PRN PRN Reason: Heartburn Carbidopa/Levodopa (Carbidopa/Levodopa 25/100 Tablet) 1 tab PO TID [facility] Last Admin: 03/19/24 08:29 Dose: 1 tab Documented By: RAYMUNDO Cyanocobalamin (Cyanocobalamin (Vitamin B-12) 1,000 Mcg/Ml Vial) 1,000 mcg IM Q28D [facility] Cyclobenzaprine HCl (Cyclobenzaprine Hcl 5 Mg Tablet) 5 mg PO TID PRN PRN Reason: muscle spasm Empagliflozin (Empagliflozin 10 Mg Tablet) 10 mg PO DAILY [facility] Last Admin: 03/19/24 08:30 Dose: 10 mg Documented By: RAYMUNDO Ferrous Sulfate (Ferrous Sulfate 324 Mg Tablet.Dr) 324 mg PO DAILY [facility] Last Admin: 03/19/24 08:29 Dose: 324 mg Documented By: RAYMUNDO Furosemide (Furosemide 40 Mg Tablet) 40 mg PO DAILY [facility]; Protocol Last Admin: 03/19/24 08:30 Dose: 40 mg Documented By: RAYMUNDO Glucose (Glucose Gel 15 Gm Gel..Gram.) 15 gm PO Q15M PRN; Protocol PRN Reason: per Hypoglycemia Standing Ord. Dextrose (D10) 250 mls @ 750 mls/hr IV Q15M PRN; Protocol PRN Reason: per Hypoglycemia Standing Ord. Insulin Glargine (Insulin Glargine,Hum.Rec.Anlog 100 Unit/Ml 10 Ml Vial) 34 unit SUBCUT DAILY [facility] Last Admin: 03/19/24 08:29 Dose: 34 unit Documented By: RAYMUNDO Insulin Human Lispro (Insulin Lispro 100 Unit/Ml 3 Ml Vial) 0 unit SUBCUT QIDACHS [facility]; Protocol Last Admin: 03/19/24 08:15 Dose: Not Given Documented By: RAYMUNDO Non-Admin Reason: No Insulin Coverage Levothyroxine Sodium (Levothyroxine Sodium 175 Mcg Tablet) 175 mcg PO DAILY@0600 [facility] Last Admin: 03/19/24 05:37 Dose: 175 mcg Documented By: DONOVAN Losartan Potassium (Losartan Potassium 50 Mg Tablet) 100 mg PO DAILY [facility]; Protocol Last Admin: 03/19/24 08:30 Dose: 100 mg Documented By: RAYMUNDO Metoprolol Tartrate (Metoprolol Tartrate 25 Mg Tablet) 25 mg PO BID [facility]; Protocol Last Admin: 03/19/24 08:30 Dose: 25 mg Documented By: RAYMUNDO Paroxetine HCl (Paroxetine Hcl 40 Mg Tablet) 40 mg PO DAILY [facility] Last Admin: 03/19/24 08:30 Dose: 40 mg Documented By: RAYMUNDO Polyethylene Glycol (Polyethylene Glycol 3350 17 Gm Powd.Pack) 17 gm PO DAILY PRN PRN Reason: Constipation Sodium Chloride (0.9 % Sodium Chloride Flush 3 Ml Syringe) 3 ml IVFLUSH QSHIFT [facility] Last Admin: 03/19/24 08:32 Dose: 3 ml Documented By: RAYMUNDO Vitamin D (Cholecalciferol (Vitamin D3) 25 Mcg Tablet) 50 mcg PO DAILY [facility] Last Admin: 03/19/24 08:30 Dose: 50 mcg Documented By: RAYMUNDO Labs 03/17/24 06:44 03/17/24 06:44 Labs: Laboratory Results - last 24 hr 03/18/24 03/18/24 03/18/24 11:20 15:53 20:40 POC Glucose 204 H 226 H 184 H 03/19/24 07:45 POC Glucose 89 Assessment and Plan (1) Hypoxemia: Status: Acute Plan This is a 79-year-old female with history of diabetes, hypertension, CKD, HFpEF, atrial fibrillation on Eliquis who presented after mechanical fall found to have hypoxia acute hypoxia seems most likely due to atelectasis/poor inspiratory effort + some component of obesity hypoventilation possibly exacerbated by sedating medications chest CT and CTA negative -incentive spirometry, prn nebs -reduce dose of flexeril and change to prn -if no improvement will consider pulm eval, home o2 eval PAF continue eliquis, lopressor Hypothyroidism Continue Synthroid Diabetes SSI, POCs, ADA diet continue Lantus Parkinson's disease Continue Sinemet HFpEF does not appear fluid overloaded, BNP at baseline Received IV Lasix in ED with no change in condition continue baseline lasix, jardiance Mood Continue baseline meds Hypertension Continue losartan, metoprolol, Norvasc HLD continue statin CKD3 renal function at baseline dvt ppx - eliquis Quality Stroke Does the patient have a stroke diagnosis?: No VTE Prior VTE?: No VTE Risk Level:: Medical - moderate - high VTE Device Contraindication: N/A - Device Ordered VTE Drug Contraindication: N/A - Med Ordered
--- NOTE | 2024-03-19 10:16 | P.DS_ITS ---
DS: Providers Provider Date of Service: 03/19/24 Date of admission: 03/17/24 15:53 Primary care physician: Reji Molina MD DS: Diagnosis Discharge Diagnosis (1) Hypoxemia: Status: Acute DS: Summary Hospital Course Hospital Course: History and physical as per admitting provider. This is a 79-year-old female with history of Parkinson's disease, atrial fibrillation on Eliquis, diabetes, hypertension, CKD who presented to the emergency department after a fall and was subsequently found to be hypoxic. She denied any shortness of breath, cough, dyspnea on exertion, orthopnea or chest pain. She denies any recent sick contacts. In the ED they attempted to wean her off of oxygen and each time her O2 saturation dropped to the 80s. Chest CT as well as CTA were both unremarkable. Labwork largely unremarkable as well. Patient reporting right hip pain but has been able to move her right leg and ambulate, imaging in the emergency department unremarkable. Due to persistent hypoxia the decision was made to admit her overnight for observation. 79-year-old woman treated for acute hypoxia likely secondary to atelectasis versus component of obesity hypoventilation possibly exaggerated by sedating medications. Chest CT and CTA were negative for consolidation or effusion. She was treated with incentive spirometry, as needed albuterol DuoNebs. She had home O2 eval home recommended 1 L of oxygen at home. Patient is doing much better, respiratory status has improved and plan is for discharge home. PAF continue eliquis, lopressor Hypothyroidism Continue Synthroid Diabetes continue home medications Parkinson's disease Continue Sinemet HFpEF. No acute fluid overload, continue baseline Lasix and Jardiance Mood Continue baseline meds Hypertension Continue losartan, metoprolol, Norvasc HLDcontinue statin CKD3 renal function at baseline Time Attestation Discharge Coordination Time (in mins): 42 Quality: Safe Use of Opioids Does Pt have an Active Cancer Diagnosis on the Problem List?: No Quality: Stroke Does the patient have a stroke diagnosis?: No Physical Exam Vital Signs: Vital Signs: Last Vital Signs Temp 97.3 F 03/19/24 07:40 Pulse 70 03/19/24 07:40 Resp 16 03/19/24 07:40 BP 138/65 03/19/24 07:40 Pulse Ox 97 03/19/24 07:40 O2 Del Method Nasal Cannula 03/19/24 07:40 O2 Flow Rate 2.0 03/19/24 07:40 BMI result Body Mass Index 30.7 Appearing in no acute distress head is normocephalic atraumatic eyes pupils are PERRLA sclera is anicteric mouth throat mucous membranes are intact and moist neck is supple no lymphadenopathy, no JVD noted lung sounds are clear to auscultation heart regular rate rhythm, clear S1, S2 positive bowel sounds, abdomen is soft, nontender neuro patient is alert x3, no focal deficits DS: Data Data Completed and Pending Completed studies during hospitalization [Text1]: Procedures Assistance with Respiratory Ventilation, Less than 24 Consecutive Hours, Continuous Positive Airway Pressure (10/04/23) Labs on day of discharge: Laboratory Results - last 24 hr 03/18/24 03/18/24 03/18/24 11:20 15:53 20:40 POC Glucose 204 H 226 H 184 H 03/19/24 07:45 POC Glucose 89 Discharge Plan Discharge Anticipated Discharge Date/Time: 03/19/24 10:09 Patient Disposition: Home Health Service Discharge Diagnosis: Acute hypoxia secondary to atelectasis and obesity hypoventilation Referrals: [facility] [Other] - 1 Week Reji Molina MD [Primary Care Provider] - 1 Week Discharge Medications: Continued (DME) pen needle, diabetic 31 gauge x 3/16 needle See Rx Instructions subcut DIRECTED Qty: 100 11RF Rx Instructions: 4x daily cholecalciferol (vitamin D3) 50 mcg (2,000 unit) capsule 50 mcg PO DAILY 30 Days Qty: 90 3RF atorvastatin 40 mg tablet 40 mg PO BEDTIME Qty: 30 0RF Eliquis 5 mg tablet 5 mg PO BID Qty: 180 3RF (DME) FreeStyle Sanjeev 3 Sensor Device See Rx Instructions .ROUTE .MEDSUPPLY Qty: 2 11RF Rx Instructions: As directed E11.8 (DME) FreeStyle Sanjeev [address] Misc See Rx Instructions .ROUTE .MEDSUPPLY Qty: 1 0RF Rx Instructions: As directed E&M code 11.8 alprazolam 1 mg Tablet 1 mg PO TID losartan 100 mg Tablet 100 mg PO DAILY metoprolol tartrate 25 mg Tablet 25 mg PO BID paroxetine HCl 40 mg tablet 40 mg PO DAILY ferrous sulfate 325 mg (65 mg iron) Tablet 325 mg PO DAILY Jardiance 10 mg Tablet 10 mg PO DAILY Qty: 60 0RF cyclobenzaprine 10 mg tablet 10 mg PO TID hydrocodone-acetaminophen 5-325 mg tablet 1 tab PO Q6H PRN (Reason: pain) (DME) lancets Misc See Rx Instructions .ROUTE TID Qty: 100 Rx Instructions: As directed cyanocobalamin (vitamin B-12) 1,000 mcg/mL solution 1,000 mcg IM Q28D Patient Comments: per patient and daughter, last injection was last week, they are unsure what day. (DME) Contour Next Test Strips Strip See Rx Instructions .Route Rx Instructions: As directed 3 times a day (DME) 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 meter [Contour Next One Meter] Misc See Rx Instructions .Route Rx Instructions: As directed Tresiba FlexTouch U-100 100 unit/mL (3 mL) insulin pen 48 unit subcut DAILY furosemide [Lasix] 20 mg tablet 40 mg PO DAILY levothyroxine 175 mcg tablet 175 mcg PO DAILY amlodipine 5 mg tablet 5 mg PO DAILY carbidopa-levodopa 25-100 mg tablet 1 tab PO TID Discharge Orders: Discharge Order (Routine); Ordered 03/19/24 Ordered By: Malissa Reyes Diet: Advance to usual diet Activity on Discharge: As tolerated Stand Alone Forms: Patient Portal Discharge page Print Language: Palestinian Care Plan Goals: Oxygen Safety Guidelines.?Don't smoke and don't allow others to smoke near you. Post ?No Smoking? and ?No Open Flames? signs in and outside your home to remind people not to smoke. Keep sources of heat and flame at least five feet away from where your oxygen unit is being used or stored Health Concerns: Acute hypoxia secondary to atelectasis and obesity hypoventilation Plan of Treatment: Follow-up with primary care provider as needed Take all medications as prescribed Assessment: See discharge summary
[2024-03-19 10:35] VITALS: O2SAT 86; O2SAT 90; O2SAT 92
--- NOTE | 2024-03-19 11:08 | MHC.CM.PN ---
PT DCD TODAY [facility] NOTIFIED OF DC
[2024-03-19 11:39] LABS: Glucose, Whole Blood 181 mg/dL (60-115)
[2024-03-19] MEDS: Insulin Lispro 100 UNIT/ML 3 ML VIAL SUBCUT (12:01)
[2024-03-19] MEDS: ALPRAZolam 0.5 MG TABLET 1 MG PO (12:06)
--- NOTE | 2024-03-21 12:38 | W.MHC.F2F ---
Service Date Service Date: 03/19/24 Encounter Date of encounter: 03/19/24 Reasons for Services Signs and symptoms assessed: Acute hypoxia Paroxysmal AFib Hypothyroidism Reason for senior care: CV/CP assess and/or care and other (new oxygen ) Reason for physical therapy: home safety and mobility Homebound: Leaving the home is medically contraindicated at this time without the asist of a device and/or another person due th the listed conditions above and below. Reason homebound: weakness related to hospital stay Certification: Based on the above findings, I certify that this patient is confined to the home and needs intermittent senior care care, physical therapy and/or speech therapy, or continues to need occupational therapy. The patient is under my care, and I have initiated the establishment of the plan of care. The patient will be followed by a physician who will periodically review the plan of care. Time Spent With Patient Time: Total time managing care of this patient today ____ minutes.
--- OUTSIDE RECORDS SUMMARY | 2024-03-22 22:12 | XMS_ITS ---
Author Organization [facility] Address [address] [place] [address] Care Team Providers Care Toggle Press Folder And Feeder Name Role Phone Tracy MENDEZ, Reji Primary Care Provider Lianna Castellanos [phone] Encounters Encounter Location Date Provider Diagnosis [facility] [address] [place] [address] 03/21/2024 Lianna Jacobo Plan Of Treatment No Information Progress Notes * Bianca HUNT ADOB:[birth year] (79 yo F)Acc No.[id number]:03/21/2024 Progress Note Patient:Bianca PETERS Provider:?Lianna Jacobo DPM :1945???Age:79 Y???Sex:Female D ate:03/21/2024 Address:[address] [facility] [place] Pcp:Reji Molina MD Subjective: * Chief Complaints: * ??? * Medical History:? Objective: * Vitals:? Assessment: Plan: * Treatment: * Images: * The named appointment provid er may or may not be the originator of this progress note, and it is not deemed complete until electronically signed by the appointment provider. Sign off status: Pending * Provider:Anton Jacobo DPM Date:?2023 Generated for Printi halle/Fasebastiang/eTransmitting on:?03/22/2024 10:11 PM EST
--- OUTSIDE RECORDS SUMMARY | 2024-03-22 22:12 | XMS_ITS ---
Author Organization [facility] Address [address] [place] [address] Care Team Providers Care Table Top Tile Setter Name Role Phone Reji Molina MD Primary Care Provider Lianna Castellanos [phone] REASON FOR VISIT cx 03/21 Encounters Encounter Location Date Provider Diagnosis [facility] [address] [place] [address] 03/21/2024 Lianna Jacobo Plan Of Treatment No Information Progress Notes * Bianca HUNT ADOB:[birth year] (79 yo F)Acc No.[id number]:03/21/2024 Patient:?Bianca HUNT :1945???Age:79 Y???Sex:Female Address:[address] [facility] [place] [address] * true * Date:? Generated for Sharmilai halle/Amanda/eTransmitting on:?03/22/2024 10:11 PM EST
--- OUTSIDE RECORDS SUMMARY | 2024-03-22 22:12 | XMS_ITS ---
Author Organization [facility] Address [address] [place] [address] Care Team Providers Care Director Of Field Coordination Name Role Phone Tracy MENDEZ, Reji Primary Care Provider Lianna Castellanos [phone] Encounters Encounter Location Date Provider Diagnosis [facility] [address] [place] [address] 12/28/2023 Lianna Jacobo Plan Of Treatment No Information Progress Notes * RICARDOBianca STEVENS ADOB:[birth year] (79 yo F)Acc No.[id number]:12/28/2023 Progress Note Patient:Bianca PETERS Provider:?Lianna Jacobo DPM :1945???Age:78 Y???Sex:Female D ate:12/28/2023 Address:[address] [facility] [place] Pcp:Reji Molina MD Subjective: * Chief Complaints: [...] DPM Date:?2023 Generated for Printi halle/Fasebastiang/eTransmitting on:?03/22/2024 10:12 PM EST
--- OUTSIDE RECORDS SUMMARY | 2024-03-22 22:12 | XMS_ITS | Patient Health Record ---
[facility] Address [address] [facility] [place] [address] Care Team Providers Care Security Services Manager Name Role Phone Reji Molina MD Primary Care Provider Unavailab doe Jacobo Lianna Unavailable [phone] Esthela Chapa Unavailable [phone] Allergies Allergen (clinical drug ingredient) Drug/Non Drug Allergy documented on EMR Reaction Allergy Type Onset Date Status acetaminophen / oxycodone Percocet Unknown Drug Allergy Active Reason For Referral No Information Medications Medication SIG (Take, Route, Frequency, Duration) Notes Start Date End Date Status Meclizine HCl Not-Ta chanel Vicodin occ Not-Taking Cyanocobalamin Activ e Fioricet 50-325-40 MG 1 tablet as needed Orally every 4 hrs Not-Taking ALPRAZolam Active Glimepiride 2 MG 1 tablet with breakf ast or the first main meal of the day Orally Once a day for 30 day(s) Not-Taking Simvastatin Active Carbidopa-Levodopa N ot-Taking Easy Touch Pen Altha Active Toujeo SoloStar Not- Taking Furosemide Active Zocor Not-Taking Metoprolol & Diet Manage Prod Active Urea 20 % 1 application to affected area as needed Externally Twice a day for 30 days 05/24/2013 Not-Taking Losartan Potassium A ctive Imitrex Not-Taking Amlodipine & Diet Manage Prod Active Levemir Not-Taking Iron 325 (65 Fe) MG 1 tablet Orally Once a day for 30 day(s) Active Tresiba 100 UNIT/ML as directed Subcutaneous Active Soma Not-Taking Atorvastatin Calcium 40 MG Oral for 90 Days Active Estradiol 0.625 MG 1 tablet Orally Reyna y for Three Weeks, 1 Week off for 30 day(s) Not-Taking Not-Taking Victoza Not-Taking Tresiba FlexTouch No t-Taking Ciclopirox Olamine 0.77 % 1 application Externally Twice a day for 30 days Active HumaLOG Not-Taking John Contour Next Test Not-Taking Xanax Not-Taking HYDROcodone-Acetaminophen Not-Taking B12 Active Extra-Depth Diabetic Shoes with 3 Pair Custom heat-molded multi-density innersoles . for 1 year . Dx: 250.61,735.4,701 for . Not-Takin g Vitamin D3 Active Aspirin Not-Taking Extra Depth Orthopedic Shoes (1 Pair) with Customized Heat Molded Multidensity Innersoles (3 Pair) as directed Dx: NIDDM/Polyneuropathy (E11.42), Hammertoe Foot Deformity (M20.41,M20.42), Preulcerative Skin Lesion(s) (L85.1 06/16/2022 Active zzzCompression Stockings 20-30mm Hg . . . for . Not-Taking Jardiance Active zzzExtra Depth Orthopedic Shoes (1 Pair) with Customized Heat Molded Multidensity Innersoles (3 Pair) . . . Dx: IDDM/Polyneuropathy (E10.42), Hammertoe Foot Deformity (M20.41,M20.42), Preulcerative Skin Lesion(s) (L85.1) for . 08/15/2015 Not-Moses ng Levothyroxine Sodium Active Eliquis Active metFORMIN HCl Not-Ta chanel PARoxetine HCl Activ e Immunizations Vaccine Route Administration Date Status Comme nts COVID-19 Robert [employer] Robert/Ayesha Unknown 04/12/2021 Administered First Dose: 07/07/2020 Influenza Unknown 06/06/2015 Pending Influenza Unknown 08/15/2015 Refused Influenza Unknown 01/14/2018 Refused Influenza Unknown 02/11/2018 Administered Influenza Unknown 12/13/2018 Administered Influenza Unknown 12/13/2019 Administered Influenza Unknown 12/12/2020 Administered Influenza Unknown 12/22/2022 Administered Pneumococcal Unknown 06/06/2015 Pending Social History Tobacco Use: Social History Observation Description Date Details (start date - stop date) Former Smoker NA - NA Tobacco Use/Smoking Question Answer Notes Are you a: former smoker How long has it been since you last smoked? < 1 month Additional Findings: Tobacco Non-User Current no n-smoker Alcohol Screen Question Answer Notes Did you have a drink contain ing alcohol in the past year? Yes How often did you have a dri nk containing alcohol in the past year? Monthly or less (1 point) Points 1 Interpretation Negative Tobacco use other than smoking: Question Answer Notes Are you an other tobacco user? No Problems Problem Type SNOMED Code ICD Code Onset Dates Problem Status W/U Status Risk Notes Problem Acquired hammer toe of right foot (857664532928380 5) Other hammer toe(s) (acquired), right foot (M20.41) Active confirmed Problem Acquired hallux valgus (66812883) Hallux valgus (acquired), left foot (M20.12) Active confirmed Problem Acquired hammer toe of left foot (543998021064217 3) Other hammer toe(s) (acquired), left foot (M20.42) Active confirmed Problem Acquired hallux valgus (10320506) Hallux valgus (acquired), right foot (M20.11) Active confirmed Problem Non-pressure ulcer lower limb (870213660) Non-pressure chronic ulcer of other part of left foot limited to breakdown of skin (L97.521) Active confirmed Problem Acquired hammer toe of right foot (387495905318664 5) Other hammer toe(s) (acquired), right foot (M20.41) Active confirmed Problem Acquired hammer toe of left foot (414520491589279 3) Other hammer toe(s) (acquired), left foot (M20.42) Active confirmed Problem Polyneuropathy due to type 2 diabetes mellitus (973177752) Type 2 diabetes mellitus with diabetic polyneuropathy (E11.42) Active confirmed Problem Polyneuropathy due to diabetes mellitus type I (985756499) Type 1 diabetes mellitus with diabetic polyneuropathy (E10.42) Active confirmed Problem Gout (33320414) 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) Active confirmed Rx drug management (4) Problem 493190932 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) Active confirmed Vital Signs Blood pressure diastolic 60 mm Hg 06/29/2023 Height 5 ft 2 in in 12/22/2023 Blood pressure systolic 160 mm Hg 06/29/2023 Weight 170 lbs 12/22/2023 BMI 31.09 kg/m2 12/22/2023 Procedures Procedure Date Ordered Date Performed Result Body Sit e 54099-TGON SKIN LESIONS, OVER 4 06/29/2023 N/A 95252-QAZV NAIL(S) 06/29/2023 N/A Encounters Encounter Location Date Provider Diagnosis [address] [address] 06/29/2023 Lianna Donnell Type 2 diabetes mellitus with diabetic polyneuropathy E11.42 and Tinea pedis of both feet B35.[facility] [address] 12/22/2023 Esthela Perica Pain in joint involving right ankle and foot M25.571 ; Gout of left foot M10.9 ; Pain in joint involving left ankle and foot M25.572 and Type 1 diabetes mellitus with diabetic polyneuropathy E10.42 [facility] [address] [facility] [address] [place] [address] 12/21/[address] [facility] [address] 12/24/2023 Lianna Donnell [address] [address] 12/24/[address] [address] 03/21/2024 Lianna Jacobo Assessments Encounter Date Diagnosis (ICD Code) Assessment Notes Treatment Notes Treatment Clinical Notes Section Notes 06/29/2023 Type 2 diabetes mellitus with diabetic polyneuropathy (ICD-10 - E11.42) 12/22/2023 Gout of left foot (ICD-10 - M10.9) Patient Educated with: GOUT.pdf (GOUT.pdf) Patient Educated with: LOW PURINE DIET.pdf (LOW PURINE DIET.pdf) 12/22/2023 Pain in joint involving right ankle and foot (ICD-10 - M25.571) 12/22/2023 Pain in joint involving left ankle and foot (ICD-10 - M25.572) 06/29/2023 Tinea pedis of both feet (ICD-10 - B35.3) 12/22/2023 Type 1 diabetes mellitus with diabetic polyneuropathy (ICD-10 - E10.42) 12/22/2023 Other Plan Of Treatment Pending Test Test Name Order Date *Uric Acid, Serum 12/22/2023 *CBC With Differential/Platelet 12/22/19 C-Reactive Protein, Quant 12/22/2023 ESR 12/22/2023 X ray : Foot, left 3V 12/22/2023 35616-XIRWZRN NAIL, 6 OR MORE 03/25/2011 09804-TZVBGVG NAIL, 6 OR MORE 06/13/2011 99662-XFOOKAU NAIL, 6 OR MORE 05/07/2012 31570-EWHXXAQ NAIL, 6 OR MORE 08/13/2012 09959-AHDNWWF NAIL, 6 OR MORE 11/16/2012 25922-ADBZHHY NAIL, 6 OR MORE 02/18/2013 49685-YUJTLZR NAIL, 6 OR MORE 05/24/2013 04753-MGKPSZJ NAIL, 6 OR MORE 08/30/2013 64968-XDFVBSG NAIL, 6 OR MORE 02/02/2014 83025-FJBWUOE NAIL, 6 OR MORE 07/31/2014 93439-WYWWSMQ NAIL, 6 OR MORE 12/04/2014 18097-Kedg Destruction, 1-14 03/25/2011 70375-Xxtu Destruction, 1-14 06/13/2011 51574-Ndlepcjt Plate 06/13/2011 79430-Wrpsrhsl Plate 05/07/2012 71647-Sufmgjmm Plate 03/25/2011 10008-Xfxwdcje Plate 12/04/2014 97076-Eirzbsue Plate 07/31/2014 06268-Arsbtmut Plate 02/02/2014 46575-Swblkyxu Plate 08/30/2013 34742-Edarwdnp Plate 05/24/2013 23724-Fxhwxztu Plate 12/11/2016 84878-Qegqkuge Plate 03/25/2018 50641-Lcnezhoi Plate 11/19/2020 60359-Azeiavkp Plate 06/10/2021 78394-Bavapetw Plate Each Additional 19176-Imfbkogy Plate Each Additional 48546- Debride <25 sq cm 12/04/2014 30902- Debride <25 sq cm 08/05/2018 96618- Debride <25 sq cm 07/31/2014 85922 I&D ABSCESS- SIMPLE,SINGLE 016 82989 I&D ABSCESS- SIMPLE,SINGLE 016 02744- I&D ABSCESS-COMPLICATED,MULTI 07/2015 33890- I&D ABSCESS-COMPLICATED,MULTI , J0702- INJECT TENDON ORIGIN/INSER T 06/06/2015, J0702- INJECT TENDON ORIGIN/INSER T 04/16/2015, J0702- INJECT or DRAIN, JOINT/BUR SA 04/16/2015, J0702- INJECT or DRAIN, JOINT/BUR SA 06/06/2015 37513-ZYYL SKIN LESIONS, OVER 4 11/20/19 21 18432-SZXL SKIN LESIONS, OVER 4 07/27/19 21 35773-LTEZ SKIN LESIONS, OVER 4 11/21/19 20 14900-XGYO SKIN LESIONS, OVER 4 02/27/20 20 29396-OGNG SKIN LESIONS, OVER 4 12/05/19 15 02773-DYCT SKIN LESIONS, OVER 4 05/24/19 14 25159-XSEH SKIN LESIONS, OVER 4 08/31/19 14 57799-FQHZ SKIN LESIONS, OVER 4 02/03/20 14 92708-JZVN SKIN LESIONS, OVER 4 08/01/19 15 79505-YDQS SKIN LESIONS, OVER 4 08/14/19 13 33938-XIMA SKIN LESIONS, OVER 4 02/19/20 13 21253-BKAP SKIN LESIONS, OVER 4 11/17/19 13 56096-QCXX SKIN LESIONS, OVER 4 03/25/20 11 96540-AEBI SKIN LESIONS, OVER 4 05/07/19 13 59567-TGUQ SKIN LESIONS, OVER 4 06/13/19 12 96886-CLQD SKIN LESIONS, OVER 4 06/10/19 22 42556-YDFU SKIN LESIONS, OVER 4 12/10/19 22 83939-WSIY SKIN LESIONS, OVER 4 06/17/19 23 37056-BEUM SKIN LESIONS, OVER 4 12/23/19 23 87566-BGSJ SKIN LESIONS, OVER 4 06/29/19 24 50702-OULW SKIN LESIONS, 2 TO 4 03/25/20 18 21871-PYOF SKIN LESIONS, 2 TO 4 04/16/19 16 61153-DPHQ SKIN LESIONS, 2 TO 4 10/19/19 19 34954-UQFS SKIN LESIONS, 2 TO 4 02/01/20 19 67069-PMAV SKIN LESIONS, 2 TO 4 05/09/19 20 53682-FEPN SKIN LESIONS, 2 TO 4 08/15/19 20 35971-YCMF SKIN LESIONS, 2 TO 4 06/06/19 16 19836-WCGA SKIN LESIONS, 2 TO 4 08/15/19 16 48828-UZQU SKIN LESIONS, 2 TO 4 12/10/19 16 88632-YKQE SKIN LESIONS, 2 TO 4 12/12/19 17 53880-SMHB SKIN LESIONS, 2 TO 4 01/15/20 18 49229-KHUF SKIN LESIONS, 2 TO 4 07/20/19 19 77324-RMTN NAIL(S) 07/19/2018 27060-IQGO NAIL(S) 03/25/2018 84557-YOFS NAIL(S) 01/14/2018 78011-LIKU NAIL(S) 12/10/2015 14280-OXJC NAIL(S) 12/11/2016 32827-VTQP NAIL(S) 08/15/2019 89932-PUWF NAIL(S) 05/09/2019 27169-GKQM NAIL(S) 01/31/2019 92348-JSTO NAIL(S) 10/18/2018 81136-NLMN NAIL(S) 02/27/2020 46765-DWTJ NAIL(S) 07/26/2020 61450-YCHP NAIL(S) 11/19/2020 75933-FVJH NAIL(S) 06/10/2021 30376-GENX NAIL(S) 06/16/2022 92603-DAPF NAIL(S) 12/09/2021 33713-LPYT NAIL(S) 06/29/2023 15923-UREV NAIL(S) 12/22/2022 Q0720-ZKJKASBE DYSTROPHIC NAILS ANY # J9541-RJNWZDKP DYSTROPHIC NAILS ANY # U3908-PUPKYDJY DYSTROPHIC NAILS ANY # 39847 - Shave Biopsy of Skin Lesion 11/2018 Insurance Providers Payer Name Payer Address Payer Phone Subscriber Number Group Number Insured Name Patient Relationship to Insured Coverage Start Date Coverage End Date Medicare National [employer] [address] [place] [address] [id number] Bianca Hunt Self - patient is the insured [employer] [address] [place] [address] [phone] [id number] Bianca Hunt Self - patient is the insured Medical (General) History Medical History History ICD Code thyroid disorder psoriasis mumps measles hypertension headaches/migraines diabetic chicken pox back, hip, knee pain osteoarthritis Anxiety disorder sciatica meter put on arm for blood sugar Surgical History Surgery Date(Month/Year) carpal tunnel surgery cataract surgery 2007 knee surgery skin cancer removed 2013, 2014 Hospitalization History Reason Date(Month/Year) [facility]- Water around heart and lungs [facility] [place]- Abdominal Pain-Infection - antibiot ic 06/06 [facility] [place]- couldnt catch breath 2018 [facility]- Pericarditis/ Pleurral Effusion 05/15 018
== END 2024-03-19 16:50 | disposition home health service (06) ==
LOC: HO.ED 03-17 15:30 → HO.EDOVER 03-17 16:05 → HO.S3 03-17 16:54
PROVIDERS: Internal Medicine; Student in an Organized Health Care Education/Training Program; Admitting Provider Physician Assistant Medical; Emergency Provider Emergency Medicine Emergency Medical Services; PCP Internal Medicine; Visit Provider Nurse Practitioner Acute Care
DX: E66.2 Morbid (severe) obesity with alveolar hypoventilation (principal); J98.11 Atelectasis; R09.02 Hypoxemia; G20.A1 Parkinson's disease without dyskinesia, without mention of fluctuations; E03.9 Hypothyroidism, unspecified; F39 Unspecified mood [affective] disorder; E11.22 Type 2 diabetes mellitus with diabetic chronic kidney disease; I13.0 Hypertensive heart and chronic kidney disease with heart failure and stage 1 through stage 4 chronic kidney disease, or unspecified chronic kidney disease; N18.30 Chronic kidney disease, stage 3 unspecified; I50.9 Heart failure, unspecified; I48.91 Unspecified atrial fibrillation; I25.10 Atherosclerotic heart disease of native coronary artery without angina pectoris; S30.0XXA Contusion of lower back and pelvis, initial encounter; W18.30XA Fall on same level, unspecified, initial encounter; Y93.9 Activity, unspecified; Y92.9 Unspecified place or not applicable; Y99.9 Unspecified external cause status; Z79.01 Long term (current) use of anticoagulants; Z79.899 Other long term (current) drug therapy; Z03.818 Encounter for observation for suspected exposure to other biological agents ruled out; Z68.30 Body mass index [BMI] 30.0-30.9, adult
CPT/HCPCS: 0241U; 36415; 70450; 71046; 71250; 71275; 72100; 73502; 80053; 82803; 82947; 83880; 84484; 85025; 97116; 97161; 99221; 99285

== ENCOUNTER → 2024-03-17 06:25 | Outpatient (BNV) | payer MEDICARE, SELFPAY | PROVIDERS: Emergency Provider Emergency Medicine Emergency Medical Services; PCP Internal Medicine; Visit Provider Radiology Diagnostic Radiology | DX: R06.00 Dyspnea, unspecified (principal); R06.02 Shortness of breath | CPT/HCPCS: 71046; 71250 ==

== ENCOUNTER → 2024-03-17 15:53 | Outpatient (BNV) | payer MEDICARE, SELFPAY | PROVIDERS: Admitting Provider Physician Assistant Medical; Emergency Provider Emergency Medicine Emergency Medical Services; PCP Internal Medicine; Visit Provider Physician Assistant Medical | DX: J96.01 Acute respiratory failure with hypoxia (principal); J98.11 Atelectasis | CPT/HCPCS: 99223; 99232; 99239; G0180 ==

== ENCOUNTER 2024-04-19 13:13 | Outpatient (AMB) | payer MEDICARE, SELFPAY ==
[2024-04-19 13:17] VITALS: BP 88/58; PULSE 67; BMI 29.8
--- NOTE | 2024-04-19 13:17 | MHC.OFFVIS ---
Vital Signs 04/19/24 13:17 Height 5 ft 2 in Weight 162 lb 11.218 oz BMI 29.8 BP 88/58 L Blood Pressure Location Rt brachial Position Sitting Pulse 67 Pulse Source Pulse Oximeter Intake Visit Reasons: f/u per NS Baggage Clerk Required: No Marking Room Supervisor: Marking Room Supervisor Present Allergies baclofen Adverse Reaction (Unknown, Verified 04/19/24 13:21) CONFUSION, OUT OF IT oxycodone [From Percocet] Adverse Reaction (Unknown, Verified 04/19/24 13:21) NAUSEA Medication List - Last Reconciled 04/19/24 by Vira Kuhn BIOCHEMICAL DEVELOPMENT ENGINEER-C alprazolam 1 mg PO TID amlodipine 5 mg PO DAILY apixaban (Eliquis) 5 mg PO BID atorvastatin 40 mg PO BEDTIME blood sugar diagnostic (Contour Next Test Strips) As directed 3 times a day 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 meter (Contour Next One Meter) As directed 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 meter,continuous (FreeStyle Sanjeev 3 [place]) As directed E&M code 11.8 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 sensor (FreeStyle Sanjeev 3 Sensor device) As directed E11.8 carbidopa-levodopa 25-100 mg 1 tab PO TID cholecalciferol (vitamin D3) 50 mcg PO DAILY 30 days cyanocobalamin (vitamin B-12) 1,000 mcg IM Q28D empagliflozin (Jardiance) 10 mg PO DAILY ferrous sulfate 325 mg PO DAILY furosemide (Lasix) 40 mg PO DAILY insulin degludec (Tresiba FlexTouch U-100 insulin) 48 units subcut DAILY lancets As directed levothyroxine 175 mcg PO DAILY losartan 100 mg PO DAILY metoprolol tartrate 25 mg PO BID paroxetine HCl 40 mg PO DAILY pen needle, diabetic 4x daily HPI HPI f/u per NS: Details: Bianca is a 79-year-old female past medical history of hyperlipidemia, diabetes, pulmonary hypertension, persistent atrial fibrillation, CAD, diastolic heart failure who [facility] admission for mechanical fall at home last month resulting in hip pain. She had no fractures or significant contusions. She did have hypoxia and pulmonary condition was followed. She now presents for follow-up. Today she reports she has been doing well since her hospital discharge. She says her breathing is back to baseline. She wears her oxygen at 1 L much of the time. Mild shortness of breath with physical activities. No PND, orthopnea or edema. No chest discomfort at rest or with activity. No heart palpitations, lightheadedness, presyncope, syncope, recurrent falls. She said at the time of her fall she was reaching to get something above the refrigerator and fell backwards. No bleeding issues reported. Blood pressure is low today, asymptomatic. Daughter is present. FOR[facility]LY [facility], [facility] Medical History (HFpEF) heart failure with preserved ejection fraction CKD (chronic kidney disease) Pulmonary hypertension Atrial fibrillation Persistent atrial fibrillation CAD (coronary artery disease) Vitamin D deficiency HLD (hyperlipidemia) T2DM (type 2 diabetes mellitus) Acute exacerbation of congestive heart failure Hypertension Parkinson disease Hypothyroid Diabetes Surgical History Hx of cardiac cath (~01/2017) Hx of carpal tunnel repair Hx of knee surgery Hx of hysterectomy Family History Father No problems noted. Mother T2DM (type 2 diabetes mellitus) Brother T2DM (type 2 diabetes mellitus) Social History Household Members: None Housing: House Do you presently have visiting nurse or other home services: No Alcohol intake: current Alcohol intake frequency: holidays/special occasions only Alcohol type: wine Patient Tobacco Use Status: Former Tobacco user Tobacco use type: Cigarette Advance Directives Date on File: 03/22/20 service: No Current occupational status: retired Review of Systems Const All systems reviewed & are unremarkable except as noted in HPI and below ENT Denies dizziness Card Denies chest pain, Denies chest pain at rest, Denies chest pain with activity, Denies rapid heart rate, Denies pedal edema, Denies edema, Denies leg edema, Denies lightheadedness, Denies palpitations, Denies dyspnea, Reports dyspnea on exertion and Denies orthopnea Resp Denies cough, Denies dyspnea and Reports dyspnea on exertion GI Denies hematochezia and Denies change in stool character Musc Denies abnormal gait, Denies limited range of motion, Denies muscle cramps, Denies muscle weakness, Denies numbness, Denies radiating pain into limb, Denies stiffness and Denies tingling Neuro Denies abnormal gait, Denies dizziness, Denies numbness and Denies tingling Endo Denies palpitations Physical Exam Vital Signs: BMI result Body Mass Index 29.8 Const General: cooperative, healthy appearing, comfortable and no acute distress Orientation/consciousness: patient oriented x3 Neck Neck: Yes normal visual inspection Resp Effort & Inspection: normal respiratory effort Auscultation: clear to auscultation bilaterally, no crackles, no rales, no rhonchi and no wheezes Cardio Rate: regular rate Rhythm: regular rhythm Heart sounds: S1 normal heart sound present, S2 normal heart sound present, no murmurs and no rubs Neuro General: patient oriented x3 Extrem General: Yes normal to inspection Psych Appearance: grossly normal Mental Status: mental status grossly normal Speech and movement: Normal speech and movement present Assessment & Plan Assessment & Plan (1) (HFpEF) heart failure with preserved ejection fraction: Code(s): I50.30 - Unspecified diastolic (congestive) heart failure Category: Medical Plan: History of heart failure with preserved EF. Echocardiogram 10/05/2023 showing EF 60-65%, mild LVH, mild biatrial enlargement, moderate decrease in the RV systolic function. Recent [facility] admission for fall, noted to have hypoxia but no decompensated heart failure. She was continued on her usual Lasix. She is also on Jardiance to help with heart failure. On exam today she does not appear fluid overloaded. She is not wearing her oxygen at this visit. Room air saturation 93%. Labs from 03/17/2024 showed potassium 4.2, creatinine 1.54. Signs and symptoms of heart failure reviewed with her. Discussed low-salt diet and ongoing med compliance. Cardiology follow-up 3 months, sooner if needed. (2) Atrial fibrillation, chronic: Code(s): I48.20 - Chronic atrial fibrillation, unspecified Category: Medical (3) Pulmonary hypertension: Code(s): I27.20 - Pulmonary hypertension, unspecified Category: Medical Plan: History of chronic atrial fibrillation. She is on metoprolol for heart rate control. She is on Eliquis for anticoagulation. No bleeding issues reported. Heart tones are irregularly irregular on exam. Continue current management. (4) CAD (coronary artery disease): Code(s): I25.10 - Atherosclerotic heart disease of [place] coronary artery without angina pectoris Category: Medical Plan: Recent CTA of the chest shows that coronary calcifications are present. She has no reports of chest discomfort. Last echo shows no regional wall motion abnormalities. Continue metoprolol with ideal LDL goal less than 70. Metoprolol. She will need an updated lipid profile with next lab draw. Order entered. (5) Low blood pressure: Code(s): I95.9 - Hypotension, unspecified Category: Medical Plan: Low blood pressure reading today, 88/58. She does not check her blood pressure at home. She has been taking all her meds including amlodipine, losartan, metoprolol, Lasix, Jardiance. At this time will have her put amlodipine on hold. Will plan for an office blood pressure check in 2 weeks. Meds can be further adjusted at that time if needed. (6) Hospital discharge follow-up: Code(s): Z09 - Encounter for follow-up examination after completed treatment for conditions other than malignant neoplasm Category: Medical Plan: As above Plan Time spent on chart review, documentation, interview and assessment Coding Level of Care Code Est Pt Level 4 (55949) Complex EM visit Add On G2211 Diagnoses (HFpEF) heart failure with preserved ejection fraction I50.30 Atrial fibrillation, chronic I48.20 Pulmonary hypertension I27.20 CAD (coronary artery disease) I25.10 Low blood pressure I95.9 Hospital discharge follow-up Z09 Time Spent (min) 28
--- OUTSIDE RECORDS SUMMARY | 2024-04-19 15:34 | XMS_ITS ---
Author Organization [facility] Address [address] [place] [address] Care Team Providers Care Department Store General Manager Name Role Phone Tracy MENDEZ, Reji Primary Care Provider Unavailab Lianna Roque [phone] Encounters Encounter Location Date Provider Diagnosis [address] [address] 03/21/2024 Lianna Jaocbo Plan Of Treatment Next Appt Details Provider Name:Lianna Jacobo , 07/18/2024 11:15:00 AM, [address] [place], [address], Progress Notes * RICARDOBianca STEVENS ADOB:[birth year] (79 yo F)Acc No.[id number]:03/21/2024 Progress Note Patient:?Bianca HUNT Provider:?Lianna Jacobo DPM :1945???Age:79 Y???Sex:Female D ate:03/21/2024 [address] [facility] [place] Pcp:Reji Molina MD Subjective: * Chief Complaints: * ??? * Medical History:? Objective: * Vitals:? Assessment: Plan: * Treatment: * Images: * The named appointment provid er may or may not be the originator of this progress note, and it is not deemed complete until electronically signed by the appointment provider. Sign off status: Pending * Provider:Anton Jacobo DPM Date:?2023 Generated for Josefina neri/Amanda/Reshma on:?04/19/2024 03:34 PM EST
--- OUTSIDE RECORDS SUMMARY | 2024-04-19 15:34 | XMS_ITS ---
Author Organization [facility] Address [address] [place] [address] Care Team Providers Care Cut In Station Operator Name Role Phone Reji Molina MD Primary Care Provider Unavailab Lianna Roque Unavailable [phone] REASON FOR VISIT Painful/Sore arch Encounters Encounter Location Date Provider Diagnosis [address] [address] 04/15/2024 Lianna Jacobo Plan Of Treatment Next Appt Details Provider Name:Lianna Jacobo , 07/18/2024 11:15:00 AM, [address] [place], [address], Progress Notes * Bianca HUNT ADOB:[birth year] (79 yo F)Acc No.[id number]:04/15/2024 Patient:?GILBERT Bianca Mcgowan :1945???Age:79 Y???Sex:Female Address:[address] [facility] [place] [address] * true * Date:? Generated for Printi ng/Fasebastiang/eTransmitting on:?04/19/2024 03:33 PM EST
--- OUTSIDE RECORDS SUMMARY | 2024-04-19 15:34 | XMS_ITS | Patient Health Record ---
Author Organization [facility] Address [address] [facility] [place] [address] Care Team Providers Care Wet Finisher Wool Name Role Phone Reji Molina MD Primary Care Provider Unavailab doe Lianna Jacobo Unavailable [phone] Esthela Chapa Unavailable [phone] Allergies Allergen (clinical drug ingredient) Drug/Non Drug Allergy documented on EMR Reaction Allergy Type Onset Date Status acetaminophen / oxycodone Percocet Unknown Drug Allergy Active Reason For Referral No Information Medications Medication SIG (Take, Route, Frequency, Duration) Notes Start Date End Date Status Victoza Not-Taking Tresiba FlexTouch No t-Taking Ciclopirox Olamine 0.77 % 1 application Externally Twice a day for 30 days Active HumaLOG Not-Taking John Contour Next Test Not-Taking Xanax Not-Taking HYDROcodone-Acetaminophen Not-Taking Aspirin Not-Taking Night Splint AFO - L1930 1 wear at rest for 30 days Active Jardiance Active zzzExtra Depth Orthopedic Shoes (1 Pair) with Customized Heat Molded Multidensity Innersoles (3 Pair) . . . Dx: IDDM/Polyneuropathy (E10.42), Hammertoe Foot Deformity (M20.41,M20.42), Preulcerative Skin Lesion(s) (L85.1) for . 08/15/2015 Not-Moses neri Extra-Depth Diabetic Shoes with 3 Pair Custom heat-molded multi-density innersoles . for 1 year . Dx: 250.61,735.4,701 for . Not-Marga alvarenga Eliquis Active metFORMIN HCl Not-Ta chanel Extra Depth Orthopedic Shoes (1 Pair) with Customized Heat Molded Multidensity Innersoles (3 Pair) as directed Dx: NIDDM/Polyneuropathy (E11.42), Hammertoe Foot Deformity (M20.41,M20.42), Preulcerative Skin Lesion(s) (L85.1 06/16/2022 Not-Taking zzzCompression Stockings 20-30mm Hg . . . for . Not-Taking PARoxetine HCl Activ e Meclizine HCl Not-Ta chanel Levothyroxine Sodium Active Vicodin occ Not-Taking Cyanocobalamin Activ e Fioricet 50-325-40 MG 1 tablet as needed Orally every 4 hrs Not-Taking ALPRAZolam Active Glimepiride 2 MG 1 tablet with breakf ast or the first main meal of the day Orally Once a day for 30 day(s) Not-Taking Ammonium Lactate 12 % 1 application Externally to affected areas of dry skin to feet except for between the toes Twice a day for 30 days Active Simvastatin Active Easy Touch Pen [place] Active Toujeo SoloStar Not- Taking Metoprolol & Diet Manage Prod Active Vitamin D3 Active Urea 20 % 1 application to affected area as needed Externally Twice a day for 30 days 05/24/2013 Not-Taking Carbidopa-Levodopa N ot-Taking Amlodipine & Diet Manage Prod Active Levemir Not-Taking B12 Active Furosemide Active Zocor Not-Taking Tresiba 100 UNIT/ML as directed Subcutaneous Active Soma Not-Taking Losartan Potassium A ctive Imitrex Not-Taking Atorvastatin Calcium 40 MG Oral for 90 Days Active Estradiol 0.625 MG 1 tablet Orally Reyna y for Three Weeks, 1 Week off for 30 day(s) Not-Taking Iron 325 (65 Fe) MG 1 tablet Orally Once a day for 30 day(s) Active Not-Taking Immunizations Vaccine Route Administration Date Status Comme [...] Problem Acquired hammer toe of right foot (377847313056179 5) Other hammer toe(s) (acquired), right foot (M20.41) Active confirmed Problem Acquired hallux valgus (84528510) Hallux valgus (acquired), left foot (M20.12) Active confirmed Problem Acquired hammer toe of left foot (246920189854807 3) Other hammer toe(s) (acquired), left foot (M20.42) Active confirmed Problem Acquired hallux valgus (92815558) Hallux valgus (acquired), right foot (M20.11) Active confirmed Problem Non-pressure ulcer lower limb (468688635) Non-pressure chronic ulcer of other part of left foot limited to breakdown of skin (L97.521) Active confirmed Problem Polyneuropathy due to type 2 diabetes mellitus (336777546) Type 2 diabetes mellitus with diabetic polyneuropathy (E11.42) Active confirmed Problem Gout (53547779) 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) Active confirmed Rx drug management (4) Problem Plantar fasciitis of left foot (147566831454958 01) Plantar fasciitis of left foot (M72.2) Active confirmed Problem 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) Active confirmed Vital Signs Blood pressure diastolic 70 mm Hg 04/18/2024 Height 5 ft 2 in in 04/18/2024 Blood pressure systolic 120 mm Hg 04/18/2024 Weight 162 lbs 04/18/2024 BMI 29.63 kg/m2 04/18/2024 Procedures Procedure Date Ordered Date Performed Result Body Sit e 14674-GNJE SKIN LESIONS, OVER 4 06/29/2023 N/A 20379-CJLL NAIL(S) 06/29/2023 N/A 02686-WYLV SKIN LESIONS, OVER 4 04/18/2024 N/A 51650-WIRL NAIL(S) 04/18/2024 N/A Encounters Encounter Location Date Provider Diagnosis [address] [address] 06/29/2023 Liannalópez Jacobo Type 2 diabetes mellitus with diabetic polyneuropathy E11.42 and Tinea pedis of both feet B35.[address] [address] 12/22/2023 Esthela Perica Pain in joint involving right ankle and foot M25.571 ; Gout of left foot M10.9 ; Pain in joint involving left ankle and foot M25.572 and Type 1 diabetes mellitus with diabetic polyneuropathy E10.[address] [address] 04/18/2024 Liannaadrian Jacobo Plantar fasciitis of left foot M72.2 ; Type 2 diabetes mellitus with diabetic polyneuropathy E11.42 ; Pain in left foot M79.672 ; Calcaneal spur, left foot M77.32 ; Interstitial myositis of left foot M60.172 ; Bursitis of left foot M77.52 and Xerosis of skin L85.3 [facility] [address] [address] 12/21/2023 Lianna Donnell [address] [address] 12/24/2023 Lianna Donnell [address] [address] 12/24/2023 Liannalópez Jacobo [address] [address] 03/21/2024 [facility] Donnell [address] [address] 04/15/2024 Lianna Jacobo Assessments Encounter Date Diagnosis (ICD Code) Assessment Notes Treatment Notes Treatment Clinical Notes Section Notes 06/29/2023 Type 2 diabetes mellitus with diabetic polyneuropathy (ICD-10 - E11.42) 12/22/2023 Gout of left foot (ICD-10 - M10.9) Patient Educated with: GOUT.pdf (GOUT.pdf) Patient Educated with: LOW PURINE DIET.pdf (LOW PURINE DIET.pdf) 12/22/2023 Pain in joint involving right ankle and foot (ICD-10 - M25.571) 04/18/2024 Type 2 diabetes mellitus with diabetic polyneuropathy (ICD-10 - E11.42) 04/18/2024 Plantar fasciitis of left foot (ICD-10 - M72.2) Patient Educated with: HEEL CORD STRETCHES.pdf (HEEL CORD STRETCHES.pdf ) Patient Educated with: RICE THERAPY.pdf (RICE THERAPY.pdf) 04/18/2024 Pain in left foot (ICD-10 - M79.672) 12/22/2023 Pain in joint involving left ankle and foot (ICD-10 - M25.572) 06/29/2023 Tinea pedis of both feet (ICD-10 - B35.3) 12/22/2023 Type 1 diabetes mellitus with diabetic polyneuropathy (ICD-10 - E10.42) 04/18/2024 Calcaneal spur, left foot (ICD-10 - M77.32) 04/18/2024 Interstitial myositis of left foot (ICD-10 - M60.172) 04/18/2024 Bursitis of left foot (ICD-10 - M77.52) 04/18/2024 Xerosis of skin (ICD-10 - L85.3) 12/22/2023 Other Plan Of Treatment Pending Test Test Name Order Date *Uric Acid, Serum 12/22/2023 *CBC With Differential/Platelet 12/22/19 24 C-Reactive Protein, Quant 12/22/2023 ESR 12/22/2023 X ray : Foot, left 3V 12/22/2023 87955-UBYNRRU NAIL, 6 OR MORE 03/25/2011 27970-HOGHRGO NAIL, 6 OR MORE 06/13/2011 71896-FUOEXGN NAIL, 6 OR MORE 05/07/2012 92100-KPCNNUD NAIL, 6 OR MORE 08/13/2012 74746-YIQPJNZ NAIL, 6 OR MORE 11/16/2012 68407-CKFXFTL NAIL, 6 OR MORE 02/18/2013 84127-VPSVKKR NAIL, 6 OR MORE 05/24/2013 21495-LKMAKUR NAIL, 6 OR MORE 08/30/2013 22665-PFNJVTY NAIL, 6 OR MORE 02/02/2014 29431-NTKPTDK NAIL, 6 OR MORE 07/31/2014 40029-GSNHETV NAIL, 6 OR MORE 12/04/2014 56907-Onob Destruction, 1-14 03/25/2011 58450-Ffgt Destruction, 1-14 06/13/2011 67854-Iplqxmvi Plate 06/13/2011 01683-Erpkbexo Plate 05/07/2012 40826-Jixotwbl Plate 03/25/2011 95942-Odcxobyx Plate 12/04/2014 28182-Iztpghgh Plate 07/31/2014 88288-Pprmsxlu Plate 02/02/2014 95453-Wofoqgnr Plate 08/30/2013 46736-Gwdlgdmg Plate 05/24/2013 96792-Ginaqtgd Plate 12/11/2016 95412-Qrauvrlb Plate 03/25/2018 78814-Ikeybqld Plate 11/19/2020 18089-Sfphtaap Plate 06/10/2021 68201-Swocqyho Plate Each Additional 36946-Sehpyiiw Plate Each Additional 15902- Debride <25 sq cm 12/04/2014 53966- Debride <25 sq cm 08/05/2018 00036- Debride <25 sq cm 07/31/2014 10052 I&D ABSCESS- SIMPLE,SINGLE 016 38167 I&D ABSCESS- SIMPLE,SINGLE 016 22138- I&D ABSCESS-COMPLICATED,MULTI 07/2015 17830- I&D ABSCESS-COMPLICATED,MULTI , J0702- INJECT TENDON ORIGIN/INSER T 06/06/2015, J0702- INJECT TENDON ORIGIN/INSER T 04/16/2015, J0702- INJECT or DRAIN, JOINT/BUR SA 04/16/2015, J0702- INJECT or DRAIN, JOINT/BUR SA 06/06/2015 72749-LCNV SKIN LESIONS, OVER 4 11/20/19 21 69583-RCSF SKIN LESIONS, OVER 4 07/27/19 21 57643-NLIJ SKIN LESIONS, OVER 4 11/21/19 20 83927-QEVC SKIN LESIONS, OVER 4 02/27/20 20 37714-GFNC SKIN LESIONS, OVER 4 12/05/19 15 31534-EAZU SKIN LESIONS, OVER 4 05/24/19 14 96376-UGRY SKIN LESIONS, OVER 4 08/31/19 14 75152-GOIL SKIN LESIONS, OVER 4 02/03/20 14 65089-GBSF SKIN LESIONS, OVER 4 08/01/19 15 73450-EJOB SKIN LESIONS, OVER 4 08/14/19 13 87593-CJEF SKIN LESIONS, OVER 4 02/19/20 13 83755-YXPB SKIN LESIONS, OVER 4 11/17/19 13 96069-NDBU SKIN LESIONS, OVER 4 03/25/20 11 17796-QVOC SKIN LESIONS, OVER 4 05/07/19 13 82122-GFAS SKIN LESIONS, OVER 4 06/13/19 12 91866-CZJH SKIN LESIONS, OVER 4 06/10/19 22 24153-SDTW SKIN LESIONS, OVER 4 12/10/19 22 68035-JWWS SKIN LESIONS, OVER 4 06/17/19 23 04219-ZRID SKIN LESIONS, OVER 4 04/18/19 25 56644-MBEE SKIN LESIONS, OVER 4 12/23/19 23 02762-XVZI SKIN LESIONS, OVER 4 06/29/19 24 53848-LGGE SKIN LESIONS, 2 TO 4 03/25/20 18 71004-YPNJ SKIN LESIONS, 2 TO 4 04/16/19 16 37021-YRYW SKIN LESIONS, 2 TO 4 10/19/19 19 52598-AJRJ SKIN LESIONS, 2 TO 4 02/01/20 19 74305-YLMM SKIN LESIONS, 2 TO 4 05/09/19 20 51187-REES SKIN LESIONS, 2 TO 4 08/15/19 20 36489-UNSR SKIN LESIONS, 2 TO 4 06/06/19 16 42815-LCRR SKIN LESIONS, 2 TO 4 08/15/19 16 68043-ZKQO SKIN LESIONS, 2 TO 4 12/10/19 16 54761-ZILL SKIN LESIONS, 2 TO 4 12/12/19 17 08918-TQVA SKIN LESIONS, 2 TO 4 01/15/20 18 00447-DZGL SKIN LESIONS, 2 TO 4 07/20/19 19 25464-GYAF NAIL(S) 07/19/2018 81019-YWTG NAIL(S) 03/25/2018 72459-XUMW NAIL(S) 01/14/2018 01257-GAEZ NAIL(S) 12/10/2015 47067-ZJMJ NAIL(S) 12/11/2016 29967-HVYO NAIL(S) 08/15/2019 87830-EHON NAIL(S) 05/09/2019 92327-FNLE NAIL(S) 01/31/2019 68231-VMXT NAIL(S) 10/18/2018 11075-DDUQ NAIL(S) 02/27/2020 68966-UWZA NAIL(S) 07/26/2020 50591-GHBU NAIL(S) 11/19/2020 64670-RPRH NAIL(S) 06/10/2021 29520-TIBJ NAIL(S) 06/16/2022 88233-SBOU NAIL(S) 12/09/2021 60184-LBXL NAIL(S) 06/29/2023 15632-SCXQ NAIL(S) 12/22/2022 51613-IRSE NAIL(S) 04/18/2024 G6629-SXFQEHVU DYSTROPHIC NAILS ANY # W6818-NXMWOZGD DYSTROPHIC NAILS ANY # W7812-HOCQIEHJ DYSTROPHIC NAILS ANY # 31783 - Shave Biopsy of Skin Lesion 11/2018 Next Appt Details Provider Name:Lianna Jacobo , 07/18/2024 11:15:00 AM, [address] [facility], [place], [address], Insurance Providers Payer Name Payer Address Payer Phone Subscriber Number Group Number Insured Name Patient Relationship to Insured Coverage Start Date Coverage End Date Medicare National [employer]t [employer] [address] [place] [address] [id number] Bianca Hunt Self - patient is the insured [employer] [address] [place] [address] [id number] Bianca Hunt Self - patient is the insured Medical (General) History Medical History History ICD Code thyroid disorder psoriasis mumps measles hypertension headaches/migraines diabetic chicken pox back, hip, knee pain osteoarthritis Anxiety disorder sciatica meter put on arm for blood sugar Surgical History Surgery Date(Month/Year) carpal tunnel surgery cataract surgery 2007 knee surgery skin cancer removed 2013, 2014 Hospitalization History Reason Date(Month/Year) [facility] coughing, sick 03/2024 [facility]- Water around heart and lungs [facility] [place] Pain-Infection - antibiot ic 06/06 [facility] [place] 2018 [facility]- Pericarditis/ Pleurral Effusion 05/15 018
== END 2024-04-19 13:56 | disposition home or self-care (01) ==
PROVIDERS: PCP Internal Medicine; Visit Provider Nurse Practitioner Family
DX: I50.30 Unspecified diastolic (congestive) heart failure (principal); I48.20 Chronic atrial fibrillation, unspecified; I27.20 Pulmonary hypertension, unspecified; I25.10 Atherosclerotic heart disease of native coronary artery without angina pectoris; I95.9 Hypotension, unspecified; Z09 Encounter for follow-up examination after completed treatment for conditions other than malignant neoplasm
CPT/HCPCS: 99214; G2211

== ENCOUNTER → 2024-04-19 13:13 | Outpatient (BNVA) | payer MEDICARE, SELFPAY | PROVIDERS: PCP Internal Medicine; Visit Provider Nurse Practitioner Family | DX: I27.20 Pulmonary hypertension, unspecified (principal); I25.10 Atherosclerotic heart disease of native coronary artery without angina pectoris; I50.30 Unspecified diastolic (congestive) heart failure; I48.20 Chronic atrial fibrillation, unspecified; I95.9 Hypotension, unspecified; E78.5 Hyperlipidemia, unspecified; E11.9 Type 2 diabetes mellitus without complications; Z09 Encounter for follow-up examination after completed treatment for conditions other than malignant neoplasm; Z99.81 Dependence on supplemental oxygen | CPT/HCPCS: 99212 ==

== ENCOUNTER 2024-04-21 12:25 | Outpatient (REF) | payer MEDICARE, SELFPAY ==
[2024-04-21 14:25] LABS: Free T4 (Free Thyroxine) 1.54 ng/dL (0.71-1.85); Thyroid Stimulating Hormone 0.01 uIU/mL (0.32-4.0)
== END 2024-04-21 12:26 | disposition home or self-care (01) ==
LOC: HO.LAB 12:25
PROVIDERS: PCP Internal Medicine; Visit Provider Nurse Practitioner Adult Health
DX: E11.21 Type 2 diabetes mellitus with diabetic nephropathy (principal); Z79.4 Long term (current) use of insulin; I50.30 Unspecified diastolic (congestive) heart failure; E03.9 Hypothyroidism, unspecified
CPT/HCPCS: 36415; 82947; 83036; 84439; 84443; 99212

== ENCOUNTER 2024-04-21 12:25 | Outpatient (AMB) | payer MEDICARE, SELFPAY ==
--- NOTE | 2024-04-21 11:25 | A.OFFVIS_ITS ---
Vital Signs 04/21/24 12:30 Height 5 ft 2 in Weight 163 lb 2.273 oz BMI 29.8 BP 90/60 Blood Pressure Location Rt brachial Position Sitting Pulse 63 Pulse Source Pulse Oximeter Intake Visit Reasons: f/u Type 2 DM Intake Note: Patient presents today for a follow-up on Type 2 Diabetes Mellitus: Last Diabetic eye exam was on: 09/2023 Last Podiatry exam was on: 2023 Most recent HbA1c: 9.7%, 04/21/2024 Random Glucose- 279 mg/dL, Today Boiler Technician Required: No Accompanied by: Daughter Rao baclofen Adverse Reaction (Unknown, Verified 04/21/24 12:32) CONFUSION, OUT OF IT oxycodone [From Percocet] Adverse Reaction (Unknown, Verified 04/21/24 12:32) NAUSEA HPI Comments Details: Patient is a 79 year-old female with DM type 2 who presents for management of diabetes. Patient was last seen in January and was transitioned to a Freestyle Sanjeev 3. Today presents with daughter Alyson who assists with patients medication management. Hgb A1C 04/21/24% 01/20/24 8.7% up from 10/20/23 7.8% Past medical history: DM2, HTN, HLD, CKD3, CHF Micro and macrovascular complications: nephropathy, CAD Previously on short acting insulin which was stopped by PCP due to patient not remembering to take it. Diabetes medications: Tresiba 50 units Jardiance 10mg daily (started by managed services sales consultant for CHF) Freestyle sanjeev sensor 3 average glucose: 171 14 day continuous glucose sensor report reviewed Glucose Management indicator 7.4 % Time CGM active 97 % TIme in ranges: 16 % very high (above 250) 23 % high (181-250) 56 % in range (70-180] 5 % low (69-55) 0 % very low (below 54) 40.8 Glucose variability Interpretation of CGMS lows in the morning Hyperglycemia: asymptomatic Hypoglycemia: No neuropathy: no numbness, tingling, cramping in lower extremities, sees Podiatry every [address] Jacobo plantar fasciatis No Retinopathy: last eye exam: summer 2023 + Nephropathy:03/17/24 eGFR [address] Murphy last seen 02/08 Cr bump up after addition of jardiance however stable Other specialists: Garment Steamer, Soil Technician, Neurologist She is on Levothyrxine not prescribed by our office no recent TSH PFSH Medical History (HFpEF) heart failure with preserved ejection fraction CKD (chronic kidney disease) Pulmonary hypertension Atrial fibrillation Persistent atrial fibrillation CAD (coronary artery disease) Vitamin D deficiency HLD (hyperlipidemia) T2DM (type 2 diabetes mellitus) Acute exacerbation of congestive heart failure Hypertension Parkinson disease Hypothyroid Diabetes Surgical History Hx of cardiac cath (~01/2017) Hx of carpal tunnel repair Hx of knee surgery Hx of hysterectomy Family History Father No problems noted. Mother T2DM (type 2 diabetes mellitus) Brother T2DM (type 2 diabetes mellitus) Social History Household Members: None Housing: House Do you presently have visiting nurse or other home services: No Alcohol intake: current Alcohol intake frequency: holidays/special occasions only Alcohol type: wine Patient Tobacco Use Status: Former Tobacco user Tobacco use type: Cigarette Advance Directives Date on File: 03/22/20 service: No Current occupational status: retired Physical Exam Vital Signs: Last Vital Signs Pulse 63 04/21/24 12:30 BP 90/60 04/21/24 12:30 BMI result Body Mass Index 29.8 Const Other: Absence of Cushingoid features. Absence of acromegalic features. Neck exam reveals nl size thyroid about 15 gms. No thyroid nodules palpable. No carotid bruits present. Lungs CTA. Heart S1 S2, Reg R/R. No M/R G. Skin exam reveals absence of vitiligo or acanthosis nigricans. No edema Visual exam of foot performed. No ulcerations or open lesions. No inter digit maceration or fissuring. No onychomycosis, no callouses. Sensation intact to monofilament exam. Vibratory sensation is normal with 128 Hz tuning fork. Results AMB Hemoglobin A1c AMB Hemoglobin A1c 9.7 % Last Edit by CELINA Montes on 04/21/24 12:48 Assessment & Plan Assessment & Plan (1) T2DM (type 2 diabetes mellitus): Code(s): E11.9 - Type 2 diabetes mellitus without complications Category: Medical Qualifiers: Diabetes mellitus parts counterman insulin use: with retirement use Diabetes mellitus complication status: with kidney complications Diabetes mellitus complication detail: with chronic kidney disease Plan: 79-year-old type 2 diabetic with nephropathy with nephropathy followed by Nephrology EGFR 33 and CAD with most recent A1c Given age target A1c is less than 8%. The patient had an opportunity to ask questions regarding treatment plan. The patient expressed understanding and agreement with the above treatment plan. The patient is aware they should contact our office by phone for worsening g lucose readings or for any low blood sugars which may warrant a change in diabetes medication. Compliance is encouraged with medications and any followup testing/consults which may have been ordered. Orders: Orders Thyroid Stimulating Hormone Today E11.9 - Type 2 diabetes mellitus without complications Free T4 (Free Thyroxine) Today E11.9 - Type 2 diabetes mellitus without complications Thyroid Stimulating Hormone 5 Weeks E03.9 - Hypothyroidism, unspecified AMB Hemoglobin A1c Today E11.9 - Type 2 diabetes mellitus without complications Free T4 (Free Thyroxine) 5 Weeks E03.9 - Hypothyroidism, unspecified Medications: New losartan 50 mg PO DAILY 90 days 90 tabs 1RF levothyroxine 137 mcg PO DAILY 90 days 90 tabs 3RF Patient Instructions: The patient was counseled to always carry a source of sugar and on the rule of 15's: Take 3 glucose tablets and repeat again in 15 minutes if blood sugar is not in normal range. Continue to repeat every 15 minutes until blood sugar is normal. Check your feet daily looking for any signs of infection, ulceration and seek medical attention if this occurs. Break in shoes gradually and do not wear open-toed shoes or walk barefooted. The patient was counseled to achieve a target A1C of 7% (154 avg). Fasting blood sugars should be 90-130 in the morning and less than 180 two hours after meals. Reviewed the relationship between poor diabetic control and the development of complications. Coding Diagnoses T2DM (type 2 diabetes mellitus) E11.9 Diabetes mellitus parts counterman insulin use: with retirement use Diabetes mellitus complication status: with kidney complications Diabetes mellitus complication detail: with chronic kidney disease
[2024-04-21 12:30] VITALS: BP 90/60; PULSE 63; BMI 29.8
[2024-04-21 12:43] LABS: Glucose, Whole Blood 279 mg/dL (60-115)
--- OUTSIDE RECORDS SUMMARY | 2024-04-21 13:31 | XMS_ITS ---
Author Organization [facility] Address [address] [place] [address] Care Team Providers Care Fur Joiner Name Role Phone Reji Molina MD Primary Care Provider Unavailab Lianna Roque Unavailable [phone] REASON FOR VISIT Painful/Sore arch Encounters Encounter Location Date Provider Diagnosis [address] [address] 04/15/2024 Lianna Jacobo Plan Of Treatment Next Appt Details Provider Name:Lianna Jacobo , 07/18/2024 11:15:00 AM, [address] [place], [address], Progress Notes * Bianca HUNT ADOB:[birth year] (79 yo F)Acc No.[id number]:04/15/2024 Patient:?GILBERT Bianca Mcgowan :1945???Age:79 Y???Sex:Female Address:[address] [facility] [place] [address] * true * Date:? Generated for Printi ng/Fasebastiang/eTransmitting on:?04/21/2024 01:31 PM EST
--- OUTSIDE RECORDS SUMMARY | 2024-04-21 13:31 | XMS_ITS ---
Author Organization [facility] Address [address] [place] [address] Care Team Providers Care Aircraft Accessories Mechanic Name Role Phone Tracy MENDEZ, Reji Primary Care Provider Unavailab Lianna Roque [phone] Encounters Encounter Location Date Provider Diagnosis [address] [address] 03/21/2024 Lianna Jacobo Plan Of Treatment Next Appt Details Provider Name:Lianna Jacobo , 07/18/2024 11:15:00 AM, [address] [place], [address], Progress Notes * RICARDOBianca STEVENS ADOB:[birth year] (79 yo F)Acc No.[id number]:03/21/2024 Progress Note Patient:?Bianca HUNT Provider:?Lianna Jacobo DPM :1945???Age:79 Y???Sex:Female D ate:03/21/2024 [address] [facility] [place] Pcp:Reji Molina MD Subjective: * Chief Complaints: [...] Jacobo DPM Date:?2023 Generated for Josefina neri/Amanda/Reshma on:?04/21/2024 01:31 PM EST
--- OUTSIDE RECORDS SUMMARY | 2024-04-21 13:32 | XMS_ITS | Patient Health Record ---
Author [facility] Address [address] [facility] [place] [address] Care Team Providers Care Hooker Machine Tender Name Role Phone Reji Molina MD Primary Care Provider Unavailab doe Lianna Jacobo Unavailable [phone] Esthela Chapa Unavailable [phone] Allergies Allergen (clinical drug ingredient) Drug/Non Drug [...] days Active Simvastatin Active Easy Touch Pen [place] Active Toujeo [employer] Not- Taking Metoprolol & [...] Problem Acquired hammer toe of right foot (715858345918016 5) Other hammer toe(s) (acquired), right foot (M20.41) Active confirmed Problem Acquired hallux valgus (76722288) Hallux valgus (acquired), left foot (M20.12) Active confirmed Problem Acquired hammer toe of left foot (530992739819077 3) Other hammer toe(s) (acquired), left foot (M20.42) Active confirmed Problem Acquired hallux valgus (29989350) Hallux valgus (acquired), right foot (M20.11) Active confirmed Problem Non-pressure ulcer lower limb (575292250) Non-pressure chronic ulcer of other part of left foot limited to breakdown of skin (L97.521) Active confirmed Problem Polyneuropathy due to type 2 diabetes mellitus (228247472) Type 2 diabetes mellitus with diabetic polyneuropathy (E11.42) Active confirmed Problem Gout (61771254) 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) Active confirmed Rx drug management (4) Problem Plantar fasciitis of left foot (649776296064912 01) Plantar fasciitis of left foot (M72.2) Active confirmed Problem 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) Active confirmed Vital Signs Blood pressure diastolic 70 mm Hg 04/18/2024 Height 5 ft 2 in in 04/18/2024 Blood pressure systolic 120 mm Hg 04/18/2024 Weight 162 lbs 04/18/2024 BMI 29.63 kg/m2 04/18/2024 Procedures Procedure Date Ordered Date Performed Result Body Sit e 34508-KUKI SKIN LESIONS, OVER 4 06/29/2023 N/A 29263-QQHM NAIL(S) 06/29/2023 N/A 02211-QIEZ SKIN LESIONS, OVER 4 04/18/2024 N/A 27489-OGNC NAIL(S) 04/18/2024 N/A Encounters Encounter Location Date Provider Diagnosis [address] [address] 06/29/2023 Liannalópez Jacobo Type 2 diabetes mellitus with diabetic polyneuropathy E11.42 and Tinea pedis of both feet B35.[address] [address] 12/22/2023 Esthela Perica Pain in joint involving right ankle and foot M25.571 ; Gout of left foot M10.9 ; Pain in joint involving left ankle and foot M25.572 and Type 1 diabetes mellitus with diabetic polyneuropathy E10.[address] [address] 04/18/2024 Liannaadrian Jacobo Plantar fasciitis of left foot M72.2 ; Type 2 diabetes mellitus with diabetic polyneuropathy E11.42 ; Pain in left foot M79.672 ; Calcaneal spur, left foot M77.32 ; Interstitial myositis of left foot M60.172 ; Bursitis of left foot M77.52 and Xerosis of skin L85.3 [facility] [address] [address] 12/21/2023 Lianna Donnell [address] [address] 12/24/2023 Lianna Donnell [address] [address] 12/24/2023 Liannalópez Jacobo [address] [address] 03/21/2024 [facility] Donnell [address] [address] 04/15/2024 Lianna Jacobo Assessments Encounter Date Diagnosis [...] X ray : Foot, left 3V 12/22/2023 03080-QDSFMTT NAIL, 6 OR MORE 03/25/2011 96839-RRYPAPT NAIL, 6 OR MORE 06/13/2011 48851-WKSRBWO NAIL, 6 OR MORE 05/07/2012 30391-LYKDGWA NAIL, 6 OR MORE 08/13/2012 43444-BVWBBLT NAIL, 6 OR MORE 11/16/2012 09513-JDIUFFO NAIL, 6 OR MORE 02/18/2013 58805-EBLUFKI NAIL, 6 OR MORE 05/24/2013 55563-MMNTUQF NAIL, 6 OR MORE 08/30/2013 38320-NXONIGH NAIL, 6 OR MORE 02/02/2014 39797-RDDEKUB NAIL, 6 OR MORE 07/31/2014 70027-CUTGFGB NAIL, 6 OR MORE 12/04/2014 69828-Snsn Destruction, 1-14 03/25/2011 81043-Xbqo Destruction, 1-14 06/13/2011 90310-Lewqepnq Plate 06/13/2011 03252-Obofwjgb Plate 05/07/2012 36057-Ffloqvbr Plate 03/25/2011 84874-Loubwuzy Plate 12/04/2014 62404-Nilsklyv Plate 07/31/2014 23459-Zslssofj Plate 02/02/2014 60830-Wzhwzkwv Plate 08/30/2013 14501-Pojbcdpi Plate 05/24/2013 80781-Ptpqfiri Plate 12/11/2016 04968-Jfsfkppz Plate 03/25/2018 96364-Ejpgxwhb Plate 11/19/2020 70466-Tkzbsvrv Plate 06/10/2021 69368-Syzpfbyn Plate Each Additional 40542-Czoxxytv Plate Each Additional 53182- Debride <25 sq cm 12/04/2014 47853- Debride <25 sq cm 08/05/2018 40530- Debride <25 sq cm 07/31/2014 42007 I&D ABSCESS- SIMPLE,SINGLE 016 60218 I&D ABSCESS- SIMPLE,SINGLE 016 51536- I&D ABSCESS-COMPLICATED,MULTI 07/2015 59848- I&D ABSCESS-COMPLICATED,MULTI , J0702- INJECT TENDON ORIGIN/INSER T 06/06/2015, J0702- INJECT TENDON ORIGIN/INSER T 04/16/2015, J0702- INJECT or DRAIN, JOINT/BUR SA 04/16/2015, J0702- INJECT or DRAIN, JOINT/BUR SA 06/06/2015 69995-YDDJ SKIN LESIONS, OVER 4 11/20/19 21 94323-TZYZ SKIN LESIONS, OVER 4 07/27/19 21 80838-KLKC SKIN LESIONS, OVER 4 11/21/19 20 32818-WDVI SKIN LESIONS, OVER 4 02/27/20 20 40702-YZFY SKIN LESIONS, OVER 4 12/05/19 15 64062-ZFIQ SKIN LESIONS, OVER 4 05/24/19 14 90496-PNGH SKIN LESIONS, OVER 4 08/31/19 14 26288-MUZO SKIN LESIONS, OVER 4 02/03/20 14 86444-RFIE SKIN LESIONS, OVER 4 08/01/19 15 28421-SSQA SKIN LESIONS, OVER 4 08/14/19 13 62370-KNBO SKIN LESIONS, OVER 4 02/19/20 13 93466-WNUR SKIN LESIONS, OVER 4 11/17/19 13 83775-IIOR SKIN LESIONS, OVER 4 03/25/20 11 14707-CNOO SKIN LESIONS, OVER 4 05/07/19 13 42002-ZYES SKIN LESIONS, OVER 4 06/13/19 12 01838-LNUK SKIN LESIONS, OVER 4 06/10/19 22 39606-DSQT SKIN LESIONS, OVER 4 12/10/19 22 52014-JXGD SKIN LESIONS, OVER 4 06/17/19 23 48624-IVER SKIN LESIONS, OVER 4 04/18/19 25 37327-HTAW SKIN LESIONS, OVER 4 12/23/19 23 41198-ANOQ SKIN LESIONS, OVER 4 06/29/19 24 63967-TCNQ SKIN LESIONS, 2 TO 4 03/25/20 18 77949-ATEK SKIN LESIONS, 2 TO 4 04/16/19 16 79426-LMHZ SKIN LESIONS, 2 TO 4 10/19/19 19 53306-AEUJ SKIN LESIONS, 2 TO 4 02/01/20 19 57743-DBXX SKIN LESIONS, 2 TO 4 05/09/19 20 99119-ADAQ SKIN LESIONS, 2 TO 4 08/15/19 20 47533-LPNK SKIN LESIONS, 2 TO 4 06/06/19 16 19130-UZYN SKIN LESIONS, 2 TO 4 08/15/19 16 20331-BAGH SKIN LESIONS, 2 TO 4 12/10/19 16 90618-IGEE SKIN LESIONS, 2 TO 4 12/12/19 17 39897-CIWV SKIN LESIONS, 2 TO 4 01/15/20 18 73234-JRBC SKIN LESIONS, 2 TO 4 07/20/19 19 07274-GQUE NAIL(S) 07/19/2018 55496-RKXN NAIL(S) 03/25/2018 74030-RWBP NAIL(S) 01/14/2018 19283-AGEU NAIL(S) 12/10/2015 17041-YZIM NAIL(S) 12/11/2016 05353-NRDR NAIL(S) 08/15/2019 09275-BJQR NAIL(S) 05/09/2019 41447-CIFA NAIL(S) 01/31/2019 27310-NLNW NAIL(S) 10/18/2018 92019-DRZN NAIL(S) 02/27/2020 40010-KIVT NAIL(S) 07/26/2020 48122-FRVI NAIL(S) 11/19/2020 70262-BLMC NAIL(S) 06/10/2021 02012-SOVY NAIL(S) 06/16/2022 05932-JKCD NAIL(S) 12/09/2021 80783-RRTU NAIL(S) 06/29/2023 05794-FPFF NAIL(S) 12/22/2022 43108-OKXE NAIL(S) 04/18/2024 C2666-HCSBNAUC DYSTROPHIC NAILS ANY # B9566-MAWXBSWL DYSTROPHIC NAILS ANY # R8436-VHLLPQPG DYSTROPHIC NAILS ANY # 06461 - Shave Biopsy of Skin Lesion 11/2018 Next Appt Details Provider Name:Lianna Jacobo , 07/18/2024 11:15:00 AM, [address] [facility], [place], [address], Insurance Providers Payer Name Payer Address Payer Phone Subscriber Number Group Number Insured Name Patient Relationship to Insured Coverage Start Date Coverage End Date Medicare National [employer]t [employer] [address] [place] [address] [id number] Bianca Hunt Self - patient is the insured [employer] [address] [place] [address] [id number] Bianca Hunt Self - patient is the insured Medical (General) History Medical History History ICD Code thyroid disorder psoriasis mumps measles hypertension headaches/migraines diabetic chicken pox back, hip, knee pain osteoarthritis Anxiety disorder sciatica meter put on arm for blood sugar Surgical History Surgery Date(Month/Year) carpal tunnel surgery cataract surgery 2007 knee surgery skin cancer removed 2013, 2014 Hospitalization History Reason Date(Month/Year[place] [facility], [place]/2024 [facility] Water around heart [facility] Pain-Infection - antibiot ic 06/06 [facility] [facility] [place] Pericarditis/ Pleurral Effusion 05/15 018
== END 2024-04-21 13:06 | disposition home or self-care (01) ==
PROVIDERS: PCP Internal Medicine; Visit Provider Nurse Practitioner Adult Health
DX: E11.9 Type 2 diabetes mellitus without complications (principal)

== ENCOUNTER 2024-06-03 10:05 | Outpatient (REF) | payer MEDICARE, SELFPAY ==
--- OUTSIDE RECORDS SUMMARY | 2024-06-03 10:48 | XMS_ITS | Clinical Summary ---
Author Organization [facility] Address [address] [place] [address] Phone Care Team Providers Care Viscera Washer Name Role Phone Reji Molina MD Primary Care Provider [phone] Allergies Active Allergy Reactions Criticality Noted Date Comments Oxycodone-Acetaminophen 07/28/2022 Other reaction(s): Unknown Medications Iron, Ferrous Sulfate, 325 (65 Fe) MG tablet Take 1 capsule by mouth 1 (one) time each day Active amLODIPine (NORVASC) 10 MG tablet Take 1 tablet by mouth 1 (one) time each day Active carbidopa-levo dopa (SINEMET) 25-100 MG per tablet 1 tablet 3 (three) times a day Active furosemide (LASIX) 20 MG tablet Take 1 tablet by mouth 1 (one) time each day Active Tresiba FlexTouch 100 UNIT/ML injection INJECT 40 UNITS SUBCUTANEOUSLY INTO THE SKIN ONCE DAILY 1 Active levothyroxine (SYNTHROID, LEVOTHROID) 150 MCG tablet Take 1 tablet by mouth 1 (one) time each day Active losartan (COZAAR) 100 MG tablet Take 1 tablet by mouth every morning Active metoprolol tartrate (LOPRESSOR) 25 MG tablet Take 25 mg by mouth 2 (two) times a day 1 Active PARoxetine (PAXIL) 40 MG tablet Take 1 tablet by mouth 1 (one) time each day Active cholecalcifero l (VITAMIN D-3) 50 MCG (1999) capsule 1 Active atorvastatin (LIPITOR) 40 MG tablet Take 40 mg by mouth at bed time 2 Active Victoza 18 MG/3ML injection 1.6 mg 2 Active ALPRAZolam (XANAX) 1 MG tablet Take 1 mg by mouth 2 Active Eliquis 5 MG tablet TAKE 1 TABLET (5MG) BY MOUTH TWICE DAILY. 2 Active cyanocobalamin (VITAMIN B-12) 1000 MCG/ML injection INJECT 1 ML INTO THE MUSCLE ONCE MONTHLY 2 Active Active Problems Problem Noted Date Diagnosed Date Allergic rhinitis 07/20/2020 Altered mental status 07/20/2020 Anxiety 07/20/2020 Chronic kidney disease stage 3 07/20/2020 Depressive disorder 07/20/2020 Diabetes mellitus 07/20/2020 Gastroesophageal reflux disease 07/20/2020 Hypothyroidism 07/20/2020 Hypertensive disorder 07/20/2020 Migraine 07/20/2020 Parkinson's disease 07/20/2020 Renal disorder due to type 2 diabetes mellitus 0 07/20/2020 Vertigo 07/20/2020 Family History Medical History Relation Comments Diabetes Mother Heart disease Mother CHF Diabetes Sibling 1 brother Hypertension Sibling 2 brother Heart disease Sibling 3 brother Relation Status Comments Father Unknown Mother Sibling 1 Sibling 2 Sibling 3 Social History Tobacco Use Types Packs/Day Years Used Date Smoking Tobacco: Former Cigarettes Q uit: 07/05/2018 Smokeless Tobacco: Former Tobacco Cessation:Counseling Given: Not Answered Alcohol Use Standard Drinks/Week Comments Yes 0 (1 standard drink = 0.6 oz pure alcohol) Alcoholic Drinks/day: Occasional social drink Comments Unknown Sex and Gender Information Value Date Recorded Sex Assigned at Not on file Legal Sex Female 4:49 PM EST Gender Identity Not on file Sexual Orientation Not on file Last Filed Vital Signs Vital Sign Reading Time Taken Comments Blood Pressure 124/60 12/01/2022 2:50 PM EDT Pulse 68 12/01/2022 2:50 PM EDT Temperature - - Respiratory Rate - - Oxygen Saturation 97% 12/01/2022 2:50 PM EDT Inhaled Oxygen Concentration - - Weight 77.7 kg (171 lb 6.4 oz) 12/01/2022 2:50 P M EDT Height 157.5 cm (5' 2 ) 07/28/2022 1:32 PM EDT Body Mass Index 31.35 07/28/2022 1:32 PM EDT Plan of Treatment Health Maintenance Due Date Last Done Comments Pneumococcal Vaccine: 65+ Ye ars (1 of 2 - PCV) 01/03/1951 Diabetes: Hemoglobin A1C 05/13/2020 Diabetes: Ophthalmology Exam 05/13/2020 Diabetes: Pedal Pulse Checked 05/13/2020 Diabetes: Sensory Foot Exam 05/13/2020 Diabetes: Visual Foot Exam 05/13/2020 Influenza Vaccine (#1) 2023 Hepatitis B Vaccine Aged Out No longe r eligible based on patient's age to complete this topic Insurance [facility] MEDICARE [place]ID [place] [facility] [place]ID [place] Care Teams Viscera Washer Relationship Specialty Start Date End Date Reji Molina MD [address] [place] [address] PCP - General 04/23/20
--- OUTSIDE RECORDS SUMMARY | 2024-06-03 10:48 | XMS_ITS ---
Author Organization [facility] [place] Address [address] [place] [address] Care Team Providers Care Adult Basic Education Manager Name Role Phone Reji Molina MD Primary Care Provider Unavailab Lianna Roque Unavailable [phone] REASON FOR VISIT Painful/Sore arch Encounters Encounter Location Date Provider Diagnosis [address] [address] 04/15/2024 Lianna Jacobo Plan Of Treatment Next Appt Details Provider Name:Lianna Jacobo , 07/18/2024 11:15:00 AM, [address] [place] [address], [address], Progress Notes * Bianca HUNT ADOB:[birth year] (79 yo F)Acc No.[id number]:04/15/2024 Patient:?LEROY Bianca Mcgowan :1945???Age:79 Y???Sex:Female Address:[address] [place] [address] * true * Date:? Generated for Printi ng/Fasebastiang/eTransmitting on:?06/03/2024 10:48 AM EST
--- OUTSIDE RECORDS SUMMARY | 2024-06-03 10:48 | XMS_ITS | Patient Health Record ---
[facility] Organization [facility] Address [address] [facility] [place] [address] Care Team Providers Care Sales Training Representative Name Role Phone Reji Molina MD Primary Care Provider Unavailab doe Lianna Jacobo Unavailable [phone] Esthela Chapa Unavailable [phone] Allergies Allergen (clinical drug ingredient) Drug/Non Drug [...] days Active Simvastatin Active Easy Touch Pen Carlyle Active Toujeo [employer] Not- Taking Metoprolol & [...] Problem Acquired hammer toe of right foot (135405965025237 5) Other hammer toe(s) (acquired), right foot (M20.41) Active confirmed Problem Acquired hallux valgus (12423872) Hallux valgus (acquired), left foot (M20.12) Active confirmed Problem Acquired hammer toe of left foot (326545825531767 3) Other hammer toe(s) (acquired), left foot (M20.42) Active confirmed Problem Acquired hallux valgus (33209462) Hallux valgus (acquired), right foot (M20.11) Active confirmed Problem Non-pressure ulcer lower limb (057283542) Non-pressure chronic ulcer of other part of left foot limited to breakdown of skin (L97.521) Active confirmed Problem Polyneuropathy due to type 2 diabetes mellitus (389994882) Type 2 diabetes mellitus with diabetic polyneuropathy (E11.42) Active confirmed Problem Gout (54097311) 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) Active confirmed Rx drug management (4) Problem Plantar fasciitis of left foot (883283163360619 01) Plantar fasciitis of left foot (M72.2) Active confirmed Problem Interstitial myositis (43771307) Interstitial myositis of left foot (M60.172) Active confirmed Vital Signs Blood pressure diastolic 70 mm Hg 04/18/2024 Height 5 ft 2 in in 04/18/2024 Blood pressure systolic 120 mm Hg 04/18/2024 Weight 162 lbs 04/18/2024 BMI 29.63 kg/m2 04/18/2024 Procedures Procedure Date Ordered Date Performed Result Body Sit e 36538-YCKN SKIN LESIONS, OVER 4 06/29/2023 N/A 93729-GQRL NAIL(S) 06/29/2023 N/A 06420-LQKM SKIN LESIONS, OVER 4 04/18/2024 N/A 74725-URKS NAIL(S) 04/18/2024 N/A Encounters Encounter Location Date Provider Diagnosis [address] [address] 06/29/2023 Liannalópez Jacobo Type 2 diabetes mellitus with diabetic polyneuropathy E11.42 and Tinea pedis of both feet B35.[address] [address] 12/22/2023 Esthela Perica Pain in joint involving right ankle and foot M25.571 ; Gout of left foot M10.9 ; Pain in joint involving left ankle and foot M25.572 and Type 1 diabetes mellitus with diabetic polyneuropathy E10.[address] [address] 04/18/2024 Liannaadrian Jacobo Plantar fasciitis of left foot M72.2 ; Type 2 diabetes mellitus with diabetic polyneuropathy E11.42 ; Pain in left foot M79.672 ; Calcaneal spur, left foot M77.32 ; Interstitial myositis of left foot M60.172 ; Bursitis of left foot M77.52 and Xerosis of skin L85.3 [facility] [address] [address] 12/21/2023 Lianna Donnell [address] [address] 12/24/2023 Lianna Donnell [address] [address] 12/24/2023 Liannalópez Jacobo [address] [address] 03/21/2024 [facility] Donnell [address] [address] 04/15/2024 Lianna Jacobo Assessments Encounter Date Diagnosis [...] X ray : Foot, left 3V 12/22/2023 89094-WLWBUVC NAIL, 6 OR MORE 03/25/2011 07609-IKDBWUN NAIL, 6 OR MORE 06/13/2011 09241-VQLVAYX NAIL, 6 OR MORE 05/07/2012 44841-YEOHLGL NAIL, 6 OR MORE 08/13/2012 02175-UDRVTLQ NAIL, 6 OR MORE 11/16/2012 70426-XUTYAWL NAIL, 6 OR MORE 02/18/2013 88185-GHAKLLQ NAIL, 6 OR MORE 05/24/2013 75371-WKHUGLI NAIL, 6 OR MORE 08/30/2013 30963-GXKWQYP NAIL, 6 OR MORE 02/02/2014 43967-MBVQBUY NAIL, 6 OR MORE 07/31/2014 72607-BPEGDPH NAIL, 6 OR MORE 12/04/2014 39482-Jjso Destruction, 1-14 03/25/2011 44674-Song Destruction, 1-14 06/13/2011 58729-Gacpkhtp Plate 06/13/2011 28714-Fikvmnoi Plate 05/07/2012 22096-Dmwbopsb Plate 03/25/2011 93115-Kwfdwvgj Plate 12/04/2014 88621-Edqzodqs Plate 07/31/2014 48239-Uwgxlbvn Plate 02/02/2014 21516-Kygfoitu Plate 08/30/2013 71699-Zozrzwmo Plate 05/24/2013 48436-Zdlphfvg Plate 12/11/2016 70346-Zlfnsblo Plate 03/25/2018 02686-Muqksnlr Plate 11/19/2020 02679-Xtbzkpgm Plate 06/10/2021 03224-Jyiyzorm Plate Each Additional 99403-Kkncrscb Plate Each Additional 02019- Debride <25 sq cm 12/04/2014 71310- Debride <25 sq cm 08/05/2018 09641- Debride <25 sq cm 07/31/2014 86226 I&D ABSCESS- SIMPLE,SINGLE 016 08331 I&D ABSCESS- SIMPLE,SINGLE 016 15487- I&D ABSCESS-COMPLICATED,MULTI 07/2015 65698- I&D ABSCESS-COMPLICATED,MULTI , J0702- INJECT TENDON ORIGIN/INSER T 06/06/2015, J0702- INJECT TENDON ORIGIN/INSER T 04/16/2015, J0702- INJECT or DRAIN, JOINT/BUR SA 04/16/2015, J0702- INJECT or DRAIN, JOINT/BUR SA 06/06/2015 88568-DLQN SKIN LESIONS, OVER 4 11/20/19 21 12787-IUVE SKIN LESIONS, OVER 4 07/27/19 21 48314-DSTG SKIN LESIONS, OVER 4 11/21/19 20 51481-HPQO SKIN LESIONS, OVER 4 02/27/20 20 56246-ZJUG SKIN LESIONS, OVER 4 12/05/19 15 57712-BZEM SKIN LESIONS, OVER 4 05/24/19 14 25936-FKMM SKIN LESIONS, OVER 4 08/31/19 14 68038-OPBA SKIN LESIONS, OVER 4 02/03/20 14 10392-DTFB SKIN LESIONS, OVER 4 08/01/19 15 49511-OPZM SKIN LESIONS, OVER 4 08/14/19 13 07720-QQXR SKIN LESIONS, OVER 4 02/19/20 13 59903-GGUB SKIN LESIONS, OVER 4 11/17/19 13 39339-XSGL SKIN LESIONS, OVER 4 03/25/20 11 86076-EHDJ SKIN LESIONS, OVER 4 05/07/19 13 06495-WAAG SKIN LESIONS, OVER 4 06/13/19 12 13910-YLNG SKIN LESIONS, OVER 4 06/10/19 22 40385-VWRS SKIN LESIONS, OVER 4 12/10/19 22 83906-QOBR SKIN LESIONS, OVER 4 06/17/19 23 22665-YXNF SKIN LESIONS, OVER 4 04/18/19 25 54248-MORN SKIN LESIONS, OVER 4 12/23/19 23 19847-UGRY SKIN LESIONS, OVER 4 06/29/19 24 28931-KMPT SKIN LESIONS, 2 TO 4 03/25/20 18 03789-KFKX SKIN LESIONS, 2 TO 4 04/16/19 16 93964-NENH SKIN LESIONS, 2 TO 4 10/19/19 19 30411-SLQC SKIN LESIONS, 2 TO 4 02/01/20 19 95721-HZEY SKIN LESIONS, 2 TO 4 05/09/19 20 50250-TPMP SKIN LESIONS, 2 TO 4 08/15/19 20 56265-BPMU SKIN LESIONS, 2 TO 4 06/06/19 16 82525-KKCC SKIN LESIONS, 2 TO 4 08/15/19 16 86509-KPDX SKIN LESIONS, 2 TO 4 12/10/19 16 02206-JFZC SKIN LESIONS, 2 TO 4 12/12/19 17 44951-RTTR SKIN LESIONS, 2 TO 4 01/15/20 18 20160-IUXC SKIN LESIONS, 2 TO 4 07/20/19 19 48413-WQPN NAIL(S) 07/19/2018 43619-YDYA NAIL(S) 03/25/2018 05476-SAVB NAIL(S) 01/14/2018 78813-ZRJX NAIL(S) 12/10/2015 22308-HXLB NAIL(S) 12/11/2016 95154-WKGG NAIL(S) 08/15/2019 90602-TFCC NAIL(S) 05/09/2019 23002-ZTZJ NAIL(S) 01/31/2019 94633-OGAW NAIL(S) 10/18/2018 62836-DKTL NAIL(S) 02/27/2020 60124-KQTR NAIL(S) 07/26/2020 90987-YAXL NAIL(S) 11/19/2020 04658-IBKO NAIL(S) 06/10/2021 18207-IBFT NAIL(S) 06/16/2022 70045-TRTZ NAIL(S) 12/09/2021 26338-AVAC NAIL(S) 06/29/2023 47273-OIYH NAIL(S) 12/22/2022 11071-USQV NAIL(S) 04/18/2024 Y9302-AWBCYGMV DYSTROPHIC NAILS ANY # J4793-VSAUOWGA DYSTROPHIC NAILS ANY # P3038-PGTRETXL DYSTROPHIC NAILS ANY # 41915 - Shave Biopsy of Skin Lesion 11/2018 Next Appt Details Provider Name:Lianna aJcobo , 07/18/2024 11:15:00 AM, [address] [facility], [place], [address], Insurance Providers Payer Name Payer Address Payer Phone Subscriber Number Group Number Insured Name Patient Relationship to Insured Coverage Start Date Coverage End Date Medicare National [employer]t [employer] [address] [place] [address] [id number] Bianca Hunt Self - patient is the insured [employer] [address] [place] [address] [phone] [id number] Bianca Hunt Self - patient is the insured Medical (General) History Medical History History ICD Code thyroid disorder psoriasis mumps measles hypertension headaches/migraines diabetic chicken pox back, hip, knee pain osteoarthritis Anxiety disorder sciatica meter put on arm for blood sugar Surgical History Surgery Date(Month/Year) carpal tunnel surgery cataract surgery 2007 knee surgery skin cancer removed 2013, 2014 Hospitalization History Reason Date(Month/Year) [facility] ER- coughing, sick 03/2024 [facility]- Water around heart and lungs [facility]- Abdominal Pain-Infection - antibiot ic 06/06 [facility]- couldnt catch breath 2018 [facility]- Pericarditis/ Pleurral Effusion 05/15 018
--- OUTSIDE RECORDS SUMMARY | 2024-06-03 10:48 | XMS_ITS ---
Author Organization [facility] Address [address] [place] [address] Care Team Providers Care Administrative Professional Name Role Phone Tracy MENDEZ, Reji Primary Care Provider Unavailab Lianna Roque [phone] Encounters Encounter Location Date Provider Diagnosis [address] [address] 03/21/2024 Lianna Jacobo Plan Of Treatment Next Appt Details Provider Name:Lianna Jacobo , 07/18/2024 11:15:00 AM, [address] [place], [address], Progress Notes * LEROYJacobBianca ADOB:[birth year] (79 yo F)Acc No.[id number]:03/21/2024 Progress Note Patient:?Bianca HUNT Provider:?Lianna Jacobo DPM :1945???Age:79 Y???Sex:Female D ate:03/21/2024 [address] [facility] [place] Pcp:Reji Molina MD Subjective: * Chief Complaints: * ??? * Medical History:? Objective: * Vitals:? Assessment: Plan: * Treatment: * Images: * The named appointment provid er may or may not be the originator of this progress note, and it is not deemed complete until electronically signed by the appointment provider. Sign off status: Pending * Provider:Anton Jacobo DPM Date:?2023 Generated for Josefina neri/Amanda/Kyaitting on:?06/03/2024 10:47 AM EST
[2024-06-03 13:56] LABS: Anion Gap 13 (12-20); Blood Urea Nitrogen 20 mg/dL (9-16); Calcium 9.6 mg/dL (8.4-10.2); Carbon Dioxide 31 mmol/L (22-29); Chloride 104 mmol/L (96-108); Estimated Glomerular Filt Rate 48; Potassium 3.9 mmol/L (3.3-5.1); Sodium 144 mmol/L (135-145)
[2024-06-03 14:18] LABS: Thyroid Stimulating Hormone 0.02 uIU/mL (0.32-4.0)
[2024-06-03 14:22] LABS: Free T4 (Free Thyroxine) 1.31 ng/dL (0.71-1.85)
== END 2024-06-03 10:06 | disposition home or self-care (01) ==
LOC: HO.HMGCLDS 10:05
PROVIDERS: Nurse Practitioner Adult Health; PCP Internal Medicine; Visit Provider Internal Medicine Hypertension Specialist
DX: N18.9 Chronic kidney disease, unspecified (principal); E03.9 Hypothyroidism, unspecified
CPT/HCPCS: 36415; 80051; 82310; 82565; 84439; 84443; 84520

== ENCOUNTER 2024-06-06 11:35 | Outpatient (AMB) | payer MEDICARE, SELFPAY ==
[2024-06-06 11:51] VITALS: BP 98/62; PULSE 74; O2SAT 90; BMI 29.4
--- NOTE | 2024-06-06 11:51 | HO.NEPHOV ---
Vital Signs 06/06/24 11:51 06/06/24 12:02 06/06/24 12:02 06/06/24 12:03 Height 5 ft 2 in Weight 161 lb BMI 29.4 BP 98/62 110/60 100/60 100/60 Blood Pressure Location Rt brachial Rt brachial Rt brachial Rt brachial Position Sitting Supine Sitting Standing Pulse 74 Pulse Source Pulse Oximeter Pulse Oximetry (%) 90 L Oxygen Delivery Method Room Air Intake Visit Reasons: CKD/ Conf Lathe Mechanic Required: No Accompanied by: Self / Same As Patient Allergies baclofen Adverse Reaction (Unknown, Verified 06/06/24 11:53) CONFUSION, OUT OF IT oxycodone [From Percocet] Adverse Reaction (Unknown, Verified 06/06/24 11:53) NAUSEA Medication List - Last Reconciled 06/06/24 by Roberto Murphy MD alprazolam 1 mg PO TID apixaban (Eliquis) 5 mg PO BID atorvastatin 40 mg PO BEDTIME blood sugar diagnostic (Contour Next Test Strips) As directed 3 times a day 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 meter (Contour Next One Meter) As directed 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 meter,continuous (FreeStyle Sanjeev 3 Sylvester) As directed E&M code 11.8 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 sensor (FreeStyle Sanjeev 3 Sensor device) As directed E11.8 carbidopa-levodopa 25-100 mg 1 tab PO TID cholecalciferol (vitamin D3) 50 mcg PO DAILY 30 days cyanocobalamin (vitamin B-12) 1,000 mcg IM Q28D empagliflozin (Jardiance) 10 mg PO DAILY ferrous sulfate 325 mg PO DAILY furosemide (Lasix) 40 mg PO DAILY insulin degludec (Tresiba FlexTouch U-100 insulin) 46 units subcut DAILY lancets As directed levothyroxine 150 mcg PO DAILY 90 days losartan 50 mg PO DAILY 90 days metoprolol tartrate 25 mg PO BID paroxetine HCl 40 mg PO DAILY pen needle, diabetic 4x daily HPI Comments Details: 78-year-old woman with longstanding hypertension diabetes mellitus with CKD. She is here for routine follow-up. REcently hospitalized for CHF Now on Lasix Supposed to take 40 mg QD But she has been taking 2 tabs a day Cr up to 1.5 from 1.2 This corresponds to the addition of Jardiance. Cr stays at 1.55 06/06/24 Feels better Losartan was decreased due to orthostasis Asymptomatic PFSH Medical History (HFpEF) heart failure with preserved ejection fraction CKD (chronic kidney disease) Pulmonary hypertension Atrial fibrillation Persistent atrial fibrillation CAD (coronary artery disease) Vitamin D deficiency HLD (hyperlipidemia) T2DM (type 2 diabetes mellitus) Acute exacerbation of congestive heart failure Hypertension Parkinson disease Hypothyroid Diabetes Surgical History Hx of cardiac cath (~01/2017) Hx of carpal tunnel repair Hx of knee surgery Hx of hysterectomy Family History Father No problems noted. Mother T2DM (type 2 diabetes mellitus) Brother T2DM (type 2 diabetes mellitus) Social History Household Members: None Housing: House Do you presently have visiting nurse or other home services: No Alcohol intake: current Alcohol intake frequency: holidays/special occasions only Alcohol type: wine Patient Tobacco Use Status: Former Tobacco user Tobacco use type: Cigarette Advance Directives Date on File: 03/22/20 service: No Current occupational status: retired Physical Exam Vital Signs: Last Vital Signs Pulse 74 06/06/24 11:51 BP 98/62 06/06/24 11:51 Pulse Ox 90 L 06/06/24 11:51 Oxygen Delivery Method Room Air 06/06/24 11:51 BMI result Body Mass Index 29.4 Const General: comfortable; No acute distress Orientation/consciousness: patient oriented x3 Eyes General: appearance normal, both eyes and all related structures Visual Goodwin: normal visual goodwin by confrontation Neck Neck: Yes supple and Yes no JVD Resp Effort & Inspection: normal respiratory effort and respiratory effort not decreased Auscultation: rhonchi Cardio Palpation: no palpable S3 and no palpable S4 Heart sounds: no rubs GI Inspection: Yes normal to inspection Palpation (GI): Soft to palpation Percussion: Yes normal to percussion Auscultation: normal bowel sounds General: Yes no CVA tenderness Back/Spine/Pelvis Back: no CVA tenderness Skin General skin exam: no petechiae and no purpura Neuro General: patient oriented x3 and no focal motor deficits Extrem General: No clubbing and No edema Results Reviewed Nephrology Results: Hgb 17.9 g/dl (12.0-16.0) H 03/17/24 WBC 10.5 X10*3/uL (4.8-10.8) 03/17/24 Plt Count 159 X10*3/uL (160-400) L 03/17/24 Sodium 144 mmol/L (135-145) 06/03/24 Potassium 3.9 mmol/L (3.3-5.1) 06/03/24 Chloride 104 mmol/L (96-108) 06/03/24 Carbon Dioxide 31 mmol/L (22-29) H 06/03/24 BUN 20 mg/dL (9-16) H 06/03/24 Creatinine 1.11 mg/dL (0.5-1.4) 06/03/24 Calcium 9.6 mg/dL (8.4-10.2) 06/03/24 Assessment & Plan Assessment & Plan (1) CKD (chronic kidney disease): Comment: Mild CKD in a setting of hypertension diabetes mellitus renal function stay Code(s): N18.9 - Chronic kidney disease, unspecified Category: Medical Plan: Goal is to slow the progressionof the kidney disease No significant proteinuria Maintain A1c less than 7% Maintain blood pressure less than 130/80 Continue to avoid nephrotoxic agents including NSAIDs. Superimposed PREETI due to hypoperfusion Cr back to baseline (2) (HFpEF) heart failure with preserved ejection fraction: Code(s): I50.30 - Unspecified diastolic (congestive) heart failure Category: Medical Plan: Well compensated On Lasix Follow-up with cardiology as needed Discussed low-salt (3) Hypertension: Code(s): I10 - Essential (primary) hypertension Category: Medical Qualifiers: Hypertension type: unspecified Qualified Code(s): I10 - Essential (primary) hypertension Plan: Blood pressure well controlled No changes were made to her antihypertensive medications No orthostatic BP changes observed today Orders: Orders Basic Metabolic Panel 4 Months N18.9 - Chronic kidney disease, unspecified Coding Level of Care Code Est Pt Level 4 (84964) Diagnoses CKD (chronic kidney disease) N18.9 (HFpEF) heart failure with preserved ejection fraction I50.30 Hypertension, unspecified type I10 Hypertension type: unspecified
[2024-06-06 12:02] VITALS: BP 100/60; BP 110/60
[2024-06-06 12:03] VITALS: BP 100/60
--- OUTSIDE RECORDS SUMMARY | 2024-06-06 13:23 | XMS_ITS ---
Author Organization [facility] Address [address] [place] [address] Care Team Providers Care Finish Cleaner Name Role Phone Reji Molina MD Primary Care Provider Unavailab Lianna Roque Unavailable [phone] REASON FOR VISIT Painful/Sore arch Encounters Encounter Location Date Provider Diagnosis [address] [address] 04/15/2024 Lianna Jacobo Plan Of Treatment Next Appt Details Provider Name:Lianna Jacobo , 07/18/2024 11:15:00 AM, [address] [place], [address], Progress Notes * Bianca HUNT ADOB:[birth year] (79 yo F)Acc No.[id number]:04/15/2024 Patient:?Bianca HUNT :1945???Age:79 Y???Sex:Female Address:[address] [facility] [address] * true * Date:? Generated for Printi ng/Fasebastiang/eTransmitting on:?06/06/2024 01:22 PM EST
--- OUTSIDE RECORDS SUMMARY | 2024-06-06 13:23 | XMS_ITS | Patient Health Record ---
Author Organization [facility] Address [address] [facility] [place] [address] Care Team Providers Care Wellness Program Administrator Name Role Phone Reji Molina MD Primary Care Provider Unavailab doe Lianna Jacobo Unavailable [phone] Esthela Chapa Unavailable [phone] Allergies Allergen (clinical drug ingredient) Drug/Non Drug [...] days Active Simvastatin Active Easy Touch Pen [place] Active Toujeo [employer] Not- Taking Metoprolol & [...] Problem Acquired hammer toe of right foot (489681816520593 5) Other hammer toe(s) (acquired), right foot (M20.41) Active confirmed Problem Acquired hallux valgus (63135152) Hallux valgus (acquired), left foot (M20.12) Active confirmed Problem Acquired hammer toe of left foot (195787420751983 3) Other hammer toe(s) (acquired), left foot (M20.42) Active confirmed Problem Acquired hallux valgus (18240609) Hallux valgus (acquired), right foot (M20.11) Active confirmed Problem Non-pressure ulcer lower limb (420303788) Non-pressure chronic ulcer of other part of left foot limited to breakdown of skin (L97.521) Active confirmed Problem Polyneuropathy due to type 2 diabetes mellitus (330226314) Type 2 diabetes mellitus with diabetic polyneuropathy (E11.42) Active confirmed Problem Gout (05450246) 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) Active confirmed Rx drug management (4) Problem Plantar fasciitis of left foot (428323026424350 01) Plantar fasciitis of left foot (M72.2) Active confirmed Problem Interstitial myositis (94237167) Interstitial myositis of left foot (M60.172) Active confirmed Vital Signs Blood pressure diastolic 70 mm Hg 04/18/2024 Height 5 ft 2 in in 04/18/2024 Blood pressure systolic 120 mm Hg 04/18/2024 Weight 162 lbs 04/18/2024 BMI 29.63 kg/m2 04/18/2024 Procedures Procedure Date Ordered Date Performed Result Body Sit e 33062-ASJY SKIN LESIONS, OVER 4 06/29/2023 N/A 39416-IRLK NAIL(S) 06/29/2023 N/A 46753-DQRI SKIN LESIONS, OVER 4 04/18/2024 N/A 08057-WVBR NAIL(S) 04/18/2024 N/A Encounters Encounter Location Date Provider Diagnosis [address] [address] 06/29/2023 Liannalópez Jacobo Type 2 diabetes mellitus with diabetic polyneuropathy E11.42 and Tinea pedis of both feet B35.[address] [address] 12/22/2023 Esthela Perica Pain in joint involving right ankle and foot M25.571 ; Gout of left foot M10.9 ; Pain in joint involving left ankle and foot M25.572 and Type 1 diabetes mellitus with diabetic polyneuropathy E10.[address] [address] 04/18/2024 Liannaadrian Jacobo Plantar fasciitis of left foot M72.2 ; Type 2 diabetes mellitus with diabetic polyneuropathy E11.42 ; Pain in left foot M79.672 ; Calcaneal spur, left foot M77.32 ; Interstitial myositis of left foot M60.172 ; Bursitis of left foot M77.52 and Xerosis of skin L85.3 [facility] [address] [address] 12/21/2023 Lianna Donnell [address] [address] 12/24/2023 Lianna Donnell [address] [address] 12/24/2023 Liannalópez Jacobo [address] [address] 03/21/2024 [facility] Donnell [address] [address] 04/15/2024 Lianna Jacobo Assessments Encounter Date Diagnosis [...] X ray : Foot, left 3V 12/22/2023 00135-TAZSAEL NAIL, 6 OR MORE 03/25/2011 53375-KXTUQEY NAIL, 6 OR MORE 06/13/2011 95715-HFGFMOY NAIL, 6 OR MORE 05/07/2012 82781-TEIWDYN NAIL, 6 OR MORE 08/13/2012 08244-VFMJAPU NAIL, 6 OR MORE 11/16/2012 52068-YWJHJJX NAIL, 6 OR MORE 02/18/2013 75854-AMUQSPB NAIL, 6 OR MORE 05/24/2013 57862-DMTFWJW NAIL, 6 OR MORE 08/30/2013 62274-NDMTJGM NAIL, 6 OR MORE 02/02/2014 89649-JBDRYPW NAIL, 6 OR MORE 07/31/2014 42569-JVWTDIW NAIL, 6 OR MORE 12/04/2014 51659-Miuc Destruction, 1-14 03/25/2011 80467-Vujb Destruction, 1-14 06/13/2011 55664-Gkotftit Plate 06/13/2011 86275-Zyxmneyl Plate 05/07/2012 48406-Wohiyyma Plate 03/25/2011 48792-Kqbegacd Plate 12/04/2014 22384-Nccuyekr Plate 07/31/2014 28451-Uezddwuw Plate 02/02/2014 72360-Fpksjxcy Plate 08/30/2013 91541-Feibdzxq Plate 05/24/2013 28394-Pvyfoumz Plate 12/11/2016 26609-Ckbnghtk Plate 03/25/2018 01350-Ydynbdqt Plate 11/19/2020 02958-Ejnfdzwd Plate 06/10/2021 69706-Jfthvonw Plate Each Additional 95473-Oxzlmgku Plate Each Additional 00786- Debride <25 sq cm 12/04/2014 99429- Debride <25 sq cm 08/05/2018 03913- Debride <25 sq cm 07/31/2014 14866 I&D ABSCESS- SIMPLE,SINGLE 016 77276 I&D ABSCESS- SIMPLE,SINGLE 016 69507- I&D ABSCESS-COMPLICATED,MULTI 07/2015 50815- I&D ABSCESS-COMPLICATED,MULTI , J0702- INJECT TENDON ORIGIN/INSER T 06/06/2015, J0702- INJECT TENDON ORIGIN/INSER T 04/16/2015, J0702- INJECT or DRAIN, JOINT/BUR SA 04/16/2015, J0702- INJECT or DRAIN, JOINT/BUR SA 06/06/2015 01010-DZDX SKIN LESIONS, OVER 4 11/20/19 21 49923-KULM SKIN LESIONS, OVER 4 07/27/19 21 41969-LHRC SKIN LESIONS, OVER 4 11/21/19 20 88615-KGQX SKIN LESIONS, OVER 4 02/27/20 20 15524-EBRK SKIN LESIONS, OVER 4 12/05/19 15 48701-HPHR SKIN LESIONS, OVER 4 05/24/19 14 39987-XYKX SKIN LESIONS, OVER 4 08/31/19 14 21433-PJFP SKIN LESIONS, OVER 4 02/03/20 14 45307-AHPB SKIN LESIONS, OVER 4 08/01/19 15 25347-DOWN SKIN LESIONS, OVER 4 08/14/19 13 82227-CJSW SKIN LESIONS, OVER 4 02/19/20 13 76181-IIAA SKIN LESIONS, OVER 4 11/17/19 13 44207-ANLR SKIN LESIONS, OVER 4 03/25/20 11 59421-VYMB SKIN LESIONS, OVER 4 05/07/19 13 44588-NOGO SKIN LESIONS, OVER 4 06/13/19 12 89097-RNYZ SKIN LESIONS, OVER 4 06/10/19 22 28545-KTOA SKIN LESIONS, OVER 4 12/10/19 22 03273-YPVT SKIN LESIONS, OVER 4 06/17/19 23 19802-LFAR SKIN LESIONS, OVER 4 04/18/19 25 72397-ODOC SKIN LESIONS, OVER 4 12/23/19 23 36740-JKNI SKIN LESIONS, OVER 4 06/29/19 24 15575-UJOS SKIN LESIONS, 2 TO 4 03/25/20 18 94101-CUWI SKIN LESIONS, 2 TO 4 04/16/19 16 03775-QUVO SKIN LESIONS, 2 TO 4 10/19/19 19 01332-IHIC SKIN LESIONS, 2 TO 4 02/01/20 19 80982-MGOK SKIN LESIONS, 2 TO 4 05/09/19 20 78179-AYCC SKIN LESIONS, 2 TO 4 08/15/19 20 18062-DFFF SKIN LESIONS, 2 TO 4 06/06/19 16 17520-ZYIJ SKIN LESIONS, 2 TO 4 08/15/19 16 17876-CENC SKIN LESIONS, 2 TO 4 12/10/19 16 54669-FQYS SKIN LESIONS, 2 TO 4 12/12/19 17 11542-HOKE SKIN LESIONS, 2 TO 4 01/15/20 18 59521-AWPS SKIN LESIONS, 2 TO 4 07/20/19 19 09486-UZLW NAIL(S) 07/19/2018 05884-NBSL NAIL(S) 03/25/2018 51773-JPIQ NAIL(S) 01/14/2018 40285-KQLO NAIL(S) 12/10/2015 74811-DFER NAIL(S) 12/11/2016 78652-ALAQ NAIL(S) 08/15/2019 71778-CVSW NAIL(S) 05/09/2019 30482-GKUV NAIL(S) 01/31/2019 65085-APHD NAIL(S) 10/18/2018 18039-HVAN NAIL(S) 02/27/2020 92947-JLHZ NAIL(S) 07/26/2020 60612-JPLO NAIL(S) 11/19/2020 85768-FGLB NAIL(S) 06/10/2021 04472-PNER NAIL(S) 06/16/2022 34149-MGEX NAIL(S) 12/09/2021 68923-RZBK NAIL(S) 06/29/2023 73454-IJXQ NAIL(S) 12/22/2022 69191-LESD NAIL(S) 04/18/2024 Q3327-TUJRAINJ DYSTROPHIC NAILS ANY # R1419-KCUXYYYD DYSTROPHIC NAILS ANY # B7572-AEMOIITQ DYSTROPHIC NAILS ANY # 78829 - Shave Biopsy of Skin Lesion 11/2018 Next Appt Details Provider Name:Lianna Jacobo , 07/18/2024 11:15:00 AM, [address] [facility], [place], [address], Insurance Providers Payer Name Payer Address Payer Phone Subscriber Number Group Number Insured Name Patient Relationship to Insured Coverage Start Date Coverage End Date Medicare National [employer] [address] [facility] [place] [address] [id number] Bianca Hunt Self - patient is the insured [employer] [address] [place] [address] [id number] Bianca Hunt Self - patient is the insured Medical (General) History Medical History History ICD Code thyroid disorder psoriasis mumps measles hypertension headaches/migraines diabetic chicken pox back, hip, knee pain osteoarthritis Anxiety disorder sciatica meter put on arm for blood sugar Surgical History Surgery Date(Month/Year) carpal tunnel surgery cataract surgery 2007 knee surgery skin cancer removed 2013, 2014 Hospitalization History Reason Date(Month/Year) [facility]- coughing, sick 03/2024 [facility]- Water around heart and lungs [facility]- Abdominal Pain-Infection - antibiot ic 06/06 [facility]- couldnt catch breath 2018 [facility] Pericarditis/ Pleurral Effusion 05/15 018
--- OUTSIDE RECORDS SUMMARY | 2024-06-06 13:23 | XMS_ITS | Clinical Summary ---
Author Organization [facility] Address [address] [place] [address] Phone Care Team Providers Care Meter Technician Name Role Phone Reji Molina MD Primary Care Provider [phone] Allergies Active Allergy Reactions Criticality Noted Date [...] patient's age to complete this topic Insurance [facility] MEDICARE [place]ID [place] [facility] [place]ID [place] Care Teams Meter Technician Relationship Specialty Start Date End Date Reji Molina MD [address] [place] [address] PCP - General 04/23/20
--- OUTSIDE RECORDS SUMMARY | 2024-06-06 13:23 | XMS_ITS ---
Author Organization [facility] Address [address] [place] [address] Care Team Providers Care Financial Aid Manager Name Role Phone Tracy MENDEZ, Reji Primary Care Provider Unavailab Lianna Roque [phone] Encounters Encounter Location Date Provider Diagnosis [address] [address] 03/21/2024 Lianna Jacobo Plan Of Treatment Next Appt Details Provider Name:Lianna Jacobo , 07/18/2024 11:15:00 AM, [address] [place], [address], Progress Notes * LEROYJacobBianca ADOB:[birth year] (79 yo F)Acc No.[id number]:03/21/2024 Progress Note Patient:?Bianca HUNT Provider:?Lianna Jacobo DPM :1945???Age:79 Y???Sex:Female D ate:03/21/2024 [address] [facility] [address] [place] Pcp:Reji Molina MD Subjective: * Chief Complaints: * ??? * Medical History:? Objective: * Vitals:? Assessment: Plan: * Treatment: * Images: * The named appointment provid er may or may not be the originator of this progress note, and it is not deemed complete until electronically signed by the appointment provider. Sign off status: Pending * Provider:nAton Jacobo DPM Date:?2023 Generated for Josefina neri/Amanda/Reshma on:?06/06/2024 01:22 PM EST
== END 2024-06-06 12:09 | disposition home or self-care (01) ==
PROVIDERS: PCP Internal Medicine; Visit Provider Internal Medicine Hypertension Specialist
DX: I12.9 Hypertensive chronic kidney disease with stage 1 through stage 4 chronic kidney disease, or unspecified chronic kidney disease (principal); N18.9 Chronic kidney disease, unspecified; I50.30 Unspecified diastolic (congestive) heart failure
CPT/HCPCS: 99214

== ENCOUNTER → 2024-06-06 11:35 | Outpatient (BNVA) | payer MEDICARE, SELFPAY | PROVIDERS: PCP Internal Medicine; Visit Provider Internal Medicine Hypertension Specialist | DX: E11.22 Type 2 diabetes mellitus with diabetic chronic kidney disease (principal); I13.0 Hypertensive heart and chronic kidney disease with heart failure and stage 1 through stage 4 chronic kidney disease, or unspecified chronic kidney disease; N18.9 Chronic kidney disease, unspecified; I50.31 Acute diastolic (congestive) heart failure; Z79.84 Long term (current) use of oral hypoglycemic drugs | CPT/HCPCS: 99212 ==

== ENCOUNTER 2024-06-19 13:31 | Inpatient (IN) | payer MEDICARE, SELFPAY ==
--- NOTE | ~2024-06-19 | CT_ITS ---
CLINICAL HISTORY: RLQ pain CT abdomen and pelvis with contrast Comparison: CT/REG/SR - CT ABDOMEN PELVIS W IV CON - 05/01/23 03:26 EST Findings: The lung bases are clear. Large area of geographic fatty infiltration within the liver without change. Moderate pancreatic atrophy. Multifocal scarring within the bilateral kidneys. No calcified gallstones. No bowel obstruction, pneumoperitoneum, or pneumatosis. Prior hysterectomy. Unremarkable urinary bladder. Normal appendix. No acute fracture. IMPRESSION: No acute abdominal disease. Chronic findings as above. This document has been electronically signed by: Monika Farias MD on 06/19/2024 17:05:13
[2024-06-19 13:37] VITALS: BP 133/78; PULSE 72; O2SAT 95
--- NOTE | 2024-06-19 13:40 | ECG_ITS ---
Test Reason : ABD PAIN Blood Pressure : */* mmHG Vent. Rate : 59 BPM Atrial Rate : * BPM P-R Int : * ms QRS Dur : 72 ms QT Int : 482 ms P-R-T Axes : * 9 58 degrees QTcB Int : 477 ms Atrial fibrillation with slow ventricular response Abnormal ECG When compared with ECG of 04-Oct-2023 01:07, Vent. rate has decreased by 29 bpm No significant changes seen Referred By: Ryanne Benites Electronically Signed By: VÍCTOR PHAM
[2024-06-19 13:42] VITALS: BP 143/60; PULSE 62; RESP 16; TEMP 36.4; O2SAT 91; BMI 29.3
--- NOTE | 2024-06-19 14:01 | ED.ABDPAIN ---
HPI - Abdominal Pain General Chief Complaint: Abdominal Pain Stated Complaint: ABD PAIN Time Seen by Provider: 06/19/24 13:38 Source: patient, EMS and old records reviewed Mode of arrival: EMS Limitations: no limitations History of Present Illness ED Provider: AILYN HPI narrative: 79 yo female with PMH of afib on eliquis, CHF, CKD, pulm HTN, CAD, HLD, DM2, PRN O2 at home, hypothyroidism who has hx of appendicitis about a year ago treated with IV and oral antibiotics. She has done well until around 5am she started with lower abdominal pain and now R sided lower abdominal pain. Mild nausea. No fevers, no v/d, urinary symptoms. Given fentanyl en route by EMS. She states it feels just like when she had her appendicitis. MD elicited complaint: abdominal pain Onset (ago): day(s) (this AM ) Pain Consistency: constant Location: RLQ Severity: severe Quality: stabbing and aching Radiation: none Migration to: no migration Exacerbating factors: movement Relieving factors: nothing Context: history of similar episodes Associated symptoms: nausea Treatments prior to arrival: other (IV fentanyl) Related Data Home Medications ?Medication ?Instructions ?Recorded ?Confirmed alprazolam 1 mg tablet 1 mg PO TID 03/19/20 06/06/24 metoprolol tartrate 25 mg tablet 25 mg PO BID 03/19/20 06/06/24 cyanocobalamin (vitamin B-12) 1,000 mcg IM Q28D 03/29/20 06/06/24 1,000 mcg/mL injection solution lancets #100 ea 04/18/20 05/05/24 blood sugar diagnostic (Contour 02/18/21 05/05/24 Next Test Strips) 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 meter (Contour Next 02/18/21 05/05/24 One Meter) paroxetine HCl 40 mg tablet 40 mg PO DAILY 06/17/22 06/06/24 ferrous sulfate 325 mg (65 mg 325 mg PO DAILY 10/04/23 06/06/24 iron) tablet carbidopa 25 mg-levodopa 100 mg 1 tab PO TID 10/20/23 06/06/24 tablet furosemide 20 mg tablet (Lasix) 40 mg PO DAILY 11/03/23 06/06/24 insulin degludec 100 unit/mL (3 46 unit subcut DAILY 05/04/24 06/06/24 mL) subcutaneous pen (Tresiba FlexTouch U-100 insulin) Previous Rx's ?Medication ?Instructions ?Recorded pen needle, diabetic 31 gauge x #100 ea 04/28/2006/26 cholecalciferol (vitamin D3) 50 50 mcg PO DAILY 30 days #90 caps 08/29/21 mcg (2,000 unit) capsule atorvastatin 40 mg tablet 40 mg PO BEDTIME #30 tabs 03/18/22 empagliflozin 10 mg tablet 10 mg PO DAILY #60 tabs 10/06/23 (Jardiance) 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 sensor (FreeStyle #2 ea 11/05/23 Sanjeev 3 Sensor device) 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 meter,continuous #1 ea 11/06/23 (FreeStyle Sanjeev 3 [place]) apixaban 5 mg tablet (Eliquis) 5 mg PO BID #180 tabs 04/04/24 losartan 50 mg tablet 50 mg PO DAILY 90 days #90 tabs 04/21/24 levothyroxine 137 mcg tablet 137 mcg PO DAILY 90 days #90 tabs 06/09/24 Allergies Allergy/AdvReac Type Severity Reaction Status Date / Time baclofen AdvReac Unknown CONFUSION, Verified 06/19/24 13:51 OUT OF IT oxycodone [From Percocet] AdvReac Unknown NAUSEA Verified 06/19/24 13:51 Review of Systems Review of Systems Constitutional : No Weight loss, No Fever, No Chills ENT/Mouth : No sore throat, No Rhinorrhea Eyes: No Swelling, No Redness Cardiovascular : No Chest Pain, No SOB, NoEdema Respiratory : No Cough, No Sputum, No Wheezing Gastrointestinal : Positive Nausea, no Vomiting, no Diarrhea, positive abdominal Pain, No Hematochezia, No Melena Genitourinary : No Dysuria, No Urinary Frequency, No Hematuria, No Urgency Musculoskeletal : No joint pain, No Myalgias, No Joint Swelling Skin : No Skin Lesions, No rash Neuro : No Weakness, No Numbness, No Dizziness, No Headache All other systems reviewed and are negative. [facility] Past Medical History Attestation statement: The following information was validated with the patient. Source: old records reviewed Medical History (HFpEF) heart failure with preserved ejection fraction CKD (chronic kidney disease) Pulmonary hypertension Atrial fibrillation Persistent atrial fibrillation CAD (coronary artery disease) Vitamin D deficiency HLD (hyperlipidemia) T2DM (type 2 diabetes mellitus) Acute exacerbation of congestive heart failure Hypertension Parkinson disease Hypothyroid Diabetes Surgical History Hx of cardiac cath (~01/2017) Hx of carpal tunnel repair Hx of knee surgery Hx of hysterectomy Family History Family History Father No problems noted. Mother T2DM (type 2 diabetes mellitus) Brother T2DM (type 2 diabetes mellitus) Social History Social History Household Members: None Housing: House Do you presently have visiting nurse or other home services: No Alcohol intake: current Alcohol intake frequency: holidays/special occasions only Alcohol type: wine Patient Tobacco Use Status: Former Tobacco user Tobacco use type: Cigarette Smoked in Last 30 Days: No Use of substances other than those prescribed or required for medical reasons: No Advance Directives: Yes Advance Directives on File: Yes Advance Directives Date on File: 03/22/20 Do you have a plan to hurt others: No Plan service: No Current occupational status: retired Physical Exam ED Vital Signs: Vital Signs - 24 hr 06/19/24 13:42 Temperature 97.6 F Pulse Rate 62 Respiratory Rate 16 Blood Pressure 143/60 H Pulse Oximetry 91 L Oxygen Delivery Method Room Air BMI result Body Mass Index 29.3 Appearance: Alert. Oriented X3. No acute distress. Eyes: Pupils equal, round and reactive to light. ENT: Pharynx normal. Neck: Normal inspection. Neck supple. CVS: Normal heart rate and rhythm. Pulses normal. Respiratory: No respiratory distress. Breath sounds normal. Abdomen: Soft and moderate RLQ ttp no rebound or guarding Skin: Skin warm and dry. Normal skin color. Normal skin turgor. Extremities: No lower extremity edema. No calf ttp Neuro: Oriented X 3. No motor deficit. No sensory deficit. CN2-12 intact Course Course Course Narrative: trop elevated but slightly higher than baseline has no CP Reevaluation(s) Reevaluation #1: signed out to Dr. Michelle pending further work up she still has RLQ pain but CT scan read negative did ask Dr. Rambisoon to review images Medical Decision Making Medical Decision Making MDM Narrative: 79 yo female with PMH of afib on eliquis, CHF, CKD, pulm HTN, CAD, HLD, DM2, hypothyroidism prior medically managed appendicitis now here with c/o RLQ pain and nausea on exam she has ttp but no rebound or guarding. I have ordered IV pain medications, IV abx, CT scan of abdomen. Possible appendicitis, renal colic, colitis, constipation. Differential Diagnosis Differential Diagnoses: The differential diagnosis associated with the presentation includes renal colic, constipation, appendicitis Admission/Observation Consideration of admission/observation: Escalation of care including admission/observation considered Lab Data [facility] Lab Attestation statement: I reviewed the patient's lab results. 06/19/24 14:04 06/19/24 14:04 Labs: Lab Results 06/19/24 06/19/24 06/19/24 Range/Units 14:04 14:13 16:05 WBC 7.0 (4.8-10.8) X10*3/uL RBC 5.48 (4.20-5.50) X10*6/uL Hgb 17.2 H (12.0-16.0) g/dl Hct 52.0 H (37.0-47.0) % MCV 94.9 (80.0-98.0) fL MCH 31.4 (27.0-33.0) pg MCHC 33.1 (31.0-35.0) g/dl RDW 13.2 (11.0-16.0) % Plt Count 174 (160-400) X10*3/uL MPV 11.7 (9.4-12.3) fL Immature Gran % (Auto) 0.6 H (0.0-0.4) % Neut % (Auto) 74.0 H (45-73) % Lymph % (Auto) 14.5 L (20-40) % [place] % (Auto) 8.4 (2-11) % Eos % (Auto) 1.8 (0-4) % Baso % (Auto) 0.7 (0-2) % Lymph # (Auto) 1.0 L (1.2-4.9) X10*3/uL [place] # (Auto) 0.6 (0.1-1.2) X10*3/uL Eos # (Auto) 0.1 (0.0-0.4) X10*3/uL Baso # (Auto) 0.1 (0.0-0.2) X10*3/uL Abs Immat Gran (auto) 0.04 H (0.00-0.03) X10*3/uL Absolute Neuts (auto) 5.2 (2.0-8.3) x10*3/uL Absolute Nucleated RBC 0.000 (0.0-0.012) X10*3/uL Nucleated RBC % (auto) 0.0 (0.0-0.2) /100WBC PT 16.7 H (10.9-12.4) SEC INR 1.4 H (0.9-1.1) VBG pH 7.41 (7.32-7.43) VBG pCO2 47 mmHg VBG pO2 69 mmHg VBG HCO3 30 H (22-26) mmol/L VBG O2 Saturation 95.0 % VBG Base Excess 4.8 mmol/L Sodium 142 (135-145) mmol/L Potassium 3.8 (3.3-5.1) mmol/L Chloride 101 (96-108) mmol/L Carbon Dioxide 30 H (22-29) mmol/L Anion Gap 15 (12-20) BUN 18 H (9-16) mg/dL Creatinine 1.04 (0.5-1.4) mg/dL Estim Creat Clear Calc 41.6 Estimated GFR 51 Random Glucose 209 H (60-115) mg/dL Lactic Acid 1.5 (0.5-2.0) mmol/L Calcium 9.9 (8.4-10.2) mg/dL Magnesium 1.9 (1.6-2.6) mg/dL Total Bilirubin 1.3 H (0.0-1.0) mg/dL Direct Bilirubin 0.4 (0.0-0.5) mg/dL AST 36 H (5-31) U/L ALT 17 (0-31) U/L Alkaline Phosphatase 140 H (39-117) U/L Troponin I High Sens 55.5 H* D 47.2 H (<3.5-17.0) ng/L Total Protein 7.6 (6.5-8.0) g/dL Albumin 4.2 (3.5-5.0) g/dL Lipase 14 (8-78) U/L Influenza Type A (PCR) NEGATIVE (Negative) Influenza Type B (PCR) NEGATIVE (Negative) RSV RNA Qual (PCR) NEGATIVE (Negative) SARS-CoV-2 RNA (RT-PCR) NEGATIVE (Negative) Independent Interpretation I performed an independent interpretation of an: EKG and CT Scan Interpretation: Rate: 59 Rhythm: afib [place]: normal Normal QRS complex. ST T wave : flat t waves throughout no KAILEE qTC: 477 prior studies: no acute ischemia The study has been interpreted contemporaneously by me. . Radiology Impression Discussion of test interpretation with radiology: I have reviewed the radiologist's reading. Independent Historian Clinical information obtained from an independent historian. History obtained from or confirmed by: EMS External Record Review External record reviewed: Inpatient record and Outpatient record Medications Administered Discontinued Medications Generic Name Dose Route Start Last Admin Trade Name Freq PRN Reason Stop Dose Admin Hydromorphone HCl 0.5 mg 06/19/24 13:39 06/19/24 14:32 Hydromorphone Hcl 0.5 Mg/0.5 Ml Syringe IVPUSH 06/19/24 13:40 0.5 mg ONCE ONE Administration Protocol Piperacillin Sod/Tazobactam 50 mls @ 100 mls/hr 06/19/24 13:39 06/19/24 15:02 Sod 3.375 gm/ Sodium Chloride IV 06/19/24 14:08 Infused ONCE ONE Infusion Iohexol 100 ml 06/19/24 15:34 06/19/24 15:34 Iohexol 350 Mg/Ml 100 Ml Infus..Btl IV 06/19/24 15:35 85 ml ONCE ONE Administration Ondansetron HCl 4 mg 06/19/24 13:39 06/19/24 14:32 Ondansetron Hcl 4 Mg/2 Ml Vial IVPUSH 06/19/24 13:40 4 mg ONCE ONE Administration Discharge Plan Discharge Clinical Impression: Abdominal pain Qualifiers: Abdominal location: right lower quadrant Qualified Code(s): R10.31 - Right lower quadrant pain Patient Disposition: Still a Patient Instructions: Abdominal Pain (ED) Prescriptions: No Action (DME) pen needle, diabetic 31 gauge x 3/16 needle See Rx Instructions subcut DIRECTED Qty: 100 11RF Rx Instructions: 4x daily cholecalciferol (vitamin D3) 50 mcg (2,000 unit) capsule 50 mcg PO DAILY 30 Days Qty: 90 3RF atorvastatin 40 mg tablet 40 mg PO BEDTIME Qty: 30 0RF (DME) FreeStyle Sanjeev 3 Sensor Device See Rx Instructions .ROUTE .MEDSUPPLY Qty: 2 11RF Rx Instructions: As directed E11.8 (DME) FreeStyle Sanjeev 3 [place] Misc See Rx Instructions .ROUTE .MEDSUPPLY Qty: 1 0RF Rx Instructions: As directed E&M code 11.8 Eliquis 5 mg tablet 5 mg PO BID Qty: 180 3RF alprazolam 1 mg Tablet 1 mg PO TID metoprolol tartrate 25 mg Tablet 25 mg PO BID paroxetine HCl 40 mg tablet 40 mg PO DAILY ferrous sulfate 325 mg (65 mg iron) Tablet 325 mg PO DAILY Jardiance 10 mg Tablet 10 mg PO DAILY Qty: 60 0RF (DME) lancets Misc See Rx Instructions .ROUTE TID Qty: 100 Rx Instructions: As directed cyanocobalamin (vitamin B-12) 1,000 mcg/mL solution 1,000 mcg IM Q28D Patient Comments: per patient and daughter, last injection was last week, they are unsure what day. (DME) Contour Next Test Strips Strip See Rx Instructions .Route Rx Instructions: As directed 3 times a day (DME) 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 meter [Contour Next One Meter] Misc See Rx Instructions .Route Rx Instructions: As directed Tresiba FlexTouch U-100 100 unit/mL (3 mL) insulin pen 46 unit subcut DAILY furosemide [Lasix] 20 mg tablet 40 mg PO DAILY carbidopa-levodopa 25-100 mg tablet 1 tab PO TID losartan 50 mg tablet 50 mg PO DAILY 90 Days Qty: 90 1RF levothyroxine 137 mcg tablet 137 mcg PO DAILY 90 Days Qty: 90 3RF Print Language: Thai
[2024-06-19 14:13] LABS: Basophils Absolute Auto 0.1 X10*3/uL (0.0-0.2); Basophils Percent Auto 0.7 % (0-2); Eosinophils Absolute Auto 0.1 X10*3/uL (0.0-0.4); Eosinophils Percent Auto 1.8 % (0-4); Hemoglobin 17.2 g/dl (12.0-16.0); Imm Gran Abs Auto 0.04 X10*3/uL (0.00-0.03); Imm Gran Pct Auto 0.6 % (0.0-0.4); Lymphocytes Percent Auto 14.5 % (20-40); MANUAL DIFF FLAG NO; Mean Corpuscular HGB Conc 33.1 g/dl (31.0-35.0); Mean Corpuscular Hemoglobin 31.4 pg (27.0-33.0); Mean Corpuscular Volume 94.9 fL (80.0-98.0); Mean Platelet Volume 11.7 fL (9.4-12.3); Monocytes Absolute Auto 0.6 X10*3/uL (0.1-1.2); Monocytes Percent Auto 8.4 % (2-11); Neutrophils Absolute Auto 5.2 x10*3/uL (2.0-8.3); Platelet Count 174 X10*3/uL (160-400); Red Blood Count 5.48 X10*6/uL (4.20-5.50); Red Cell Distribution Width 13.2 % (11.0-16.0)
[2024-06-19 14:16] LABS: Venous Blood Gas Refer to POC result
[2024-06-19 14:18] LABS: VBG Base Excess 4.8 mmol/L; VBG HCO3 30 mmol/L (22-26); VBG pCO2 47 mmHg; VBG pH 7.41 (7.32-7.43); VBG pO2 69 mmHg
[2024-06-19 14:19] LABS: INTERNATIONAL NORM RATIO 1.4 (0.9-1.1); Prothrombin Time 16.7 SEC (10.9-12.4)
--- OUTSIDE RECORDS SUMMARY | 2024-06-19 14:22 | XMS_ITS | Patient Health Record ---
[facility] Address [address] [place] [address] Care Team Providers Care Ceo & Board Director Name Role Phone Reji Molina MD Primary Care Provider Unavailab doe Lianna Jacobo Unavailable [phone] Esthela Chapa Unavailable [phone] Allergies Allergen (clinical drug ingredient) Drug/Non Drug [...] Problem Acquired hammer toe of right foot (979374746290840 5) Other hammer toe(s) (acquired), right foot (M20.41) Active confirmed Problem Acquired hallux valgus (33696214) Hallux valgus (acquired), left foot (M20.12) Active confirmed Problem Acquired hammer toe of left foot (908770582107132 3) Other hammer toe(s) (acquired), left foot (M20.42) Active confirmed Problem Acquired hallux valgus (13470199) Hallux valgus (acquired), right foot (M20.11) Active confirmed Problem Non-pressure ulcer lower limb (687647610) Non-pressure chronic ulcer of other part of left foot limited to breakdown of skin (L97.521) Active confirmed Problem Polyneuropathy due to type 2 diabetes mellitus (697262980) Type 2 diabetes mellitus with diabetic polyneuropathy (E11.42) Active confirmed Problem Gout (98966832) 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) Active confirmed Rx drug management (4) Problem Plantar fasciitis of left foot (658776418472386 01) Plantar fasciitis of left foot (M72.2) Active confirmed Problem 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 Vital Signs Blood pressure diastolic 70 mm Hg 04/18/2024 Height 5 ft 2 in in 04/18/2024 Blood pressure systolic 120 mm Hg 04/18/2024 Weight 162 lbs 04/18/2024 BMI 29.63 kg/m2 04/18/2024 Procedures Procedure Date Ordered Date Performed Result Body Sit e 62517-FRBZ SKIN LESIONS, OVER 4 06/29/2023 N/A 68302-WMML NAIL(S) 06/29/2023 N/A 53137-OKOM SKIN LESIONS, OVER 4 04/18/2024 N/A 65500-UANZ NAIL(S) 04/18/2024 N/A Encounters Encounter Location Date Provider Diagnosis [address] [address] 06/29/2023 Liannalópez Jacobo Type 2 diabetes mellitus with diabetic polyneuropathy E11.42 and Tinea pedis of both feet B35.[address] [address] 12/22/2023 Esthela Perica Pain in joint involving right ankle and foot M25.571 ; Gout of left foot M10.9 ; Pain in joint involving left ankle and foot M25.572 and Type 1 diabetes mellitus with diabetic polyneuropathy E10.[address] [address] 04/18/2024 Liannaadrian Jacobo Plantar fasciitis of left foot M72.2 ; Type 2 diabetes mellitus with diabetic polyneuropathy E11.42 ; Pain in left foot M79.672 ; Calcaneal spur, left foot M77.32 ; Interstitial myositis of left foot M60.172 ; Bursitis of left foot M77.52 and Xerosis of skin L85.3 [facility] [address] [address] 12/21/2023 Lianna Donnell [address] [address] 12/24/2023 Lianna Donnell [address] [address] 12/24/2023 Liannalópez Jacobo [address] [address] 03/21/2024 [facility] Donnell [address] [address] 04/15/2024 Lianna Jacobo Assessments Encounter Date Diagnosis [...] X ray : Foot, left 3V 12/22/2023 56168-PCZALAW NAIL, 6 OR MORE 03/25/2011 82364-IQRHGOZ NAIL, 6 OR MORE 06/13/2011 29255-DSLKZHU NAIL, 6 OR MORE 05/07/2012 88326-YHGWUSE NAIL, 6 OR MORE 08/13/2012 21280-BLHEPUN NAIL, 6 OR MORE 11/16/2012 19494-WPVSZCD NAIL, 6 OR MORE 02/18/2013 30314-VTGMPIU NAIL, 6 OR MORE 05/24/2013 82282-VJFJJII NAIL, 6 OR MORE 08/30/2013 33807-GHWMGQN NAIL, 6 OR MORE 02/02/2014 82750-XAZRNPL NAIL, 6 OR MORE 07/31/2014 14863-VIABAIX NAIL, 6 OR MORE 12/04/2014 04553-Plwt Destruction, 1-14 03/25/2011 88309-Fpss Destruction, 1-14 06/13/2011 85181-Oeinzwwb Plate 06/13/2011 66252-Jwwsorap Plate 05/07/2012 65989-Riamretv Plate 03/25/2011 34570-Yxulurdo Plate 12/04/2014 41514-Biqmnfti Plate 07/31/2014 06944-Iizetmkl Plate 02/02/2014 27570-Athoaaaq Plate 08/30/2013 08729-Ivsfqpnw Plate 05/24/2013 92077-Oiksxgjg Plate 12/11/2016 91975-Zouwwfan Plate 03/25/2018 04892-Eiitfftg Plate 11/19/2020 71861-Hthxuvgy Plate 06/10/2021 27596-Qetfzivh Plate Each Additional 89712-Cisvurjm Plate Each Additional 28674- Debride <25 sq cm 12/04/2014 17959- Debride <25 sq cm 08/05/2018 39176- Debride <25 sq cm 07/31/2014 58890 I&D ABSCESS- SIMPLE,SINGLE 016 04848 I&D ABSCESS- SIMPLE,SINGLE 016 19521- I&D ABSCESS-COMPLICATED,MULTI 07/2015 04996- I&D ABSCESS-COMPLICATED,MULTI , J0702- INJECT TENDON ORIGIN/INSER T 06/06/2015, J0702- INJECT TENDON ORIGIN/INSER T 04/16/2015, J0702- INJECT or DRAIN, JOINT/BUR SA 04/16/2015, J0702- INJECT or DRAIN, JOINT/BUR SA 06/06/2015 06096-PKIU SKIN LESIONS, OVER 4 11/20/19 21 31252-NXRT SKIN LESIONS, OVER 4 07/27/19 21 60538-EWCY SKIN LESIONS, OVER 4 11/21/19 20 16760-VJEK SKIN LESIONS, OVER 4 02/27/20 20 85401-RHPU SKIN LESIONS, OVER 4 12/05/19 15 95745-SGWD SKIN LESIONS, OVER 4 05/24/19 14 35996-TCPL SKIN LESIONS, OVER 4 08/31/19 14 27344-EHRQ SKIN LESIONS, OVER 4 02/03/20 14 46728-OYHE SKIN LESIONS, OVER 4 08/01/19 15 38690-QHXK SKIN LESIONS, OVER 4 08/14/19 13 86305-IHWX SKIN LESIONS, OVER 4 02/19/20 13 63395-EBLT SKIN LESIONS, OVER 4 11/17/19 13 39570-UMJI SKIN LESIONS, OVER 4 03/25/20 11 28908-DPHI SKIN LESIONS, OVER 4 05/07/19 13 50032-TUTV SKIN LESIONS, OVER 4 06/13/19 12 10453-STMR SKIN LESIONS, OVER 4 06/10/19 22 78223-SMHF SKIN LESIONS, OVER 4 12/10/19 22 55260-HBVZ SKIN LESIONS, OVER 4 06/17/19 23 87083-PQZQ SKIN LESIONS, OVER 4 04/18/19 25 56332-ZHMQ SKIN LESIONS, OVER 4 12/23/19 23 73118-WXHX SKIN LESIONS, OVER 4 06/29/19 24 75775-DINR SKIN LESIONS, 2 TO 4 03/25/20 18 23616-MCCX SKIN LESIONS, 2 TO 4 04/16/19 16 36711-PTOS SKIN LESIONS, 2 TO 4 10/19/19 19 48122-KCXX SKIN LESIONS, 2 TO 4 02/01/20 19 88843-OSIS SKIN LESIONS, 2 TO 4 05/09/19 20 05728-CCNC SKIN LESIONS, 2 TO 4 08/15/19 20 89691-SBHU SKIN LESIONS, 2 TO 4 06/06/19 16 38282-PDUY SKIN LESIONS, 2 TO 4 08/15/19 16 95771-JMXC SKIN LESIONS, 2 TO 4 12/10/19 16 91845-ZXQV SKIN LESIONS, 2 TO 4 12/12/19 17 70534-ORQR SKIN LESIONS, 2 TO 4 01/15/20 18 60441-JMXD SKIN LESIONS, 2 TO 4 07/20/19 19 34777-ZIHP NAIL(S) 07/19/2018 43283-OTLH NAIL(S) 03/25/2018 46529-FZGD NAIL(S) 01/14/2018 05298-XHKG NAIL(S) 12/10/2015 10644-PCHZ NAIL(S) 12/11/2016 86788-MRAT NAIL(S) 08/15/2019 02747-ZJBP NAIL(S) 05/09/2019 79891-EREF NAIL(S) 01/31/2019 62255-NLHG NAIL(S) 10/18/2018 78726-ZSXM NAIL(S) 02/27/2020 02221-GZDX NAIL(S) 07/26/2020 37770-DFQR NAIL(S) 11/19/2020 88209-XETK NAIL(S) 06/10/2021 27467-DHWC NAIL(S) 06/16/2022 90341-EJTL NAIL(S) 12/09/2021 58795-CTCD NAIL(S) 06/29/2023 43715-KDCU NAIL(S) 12/22/2022 26363-WJTG NAIL(S) 04/18/2024 L9399-BYDIOFLC DYSTROPHIC NAILS ANY # X8297-QZZBPOZO DYSTROPHIC NAILS ANY # E4636-AYISHVRO DYSTROPHIC NAILS ANY # 67371 - Shave Biopsy of Skin Lesion 11/2018 Next Appt Details Provider Name:Lianna Jacobo , 07/18/2024 11:15:00 AM, [address] [facility], [place], [address], Insurance Providers Payer Name Payer Address Payer Phone Subscriber Number Group Number Insured Name Patient Relationship to Insured Coverage Start Date Coverage End Date Medicare National Govt [employer] [address] [place] [address] [id number] Bianca Hunt Self - patient is the insured [employer] [address] [place] [address] [id number] Bianca Hunt Self - patient is the insured Medical (General) History Medical History History ICD Code thyroid disorder psoriasis mumps measles hypertension headaches/migraines diabetic chicken pox back, hip, knee pain osteoarthritis Anxiety disorder sciatica meter put on arm for blood sugar Surgical History Surgery Date(Month/Year) carpal tunnel surgery cataract surgery 2007 knee surgery skin cancer removed 2013, 2014 [place]ization History Reason Date([place] [facility] [place], [place] [facility] around heart [place] [facility] [place]fection - antibiot ic [place] [facility] [place] [facility] [place] Pleurral Effusion 05/15 018
--- OUTSIDE RECORDS SUMMARY | 2024-06-19 14:22 | XMS_ITS ---
Author Organization [facility] Address [address] [place] [address] Care Team Providers Care Director Investor Relations Name Role Phone Tracy MENDEZ, Reji Primary Care Provider Unavailab Lianna Roque [phone] Encounters Encounter Location Date Provider Diagnosis [address] [address] 03/21/2024 Lianna Jacobo Plan Of Treatment Next Appt Details Provider Name:Lianna Jacobo , 07/18/2024 11:15:00 AM, [address] [place], [address], Progress Notes * LEROYJacobBianca ADOB:[birth year] (79 yo F)Acc No.[id number]:03/21/2024 Progress Note Patient:?Bianca HUNT Provider:?Lianna Jacobo DPM :1945???Age:79 Y???Sex:Female D ate:03/21/2024 [address] [facility] [address] [place] Pcp:Reji Molina MD Subjective: * Chief Complaints: [...] Jacobo DPM Date:?2023 Generated for Josefina neri/Amanda/Reshma on:?06/19/2024 02:21 PM EDT
--- OUTSIDE RECORDS SUMMARY | 2024-06-19 14:22 | XMS_ITS ---
Author Organization [facility] Address [address] [place] [address] Care Team Providers Care Pug Mill Operator Helper Name Role Phone Reji Molina MD Primary Care Provider Unavailab Lianna Roque Unavailable [phone] REASON FOR VISIT Painful/Sore arch Encounters Encounter Location Date Provider Diagnosis [address] [address] 04/15/2024 Lianna Jacobo Plan Of Treatment Next Appt Details Provider Name:Lianna Jacobo , 07/18/2024 11:15:00 AM, [address] [place], [address], Progress Notes * Bianca HUNT ADOB:[birth year] (79 yo F)Acc No.[id number]:04/15/2024 Patient:?LEROY Bianca Mcgowan :1945???Age:79 Y???Sex:Female [address] [facility] [place] [address] * true * Date:? Generated for Printi ng/Faxing/eTransmitting on:?06/19/2024 02:21 PM EDT
--- OUTSIDE RECORDS SUMMARY | 2024-06-19 14:22 | XMS_ITS | Clinical Summary ---
Author Organization [facility] Address [address] [place] [address] Phone Care Team Providers Care Repair Electric Motor Assembler Name Role Phone Reji Molina MD Primary Care Provider [phone] Allergies Active Allergy Reactions Criticality Noted Date [...] patient's age to complete this topic Insurance [facility] MEDICARE [place] [facility] [place] Care Teams Repair Electric Motor Assembler Relationship Specialty Start Date End Date Reji Molina MD [address] [place] [address] PCP - General 04/23/20
[2024-06-19 14:28] LABS: Lactic Acid 1.5 mmol/L (0.5-2.0)
[2024-06-19] MEDS: ondansetron HCL 4 MG/2 ML VIAL IVPUSH (14:32)
[2024-06-19] MEDS: HYDROmorphone HCl 0.5 MG/0.5 ML SYRINGE IVPUSH (14:32)
[2024-06-19 14:33] LABS: Alanine Aminotransferase 17 U/L (0-31); Albumin Level 4.2 g/dL (3.5-5.0); Alkaline Phosphatase 140 U/L (39-117); Anion Gap 15 (12-20); Aspartate Amino Transferase 36 U/L (5-31); Bilirubin Direct 0.4 mg/dL (0.0-0.5); Bilirubin Total 1.3 mg/dL (0.0-1.0); Blood Urea Nitrogen 18 mg/dL (9-16); Calcium 9.9 mg/dL (8.4-10.2); Carbon Dioxide 30 mmol/L (22-29); Chloride 101 mmol/L (96-108); Creatinine Clr Calc Pharmacy 41.6; Estimated Glomerular Filt Rate 51; Glucose Random 209 mg/dL (60-115); Lipase 14 U/L (8-78); Magnesium 1.9 mg/dL (1.6-2.6); Potassium 3.8 mmol/L (3.3-5.1); Sodium 142 mmol/L (135-145); Total Protein 7.6 g/dL (6.5-8.0)
[2024-06-19] MEDS: Piperacillin Sodium/Tazobactam 3.375 GM in 0.9 % Sodium Chloride 50 ML IV ×2 (14:33→22:19)
[2024-06-19 14:42] LABS: Troponin-I High Sensitivity 55.5 ng/L (<3.5-17.0)
[2024-06-19 14:51] LABS: Influenza A PCR NEGATIVE (Negative); Influenza B PCR NEGATIVE (Negative); Resp Syncy Virus RNA Qual PCR NEGATIVE (Negative); SARS COV2 PCR INHOUSE NEGATIVE (Negative)
[2024-06-19] MEDS: iohexoL 350 MG/ML 100 ML INFUS..BTL IV (15:34)
[2024-06-19 16:35] LABS: Troponin-I High Sensitivity 47.2 ng/L (<3.5-17.0)
[2024-06-19 18:41] VITALS: BP 121/59; PULSE 61; RESP 18; O2SAT 96
--- NOTE | 2024-06-19 20:34 | PM.IMHP ---
History of Present Illness Date of Service: 06/19/24 Attending physician on admission: Andrés Marie Chief Complaint: RLQ pain Patient is a 79-year-old female with a past medical history significant for acute appendicitis treated with antibiotics in April of 2023, hypothyroid, HFpEF, CKD, AFib on Eliquis, HLD, CAD, type 2 diabetes, Parkinson's, p.r.n. oxygen at home for unknown reason, who presented to the ED today due to 10/10 right lower quadrant pain starting this morning. She reports that she had a normal bowel movement this morning and later had this pain, she reports that the pain has now subsided. She has had no further nausea or vomiting. She did report a tactile fever but no fever measured. The pain did radiate to her left lower quadrant which is again dissipated. She denies any urinary symptoms including frequency, dysuria or urgency. She has no additional symptoms but reports that she does have irritable bowel syndrome and has been followed by GI. Patient's case was discussed with the on-call surgeon by the ED provider who suggested admission for observation and surgical/GI consultation tomorrow morning. She was placed on Zosyn prophylactically, Eliquis held due to possibility of surgery although no acute appendicitis seen on CT scan. Review of Systems Constitutional: Constitutional: Denies chills, Denies fatigue, Denies fever(s) and Denies headache(s) Eyes: Eyes: Denies change in vision and Denies photophobia ENT: Denies headache(s), Denies nasal congestion and Denies sore throat Cardiovascular: Cardiovascular: Denies chest pain, Denies rapid heart rate, Denies leg edema, Denies lightheadedness and Denies dyspnea Respiratory: Respiratory: Denies chest congestion, Denies cough, Denies dyspnea and Denies wheezing Gastrointestinal: Gastrointestinal: Reports abdominal pain, Denies melena, Denies coffee ground emesis, Denies constipation, Denies diarrhea, Reports nausea, Reports vomiting and Denies hematemesis Genitourinary: Genitourinary: Denies hematuria, Denies dysuria and Denies urinary urgency Musculoskeletal: Musculoskeletal: Denies myalgias Integumentary/Breasts: Skin/Breast: Denies rash Neurologic: Denies confusion and Denies headache(s) Psychiatric: Psychiatric: Denies confusion Endocrine: Endocrine: Denies fatigue Hematologic/Lymphatic: Hematologic/Lymphatic: Denies easy bleeding and Denies easy bruising Allergic/Immunologic: Allergic/Immunologic: Denies wheezing [facility], [facility] Medical History (HFpEF) heart failure with preserved ejection fraction CKD (chronic kidney disease) Pulmonary hypertension Atrial fibrillation Persistent atrial fibrillation CAD (coronary artery disease) Vitamin D deficiency HLD (hyperlipidemia) T2DM (type 2 diabetes mellitus) Acute exacerbation of congestive heart failure Hypertension Parkinson disease Hypothyroid Diabetes Functional capacity: independent ambulation Family History Father No problems noted. Mother T2DM (type 2 diabetes mellitus) Brother T2DM (type 2 diabetes mellitus) Surgical History Hx of cardiac cath (~01/2017) Hx of carpal tunnel repair Hx of knee surgery Hx of hysterectomy Social History Household Members: None Housing: House Do you presently have visiting nurse or other home services: No Alcohol intake: current Alcohol intake frequency: holidays/special occasions only Alcohol type: wine Patient Tobacco Use Status: Former Tobacco user Tobacco use type: Cigarette Smoked in Last 30 Days: No Use of substances other than those prescribed or required for medical reasons: No Advance Directives: Yes Advance Directives on File: Yes Advance Directives Date on File: 03/22/20 Do you have a plan to hurt others: No Plan service: No Current occupational status: retired Narrative: no smoking, etoh 3-4x/month Meds Allergies Allergy/AdvReac Type Severity Reaction Status Date / Time baclofen AdvReac Unknown CONFUSION, Verified 06/19/24 13:51 OUT OF IT oxycodone [From Percocet] AdvReac Unknown NAUSEA Verified 06/19/24 13:51 Home Medications ?Medication ?Instructions ?Recorded ?Confirmed ?Last Taken ?Type alprazolam 1 mg tablet 1 mg PO TID 03/19/20 06/06/24 10/03/23 History metoprolol tartrate 25 mg tablet 25 mg PO BID 03/19/20 06/06/24 10/03/23 History cyanocobalamin (vitamin B-12) 1,000 mcg IM Q28D 03/29/20 06/06/24 04/30/23 History 1,000 mcg/mL injection solution lancets #100 ea 04/18/20 05/05/24 04/30/23 History blood sugar diagnostic (Contour 02/18/21 05/05/24 04/30/23 History Next Test Strips) 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 meter (Contour Next 02/18/21 05/05/24 04/30/23 History One Meter) paroxetine HCl 40 mg tablet 40 mg PO DAILY 06/17/22 06/06/24 10/03/23 History ferrous sulfate 325 mg (65 mg 325 mg PO DAILY 10/04/23 06/06/24 Unknown History iron) tablet carbidopa 25 mg-levodopa 100 mg 1 tab PO TID 10/20/23 06/06/24 Unknown History tablet furosemide 20 mg tablet (Lasix) 40 mg PO DAILY 11/03/23 06/06/24 Unknown History insulin degludec 100 unit/mL (3 46 unit subcut DAILY 05/04/24 06/06/24 Unknown History mL) subcutaneous pen (Tresiba FlexTouch U-100 insulin) Physical Exam Vital Signs and Narrative: Vital Signs: Last Vital Signs Temp 97.6 F 06/19/24 13:42 Pulse 61 06/19/24 18:41 Resp 18 06/19/24 18:41 BP 121/59 L 06/19/24 18:41 Pulse Ox 96 06/19/24 18:41 O2 Del Method Nasal Cannula 06/19/24 18:41 O2 Flow Rate 2 06/19/24 18:41 BMI result Body Mass Index 29.3 General: AOx3, no acute distress, seen with daughter bedside Resp: CTA bilaterally CVS: S1, S2, RRR GI: slightly hypoactive bowel sounds, mild tenderness RLQ with deep palpation. no pain in LLQ or suprapubic region, no distention Skin: Warm, dry Neuro: Cranial nerves II-XII grossly intact bilaterally. Motor grossly intact bilaterally Extremities: No LE edema Psych: Appropriate affect Const: General: No confusion Orientation/consciousness: No confusion Eyes: Direct Ophthalmoscopy: No photophobia Neuro: General: No confusion Results Labs 06/19/24 14:04 06/19/24 14:04 Labs: Laboratory Results - last 24 hr 03/09/25 03/09/25 14:04 14:13 MCV 94.9 MCH 31.4 MCHC 33.1 RDW 13.2 Plt Count 174 MPV 11.7 Immature Gran % (Auto) 0.6 H Neut % (Auto) 74.0 H Lymph % (Auto) 14.5 L Mccracken % (Auto) 8.4 Eos % (Auto) 1.8 Baso % (Auto) 0.7 Lymph # (Auto) 1.0 L Mccracken # (Auto) 0.6 Eos # (Auto) 0.1 Baso # (Auto) 0.1 Abs Immat Gran (auto) 0.04 H Absolute Neuts (auto) 5.2 Absolute Nucleated RBC 0.000 Nucleated RBC % (auto) 0.0 PT 16.7 H INR 1.4 H VBG pH 7.41 VBG pCO2 47 VBG pO2 69 VBG HCO3 30 H VBG O2 Saturation 95.0 VBG Base Excess 4.8 Anion Gap 15 Estim Creat Clear Calc 41.6 Estimated GFR 51 Random Glucose 209 H Lactic Acid 1.5 Calcium 9.9 Magnesium 1.9 Total Bilirubin 1.3 H Direct Bilirubin 0.4 AST 36 H ALT 17 Alkaline Phosphatase 140 H Total Protein 7.6 Albumin 4.2 Lipase 14 Influenza Type A (PCR) NEGATIVE Influenza Type B (PCR) NEGATIVE RSV RNA Qual (PCR) NEGATIVE SARS-CoV-2 RNA (RT-PCR) NEGATIVE Assessment and Plan (1) Abdominal pain: Qualifiers: Abdominal location: right lower quadrant Qualified Code(s): R10.31 - Right lower quadrant pain Status: Acute Plan Patient is a 79-year-old female with a past medical history significant for acute appendicitis treated with antibiotics in April of 2023, hypothyroid, HFpEF, CKD, AFib on Eliquis, HLD, CAD, type 2 diabetes, Parkinson's, p.r.n. oxygen at home for unknown reason, who presented to the ED today due to 10/10 right lower quadrant pain starting this morning. abd pain, hx appendicitis tx'd with abx with similar presenstation - WBC normal, vitals normal, lactic acid normal, no sepsis or sign of infection - A/P CT negative for acute findings. fatty liver, moderate pancreatic atrophy. no gallstones - AST slightly elevated, likely fatty liver. alk phos slightly elevated, likely age related. - received fentanyl by EMS, Dilaudid 0.5mg here, zofran and started on zosyn. continue zosyn. - pain has resolved, however, surgery suggested admission for observation and surgery/GI consult - surgery/GI consult as above - NPO after midnight - monitor CBC and BMP hypothyroid - continue levothyroxine HFpEF - continue home meds a fib - continue rate control, hold eliquis in the event of ppossible surgery - EKG with a fib, rate controlled, slow ventricular response CKD - at baseline HLD/CAD - continue statin T2DM - sliding scale insulin - hold long acting insulin due to possibility of surgery and NPO status. resume regular dose when appropriate (Lantus 32U, usually takes Tresiba 46U QAM) - hold jardiance Parkinson's - continue home meds ?COPD/asthma, no acute exacerbation, at baseline - no SOB or wheezing - continue PRN O2 full code VTE prophy: pneumoboots Patient with acute right lower quadrant abdominal pain with a history of appendicitis with similar presentation requiring admission for observation, IV abx, and surgical/gastroenterology consultation tomorrow. Quality Stroke Does the patient have a stroke diagnosis?: No VTE Prior VTE?: No VTE Risk Level:: Medical - moderate - high VTE Device Contraindication: N/A - Device Ordered VTE Drug Contraindication: Treatment Not Indicated
[2024-06-19 20:37] LABS: Glucose, Whole Blood 73 mg/dL (60-115)
[2024-06-19 22:11] VITALS: BP 131/65; PULSE 63; RESP 16; O2SAT 95
--- NOTE | 2024-06-19 22:19 | PC.NURSE ---
Patient requesting her evening dose f Xanax, admitting provider Berta Hernandez messaged.
[2024-06-19] MEDS: Acetaminophen 325 MG TABLET 975 MG PO (22:36)
[2024-06-19] MEDS: ALPRAZolam 0.5 MG TABLET 1 MG PO (22:36)
[2024-06-19] MEDS: Carbidopa/Levodopa 25/100 TABLET 1 TAB PO (22:36)
[2024-06-19] MEDS: Metoprolol Tartrate 25 MG TABLET PO (22:36)
[2024-06-20] VITALS (10 sets, daily range): BP systolic 90–122; BP diastolic 47–92; PULSE 55–84; RESP 16–19; TEMP 36.1–36.5; O2SAT 85–97
[2024-06-20] MEDS: 0.9 % Sodium Chloride Flush 3 ML SYRINGE IVFLUSH ×2 (01:03→17:02)
[2024-06-20] MEDS: Piperacillin Sodium/Tazobactam 3.375 GM in 0.9 % Sodium Chloride 50 ML IV (04:14)
[2024-06-20 06:16] LABS: Glucose, Whole Blood 65 mg/dL (60-115)
[2024-06-20 07:07] LABS: MANUAL DIFF FLAG NO
[2024-06-20 07:25] LABS: Basophils Absolute Auto 0.1 X10*3/uL (0.0-0.2); Basophils Percent Auto 0.6 % (0-2); Eosinophils Absolute Auto 0.1 X10*3/uL (0.0-0.4); Eosinophils Percent Auto 0.7 % (0-4); Hematocrit 50.7 % (37.0-47.0); Hemoglobin 16.3 g/dl (12.0-16.0); Imm Gran Abs Auto 0.04 X10*3/uL (0.00-0.03); Imm Gran Pct Auto 0.4 % (0.0-0.4); Lymphocytes Absolute Auto 0.9 X10*3/uL (1.2-4.9); Mean Corpuscular HGB Conc 32.1 g/dl (31.0-35.0); Mean Corpuscular Hemoglobin 30.8 pg (27.0-33.0); Mean Corpuscular Volume 95.8 fL (80.0-98.0); Mean Platelet Volume 11.6 fL (9.4-12.3); Monocytes Absolute Auto 0.8 X10*3/uL (0.1-1.2); Monocytes Percent Auto 9.1 % (2-11); Neutrophils Absolute Auto 7.1 x10*3/uL (2.0-8.3); Neutrophils Percent Auto 79.2 % (45-73); Platelet Count 164 X10*3/uL (160-400); Red Blood Count 5.29 X10*6/uL (4.20-5.50); Red Cell Distribution Width 13.3 % (11.0-16.0)
[2024-06-20 07:27] LABS: Alanine Aminotransferase 11 U/L (0-31); Albumin Level 3.8 g/dL (3.5-5.0); Alkaline Phosphatase 109 U/L (39-117); Anion Gap 15 (12-20); Aspartate Amino Transferase 31 U/L (5-31); Bilirubin Total 0.9 mg/dL (0.0-1.0); Blood Urea Nitrogen 15 mg/dL (9-16); Calcium 9.2 mg/dL (8.4-10.2); Carbon Dioxide 28 mmol/L (22-29); Chloride 104 mmol/L (96-108); Creatinine Clr Calc Pharmacy 40.8; Estimated Glomerular Filt Rate 50; Glucose Random 81 mg/dL (60-115); Potassium 3.6 mmol/L (3.3-5.1); Sodium 143 mmol/L (135-145); Total Protein 6.8 g/dL (6.5-8.0)
[2024-06-20 07:34] LABS: Glucose, Whole Blood 116 mg/dL (60-115)
--- NOTE | 2024-06-20 08:14 | PC.NURSE ---
pt noted to be hypoxic when obtaining vitals. pt reports she wears 2L via NC at bedtime but is unsure as to why. attempted to place pt on RA - pt noted to desat to 85%. no sob/wob noted. respirations even/unlabored. pt eventually titrated to 6L via NC w/ good effect. oxygen tank on bed switched/pt placed back on 2L via NC. pt seems to be tolerating transition well. SPO2 94% on 2L via NC. otherwise pt slightly hypotensive/bradycardic. per dr. oconnor, pt no longer NPO at this time. pt had general surgery consult completed but no updates on notes in chart at this time. pt currently pending bed assignment. plan of care ongoing.
--- NOTE | 2024-06-20 08:32 | P.CONGS_ITS ---
History of Present Illness Consult details Consult date: 06/20/24 Narrative: Patient was a 71-year-old female who presents here with a proximally 1 day history of progressively worsening right lower quadrant pain. She states she had a similar episode approximately a year ago at were required hospitalization but no surgical intervention. This bowel similarly was acute in onset and persistent. She had some nausea but no vomiting. She had no loose stools or diarrhea. She denies any unusual diet, sick contacts, new meds, or recent foreign travel. Patient normally has regular bowel habits. Patient was states she has not had a colonoscopy for many years. She recall when the last 1 was. She does not have any bright red blood or dark stool. No change in stool caliber. Patient does have a significant drinking history from years ago. Chart was reviewed and patient evaluated. CT scan within normal limits. Liver changes seen last year. White count normal. H&H stable. [facility] Past Medical History Medical History (HFpEF) heart failure with preserved ejection fraction CKD (chronic kidney disease) Pulmonary hypertension Atrial fibrillation Persistent atrial fibrillation CAD (coronary artery disease) Vitamin D deficiency HLD (hyperlipidemia) T2DM (type 2 diabetes mellitus) Acute exacerbation of congestive heart failure Hypertension Parkinson disease Hypothyroid Diabetes Family History Family History Father No problems noted. Mother T2DM (type 2 diabetes mellitus) Brother T2DM (type 2 diabetes mellitus) Surgical History Surgical History Hx of cardiac cath (~01/2017) Hx of carpal tunnel repair Hx of knee surgery Hx of hysterectomy Social History Social History Household Members: None Housing: Condominium Do you presently have visiting nurse or other home services: No Alcohol intake: current Alcohol intake frequency: holidays/special occasions only Alcohol type: wine Patient Tobacco Use Status: Former Tobacco user Tobacco use type: Cigarette Smoked in Last 30 Days: No Patient Given Instructions on How to Stop Smoking: No Second Hand Smoke Exposure: No Use of substances other than those prescribed or required for medical reasons: No Currently Displaying Signs/Symptoms of Drug Intoxication Withdrawal: No Any prior treatment program specific to substance use: No Have you been hit, kicked, punched, or otherwise hurt by someone within the past year? If so, by whom?: No Do you feel safe in your current relationship?: No Current Relationship Is there a partner from a previous relationship who is making you feel unsafe now?: No Are you made to feel afraid or neglected: No Spiritual Healthcare Practices: none Advance Directives: Yes Advance Directives on File: Yes Advance Directives Date on File: 03/22/20 Do you have a plan to hurt others: No Plan Recently lost weight without trying: Yes How much weight loss: 2-13 pounds Eating poorly because of decreased appetite: No Nutrition screen score: 3 Nutrition Risks: Difficulty chewing Patient : No : No Poor oral hygiene: No service: No Current occupational status: retired Meds Allergies Allergy/AdvReac Type Severity Reaction Status Date / Time baclofen AdvReac Unknown CONFUSION, Verified 06/19/24 13:51 OUT OF IT oxycodone [From Percocet] AdvReac Unknown NAUSEA Verified 06/19/24 13:51 Active Medications: Current Medications Acetaminophen (Acetaminophen 325 Mg Tablet) 975 mg PO Q6H PRN PRN Reason: Pain, Mild 1-3,fever,headache Last Admin: 06/19/24 22:36 Dose: 975 mg Calcium Carbonate (Calcium Carbonate 750 Mg Tab.Chew) 750 mg PO Q4H PRN PRN Reason: Heartburn Dextrose (Dextrose 50 % 25 Gm/50 Ml Syringe) 25 gm IVPUSH Q15M PRN; Protocol PRN Reason: per Hypoglycemia Standing Ord. Glucose (Glucose Gel 15 Gm Gel..Gram.) 15 gm PO Q15M PRN; Protocol PRN Reason: per Hypoglycemia Standing Ord. Hydromorphone HCl (Hydromorphone Hcl 0.5 Mg/0.5 Ml Syringe) 0.5 mg IVPUSH Q4H PRN; Protocol PRN Reason: Pain, Severe (Pain Scale 7-10) Piperacillin Sod/Tazobactam (Sod 3.375 gm/ Sodium Chloride) 50 mls @ 100 mls/hr IV Q6H [facility] Last Infusion: 06/20/24 05:08 Dose: Infused Insulin Human Lispro (Insulin Lispro 100 Unit/Ml 3 Ml Vial) 0 unit SUBCUT QIDACHS [facility]; Protocol Last Admin: 06/20/24 07:36 Dose: Not Given Magnesium Hydroxide (Milk Of Magnesia 30 Ml Oral.Susp) 30 ml PO DAILY PRN PRN Reason: Constipation Melatonin (Melatonin 3 Mg Tablet) 6 mg PO BEDTIME PRN PRN Reason: Insomnia Morphine Sulfate (Morphine Sulfate 4 Mg/Ml Cartridge) 2 mg IVPUSH Q4H PRN; Protocol PRN Reason: Pain, Moderate(Pain Scale 4-6) Ondansetron HCl (Ondansetron Hcl 4 Mg/2 Ml Vial) 4 mg IVPUSH Q8H PRN PRN Reason: Nausea and Vomiting Polyethylene Glycol (Polyethylene Glycol 3350 17 Gm Powd.Pack) 17 gm PO DAILY PRN PRN Reason: Constipation Sodium Chloride (0.9 % Sodium Chloride Flush 3 Ml Syringe) 3 ml IVFLUSH [facility] Last Admin: 06/20/24 07:36 Dose: Not Given Home Medications ?Medication ?Instructions ?Recorded ?Confirmed ?Last Taken ?Type alprazolam 1 mg tablet 1 mg PO TID 03/19/20 06/20/24 06/19/24 History metoprolol tartrate 25 mg tablet 25 mg PO BID 03/19/20 06/20/24 06/19/24 History cyanocobalamin (vitamin B-12) 1,000 mcg IM Q28D 03/29/20 06/20/24 06/19/24 History 1,000 mcg/mL injection solution lancets #100 ea 04/18/20 05/05/24 04/30/23 History blood sugar diagnostic (Contour 02/18/21 05/05/24 04/30/23 History Next Test Strips) 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 meter ([facility] Next 02/18/21 05/05/24 04/30/23 History One Meter) paroxetine HCl 40 mg tablet 40 mg PO DAILY 06/17/22 06/20/24 06/19/24 History ferrous sulfate 325 mg (65 mg 325 mg PO DAILY 10/04/23 06/20/24 06/19/24 History iron) tablet carbidopa 25 mg-levodopa 100 mg 1 tab PO TID 10/20/23 06/20/24 06/19/24 History tablet furosemide 20 mg tablet (Lasix) 40 mg PO DAILY 11/03/23 06/20/24 06/19/24 History insulin degludec 100 unit/mL (3 46 unit subcut DAILY 05/04/24 06/20/24 06/19/24 History mL) subcutaneous pen (Tresiba FlexTouch U-100 insulin) levothyroxine 137 mcg tablet 137 mcg PO DAILY@0600 06/20/24 06/20/24 06/19/24 History Physical Exam 2 Vital Signs: Vital Signs: Last Vital Signs Temp 97.5 F 06/20/24 08:10 Pulse 55 06/20/24 08:10 Resp 16 06/20/24 08:10 BP 90/47 L 06/20/24 08:10 Pulse Ox 95 06/20/24 08:13 O2 Del Method Nasal Cannula 06/20/24 08:13 O2 Flow Rate 2 06/20/24 08:13 BMI result Body Mass Index 29.3 Const: Other: Patient in the ER whole awaiting inpatient bed. No acute distress. Very conversant. GI: Other: Abdomen moderately corpulent, soft. Mild right lower quadrant tenderness but no evidence of any guarding, rebound, or rigidity. Results Labs 06/20/24 06:54 06/20/24 06:54 Labs: Abnormal lab results 06/19/24 06/19/24 06/19/24 Range/Units 14:04 14:13 16:05 Hgb 17.2 H (12.0-16.0) g/dl Hct 52.0 H (37.0-47.0) % Immature Gran % (Auto) 0.6 H (0.0-0.4) % Neut % (Auto) 74.0 H (45-73) % Lymph % (Auto) 14.5 L (20-40) % Lymph # (Auto) 1.0 L (1.2-4.9) X10*3/uL Abs Immat Gran (auto) 0.04 H (0.00-0.03) X10*3/uL PT 16.7 H (10.9-12.4) SEC INR 1.4 H (0.9-1.1) VBG HCO3 30 H (22-26) mmol/L Carbon Dioxide 30 H (22-29) mmol/L BUN 18 H (9-16) mg/dL POC Glucose (60-115) mg/dL Random Glucose 209 H (60-115) mg/dL Total Bilirubin 1.3 H (0.0-1.0) mg/dL AST 36 H (5-31) U/L Alkaline Phosphatase 140 H (39-117) U/L Troponin I High Sens 55.5 H* D 47.2 H (<3.5-17.0) ng/L 06/20/24 06/20/24 Range/Units 06:54 07:30 Hgb 16.3 H (12.0-16.0) g/dl Hct 50.7 H (37.0-47.0) % Immature Gran % (Auto) (0.0-0.4) % Neut % (Auto) 79.2 H (45-73) % Lymph % (Auto) 10.0 L (20-40) % Lymph # (Auto) 0.9 L (1.2-4.9) X10*3/uL Abs Immat Gran (auto) 0.04 H (0.00-0.03) X10*3/uL PT (10.9-12.4) SEC INR (0.9-1.1) VBG HCO3 (22-26) mmol/L Carbon Dioxide (22-29) mmol/L BUN (9-16) mg/dL POC Glucose 116 H (60-115) mg/dL Random Glucose (60-115) mg/dL Total Bilirubin (0.0-1.0) mg/dL AST (5-31) U/L Alkaline Phosphatase (39-117) U/L Troponin I High Sens (<3.5-17.0) ng/L Short CBC 06/19/24 06/20/24 Range/Units 14:04 06:54 WBC 7.0 9.0 (4.8-10.8) X10*3/uL Hgb 17.2 H 16.3 H (12.0-16.0) g/dl Hct 52.0 H 50.7 H (37.0-47.0) % Plt Count 174 164 (160-400) X10*3/uL BMP 06/19/24 06/20/24 14:04 06:54 Sodium 142 143 Potassium 3.8 3.6 Chloride 101 104 Carbon Dioxide 30 H 28 BUN 18 H 15 Creatinine 1.04 1.06 Calcium 9.9 9.2 D Liver Function 03/09/25 03/10/25 Range/Units 14:04 06:54 Total Bilirubin 1.3 H 0.9 (0.0-1.0) mg/dL Direct Bilirubin 0.4 (0.0-0.5) mg/dL AST 36 H 31 (5-31) U/L ALT 17 11 (0-31) U/L Alkaline Phosphatase 140 H 109 (39-117) U/L Albumin 4.2 3.8 (3.5-5.0) g/dL All other labs normal. Assessment and Plan (1) Right lower quadrant abdominal pain: Status: Acute Plan At present, no acute surgical issues. Patient was also has a GI consult pending. Procedures Date of Service Date of Service: 06/20/24
--- NOTE | 2024-06-20 08:49 | P.PNIM_ITS ---
Subjective Subjective Date of Service: 06/20/24 Interval History: No abdominal pain at this time O2 dropping signficantly wihtout O2, she says she uses Oxygen at night only Physical Exam 2 Vital Signs: Vital Signs: Last Vital Signs Temp 97.5 F 06/20/24 08:10 Pulse 55 06/20/24 08:10 Resp 16 06/20/24 08:10 BP 90/47 L 06/20/24 08:10 Pulse Ox 95 06/20/24 08:13 O2 Del Method Nasal Cannula 06/20/24 08:13 O2 Flow Rate 2 06/20/24 08:13 BMI result Body Mass Index 29.3 Const: Other: General: AO X 3, no acute distress Resp: CTA bilateral CVS: S1,S2,RRR GI: +BS, NT, no distention Skin: No rash Neuro: motor grossly intact Psych: appropriate affect Objective Data Active Medications Acetaminophen (Acetaminophen 325 Mg Tablet) 975 mg PO Q6H PRN PRN Reason: Pain, Mild 1-3,fever,headache Last Admin: 06/19/24 22:36 Dose: 975 mg Documented By: JARAD Calcium Carbonate (Calcium Carbonate 750 Mg Tab.Chew) 750 mg PO Q4H PRN PRN Reason: Heartburn Dextrose (Dextrose 50 % 25 Gm/50 Ml Syringe) 25 gm IVPUSH Q15M PRN; Protocol PRN Reason: per Hypoglycemia Standing Ord. Glucose (Glucose Gel 15 Gm Gel..Gram.) 15 gm PO Q15M PRN; Protocol PRN Reason: per Hypoglycemia Standing Ord. Hydromorphone HCl (Hydromorphone Hcl 0.5 Mg/0.5 Ml Syringe) 0.5 mg IVPUSH Q4H PRN; Protocol PRN Reason: Pain, Severe (Pain Scale 7-10) Piperacillin Sod/Tazobactam (Sod 3.375 gm/ Sodium Chloride) 50 mls @ 100 mls/hr IV Q6H [facility] Last Infusion: 06/20/24 05:08 Dose: Infused Documented By: DEX Insulin Human Lispro (Insulin Lispro 100 Unit/Ml 3 Ml Vial) 0 unit SUBCUT QIDACHS [facility]; Protocol Last Admin: 06/20/24 07:36 Dose: Not Given Documented By: PRETTY Non-Admin Reason: No Insulin Coverage Magnesium Hydroxide (Milk Of Magnesia 30 Ml Oral.Susp) 30 ml PO DAILY PRN PRN Reason: Constipation Melatonin (Melatonin 3 Mg Tablet) 6 mg PO BEDTIME PRN PRN Reason: Insomnia Morphine Sulfate (Morphine Sulfate 4 Mg/Ml Cartridge) 2 mg IVPUSH Q4H PRN; Protocol PRN Reason: Pain, Moderate(Pain Scale 4-6) Ondansetron HCl (Ondansetron Hcl 4 Mg/2 Ml Vial) 4 mg IVPUSH Q8H PRN PRN Reason: Nausea and Vomiting Polyethylene Glycol (Polyethylene Glycol 3350 17 Gm Powd.Pack) 17 gm PO DAILY PRN PRN Reason: Constipation Sodium Chloride (0.9 % Sodium Chloride Flush 3 Ml Syringe) 3 ml IVFLUSH QSHIFT [facility] Last Admin: 06/20/24 07:36 Dose: Not Given Documented By: PRETTY Non-Admin Reason: Patient Asleep Labs 06/20/24 06:54 06/20/24 06:54 Labs: Laboratory Results - last 24 hr 06/19/24 06/19/24 06/19/24 14:04 14:13 20:33 MCV 94.9 MCH 31.4 MCHC 33.1 RDW 13.2 Plt Count 174 MPV 11.7 Immature Gran % (Auto) 0.6 H Neut % (Auto) 74.0 H Lymph % (Auto) 14.5 L [place] % (Auto) 8.4 Eos % (Auto) 1.8 Baso % (Auto) 0.7 Lymph # (Auto) 1.0 L [place] # (Auto) 0.6 Eos # (Auto) 0.1 Baso # (Auto) 0.1 Abs Immat Gran (auto) 0.04 H Absolute Neuts (auto) 5.2 Absolute Nucleated RBC 0.000 Nucleated RBC % (auto) 0.0 PT 16.7 H INR 1.4 H VBG pH 7.41 VBG pCO2 47 VBG pO2 69 VBG HCO3 30 H VBG O2 Saturation 95.0 VBG Base Excess 4.8 Anion Gap 15 Estim Creat Clear Calc 41.6 Estimated GFR 51 POC Glucose 73 Random Glucose 209 H Lactic Acid 1.5 Calcium 9.9 Magnesium 1.9 Total Bilirubin 1.3 H Direct Bilirubin 0.4 AST 36 H ALT 17 Alkaline Phosphatase 140 H Total Protein 7.6 Albumin 4.2 Lipase 14 Influenza Type A (PCR) NEGATIVE Influenza Type B (PCR) NEGATIVE RSV RNA Qual (PCR) NEGATIVE SARS-CoV-2 RNA (RT-PCR) NEGATIVE 06/20/24 06/20/24 06/20/24 06:02 06:54 07:30 MCV 95.8 MCH 30.8 MCHC 32.1 RDW 13.3 Plt Count 164 MPV 11.6 Immature Gran % (Auto) 0.4 Neut % (Auto) 79.2 H Lymph % (Auto) 10.0 L [place] % (Auto) 9.1 Eos % (Auto) 0.7 Baso % (Auto) 0.6 Lymph # (Auto) 0.9 L [place] # (Auto) 0.8 Eos # (Auto) 0.1 Baso # (Auto) 0.1 Abs Immat Gran (auto) 0.04 H Absolute Neuts (auto) 7.1 Absolute Nucleated RBC 0.000 Nucleated RBC % (auto) 0.0 PT INR VBG pH VBG pCO2 VBG pO2 VBG HCO3 VBG O2 Saturation VBG Base Excess Anion Gap 15 Estim Creat Clear Calc 40.8 Estimated GFR 50 POC Glucose 65 116 H Random Glucose 81 Lactic Acid Calcium 9.2 D Magnesium Total Bilirubin 0.9 Direct Bilirubin AST 31 ALT 11 Alkaline Phosphatase 109 Total Protein 6.8 Albumin 3.8 Lipase Influenza Type A (PCR) Influenza Type B (PCR) RSV RNA Qual (PCR) SARS-CoV-2 RNA (RT-PCR) Assessment and Plan (1) Hypoxemia: Status: Resolved Plan Patient is a 79-year-old female with a past medical history significant for acute appendicitis treated with antibiotics in April of 2023, hypothyroid, HFpEF, CKD, AFib on Eliquis, HLD, CAD, type 2 diabetes, Parkinson's, p.r.n. oxygen at home for unknown reason, who presented to the ED today due to 10/10 right lower quadrant pain starting this morning. Abdominal pain, CT no acute finding, pain improved with pain meds. see by surgery no acute surgical issues awaiting gi eval advance diet. dc zosyn, no indication for Abx Acute on chronic hypoxic respiratory desating into low 80s without O2 She says on O2 at night only similar presentation has hospitalization likely underlying copd home O2 eval, probably needs O2 at all times hypothyroid continue levothyroxine HFpEF, euvolemic continue home meds a fib rate controlled resume magdalenaqudebbie CKD at baseline HLD/CAD continue statin T2DM sliding scale hold oral meds Parkinson's - continue home meds full code VTE prophy: pneumoboots Patient with acute right lower quadrant abdominal pain with a history of appendicitis with similar presentation requiring admission for observation, IV abx, and surgical/gastroenterology consultation tomorrow. Quality Stroke Does the patient have a stroke diagnosis?: No VTE Prior VTE?: No VTE Risk Level:: Medical - moderate - high VTE Device Contraindication: N/A - Device Ordered VTE Drug Contraindication: Treatment Not Indicated
--- NOTE | 2024-06-20 09:26 | PHA.MEDREC ---
Addendum entered by Curtis Burks RPh 06/20/24 09:47: Reviewed by [facility] Original Note: Pharmacy Consult ? Medication Reconciliation Pharmacy has completed the medication reconciliation. Spoke to patient to confirm med list. Patient states she is no longer taking Albuterol HFA inhaler, Vitmamin D3 50 mcg, and Cyclobenzaprine 10 mg. Patient confirmed Tresiba 46 units daily, Vitamin B-12 1,000 mcg injection , last dose was 06/15/24.
[2024-06-20] MEDS: ALPRAZolam 0.5 MG TABLET 1 MG PO ×3 (10:46→21:17)
[2024-06-20] MEDS: Metoprolol Tartrate 25 MG TABLET PO (10:46)
[2024-06-20] MEDS: Carbidopa/Levodopa 25/100 TABLET 1 TAB PO ×3 (10:46→19:54)
[2024-06-20] MEDS: PARoxetine HCL 40 MG TABLET PO (10:46)
[2024-06-20] MEDS: Furosemide 40 MG TABLET PO (10:47)
[2024-06-20] MEDS: Losartan Potassium 50 MG TABLET PO (10:47)
[2024-06-20] MEDS: Ferrous Sulfate 324 MG TABLET.DR PO (10:47)
[2024-06-20] MEDS: Apixaban 5 MG TABLET PO ×2 (10:47→19:53)
--- NOTE | 2024-06-20 11:09 | PM.GICN ---
History of Present Illness Data of Consult Service Date: 06/20/24 Requesting physician: Berta Hernandez Primary Care Provider: Reji Molina MD HPI Reason for consult: RLQ pain 79-year-old female with PMH of AFib on Eliquis, HLD, CAD, type 2 diabetes, HFpEF, CKD, who presented to the ER for sudden onset of RLQ pain on 06/19. Pt seen at bedside. Reports that had a similar episode last year in April. At that time was managed conservatively for likely acute appendicitis with ABx. Pain did not recur until the morning of 06/19 when it woke her up from sleep. Pain primarily in RLQ and radiates to her lower back. Assoc with chills, anorexia and nausea. No documented fevers. Normal vitals in ER on arrival. CT abd without inflammed appendix. Unchanged fatty liver. At the time of assessment, pt reports improvement of RLQ pain. Was started on CLD which she is tolerating without any difficulty. Last colo 2000 (Dr Hoang) - no polyps. Bx neg for microscopic colitis. Review of Systems Review of Systems: Yes all other systems are reviewed and are negative PMFSH Past Medical History Medical History (HFpEF) heart failure with preserved ejection fraction CKD (chronic kidney disease) Pulmonary hypertension Atrial fibrillation Persistent atrial fibrillation CAD (coronary artery disease) Vitamin D deficiency HLD (hyperlipidemia) T2DM (type 2 diabetes mellitus) Acute exacerbation of congestive heart failure Hypertension Parkinson disease Hypothyroid Diabetes Family History Family History Father No problems noted. Mother T2DM (type 2 diabetes mellitus) Brother T2DM (type 2 diabetes mellitus) Surgical History Surgical History Hx of cardiac cath (~01/2017) Hx of carpal tunnel repair Hx of knee surgery Hx of hysterectomy Social History Social History Household Members: None Housing: Condominium Do you presently have visiting nurse or other home services: No Alcohol intake: current Alcohol intake frequency: holidays/special occasions only Alcohol type: wine Patient Tobacco Use Status: Former Tobacco user Tobacco use type: Cigarette Smoked in Last 30 Days: No Patient Given Instructions on How to Stop Smoking: No Second Hand Smoke Exposure: No Use of substances other than those prescribed or required for medical reasons: No Currently Displaying Signs/Symptoms of Drug Intoxication Withdrawal: No Any prior treatment program specific to substance use: No Have you been hit, kicked, punched, or otherwise hurt by someone within the past year? If so, by whom?: No Do you feel safe in your current relationship?: No Current Relationship Is there a partner from a previous relationship who is making you feel unsafe now?: No Are you made to feel afraid or neglected: No Spiritual Healthcare Practices: none Advance Directives: Yes Advance Directives on File: Yes Advance Directives Date on File: 03/22/20 Do you have a plan to hurt others: No Plan Recently lost weight without trying: Yes How much weight loss: 2-13 pounds Eating poorly because of decreased appetite: No Nutrition screen score: 3 Nutrition Risks: Difficulty chewing Patient : No : No Poor oral hygiene: No service: No Current occupational status: retired [employer] Allergies Allergy/AdvReac Type Severity Reaction Status Date / Time baclofen AdvReac Unknown CONFUSION, Verified 06/19/24 13:51 OUT OF IT oxycodone [From Percocet] AdvReac Unknown NAUSEA Verified 06/19/24 13:51 Active Medications: Current Medications Acetaminophen (Acetaminophen 325 Mg Tablet) 975 mg PO Q6H PRN PRN Reason: Pain, Mild 1-3,fever,headache Last Admin: 06/19/24 22:36 Dose: 975 mg Alprazolam (Alprazolam 0.5 Mg Tablet) 1 mg PO TID [facility] Last Admin: 06/20/24 10:46 Dose: 1 mg Apixaban (Apixaban 5 Mg Tablet) 5 mg PO BID [facility] Last Admin: 06/20/24 10:47 Dose: 5 mg Atorvastatin Calcium (Atorvastatin Calcium 40 Mg Tablet) 40 mg PO BEDTIME [facility] Calcium Carbonate (Calcium Carbonate 750 Mg Tab.Chew) 750 mg PO Q4H PRN PRN Reason: Heartburn Carbidopa/Levodopa (Carbidopa/Levodopa 25/100 Tablet) 1 tab PO TID [facility] Last Admin: 06/20/24 10:46 Dose: 1 tab Dextrose (Dextrose 50 % 25 Gm/50 Ml Syringe) 25 gm IVPUSH Q15M PRN; Protocol PRN Reason: per Hypoglycemia Standing Ord. Ferrous Sulfate (Ferrous Sulfate 324 Mg Tablet.Dr) 324 mg PO DAILY [facility] Last Admin: 06/20/24 10:47 Dose: 324 mg Furosemide (Furosemide 40 Mg Tablet) 40 mg PO DAILY [facility]; Protocol Last Admin: 06/20/24 10:47 Dose: 40 mg Glucose (Glucose Gel 15 Gm Gel..Gram.) 15 gm PO Q15M PRN; Protocol PRN Reason: per Hypoglycemia Standing Ord. Hydromorphone HCl (Hydromorphone Hcl 0.5 Mg/0.5 Ml Syringe) 0.5 mg IVPUSH Q4H PRN; Protocol PRN Reason: Pain, Severe (Pain Scale 7-10) Insulin Human Lispro (Insulin Lispro 100 Unit/Ml 3 Ml Vial) 0 unit SUBCUT QIDACHS [facility]; Protocol Last Admin: 06/20/24 07:36 Dose: Not Given Levothyroxine Sodium (Levothyroxine Sodium 112 Mcg Tablet) 112 mcg PO DAILY@0600 [facility] Levothyroxine Sodium (Levothyroxine Sodium 25 Mcg Tablet) 25 mcg PO DAILY@0600 [facility] Losartan Potassium (Losartan Potassium 50 Mg Tablet) 50 mg PO DAILY [facility]; Protocol Last Admin: 06/20/24 10:47 Dose: 50 mg Magnesium Hydroxide (Milk Of Magnesia 30 Ml Oral.Susp) 30 ml PO DAILY PRN PRN Reason: Constipation Melatonin (Melatonin 3 Mg Tablet) 6 mg PO BEDTIME PRN PRN Reason: Insomnia Metoprolol Tartrate (Metoprolol Tartrate 25 Mg Tablet) 25 mg PO BID [facility]; Protocol Last Admin: 06/20/24 10:46 Dose: 25 mg Morphine Sulfate (Morphine Sulfate 4 Mg/Ml Cartridge) 2 mg IVPUSH Q4H PRN; Protocol PRN Reason: Pain, Moderate(Pain Scale 4-6) Ondansetron HCl (Ondansetron Hcl 4 Mg/2 Ml Vial) 4 mg IVPUSH Q8H PRN PRN Reason: Nausea and Vomiting Paroxetine HCl (Paroxetine Hcl 40 Mg Tablet) 40 mg PO DAILY [facility] Last Admin: 06/20/24 10:46 Dose: 40 mg Polyethylene Glycol (Polyethylene Glycol 3350 17 Gm Powd.Pack) 17 gm PO DAILY PRN PRN Reason: Constipation Sodium Chloride (0.9 % Sodium Chloride Flush 3 Ml Syringe) 3 ml IVFLUSH QSHIFT [facility] Last Admin: 06/20/24 07:36 Dose: Not Given Home Medications ?Medication ?Instructions ?Recorded ?Confirmed ?Last Taken ?Type alprazolam 1 mg tablet 1 mg PO TID 03/19/20 06/20/24 06/19/24 History metoprolol tartrate 25 mg tablet 25 mg PO BID 03/19/20 06/20/24 06/19/24 History cyanocobalamin (vitamin B-12) 1,000 mcg IM Q28D 03/29/20 06/20/24 06/19/24 History 1,000 mcg/mL injection solution lancets #100 ea 04/18/20 05/05/24 04/30/23 History blood sugar diagnostic (Contour 02/18/21 05/05/24 04/30/23 History Next Test Strips) 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 meter (Contour Next 02/18/21 05/05/24 04/30/23 History One Meter) paroxetine HCl 40 mg tablet 40 mg PO DAILY 06/17/22 06/20/24 06/19/24 History ferrous sulfate 325 mg (65 mg 325 mg PO DAILY 10/04/23 06/20/24 06/19/24 History iron) tablet carbidopa 25 mg-levodopa 100 mg 1 tab PO TID 10/20/23 06/20/24 06/19/24 History tablet furosemide 20 mg tablet (Lasix) 40 mg PO DAILY 11/03/23 06/20/24 06/19/24 History insulin degludec 100 unit/mL (3 46 unit subcut DAILY 05/04/24 06/20/24 06/19/24 History mL) subcutaneous pen (Tresiba FlexTouch U-100 insulin) levothyroxine 137 mcg tablet 137 mcg PO DAILY@0600 06/20/24 06/20/24 06/19/24 History Physical Exam Vital Signs: Vital Signs: Last Vital Signs Temp 97.0 F 06/20/24 10:10 Pulse 61 06/20/24 10:10 Resp 18 06/20/24 10:10 BP 122/72 06/20/24 10:10 Pulse Ox 97 06/20/24 10:10 O2 Del Method Room Air 06/20/24 10:10 O2 Flow Rate 2 06/20/24 08:13 BMI result Body Mass Index 29.3 Elderly female NAD Nonicteric Mild RLQ tenderness, no guarding, no rebound No LILO Results Labs 06/20/24 06:54 06/20/24 06:54 Labs: Short CBC 06/19/24 06/20/24 Range/Units 14:04 06:54 WBC 7.0 9.0 (4.8-10.8) X10*3/uL Hgb 17.2 H 16.3 H (12.0-16.0) g/dl Hct 52.0 H 50.7 H (37.0-47.0) % Plt Count 174 164 (160-400) X10*3/uL BMP 06/19/24 06/20/24 14:04 06:54 Sodium 142 143 Potassium 3.8 3.6 Chloride 101 104 Carbon Dioxide 30 H 28 BUN 18 H 15 Creatinine 1.04 1.06 Calcium 9.9 9.2 D Liver Function 06/19/24 06/20/24 Range/Units 14:04 06:54 Total Bilirubin 1.3 H 0.9 (0.0-1.0) mg/dL Direct Bilirubin 0.4 (0.0-0.5) mg/dL AST 36 H 31 (5-31) U/L ALT 17 11 (0-31) U/L Alkaline Phosphatase 140 H 109 (39-117) U/L Albumin 4.2 3.8 (3.5-5.0) g/dL Assessment and Plan (1) Right lower quadrant abdominal pain: Status: Acute Plan At this time, the acute RLQ pain has resolved. Imaging and physical exam reassuring. Ddx include mild appendicitis vs yersian (pseudoappendicitis), meckel's diverticulitis. Again, contrasted imaging negative was negative. Plan: - Agree with advancing diet as tolerated - Consider GI panel if pt develops diarrhea - If pt with recurrence of RLQ pain, low threshold to obtain interval contrasted CT - If no recurrence of pain, no urgent intervention indicated from GI standpoint. Pt will then be advised outpatient follow up with her GI. Thank you for allowing me to participate in her care. Please do not hesitate to reach out for questions or concerns. Procedures Date of Service Date of Service: 06/20/24
[2024-06-20 12:10] LABS: Glucose, Whole Blood 183 mg/dL (60-115)
[2024-06-20] MEDS: Insulin Lispro 100 UNIT/ML 3 ML VIAL SUBCUT ×2 (12:18→21:17)
[2024-06-20 14:48] LABS: Appearance Urine Clear; Color Urine Yellow; Glucose Urine UA >=1000 mg/dL (Negative); Leukocyte Esterase Urine Negative (Negative); Nitrite Urine Negative (Negative); PH 6.5 (5.0-9.0); Specific Gravity - Urine 1.015 (1.005-1.025); UMIC TRIGGER UACC YES; Urine Blood Negative (Negative); Urine Ketones Negative (Negative); Urine Protein Negative (Neg-Trace)
[2024-06-20 14:51] LABS: Bacteria Urine None Seen (None Seen); Hyaline Casts Urine 0-2 /LPF (0-2); RBC Urine 0-2 /HPF (0-2); Squamous Epithelial Cell Urine 0-2 /HPF (0-2); WBC Urine 0-5 /HPF (0-5)
[2024-06-20 16:24] LABS: Glucose, Whole Blood 149 mg/dL (60-115)
[2024-06-20] MEDS: Atorvastatin Calcium 40 MG TABLET PO (19:53)
[2024-06-20 21:13] LABS: Glucose, Whole Blood 196 mg/dL (60-115)
[2024-06-21] MEDS: 0.9 % Sodium Chloride Flush 3 ML SYRINGE IVFLUSH (00:55)
[2024-06-21 03:19] VITALS: BP 115/71; PULSE 55; RESP 16; TEMP 36.3; O2SAT 95
[2024-06-21] MEDS: Levothyroxine Sodium 112 MCG TABLET PO (06:01)
[2024-06-21] MEDS: Levothyroxine Sodium 25 MCG TABLET PO (06:01)
[2024-06-21 07:33] LABS: Glucose, Whole Blood 100 mg/dL (60-115)
[2024-06-21 07:53] VITALS: BP 145/59; PULSE 57; RESP 18; TEMP 36.3; O2SAT 93
[2024-06-21] MEDS: Carbidopa/Levodopa 25/100 TABLET 1 TAB PO (09:07)
[2024-06-21] MEDS: Furosemide 40 MG TABLET PO (09:07)
[2024-06-21] MEDS: Losartan Potassium 50 MG TABLET PO (09:07)
[2024-06-21] MEDS: Ferrous Sulfate 324 MG TABLET.DR PO (09:07)
[2024-06-21] MEDS: ALPRAZolam 0.5 MG TABLET 1 MG PO (09:07)
[2024-06-21] MEDS: PARoxetine HCL 40 MG TABLET PO (09:07)
[2024-06-21] MEDS: Apixaban 5 MG TABLET PO (09:07)
[2024-06-21] MEDS: Metoprolol Tartrate 25 MG TABLET PO (09:07)
--- NOTE | 2024-06-21 11:01 | PM.DS ---
DS: Providers Provider Date of Service: 06/21/24 Date of admission: 06/20/24 09:03 Date of discharge: 06/21/24 Primary care physician: Reji Molina MD Consults: 06/19/24 20:50 Consult to Gastroenterology Routine Consulting Provider: Rosalba Anthony Reason for consultation: RLQ pain, negative CT Consult to General Surgery Routine Consulting Provider: [facility] Surgeons Reason for consultation: RLQ pain, hx appendicitis no surgery DS: Diagnosis Discharge Diagnosis (1) Right lower quadrant abdominal pain: Status: Acute DS: Summary Hospital Course Hospital Course: admission hpi Chief Complaint: RLQ pain Patient is a 79-year-old female with a past medical history significant for acute appendicitis treated with antibiotics in April of 2023, hypothyroid, HFpEF, CKD, AFib on Eliquis, HLD, CAD, type 2 diabetes, Parkinson's, p.r.n. oxygen at home for unknown reason, who presented to the ED today due to 10/10 right lower quadrant pain starting this morning. She reports that she had a normal bowel movement this morning and later had this pain, she reports that the pain has now subsided. She has had no further nausea or vomiting. She did report a tactile fever but no fever measured. The pain did radiate to her left lower quadrant which is again dissipated. She denies any urinary symptoms including frequency, dysuria or urgency. She has no additional symptoms but reports that she does have irritable bowel syndrome and has been followed by GI. Patient's case was discussed with the on-call surgeon by the ED provider who suggested admission for observation and surgical/GI consultation tomorrow morning. She was placed on Zosyn prophylactically, Eliquis held due to possibility of surgery although no acute appendicitis seen on CT scan Hospital course: The patient presented with abdominal pain, as described above. A CT scan showed no acute findings, and laboratory results were unremarkable. She was evaluated by both Surgery and Gastroenterology, with no indication for further testing or intervention at this time. Her diet has been advanced, and she is tolerating a regular diet without recurrence of pain. She expresses a desire to go home. The patient has been advised to return if the pain recurs. Time Attestation Discharge Coordination Time (in mins): 35 Quality: Safe Use of Opioids Does Pt have an Active Cancer Diagnosis on the Problem List?: No Quality: Stroke Does the patient have a stroke diagnosis?: No Physical Exam Vital Signs: Vital Signs: Last Vital Signs Temp 97.3 F 06/21/24 07:53 Pulse 57 06/21/24 07:53 Resp 18 06/21/24 07:53 BP 145/59 H 06/21/24 07:53 Pulse Ox 93 06/21/24 07:53 O2 Del Method Room Air 06/21/24 07:53 O2 Flow Rate 1 06/21/24 03:19 BMI result Body Mass Index 29.3 Const: Other: General: AO X 3, no acute distress Resp: CTA bilateral CVS: S1,S2,RRR GI: +BS, NT, no distention Skin: No rash Neuro: motor grossly intact Psych: appropriate affect DS: Data Data Completed and Pending Completed studies during hospitalization [Text1]: Procedures Assistance with Respiratory Ventilation, Less than 24 Consecutive Hours, Continuous Positive Airway Pressure (10/04/23) Labs on day of discharge: Laboratory Results - last 24 hr 06/20/24 06/20/24 06/20/24 12:07 14:23 16:11 POC Glucose 183 H 149 H Urine Color Yellow Urine Appearance Clear Urine pH 6.5 Ur Specific [place]don 1.015 Urine Protein Negative Urine Glucose (UA) >=1000 H Urine Ketones Negative Urine Blood Negative Urine Nitrite Negative Ur Leukocyte Esterase Negative Urine RBC 0-2 Urine WBC 0-5 Ur Squamous Epith Cells 0-2 Urine Bacteria None Seen Hyaline Casts 0-2 06/20/24 06/21/24 20:58 07:23 POC Glucose 196 H 100 Urine Color Urine Appearance Urine pH Ur Specific [place] Urine Protein Urine Glucose (UA) Urine Ketones Urine Blood Urine Nitrite Ur Leukocyte Esterase Urine RBC Urine WBC Ur Squamous Epith Cells Urine Bacteria Hyaline Casts Preliminary micro results at discharge 06/19/24 14:22 Blood Culture - Preliminary Blood - Venous No growth after 24 hours. 06/19/24 14:04 Blood Culture - Preliminary Blood - Venous No growth after 24 hours. Discharge Plan Discharge Anticipated Discharge Date/Time: 06/21/24 10:55 Patient Disposition: Home, Self-Care Discharge Diagnosis: Abdominal pain Referrals: Reji Molina MD [Primary Care Provider] - 1 Week Discharge Medications: Continued (DME) pen needle, diabetic 31 gauge x 3/16 needle See Rx Instructions subcut DIRECTED Qty: 100 11RF Rx Instructions: 4x daily atorvastatin 40 mg tablet 40 mg PO BEDTIME Qty: 30 0RF (DME) FreeStyle Sanjeev 3 Sensor Device See Rx Instructions .ROUTE .MEDSUPPLY Qty: 2 11RF Rx Instructions: As directed E11.8 (DME) FreeStyle Sanjeev 3 [place] [facility] [place] .ROUTE .MEDSUPPLY Qty: 1 0RF Rx Instructions: As directed E&M code 11.8 Eliquis 5 mg tablet 5 mg PO BID Qty: 180 3RF alprazolam 1 mg Tablet 1 mg PO TID metoprolol tartrate 25 mg Tablet 25 mg PO BID paroxetine HCl 40 mg tablet 40 mg PO DAILY ferrous sulfate 325 mg (65 mg iron) Tablet 325 mg PO DAILY Jardiance 10 mg Tablet 10 mg PO DAILY Qty: 60 0RF levothyroxine 137 mcg tablet 137 mcg PO DAILY@0600 (DME) lancets [facility] [place] .ROUTE TID Qty: 100 Rx Instructions: As directed cyanocobalamin (vitamin B-12) 1,000 mcg/mL solution 1,000 mcg IM Q28D Patient Comments: per patient and daughter, last injection was last week, they are unsure what day. (DME) Contour Next Test Strips Strip See Rx Instructions .Route Rx Instructions: As directed 3 times a day (DME) 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 meter [Contour Next One Meter] [facility] [place] .Route Rx Instructions: As directed Tresiba FlexTouch U-100 100 unit/mL (3 mL) insulin pen 46 unit subcut DAILY furosemide [Lasix] 20 mg tablet 40 mg PO DAILY carbidopa-levodopa 25-100 mg tablet 1 tab PO TID losartan 50 mg tablet 50 mg PO DAILY 90 Days Qty: 90 1RF Discharge Orders: Discharge Order (Routine); Ordered 06/21/24 Ordered By: Facundo Guillen Diet: Diabetic diet Activity on Discharge: As tolerated Stand Alone Forms: Patient Portal Discharge page Print Language: Estonian Care Plan Goals: recovery from abdominal pain Health Concerns: abdominal pain that has resolved Plan of Treatment: Your tests for abdominal pain, including the CT scan and lab work, were unremarkable. Your pain has resolved on its own. You were evaluated by both the GI doctor and the surgeon, and they do not recommend further testing at this time. You may resume all your medications and follow up with your doctor in a week. If your pain returns, further testing may be necessary. You may also resume a regular diet, with an emphasis on healthy foods. Assessment: see above Patient Instructions: Abdominal Pain (ED)
[2024-06-21 11:16] LABS: Glucose, Whole Blood 273 mg/dL (60-115)
--- NOTE | 2024-06-21 11:37 | MHC.CM.PN ---
IMM delivered. Patient lives in a senior housing apartment alone. Functionally independent. Denies use of DME or services. PCP Reji Molina MD HCP on file and verified. DP: Medically cleared for dc home self care. Daughter to transport.
== END 2024-06-21 12:02 | disposition home or self-care (01) | DRG 391 ==
LOC: HO.ED 18:49 → HO.EDOVER 20:59 → HO.S3 06-20 08:35
PROVIDERS: Emergency Medicine; Admitting Provider Physician Assistant; Emergency Provider Emergency Medicine Emergency Medical Services; PCP Internal Medicine; Visit Provider Internal Medicine
DX: R10.31 Right lower quadrant pain (principal); J96.21 Acute and chronic respiratory failure with hypoxia; I50.32 Chronic diastolic (congestive) heart failure; I25.10 Atherosclerotic heart disease of native coronary artery without angina pectoris; K76.0 Fatty (change of) liver, not elsewhere classified; E03.9 Hypothyroidism, unspecified; N18.9 Chronic kidney disease, unspecified; E11.22 Type 2 diabetes mellitus with diabetic chronic kidney disease; G20.A1 Parkinson's disease without dyskinesia, without mention of fluctuations; Z20.822 Contact with and (suspected) exposure to COVID-19; Z79.4 Long term (current) use of insulin; Z79.01 Long term (current) use of anticoagulants; Z79.890 Hormone replacement therapy; Z79.899 Other long term (current) drug therapy
CPT/HCPCS: 0241U; 36415; 74177; 80048; 80053; 80076; 81001; 82803; 82947; 83605; 83690; 83735; 84484; 85025; 85610; 87040; 93005; 99221; 99285; J1171; J2405; J2543; Q9967

== ENCOUNTER → 2024-06-19 13:40 | Outpatient (BNV) | payer MEDICARE, SELFPAY | PROVIDERS: Admitting Provider Physician Assistant; Emergency Provider Emergency Medicine Emergency Medical Services; PCP Internal Medicine; Visit Provider Internal Medicine | DX: I48.91 Unspecified atrial fibrillation (principal) | CPT/HCPCS: 93010 ==

== ENCOUNTER → 2024-06-19 13:40 | Outpatient (BNV) | payer MEDICARE, SELFPAY | PROVIDERS: Emergency Provider Emergency Medicine Emergency Medical Services; PCP Internal Medicine; Visit Provider Radiology Diagnostic Radiology | DX: R10.31 Right lower quadrant pain (principal) | CPT/HCPCS: 74177 ==

== ENCOUNTER → 2024-06-19 20:50 | Outpatient (BNV) | payer MEDICARE, SELFPAY | PROVIDERS: Admitting Provider Physician Assistant; Emergency Provider Emergency Medicine Emergency Medical Services; PCP Internal Medicine; Visit Provider Physician Assistant | DX: J96.21 Acute and chronic respiratory failure with hypoxia (principal); R10.31 Right lower quadrant pain | CPT/HCPCS: 99223; 99232; 99239 ==

== ENCOUNTER → 2024-06-20 09:03 | Outpatient (BNV) | payer MEDICARE, SELFPAY | PROVIDERS: Admitting Provider Physician Assistant; Emergency Provider Emergency Medicine Emergency Medical Services; PCP Internal Medicine; Visit Provider Surgery | DX: R10.31 Right lower quadrant pain (principal) | CPT/HCPCS: 99222 ==

== ENCOUNTER → 2024-06-20 09:03 | Outpatient (BNV) | payer MEDICARE, SELFPAY | PROVIDERS: Admitting Provider Physician Assistant; Emergency Provider Emergency Medicine Emergency Medical Services; PCP Internal Medicine; Visit Provider Internal Medicine | DX: R10.31 Right lower quadrant pain (principal) | CPT/HCPCS: 99222 ==

== ENCOUNTER 2024-06-28 13:57 | Outpatient (AMB) | payer MEDICARE, SELFPAY ==
--- NOTE | 2024-06-28 13:58 | A.OFFVIS_ITS ---
Vital Signs 06/28/24 13:59 Height 5 ft 2 in Weight 160 lb 14.999 oz BMI 29.4 BP 120/72 Blood Pressure Location Lt brachial Position Sitting Pulse Oximetry (%) 88 L Intake Visit Reasons: 6 mth f/up w/ NS Intake Note: 6 month follow-up feeling good Tangible Personal Property Appraiser Required: No Allergies baclofen Adverse Reaction (Unknown, Verified 06/19/24 13:51) CONFUSION, OUT OF IT oxycodone [From Percocet] Adverse Reaction (Unknown, Verified 06/19/24 13:51) NAUSEA Medication List - Last Reconciled 06/28/24 by Shaun Saleh MD alprazolam 1 mg PO TID apixaban (Eliquis) 5 mg PO BID atorvastatin 40 mg PO BEDTIME blood sugar diagnostic (Contour Next Test Strips) As directed 3 times a day 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 meter (Contour Next One Meter) As directed 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 meter,continuous (FreeStyle Sanjeev 3 [place]) As directed E&M code 11.8 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 sensor (FreeStyle Sanjeev 3 Sensor device) As directed E11.8 carbidopa-levodopa 25-100 mg 1 tab PO TID cyanocobalamin (vitamin B-12) 1,000 mcg IM Q28D empagliflozin (Jardiance) 10 mg PO DAILY ferrous sulfate 325 mg PO DAILY furosemide (Lasix) 40 mg PO DAILY insulin degludec (Tresiba FlexTouch U-100 insulin) 46 units subcut DAILY lancets As directed levothyroxine 137 mcg PO DAILY@0600 losartan 50 mg PO DAILY 90 days metoprolol tartrate 25 mg PO BID paroxetine HCl 40 mg PO DAILY pen needle, diabetic 4x daily HPI Comments Details: Bianca comes for follow-up, accompanied by her daughter. She continues to use oxygen at nighttime due to low oxygen levels. Otherwise she has been doing well. She was no worsening shortness of breath. No orthopnea, PND, leg edema. Overall taking medications. No prolonged palpitation irregular heartbeat. No bleeding issues or neurologic events. No lightheadedness, syncope. Her blood pressure off amlodipine have remained stable. No exertional chest pain. [facility] Medical History (HFpEF) heart failure with preserved ejection fraction CKD (chronic kidney disease) Pulmonary hypertension Atrial fibrillation Persistent atrial fibrillation CAD (coronary artery disease) Vitamin D deficiency HLD (hyperlipidemia) T2DM (type 2 diabetes mellitus) Acute exacerbation of congestive heart failure Hypertension Parkinson disease Hypothyroid Diabetes Surgical History Hx of cardiac cath (~01/2017) Hx of carpal tunnel repair Hx of knee surgery Hx of hysterectomy Family History Father No problems noted. Mother T2DM (type 2 diabetes mellitus) Brother T2DM (type 2 diabetes mellitus) Social History Household Members: None Housing: Condominium Do you presently have visiting nurse or other home services: No Alcohol intake: current Alcohol intake frequency: holidays/special occasions only Alcohol type: wine Patient Tobacco Use Status: Former Tobacco user Tobacco use type: Cigarette Second Hand Smoke Exposure: No Advance Directives Date on File: 03/22/20 service: No Current occupational status: retired Review of Systems Const Denies chills, Denies fatigue, Denies fever(s), Denies frequent falls, Denies weakness, Denies weight gain and Denies weight loss ENT Denies dizziness Card Denies chest pain, Denies leg edema, Denies lightheadedness, Denies palpitations, Denies dyspnea, Denies dyspnea on exertion, Denies orthopnea and Denies other (loss of consciousness) Resp Denies cough, Denies dyspnea and Denies dyspnea on exertion GI Denies hematochezia and Denies change in stool character Musc Denies abnormal gait, Denies muscle weakness, Denies numbness, Denies radiating pain into limb and Denies tingling Neuro Denies abnormal gait, Denies dizziness, Denies frequent falls, Denies numbness, Denies tingling and Denies weakness Endo Denies fatigue and Denies palpitations Physical Exam Vital Signs: Last Vital Signs BP 120/72 06/28/24 13:59 Pulse Ox 88 L 06/28/24 13:59 BMI result Body Mass Index 29.4 Const General: cooperative, healthy appearing, comfortable and no acute distress Orientation/consciousness: patient oriented x3 Neck Neck: Yes normal visual inspection Resp Effort & Inspection: normal respiratory effort Auscultation: clear to auscultation bilaterally, no crackles, no rales, no rhonchi and no wheezes Cardio Rhythm: abnormal rhythm irregularly irregular Heart sounds: S1 normal heart sound present, S2 normal heart sound present, no murmurs and no rubs Neuro General: patient oriented x3 Extrem General: Yes normal to inspection Psych Appearance: grossly normal Mental Status: mental status grossly normal Speech and movement: Normal speech and movement present Assessment & Plan Assessment & Plan (1) (HFpEF) heart failure with preserved ejection fraction: Code(s): I50.30 - Unspecified diastolic (congestive) heart failure Category: Medical Plan: Heart failure preserved ejection fraction, clinically euvolemic and well compensated. Continue aggressive rate control approach. Continue current diuretic therapy as well as Jardiance therapy. Continue daily weight monitoring avoidance salt loading. Continue aggressive blood pressure control. Additional diuretics as need be. Management of heart failure was discussed. Continue oxygen therapy at nighttime which should help with hypoxemic pulmonary vaso constriction. Will also refer to Pulmonary for further assessment for her chronic hypoxemic respiratory failure. (2) Atrial fibrillation, chronic: Code(s): I48.20 - Chronic atrial fibrillation, unspecified Category: Medical Plan: Chronic rate control atrial fibrillation. Continue current rate control with metoprolol. Has no worsening cardiovascular issues. Continue rate control approach. Continue full oral anticoagulation, currently on Eliquis 5 mg b.i.d.. Quarterly renal function test should be pursued. Will follow up in the clinic in 6 months time, sooner p.r.n.. Thank you for allowing me to partake in her care Orders: Referrals Pulmonology Referral G47.34 - Idiopathic sleep related nonobstructive alveolar hypoventilation Coding Level of Care Code Est Pt Level 4 (37900) Complex EM visit Add On G2211 Diagnoses (HFpEF) heart failure with preserved ejection fraction I50.30 Atrial fibrillation, chronic I48.20
[2024-06-28 13:59] VITALS: BP 120/72; O2SAT 88; BMI 29.4
--- OUTSIDE RECORDS SUMMARY | 2024-06-28 16:43 | XMS_ITS | Patient Health Record ---
[facility] Address [address] [facility] [place] [address] Care Team Providers Care Assembler Final Name Role Phone Reji Molina MD Primary Care Provider Unavailab doe Lianna Jacobo Unavailable [phone] Esthela Chapa Unavailable [phone] Allergies Allergen (clinical drug ingredient) Drug/Non Drug [...] days Active Simvastatin Active Easy Touch Pen Rudolph Active Toujeo SoloStar Not- Taking Metoprolol & [...] Problem Acquired hammer toe of right foot (916782853660249 5) Other hammer toe(s) (acquired), right foot (M20.41) Active confirmed Problem Acquired hallux valgus (42036307) Hallux valgus (acquired), left foot (M20.12) Active confirmed Problem Acquired hammer toe of left foot (234162316785960 3) Other hammer toe(s) (acquired), left foot (M20.42) Active confirmed Problem Acquired hallux valgus (14719495) Hallux valgus (acquired), right foot (M20.11) Active confirmed Problem Non-pressure ulcer lower limb (369661732) Non-pressure chronic ulcer of other part of left foot limited to breakdown of skin (L97.521) Active confirmed Problem Polyneuropathy due to type 2 diabetes mellitus (581791660) Type 2 diabetes mellitus with diabetic polyneuropathy (E11.42) Active confirmed Problem Gout (40314399) 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) Active confirmed Rx drug management (4) Problem Plantar fasciitis of left foot (548218177695457 01) Plantar fasciitis of left foot (M72.2) Active confirmed 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) Active confirmed Vital Signs Blood pressure diastolic 70 mm Hg 04/18/2024 Height 5 ft 2 in in 04/18/2024 Blood pressure systolic 120 mm Hg 04/18/2024 Weight 162 lbs 04/18/2024 BMI 29.63 kg/m2 04/18/2024 Procedures Procedure Date Ordered Date Performed Result Body Sit e 16414-XUCT SKIN LESIONS, OVER 4 06/29/2023 N/A 78063-NWSQ NAIL(S) 06/29/2023 N/A 34769-SOPZ SKIN LESIONS, OVER 4 04/18/2024 N/A 99933-CYED NAIL(S) 04/18/2024 N/A Encounters Encounter Location Date Provider Diagnosis [address] [address] 06/29/2023 Liannalópez Jacobo Type 2 diabetes mellitus with diabetic polyneuropathy E11.42 and Tinea pedis of both feet B35.[address] [address] 12/22/2023 Esthela Perica Pain in joint involving right ankle and foot M25.571 ; Gout of left foot M10.9 ; Pain in joint involving left ankle and foot M25.572 and Type 1 diabetes mellitus with diabetic polyneuropathy E10.[address] [address] 04/18/2024 Liannaadrian Jacobo Plantar fasciitis of left foot M72.2 ; Type 2 diabetes mellitus with diabetic polyneuropathy E11.42 ; Pain in left foot M79.672 ; Calcaneal spur, left foot M77.32 ; Interstitial myositis of left foot M60.172 ; Bursitis of left foot M77.52 and Xerosis of skin L85.3 [facility] [address] [address] 12/21/2023 Lianna Donnell [address] [address] 12/24/2023 Lianna Donnell [address] [address] 12/24/2023 Liannalópez Jacobo [address] [address] 03/21/2024 [facility] Donnell [address] [address] 04/15/2024 Lianna Jacobo Assessments Encounter Date Diagnosis [...] X ray : Foot, left 3V 12/22/2023 80288-HBXYHSQ NAIL, 6 OR MORE 03/25/2011 03455-LKKSFJC NAIL, 6 OR MORE 06/13/2011 01230-MKICWOD NAIL, 6 OR MORE 05/07/2012 32764-QTKFHEC NAIL, 6 OR MORE 08/13/2012 61420-TFJBBWJ NAIL, 6 OR MORE 11/16/2012 86853-HDQDTRE NAIL, 6 OR MORE 02/18/2013 52763-KVAMTJV NAIL, 6 OR MORE 05/24/2013 69254-JMQSQYI NAIL, 6 OR MORE 08/30/2013 11112-RMVZZSW NAIL, 6 OR MORE 02/02/2014 99208-XMKSRJL NAIL, 6 OR MORE 07/31/2014 00963-MYBSFNS NAIL, 6 OR MORE 12/04/2014 63575-Hvnw Destruction, 1-14 03/25/2011 54813-Tplg Destruction, 1-14 06/13/2011 88520-Opolkymc Plate 06/13/2011 07219-Mdelxbch Plate 05/07/2012 55729-Fypdcmfn Plate 03/25/2011 39727-Mvxbxlbc Plate 12/04/2014 38120-Vjoqymry Plate 07/31/2014 62919-Amivqino Plate 02/02/2014 61823-Jduyrase Plate 08/30/2013 33861-Ybpduxlk Plate 05/24/2013 95072-Dzzkoswj Plate 12/11/2016 78029-Prggykvr Plate 03/25/2018 24597-Hhevnuff Plate 11/19/2020 54565-Xrchpoge Plate 06/10/2021 64676-Butesdeb Plate Each Additional 31568-Bihfrphf Plate Each Additional 07863- Debride <25 sq cm 12/04/2014 47416- Debride <25 sq cm 08/05/2018 44194- Debride <25 sq cm 07/31/2014 60931 I&D ABSCESS- SIMPLE,SINGLE 016 26003 I&D ABSCESS- SIMPLE,SINGLE 016 55141- I&D ABSCESS-COMPLICATED,MULTI 07/2015 62646- I&D ABSCESS-COMPLICATED,MULTI , J0702- INJECT TENDON ORIGIN/INSER T 06/06/2015, J0702- INJECT TENDON ORIGIN/INSER T 04/16/2015, J0702- INJECT or DRAIN, JOINT/BUR SA 04/16/2015, J0702- INJECT or DRAIN, JOINT/BUR SA 06/06/2015 41846-PCUS SKIN LESIONS, OVER 4 11/20/19 21 98976-DZYE SKIN LESIONS, OVER 4 07/27/19 21 43716-GMYX SKIN LESIONS, OVER 4 11/21/19 20 73213-JXYP SKIN LESIONS, OVER 4 02/27/20 20 05065-LKBT SKIN LESIONS, OVER 4 12/05/19 15 65008-HYUX SKIN LESIONS, OVER 4 05/24/19 14 20794-FNFR SKIN LESIONS, OVER 4 08/31/19 14 24552-QSUC SKIN LESIONS, OVER 4 02/03/20 14 36846-JNYW SKIN LESIONS, OVER 4 08/01/19 15 58370-IGEY SKIN LESIONS, OVER 4 08/14/19 13 13885-XLCC SKIN LESIONS, OVER 4 02/19/20 13 12230-ILUN SKIN LESIONS, OVER 4 11/17/19 13 92916-KSAE SKIN LESIONS, OVER 4 03/25/20 11 59539-GQSV SKIN LESIONS, OVER 4 05/07/19 13 90812-ZKPJ SKIN LESIONS, OVER 4 06/13/19 12 71994-NPVE SKIN LESIONS, OVER 4 06/10/19 22 40271-NVJO SKIN LESIONS, OVER 4 12/10/19 22 72462-YWDS SKIN LESIONS, OVER 4 06/17/19 23 02234-RSAO SKIN LESIONS, OVER 4 04/18/19 25 55303-CZCF SKIN LESIONS, OVER 4 12/23/19 23 89078-YYGO SKIN LESIONS, OVER 4 06/29/19 24 12579-QRXT SKIN LESIONS, 2 TO 4 03/25/20 18 93635-LPTL SKIN LESIONS, 2 TO 4 04/16/19 16 65687-DVBL SKIN LESIONS, 2 TO 4 10/19/19 19 71351-ZTAT SKIN LESIONS, 2 TO 4 02/01/20 19 20074-DRXM SKIN LESIONS, 2 TO 4 05/09/19 20 72236-ZUBE SKIN LESIONS, 2 TO 4 08/15/19 20 73164-EYOE SKIN LESIONS, 2 TO 4 06/06/19 16 01004-TBIK SKIN LESIONS, 2 TO 4 08/15/19 16 83368-FXNY SKIN LESIONS, 2 TO 4 12/10/19 16 50714-KSKG SKIN LESIONS, 2 TO 4 12/12/19 17 09934-YMKN SKIN LESIONS, 2 TO 4 01/15/20 18 55802-XUCA SKIN LESIONS, 2 TO 4 07/20/19 19 43794-IYDK NAIL(S) 07/19/2018 70310-DGNU NAIL(S) 03/25/2018 83251-JYLS NAIL(S) 01/14/2018 65491-QLOD NAIL(S) 12/10/2015 52690-EKRO NAIL(S) 12/11/2016 59673-MFWQ NAIL(S) 08/15/2019 72158-DWGK NAIL(S) 05/09/2019 03804-JZCP NAIL(S) 01/31/2019 58417-QSSD NAIL(S) 10/18/2018 24904-BOTA NAIL(S) 02/27/2020 57094-AEKO NAIL(S) 07/26/2020 11430-LQVF NAIL(S) 11/19/2020 64664-KOYE NAIL(S) 06/10/2021 35078-PMIG NAIL(S) 06/16/2022 47683-CRPD NAIL(S) 12/09/2021 74516-ZDOD NAIL(S) 06/29/2023 97690-GQZY NAIL(S) 12/22/2022 49748-WSUQ NAIL(S) 04/18/2024 N1544-UEJBKRIA DYSTROPHIC NAILS ANY # R0939-XWTIYTMI DYSTROPHIC NAILS ANY # B1506-BGKBNCXN DYSTROPHIC NAILS ANY # 33714 - Shave Biopsy of Skin Lesion 11/2018 Next Appt Details Provider Name:Lianna Jacobo , 07/18/2024 11:15:00 AM, [address] [facility], [place], [address], Insurance Providers Payer Name Payer Address Payer Phone Subscriber Number Group Number Insured Name Patient Relationship to Insured Coverage Start Date Coverage End Date Medicare National Govt [employer] [address] [facility] [place] [address] [id number] Bianca Hunt Self - patient is the insured [employer] [address] [place] [address] [phone] [id number] Bianca Hunt Self - patient is the insured Medical (General) History Medical History History ICD Code thyroid disorder psoriasis mumps measles hypertension headaches/migraines diabetic chicken pox back, hip, knee pain osteoarthritis Anxiety disorder sciatica meter put on arm for blood sugar Surgical History Surgery Date(Month/Year) carpal tunnel surgery cataract surgery 2007 knee surgery skin cancer removed 2013, 2014 Hospitalization History Reason Date(Month/Year) [facility] ER- coughing, sick 03/2024 [facility]- Water around heart and lungs [facility]- Abdominal Pain-Infection - antibiot ic 06/06 [facility]- couldnt catch breath 2018 [facility] Pericarditis/ Pleurral Effusion 05/15 018
--- OUTSIDE RECORDS SUMMARY | 2024-06-28 16:43 | XMS_ITS | Clinical Summary ---
Author Organization [facility] Address [address] [place] [address] Phone Care Team Providers Care Print Developer Name Role Phone Reji Molina MD Primary Care Provider [phone] Allergies Active Allergy Reactions Criticality Noted Date [...] patient's age to complete this topic Insurance [facility] MEDICARE MEDICAID [place] [facility] [place]ICAID [place] Care Teams Print Developer Relationship Specialty Start Date End Date Reji Molina MD [address] [place] [address] PCP - General 04/23/20
--- OUTSIDE RECORDS SUMMARY | 2024-06-28 16:43 | XMS_ITS ---
Author Organization [facility] Address [address] [place] [address] Care Team Providers Care University Relations Recruiter Name Role Phone Tracy MENDEZ, Reji Primary Care Provider Unavailab Lianna Roque [phone] Encounters Encounter Location Date Provider Diagnosis [address] [address] 03/21/2024 Lianna Jacobo Plan Of Treatment Next Appt Details Provider Name:Lianna Jacobo , 07/18/2024 11:15:00 AM, [address] [place], [address], Progress Notes * LEROYJacobBianca ADOB:[birth year] (79 yo F)Acc No.[id number]:03/21/2024 Progress Note Patient:?Bianca HUNT Provider:?Lianna Jacobo DPM :1945???Age:79 Y???Sex:Female D ate:03/21/2024 [address] [facility] [place] Pcp:Reji Molina MD Subjective: * Chief Complaints: [...] Jacobo DPM Date:?2023 Generated for Josefina neri/Amanda/Kyaitting on:?06/28/2024 04:43 PM EDT
== END 2024-06-28 14:26 | disposition home or self-care (01) ==
PROVIDERS: PCP Internal Medicine; Visit Provider Internal Medicine Cardiovascular Disease
DX: I50.30 Unspecified diastolic (congestive) heart failure (principal); I48.20 Chronic atrial fibrillation, unspecified
CPT/HCPCS: 99214; G2211

== ENCOUNTER → 2024-06-28 13:57 | Outpatient (BNVA) | payer MEDICARE, SELFPAY | PROVIDERS: PCP Internal Medicine; Visit Provider Internal Medicine Cardiovascular Disease | DX: I50.30 Unspecified diastolic (congestive) heart failure (principal); I48.20 Chronic atrial fibrillation, unspecified | CPT/HCPCS: 99212 ==

== ENCOUNTER 2024-07-20 12:54 | Outpatient (AMB) | payer MEDICARE, SELFPAY ==
--- NOTE | 2024-07-20 09:34 | A.OFFVIS_ITS ---
Vital Signs 07/20/24 13:02 Height 5 ft 2 in Weight 163 lb 2.273 oz BMI 29.8 BP 112/76 Blood Pressure Location Rt brachial Position Sitting Pulse 61 Pulse Source Pulse Oximeter Pulse Oximetry (%) 95 Oxygen Delivery Method Room Air Intake Visit Reasons: T2DM Intake Note: Patient presents today for a follow-up on Type 2 Diabetes Mellitus: Last Diabetic eye exam was on: 09/2023 Last Podiatry exam was on: 2023 Most recent HbA1c: 8.8%, 07/20/2024 Random Glucose- 301 mg/dL, Today, Patient stated she ate a bagel. Retail Business Analyst Required: No Accompanied by: Self / Same As Patient Allergies baclofen Adverse Reaction (Unknown, Verified 07/20/24 13:06) CONFUSION, OUT OF IT oxycodone [From Percocet] Adverse Reaction (Unknown, Verified 07/20/24 13:06) NAUSEA HPI Comments Details: Patient is a 79 year-old female with DM type 2 who presents for management of diabetes. Patient was last seen 04/21/24.She is now on a Freestyle Sanjeev 3. Today presents with daughter Alyson who assists with patients medication management.Hgb A1C 07/20/24: 04/21/24 9.7% 01/20/24 8.7% up from 10/20/23 7.8% Micro and macrovascular complications: nephropathy, CAD Previously on short acting insulin which was stopped by PCP due to patient not remembering to take it. Diabetes medications: Tresiba 50 units Jardiance 10mg daily (started by compensation and benefits administrator for CHF) Freestyle sanjeev sensor 3 average glucose: 209 14 day continuous glucose sensor report reviewed Glucose Management indicator 8.3 % Time CGM active [ ] % TIme in ranges: 29 % very high (above 250) 36 % high (181-250) 32 % in range (70-180] 3 % low (69-55) 0 % very low (below 54) [33.6 ] Glucose variability (target <36%) Interpretation of CGMS glucose readings trending downward by the am indicating she may not be able to have an increase in her Tresiba Hyperglycemia: asymptomatic Hypoglycemia:had a few am lows when she forgets hs snack, she has had a few mild in am No neuropathy: no numbness, tingling, cramping in lower extremities, sees Podiatry every [address] Donnell elizondo doing well with this, just seen yesterday No Retinopathy: last eye exam: summer 2023 + Nephropathy:03/17/24 eGFR [address] Murphy last seen 02/08 Cr bump up after addition of jardiance however stable Other specialists: Colleter, Assembler Motor Vehicle, Neurologist She is on Levothyroxine not prescribed by our office she will have labs done had adjustment earlier in the year [facility] Medical History (HFpEF) heart failure with preserved ejection fraction CKD (chronic kidney disease) Pulmonary hypertension Atrial fibrillation Persistent atrial fibrillation CAD (coronary artery disease) Vitamin D deficiency HLD (hyperlipidemia) T2DM (type 2 diabetes mellitus) Acute exacerbation of congestive heart failure Hypertension Parkinson disease Hypothyroid Diabetes Surgical History Hx of cardiac cath (~01/2017) Hx of carpal tunnel repair Hx of knee surgery Hx of hysterectomy Family History Father No problems noted. Mother T2DM (type 2 diabetes mellitus) Brother T2DM (type 2 diabetes mellitus) Social History Household Members: None Housing: Condominium Do you presently have visiting nurse or other home services: No Alcohol intake: current Alcohol intake frequency: holidays/special occasions only Alcohol type: wine Patient Tobacco Use Status: Former Tobacco user Tobacco use type: Cigarette Second Hand Smoke Exposure: No Advance Directives Date on File: 03/22/20 service: No Current occupational status: retired Physical Exam Vital Signs: Last Vital Signs Pulse 61 07/20/24 13:02 BP 112/76 07/20/24 13:02 Pulse Ox 95 07/20/24 13:02 Oxygen Delivery Method Room Air 07/20/24 13:02 BMI result Body Mass Index 29.8 Const Other: Absence of Cushingoid features. Absence of acromegalic features. Neck exam reveals nl size thyroid about 15 gms. No thyroid nodules palpable. Heart S1 S2, Reg R/R. No M/R G. Skin exam reveals absence of vitiligo or acanthosis nigricans. The foot exam was deferred today it was done yesterday at podiatry Results AMB Hemoglobin A1c AMB Hemoglobin A1c 8.8 % Last Edit by CELINA Montes on 07/20/24 13:22 Results Reviewed Results Reviewed: Laboratory Last Values Glucose (Clinic) 301 mg/dL (60-115) H 07/20/24 13:11 Hgb A1c (Clinic) 8.8 % (4.0-6.0) H 07/20/24 13:21 Assessment & Plan Assessment & Plan (1) Hypothyroid: Code(s): E03.9 - Hypothyroidism, unspecified Category: Medical Qualifiers: Hypothyroidism type: unspecified Qualified Code(s): E03.9 - Hypothyroidism, unspecified Plan: She will have labs done today to determine if dose adjustment is needed Orders: Orders AMB Hemoglobin A1c Today E11.9 - Type 2 diabetes mellitus without complications Coding Level of Care Code Est Pt Level 4 (07257) Complex EM visit Add On G2211 Diagnoses Hypothyroidism, unspecified type E03.9 Hypothyroidism type: unspecified Time Spent (min) 30 Comment Time spent reviewing labs/provider notes, glucose,sensor reports, face to face, chart doc
[2024-07-20 13:02] VITALS: BP 112/76; PULSE 61; O2SAT 95; BMI 29.8
[2024-07-20 13:14] LABS: Glucose, Whole Blood 301 mg/dL (60-115)
--- OUTSIDE RECORDS SUMMARY | 2024-07-20 14:59 | XMS_ITS ---
Author Organization [facility] Address [address] [place] [address] Care Team Providers Care Costume Draper Name Role Phone Reji Molina MD Primary Care Provider Unavailab Lianna Roque Unavailable [phone] REASON FOR VISIT A1C Encounters Encounter Location Date Provider Diagnosis [facility] [address] [place] [address] 07/18/2024 Lianna Jacobo Plan Of Treatment Next Appt Details Provider Name:Lianna Jacobo , 11/17/2024 11:15:00 AM, [address] [place], [address], Progress Notes * Bianca HUNT ADOB:[birth year] (79 yo F)Acc No.[id number]:07/18/2024 Patient:?Bianca HUNT :1945???Age:79 Y???Sex:Female [address] [facility] [facility] [place] [address] * * Date:?
--- OUTSIDE RECORDS SUMMARY | 2024-07-20 14:59 | XMS_ITS | Clinical Summary ---
Author Organization [facility] Address [address] [place] [address] Phone Care Team Providers Care Barrel Line Operator Name Role Phone Reji Molina MD Primary Care Provider [phone] Allergies Active Allergy Reactions Criticality Noted Date [...] Diabetes: Visual Foot Exam 05/13/2020 Influenza Vaccine (Season Ended) 2024 Hepatitis B Vaccine Aged Out No longe r eligible based on patient's age to complete this topic Insurance [facility] MEDICARE MEDICAID [place] [facility] [place]ICAID [place] Care Teams Barrel Line Operator Relationship Specialty Start Date End Date Reji Molina MD [address] [place] [address] PCP - General 04/23/20
== END 2024-07-20 13:29 | disposition home or self-care (01) ==
LOC: HO.ENCR 12:55
PROVIDERS: PCP Internal Medicine; Visit Provider Nurse Practitioner Adult Health
DX: E11.9 Type 2 diabetes mellitus without complications (principal); E03.9 Hypothyroidism, unspecified
CPT/HCPCS: 99214; G2211

== ENCOUNTER → 2024-07-20 12:54 | Outpatient (BNVA) | payer MEDICARE, SELFPAY | PROVIDERS: PCP Internal Medicine; Visit Provider Nurse Practitioner Adult Health | DX: E11.21 Type 2 diabetes mellitus with diabetic nephropathy (principal); E03.9 Hypothyroidism, unspecified; I25.10 Atherosclerotic heart disease of native coronary artery without angina pectoris; Z79.899 Other long term (current) drug therapy | CPT/HCPCS: 82947; 83036; 99212 ==

== ENCOUNTER 2024-07-22 08:48 | Outpatient (REF) | payer MEDICARE, SELFPAY ==
--- OUTSIDE RECORDS SUMMARY | 2024-07-22 08:59 | XMS_ITS | Clinical Summary ---
Author Organization [facility] Address [address] [place] [address] Phone Care Team Providers Care Horticulture Supervisor Name Role Phone Reji Molina MD Primary Care Provider [phone] Allergies Active Allergy Reactions Criticality Noted Date [...] Due Date Last Done Comments Pneumococcal Vaccine: 50+ Ye ars (1 of 2 - PCV) 01/03/1951 Diabetes: Hemoglobin A1C 05/13/2020 Diabetes: Ophthalmology Exam 05/13/2020 Diabetes: Pedal Pulse Checked 05/13/2020 Diabetes: Sensory Foot Exam 05/13/2020 Diabetes: Visual Foot Exam 05/13/2020 Influenza Vaccine (Season Ended) 2024 Hepatitis B Vaccine Aged Out No longe r eligible based on patient's age to complete this topic Insurance [facility] Medicare Medicaid [place] [facility] [place] Care Teams Horticulture Supervisor Relationship Specialty Start Date End Date Reji Molina MD [address] [place] [address] PCP - General 04/23/20
--- OUTSIDE RECORDS SUMMARY | 2024-07-22 08:59 | XMS_ITS | Patient Health Record ---
Author Organization [facility] Address [address] [place] [address] Care Team Providers Care Collar Baster Name Role Phone Reji Molina MD Primary Care Provider Unavailab doe Lianna Jacobo Unavailable [phone] Esthela Chapa Unavailable [phone] Allergies Allergen (clinical drug ingredient) Drug/Non Drug Allergy documented on EMR Reaction Allergy Type Onset Date Status acetaminophen / oxycodone Percocet Unknown Drug Allergy Active Results Component Value Reference Range Notes HEMOGLOBIN A1C (GLYCOHEMOGLO BIN) Reviewed date:07/21/2024 01:45:58 PM Interpretation: Performing Lab: Notes/Report: HEMOGLOBIN A1C % (HH) 9.3 Reason For Referral No Information Medications Medication SIG (Take, Route, Frequency, Duration) Notes Start Date End Date Status Imitrex Not-Taking Levemir Not-Taking ALPRAZolam Active PARoxetine HCl Activ e Levothyroxine Sodium Active zzzExtra Depth Orthopedic Shoes (1 Pair) with Customized Heat Molded Multidensity Innersoles (3 Pair) . . . Dx: IDDM/Polyneuropathy (E10.42), Hammertoe Foot Deformity (M20.41,M20.42), Preulcerative Skin Lesion(s) (L85.1) for . 08/15/2015 Not-Taki halle Eliquis Active Extra-Depth Diabetic Shoes with 3 Pair Custom heat-molded multi-density innersoles . for 1 year . Dx: 250.61,735.4,701 for . Not-Takin g Ammonium Lactate 12 % 1 application Externally to affected areas of dry skin to feet except for between the toes Twice a day for 30 days Active Jardiance Active Aspirin Not-Taking Night Splint AFO - L1930 1 wear at rest for 30 days Active B12 Active John Contour Next Test Not-Taking Vitamin D3 Active Xanax Not-Taking HYDROcodone-Acetaminophen Not-Taking Victoza Not-Taking Tresiba FlexTouch No t-Taking Extra Depth Orthopedic Shoes (1 Pair) with Customized Heat Molded Multidensity Innersoles (3 Pair) as directed Dx: NIDDM/Polyneuropathy (E11.42), Hammertoe Foot Deformity (M20.41,M20.42), Preulcerative Skin Lesion(s) (L85.1 06/16/2022 Not-Taking HumaLOG Not-Taking Estradiol 0.625 MG 1 tablet Orally Reyna y for Three Weeks, 1 Week off for 30 day(s) Not-Taking Not-Taking Ciclopirox Olamine 0.77 % 1 application Externally Twice a day for 30 days Active Soma Not-Taking zzzCompression Stockings 20-30mm Hg . . . for . Not-Taking Atorvastatin Calcium 40 MG Oral for 90 Days Active Iron 325 (65 Fe) MG 1 tablet Orally Once a day for 30 day(s) Active Tresiba 100 UNIT/ML as directed Subcutaneous Active Zocor Not-Taking Losartan Potassium A ctive Urea 20 % 1 application to affected area as needed Externally Twice a day for 30 days 05/24/2013 Not-Taking Amlodipine & Diet Manage Prod Not-Taking Carbidopa-Levodopa N ot-Taking Furosemide Active Toujeo SoloStar Not- Taking Metoprolol & Diet Manage Prod Active Fioricet 50-325-40 MG 1 tablet as needed Orally every 4 hrs Not-Taking Extra Depth Orthopedic Shoes (1 Pair) with Customized Heat Molded Multidensity Innersoles (3 Pair) as directed Dx: NIDDM/Polyneuropathy (E11.42), Hammertoe Foot Deformity (M20.41,M20.42), Preulcerative Skin Lesion(s) (L85.1 07/18/2024 Active Simvastatin Active Glimepiride 2 MG 1 tablet with breakf ast or the first main meal of the day Orally Once a day for 30 day(s) Not-Taking Easy Touch Pen [place] Active Meclizine HCl Not-Gray buchanan Cyanocobalamin Activ e Vicodin occ Not-Taking metFORMIN HCl Not-Ta chanel Immunizations Vaccine Route Administration Date Status Comme [...] Date Details (start date - stop date) Never Smoker NA - NA Tobacco use other than smoking: Question Answer Notes Are you an other tobacco user? No Tobacco Control (Standard) Question Answer Notes Tobacco use: Nonsmoker Additional Findings: Tobacco non-user Current no nsmoker AUDIT-C (Standard) Question Answer Notes Did you have a drink contain ing alcohol in the past year? Yes How often did you have a dri nk containing alcohol in the past year? Monthly or less (1 point) How many drinks did you have on a typical day when you were drinking in the past year? 1 or 2 drinks (0 point) How often did you have six o r more drinks on one occasion in the past year? Never (0 point) Points 1 Interpretation Negative Problems Problem Type SNOMED Code ICD Code Onset Dates Problem Status W/U Status Risk Notes Problem Acquired hammer toe of right foot (017122761283166 5) Other hammer toe(s) (acquired), right foot (M20.41) Active confirmed Problem Acquired hallux valgus (94009613) Hallux valgus (acquired), left foot (M20.12) Active confirmed Problem Acquired hammer toe of left foot (117240323891447 3) Other hammer toe(s) (acquired), left foot (M20.42) Active confirmed Problem Acquired hallux valgus (39203669) Hallux valgus (acquired), right foot (M20.11) Active confirmed Problem Non-pressure ulcer lower limb (184152447) Non-pressure chronic ulcer of other part of left foot limited to breakdown of skin (L97.521) Active confirmed Problem Polyneuropathy due to type 2 diabetes mellitus (766422757) Type 2 diabetes mellitus with diabetic polyneuropathy (E11.42) Active confirmed Problem Gout (34946378) 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) Active confirmed Rx drug management (4) Problem Plantar fasciitis of left foot (978011520642632 01) Plantar fasciitis of left foot (M72.2) Active confirmed Problem Interstitial myositis (29661134) Interstitial myositis of left foot (M60.172) Active confirmed Vital Signs Blood pressure diastolic 70 mm Hg 07/18/2024 Height 5 ft 2 in in 07/18/2024 Blood pressure systolic 120 mm Hg 07/18/2024 Weight 162 lbs 07/18/2024 BMI 29.63 kg/m2 07/18/2024 Procedures Procedure Date Ordered Date Performed Result Body Sit e 47086-XBQU SKIN LESIONS, OVER 4 04/18/2024 N/A 27085-KDTY NAIL(S) 04/18/2024 N/A 20048-XTCB SKIN LESIONS, OVER 4 07/18/2024 N/A 11085-BGII NAIL(S) 07/18/2024 N/A Encounters Encounter Location Date Provider Diagnosis [address] [address] 12/22/2023 Esthela Perica Pain in joint involving right ankle and foot M25.571 ; Gout of left foot M10.9 ; Pain in joint involving left ankle and foot M25.572 and Type 1 diabetes mellitus with diabetic polyneuropathy E10.[address] [address] 04/18/2024 Lianna Black Plantar fasciitis of left foot M72.2 ; Type 2 diabetes mellitus with diabetic polyneuropathy E11.42 ; Pain in left foot M79.672 ; Calcaneal spur, left foot M77.32 ; Interstitial myositis of left foot M60.172 ; Bursitis of left foot M77.52 and Xerosis of skin L85.[address] [address] 07/18/2024 Lianna Black Plantar fasciitis of left foot M72.2 ; Other hammer toe(s) (acquired), right foot M20.41 ; Type 2 diabetes mellitus with diabetic polyneuropathy E11.42 ; Calcaneal spur, left foot M77.32 ; Interstitial myositis of left foot M60.172 ; Bursitis of left foot M77.52 ; Xerosis of skin L85.3 and Other hammer toe(s) (acquired), left foot M20.42 [facility] [address] [facility] [address] [place] [address] 12/21/2023 [facility] [address] [place] [address] 12/24/2023 [facility] [address] [place] [address] 12/24/2023 [facility] [address] [place] [address] [facility] [address] 04/15/2024 [facility] [address] [address] 07/18/2024 [facility] Encounter Date Diagnosis (ICD Code) Assessment Notes Treatment Notes Treatment Clinical Notes Section Notes 12/22/2023 Gout of left foot (ICD-10 - [...] Patient Educated with: RICE THERAPY.pdf (RICE THERAPY.pdf) 07/18/2024 Other hammer toe(s) (acquired), right foot (ICD-10 - M20.41) Patient Educated with: DIABETIC FOOT CARE INSTRUCTIONS. pdf (DIABETIC FOOT CARE INSTRUCTIONS. pdf) 07/18/2024 Plantar fasciitis of left foot (ICD-10 - M72.2) 07/18/2024 Type 2 diabetes mellitus with diabetic polyneuropathy (ICD-10 - E11.42) 04/18/2024 Pain in left foot (ICD-10 - M79.672) 12/22/2023 Pain in joint involving left ankle and foot (ICD-10 - M25.572) 12/22/2023 Type 1 diabetes mellitus with diabetic polyneuropathy (ICD-10 - E10.42) 04/18/2024 Calcaneal spur, left foot (ICD-10 - M77.32) 07/18/2024 Calcaneal spur, left foot (ICD-10 - M77.32) 04/18/2024 Interstitial myositis of left foot (ICD-10 - M60.172) 07/18/2024 Interstitial myositis of left foot (ICD-10 - M60.172) 04/18/2024 Bursitis of left foot (ICD-10 - M77.52) 07/18/2024 Bursitis of left foot (ICD-10 - M77.52) 07/18/2024 Xerosis of skin (ICD-10 - L85.3) 04/18/2024 Xerosis of skin (ICD-10 - L85.3) 07/18/2024 Other hammer toe(s) (acquired), left foot (ICD-10 - M20.42) 12/22/2023 Other Plan Of Treatment Pending Test Test Name Order Date *Uric Acid, Serum 12/22/2023 *CBC With Differential/Platelet 12/22/19 24 C-Reactive Protein, Quant 12/22/2023 ESR 12/22/2023 X ray : Foot, left 3V 12/22/2023 09491-MJJICNJ NAIL, 6 OR MORE 03/25/2011 47165-CQMYZHU NAIL, 6 OR MORE 06/13/2011 13213-TUGGHLF NAIL, 6 OR MORE 05/07/2012 62603-OUGHLUG NAIL, 6 OR MORE 08/13/2012 11635-TLNBFXW NAIL, 6 OR MORE 11/16/2012 56458-AZTEPZJ NAIL, 6 OR MORE 02/18/2013 07914-IADUPEV NAIL, 6 OR MORE 05/24/2013 31903-QMFVROB NAIL, 6 OR MORE 08/30/2013 87209-PIYQJCY NAIL, 6 OR MORE 02/02/2014 52327-QPWTCJN NAIL, 6 OR MORE 07/31/2014 05577-FHENLLC NAIL, 6 OR MORE 12/04/2014 16878-Dvin Destruction, 1-14 03/25/2011 31558-Ircx Destruction, 1-14 06/13/2011 35033-Ngdnlzwd Plate 06/13/2011 32518-Gibmcuuk Plate 05/07/2012 81467-Sdrppnhi Plate 03/25/2011 67745-Erynqkjr Plate 12/04/2014 14600-Qkyofapd Plate 07/31/2014 32510-Azajdtdz Plate 02/02/2014 35728-Ckdmidvy Plate 08/30/2013 00531-Jnumqqaf Plate 05/24/2013 78403-Xhastkpq Plate 12/11/2016 47783-Eyxtvaof Plate 03/25/2018 76874-Axvurbtq Plate 11/19/2020 83346-Onxcbzdn Plate 06/10/2021 23964-Xtqrntxm Plate Each Additional 98073-Daflgrcb Plate Each Additional 23071- Debride <25 sq cm 12/04/2014 33291- Debride <25 sq cm 08/05/2018 26701- Debride <25 sq cm 07/31/2014 48780 I&D ABSCESS- SIMPLE,SINGLE 016 52295 I&D ABSCESS- SIMPLE,SINGLE 016 91965- I&D ABSCESS-COMPLICATED,MULTI 07/2015 80211- I&D ABSCESS-COMPLICATED,MULTI , J0702- INJECT TENDON ORIGIN/INSER T 06/06/2015, J0702- INJECT TENDON ORIGIN/INSER T 04/16/2015, J0702- INJECT or DRAIN, JOINT/BUR SA 04/16/2015, J0702- INJECT or DRAIN, JOINT/BUR SA 06/06/2015 05000-EEVN SKIN LESIONS, OVER 4 11/20/19 21 95521-QXEG SKIN LESIONS, OVER 4 07/27/19 21 15187-YFQQ SKIN LESIONS, OVER 4 11/21/19 20 09494-MQYO SKIN LESIONS, OVER 4 02/27/20 20 75800-WIWR SKIN LESIONS, OVER 4 12/05/19 15 73301-RFBO SKIN LESIONS, OVER 4 05/24/19 14 64791-GCFJ SKIN LESIONS, OVER 4 08/31/19 14 96622-XSBI SKIN LESIONS, OVER 4 02/03/20 14 30701-MRZR SKIN LESIONS, OVER 4 08/01/19 15 90027-OPMN SKIN LESIONS, OVER 4 08/14/19 13 09244-CZIG SKIN LESIONS, OVER 4 02/19/20 13 19906-UFHV SKIN LESIONS, OVER 4 11/17/19 13 71682-ASTH SKIN LESIONS, OVER 4 03/25/20 11 08302-WDJH SKIN LESIONS, OVER 4 05/07/19 13 88757-XDJS SKIN LESIONS, OVER 4 06/13/19 12 96184-UQBH SKIN LESIONS, OVER 4 06/10/19 22 66370-HDTO SKIN LESIONS, OVER 4 12/10/19 22 10421-GZND SKIN LESIONS, OVER 4 06/17/19 49991-NKTY SKIN LESIONS, OVER 4 04/18/19 71702-DJCD SKIN LESIONS, OVER 4 12/23/19 68025-CKRM SKIN LESIONS, OVER 4 06/29/19 24 74257-OPPU SKIN LESIONS, OVER 4 07/19/19 00148-SGCO SKIN LESIONS, 2 TO 4 03/25/20 18 34046-NQNF SKIN LESIONS, 2 TO 4 04/16/19 16 32498-GOWT SKIN LESIONS, 2 TO 4 10/19/19 19 37173-NCHP SKIN LESIONS, 2 TO 4 02/01/20 19 14377-DCBA SKIN LESIONS, 2 TO 4 05/09/19 20 86601-BFIB SKIN LESIONS, 2 TO 4 08/15/19 20 89395-OBPH SKIN LESIONS, 2 TO 4 06/06/19 16 07455-DOTB SKIN LESIONS, 2 TO 4 08/15/19 16 15107-DMUF SKIN LESIONS, 2 TO 4 12/10/19 16 77258-UZYD SKIN LESIONS, 2 TO 4 12/12/19 17 58032-GVYM SKIN LESIONS, 2 TO 4 01/15/20 18 02005-NAXI SKIN LESIONS, 2 TO 4 07/20/19 19 54717-RNJU NAIL(S) 07/19/2018 37821-FFMQ NAIL(S) 03/25/2018 57704-PGFV NAIL(S) 01/14/2018 92630-OEMJ NAIL(S) 12/10/2015 54677-WMTY NAIL(S) 12/11/2016 30267-NBFE NAIL(S) 08/15/2019 41450-NCGK NAIL(S) 05/09/2019 59328-AKRP NAIL(S) 01/31/2019 39007-ZUPA NAIL(S) 10/18/2018 55589-GEYG NAIL(S) 02/27/2020 56869-LJEL NAIL(S) 07/26/2020 80060-LFTR NAIL(S) 11/19/2020 31119-LUTK NAIL(S) 06/10/2021 27833-TWWQ NAIL(S) 06/16/2022 24676-KJBR NAIL(S) 12/09/2021 41339-MKIL NAIL(S) 06/29/2023 93679-OAGS NAIL(S) 12/22/2022 83922-YSLZ NAIL(S) 04/18/2024 09313-HGWH NAIL(S) 07/18/2024 Z2823-ECRTDNIE DYSTROPHIC NAILS ANY # O5816-GMYQORSY DYSTROPHIC NAILS ANY # W8357-AQZYIUVW DYSTROPHIC NAILS ANY # 46111 - Shave Biopsy of Skin Lesion 11/2018 Next Appt Details Provider Name:Lianna Jacobo , 11/17/2024 11:15:00 AM, [address] [place], [address], Insurance Providers Payer Name Payer Address Payer Phone Subscriber Number Group Number Insured Name Patient Relationship to Insured Coverage Start Date Coverage End Date Medicare National [employer]t [employer] [address] [facility] [place] [address] [id number] Bianca Hunt Self - patient is the insured [employer] [address] [place] [address] [phone] [id number] Bianca Hunt Self - patient is the insured Medical (General) History Medical History History ICD Code thyroid disorder psoriasis mumps measles hypertension headaches/migraines diabetic chicken pox back, hip, knee pain osteoarthritis Anxiety disorder sciatica meter put on arm for blood sugar Surgical History Surgery Date(Month/Year) carpal tunnel surgery cataract surgery 2007 knee surgery skin cancer removed 2013, 2014 Hospitalization History Reason Date(Month/Year) [facility]- Pericarditis/ Pleurral Effusion 05/15 [facility]- coughing, sick 03/2024 [facility]- Water around heart and lungs [facility]- Abdominal Pain-Infection - antibiot ic 06/06 [facility]- couldnt catch breath 2019
--- OUTSIDE RECORDS SUMMARY | 2024-07-22 08:59 | XMS_ITS ---
Author Organization [facility] Address [address] [place] [address] Care Team Providers Care Cartridge Gauger Name Role Phone Reji Molina MD Primary Care Provider Unavailab Lianna Roque Unavailable [phone] REASON FOR VISIT A1C Encounters Encounter Location Date Provider Diagnosis [facility] [address] [place] [address] 07/18/2024 Lianna Jacobo Plan Of Treatment Next Appt Details Provider Name:Lianna Jacobo , 11/17/2024 11:15:00 AM, [address] [place], [address], Progress Notes * Bianca HUNT ADOB:[birth year] (79 yo F)Acc No.[id number]:07/18/2024 Patient:?Bianca HUNT :1945???Age:79 Y???Sex:Female [address] [facility] [place] [address] * true * Date:? Generated for Printi ng/Faxing/eTransmitting on:?07/22/2024 08:59 AM EDT
[2024-07-22 10:55] LABS: Creatinine Urine 58.61 mg/dL; Microalbumin Urine < 5.0 mg/L
[2024-07-22 11:09] LABS: Cholesterol 189 mg/dL (<200); HDL Cholesterol 45 mg/dL (>40); LDL Cholesterol Calculated 85 mg/dL (<100); Triglycerides 298 mg/dL (<150)
[2024-07-22 11:28] LABS: Free T4 (Free Thyroxine) 1.11 ng/dL (0.71-1.85); Thyroid Stimulating Hormone 0.12 uIU/mL (0.32-4.0)
== END 2024-07-22 08:49 | disposition home or self-care (01) ==
LOC: HO.HMGCLDS 08:48
PROVIDERS: PCP Internal Medicine; Visit Provider Nurse Practitioner Adult Health
DX: E11.9 Type 2 diabetes mellitus without complications (principal)
CPT/HCPCS: 36415; 80061; 82570; 84439; 84443

== ENCOUNTER 2024-09-19 13:28 | Outpatient (AMB) | payer MEDICARE, SELFPAY ==
--- NOTE | 2024-09-19 13:30 | MHC.OFFVIS ---
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 The patient is a 79 year woman with a known history of atrial fibrillation and congestive heart failure. She was admitted to the hospital back in March with worsening respiratory symptoms and a fall. Then she had a CT scan of the chest which I personally reviewed demonstrating evidence of pulmonary edema and increased vascular congestion. In addition, the patient did have some collapsing of the trachea suggesting a crescent moves side with a likely diagnosis of tracheomalacia. She had a blood gas also demonstrating hypercarbia. The patient does use oxygen at nighttime. She does respond well to that. She also continues on the cardioprotective medications and diuresis. She monitors her weight very closely. The patient does have some issues with daytime drowsiness. Jber score is elevated none over 24. The patient have AFib and also cardiovascular risk factors. Therefore, she will require an in-lab sleep study to further address any evidence of any sleep apnea or hypoventilation. [facility] Medical History (Updated 09/19/24 @ 14:26 by David Reyes MD) Nocturnal hypoxia LOLY (obstructive sleep apnea) (HFpEF) heart failure with preserved ejection fraction CKD (chronic kidney disease) Pulmonary hypertension Atrial fibrillation Persistent atrial fibrillation CAD (coronary artery disease) Vitamin D deficiency HLD (hyperlipidemia) T2DM (type 2 diabetes mellitus) Acute exacerbation of congestive heart failure Hypertension Parkinson disease Hypothyroid Diabetes Surgical History Hx of cardiac cath (~01/2017) Hx of carpal tunnel repair Hx of knee surgery Hx of hysterectomy Family History Father No problems noted. Mother T2DM (type 2 diabetes mellitus) Brother T2DM (type 2 diabetes mellitus) Social History Household Members: None Housing: Condominium Do you presently have visiting nurse or other home services: No Alcohol intake: current Alcohol intake frequency: holidays/special occasions only Alcohol type: wine Patient Tobacco Use Status: Former Tobacco user Tobacco use type: Cigarette Second Hand Smoke Exposure: No Advance Directives Date on File: 03/22/20 service: No Current occupational status: retired Review of Systems Const Denies chills, Denies fatigue, Denies fever(s), Denies frequent falls, Denies weakness, Denies weight gain and Denies weight loss ENT Denies dizziness Card Denies chest pain, Denies leg edema, Denies lightheadedness, Denies palpitations, Denies dyspnea, Denies dyspnea on exertion, Denies orthopnea and Denies other (loss of consciousness) Resp Denies cough, Denies dyspnea and Denies dyspnea on exertion GI Denies hematochezia and Denies change in stool character Musc Denies abnormal gait, Denies muscle weakness, Denies numbness, Denies radiating pain into limb and Denies tingling Neuro Denies abnormal gait, Denies dizziness, Denies frequent falls, Denies numbness, Denies tingling and Denies weakness Endo Denies fatigue and Denies palpitations Physical Exam Vital Signs: BMI result Body Mass Index 30.0 Const General: cooperative, healthy appearing, comfortable and no acute distress Orientation/consciousness: patient oriented x3 Neck Neck: Yes normal visual inspection Resp Effort & Inspection: normal respiratory effort Auscultation: clear to auscultation bilaterally, no crackles, no rales, no rhonchi and no wheezes Cardio Rhythm: abnormal rhythm irregularly irregular Heart sounds: S1 normal heart sound present, S2 normal heart sound present, no murmurs and no rubs Neuro General: patient oriented x3 Extrem General: Yes normal to inspection Psych Appearance: grossly normal Mental Status: mental status grossly normal Speech and movement: Normal speech and movement present Assessment & Plan Assessment & Plan (1) LOLY (obstructive sleep apnea): Code(s): G47.33 - Obstructive sleep apnea (adult) (pediatric) Category: Medical (2) (HFpEF) heart failure with preserved ejection fraction: Code(s): I50.30 - Unspecified diastolic (congestive) heart failure Category: Medical Qualifiers: Heart failure chronicity: unspecified Qualified Code(s): I50.30 - Unspecified diastolic (congestive) heart failure (3) Persistent atrial fibrillation: Code(s): I48.19 - Other persistent atrial fibrillation Category: Medical (4) Chronic hypercapnic respiratory failure: Code(s): J96.12 - Chronic respiratory failure with hypercapnia Category: Medical (5) Nocturnal hypoxia: Code(s): G47.34 - Idiopathic sleep related nonobstructive alveolar hypoventilation Category: Medical Plan in lab sleep study continue diuresis F/U after PSG Orders: Orders RT PSG in-lab sleep study Today G47.33 - Obstructive sleep apnea (adult) (pediatric) Coding Level of Care Code New Pt Level 4 (79755) Diagnoses LOLY (obstructive sleep apnea) G47.33 Heart failure with preserved ejection fraction, unspecified HF chronicity I50.30 Heart failure chronicity: unspecified Persistent atrial fibrillation I48.19 Chronic hypercapnic respiratory failure J96.12 Nocturnal hypoxia G47.34 Time Spent (min) 40
[2024-09-19 13:31] VITALS: BP 120/60; PULSE 68; O2SAT 94
--- OUTSIDE RECORDS SUMMARY | 2024-09-19 15:11 | XMS_ITS ---
Author Organization [facility] Address [address] [place] [address] Care Team Providers Care Network Systems Administrator Name Role Phone Tracy MENDEZ, Reji Primary Care Provider Unavailab Lianna Roque [phone] Encounters Encounter Location Date Provider Diagnosis [address] [address] 03/21/2024 Lianna Jacobo Plan Of Treatment Next Appt Details Provider Name:Lianna Jacobo , 11/17/2024 11:15:00 AM, [address] [place], [address], Progress Notes * RICARDOBianca STEVENS ADOB:[birth year] (79 yo F)Acc No.[id number]:03/21/2024 Progress Note Patient:?Bianca HUNT Provider:?Lianna Jacobo DPM :1945???Age:79 Y???Sex:Female D ate:03/21/2024 [address] [facility] [address] [place] Pcp:Reji Molina MD Subjective: * Chief Complaints: [...] Jacobo DPM Date:?2023 Generated for Josefina neri/Amanda/Reshma on:?09/19/2024 03:10 PM EDT
== END 2024-09-19 13:58 | disposition home or self-care (01) ==
LOC: HO.HPS 13:28
PROVIDERS: PCP Internal Medicine; Visit Provider Hospitalist
DX: G47.33 Obstructive sleep apnea (adult) (pediatric) (principal); I50.30 Unspecified diastolic (congestive) heart failure; I48.19 Other persistent atrial fibrillation; J96.12 Chronic respiratory failure with hypercapnia; G47.34 Idiopathic sleep related nonobstructive alveolar hypoventilation
CPT/HCPCS: 99204

== ENCOUNTER → 2024-09-19 13:28 | Outpatient (BNVA) | payer MEDICARE, SELFPAY | PROVIDERS: PCP Internal Medicine; Visit Provider Hospitalist | DX: G47.33 Obstructive sleep apnea (adult) (pediatric) (principal); G47.34 Idiopathic sleep related nonobstructive alveolar hypoventilation; J96.12 Chronic respiratory failure with hypercapnia; I48.19 Other persistent atrial fibrillation; I50.30 Unspecified diastolic (congestive) heart failure | CPT/HCPCS: 99202 ==

== ENCOUNTER 2024-10-03 10:17 | Outpatient (REF) | payer MEDICARE, SELFPAY ==
--- OUTSIDE RECORDS SUMMARY | 2024-03-21 10:45 | XMS_ITS ---
Author Organization [facility] Address [address] [place] [address] Care Team Providers Care Diplomatic Interpreter/Translator Name Role Phone Tracy MENDEZ, Reji Primary Care Provider Unavailab Lianna Roque [phone] Encounters Encounter Location Date Provider Diagnosis [address] [address] 03/21/2024 Lianna Jacobo Plan Of Treatment Next Appt Details Provider Name:Lianna Jacobo , 11/17/2024 11:15:00 AM, [address] [place], [address], Progress Notes * RICARDOBianca STEVENS ADOB:[birth year] (79 yo F)Acc No.[id number]:03/21/2024 Progress Note Patient: Bianca LIM Provider: Steve Jacobo DPM :1945 A ge:79 Y S ex:Female Date:03/21/2024 [facility] [facility] [place] [place] Pcp:Reji Molina MD Subjective: * Chief Complaints: [...] 05/22/2023 Generated for Printi ng/Faxing/eTransmitting on: 0 10/03/2024 11:26 AM EDT
[2024-10-03 13:15] LABS: Anion Gap 13 (12-20); Blood Urea Nitrogen 20 mg/dL (9-16); Calcium 9.6 mg/dL (8.4-10.2); Carbon Dioxide 31 mmol/L (22-29); Chloride 98 mmol/L (96-108); Estimated Glomerular Filt Rate 44; Glucose Random 321 mg/dL (60-115); Potassium 4.1 mmol/L (3.3-5.1); Sodium 138 mmol/L (135-145)
== END 2024-10-03 10:18 | disposition home or self-care (01) ==
LOC: HO.HMGCLDS 10:17
PROVIDERS: Visit Provider Internal Medicine Hypertension Specialist
DX: N18.9 Chronic kidney disease, unspecified (principal)
CPT/HCPCS: 36415; 80048

== ENCOUNTER 2024-10-10 11:11 | Outpatient (AMB) | payer MEDICARE, SELFPAY ==
--- OUTSIDE RECORDS SUMMARY | 2024-03-21 10:45 | XMS_ITS ---
Author Organization [facility] Address [address] [place] [address] Care Team Providers Care Paving Supervisor Name Role Phone Tracy MENDEZ, Reji Primary Care Provider Unavailab Lianna Roque [phone] Encounters Encounter Location Date Provider Diagnosis [address] [address] 03/21/2024 Lianna Jacobo Plan Of Treatment Next Appt Details Provider Name:Lianna Jacobo , 11/17/2024 11:15:00 AM, [address] [place], [address], Progress Notes * RICARDOBianca STEVENS ADOB:[birth year] (79 yo F)Acc No.[id number]:03/21/2024 Progress Note Patient: Bianca LIM Provider: Steve Jacobo DPM :1945 A ge:79 Y S ex:Female Date:03/21/2024 [facility] [facility] [place] [place] Pcp:Reji Molina MD Subjective: * Chief Complaints: * * Medical History: Objective: * Vitals: Assessment: Plan: * Treatment: * Images: * The named appointment provid er may or may not be the originator of this progress note, and it is not deemed complete until electronically signed by the appointment provider. Sign off status: Pending * Provider: Steve Jacobo DPM Date: 05/22/2023 Generated for Printi ng/Faxing/eTransmitting on: 0 10/10/2024 12:04 PM EDT
[2024-10-10 11:14] VITALS: BP 110/68; PULSE 92; O2SAT 92; BMI 29.8
--- NOTE | 2024-10-10 11:14 | HO.NEPHOV_ITS ---
Vital Signs 10/10/24 11:14 Height 5 ft 2 in Weight 163 lb BMI 29.8 BP 110/68 Blood Pressure Location Lt brachial Position Sitting Pulse 92 Pulse Source Pulse Oximeter Pulse Oximetry (%) 92 Oxygen Delivery Method Room Air Intake Visit Reasons: 4 month follow up/ Conf [facility] Operator Required: No Accompanied by: Daughter Allergies baclofen Adverse Reaction (Unknown, Verified 10/10/24 11:18) CONFUSION, OUT OF IT oxycodone (From Percocet) Adverse Reaction (Unknown, Verified 10/10/24 11:18) NAUSEA Medication List - Last Reconciled 10/10/24 by Roberto Murphy MD alprazolam 1 mg PO TID apixaban (Eliquis) 5 mg PO BID atorvastatin 40 mg PO BEDTIME blood sugar diagnostic (Contour Next Test Strips) As directed 3 times a day 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 meter (Contour Next One Meter) As directed 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 sensor (FreeStyle Sanjeev 3 Sensor device) As directed E11.8 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,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 gear,cont (FreeStyle Sanjeev 3 [place]) As directed E&M code 11.8 carbidopa-levodopa 25-100 mg 1 tab PO TID cholecalciferol (vitamin D3) 50 mcg PO DAILY cyanocobalamin (vitamin B-12) 1,000 mcg IM Q28D ferrous sulfate 325 mg PO DAILY furosemide (Lasix) 40 mg PO DAILY insulin degludec (Tresiba FlexTouch U-100 insulin) 38 units subcut DAILY lancets As directed levothyroxine 112 mcg PO DAILY 90 days losartan 50 mg PO DAILY 90 days metoprolol tartrate 25 mg PO BID Ozempic (semaglutide) 0.25 mg (0.368 mL) subcut QWEEK 28 days NS paroxetine HCl 40 mg PO DAILY pen needle, diabetic 4x daily HPI Comments Details: 78-year-old woman with longstanding hypertension diabetes mellitus with CKD. She is here for routine follow-up. REcently hospitalized for CHF Now on Lasix Supposed to take 40 mg QD But she has been taking 2 tabs a day Cr up to 1.5 from 1.2 This corresponds to the addition of Jardiance. Cr stays at 1.55 06/06/24 Feels better Losartan was decreased due to orthostasis Asymptomatic 10/10/24 The patient is a 79-year-old female presenting with chronic right-sided abdominal pain. The pain has persisted for over six months, initially resembling appendicitis, but imaging studies, including a CT scan in June, showed no significant findings. The pain worsens when lying on one side and sometimes radiates downwards, with heat providing some relief. The patient has a history of arthritis, confirmed by imaging showing age-related changes in the back. She experiences back pain, occasionally radiating down the leg, and uses Tylenol for pain management. The patient has stage 3 chronic kidney disease, with stable kidney function at approximately 45%. She adheres to a low-sodium diet but consumes frozen meals, which may contain hidden sodium. The patient experiences occasional constipation, managed with MiraLax, which is safe for her kidney condition. She is also on Ozempic for weight management, with a slight weight reduction noted. [facility] Medical History (Updated 09/19/24 @ 14:26 by David Reyes MD) Nocturnal hypoxia LOLY (obstructive sleep apnea) (HFpEF) heart failure with preserved ejection fraction CKD (chronic kidney disease) Pulmonary hypertension Atrial fibrillation Persistent atrial fibrillation CAD (coronary artery disease) Vitamin D deficiency HLD (hyperlipidemia) T2DM (type 2 diabetes mellitus) Acute exacerbation of congestive heart failure Hypertension Parkinson disease Hypothyroid Diabetes Surgical History Hx of cardiac cath (~01/2017) Hx of carpal tunnel repair Hx of knee surgery Hx of hysterectomy Family History Father No problems noted. Mother T2DM (type 2 diabetes mellitus) Brother T2DM (type 2 diabetes mellitus) Social History Household Members: None Housing: Condominium Do you presently have visiting nurse or other home services: No Alcohol intake: current Alcohol intake frequency: holidays/special occasions only Alcohol type: wine Patient Tobacco Use Status: Former Tobacco user Tobacco use type: Cigarette Second Hand Smoke Exposure: No Advance Directives Date on File: 03/22/20 service: No Current occupational status: retired Physical Exam Vital Signs: Last Vital Signs Pulse 92 10/10/24 11:14 BP 110/68 10/10/24 11:14 Pulse Ox 92 10/10/24 11:14 Oxygen Delivery Method Room Air 10/10/24 11:14 BMI result Body Mass Index 29.8 Const General: comfortable; No acute distress Orientation/consciousness: patient oriented x3 Eyes General: appearance normal, both eyes and all related structures Visual Goodwin: normal visual goodwin by confrontation Neck Neck: Yes supple and Yes no JVD Resp Effort & Inspection: normal respiratory effort and respiratory effort not decreased Auscultation: rhonchi Cardio Palpation: no palpable S3 and no palpable S4 Heart sounds: no rubs GI Inspection: Yes normal to inspection Palpation (GI): Soft to palpation Percussion: Yes normal to percussion Auscultation: normal bowel sounds General: Yes no CVA tenderness Back/Spine/Pelvis Back: no CVA tenderness Skin General skin exam: no petechiae and no purpura Neuro General: patient oriented x3 and no focal motor deficits Extrem General: No clubbing and No edema Results Reviewed Nephrology Results: Hgb, (12.0-16.0) 16.3 g/dl H 06/20/24 WBC, (4.8-10.8) 9.0 X10*3/uL 06/20/24 Plt Count, (160-400) 164 X10*3/uL 06/20/24 Sodium, (135-145) 138 mmol/L 10/03/24 Potassium, (3.3-5.1) 4.1 mmol/L 10/03/24 Chloride, (96-108) 98 mmol/L 10/03/24 Carbon Dioxide, (22-29) 31 mmol/L H 10/03/24 BUN, (9-16) 20 mg/dL H 10/03/24 Creatinine, (0.5-1.4) 1.18 mg/dL 10/03/24 Calcium, (8.4-10.2) 9.6 mg/dL 10/03/24 Urine Protein, (Neg-Trace) Negative mg/dL 06/20/24 Urine Creatinine 58.61 mg/dL 07/22/24 Assessment & Plan Assessment & Plan (1) CKD (chronic kidney disease): Comment: Mild CKD in a setting of hypertension diabetes mellitus renal function stay Code(s): N18.9 - Chronic kidney disease, unspecified Category: Medical Plan: Goal is to slow the progressionof the kidney disease No significant proteinuria Maintain A1c less than 7% Maintain blood pressure less than 130/80 Continue to avoid nephrotoxic agents including NSAIDs. Superimposed PREETI due to hypoperfusion Cr back to baseline (2) (HFpEF) heart failure with preserved ejection fraction: Code(s): I50.30 - Unspecified diastolic (congestive) heart failure Category: Medical Qualifiers: Heart failure chronicity: unspecified Qualified Code(s): I50.30 - Unspecified diastolic (congestive) heart failure Plan: Well compensated On Lasix Follow-up with cardiology as needed Discussed low-salt (3) Hypertension: Code(s): I10 - Essential (primary) hypertension Category: Medical Qualifiers: Hypertension type: unspecified Qualified Code(s): I10 - Essential (primary) hypertension Plan: Blood pressure well controlled No changes were made to her antihypertensive medications No orthostatic BP changes observed today Plan BackPain Most likely due to arthritis Follow up with PCP Orders: Orders Basic Metabolic Panel 6 Months I50.30 - Unspecified diastolic (congestive) heart failure, N18.9 - Chronic kidney disease, unspecified Coding Level of Care Code Est Pt Level 4 (62342) Diagnoses CKD (chronic kidney disease) N18.9 Heart failure with preserved ejection fraction, unspecified HF chronicity I50.30 Heart failure chronicity: unspecified Hypertension, unspecified type I10 Hypertension type: unspecified
== END 2024-10-10 11:34 | disposition home or self-care (01) ==
LOC: HO.HKA 11:12
PROVIDERS: PCP Internal Medicine; Visit Provider Internal Medicine Hypertension Specialist
DX: I12.9 Hypertensive chronic kidney disease with stage 1 through stage 4 chronic kidney disease, or unspecified chronic kidney disease (principal); N18.9 Chronic kidney disease, unspecified; I50.30 Unspecified diastolic (congestive) heart failure
CPT/HCPCS: 99214

== ENCOUNTER → 2024-10-10 11:11 | Outpatient (BNVA) | payer MEDICARE, SELFPAY | PROVIDERS: PCP Internal Medicine; Visit Provider Internal Medicine Hypertension Specialist | DX: E11.22 Type 2 diabetes mellitus with diabetic chronic kidney disease (principal); I12.9 Hypertensive chronic kidney disease with stage 1 through stage 4 chronic kidney disease, or unspecified chronic kidney disease; N18.30 Chronic kidney disease, stage 3 unspecified; I50.30 Unspecified diastolic (congestive) heart failure; Z79.899 Other long term (current) drug therapy | CPT/HCPCS: 99212 ==

== ENCOUNTER 2024-11-03 13:01 | Outpatient (AMB) | payer MEDICARE, SELFPAY ==
--- OUTSIDE RECORDS SUMMARY | 2024-03-21 10:45 | XMS_ITS ---
Author Organization [facility] Address [address] [place] [address] Care Team Providers Care Scanning Manager Name Role Phone Tracy MENDEZ, Reji Primary Care Provider Unavailab Lianna Roque [phone] Encounters Encounter Location Date Provider Diagnosis [address] [address] 03/21/2024 Lianna Jacobo Plan Of Treatment Next Appt Details Provider Name:Lianna Jacobo , 11/17/2024 11:15:00 AM, [address] [place], [address], Progress Notes * RICARDOBianca STEVENS ADOB:[birth year] (79 yo F)Acc No.[id number]:03/21/2024 Progress Note Patient: Bianca LIM Provider: Steve Jacobo DPM :1945 A ge:79 Y S ex:Female Date:03/21/2024 [facility] [facility] [place] Pcp:Reji Molina MD Subjective: * Chief Complaints: [...] 05/22/2023 Generated for Printi ng/Faxing/eTransmitting on: 0 11/03/2024 01:12 PM EDT
--- NOTE | 2024-11-03 13:02 | A.OFFPC_ITS ---
Vital Signs 11/03/24 13:08 11/03/24 16:05 Height 5 ft 0.87 in Weight 162 lb 4 oz BMI 30.8 BP 120/68 Blood Pressure Location Rt brachial Position Sitting Respiration 20 Pulse 68 Pulse Source Pulse Oximeter Temp 96.8 F Temp Source Temporal Artery Scan Pulse Oximetry (%) 88 L 93 Oxygen Delivery Method Room Air Room Air Intake Visit Reasons: establish care; vitamin B12 shot Deputy Sheriff Required: No Accompanied by: Daughter Allergies baclofen Adverse Reaction (Unknown, Verified 11/03/24 13:24) CONFUSION, OUT OF IT oxycodone (From Percocet) Adverse Reaction (Unknown, Verified 11/03/24 13:24) NAUSEA Medication List - Last Reconciled 11/03/24 by Rosalia Mohr PA-C alprazolam 1 mg PO BEDTIME apixaban (Eliquis) 5 mg PO BID atorvastatin 40 mg PO BEDTIME blood sugar diagnostic (Contour Next Test Strips) As directed 3 times a day 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 meter (Contour Next One Meter) As directed 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 sensor (FreeStyle Sanjeev 3 Sensor device) As directed E11.8 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,machine stemmer,cont (FreeStyle Sanjeev 3 Metter) As directed E&M code 11.8 carbidopa-levodopa 25-100 mg 1 tab PO TID cholecalciferol (vitamin D3) 50 mcg PO DAILY cyanocobalamin (vitamin B-12) 1,000 mcg IM Q28D ferrous sulfate 325 mg PO DAILY furosemide (Lasix) 40 mg PO DAILY insulin degludec (Tresiba FlexTouch U-100 insulin) 38 units subcut DAILY insulin lispro (Humalog KwikPen (U-100) Insulin) 7 units (0.07 mL) subcut TID 30 days lancets As directed levothyroxine 112 mcg PO DAILY 90 days losartan 50 mg PO DAILY 90 days metoprolol tartrate 25 mg PO BID paroxetine HCl 40 mg PO DAILY pen needle, diabetic 4x daily semaglutide (Ozempic) 0.5 mg (0.374 mL) subcut QWEEK 4 weeks Tobacco use date assessed: 11/03/24 Fall risk assessment: 1 Fall in past year Last assessed Fall Risk: 11/03/24 Dental Screening Dental Screen Date: 11/03/24 Did you have a dental visit in the last 12 months?: Yes Did you have a dental problem in the last 6 months where you did not have access to dental care?: No Was dental information given to patient?: Patient has dentist HPI establish care; vitamin B12 shot HPI Details The patient is a 79-year-old female presenting for a new patient appointment and management of multiple chronic conditions. The patient has a history of Diabetes Mellitus, with a recent A1c of 10.2, indicating poor glycemic control. She has been on Ozempic 0.25 mg weekly, which is considered a low dose, and there is a plan to increase the dose to improve glycemic control. The patient also uses Tresiba and will be started on Humalog for better management of blood glucose levels. The patient has Atrial Fibrillation and is on Eliquis as a blood thinner. She is also on atorvastatin for hyperlipidemia management. The patient has Parkinson's Disease and is on carbidopa-levodopa for management. She is under the care of a neurologist, Dr. Mattson, for this condition. The patient has been diagnosed with osteopenia, which increases her risk for fra ctures. She has not been started on Fosamax but is taking vitamin D supplements. The patient has a history of hypothyroidism and is on levothyroxine 112 mcg daily. Her thyroid levels were low, leading to a recent dose adjustment. Patient also on a lorazepam 1 tablet of 1 mg t.i.d. although reports she only uses it at bedtime therefore will reduce this dose to 1 tablet at bedtime. Patient understands agreeable to this. Patient also reports a history of vitamin B12 deficiency here for her vitamin B12 injection. She received it last month. She has it with her. [facility] Medical History (Updated 11/03/24 @ 16:11 by Rosalia Mohr PA-C) Obesity (BMI 30-39.9) Anxiety Osteopenia Type 2 diabetes mellitus with hemoglobin A1c goal of less than 7.0% Nocturnal hypoxia LOLY (obstructive sleep apnea) (HFpEF) heart failure with preserved ejection fraction CKD (chronic kidney disease) Pulmonary hypertension Atrial fibrillation Persistent atrial fibrillation CAD (coronary artery disease) Vitamin D deficiency HLD (hyperlipidemia) T2DM (type 2 diabetes mellitus) Acute exacerbation of congestive heart failure Hypertension Parkinson disease Hypothyroid Diabetes Surgical History Hx of cardiac cath (~01/2017) Hx of carpal tunnel repair Hx of knee surgery Hx of hysterectomy Family History Father No problems noted. Mother T2DM (type 2 diabetes mellitus) Brother T2DM (type 2 diabetes mellitus) Social History Household Members: None Housing: Apartment Alcohol intake: current Alcohol intake frequency: holidays/special occasions only Alcohol type: wine Patient Tobacco Use Status: Former Tobacco user Second Hand Smoke Exposure: No Advance Directives Date on File: 03/22/20 service: No Current occupational status: retired Cognitive needs: No Hearing needs: No Vision needs: Yes (rx glasses) Questionnaire PHQ-9 Over the last 2 weeks, how often have you been bothered by any of the following problems? 1. Little interest or pleasure in doing things: not at all 2. Feeling down, depressed, or hopeless: not at all 3. Trouble falling or staying asleep, or sleeping too much: not at all 4. Feeling tired or having little energy: not at all 5. Poor appetite or overeating: not at all 6. Feeling bad about yourself - or that you are a failure or have let yourself or your family down: not at all 7. Trouble concentrating on things, such as reading the newspaper or watching television: not at all 8. Moving or speaking so slowly that other people could have noticed. Or the opposite - being so fidgety or restless that you have been moving around a lot more than usual: not at all 9. Thoughts that you would be better off or of hurting yourself in some way: not at all Total score: 0 Depression Screening Interpretation: Negative Depression Screening Done: Yes 52618 - PHQ-9 Billing: Yes Source: Developed by Drs. Andi Zarate, Jenna Tellez, Giovanni Walton and colleagues, with an educational dandy from [employer]. Thrive Questionnaire Date Thrive assessed: 11/03/24 I am a: Patient What is your living situation today?: I have a steady place to live Within the past 12 months, did the food you bought not last and you didn't have the money to get more?: Never true Within the past 12 months, did you worry whether your food would run out before you got money to buy more?: Never true Do you have trouble paying for medicines?: No Do you have trouble getting transportation to medical appointments?: No Do you have trouble paying your heating and electricity bill?: No Do you have trouble taking care of your child, family member or friend?: No Do you have trouble with day-to-day activities such as bathing, preparing meals, shopping, managing finances, etc.?: No Are you currently unemployed and looking for a job?: No Are you interested in more education?: No Please select the resources that you would like help with: None Currently or been in a relationship where the following occur: No concerns reported THRIVE Score: 0 AUDIT C Alcohol Use Questionnaire (AUDIT-C) 1. How often do you have a drink containing alcohol?: Monthly or less 2. How many drinks containing alcohol do you have on a typical day when you are drinking?: 1 or 2 3. How often do you have six or more drinks on one occasion?: Never Total Score: 1 Score Reviewed/Action Taken: No CLEMENTE-7 AMB Questionnaire CLEMENTE-7 Date CLEMENTE - 7 assessed: 11/03/24 Feeling nervous, anxious, or on edge: 0 = Not at all Not being able to stop or control worryin = Not at all Worrying too much about different things: 0 = Not at all Trouble relaxin = Not at all Being so restless that it is hard to sit still: 0 = Not at all Becoming easily annoyed or irritable: 0 = Not at all Feeling afraid as if something awful might happen: 0 = Not at all Total CLEMENTE-7 score (0-4 normal; 5-9 mild; 10-14 moderate; 15-21 severe): 0 Source: Developed by Drs. Andi Zarate, Jenna Tellez, Giovanni Walton and colleagues, with an educational dandy from [employer]. CLEMENTE-7 Assessment Billing CLEMENTE-7 Assessment Tool: CLEMENTE-7 Assessment 78954 Review of Systems Const Details: - Respiratory: Reports low oxygen levels at times, uses supplemental oxygen at night. - Musculoskeletal: Reports discomfort in lower back, hip, and knee. Physical exam (Primary Care) Vital Signs: Last Vital Signs Temp 96.8 F 11/03/24 13:08 Pulse 68 11/03/24 13:08 Resp 20 11/03/24 13:08 BP 120/68 11/03/24 13:08 Pulse Ox 88 L 11/03/24 13:08 Oxygen Delivery Method Room Air 11/03/24 13:08 Care Plan Goal for BP management: <140/90 at Goal BMI result Body Mass Index 30.8 BMI Assessment/Plan discussion: High BMI High, discussed plan: lifestyle, weight reduction, dietary, physical activity and alcohol moderation Tobacco/Smoking Status: Tobacco use Status Tobacco use date assessed 11/03/24 11/03/24 13:07 Patient Tobacco Use Status Former Tobacco user 11/03/24 13:19 Tobacco use type 11/03/24 13:19 PHQ-9: PHQ-9 Score PHQ-9: Total score 0 11/03/24 13:36 Depression Screening Interpretation: Negative Thrive Assessment: Date of Thrive Assessment Date Thrive assessed 11/03/24 11/03/24 13:07 Currently or been in a relationship where the following occur: No concerns reported Const Other: Appearance: Alert. Oriented X3. No acute distress. Head: Normal external exam. Normocephalic. Atraumatic. Eyes: Pupils are equal, round, and reactive to light. Extraocular movements intact. Conjunctiva and sclera normal. Eyelids normal. Throat: Pharynx normal. Uvula midline. Moist mucous membranes. Neck: Normal inspection. Neck supple. Full range of motion. Cardiovascular: Normal heart rate and rhythm. Heart sound normal. No murmurs noted. Pulses normal throughout. Respiratory: No respiratory distress. Painless inspiration. Breath sounds normal. No wheezes/rales/rhonchi noted. Chest nontender. No accessory muscle usage noted or decreased air movement noted. Abdomen: Soft and nontender. Back: Full range of motion noted. Skin: Skin warm and dry. Normal skin color. Normal skin turgor. No r ashes/lesions/lacerations noted. Extremities: No lower extremity edema. Extremities exhibit normal range of motion. Neuro: Oriented X 3. No motor deficit. No sensory deficit. Reflexes normal. Results AMB Hemoglobin A1c AMB Hemoglobin A1c 10.2 % Last Edit by SMA David on 11/03/24 13:37 Results Reviewed Results Reviewed: Laboratory Last Values Hgb A1c (Clinic) 10.2 % (4.0-6.0) H 11/03/24 13:30 - Labs: A1c 10.2, indicating poor glycemic control. - Labs: Glucose 116 mg/dL in June, cholesterol 189 mg/dL, LDL 85 mg/dL, HDL 45 mg/dL. Coding Level of Care Code New Pt Level 4 (69821) Complex EM visit Add On G2211 Diagnoses Type 2 diabetes mellitus with hemoglobin A1c goal of less than 7.0% E11.9 Atrial fibrillation, chronic I48.20 Hyperlipidemia, unspecified hyperlipidemia type E78.5 Hyperlipidemia type: unspecified Parkinson disease G20 Osteopenia M85.80 Hypothyroidism, unspecified type E03.9 Hypothyroidism type: unspecified Anxiety F41.9 Obesity (BMI 30-39.9) E66.9 Additional Codes CLEMENTE-7 Assessment Billing - CLEMENTE-7 Assessment Tool: CLEMENTE-7 Assessment 21254 ([id number]) PHQ-9 - 63716 - PHQ-9 Billing: Yes ([id number]) Time Spent (min) 50 Assessment & Plan Assessment & Plan (1) Type 2 diabetes mellitus with hemoglobin A1c goal of less than 7.0%: Code(s): E11.9 - Type 2 diabetes mellitus without complications Category: Medical Plan: The patient's diabetes management plan includes increasing the dose of Ozempic to 0.5 mg and starting Humalog insulin before meals to improve glycemic control. The patient is advised to monitor blood glucose levels regularly and maintain a log for review at the next appointment. (2) Atrial fibrillation, chronic: Code(s): I48.20 - Chronic atrial fibrillation, unspecified Category: Medical Plan: The patient will continue on Eliquis for anticoagulation to manage atrial fibrillation. Condition is chronic and stable continue to monitor. (3) HLD (hyperlipidemia): Code(s): E78.5 - Hyperlipidemia, unspecified Category: Medical Qualifiers: Hyperlipidemia type: unspecified Qualified Code(s): E78.5 - Hyperlipidemia, unspecified Plan: The patient is on atorvastatin for hyperlipidemia management, with a focus on maintaining LDL levels below 70 mg/dL. Condition is chronic and stable continue to monitor. (4) Parkinson disease: Code(s): G20 - Parkinson's disease Category: Medical Plan: The patient will continue carbidopa-levodopa for Parkinson's Disease management and follow up with her neurologist, Dr. Mattson. Condition is chronic and stable continue to monitor. (5) Osteopenia: Code(s): M85.80 - Other specified disorders of bone density and structure, unspecified site Category: Medical Plan: The patient is advised to continue vitamin D supplementation and discuss the initiation of Fosamax with her earth science professor at the next visit. Condition is chronic and stable continue to monitor. (6) Hypothyroid: Code(s): E03.9 - Hypothyroidism, unspecified Category: Medical Qualifiers: Hypothyroidism type: unspecified Qualified Code(s): E03.9 - Hypothyroidism, unspecified Plan: The patient will continue on levothyroxine 112 mcg daily, with plans to recheck thyroid levels to ensure adequate control. Condition is chronic and stable will continue to monitor. (7) Anxiety: Code(s): F41.9 - Anxiety disorder, unspecified Category: Medical Plan: Patient is currently on alprazolam 1 mg t.i.d. although reports she only takes 1 mg at bedtime therefore will reduce her dose and prescription to alprazolam 1 mg at bedtime. Condition is chronic and stable continue to monitor. (8) Obesity (BMI 30-39.9): Code(s): E66.9 - Obesity, unspecified Category: Medical Plan: Patient to improve diet and exercise regimen. Condition is chronic and stable continue to monitor. Plan Plan Patient was informed and verbally consented to the use of an ambient scribe for clinic note documentation during this visit. 1. Diabetes Mellitus The patient's diabetes management plan includes increasing the dose of Ozempic to 0.5 mg and starting Humalog insulin before meals to improve glycemic control. The patient is advised to monitor blood glucose levels regularly and maintain a log for review at the next appointment. 2. Atrial Fibrillation The patient will continue on Eliquis for anticoagulation to manage atrial fibrillation. 3. Hyperlipidemia The patient is on atorvastatin for hyperlipidemia management, with a focus on maintaining LDL levels below 70 mg/dL. 4. Parkinson's Disease The patient will continue carbidopa-levodopa for Parkinson's Disease management and follow up with her neurologist, Dr. Mattson. 5. Osteopenia The patient is advised to continue vitamin D supplementation and discuss the initiation of Fosamax with her earth science professor at the next visit. 6. Hypothyroidism The patient will continue on levothyroxine 112 mcg daily, with plans to recheck thyroid levels to ensure adequate control. 7. Anxiety/insomnia Patient is currently on alprazolam 1 mg t.i.d. although reports she only takes 1 mg at bedtime therefore will reduce her dose and prescription to alprazolam 1 mg at bedtime. Condition is chronic and stable continue to monitor. During the visit, I discussed with the patient the importance of managing her diabetes through medication adjustments, including increasing Ozempic and starting Humalog insulin. We reviewed the risks associated with high blood sugar levels and the need for regular monitoring. I also explained the potential benefits of Fosamax for osteopenia and advised discussing this with her earth science professor. The patient was informed about the continuation of her current medications for atrial fibrillation, hyperlipidemia, Parkinson's Disease, and hypothyroidism. Orders: Orders TSH reflex Free T4 Today Z00.00 - Encounter for general adult medical examination without abnormal findings Magnesium Today Z00.00 - Encounter for general adult medical examination without abnormal findings Vitamin B12 and Folate Today Z00.00 - Encounter for general adult medical examination without abnormal findings Vitamin D 25-OH Total Today Z00.00 - Encounter for general adult medical examination without abnormal findings IRON PROFILE Today D64.9 - Anemia, unspecified Ferritin Today D64.9 - Anemia, unspecified AMB Hemoglobin A1c Today E11.9 - Type 2 diabetes mellitus without complications Medications: New semaglutide (Ozempic) 0.5 mg (0.374 mL) subcut QWEEK 1.496 mL 0RF 4 weeks insulin lispro (Humalog KwikPen (U-100) Insulin) 7 units (0.07 mL) subcut TID 6.3 mL 1RF 30 days Discontinued Ozempic (semaglutide) for 4 weeks Discontinued Reason: Doctor's Order 0.25 mg (0.368 mL) subcut QWEEK 28 days 3 mL 6RF NS Patient Instructions: - Increase Ozempic dose to 0.5 mg weekly and start Humalog insulin before meals. - Monitor blood glucose levels regularly and maintain a log for the next appointment. - Continue taking Eliquis, atorvastatin, carbidopa-levodopa, and levothyroxine as prescribed. - Discuss the initiation of Fosamax with your earth science professor at the next visit. - Schedule and complete blood work before the next appointment.
[2024-11-03 13:08] VITALS: BP 120/68; PULSE 68; RESP 20; TEMP 36; O2SAT 88; BMI 30.8
--- OUTSIDE RECORDS SUMMARY | 2024-11-03 13:12 | XMS_ITS | Clinical Summary ---
Author Organization [facility] Address [address] [place] [address] Phone Care Team Providers Care Roentgenology Teacher Name Role Phone Reji Molina MD Primary Care Provider [phone] Allergies Active Allergy Reactions Criticality Noted Date [...] Ye ars (1 of 2 - PCV) 1964 Diabetes: Hemoglobin A1C 05/13/2020 Diabetes: Ophthalmology Exam 05/13/2020 Diabetes: Pedal Pulse Checked 05/13/2020 Diabetes: Sensory Foot Exam 05/13/2020 Diabetes: Visual Foot Exam 05/13/2020 Influenza Vaccine (#1) 2024 Hepatitis B Vaccine Aged Out No longe r eligible based on patient's age to complete this topic Insurance [facility] Medicare Medicaid [place] Medicare [facility] Medicaid [place] Care Teams Roentgenology Teacher Relationship Specialty Start Date End Date Reji Molina MD [address] [place] [address] PCP - General 04/23/20
[2024-11-03 16:05] VITALS: O2SAT 93
== END 2024-11-03 13:58 | disposition home or self-care (01) ==
LOC: HO.HMCSH 13:01
PROVIDERS: PCP Internal Medicine; Visit Provider Physician Assistant Medical
DX: E11.9 Type 2 diabetes mellitus without complications (principal); I48.20 Chronic atrial fibrillation, unspecified; E78.5 Hyperlipidemia, unspecified; G20.A1 Parkinson's disease without dyskinesia, without mention of fluctuations; M85.80 Other specified disorders of bone density and structure, unspecified site; E03.9 Hypothyroidism, unspecified; F41.9 Anxiety disorder, unspecified; E66.9 Obesity, unspecified

== ENCOUNTER → 2024-11-03 13:01 | Outpatient (BNVA) | payer MEDICARE, SELFPAY | PROVIDERS: PCP Internal Medicine; Visit Provider Physician Assistant Medical | DX: E11.9 Type 2 diabetes mellitus without complications (principal); I48.20 Chronic atrial fibrillation, unspecified; E78.5 Hyperlipidemia, unspecified; G20.C Parkinsonism, unspecified; M85.80 Other specified disorders of bone density and structure, unspecified site; E03.9 Hypothyroidism, unspecified; F41.9 Anxiety disorder, unspecified; E66.9 Obesity, unspecified; Z68.30 Body mass index [BMI] 30.0-30.9, adult; Z71.3 Dietary counseling and surveillance | CPT/HCPCS: 83036; 96127; 99202 ==

== ENCOUNTER 2024-11-11 11:50 | Outpatient (REF) | payer MEDICARE, SELFPAY ==
--- OUTSIDE RECORDS SUMMARY | 2024-11-11 11:52 | XMS_ITS | Clinical Summary ---
Author Organization [facility] Address [address] [place] [address] Phone Care Team Providers Care Autism Tutor Name Role Phone Reji Molina MD Primary Care Provider [phone] Allergies Active Allergy Reactions Criticality Noted Date [...] patient's age to complete this topic Insurance [facility] Medicare Medicaid [place] Medicare [facility] Medicaid [place] Care Teams Autism Tutor Relationship Specialty Start Date End Date Reji Molina MD [address] [place] [address] PCP - General 04/23/20
== END 2024-11-11 11:51 | disposition home or self-care (01) ==
LOC: HO.MAMMO 11:50
PROVIDERS: PCP Internal Medicine; Visit Provider Internal Medicine
DX: Z12.31 Encounter for screening mammogram for malignant neoplasm of breast (principal)
CPT/HCPCS: 77063; 77067

== ENCOUNTER → 2024-11-11 12:00 | Outpatient (BNV) | payer MEDICARE, SELFPAY | PROVIDERS: PCP Internal Medicine; Visit Provider Internal Medicine | DX: Z12.31 Encounter for screening mammogram for malignant neoplasm of breast (principal) | CPT/HCPCS: 77063; 77067 ==

== ENCOUNTER 2024-11-14 14:36 | Outpatient (AMB) | payer MEDICARE, SELFPAY ==
--- OUTSIDE RECORDS SUMMARY | 2024-03-21 10:45 | XMS_ITS ---
Author Organization [facility] Address [address] [place] [address] Care Team Providers Care Music Executive Name Role Phone Tracy MENDEZ, Reji Primary Care Provider Unavailab Lianna Roque [phone] Encounters Encounter Location Date Provider Diagnosis [address] [address] 03/21/2024 Lianna Jacobo Plan Of Treatment Next Appt Details Provider Name:Lianna Jacobo , 11/17/2024 11:15:00 AM, [address] [place], [address], Progress Notes * Bianca HUNT ADOB:[birth year] (79 yo F)Acc No.[id number]:03/21/2024 Progress Note Patient: Bianca LIM Provider: Steve Jacobo DPM :1945 A ge:79 Y S ex:Female Date:03/21/2024 [facility] [facility] [place] [place] Pcp:Reji Molina MD Subjective: * Chief Complaints: [...] 05/22/2023 Generated for Printi ng/Faxing/eTransmitting on: 0 11/14/2024 02:39 PM EDT
--- OUTSIDE RECORDS SUMMARY | 2024-11-14 14:39 | XMS_ITS | Clinical Summary ---
Author Organization [facility] Address [address] [facility] [address] Phone Care Team Providers Care Carousel Operator Name Role Phone Reji Molina MD Primary Care Provider [phone] Allergies Active Allergy Reactions Criticality Noted Date [...] patient's age to complete this topic Insurance [facility] Medicare Medicaid [place] Medicare [facility] Medicaid [place] Care Teams Carousel Operator Relationship Specialty Start Date End Date Reji Molina MD [address] [place] [address] PCP - General 04/23/20
--- NOTE | 2024-11-14 14:48 | MHC.OFFVIS ---
Intake Visit Reasons: PD and facial pain Allergies baclofen Adverse Reaction (Unknown, Verified 11/14/24 14:52) CONFUSION, OUT OF IT oxycodone (From Percocet) Adverse Reaction (Unknown, Verified 11/14/24 14:52) NAUSEA Medication List - Last Reconciled 11/14/24 by Lori South, BOWEN alprazolam 1 mg PO TID apixaban (Eliquis) 5 mg PO BID atorvastatin 40 mg PO BEDTIME blood sugar diagnostic (Contour Next Test Strips) As directed 3 times a day 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 meter (Contour Next One Meter) As directed 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 sensor (FreeStyle Sanjeev 3 Sensor device) As directed E11.8 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,baggage and mail agent,cont (FreeStyle Sanjeev 3 [place]) As directed E&M code 11.8 carbidopa-levodopa 25-100 mg 1 tab PO TID cholecalciferol (vitamin D3) 50 mcg PO DAILY cyanocobalamin (vitamin B-12) 1,000 mcg IM Q28D empagliflozin (Jardiance) 25 mg PO DAILY ferrous sulfate 325 mg PO DAILY furosemide (Lasix) 40 mg PO DAILY insulin degludec (Tresiba FlexTouch U-100 insulin) 38 units subcut DAILY insulin lispro (Humalog KwikPen (U-100) Insulin) 7 units (0.07 mL) subcut TID 90 days lancets As directed levothyroxine 137 mcg PO DAILY losartan 50 mg PO DAILY 90 days metoprolol tartrate 25 mg PO BID paroxetine HCl 40 mg PO DAILY pen needle, diabetic 4x daily semaglutide (Ozempic) 0.5 mg (0.374 mL) subcut QWEEK 4 weeks HPI Comments Details: 79-year-old woman with HTN, HLD, DM, atrial fibb, parkinsonism, and right sided facial pain. She was doing okay. Right sided facial pain was still there. It was there almost every day, but it would come and go. It may stay for couple of hours when she would put ice or heat on her face which helped some. Pain was sharp and could be triggered by eating on that side. Pain was on the right jaw and the tooth problem was of the upper jaw. She tried to eat with front teeth. She did not remember trying carbamazepine. Tremor was stable. Mobility was okay. No difficulty turning in bed or getting up from chair. [facility] Medical History (Updated 11/14/24 @ 14:52 by Lori South CNP) Insomnia Cerebellar atrophy Cerebral microvascular disease Peripheral neuropathy History of mammogram (~11/06/23) Obesity (BMI 30-39.9) Anxiety Osteopenia Type 2 diabetes mellitus with hemoglobin A1c goal of less than 7.0% Nocturnal hypoxia LOLY (obstructive sleep apnea) (HFpEF) heart failure with preserved ejection fraction CKD (chronic kidney disease) Pulmonary hypertension Atrial fibrillation Persistent atrial fibrillation CAD (coronary artery disease) Vitamin D deficiency HLD (hyperlipidemia) T2DM (type 2 diabetes mellitus) Acute exacerbation of congestive heart failure Hypertension Parkinson disease Hypothyroid Diabetes Surgical History Hx of cardiac cath (~01/2017) Hx of carpal tunnel repair Hx of knee surgery Hx of hysterectomy Family History Father No problems noted. Mother T2DM (type 2 diabetes mellitus) Brother T2DM (type 2 diabetes mellitus) Social History Household Members: None Housing: Apartment Alcohol intake: current Alcohol intake frequency: holidays/special occasions only Alcohol type: wine Patient Tobacco Use Status: Former Tobacco user Second Hand Smoke Exposure: No Advance Directives Date on File: 03/22/20 service: No Current occupational status: retired Cognitive needs: No Hearing needs: No Vision needs: Yes (rx glasses) Review of Systems Const Denies chills, Denies daytime sleepiness, Reports difficulty sleeping, Denies fatigue, Denies fever(s), Denies frequent falls, Denies headache(s), Denies increased appetite, Denies poor appetite, Denies snoring, Denies weakness, Denies weight gain and Denies weight loss Eyes Denies loss of vision ENT Denies vertigo, Denies dizziness and Denies headache(s) Card Denies chest pain at rest, Denies chest pain with activity, Denies syncope, Denies leg edema and Denies palpitations Resp Denies snoring GI Denies constipation, Denies heartburn, Denies diarrhea and Denies nausea Denies urinary frequency, Denies urinary incontinence and Denies urinary urgency Musc Denies abnormal gait, Denies numbness and Denies tingling Skin/Breast Denies dry skin and Denies rash Neuro Denies abnormal gait, Denies vertigo, Denies dizziness, Denies syncope, Denies frequent falls, Denies headache(s), Denies lack of coordination, Denies loss of vision, Denies memory loss, Denies numbness, Denies restless legs, Denies seizure-like activity, Denies tingling, Denies paresthesias, Denies tremor(s) and Denies weakness Psych Denies anxiety, Denies depression, Denies auditory hallucinations, Denies memory loss, Denies visual hallucinations and Denies suicidal ideation Endo Denies fatigue and Denies palpitations Physical Exam Const Other: General Appearance:? normal, in no acute distress. Skin:? no rashes, no significant birthmarks. Heart:? S1, S2 normal, no murmurs. Lungs:? clear anteriorly and posteriorly. Extremities:? no edema. Psych:? alert, oriented, cognitive function intact, cooperative with exam. Neuro Other: Mental Status:?Normal attention, orientation, memory and affect.? Cranial Nerves:?Pupils are equal, round and reactive to light. External occular muscles are intact. Visual stiles are full. Face is symmetrical. Facial sensations are normal. Tongue is midline. Palate elevates symmetrically. Shoulder shrugging is normal. Hearing to bedside conversation is normal. Coordination:?No ataxia,?no titubation.? Gait Exam: Decreased arm swing. Cerebellar Signs:?Pktqwz-we-puay and ihyg-yr-tjlt is normal.? Extrapyramidal System:?Slightly decreased facial expression and blinking. Decreased arm swing. Mild hand resting tremor. Pronator Drift:?Not present.? Involuntary Movements:?Mild hand and chin resting tremor. Speech:?Mild speech tremor.? Results Reviewed Results Reviewed: [place] [facility] [place]: Mild cerebral and cerebelar atrophy with mild MVD EMG/NCS LEs at office in 2018: WNL Assessment & Plan Assessment & Plan (1) Parkinson disease: Code(s): G20 - Parkinson's disease Category: Medical Qualifiers: Dyskinesia presence: without dyskinesia Fluctuating manifestations: without fluctuating manifestations Qualified Code(s): G20.A1 - Parkinson's disease without dyskinesia, without mention of fluctuations Plan: Continue carbidopa-levodopa 25-100mg 1 tablet three times a day. (2) Facial pain: Code(s): R51.9 - Headache, unspecified Category: Medical Plan: She did not recall trying carbamazepine. Carbamazepine may decrease Eliquis levels. Start gabapentin 1 tablet at bedtime, use/side effects reviewed. Medications: New gabapentin 300 mg PO BEDTIME 30 caps 5RF 30 days Coding Level of Care Code Est Pt Level 4 (64505) Diagnoses Parkinson's disease without dyskinesia or fluctuating manifestations G20.A1 Dyskinesia presence: without dyskinesia Fluctuating manifestations: without fluctuating manifestations Facial pain R51.9
== END 2024-11-14 15:14 | disposition home or self-care (01) ==
LOC: HO.HSM 14:37
PROVIDERS: PCP Internal Medicine; Referring Provider Internal Medicine; Visit Provider Registered Nurse
DX: G20.A1 Parkinson's disease without dyskinesia, without mention of fluctuations (principal); R51.9 Headache, unspecified
CPT/HCPCS: 99214

== ENCOUNTER → 2024-11-14 14:36 | Outpatient (BNVA) | payer MEDICARE, SELFPAY | PROVIDERS: PCP Internal Medicine; Referring Provider Internal Medicine; Visit Provider Registered Nurse | DX: G20.A1 Parkinson's disease without dyskinesia, without mention of fluctuations (principal); R51.9 Headache, unspecified | CPT/HCPCS: 99212 ==

== ENCOUNTER 2024-11-15 09:59 | Outpatient (REF) | payer MEDICARE, SELFPAY ==
--- OUTSIDE RECORDS SUMMARY | 2024-03-21 10:45 | XMS_ITS ---
Author Organization [facility] Address [address] [place] [address] Care Team Providers Care Needle Maker Name Role Phone Tracy MENDEZ, Reji Primary Care Provider Unavailab Lianna Roque [phone] Encounters Encounter Location Date Provider Diagnosis [address] [address] 03/21/2024 Lianna Jacobo Plan Of Treatment Next Appt Details Provider Name:Lianna Jacobo , 11/17/2024 11:15:00 AM, [address] [place], [address], Progress Notes * RICARDOBianca STEVENS ADOB:[birth year] (79 yo F)Acc No.[id number]:03/21/2024 Progress Note Patient: Bianca LIM Provider: Steve Jacobo DPM :1945 A ge:79 Y S ex:Female Date:03/21/2024 [facility] [facility] [place] Pcp:Reji Molina MD Subjective: * Chief Complaints: [...] 05/22/2023 Generated for Printi ng/Faxing/eTransmitting on: 0 11/15/2024 10:30 AM EDT
--- OUTSIDE RECORDS SUMMARY | 2024-11-15 10:30 | XMS_ITS | Clinical Summary ---
Author Organization [facility] Address [address] [place] [address] Phone Care Team Providers Care Track Helper Name Role Phone Reji Molina MD Primary Care Provider [phone] Allergies Active Allergy Reactions Criticality Noted Date [...] patient's age to complete this topic Insurance [facility] Medicare Medicaid [place] Medicare [facility] Medicaid [place] Care Teams Track Helper Relationship Specialty Start Date End Date Reji Molina MD [address] [place] [address] PCP - General 04/23/20
[2024-11-15 14:09] LABS: Iron 122 mcg/dL (30-160); Magnesium 2.1 mg/dL (1.6-2.6); Percent Iron Saturation 55 % (15-50); Total Iron Binding Capacity 222 mcg/dL (228-428); Unsaturated Iron Binding 100 ug/dL
[2024-11-15 14:28] LABS: Ferritin 921 ng/mL (10-250)
[2024-11-15 14:32] LABS: Folate 12.5 ng/mL (> or = 4.0); Vitamin B12 604 pg/mL (200-900)
== END 2024-11-15 10:00 | disposition home or self-care (01) ==
LOC: HO.HMGCLDS 09:59
PROVIDERS: PCP Physician Assistant Medical; Visit Provider Physician Assistant Medical
DX: Z00.00 Encounter for general adult medical examination without abnormal findings (principal); D64.9 Anemia, unspecified
CPT/HCPCS: 36415; 82306; 82607; 82728; 82746; 83540; 83735; 84443

== ENCOUNTER 2024-12-08 13:21 | Outpatient (AMB) | payer MEDICARE, SELFPAY ==
--- NOTE | 2024-12-08 13:33 | A.OFFPC_ITS ---
Vital Signs 12/08/24 13:36 Height 5 ft 0.87 in Weight 162 lb 2 oz BMI 30.8 BP 99/56 L Blood Pressure Location Rt femoral Position Sitting Respiration 16 Pulse 80 Pulse Source Pulse Oximeter Temp 97 F Temp Source Temporal Artery Scan Pulse Oximetry (%) 94 Oxygen Delivery Method Room Air Intake Visit Reasons: week follow up Cold Roller Required: No Accompanied by: Daughter Allergies baclofen Adverse Reaction (Unknown, Verified 12/08/24 17:26) CONFUSION, OUT OF IT oxycodone (From Percocet) Adverse Reaction (Unknown, Verified 12/08/24 17:26) NAUSEA Medication List - Last Reconciled 12/08/24 by Rosalia Mohr PA-C alprazolam 1 mg PO TID apixaban (Eliquis) 5 mg PO BID atorvastatin 40 mg PO BEDTIME blood sugar diagnostic (Contour Next Test Strips) As directed 3 times a day 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 meter (Contour Next One Meter) As directed 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 sensor (FreeStyle Sanjeev 3 Sensor device) As directed E11.8 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,supervisor microwave,cont (FreeStyle Sanjeev 3 [place]) As directed E&M code 11.8 carbidopa-levodopa 25-100 mg 1 tab PO TID cholecalciferol (vitamin D3) 50 mcg PO DAILY cyanocobalamin (vitamin B-12) 1,000 mcg IM Q28D ferrous sulfate 325 mg PO DAILY furosemide (Lasix) 40 mg PO DAILY gabapentin 300 mg PO BEDTIME 30 days insulin degludec (Tresiba FlexTouch U-100 insulin) 38 units subcut DAILY insulin lispro (Humalog KwikPen (U-100) Insulin) 7 units (0.07 mL) subcut TID 90 days lancets As directed levothyroxine 112 mcg PO DAILY losartan 50 mg PO DAILY 90 days metoprolol tartrate 25 mg PO BID paroxetine HCl 40 mg PO DAILY pen needle, diabetic 4x daily semaglutide (Ozempic) 0.5 mg (0.374 mL) subcut QWEEK 4 weeks Tobacco use date assessed: 11/03/24 Fall risk assessment: 1 Fall in past year Last assessed Fall Risk: 11/03/24 Dental Screening Dental Screen Date: 11/03/24 Did you have a dental visit in the last 12 months?: Yes Did you have a dental problem in the last 6 months where you did not have access to dental care?: No Was dental information given to patient?: Patient has dentist HPI week follow up HPI Details The patient is a 79-year-old female presenting for her B12 injection, hypotension, iron overload, and diabetes mellitus management. The hypotension was noted during the visit with a blood pressure reading of 99/56 mmHg. The patient does not have a home blood pressure monitor, and it is unclear if this is a consistent issue at home. The physician plans to prescribe a blood pressure cuff for home monitoring. The patient has a history of elevated hemoglobin and hematocrit levels, leading to concerns about iron overload. The patient is currently on iron supplements, which may contribute to the elevated levels. The physician has referred the case to a senior fund accountant for further evaluation. The patient has a history of diabetes mellitus with an A1c of 10.2% as of October 2024. The patient was previously managed by an survey research professor who has since retired, leading to some confusion in diabetes management. The patient is currently on Triceva and Lispro for diabetes management, with recent episodes of hypoglycemia noted. The physician discussed adjusting the timing of Triceva administration to bedtime to better manage blood glucose levels. The patient reports neuropathic pain for which gabapentin has been prescribed by a neurologist. The patient has concerns about taking gabapentin due to potential interactions with Xanax, which she also takes at night. Social History - Family status: The patient is accompan ied by her daughter during visits, who assists with remembering medical information. - Exercise: The patient is encouraged to maintain regular meal times and engage in weight management strategies. [facility] Medical History (Updated 12/08/24 @ 17:33 by Rosalia Mohr PA-C) Neuropathic pain Iron overload B12 deficiency Insomnia Cerebellar atrophy Cerebral microvascular disease Peripheral neuropathy History of mammogram (~11/06/23) Obesity (BMI 30-39.9) Anxiety Osteopenia Type 2 diabetes mellitus with hemoglobin A1c goal of less than 7.0% Nocturnal hypoxia LOLY (obstructive sleep apnea) (HFpEF) heart failure with preserved ejection fraction CKD (chronic kidney disease) Pulmonary hypertension Atrial fibrillation Persistent atrial fibrillation CAD (coronary artery disease) Vitamin D deficiency HLD (hyperlipidemia) T2DM (type 2 diabetes mellitus) Acute exacerbation of congestive heart failure Hypertension Parkinson disease Hypothyroid Diabetes Surgical History Hx of cardiac cath (~01/2017) Hx of carpal tunnel repair Hx of knee surgery Hx of hysterectomy Family History Father No problems noted. Mother T2DM (type 2 diabetes mellitus) Brother T2DM (type 2 diabetes mellitus) Social History Household Members: None Housing: Apartment Alcohol intake: current Alcohol intake frequency: holidays/special occasions o nly Alcohol type: wine Patient Tobacco Use Status: Former Tobacco user Second Hand Smoke Exposure: No Advance Directives Date on File: 03/22/20 service: No Current occupational status: retired Cognitive needs: No Hearing needs: No Vision needs: Yes (rx glasses) Questionnaire PHQ-9 Over the last 2 weeks, how often have you been bothered by any of the following problems? 1. Little interest or pleasure in doing things: not at all 2. Feeling down, depressed, or hopeless: not at all 3. Trouble falling or staying asleep, or sleeping too much: not at all 4. Feeling tired or having little energy: not at all 5. Poor appetite or overeating: not at all 6. Feeling bad about yourself - or that you are a failure or have let yourself or your family down: not at all 7. Trouble concentrating on things, such as reading the newspaper or watching television: not at all 8. Moving or speaking so slowly that other people could have noticed. Or the opposite - being so fidgety or restless that you have been moving around a lot more than usual: not at all 9. Thoughts that you would be better off or of hurting yourself in some way: not at all Total score: 0 Depression Screening Interpretation: Negative Depression Screening Done: Yes 09789 - PHQ-9 Billing: Yes Source: Developed by Drs. Andi Zarate, Jenna Tellez, Giovanni Walton and colleagues, with an educational dandy from [employer]. Thrive Questionnaire Date Thrive assessed: 11/03/24 I am a: Patient What is your living situation today?: I have a steady place to live Within the past 12 months, did the food you bought not last and you didn't have the money to get more?: Never true Within the past 12 months, did you worry whether your food would run out before you got money to buy more?: Never true Do you have trouble paying for medicines?: No Do you have trouble getting transportation to medical appointments?: No Do you have trouble paying your heating and electricity bill?: No Do you have trouble taking care of your child, family member or friend?: No Do you have trouble with day-to-day activities such as bathing, preparing meals, shopping, managing finances, etc.?: No Are you currently unemployed and looking for a job?: No Are you interested in more education?: No Please select the resources that you would like help with: None Currently or been in a relationship where the following occur: No concerns reported THRIVE Score: 0 AUDIT C Alcohol Use Questionnaire (AUDIT-C) 1. How often do you have a drink containing alcohol?: Monthly or less 2. How many drinks containing alcohol do you have on a typical day when you are drinking?: 1 or 2 3. How often do you have six or more drinks on one occasion?: Never Total Score: 1 Score Reviewed/Action Taken: No CLEMENTE-7 AMB Questionnaire CLEMENTE-7 Date CLEMENTE - 7 assessed: 11/03/24 Feeling nervous, anxious, or on edge: 0 = Not at all Not being able to stop or control worryin = Not at all Worrying too much about different things: 0 = Not at all Trouble relaxin = Not at all Being so restless that it is hard to sit still: 0 = Not at all Becoming easily annoyed or irritable: 0 = Not at all Feeling afraid as if something awful might happen: 0 = Not at all Total CLEMENTE-7 score (0-4 normal; 5-9 mild; 10-14 moderate; 15-21 severe): 0 Source: Developed by Drs. Andi Zarate, Jenna Tellez, Giovanni Walton and colleagues, with an educational dandy from [employer]. CLEMENTE-7 Assessment Billing CLEMENTE-7 Assessment Tool: CLEMENTE-7 Assessment 02843 Review of Systems Const Details: - Cardiovascular: Reports low blood pressure. Denies chest pain or palpitations. - Endocrine: Reports episodes of hypoglycemia. Denies polyuria or polydipsia. - Neurological: Reports neuropathic pain. Denies headaches or dizziness. All systems reviewed & are unremarkable except as noted in HPI and below Physical exam (Primary Care) Vital Signs: Last Vital Signs Temp 97 F 12/08/24 13:36 Pulse 80 12/08/24 13:36 Resp 16 12/08/24 13:36 BP 99/56 L 12/08/24 13:36 Pulse Ox 94 12/08/24 13:36 Oxygen Delivery Method Room Air 12/08/24 13:36 Care Plan Goal for BP management: <140/90 at Goal BMI result Body Mass Index 30.8 BMI Assessment/Plan discussion: High BMI High, discussed plan: lifestyle, weight reduction, dietary, physical activity, alcohol moderation and other Tobacco/Smoking Status: Tobacco use Status Tobacco use date assessed 11/03/24 12/08/24 13:41 Patient Tobacco Use Status Former Tobacco user 12/08/24 13:41 Tobacco use type 11/03/24 13:58 PHQ-9: PHQ-9 Score PHQ-9: Total score 0 12/08/24 14:10 Depression Screening Interpretation: Negative Thrive Assessment: Date of Thrive Assessment Date Thrive assessed 11/03/24 12/08/24 13:41 Currently or been in a relationship where the following occur: No concerns reported Const Other: Appearance: Alert. Oriented X3. No acute distress. Head: Normal external exam. Normocephalic. Atraumatic. Eyes: Pupils are equal, round, and reactive to light. Extraocular movements intact. Conjunctiva and sclera normal. Eyelids normal. Throat: Pharynx normal. Uvula midline. Moist mucous membranes. Neck: Normal inspection. Neck supple. Full range of motion. Cardiovascular: Normal heart rate and rhythm. Heart sound normal. No murmurs noted. Pulses normal throughout. Respiratory: No respiratory distress. Painless inspiration. Breath sounds normal. No wheezes/rales/rhonchi noted. Chest nontender. No accessory muscle usage noted or decreased air movement noted. Abdomen: Soft and nontender. No distention noted. Back: No costovertebral angle tenderness. Full range of motion noted. Skin: Skin warm and dry. Normal skin color. Normal skin turgor. No rashes/lesions/lacerations noted. Extremities: No lower extremity edema. Extremities exhibit normal range of motion. Neuro: Oriented X 3. No motor deficit. No sensory deficit. Reflexes normal. Office Procedures Injection-Therapetic B12 injection 1 mL given in to left deltoid. Patient tolerated procedure well. No complications. Patient brought in B12 from the pharmacy. Results Reviewed Results Reviewed: - Labs: Hemoglobin 16.3 g/dL, elevated hemoglobin and hematocrit levels noted. - Labs: A1c 10.2% as of October 2024. Coding Level of Care Code Est Pt Level 4 (20316) Complex EM visit Add On G2211 Diagnoses B12 deficiency E53.8 Low blood pressure I95.9 Iron overload E83.19 Type 2 diabetes mellitus with hemoglobin A1c goal of less than 7.0% E11.9 Neuropathic pain M79.2 Additional Codes CLEMENTE-7 Assessment Billing - CLEMENTE-7 Assessment Tool: CLEMENTE-7 Assessment 08422 ([id number]) PHQ-9 - 57928 - PHQ-9 Billing: Yes ([id number]) Time Spent (min) 55 Assessment & Plan Assessment & Plan (1) B12 deficiency: Code(s): E53.8 - Deficiency of other specified B group vitamins Category: Medical Plan: B12 injection given at this time. Patient brought medication from pharmacy. Given to left deltoid 1 mL patient tolerated procedure well no complications. (2) Low blood pressure: Code(s): I95.9 - Hypotension, unspecified Category: Medical Plan: The patient presented with hypotension, with a blood pressure reading of 99/56 mmHg during the visit. It was suggested that the patient monitor her blood pressure at home, and a prescription for a blood pressure cuff was considered. (3) Iron overload: Code(s): E83.19 - Other disorders of iron metabolism Category: Medical Plan: The patient has elevated hemoglobin and hematocrit levels, raising concerns about iron overload. The patient is currently taking iron supplements, which may be contributing to these elevated levels. A referral to a senior fund accountant was made for further evaluation and management. (4) Type 2 diabetes mellitus with hemoglobin A1c goal of less than 7.0%: Code(s): E11.9 - Type 2 diabetes mellitus without complications Category: Medical Plan: The patient has a history of diabetes mellitus with an A1c of 10.2% as of October 2024. The patient is currently on Tresiba and Lispro for diabetes management, with recent episodes of hypoglycemia noted. The physician recommended adjusting the timing of Tresiba administration to bedtime to better manage blood glucose levels. (5) Neuropathic pain: Code(s): M79.2 - Neuralgia and neuritis, unspecified Category: Medical Plan: The patient reports neuropathic pain and has been prescribed gabapentin by a neurologist. The patient expressed concerns about taking gabapentin due to potential interactions with Xanax, which she also takes at night. The physician advised against taking gabapentin and Xanax together due to the risk of sedation and falls. Plan Plan Patient was informed and verbally consented to the use of an ambient scribe for clinic note documentation during this visit. 1. Hypotension The patient presented with hypotension, with a blood pressure reading of 99/56 mmHg during the visit. It was suggested that the patient monitor her blood pressure at home, and a prescription for a blood pressure cuff was considered. 2. Iron Overload The patient has elevated hemoglobin and hematocrit levels, raising concerns about iron overload. The patient is currently taking iron supplements, which may be contributing to these elevated levels. A referral to a senior fund accountant was made for further evaluation and management. 3. Diabetes Mellitus The patient has a history of diabetes mellitus with an A1c of 10.2% as of October 2024. The patient is currently on Triceva and Lispro for diabetes management, with recent episodes of hypoglycemia noted. The physician recommended adjusting the timing of Triceva administration to bedtime to better manage blood glucose levels. 4. Neuropathic Pain The patient reports neuropathic pain and has been prescribed gabapentin by a neurologist. The patient expressed concerns about taking gabapentin due to potential interactions with Xanax, which she also takes at night. The physician advised against taking gabapentin and Xanax together due to the risk of sedation and falls. During the visit, I discussed the patient's hypotension and the importance of monitoring blood pressure at home. I also addressed the elevated hemoglobin and hematocrit levels, suggesting a referral to a senior fund accountant to evaluate potential iron overload. For diabetes management, I recommended adjusting the timing of Triceva administration to bedtime to better control blood glucose levels. Additionally, I advised the patient on the risks of taking gabapentin and Xanax together, emphasizing the potential for sedation and falls. Patient Instructions: - Monitor blood pressure at home and report any persistent low readings. - Follow up with the senior fund accountant regarding iron levels. - Adjust Triceva administration to bedtime to help manage blood glucose levels. - Avoid taking gabapentin and Xanax together to prevent sedation and risk of falls.
[2024-12-08 13:36] VITALS: BP 99/56; PULSE 80; RESP 16; TEMP 36.1; O2SAT 94; BMI 30.8
--- OUTSIDE RECORDS SUMMARY | 2024-12-08 14:02 | XMS_ITS | Clinical Summary ---
Author Organization [facility] Address [address] [place] [address] Phone Care Team Providers Care Ethylbenzene Cracking Supervisor Name Role Phone Reji Molina MD Primary Care Provider [phone] Allergies Active Allergy Reactions Criticality Noted Date [...] Medicare [facility] Medicaid [place] Care Teams Ethylbenzene Cracking Supervisor Relationship Specialty Start Date End Date Reji Molina MD [address] [place] [address] PCP - General 04/23/20
--- OUTSIDE RECORDS SUMMARY | 2024-12-08 14:03 | XMS_ITS | Patient Health Record ---
Author Organization [facility] Address [address] [facility] [place] [place] [address] Care Team Providers Care Able Bodied Tankerman Name Role Phone David Mccarty Primary Care Provider [phone] DonnellLianna Unavailable [phone] Esthela Chapa Unavailable [phone] Allergies Allergen (clinical drug ingredient) Drug/Non Drug Allergy documented on EMR Reaction Allergy Type Onset Date Status acetaminophen / oxycodone Percocet Unknown Drug Allergy Active oxycodone oxyCODONE Unknown Drug Allergy Active Results Component Value Reference Range Notes HEMOGLOBIN A1C (GLYCOHEMOGLO BIN) Reviewed date:07/21/2024 01:45:58 PM Interpretation: Performing Lab: Notes/Report: HEMOGLOBIN A1C % (HH) 9.3 HEMOGLOBIN A1C (GLYCOHEMOGLO BIN) Reviewed date:11/17/2024 11:34:14 AM Interpretation: Performing Lab: Notes/Report: HEMOGLOBIN A1C % (HH) 10 Reason For Referral No Information Medications Medication SIG (Take, Route, Frequency, Duration) Notes Start Date End Date Status Eliquis Active John Contour Next Test Not-Taking Levothyroxine Sodium Active Aspirin Not-Taking Vitamin D3 Active Victoza Not-Taking Tresiba FlexTouch No t-Taking B12 Active Xanax Not-Taking HYDROcodone-Acetaminophen Not-Taking Cyanocobalamin Activ e Easy Touch Pen Martin Active PARoxetine HCl Activ e Extra-Depth Diabetic Shoes with 3 Pair Custom heat-molded multi-density innersoles . for 1 year . Dx: 250.61,735.4,701; Duration: . Not-Taking ALPRAZolam Active zzzExtra Depth Orthopedic Shoes (1 Pair) with Customized Heat Molded Multidensity Innersoles (3 Pair) . . . Dx: IDDM/Polyneuropathy (E10.42), Hammertoe Foot Deformity (M20.41,M20.42), Preulcerative Skin Lesion(s) (L85.1); Duration: . 08/15/2015 Not-Taking Levemir Not-Taking Imitrex Not-Taking Amlodipine & Diet Manage Prod Not-Taking Estradiol 0.625 MG 1 tablet Orally Reyna y for Three Weeks, 1 Week off; Duration: 30 day(s) Not-Taking Extra Depth Orthopedic Shoes (1 Pair) with Customized Heat Molded Multidensity Innersoles (3 Pair) as directed Dx: NIDDM/Polyneuropathy (E11.42), Hammertoe Foot Deformity (M20.41,M20.42), Preulcerative Skin Lesion(s) (L85.1 06/16/2022 Not-Taking HumaLOG Not-Taking Extra Depth Orthopedic Shoes (1 Pair) with Customized Heat Molded Multidensity Innersoles (3 Pair) as directed Dx: NIDDM/Polyneuropathy (E11.42), Hammertoe Foot Deformity (M20.41,M20.42), Preulcerative Skin Lesion(s) (L85.1 07/18/2024 Active Soma Not-Taking Jardiance Not-Taking Not-Taking Iron 325 (65 Fe) MG 1 tablet Orally Once a day; Duration: 30 day(s) Active Carbidopa-Levodopa N ot-Taking Atorvastatin Calcium 40 MG Oral; Duration: 90 Days Acti ve Urea 20 % 1 application to affected area as needed Externally Twice a day; Duration: 30 days 05/24/2013 Not-Taking Losartan Potassium A ctive Fioricet 50-325-40 MG 1 tablet as needed Orally every 4 hrs Not-Taking Tresiba 100 UNIT/ML as directed Subcutaneous Active Toujeo SoloStar Not- Taking Ammonium Lactate 12 % 1 application Externally to affected areas of dry skin to feet except for between the toes Twice a day; Duration: 30 days Active Ciclopirox Olamine 0.77 % 1 application Externally Twice a day; Duration: 30 days Active Zocor Not-Taking Night Splint AFO - L1930 1 wear at rest; Duration: 30 days Active zzzCompression Stockings 20-30mm Hg . . .; Duration: . Not-Takin g Metoprolol & Diet Manage Prod Active Meclizine HCl Not-Gray buchanan Furosemide Active Glimepiride 2 MG 1 tablet with breakf ast or the first main meal of the day Orally Once a day; Duration: 30 day(s) Not-Taking metFORMIN HCl Not-Ta chanel Simvastatin Not-Taki ng Vicodin occ Not-Taking Immunizations Vaccine Route Administration Date Status Comme nts Influenza Unknown 06/06/2015 Pending Influenza Unknown 08/15/2015 Refused Influenza Unknown 01/14/2018 Refused Influenza Unknown 02/11/2018 Administered Influenza Unknown 12/13/2018 Administered Influenza Unknown 12/13/2019 Administered Influenza Unknown 12/12/2020 Administered Influenza Unknown 12/22/2022 Administered Pneumococcal Unknown 06/06/2015 Pending COVID-19 Robert & Robert/Ayesha Unknown 04/12/2021 Administered First Dose: 07/07/2020 Social History Tobacco Use: Social History Observation [...] Problem Status W/U Status Risk Notes Problem Polyneuropathy due to type 2 diabetes mellitus (410765904) Type 2 diabetes mellitus with diabetic polyneuropathy (E11.42) Active confirmed Vital Signs Blood pressure diastolic 70 mm Hg 11/17/2024 Height 5 ft 2 in in 11/17/2024 Blood pressure systolic 120 mm Hg 11/17/2024 Weight 165 lbs 11/17/2024 BMI 30.18 kg/m2 11/17/2024 Procedures Procedure Date Ordered Date Performed Result Body Sit e 91728-HHRF SKIN LESIONS, OVER 4 04/18/2024 N/A 37987-UNSC NAIL(S) 04/18/2024 N/A 18834-YJHX SKIN LESIONS, OVER 4 07/18/2024 N/A 46453-QGLU NAIL(S) 07/18/2024 N/A 59364-AYCR SKIN LESIONS, OVER 4 11/17/2024 N/A 11453-HZET NAIL(S) 11/17/2024 N/A Encounters Encounter Location Date Provider Diagnosis [address] [address] 12/22/2023 Esthela Chapa Pain in joint involving right ankle and foot M25.571 ; Gout of left foot M10.9 ; Pain in joint involving left ankle and foot M25.572 and Type 1 diabetes mellitus with diabetic polyneuropathy E10.[address] [address] 04/18/2024 Lianna Black Plantar fasciitis of left foot M72.2 ; Type 2 diabetes mellitus with diabetic polyneuropathy E11.42 ; Pain in left foot M79.672 ; Calcaneal spur, left foot M77.32 ; Interstitial myositis of left foot M60.172 ; Bursitis of left foot M77.52 and Xerosis of skin L85.[address] [address] 07/18/2024 Lianna Black Plantar fasciitis of left foot M72.2 ; Other hammer toe(s) (acquired), right foot M20.41 ; Type 2 diabetes mellitus with diabetic polyneuropathy E11.42 ; Calcaneal spur, left foot M77.32 ; Interstitial myositis of left foot M60.172 ; Bursitis of left foot M77.52 ; Xerosis of skin L85.3 and Other hammer toe(s) (acquired), left foot M20.[address] [address] 11/17/2024 Lianna Black Type 2 diabetes mellitus with diabetic polyneuropathy E11.[address] [facility] [address] [place] [address] 12/21/2023 Lianna Black [address] [place] [address] 12/24/2023 Lianna Jacobo [facility] [address] [place] [address] 12/24/2023 [facility] [address] [place] [address] 03/21/2024 Lianna Jacobo [facility] [address] [address] 04/15/2024 Lianna Jacobo [facility] [address] [place] [address] 07/18/2024 Lianna Jacobo Assessments Encounter Date Diagnosis (ICD [...] fasciitis of left foot (ICD-10 - M72.2) 11/17/2024 Type 2 diabetes mellitus with diabetic polyneuropathy (ICD-10 - E11.42) 07/18/2024 Type 2 diabetes mellitus with diabetic [...] left foot (ICD-10 - M20.42) 12/22/2023 Other 11/17/2024 Other Plan Of Treatment Pending Test Test Name Order Date *Uric Acid, Serum 12/22/2023 *CBC With Differential/Platelet 12/22/19 C-Reactive Protein, Quant 12/22/2023 ESR 12/22/2023 X ray : Foot, left 3V 12/22/2023 52858-VGXJVLZ NAIL, 6 OR MORE 03/25/2011 74935-FCFQYRW NAIL, 6 OR MORE 06/13/2011 16018-PSHLZYS NAIL, 6 OR MORE 05/07/2012 83360-OGDQQAE NAIL, 6 OR MORE 08/13/2012 13205-ZTBOQES NAIL, 6 OR MORE 11/16/2012 05953-GSTEUES NAIL, 6 OR MORE 02/18/2013 51287-QUVSOVL NAIL, 6 OR MORE 05/24/2013 88439-UIGJPKX NAIL, 6 OR MORE 08/30/2013 66298-QUYOFAY NAIL, 6 OR MORE 02/02/2014 32709-NSFVAAW NAIL, 6 OR MORE 07/31/2014 95936-UHQAIPG NAIL, 6 OR MORE 12/04/2014 11077-Yitm Destruction, 1-14 03/25/2011 60628-Groh Destruction, 1-14 06/13/2011 72177-Mfcfqtvp Plate 06/13/2011 91405-Tenjcjeb Plate 05/07/2012 95882-Vsyanguv Plate 03/25/2011 89809-Qsbtylry Plate 12/04/2014 24531-Wtamcexk Plate 07/31/2014 50616-Dcmhrrpq Plate 02/02/2014 40395-Bwlcmjnh Plate 08/30/2013 73208-Enbmtjjg Plate 05/24/2013 80322-Uxksmhfg Plate 12/11/2016 32756-Hyyzuyyk Plate 03/25/2018 39441-Cjybjxgn Plate 11/19/2020 83215-Ojmrnjah Plate 06/10/2021 38524-Icjgcevt Plate Each Additional 41576-Zvgxqart Plate Each Additional 55749- Debride <25 sq cm 12/04/2014 54087- Debride <25 sq cm 08/05/2018 02457- Debride <25 sq cm 07/31/2014 48228 I&D ABSCESS- SIMPLE,SINGLE 016 15694 I&D ABSCESS- SIMPLE,SINGLE 016 51220- I&D ABSCESS-COMPLICATED,MULTI 07/2015 64514- I&D ABSCESS-COMPLICATED,MULTI , J0702- INJECT TENDON ORIGIN/INSER T 06/06/2015, J0702- INJECT TENDON ORIGIN/INSER T 04/16/2015, J0702- INJECT or DRAIN, JOINT/BUR SA 04/16/2015, J0702- INJECT or DRAIN, JOINT/BUR SA 06/06/2015 57061-CNJM SKIN LESIONS, OVER 4 11/20/19 21 07683-LAIQ SKIN LESIONS, OVER 4 07/27/19 21 45059-FFTK SKIN LESIONS, OVER 4 11/21/19 20 59930-LQTO SKIN LESIONS, OVER 4 02/27/20 20 47557-UAXM SKIN LESIONS, OVER 4 12/05/19 15 73250-ZDNC SKIN LESIONS, OVER 4 05/24/19 14 82562-NRMB SKIN LESIONS, OVER 4 08/31/19 14 91628-DZGM SKIN LESIONS, OVER 4 02/03/20 14 35003-BODZ SKIN LESIONS, OVER 4 08/01/19 15 05438-JQUQ SKIN LESIONS, OVER 4 08/14/19 13 62589-ONYV SKIN LESIONS, OVER 4 02/19/20 13 39815-UIMJ SKIN LESIONS, OVER 4 11/17/19 13 55661-XUSQ SKIN LESIONS, OVER 4 03/25/20 11 71888-GYVC SKIN LESIONS, OVER 4 05/07/19 13 78192-QJCL SKIN LESIONS, OVER 4 06/13/19 12 96517-JVAD SKIN LESIONS, OVER 4 06/10/19 22 09382-KLMC SKIN LESIONS, OVER 4 12/10/19 49643-SZHD SKIN LESIONS, OVER 4 06/17/19 23 71021-FZKG SKIN LESIONS, OVER 4 04/18/19 21237-FCKI SKIN LESIONS, OVER 4 12/23/19 46566-JTIR SKIN LESIONS, OVER 4 06/29/19 24 58457-LLMH SKIN LESIONS, OVER 4 11/18/19 68418-MGUU SKIN LESIONS, OVER 4 07/19/19 70159-CIVI SKIN LESIONS, 2 TO 4 03/25/20 18 14515-QGRU SKIN LESIONS, 2 TO 4 04/16/19 16 31947-PZBJ SKIN LESIONS, 2 TO 4 10/19/19 19 27763-DJSZ SKIN LESIONS, 2 TO 4 02/01/20 19 67958-YELV SKIN LESIONS, 2 TO 4 05/09/19 20 08835-OFMW SKIN LESIONS, 2 TO 4 08/15/19 20 45177-TYGC SKIN LESIONS, 2 TO 4 06/06/19 16 37944-ZDUI SKIN LESIONS, 2 TO 4 08/15/19 16 51315-KRRF SKIN LESIONS, 2 TO 4 12/10/19 16 61487-UKSH SKIN LESIONS, 2 TO 4 12/12/19 17 76763-AQQR SKIN LESIONS, 2 TO 4 01/15/20 18 04524-MCGS SKIN LESIONS, 2 TO 4 07/20/19 19 43170-UVBB NAIL(S) 07/19/2018 53625-HWZW NAIL(S) 03/25/2018 58279-PLMU NAIL(S) 01/14/2018 85851-ZZFY NAIL(S) 12/10/2015 24751-HSVX NAIL(S) 12/11/2016 37552-BEII NAIL(S) 08/15/2019 29176-OUSG NAIL(S) 05/09/2019 90419-UZNQ NAIL(S) 01/31/2019 12889-FXVG NAIL(S) 10/18/2018 92922-XPYS NAIL(S) 02/27/2020 88757-WUQF NAIL(S) 07/26/2020 96805-WAPJ NAIL(S) 11/19/2020 36031-BXBN NAIL(S) 06/10/2021 61620-DEYX NAIL(S) 06/16/2022 95542-OSKD NAIL(S) 12/09/2021 79542-KLIO NAIL(S) 06/29/2023 91654-RMJX NAIL(S) 12/22/2022 81659-WHRS NAIL(S) 04/18/2024 94266-LPBJ NAIL(S) 07/18/2024 37661-BOXO NAIL(S) 11/17/2024 G8526-KUVQQSAH DYSTROPHIC NAILS ANY # A8289-PLPPYIDG DYSTROPHIC NAILS ANY # I6978-UFFLXMCY DYSTROPHIC NAILS ANY # 02885 - Shave Biopsy of Skin Lesion 11/2018 Next Appt Details Provider Name:Lianna Jacobo , 03/20/2025 11:15:00 AM, [address] [place], [address], Insurance Providers Payer Name Payer Address Payer Phone Subscriber Number Group Number Insured Name Patient Relationship to Insured Coverage Start Date Coverage End Date Medicare [employer] [address] [place] [address] [id number] Bianca Hunt Self - patient is the insured [employer] [address] [place] [address] [id number] Bianca Hunt Self - patient is the insured Medical (General) History Medical History History ICD Code thyroid disorder psoriasis mumps measles hypertension headaches/migraines diabetic chicken pox back, hip, knee pain osteoarthritis Anxiety disorder sciatica meter put on arm for blood sugar Hallux valgus (acquired), right foot M20 .11 Hallux valgus (acquired), left foot M20. 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
== END 2024-12-08 14:40 | disposition home or self-care (01) ==
LOC: HO.HMCSH 13:21
PROVIDERS: PCP Physician Assistant Medical; Visit Provider Physician Assistant Medical
DX: E11.40 Type 2 diabetes mellitus with diabetic neuropathy, unspecified (principal); E53.8 Deficiency of other specified B group vitamins; I95.9 Hypotension, unspecified; E83.19 Other disorders of iron metabolism; M79.2 Neuralgia and neuritis, unspecified

== ENCOUNTER → 2024-12-08 13:21 | Outpatient (BNVA) | payer MEDICARE, SELFPAY | PROVIDERS: PCP Physician Assistant Medical; Visit Provider Physician Assistant Medical | DX: E53.8 Deficiency of other specified B group vitamins (principal); I95.9 Hypotension, unspecified; E11.9 Type 2 diabetes mellitus without complications; E83.19 Other disorders of iron metabolism; M79.2 Neuralgia and neuritis, unspecified | CPT/HCPCS: 96127; 99212 ==

== ENCOUNTER 2024-12-16 10:48 | Outpatient (AMB) | payer MEDICARE, SELFPAY ==
--- OUTSIDE RECORDS SUMMARY | 2023-12-28 07:15 | XMS_ITS ---
Author Organization [facility] Address [address] [place] [address] Care Team Providers Care No Bake Molder Name Role Phone David Mccarty Primary Care Provider [phone] Lianna Jacobo [phone] Encounters Encounter Location Date Provider Diagnosis [address] [address] 12/28/2023 Lianna Jacobo Plan Of Treatment Next Appt Details Provider Name:Lianna Jacobo , 03/20/2025 11:15:00 AM, [address] [place], [address], Progress Notes * Bianca HUNT ADOB:[birth year] (79 yo F)Acc No.[id number]:12/28/2023 Progress Note Patient: Bianca LIM Provider: Steve Jacobo DPM :1945 A ge:78 Y S ex:Female Date:12/28/2023 [facility] [facility] [place] Pcp:David Mccarty Subjective: * Chief Complaints: * [...] 12/28/2023 Generated for Josefina neri/Amanda/Reshma on: 0 12/16/2024 11:51 AM EDT
--- OUTSIDE RECORDS SUMMARY | 2024-03-21 10:45 | XMS_ITS ---
Author Organization [facility] Address [address] [place] [address] Care Team Providers Care Chemical Sprayer Name Role Phone David Mccarty Primary Care Provider Lianna Jacobo [phone] Encounters Encounter Location Date Provider Diagnosis [address] [address] 03/21/2024 Lianna Jacobo Plan Of Treatment Next Appt Details Provider Name:Lianna Jacobo , 03/20/2025 11:15:00 AM, [address] [place], [address], Progress Notes * Bianca HUNT ADOB:[birth year] (79 yo F)Acc No.[id number]:03/21/2024 Progress Note Patient: Bianca LIM Provider: Steve Jacobo DPM :1945 A ge:79 Y S ex:Female Date:03/21/2024 [facility] [facility] Pcp:David Mccarty Subjective: * Chief Complaints: * [...] Date: 05/22/2023 Generated for Josefina neri/Amanda/Reshma on: 0 12/16/2024 11:51 AM EDT
[2024-12-16 10:52] VITALS: BP 128/80; PULSE 79; TEMP 36.6; O2SAT 95; BMI 31.0
--- NOTE | 2024-12-16 10:52 | MHC.OFFWIV ---
Intake Vital Signs 12/16/24 10:52 Height 5 ft 1 in Weight 164 lb BMI 31.0 BP 128/80 Blood Pressure Location Rt brachial Position Sitting Pulse 79 Pulse Source Pulse Oximeter Temp 97.9 F Temp Source Oral Pulse Oximetry (%) 95 Oxygen Delivery Method Room Air Intake Visit Reasons: EP-cough, running nose Intake Note: pt presents with coughing, sinus congestion and watery eyes- pt reports that she got the flu vaccine 2 days ago Patient Tobacco Use Status: Former Tobacco user Allergies baclofen Adverse Reaction (Unknown, Verified 12/16/24 10:55) CONFUSION, OUT OF IT oxycodone (From Percocet) Adverse Reaction (Unknown, Verified 12/16/24 10:55) NAUSEA Do you need a note to return to daycare/school/sports/work: No HPI HPI Comments History of Present Illness Details History - The patient is a 79-year-old female presenting with a cough and sinus congestion x 2 days. - The cough began a couple of days ago following a flu vaccination received at a pharmacy. - The patient reports sinus congestion accompanying the cough. - There is no history of asthma or COPD, and the cough is starting to loosen up. - The patient denies shortness of breath and fever but reports excessive sweating. - The patient has experienced ear pain for over a year, initially thought to be due to wax accumulation. Physical Exam General: Cooperative, healthy appearing, comfortable and no acute distress Orientation/consciousness: Patient oriented x3 Limitations: No limitations Head: Normal to inspection Ears: Hearing impaired, external ears normal, EAC's with cerumen Nose: Normal external nose present, Normal nares present and No nasal discharge present Face and sinus: Normal facial exam and Sinuses tender in the maxillary region Mouth: Normal oral and palatal mucosa present and moist mucous membranes Throat: Yes tonsils normal, Yes uvula midline. Posterior oropharynx erythema, no exudates Eyes: Appearance normal, both eyes and all related structures Neck: Normal visual inspection, full ROM Respiratory: Clear to auscultation bilaterally. Normal respiratory effort, able to speak in complete sentences, not Actively coughing, no respiratory distress, not tachypneic, no tripod positioning and no use of accessory muscles Cardiovascular: Regular rate and rhythm. Normal S1 and S2 Skin: No rashes or lesions noted Neuro: Patient oriented x3 Extremities: Normal to inspection and Yes no clubbing, cyanosis or edema [facility] Medical History (Updated 12/16/24 @ 11:22 by Cira Lentz PA-C) Neuropathic pain Iron overload B12 deficiency Insomnia Cerebellar atrophy Cerebral microvascular disease Peripheral neuropathy History of mammogram (~11/06/23) Obesity (BMI 30-39.9) Anxiety Osteopenia Type 2 diabetes mellitus with hemoglobin A1c goal of less than 7.0% Nocturnal hypoxia LOLY (obstructive sleep apnea) (HFpEF) heart failure with preserved ejection fraction CKD (chronic kidney disease) Pulmonary hypertension Atrial fibrillation Persistent atrial fibrillation CAD (coronary artery disease) Vitamin D deficiency HLD (hyperlipidemia) T2DM (type 2 diabetes mellitus) Acute exacerbation of congestive heart failure Hypertension Parkinson disease Hypothyroid Diabetes Surgical History Hx of cardiac cath (~01/2017) Hx of carpal tunnel repair Hx of knee surgery Hx of hysterectomy Family History Father No problems noted. Mother T2DM (type 2 diabetes mellitus) Brother T2DM (type 2 diabetes mellitus) Social History Household Members: None Housing: Apartment Alcohol intake: current Alcohol intake frequency: holidays/special occasions only Alcohol type: wine Patient Tobacco Use Status: Former Tobacco user Second Hand Smoke Exposure: No Advance Directives Date on File: 03/22/20 service: No Current occupational status: retired Cognitive needs: No Hearing needs: No Vision needs: Yes (rx glasses) Review of Systems Const All systems reviewed & are unremarkable except as noted in HPI and below Physical Exam Vital Signs: Last Vital Signs Temp 97.9 F 12/16/24 10:52 Pulse 79 12/16/24 10:52 BP 128/80 12/16/24 10:52 Pulse Ox 95 12/16/24 10:52 Oxygen Delivery Method Room Air 12/16/24 10:52 BMI result Body Mass Index 31.0 Office Procedures Cerumen Removal From which ear canal was the cerumen removed: bilateral Removal: irrigation Notes: patient tolerated procedure well, no complications and ear canal clear 19874-Tmm Irrigation/Lavage Assessment & Plan Assessment & Plan (1) URI, acute: Code(s): J06.9 - Acute upper respiratory infection, unspecified Plan: Patient was informed and verbally consented to the use of an ambient scribe for clinic note documentation during this visit - VSS, pt well appearing and PE remarkable for posterior oropharynx erythema and cerumen impaction bilaterally. - Plan includes testing for influenza, COVID-19, and RSV due to current prevalence. - Recommended use of a decongestant and antihistamine, such as Rosemarie D. - Flushed ears to remove wax accumulation and improve hearing, TMs clear and normal bilaterally (2) Bilateral impacted cerumen: Code(s): H61.23 - Impacted cerumen, bilateral Plan: as above Orders: Orders SARS-CoV2/FLU/RSV Today R09.89 - Other specified symptoms and signs involving the circulatory and respiratory systems AMB Cerumen Removal Today H61.23 - Impacted cerumen, bilateral Coding Level of Care Code Est Pt Level 4 (83769) Diagnoses URI, acute J06.9 Bilateral impacted cerumen H61.23 CPT Codes Office Procedure - CPT: 70697-Arn Irrigation/Lavage ([id number])
--- OUTSIDE RECORDS SUMMARY | 2024-12-16 11:52 | XMS_ITS | Clinical Summary ---
Author Organization [facility] Address [address] [place] [address] Phone Care Team Providers Care Waste Management Engineer Name Role Phone Reji Molina MD Primary Care Provider [phone] Allergies Active Allergy Reactions Criticality Noted Date [...] this topic Insurance [facility] Medicare Medicaid [place] Medicare [facility] Medicaid [place] Care Teams Waste Management Engineer Relationship Specialty Start Date End Date Reji Molina MD [address] [place] [address] PCP - General 04/23/20
--- OUTSIDE RECORDS SUMMARY | 2024-12-16 11:52 | XMS_ITS | Patient Health Record ---
Author Organization [facility] Address [address] [facility] [place] [address] Care Team Providers Care Epic Cupid Analyst Name Role Phone David Mccarty Primary Care Provider DonnellLianna Unavailable [phone] Esthela Chapa Unavailable [phone] Allergies Allergen (clinical drug ingredient) Drug/Non Drug [...] Not-Taking Cyanocobalamin Activ e Easy Touch Pen Kathleen Active PARoxetine HCl Activ e Extra-Depth Diabetic [...] Polyneuropathy due to type 2 diabetes mellitus (146525130) Type 2 diabetes mellitus with diabetic polyneuropathy (E11.42) Active confirmed Vital Signs Blood pressure diastolic 70 mm Hg 11/17/2024 Height 5 ft 2 in in 11/17/2024 Blood pressure systolic 120 mm Hg 11/17/2024 Weight 165 lbs 11/17/2024 BMI 30.18 kg/m2 11/17/2024 Procedures Procedure Date Ordered Date Performed Result Body Sit e 63463-FCNP SKIN LESIONS, OVER 4 04/18/2024 N/A 04483-RBFJ NAIL(S) 04/18/2024 N/A 95618-KHVL SKIN LESIONS, OVER 4 07/18/2024 N/A 60597-IEXF NAIL(S) 07/18/2024 N/A 26234-PILK SKIN LESIONS, OVER 4 11/17/2024 N/A 08494-UTWP NAIL(S) 11/17/2024 N/A Encounters Encounter Location Date Provider Diagnosis [address] [address] 12/22/2023 Esthela Chapa Pain in joint involving right ankle and foot M25.571 ; Gout of left foot M10.9 ; Pain in joint involving left ankle and foot M25.572 and Type 1 diabetes mellitus with diabetic polyneuropathy E10.[address] [address] 04/18/2024 Lianna Black Plantar fasciitis of left foot M72.2 ; Type 2 diabetes mellitus with diabetic polyneuropathy E11.42 ; Pain in left foot M79.672 ; Calcaneal spur, left foot M77.32 ; Interstitial myositis of left foot M60.172 ; Bursitis of left foot M77.52 and Xerosis of skin L85.[address] [address] 07/18/2024 Lianna Black Plantar fasciitis of left foot M72.2 ; Other hammer toe(s) (acquired), right foot M20.41 ; Type 2 diabetes mellitus with diabetic polyneuropathy E11.42 ; Calcaneal spur, left foot M77.32 ; Interstitial myositis of left foot M60.172 ; Bursitis of left foot M77.52 ; Xerosis of skin L85.3 and Other hammer toe(s) (acquired), left foot M20.[address] [address] 11/17/2024 Lianna Black Type 2 diabetes mellitus with diabetic polyneuropathy E11.42 [facility] [address] [place] [address] 12/21/2023 Lianna Black [address] [address] 12/24/2023 Lianna Jacobo [facility] [address] [place] [address] 12/24/2023 Lianna [facility] [address] [place] [address] 03/21/2024 Lianna Jacobo [facility] [address] [address] 04/15/2024 Lianna Jacobo [facility] [address] [place] [address] 07/18/2024 Lianna Jacobo Assessments Encounter Date Diagnosis [...] X ray : Foot, left 3V 12/22/2023 17276-OHAMRNB NAIL, 6 OR MORE 03/25/2011 33381-FHAGTJB NAIL, 6 OR MORE 06/13/2011 18186-OMPNTSY NAIL, 6 OR MORE 05/07/2012 46456-BKTLGEQ NAIL, 6 OR MORE 08/13/2012 25898-DHVIEAN NAIL, 6 OR MORE 11/16/2012 10448-TQFGMEN NAIL, 6 OR MORE 02/18/2013 81501-QOCMZGB NAIL, 6 OR MORE 05/24/2013 34086-NOXWTZZ NAIL, 6 OR MORE 08/30/2013 65316-WXLLYEF NAIL, 6 OR MORE 02/02/2014 34371-AVSYGFW NAIL, 6 OR MORE 07/31/2014 96856-DPWUOTD NAIL, 6 OR MORE 12/04/2014 09584-Ebiy Destruction, 1-14 03/25/2011 97958-Fnvi Destruction, 1-14 06/13/2011 67840-Pewvzdir Plate 06/13/2011 42846-Qburnluz Plate 05/07/2012 85198-Etjuowle Plate 03/25/2011 85389-Lcmdsvlz Plate 12/04/2014 82241-Aokuhveh Plate 07/31/2014 33569-Tzzmetuy Plate 02/02/2014 64281-Mzyvdjft Plate 08/30/2013 74751-Czwluopi Plate 05/24/2013 83391-Tyuckncv Plate 12/11/2016 90382-Dicamwmy Plate 03/25/2018 29223-Efxumyut Plate 11/19/2020 52205-Uuyvkhph Plate 06/10/2021 96935-Vztsffhb Plate Each Additional 37818-Nbtaasca Plate Each Additional 68844- Debride <25 sq cm 12/04/2014 61969- Debride <25 sq cm 08/05/2018 16511- Debride <25 sq cm 07/31/2014 41723 I&D ABSCESS- SIMPLE,SINGLE 016 28823 I&D ABSCESS- SIMPLE,SINGLE 016 27100- I&D ABSCESS-COMPLICATED,MULTI 07/2015 82051- I&D ABSCESS-COMPLICATED,MULTI , J0702- INJECT TENDON ORIGIN/INSER T 06/06/2015, J0702- INJECT TENDON ORIGIN/INSER T 04/16/2015, J0702- INJECT or DRAIN, JOINT/BUR SA 04/16/2015, J0702- INJECT or DRAIN, JOINT/BUR SA 06/06/2015 59638-OBSK SKIN LESIONS, OVER 4 11/20/19 21 35031-BSSW SKIN LESIONS, OVER 4 07/27/19 21 53157-RDIL SKIN LESIONS, OVER 4 11/21/19 20 04478-EWHS SKIN LESIONS, OVER 4 02/27/20 20 04291-RTNR SKIN LESIONS, OVER 4 12/05/19 15 40303-XFFJ SKIN LESIONS, OVER 4 05/24/19 14 11787-UJWQ SKIN LESIONS, OVER 4 08/31/19 14 54212-MAFF SKIN LESIONS, OVER 4 02/03/20 14 37515-JPVJ SKIN LESIONS, OVER 4 08/01/19 15 42512-TVJV SKIN LESIONS, OVER 4 08/14/19 13 31256-HKUT SKIN LESIONS, OVER 4 02/19/20 13 95591-ZLQP SKIN LESIONS, OVER 4 11/17/19 13 49587-TOQO SKIN LESIONS, OVER 4 03/25/20 11 46963-XHLR SKIN LESIONS, OVER 4 05/07/19 13 47305-YPBZ SKIN LESIONS, OVER 4 06/13/19 12 74351-KBAM SKIN LESIONS, OVER 4 06/10/19 22 95342-KZHY SKIN LESIONS, OVER 4 12/10/19 19883-XNIT SKIN LESIONS, OVER 4 06/17/19 23 87536-VZCH SKIN LESIONS, OVER 4 04/18/19 52927-VWFJ SKIN LESIONS, OVER 4 12/23/19 16466-EBAL SKIN LESIONS, OVER 4 06/29/19 24 00930-NSVM SKIN LESIONS, OVER 4 11/18/19 40417-VSCD SKIN LESIONS, OVER 4 07/19/19 74436-HUDU SKIN LESIONS, 2 TO 4 03/25/20 18 11839-NWQH SKIN LESIONS, 2 TO 4 04/16/19 16 76259-AIXU SKIN LESIONS, 2 TO 4 10/19/19 19 94467-PCAV SKIN LESIONS, 2 TO 4 02/01/20 19 55253-VOPM SKIN LESIONS, 2 TO 4 05/09/19 20 09738-GZWC SKIN LESIONS, 2 TO 4 08/15/19 20 20026-KOGG SKIN LESIONS, 2 TO 4 06/06/19 16 56324-NXFD SKIN LESIONS, 2 TO 4 08/15/19 16 23914-TAPM SKIN LESIONS, 2 TO 4 12/10/19 16 52455-EVWZ SKIN LESIONS, 2 TO 4 12/12/19 17 95558-MEGC SKIN LESIONS, 2 TO 4 01/15/20 18 13564-WKZN SKIN LESIONS, 2 TO 4 07/20/19 19 76852-QDYC NAIL(S) 07/19/2018 40302-KQDU NAIL(S) 03/25/2018 21510-KGAI NAIL(S) 01/14/2018 63562-MIPU NAIL(S) 12/10/2015 55326-GBMF NAIL(S) 12/11/2016 37006-AHWT NAIL(S) 08/15/2019 73289-VIHV NAIL(S) 05/09/2019 84073-EDUQ NAIL(S) 01/31/2019 55359-FCBE NAIL(S) 10/18/2018 62134-ZWKY NAIL(S) 02/27/2020 39916-HMCZ NAIL(S) 07/26/2020 72542-WSYT NAIL(S) 11/19/2020 24068-RIPE NAIL(S) 06/10/2021 35265-OPYR NAIL(S) 06/16/2022 42275-AYYU NAIL(S) 12/09/2021 03614-PDRI NAIL(S) 06/29/2023 52423-DCXY NAIL(S) 12/22/2022 00747-HKNU NAIL(S) 04/18/2024 37892-QAQQ NAIL(S) 07/18/2024 19513-AHDY NAIL(S) 11/17/2024 B3745-ESJSGPXR DYSTROPHIC NAILS ANY # D3994-MULYWYBM DYSTROPHIC NAILS ANY # R7227-KEVFBKJS DYSTROPHIC NAILS ANY # 92990 - Shave Biopsy of Skin Lesion 11/2018 Next Appt Details Provider Name:Lianna Jacobo , 03/20/2025 11:15:00 AM, [address] [place], [address], Insurance Providers Payer Name Payer Address Payer Phone Subscriber Number Group Number Insured Name Patient Relationship to Insured Coverage Start Date Coverage End Date Medicare National [facility] [address] [place] [address] [id number] Bianca Hunt Self - patient is the insured [employer] [address] [place] [address] [id number] Bianca Hunt Self - patient is the [...] removed 2013, 2014 Hospitalization History Reason Date(Month/Year) [facility]- coughing, sick 03/2024 [facility]- Water around heart and lungs [facility]- Abdominal Pain-Infection - antibiot ic 06/06 [facility]- couldnt catch breath 2018 [facility]- Pericarditis/ Pleurral Effusion 05/15 018
== END 2024-12-16 12:29 | disposition home or self-care (01) ==
PROVIDERS: PCP Physician Assistant Medical; Visit Provider Physician Assistant
DX: J06.9 Acute upper respiratory infection, unspecified (principal); H61.23 Impacted cerumen, bilateral

== ENCOUNTER 2024-12-16 10:48 | Outpatient (REF) | payer MEDICARE, SELFPAY ==
[2024-12-16 14:37] LABS: Resp Syncy Virus RNA Qual PCR NEGATIVE (Negative); SARS COV2 PCR INHOUSE NEGATIVE (Negative)
== END 2024-12-16 10:49 | disposition home or self-care (01) ==
LOC: HO.LAB 10:48
PROVIDERS: PCP Physician Assistant Medical; Visit Provider Physician Assistant
DX: J06.9 Acute upper respiratory infection, unspecified (principal); H61.23 Impacted cerumen, bilateral; R09.89 Other specified symptoms and signs involving the circulatory and respiratory systems; Z87.891 Personal history of nicotine dependence
CPT/HCPCS: 69209; 87637; 99212

== ENCOUNTER 2024-12-27 14:06 | Outpatient (REF) | payer MEDICARE, SELFPAY ==
--- NOTE | ~2024-12-27 | XR_ITS ---
EXAMINATION: XR HAND, LEFT CLINICAL INFORMATION: M79.642 - Pain in left hand COMPARISON: None available. TECHNIQUE: PA, lateral, and oblique views of the left hand. FINDINGS: There is diffuse osteopenia. Chondrocalcinosis is present in the triangular fibrocartilage, and the first and fifth metacarpal heads There is moderate narrowing of the DIP and PIP joints. There are marginal osteophytes involving DIP and PIP joints as well as the first, second, third MCP joints as well as the STT and first CMC joints. There is flattening of the ulnar styloid. There is degenerative hypertrophy of the radial styloid. There is mild deepening of the scaphoid articular surface of distal radius.. 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 Osteopenia. Electronically signed by: Sami Mills MD 12/27/2024 03:04 PM EDT
== END 2024-12-27 14:07 | disposition home or self-care (01) ==
LOC: HO.HMGCX 14:06
PROVIDERS: PCP Physician Assistant Medical; Visit Provider Physician Assistant Medical
DX: M79.642 Pain in left hand (principal); M79.89 Other specified soft tissue disorders
CPT/HCPCS: 73130; 99212

== ENCOUNTER 2024-12-27 14:06 | Outpatient (AMB) | payer MEDICARE, SELFPAY ==
--- OUTSIDE RECORDS SUMMARY | 2023-12-28 07:15 | XMS_ITS ---
Author Organization [facility] Address [address] [place] [address] Care Team Providers Care Wooden Furniture Polisher Name Role Phone David Mccarty Primary Care Provider Lianna Jacobo [phone] Encounters Encounter Location Date Provider Diagnosis [address] [address] 12/28/2023 Lianna Jacobo Plan Of Treatment Next Appt Details Provider Name:Lianna Jacobo , 03/20/2025 11:15:00 AM, [address] [place], [address], Progress Notes * Bianca HUNT ADOB:[birth year] (79 yo F)Acc No.[id number]:12/28/2023 Progress Note Patient: Bianca LIM Provider: Steve Jacobo DPM :1945 A ge:78 Y S ex:Female Date:12/28/2023 [facility] [facility] [place] [place] Pcp:David Mccarty Subjective: * Chief Complaints: * [...] 12/28/2023 Generated for Josefina neri/Amanda/Reshma on: 0 12/27/2024 05:55 PM EDT
--- OUTSIDE RECORDS SUMMARY | 2024-03-21 10:45 | XMS_ITS ---
Author Organization [facility] Address [address] [place] [address] Care Team Providers Care Vice President Of Operations Name Role Phone David Mccarty Primary Care Provider Lianna Jacobo [phone] Encounters Encounter Location Date Provider Diagnosis [address] [address] 03/21/2024 Lianna Jacobo Plan Of Treatment Next Appt Details Provider Name:Lianna Jacobo , 03/20/2025 11:15:00 AM, [address] [place], [address], Progress Notes * Bianca HUNT ADOB:[birth year] (79 yo F)Acc No.[id number]:03/21/2024 Progress Note Patient: Bianca LIM Provider: Steve Jacobo DPM :1945 A ge:79 Y S ex:Female Date:03/21/2024 [facility] [facility] [place] [place] Pcp:David Mccarty Subjective: * Chief Complaints: * * Medical History: Objective: * Vitals: Assessment: Plan: * Treatment: * Images: * The named appointment provid er may or may not be the originator of this progress note, and it is not deemed complete until electronically signed by the appointment provider. Sign off status: Pending * Provider: Steve Jacobo DPM Date: 05/22/2023 Generated for Josefina neir/Amanda/Reshma on: 0 12/27/2024 05:55 PM EDT
[2024-12-27 14:13] VITALS: BP 110/74; PULSE 66; TEMP 36.4; O2SAT 94; BMI 30.8
--- NOTE | 2024-12-27 14:13 | MHC.OFFWIV ---
Intake Vital Signs 12/27/24 14:13 Height 5 ft 1 in Weight 163 lb BMI 30.8 BP 110/74 Blood Pressure Location Rt brachial Position Sitting Pulse 66 Pulse Source Pulse Oximeter Temp 97.5 F Temp Source Oral Pulse Oximetry (%) 94 Oxygen Delivery Method Room Air Intake Visit Reasons: EP-lt hand pain, ?swollen & body ache Intake Note: pt presents with left hand pain and swelling to knuckles for a couple days, also c/o pain to low back and radiating down to lower legs Patient Tobacco Use Status: Former Tobacco user Allergies baclofen Adverse Reaction (Unknown, Verified 12/27/24 14:17) CONFUSION, OUT OF IT oxycodone (From Percocet) Adverse Reaction (Unknown, Verified 12/27/24 14:17) NAUSEA Do you need a note to return to daycare/school/sports/work: No HPI HPI Comments History of Present Illness Details History of Present Illness - The patient is a 79-year-old female presenting with left hand swelling and body aches. - Hand swelling was noted upon waking the previous day, with no clear inciting event, although carrying groceries might have been a factor. - The patient experiences significant difficulty in moving the hand, with an inability to make a fist, and tenderness over the bones of the hand. - Body aches are present, affecting the legs and back, with no specific inciting event mentioned. - The patient has a history of being told they might have arthritis, but previous x-rays did not confirm this diagnosis. - Tylenol has been used for pain management, with limited relief reported. - She denies numbness, tingling, trauma, falls, arm pain, redness, warmth, or history of gout. - She is right hand dominant. Physical Exam General: Cooperative, healthy appearing, comfortable, no acute distress and well developed Orientation: Patient oriented x3 Respiratory: Normal respiratory effort and able to speak in complete sentences. Clear to auscultation bilaterally. No w/r/r noted. Cardiovascular: Regular rate and rhythm. Normal S1 and S2. No m/r/g noted. Skin: No rashes or lesions noted. No warmth or erythema noted. No abrasions or bruises noted. Neuro: Patient oriented x3. Sensation is intact. Extremities: Swollen left hand. No nodules noted. FROM of the digits on the left hand. TTP of the 2nd and 3rd MCP joints on the left. No TTP of the left metacarpals, phalanx, DIP or PIP joints. FROM of the wrist. 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 Patient was informed and verbally consented to the use of an ambient scribe for clinic note documentation during this visit. [facility] Medical History (Updated 12/16/24 @ 11:22 by Cira Lentz PA-C) Neuropathic pain Iron overload B12 deficiency Insomnia Cerebellar atrophy Cerebral microvascular disease Peripheral neuropathy History of mammogram (~11/06/23) Obesity (BMI 30-39.9) Anxiety Osteopenia Type 2 diabetes mellitus with hemoglobin A1c goal of less than 7.0% Nocturnal hypoxia LOLY (obstructive sleep apnea) (HFpEF) heart failure with preserved ejection fraction CKD (chronic kidney disease) Pulmonary hypertension Atrial fibrillation Persistent atrial fibrillation CAD (coronary artery disease) Vitamin D deficiency HLD (hyperlipidemia) T2DM (type 2 diabetes mellitus) Acute exacerbation of congestive heart failure Hypertension Parkinson disease Hypothyroid Diabetes Surgical History Hx of cardiac cath (~01/2017) Hx of carpal tunnel repair Hx of knee surgery Hx of hysterectomy Family History Father No problems noted. Mother T2DM (type 2 diabetes mellitus) Brother T2DM (type 2 diabetes mellitus) Social History Household Members: None Housing: Apartment Alcohol intake: current Alcohol intake frequency: holidays/special occasions only Alcohol type: wine Patient Tobacco Use Status: Former Tobacco user Second Hand Smoke Exposure: No Advance Directives Date on File: 03/22/20 service: No Current occupational status: retired Cognitive needs: No Hearing needs: No Vision needs: Yes (rx glasses) Review of Systems Const All systems reviewed & are unremarkable except as noted in HPI and below Physical Exam Vital Signs: Last Vital Signs Temp 97.5 F 12/27/24 14:13 Pulse 66 12/27/24 14:13 BP 110/74 12/27/24 14:13 Pulse Ox 94 12/27/24 14:13 Oxygen Delivery Method Room Air 12/27/24 14:13 BMI result Body Mass Index 30.8 Results Reviewed Results Reviewed: will review the xray in the office today Assessment & Plan Assessment & Plan (1) Left hand pain: Code(s): M79.642 - Pain in left hand Plan Most likely arthritis vs gout vs pseudogout vs cellulitis plan - will order an x-ray in the office - naproxen BID as needed for pain - wear splint/ja wrap for comfort - rest, ice and elevation - follow up with PCP Orders: Orders XR hand LT min 3V Today M79.642 - Pain in left hand Coding Level of Care Code Est Pt Level 4 (27724) Diagnoses Left hand pain M79.642
--- OUTSIDE RECORDS SUMMARY | 2024-12-27 17:56 | XMS_ITS | Patient Health Record ---
Author Organization [facility] Address [address] [facility] [place] [address] Care Team Providers Care Epidemiology Internship Name Role Phone Fernando Mccartyk Primary Care Provider Black, Lianna Unavailable [phone] Allergies Allergen (clinical drug ingredient) Drug/Non Drug [...] Not-Taking Cyanocobalamin Activ e Easy Touch Pen [place] Active PARoxetine HCl Activ e Extra-Depth Diabetic [...] 20-30mm Hg . . .; Duration: . Not-Takoliva g Metoprolol & Diet Manage Prod Active [...] Polyneuropathy due to type 2 diabetes mellitus (131899458) Type 2 diabetes mellitus with diabetic polyneuropathy (E11.42) Active confirmed Vital Signs Blood pressure diastolic 70 mm Hg 11/17/2024 Height 5 ft 2 in in 11/17/2024 Blood pressure systolic 120 mm Hg 11/17/2024 Weight 165 lbs 11/17/2024 BMI 30.18 kg/m2 11/17/2024 Procedures Procedure Date Ordered Date Performed Result Body Sit e 28477-LQJK SKIN LESIONS, OVER 4 04/18/2024 N/A 68130-SGRC NAIL(S) 04/18/2024 N/A 50051-ILIX SKIN LESIONS, OVER 4 07/18/2024 N/A 54012-HYHX NAIL(S) 07/18/2024 N/A 26911-FMBU SKIN LESIONS, OVER 4 11/17/2024 N/A 05935-TRAU NAIL(S) 11/17/2024 N/A Encounters Encounter Location Date Provider Diagnosis [address] [address] 04/18/2024 Lianna Black Plantar fasciitis of left foot M72.2 ; Type 2 diabetes mellitus with diabetic polyneuropathy E11.42 ; Pain in left foot M79.672 ; Calcaneal spur, left foot M77.32 ; Interstitial myositis of left foot M60.172 ; Bursitis of left foot M77.52 and Xerosis of skin L85.[address] [address] 07/18/2024 Lianna Black Plantar fasciitis of left foot M72.2 ; Other hammer toe(s) (acquired), right foot M20.41 ; Type 2 diabetes mellitus with diabetic polyneuropathy E11.42 ; Calcaneal spur, left foot M77.32 ; Interstitial myositis of left foot M60.172 ; Bursitis of left foot M77.52 ; Xerosis of skin L85.3 and Other hammer toe(s) (acquired), left foot M20.[address] [address] 11/17/2024 Lianna Black Type 2 diabetes mellitus with diabetic polyneuropathy E11.[address] [address] 03/21/2024 Liannalópez Jacobo [address] [address] 04/15/2024 Lianna Donnell [address] [address] 07/18/2024 Lianna Jacobo Assessments Encounter Date Diagnosis (ICD Code) Assessment Notes Treatment Notes Treatment Clinical Notes Section Notes 04/18/2024 Type 2 diabetes mellitus with diabetic [...] Pain in left foot (ICD-10 - M79.672) 04/18/2024 Calcaneal spur, left foot (ICD-10 - M77.32) 07/18/2024 Calcaneal spur, left foot (ICD-10 - M77.32) 07/18/2024 Interstitial myositis of left foot (ICD-10 - M60.172) 04/18/2024 Interstitial myositis of left foot (ICD-10 - M60.172) 04/18/2024 Bursitis of left foot (ICD-10 - M77.52) 07/18/2024 Bursitis of left foot (ICD-10 - M77.52) 07/18/2024 Xerosis of skin (ICD-10 - L85.3) 04/18/2024 Xerosis of skin (ICD-10 - L85.3) 07/18/2024 Other hammer toe(s) (acquired), left foot (ICD-10 - M20.42) 11/17/2024 Other Plan Of Treatment Pending Test Test Name Order Date *Uric Acid, Serum 12/22/2023 *CBC With Differential/Platelet 12/22/19 24 C-Reactive Protein, Quant 12/22/2023 ESR 12/22/2023 X ray : Foot, left 3V 12/22/2023 90276-YMAKEBP NAIL, 6 OR MORE 03/25/2011 21459-STSBFKC NAIL, 6 OR MORE 06/13/2011 74048-POMQAXN NAIL, 6 OR MORE 05/07/2012 40751-PWRLSEV NAIL, 6 OR MORE 08/13/2012 24007-AHGNARP NAIL, 6 OR MORE 11/16/2012 36213-SRIJXMB NAIL, 6 OR MORE 02/18/2013 62073-ZIGVWJM NAIL, 6 OR MORE 05/24/2013 82302-UXRXJNX NAIL, 6 OR MORE 08/30/2013 23880-SEVKGHP NAIL, 6 OR MORE 02/02/2014 81542-GVEBTEJ NAIL, 6 OR MORE 07/31/2014 52928-TGQFQIR NAIL, 6 OR MORE 12/04/2014 48230-Pjin Destruction, 1-14 03/25/2011 96128-Aefy Destruction, 1-14 06/13/2011 61440-Trztwzuu Plate 06/13/2011 50006-Rkjurmkm Plate 05/07/2012 69791-Fwgefpip Plate 03/25/2011 26818-Cqvaiaop Plate 12/04/2014 37436-Xyvaqkyr Plate 07/31/2014 73097-Nmuslfte Plate 02/02/2014 13127-Plfjzyew Plate 08/30/2013 40083-Tihdcaey Plate 05/24/2013 54962-Kxgubjmu Plate 12/11/2016 80464-Ufeztpvx Plate 03/25/2018 06109-Gropavel Plate 11/19/2020 26182-Xxhufocm Plate 06/10/2021 48025-Rzcrhrud Plate Each Additional 17912-Dnbrtaxw Plate Each Additional 01682- Debride <25 sq cm 12/04/2014 39339- Debride <25 sq cm 08/05/2018 20773- Debride <25 sq cm 07/31/2014 98796 I&D ABSCESS- SIMPLE,SINGLE 016 70691 I&D ABSCESS- SIMPLE,SINGLE 016 86476- I&D ABSCESS-COMPLICATED,MULTI 07/2015 45347- I&D ABSCESS-COMPLICATED,MULTI , J0702- INJECT TENDON ORIGIN/INSER T 06/06/2015, J0702- INJECT TENDON ORIGIN/INSER T 04/16/2015, J0702- INJECT or DRAIN, JOINT/BUR SA 04/16/2015, J0702- INJECT or DRAIN, JOINT/BUR SA 06/06/2015 63650-DKIJ SKIN LESIONS, OVER 4 11/20/19 21 27713-KZEF SKIN LESIONS, OVER 4 07/27/19 21 31919-LBHW SKIN LESIONS, OVER 4 11/21/19 20 57785-YGZT SKIN LESIONS, OVER 4 02/27/20 20 56077-ITOU SKIN LESIONS, OVER 4 12/05/19 15 88832-FXRC SKIN LESIONS, OVER 4 05/24/19 14 62460-XSIW SKIN LESIONS, OVER 4 08/31/19 14 37574-QONA SKIN LESIONS, OVER 4 02/03/20 14 74506-YANE SKIN LESIONS, OVER 4 08/01/19 15 34097-QHQN SKIN LESIONS, OVER 4 08/14/19 13 90108-GNGM SKIN LESIONS, OVER 4 02/19/20 13 34008-LOTY SKIN LESIONS, OVER 4 11/17/19 13 44719-XMIQ SKIN LESIONS, OVER 4 03/25/20 11 86343-TSZO SKIN LESIONS, OVER 4 05/07/19 13 97934-UWRD SKIN LESIONS, OVER 4 06/13/19 12 42083-EGNA SKIN LESIONS, OVER 4 06/10/19 22 95079-JLKI SKIN LESIONS, OVER 4 12/10/19 22 08421-MJXX SKIN LESIONS, OVER 4 06/17/19 23 78684-HWKA SKIN LESIONS, OVER 4 04/18/19 25 16792-RWFG SKIN LESIONS, OVER 4 12/23/19 23 99045-WSCC SKIN LESIONS, OVER 4 06/29/19 24 72026-QBUM SKIN LESIONS, OVER 4 11/18/19 25 35006-ETYW SKIN LESIONS, OVER 4 07/19/19 25 83368-DGAJ SKIN LESIONS, 2 TO 4 03/25/20 18 38950-OLWH SKIN LESIONS, 2 TO 4 04/16/19 16 13704-SREI SKIN LESIONS, 2 TO 4 10/19/19 19 36426-HVDD SKIN LESIONS, 2 TO 4 02/01/20 19 39916-XLOV SKIN LESIONS, 2 TO 4 05/09/19 20 74576-TAYK SKIN LESIONS, 2 TO 4 08/15/19 20 98001-WSZN SKIN LESIONS, 2 TO 4 06/06/19 16 98533-RPYX SKIN LESIONS, 2 TO 4 08/15/19 16 83731-MQXC SKIN LESIONS, 2 TO 4 12/10/19 16 06148-DSWD SKIN LESIONS, 2 TO 4 12/12/19 17 53300-IFFQ SKIN LESIONS, 2 TO 4 01/15/20 18 56203-YCTL SKIN LESIONS, 2 TO 4 07/20/19 19 66391-TMUX NAIL(S) 07/19/2018 34176-IETN NAIL(S) 03/25/2018 21687-PWPL NAIL(S) 01/14/2018 60602-LYNA NAIL(S) 12/10/2015 49512-LJHW NAIL(S) 12/11/2016 96864-RUHL NAIL(S) 08/15/2019 01778-HHLQ NAIL(S) 05/09/2019 62154-DHAX NAIL(S) 01/31/2019 75969-WIBN NAIL(S) 10/18/2018 64784-AGTV NAIL(S) 02/27/2020 66500-YZGR NAIL(S) 07/26/2020 58809-SIDO NAIL(S) 11/19/2020 78388-XPLC NAIL(S) 06/10/2021 13466-OEUR NAIL(S) 06/16/2022 95461-ALDY NAIL(S) 12/09/2021 19549-NOPX NAIL(S) 06/29/2023 32907-ZONV NAIL(S) 12/22/2022 24310-KRTJ NAIL(S) 04/18/2024 25449-UMKQ NAIL(S) 07/18/2024 77451-UAJJ NAIL(S) 11/17/2024 A1093-BPYVIICN DYSTROPHIC NAILS ANY # J7551-JZZEPXJM DYSTROPHIC NAILS ANY # R3386-CBGGJJSC DYSTROPHIC NAILS ANY # 40121 - Shave Biopsy of Skin Lesion 11/2018 Next Appt Details Provider Name:Lianna Mcgowan Donnell , 03/20/2025 11:15:00 AM, [address] [facility], [place], [address], Insurance Providers Payer Name Payer Address Payer Phone Subscriber Number Group Number Insured Name Patient Relationship to Insured Coverage Start Date Coverage End Date Medicare National [employer] [address] [place] [address] [id number] Bianca Hunt Self - patient is the insured [employer] [facility] [address] [place] [address] [phone] [id number] Bianca Hunt Self - patient is the [...] removed 2013, 2014 Hospitalization History Reason Date(Month/Year) [facility]- coughing, sick 03/2024 [facility]- Water around heart and lungs [facility]- Abdominal Pain-Infection - antibiot ic 06/06 [facility]- couldnt catch breath 2018 [facility]- Pericarditis/ Pleurral Effusion 05/15 018
--- OUTSIDE RECORDS SUMMARY | 2024-12-27 17:56 | XMS_ITS | Clinical Summary ---
Author Organization [facility] Address [address] [place] [address] Phone Care Team Providers Care Head Animal Trainer Name Role Phone Reji Molina MD Primary Care Provider Allergies Active Allergy Reactions Criticality Noted Date [...] Insurance [facility] Medicare Medicaid [place] Medicare [facility] Medicaid [place] Care Teams Head Animal Trainer Relationship Specialty Start Date End Date Reji Molina MD [address] [place] [address] PCP - General 04/23/20
== END 2024-12-27 15:21 | disposition home or self-care (01) ==
PROVIDERS: PCP Physician Assistant Medical; Visit Provider Physician Assistant Medical
DX: M79.642 Pain in left hand (principal)

== ENCOUNTER → 2024-12-27 14:46 | Outpatient (BNV) | payer MEDICARE, SELFPAY | PROVIDERS: PCP Physician Assistant Medical; Visit Provider Radiology Diagnostic Radiology | DX: M79.642 Pain in left hand (principal) | CPT/HCPCS: 73130 ==

== ENCOUNTER 2025-01-03 14:33 | Outpatient (AMB) | payer MEDICARE, SELFPAY ==
--- OUTSIDE RECORDS SUMMARY | 2023-12-28 07:15 | XMS_ITS ---
Author Organization [facility] Address [address] [place] [address] Care Team Providers Care Director Graphics Name Role Phone David Mccarty Primary Care Provider Lianna Jacobo [phone] Encounters Encounter Location Date Provider Diagnosis [address] [address] 12/28/2023 Lianna Jacobo Plan Of Treatment Next Appt Details Provider Name:Lianna Jacobo , 03/20/2025 11:15:00 AM, [address] [place], [address], Progress Notes * Bianca HUNT ADOB:[birth year] (80 yo F)Acc No.[id number]:12/28/2023 Progress Note Patient: Bianca LIM Provider: Steve Jacobo DPM :1945 A ge:78 Y S ex:Female Date:12/28/2023 [facility] [facility] [place] [place] Pcp:David Mccarty Subjective: * Chief Complaints: * [...] 0 12/28/2023 Generated for Josefina neri/Amanda/Reshma on: 0 01/03/2025 05:45 PM EDT
--- OUTSIDE RECORDS SUMMARY | 2024-03-21 10:45 | XMS_ITS ---
Author Organization [facility] Address [address] [place] [address] Care Team Providers Care Shear Helper Name Role Phone David Mccarty Primary Care Provider Lianna Jacobo [phone] Encounters Encounter Location Date Provider Diagnosis [address] [address] 03/21/2024 Lianna Jacobo Plan Of Treatment Next Appt Details Provider Name:Lianna Jacobo , 03/20/2025 11:15:00 AM, [address] [place], [address], Progress Notes * Bianca HUNT ADOB:[birth year] (80 yo F)Acc No.[id number]:03/21/2024 Progress Note Patient: Bianca LIM Provider: Steve Jacobo DPM :1945 A ge:79 Y S ex:Female Date:03/21/2024 [facility] [facility] [place] [place] Pcp:David Mccarty Subjective: * Chief Complaints: * [...] 05/22/2023 Generated for Josefina neri/Amanda/Reshma on: 0 01/03/2025 05:45 PM EDT
--- NOTE | 2025-01-03 14:37 | A.OFFVIS_ITS ---
Vital Signs 01/03/25 14:38 Height 5 ft 1 in Weight 160 lb 14.999 oz BMI 30.4 BP 118/70 Blood Pressure Location Lt brachial Position Sitting Pulse 66 Intake Visit Reasons: 6 mth f/up Intake Note: 6 month follow-up feeling good Information Technology Administrator Required: No Cinder Crusher Operator: Cinder Crusher Operator Present Accompanied by: Daughter Allergies baclofen Adverse Reaction (Unknown, Verified 12/27/24 14:17) CONFUSION, OUT OF IT oxycodone (From Percocet) Adverse Reaction (Unknown, Verified 12/27/24 14:17) NAUSEA Medication List - Last Reconciled 01/03/25 by Shaun Saleh MD alprazolam 1 mg PO TID apixaban (Eliquis) 5 mg PO BID atorvastatin 40 mg PO BEDTIME blood pressure monitor Check blood pressure daily blood sugar diagnostic (Contour Next Test Strips) As directed 3 times a day with meals 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 meter (Contour Next One Meter) Check glucose 3 times a day with meals 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 sensor (FreeStyle Sanjeev 3 Sensor device) As directed E11.8 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 sensor (FreeStyle Sanjeev 3 Plus Sensor device) Check glucose 3 times a day with meals 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,shop manager,cont (FreeStyle Sanjeev 3 [place]) As directed E&M code 11.8 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,shop manager,cont (FreeStyle Sanjeev 3 [place]) Check glucose 3 times a day with meals carbidopa-levodopa 25-100 mg 1 tab PO TID cholecalciferol (vitamin D3) 50 mcg PO DAILY cyanocobalamin (vitamin B-12) 1,000 mcg IM Q28D 1 month furosemide (Lasix) 40 mg PO DAILY insulin degludec (Tresiba FlexTouch U-100 insulin) 55 units (0.55 mL) subcut DAILY 3 months insulin lispro (Humalog KwikPen (U-100) Insulin) 7 units (0.07 mL) subcut TID 90 days lancets As directed levothyroxine 112 mcg PO DAILY losartan 50 mg PO DAILY 90 days metoprolol tartrate 25 mg PO BID paroxetine HCl 40 mg PO DAILY pen needle, diabetic 4x daily semaglutide (Ozempic) 0.5 mg (0.736 mL) subcut QWEEK syringe with needle (BD Tuberculin Syringe) For vitamin B12 injections monthly HPI Comments Details: Bianca comes for follow-up. She has been doing extremely well. She has had no hospitalization in the last 6 months from heart perspective. Takes all her medications. Came off Jardiance therapy due to side effects, she does not recall much side effects but although side effects resolved. She denies any orthopnea, PND. No worsening shortness of breath. No prolonged palpitations, lightheadedness, syncope. No bleeding issues or neurologic events. No exertional chest pain. [facility] Medical History Neuropathic pain Iron overload B12 deficiency Insomnia Cerebellar atrophy Cerebral microvascular disease Peripheral neuropathy History of mammogram (~11/06/23) Obesity (BMI 30-39.9) Anxiety Osteopenia Type 2 diabetes mellitus with hemoglobin A1c goal of less than 7.0% Nocturnal hypoxia LOLY (obstructive sleep apnea) (HFpEF) heart failure with preserved ejection fraction CKD (chronic kidney disease) Pulmonary hypertension Atrial fibrillation Persistent atrial fibrillation CAD (coronary artery disease) Vitamin D deficiency HLD (hyperlipidemia) T2DM (type 2 diabetes mellitus) Acute exacerbation of congestive heart failure Hypertension Parkinson disease Hypothyroid Diabetes Surgical History Hx of cardiac cath (~01/2017) Hx of carpal tunnel repair Hx of knee surgery Hx of hysterectomy Family History Father No problems noted. Mother T2DM (type 2 diabetes mellitus) Brother T2DM (type 2 diabetes mellitus) Social History Household Members: None Housing: Apartment Alcohol intake: current Alcohol intake frequency: holidays/special occasions only Alcohol type: wine Patient Tobacco Use Status: Former Tobacco user Second Hand Smoke Exposure: No Advance Directives Date on File: 03/22/20 service: No Current occupational status: retired Cognitive needs: No Hearing needs: No Vision needs: Yes (rx glasses) Review of Systems Const Denies chills, Denies fatigue, Denies fever(s), Denies frequent falls, Denies weakness, Denies weight gain and Denies weight loss ENT Denies dizziness Card Denies chest pain, Denies leg edema, Denies lightheadedness, Denies palpitations, Denies dyspnea, Denies dyspnea on exertion, Denies orthopnea and Denies other (loss of consciousness) Resp Denies cough, Denies dyspnea and Denies dyspnea on exertion GI Denies hematochezia and Denies change in stool character Musc Denies abnormal gait, Denies muscle weakness, Denies numbness, Denies radiating pain into limb and Denies tingling Neuro Denies abnormal gait, Denies dizziness, Denies frequent falls, Denies numbness, Denies tingling and Denies weakness Endo Denies fatigue and Denies palpitations Physical Exam Vital Signs: Last Vital Signs Pulse 66 01/03/25 14:38 BP 118/70 01/03/25 14:38 BMI result Body Mass Index 30.4 Const General: cooperative, healthy appearing, comfortable and no acute distress Orientation/consciousness: patient oriented x3 Neck Neck: Yes normal visual inspection Resp Effort & Inspection: normal respiratory effort Auscultation: clear to auscultation bilaterally, no crackles, no rales, no rhonchi and no wheezes Cardio Rhythm: abnormal rhythm irregularly irregular Heart sounds: S1 normal heart sound present, S2 normal heart sound present, no murmurs and no rubs Neuro General: patient oriented x3 Extrem General: Yes normal to inspection Psych Appearance: grossly normal Mental Status: mental status grossly normal Speech and movement: Normal speech and movement present Assessment & Plan Assessment & Plan (1) (HFpEF) heart failure with preserved ejection fraction: Code(s): I50.30 - Unspecified diastolic (congestive) heart failure Category: Medical Qualifiers: Heart failure chronicity: unspecified Qualified Code(s): I50.30 - Unsp ecified diastolic (congestive) heart failure Plan: Heart failure preserved ejection fraction with reduced RV systolic function with biatrial enlargement related to chronic atrial fibrillation diastolic dysfunction. Clinically appears to be euvolemic and well compensated current diuretic dose. She could not tolerate Jardiance therapy. Would hold off on adding any other therapy at this point time. Clinically active. Encouraged to maintain activity level and participate in weight loss program. Continue current diuretic regimen. Additional diuretics as need be was discussed. Goals of therapy were discussed. Daily weight monitoring avoidance salt loading was discussed. (2) Atrial fibrillation, chronic: Code(s): I48.20 - Chronic atrial fibrillation, unspecified Category: Medical Plan: Chronic atrial fibrillation has failed rhythm control. Currently pursuing rate control with metoprolol therapy. Continue the same. Rate is adequately controlled. Continue full oral anticoagulation, currently on Eliquis 5 mg b.i.d.. Semi annual renal function test should be pursued. Will follow up in the clinic in 6 months time after an echocardiogram. Thank you for allowing me to partake in her care Orders: Orders CA echo transthoracic complete 6 Months I50.30 - Unspecified diastolic (congestive) heart failure Coding Level of Care Code Est Pt Level 4 (64969) Complex EM visit Add On G2211 Diagnoses Heart failure with preserved ejection fraction, unspecified HF chronicity I50.30 Heart failure chronicity: unspecified Atrial fibrillation, chronic I48.20
[2025-01-03 14:38] VITALS: BP 118/70; PULSE 66; BMI 30.4
--- OUTSIDE RECORDS SUMMARY | 2025-01-03 17:46 | XMS_ITS | Patient Health Record ---
Author Organization [facility] Address [address] [place] [address] Care Team Providers Care Ranch Cook Name Role Phone Fernando Mccartyk Primary Care Provider Black, Lianna Unavailable [phone] Allergies Allergen (clinical drug ingredient) Drug/Non Drug [...] Not-Taking Cyanocobalamin Activ e Easy Touch Pen [place] Active PARoxetine HCl Activ e Extra-Depth Diabetic [...] Polyneuropathy due to type 2 diabetes mellitus ([id number]) Type 2 diabetes mellitus with diabetic polyneuropathy (E11.42) Active confirmed Vital Signs Blood pressure diastolic 70 mm Hg 11/17/2024 Height 5 ft 2 in in 11/17/2024 Blood pressure systolic 120 mm Hg 11/17/2024 Weight 165 lbs 11/17/2024 BMI 30.18 kg/m2 11/17/2024 Procedures Procedure Date Ordered Date Performed Result Body Sit e 71340-TXPK SKIN LESIONS, OVER 4 04/18/2024 N/A 62306-CXWV NAIL(S) 04/18/2024 N/A 50526-UEMY SKIN LESIONS, OVER 4 07/18/2024 N/A 74430-TQOS NAIL(S) 07/18/2024 N/A 44093-RKQR SKIN LESIONS, OVER 4 11/17/2024 N/A 94333-PCZZ NAIL(S) 11/17/2024 N/A Encounters Encounter Location Date Provider Diagnosis [address] [address] 04/18/2024 Lianna Black Plantar fasciitis of left foot M72.2 ; Type 2 diabetes mellitus with diabetic polyneuropathy E11.42 ; Pain in left foot M79.672 ; Calcaneal spur, left foot M77.32 ; Interstitial myositis of left foot M60.172 ; Bursitis of left foot M77.52 and Xerosis of skin L85.[address] [address] 07/18/2024 Lianna Black Plantar fasciitis of left foot M72.2 ; Other hammer toe(s) (acquired), right foot M20.41 ; Type 2 diabetes mellitus with diabetic polyneuropathy E11.42 ; Calcaneal spur, left foot M77.32 ; Interstitial myositis of left foot M60.172 ; Bursitis of left foot M77.52 ; Xerosis of skin L85.3 and Other hammer toe(s) (acquired), left foot M20.[address] [address] 11/17/2024 Lianna Black Type 2 diabetes mellitus with diabetic polyneuropathy E11.[address] [address] 03/21/2024 Liannalópez Jacobo [address] [address] 04/15/2024 Lianna Donnell [address] [address] 07/18/2024 Lianna Jacobo Assessments Encounter Date Diagnosis [...] X ray : Foot, left 3V 12/22/2023 27119-WFTENFU NAIL, 6 OR MORE 03/25/2011 98263-AKXUMKL NAIL, 6 OR MORE 06/13/2011 38815-CEOYSDM NAIL, 6 OR MORE 05/07/2012 49414-FHEOKTN NAIL, 6 OR MORE 08/13/2012 34470-UMFJQBJ NAIL, 6 OR MORE 11/16/2012 92899-RZRYEKT NAIL, 6 OR MORE 02/18/2013 06061-YZGXUQQ NAIL, 6 OR MORE 05/24/2013 78876-LWHMVBH NAIL, 6 OR MORE 08/30/2013 07046-IHXSGBD NAIL, 6 OR MORE 02/02/2014 64572-KNEAAJM NAIL, 6 OR MORE 07/31/2014 74423-LVQSJYF NAIL, 6 OR MORE 12/04/2014 63109-Nymc Destruction, 1-14 03/25/2011 33887-Aefe Destruction, 1-14 06/13/2011 00703-Nymbbfpn Plate 06/13/2011 65781-Gcvlersp Plate 05/07/2012 14983-Hcnvotvs Plate 03/25/2011 69503-Datwuaqt Plate 12/04/2014 93516-Vvznwvur Plate 07/31/2014 50295-Oojsliao Plate 02/02/2014 48582-Kcujbbwf Plate 08/30/2013 26626-Vavkcgxc Plate 05/24/2013 83484-Sjylakvy Plate 12/11/2016 92232-Lalnmkkz Plate 03/25/2018 86659-Ozdsgdbv Plate 11/19/2020 45783-Cccwuqzv Plate 06/10/2021 21462-Fhnhsggr Plate Each Additional 32261-Ntwyjuip Plate Each Additional 71359- Debride <25 sq cm 12/04/2014 17457- Debride <25 sq cm 08/05/2018 04885- Debride <25 sq cm 07/31/2014 92215 I&D ABSCESS- SIMPLE,SINGLE 016 40154 I&D ABSCESS- SIMPLE,SINGLE 016 94833- I&D ABSCESS-COMPLICATED,MULTI 07/2015 23381- I&D ABSCESS-COMPLICATED,MULTI , J0702- INJECT TENDON ORIGIN/INSER T 06/06/2015, J0702- INJECT TENDON ORIGIN/INSER T 04/16/2015, J0702- INJECT or DRAIN, JOINT/BUR SA 04/16/2015, J0702- INJECT or DRAIN, JOINT/BUR SA 06/06/2015 80842-IPTE SKIN LESIONS, OVER 4 11/20/19 21 54532-ZXVL SKIN LESIONS, OVER 4 07/27/19 21 40728-ECAI SKIN LESIONS, OVER 4 11/21/19 20 98507-ZZUH SKIN LESIONS, OVER 4 02/27/20 20 70356-VURM SKIN LESIONS, OVER 4 12/05/19 15 51042-OMRM SKIN LESIONS, OVER 4 05/24/19 14 11482-QRTJ SKIN LESIONS, OVER 4 08/31/19 14 19226-JHVJ SKIN LESIONS, OVER 4 02/03/20 14 55502-VYHU SKIN LESIONS, OVER 4 08/01/19 15 57587-ZYSS SKIN LESIONS, OVER 4 08/14/19 13 65698-OZIH SKIN LESIONS, OVER 4 02/19/20 13 49104-LQZP SKIN LESIONS, OVER 4 11/17/19 13 62068-OYHT SKIN LESIONS, OVER 4 03/25/20 11 40726-PNYN SKIN LESIONS, OVER 4 05/07/19 13 31022-NOZE SKIN LESIONS, OVER 4 06/13/19 12 83585-CICY SKIN LESIONS, OVER 4 06/10/19 22 53822-GJHT SKIN LESIONS, OVER 4 12/10/19 22 25346-LCUC SKIN LESIONS, OVER 4 06/17/19 23 49245-AGIY SKIN LESIONS, OVER 4 04/18/19 25 58436-ZQNX SKIN LESIONS, OVER 4 12/23/19 23 94179-GWQO SKIN LESIONS, OVER 4 06/29/19 24 07853-VSQI SKIN LESIONS, OVER 4 11/18/19 25 73309-OEKZ SKIN LESIONS, OVER 4 07/19/19 25 22848-TZED SKIN LESIONS, 2 TO 4 03/25/20 18 13003-UZKA SKIN LESIONS, 2 TO 4 04/16/19 16 28029-JLJC SKIN LESIONS, 2 TO 4 10/19/19 19 99984-AYOC SKIN LESIONS, 2 TO 4 02/01/20 19 99842-SFER SKIN LESIONS, 2 TO 4 05/09/19 20 05574-YTWS SKIN LESIONS, 2 TO 4 08/15/19 20 44895-CBOH SKIN LESIONS, 2 TO 4 06/06/19 16 09631-SOPF SKIN LESIONS, 2 TO 4 08/15/19 16 28247-DFOW SKIN LESIONS, 2 TO 4 12/10/19 16 71246-REZV SKIN LESIONS, 2 TO 4 12/12/19 17 07404-BDXU SKIN LESIONS, 2 TO 4 01/15/20 18 59112-YNZL SKIN LESIONS, 2 TO 4 07/20/19 19 25417-ZDGY NAIL(S) 07/19/2018 05128-ATBB NAIL(S) 03/25/2018 37600-PUYW NAIL(S) 01/14/2018 09272-RWKD NAIL(S) 12/10/2015 20766-LVOU NAIL(S) 12/11/2016 28486-EKRM NAIL(S) 08/15/2019 36303-XGXV NAIL(S) 05/09/2019 17437-RZES NAIL(S) 01/31/2019 90900-AWQM NAIL(S) 10/18/2018 66097-IQND NAIL(S) 02/27/2020 92989-PDLZ NAIL(S) 07/26/2020 63863-LOCX NAIL(S) 11/19/2020 60264-XRUG NAIL(S) 06/10/2021 47973-NQIJ NAIL(S) 06/16/2022 47128-QWBF NAIL(S) 12/09/2021 98144-ZRWP NAIL(S) 06/29/2023 36453-RJMP NAIL(S) 12/22/2022 71277-FMPB NAIL(S) 04/18/2024 13824-IJPP NAIL(S) 07/18/2024 84211-HPTS NAIL(S) 11/17/2024 S7345-RJQEGLAX DYSTROPHIC NAILS ANY # V4334-QANLYQYJ DYSTROPHIC NAILS ANY # H0087-PNSOEKVB DYSTROPHIC NAILS ANY # 04250 - Shave Biopsy of Skin Lesion 11/2018 Next Appt Details Provider Name:Lianna Mcgowan Donnell , 03/20/2025 11:15:00 AM, [address], [place], [address], Insurance Providers Payer Name Payer Address Payer Phone Subscriber Number Group Number Insured Name Patient Relationship to Insured Coverage Start Date Coverage End Date Medicare [employer] [address] [place] [address] [id number] Bianca Hunt Self - patient is the insured [facility] [address] [place] [address] [id number] Bianca Hunt Self - patient is the [...] removed 2013, 2014 Hospitalization History Reason Date(Month/[place] [facility] [place], [place] [facility] [place] heart [place] lungs [facility] [place]fection - antibiot ic 06/06 [facility] [place] 2018 [facility]- Pericarditis/ Pleurral Effusion 05/15 018
--- OUTSIDE RECORDS SUMMARY | 2025-01-03 17:46 | XMS_ITS | Clinical Summary ---
Author Organization [facility] Address [address] [place] [address] Phone Care Team Providers Care Gas Regulator Repairer Helper Name Role Phone Reji Molina MD Primary Care Provider [phone] Allergies Active Allergy Reactions Criticality Noted Date [...] [place] Medicare [facility] Medicaid [place] Care Teams Gas Regulator Repairer Helper Relationship Specialty Start Date End Date Reji Molina MD [address] [place] [address] PCP - General 04/23/20
== END 2025-01-03 14:58 | disposition home or self-care (01) ==
LOC: HO.HCS 14:34
PROVIDERS: PCP Internal Medicine; Visit Provider Internal Medicine Cardiovascular Disease
DX: I50.30 Unspecified diastolic (congestive) heart failure (principal); I48.20 Chronic atrial fibrillation, unspecified
CPT/HCPCS: 99214; G2211

== ENCOUNTER → 2025-01-03 14:33 | Outpatient (BNVA) | payer MEDICARE, SELFPAY | PROVIDERS: PCP Internal Medicine; Visit Provider Internal Medicine Cardiovascular Disease | DX: I50.30 Unspecified diastolic (congestive) heart failure (principal); I48.20 Chronic atrial fibrillation, unspecified | CPT/HCPCS: 99212 ==

== ENCOUNTER 2025-01-10 14:48 | Outpatient (AMB) | payer MEDICARE, SELFPAY ==
--- OUTSIDE RECORDS SUMMARY | 2023-12-28 07:15 | XMS_ITS ---
Author Organization [facility] Address [address] [place] [address] Care Team Providers Care Finance Teacher Name Role Phone David Mccarty Primary Care Provider Lianna Jacobo [phone] Encounters Encounter Location Date Provider Diagnosis [address] [address] 12/28/2023 Lianna Jacobo Plan Of Treatment Next Appt Details Provider Name:Lianna Jacobo , 03/20/2025 11:15:00 AM, [address] [place], [address], Progress Notes * Bianca HUNT ADOB:[birth year] (80 yo F)Acc No.[id number]:12/28/2023 Progress Note Patient: Bianca LIM Provider: Steve Jacobo DPM :1945 A ge:78 Y S ex:Female Date:12/28/2023 [facility] [facility] [place] [place] Pcp:David Mccarty Subjective: * Chief Complaints: * [...] 12/28/2023 Generated for Josefina neri/Amanda/Reshma on: 0 01/10/2025 04:09 PM EDT
--- OUTSIDE RECORDS SUMMARY | 2024-03-21 10:45 | XMS_ITS ---
[facility] Address [address] [place] [address] Care Team Providers Care Home Energy Consultant Name Role Phone David Mccarty Primary Care Provider [phone] Lianna Jacobo [phone] Encounters Encounter Location Date Provider Diagnosis [address] [address] 03/21/2024 Lianna Jacobo Plan Of Treatment Next Appt Details Provider Name:Lianna Jacobo , 03/20/2025 11:15:00 AM, [address] [place], [address], Progress Notes * Bianca HUNT ADOB:[birth year] (80 yo F)Acc No.[id number]:03/21/2024 Progress Note Patient: Bianca LIM Provider: Steve Jacobo DPM :1945 A ge:79 Y S ex:Female Date:03/21/2024 [facility] [facility] Pcp:David Mccarty Subjective: * Chief Complaints: * [...] 05/22/2023 Generated for Josefina neri/Amanda/Reshma on: 0 01/10/2025 04:09 PM EDT
--- NOTE | 2025-01-10 14:51 | MHC.PC.OV ---
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 Accompanied by: Daughter Allergies baclofen Adverse Reaction (Unknown, Verified 01/10/25 17:27) CONFUSION, OUT OF IT oxycodone (From Percocet) Adverse Reaction (Unknown, Verified 01/10/25 17:27) NAUSEA Medication List - Last Reconciled 01/10/25 by Rosalia Mohr PA-C alprazolam 1 mg PO TID apixaban (Eliquis) 5 mg PO BID atorvastatin 40 mg PO BEDTIME blood pressure monitor Check blood pressure daily blood sugar diagnostic (Contour Next Test Strips) As directed 3 times a day with meals 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 meter (Contour Next One Meter) Check glucose 3 times a day with meals 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 sensor (FreeStyle Sanjeev 3 Sensor device) As directed E11.8 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 sensor (FreeStyle Sanjeev 3 Plus Sensor device) Check glucose 3 times a day with meals 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,production trainer,cont (FreeStyle Sanjeev 3 [place]) As directed E&M code 11.8 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,production trainer,cont (FreeStyle Sanjeev 3 [place]) Check glucose 3 times a day with meals carbidopa-levodopa 25-100 mg 1 tab PO TID cephalexin 500 mg PO QID 7 days cholecalciferol (vitamin D3) 50 mcg PO DAILY cyanocobalamin (vitamin B-12) 1,000 mcg IM Q28D 1 month cyclobenzaprine 10 mg PO TID diclofenac sodium 1% (Voltaren Arthritis Pain) 4 grams topical QID furosemide (Lasix) 40 mg PO DAILY gentamicin 0.1% 1 appl topical BID insulin degludec (Tresiba FlexTouch U-100 insulin) 38 units subcut DAILY insulin lispro (Humalog KwikPen (U-100) Insulin) 7 units (0.07 mL) subcut TID 90 days lancets As directed levothyroxine 112 mcg PO DAILY losartan 50 mg PO DAILY 90 days metoprolol tartrate 25 mg PO BID paroxetine HCl 40 mg PO DAILY pen needle, diabetic 4x daily semaglutide 1 mg (0.75 mL) subcut QWEEK syringe with needle (BD Tuberculin Syringe) For vitamin B12 injections monthly Tobacco use date assessed: 11/03/24 Dental Screening Dental Screen Date: 11/03/24 HPI b12 1 month HPI Details The patient is a 80-year-old female presenting with a Vitamin B12 deficiency and Type 2 Diabetes Mellitus. She is here for a B12 injection and to discuss the management of her diabetes, including the adjustment of her Ozempic dosage. The patient reports a toe infection that began as a blister on the right third toe after extensive walking. The infection has been managed with cleaning and topical antibiotics, but further intervention may be necessary if it does not improve. The patient also experiences chronic back and leg pain, which has been attributed to arthritis based on previous x-rays. She has been using Tylenol for pain management and is considering muscle relaxants and physical therapy as additional treatment options. Social History - The patient does not work and has been managing her health conditions at home. [facility] Medical History (Updated 01/10/25 @ 17:31 by Rosalia Mohr PA-C) Arthritis Leg pain Back pain Cellulitis Neuropathic pain Iron overload B12 deficiency Insomnia Cerebellar atrophy Cerebral microvascular disease Peripheral neuropathy History of mammogram (~11/06/23) Obesity (BMI 30-39.9) Anxiety Osteopenia Type 2 diabetes mellitus with hemoglobin A1c goal of less than 7.0% Nocturnal hypoxia LOLY (obstructive sleep apnea) (HFpEF) heart failure with preserved ejection fraction CKD (chronic kidney disease) Pulmonary hypertension Atrial fibrillation Persistent atrial fibrillation CAD (coronary artery disease) Vitamin D deficiency HLD (hyperlipidemia) T2DM (type 2 diabetes mellitus) Acute exacerbation of congestive heart failure Hypertension Parkinson disease Hypothyroid Diabetes Surgical History Hx of cardiac cath (~01/2017) Hx of carpal tunnel repair Hx of knee surgery Hx of hysterectomy Family History Father No problems noted. Mother T2DM (type 2 diabetes mellitus) Brother T2DM (type 2 diabetes mellitus) Social History Household Members: None Housing: Apartment Alcohol intake: current Alcohol intake frequency: holidays/special occasions only Alcohol type: wine Patient Tobacco Use Status: Former Tobacco user Second Hand Smoke Exposure: No Advance Directives Date on File: 03/22/20 service: No Current occupational status: retired Cognitive needs: No Hearing needs: No Vision needs: Yes (rx glasses) Questionnaire PHQ-9 Over the last 2 weeks, how often have you been bothered by any of the following problems? 1. Little interest or pleasure in doing things: not at all 2. Feeling down, depressed, or hopeless: not at all 3. Trouble falling or staying asleep, or sleeping too much: not at all 4. Feeling tired or having little energy: not at all 5. Poor appetite or overeating: not at all 6. Feeling bad about yourself - or that you are a failure or have let yourself or your family down: not at all 7. Trouble concentrating on things, such as reading the newspaper or watching television: not at all 8. Moving or speaking so slowly that other people could have noticed. Or the opposite - being so fidgety or restless that you have been moving around a lot more than usual: not at all 9. Thoughts that you would be better off or of hurting yourself in some way: not at all Total score: 0 Depression Screening Interpretation: Negative Depression Screening Done: Yes 37387 - PHQ-9 Billing: Yes Source: Developed by Drs. Andi Zarate, Jenna Tellez, Giovanni Walton and colleagues, with an educational dandy from [employer] Thrive Questionnaire Date Thrive assessed: 11/03/24 I am a: Patient What is your living situation today?: I have a steady place to live Within the past 12 months, did the food you bought not last and you didn't have the money to get more?: Never true Within the past 12 months, did you worry whether your food would run out before you got money to buy more?: Never true Do you have trouble paying for medicines?: No Do you have trouble getting transportation to medical appointments?: No Do you have trouble paying your heating and electricity bill?: No Do you have trouble taking care of your child, family member or friend?: No Do you have trouble with day-to-day activities such as bathing, preparing meals, shopping, managing finances, etc.?: No Are you currently unemployed and looking for a job?: No Are you interested in more education?: No Please select the resources that you would like help with: None Currently or been in a relationship where the following occur: No concerns reported THRIVE Score: 0 AUDIT C Alcohol Use Questionnaire (AUDIT-C) 1. How often do you have a drink containing alcohol?: Monthly or less 2. How many drinks containing alcohol do you have on a typical day when you are drinking?: 1 or 2 3. How often do you have six or more drinks on one occasion?: Never Total Score: 1 Score Reviewed/Action Taken: No CLEMENTE-7 AMB Questionnaire CLEMENTE-7 Date CLEMENTE - 7 assessed: 11/03/24 Feeling nervous, anxious, or on edge: 0 = Not at all Not being able to stop or control worryin = Not at all Worrying too much about different things: 0 = Not at all Trouble relaxin = Not at all Being so restless that it is hard to sit still: 0 = Not at all Becoming easily annoyed or irritable: 0 = Not at all Feeling afraid as if something awful might happen: 0 = Not at all Total CLEMENTE-7 score (0-4 normal; 5-9 mild; 10-14 moderate; 15-21 severe): 0 Source: Developed by Drs. Andi Zarate, Jenna Tellez, Giovanni Walton and colleagues, with an educational dandy from [employer] CLEMENTE-7 Assessment Billing CLEMENTE-7 Assessment Tool: CLEMENTE-7 Assessment 36437 Review of Systems Const Details: - Musculoskeletal: Reports chronic back and leg pain, denies recent falls or loss of bladder control. - Integumentary: Reports infection on the right third toe. - Endocrine: Reports management of Type 2 Diabetes Mellitus with insulin and Ozempic. All systems reviewed & are unremarkable except as noted in HPI and below Physical exam (Primary Care) Vital Signs: Last Vital Signs Temp 98.0 F 01/10/25 14:52 Pulse 62 01/10/25 14:52 Resp 14 01/10/25 14:52 BP 115/59 L 01/10/25 14:52 Pulse Ox 94 01/10/25 14:52 Oxygen Delivery Method Room Air 01/10/25 14:52 Care Plan Goal for BP management: <140/90 at Goal BMI result Body Mass Index 30.7 BMI Assessment/Plan discussion: High BMI High, discussed plan: lifestyle, weight reduction, dietary, physical activity, alcohol moderation and other Tobacco/Smoking Status: Tobacco use Status Tobacco use date assessed 11/03/24 01/10/25 14:53 Patient Tobacco Use Status Former Tobacco user 01/10/25 14:53 Tobacco use type 12/08/24 14:38 PHQ-9: PHQ-9 Score PHQ-9: Total score 0 01/10/25 14:53 Depression Screening Interpretation: Negative Thrive Assessment: Date of Thrive Assessment Date Thrive assessed 11/03/24 01/10/25 14:53 Currently or been in a relationship where the following occur: No concerns reported Const Other: Appearance: Alert. Oriented X3. No acute distress. Head: Normal external exam. Normocephalic. Atraumatic. Eyes: Pupils are equal, round, and reactive to light. Extraocular movements intact. Conjunctiva and sclera normal. Eyelids normal. Throat: Pharynx normal. Uvula midline. Moist mucous membranes. Neck: Normal inspection. Neck supple. Full range of motion. Cardiovascular: Normal heart rate and rhythm. Respiratory: No respiratory distress. Painless inspiration. Back: No costovertebral angle tenderness. Full range of motion noted. Reports of back pain and leg pain, likely due to arthritis. Skin: Skin warm and dry. Normal skin color. Normal skin turgor. Scab noted over the right 3rd dorsal toe with mild soft tissue swelling and tenderness to palpation and mild surrounding erythema. There is no streaking, fluctuance, purulent drainage noted at this time. Extremities: No lower extremity edema. Extremities exhibit normal range of motion. Neuro: Oriented X 3. No motor deficit. No sensory deficit. Reflexes normal. Office Procedures Injection-Therapetic 1 mL B12 injection inserted to the patient's right posterior subcutaneous upper arm. Patient tolerated procedure well. No complications. Coding Level of Care Code Est Pt Level 4 (01974) Complex EM visit Add On G2211 Diagnoses B12 deficiency E53.8 Type 2 diabetes mellitus with hemoglobin A1c goal of less than 7.0% E11.9 Cellulitis L03.90 Back pain M54.9 Leg pain M79.606 Arthritis M19.90 Additional Codes CLEMENTE-7 Assessment Billing - CLEMENTE-7 Assessment Tool: CLEMENTE-7 Assessment 89778 ([id number]) PHQ-9 - 80247 - PHQ-9 Billing: Yes ([id number]) Time Spent (min) 40 Assessment & Plan Assessment & Plan (1) B12 deficiency: Code(s): E53.8 - Deficiency of other specified B group vitamins Category: Medical Plan: The patient received a Vitamin B12 injection during the visit to address her deficiency. (2) Type 2 diabetes mellitus with hemoglobin A1c goal of less than 7.0%: Code(s): E11.9 - Type 2 diabetes mellitus without complications Category: Medical Plan: The patient's Ozempic dosage was increased to 0.75 mg to improve glycemic control. She is advised to monitor her blood glucose levels and report any significant changes. (3) Cellulitis: Code(s): L03.90 - Cellulitis, unspecified Category: Medical Plan: The patient is advised to clean the infected area and apply a topical antibiotic, gentamycin, to manage the infection. An oral antibiotic, Keflex, was also prescribed to address potential cellulitis. (4) Back pain: Code(s): M54.9 - Dorsalgia, unspecified Category: Medical Plan: The patient is considering the use of muscle relaxants and physical therapy to manage her chronic back pain, which is likely due to arthritis. (5) Leg pain: Code(s): M79.606 - Pain in leg, unspecified Category: Medical Plan: The patient is considering the use of muscle relaxants and physical therapy to manage her chronic leg pain, which is likely due to arthritis. (6) Arthritis: Code(s): M19.90 - Unspecified osteoarthritis, unspecified site Category: Medical Plan: The patient has been using Tylenol for pain management and is considering additional treatments such as muscle relaxants and physical therapy. Plan Plan Patient was informed and verbally consented to the use of an ambient scribe for clinic note documentation during this visit. 1. Vitamin B12 Deficiency The patient received a Vitamin B12 injection during the visit to address her deficiency. 2. Type 2 Diabetes Mellitus The patient's Ozempic dosage was increased to 0.75 mg to improve glycemic control. She is advised to monitor her blood glucose levels and report any significant changes. 3. Toe Infection The patient is advised to clean the infected area and apply a topical antibiotic, gentamycin, to manage the infection. An oral antibiotic, Keflex, was also prescribed to address potential cellulitis. 4. Back Pain The patient is considering the use of muscle relaxants and physical therapy to manage her chronic back pain, which is likely due to arthritis. 5. Leg Pain The patient is considering the use of muscle relaxants and physical therapy to manage her chronic leg pain, which is likely due to arthritis. 6. Arthritis The patient has been using Tylenol for pain management and is considering additional treatments such as muscle relaxants and physical therapy. During the visit, I discussed with the patient the importance of managing her Type 2 Diabetes Mellitus through medication adjustments and regular monitoring of blood glucose levels. We also addressed her toe infection, recommending both topical and oral antibiotics to prevent further complications. For her chronic back and leg pain, we considered the use of muscle relaxants and physical therapy as potential treatment options. 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 - Monitor blood glucose levels regularly and report any significant changes. - Clean the infected toe area daily and apply gentamycin as prescribed. - Take Keflex as prescribed to manage the toe infection. - Consider using muscle relaxants and physical therapy for back and leg pain management.
[2025-01-10 14:52] VITALS: BP 115/59; PULSE 62; RESP 14; TEMP 36.7; O2SAT 94; BMI 30.7
--- OUTSIDE RECORDS SUMMARY | 2025-01-10 16:10 | XMS_ITS | Patient Health Record ---
Author Organization [facility] Address [address] [place] [address] Care Team Providers Care Toxicology Supervisor Name Role Phone Fernando Mccartyk Primary Care Provider Black, Lianna Unavailable [phone] Allergies Allergen (clinical drug ingredient) Drug/Non Drug [...] Not-Taking Cyanocobalamin Activ e Easy Touch Pen [place] Active PARoxetine HCl Activ e Extra-Depth Diabetic [...] Polyneuropathy due to type 2 diabetes mellitus ([id number]) Type 2 diabetes mellitus with diabetic polyneuropathy (E11.42) Active confirmed Vital Signs Blood pressure diastolic 70 mm Hg 11/17/2024 Height 5 ft 2 in in 11/17/2024 Blood pressure systolic 120 mm Hg 11/17/2024 Weight 165 lbs 11/17/2024 BMI 30.18 kg/m2 11/17/2024 Procedures Procedure Date Ordered Date Performed Result Body Sit e 90228-JOAO SKIN LESIONS, OVER 4 04/18/2024 N/A 41008-DCBX NAIL(S) 04/18/2024 N/A 25367-WSHY SKIN LESIONS, OVER 4 07/18/2024 N/A 11614-UVKR NAIL(S) 07/18/2024 N/A 97910-RHPF SKIN LESIONS, OVER 4 11/17/2024 N/A 34245-OQKN NAIL(S) 11/17/2024 N/A Encounters Encounter Location Date Provider Diagnosis [address] [address] 04/18/2024 Lianna Black Plantar fasciitis of left foot M72.2 ; Type 2 diabetes mellitus with diabetic polyneuropathy E11.42 ; Pain in left foot M79.672 ; Calcaneal spur, left foot M77.32 ; Interstitial myositis of left foot M60.172 ; Bursitis of left foot M77.52 and Xerosis of skin L85.[address] [address] 07/18/2024 Lianna Black Plantar fasciitis of left foot M72.2 ; Other hammer toe(s) (acquired), right foot M20.41 ; Type 2 diabetes mellitus with diabetic polyneuropathy E11.42 ; Calcaneal spur, left foot M77.32 ; Interstitial myositis of left foot M60.172 ; Bursitis of left foot M77.52 ; Xerosis of skin L85.3 and Other hammer toe(s) (acquired), left foot M20.[address] [address] 11/17/2024 Lianna Black Type 2 diabetes mellitus with diabetic polyneuropathy E11.[address] [address] 03/21/2024 Liannalópez Jacobo [address] [address] 04/15/2024 Lianna Donnell [address] [address] 07/18/2024 Lianna Jacobo Assessments Encounter Date Diagnosis [...] X ray : Foot, left 3V 12/22/2023 87054-FREZAKZ NAIL, 6 OR MORE 03/25/2011 79955-TDGLUYW NAIL, 6 OR MORE 06/13/2011 92315-GNSAWQK NAIL, 6 OR MORE 05/07/2012 11699-HGUGSMN NAIL, 6 OR MORE 08/13/2012 05698-COSBZFX NAIL, 6 OR MORE 11/16/2012 84163-DGXVAIC NAIL, 6 OR MORE 02/18/2013 84074-LKLPTJH NAIL, 6 OR MORE 05/24/2013 50962-TARCCVD NAIL, 6 OR MORE 08/30/2013 92296-VTIDEGW NAIL, 6 OR MORE 02/02/2014 02424-CBINWNZ NAIL, 6 OR MORE 07/31/2014 53443-JKYLNOP NAIL, 6 OR MORE 12/04/2014 76691-Ymgf Destruction, 1-14 03/25/2011 24256-Gmff Destruction, 1-14 06/13/2011 04793-Yskcyxjx Plate 06/13/2011 52131-Fsrxafax Plate 05/07/2012 57863-Gcqgmehv Plate 03/25/2011 37718-Knruqqvt Plate 12/04/2014 80316-Tklsytwl Plate 07/31/2014 08663-Jhqovkor Plate 02/02/2014 19758-Tkrhdfpt Plate 08/30/2013 93085-Obglyrsd Plate 05/24/2013 77941-Iiehnonn Plate 12/11/2016 13076-Robeajoc Plate 03/25/2018 53277-Jotzmpmo Plate 11/19/2020 62709-Brmvrcze Plate 06/10/2021 75044-Agzuepqb Plate Each Additional 22403-Woxqkxcz Plate Each Additional 40106- Debride <25 sq cm 12/04/2014 99584- Debride <25 sq cm 08/05/2018 70138- Debride <25 sq cm 07/31/2014 02523 I&D ABSCESS- SIMPLE,SINGLE 016 84360 I&D ABSCESS- SIMPLE,SINGLE 016 32102- I&D ABSCESS-COMPLICATED,MULTI 07/2015 63006- I&D ABSCESS-COMPLICATED,MULTI , J0702- INJECT TENDON ORIGIN/INSER T 06/06/2015, J0702- INJECT TENDON ORIGIN/INSER T 04/16/2015, J0702- INJECT or DRAIN, JOINT/BUR SA 04/16/2015, J0702- INJECT or DRAIN, JOINT/BUR SA 06/06/2015 28328-UZPG SKIN LESIONS, OVER 4 11/20/19 21 68662-PSNB SKIN LESIONS, OVER 4 07/27/19 21 33402-JFWX SKIN LESIONS, OVER 4 11/21/19 20 34821-WHZV SKIN LESIONS, OVER 4 02/27/20 20 02682-VHTM SKIN LESIONS, OVER 4 12/05/19 15 27190-DKTK SKIN LESIONS, OVER 4 05/24/19 14 76691-WASK SKIN LESIONS, OVER 4 08/31/19 14 99310-YPJL SKIN LESIONS, OVER 4 02/03/20 14 24851-QPFQ SKIN LESIONS, OVER 4 08/01/19 15 26329-FFII SKIN LESIONS, OVER 4 08/14/19 13 90487-TKWN SKIN LESIONS, OVER 4 02/19/20 13 41850-LMEQ SKIN LESIONS, OVER 4 11/17/19 13 64789-SBWE SKIN LESIONS, OVER 4 03/25/20 11 74733-HANX SKIN LESIONS, OVER 4 05/07/19 13 15823-PWWY SKIN LESIONS, OVER 4 06/13/19 12 74314-EBHQ SKIN LESIONS, OVER 4 06/10/19 22 57920-CAFG SKIN LESIONS, OVER 4 12/10/19 22 48341-BEFB SKIN LESIONS, OVER 4 06/17/19 23 37664-JTJT SKIN LESIONS, OVER 4 04/18/19 25 97462-BSIR SKIN LESIONS, OVER 4 12/23/19 23 08959-BYUQ SKIN LESIONS, OVER 4 06/29/19 24 59719-QLGP SKIN LESIONS, OVER 4 11/18/19 25 69415-FDCZ SKIN LESIONS, OVER 4 07/19/19 25 68023-LZRX SKIN LESIONS, 2 TO 4 03/25/20 18 48527-PSQT SKIN LESIONS, 2 TO 4 04/16/19 16 28796-QDYJ SKIN LESIONS, 2 TO 4 10/19/19 19 26648-SVGM SKIN LESIONS, 2 TO 4 02/01/20 19 28919-UFDJ SKIN LESIONS, 2 TO 4 05/09/19 20 82221-DEZT SKIN LESIONS, 2 TO 4 08/15/19 20 90552-OOVG SKIN LESIONS, 2 TO 4 06/06/19 16 72484-HCAL SKIN LESIONS, 2 TO 4 08/15/19 16 67657-YITN SKIN LESIONS, 2 TO 4 12/10/19 16 62956-TBQF SKIN LESIONS, 2 TO 4 12/12/19 17 54866-SYMK SKIN LESIONS, 2 TO 4 01/15/20 18 20892-DHGZ SKIN LESIONS, 2 TO 4 07/20/19 19 20676-JLPR NAIL(S) 07/19/2018 33710-VATJ NAIL(S) 03/25/2018 69436-QLRU NAIL(S) 01/14/2018 14820-ILNA NAIL(S) 12/10/2015 90665-QIHY NAIL(S) 12/11/2016 20269-NWZD NAIL(S) 08/15/2019 40758-VVRB NAIL(S) 05/09/2019 25807-MDUW NAIL(S) 01/31/2019 64691-UYVL NAIL(S) 10/18/2018 38481-VJYG NAIL(S) 02/27/2020 88570-MMVL NAIL(S) 07/26/2020 33296-GHJG NAIL(S) 11/19/2020 84277-HTVR NAIL(S) 06/10/2021 74222-ZGAL NAIL(S) 06/16/2022 34983-QWTZ NAIL(S) 12/09/2021 45994-RDFY NAIL(S) 06/29/2023 03042-TEIE NAIL(S) 12/22/2022 92201-ZBOM NAIL(S) 04/18/2024 38067-VIUE NAIL(S) 07/18/2024 04405-YMER NAIL(S) 11/17/2024 T2782-UJYYQYBP DYSTROPHIC NAILS ANY # V7492-WXFPTUTC DYSTROPHIC NAILS ANY # L9699-PYGGXTUQ DYSTROPHIC NAILS ANY # 21603 - Shave Biopsy of Skin Lesion 11/2018 Next Appt Details Provider Name:Lianna Mcgowan Donnell , 03/20/2025 11:15:00 AM, [address], [place], [address], Insurance Providers Payer Name Payer Address Payer Phone Subscriber Number Group Number Insured Name Patient Relationship to Insured Coverage Start Date Coverage End Date Medicare [employer] [address] [place] [address] [id number] Bianca Hunt Self - patient is the insured [employer] [address] [place] [address] [phone] [id number] Bianca Hunt Self - patient is the [...] removed 2013, 2014 Hospitalization History Reason Date(Month/Year) [facility] ER- coughing, sick 03/2024 [facility]- Water around heart and lungs [facility]- Abdominal Pain-Infection - antibiot ic 06/06 [facility]- couldnt catch breath 2018 [facility]- Pericarditis/ Pleurral Effusion 05/15 018
--- OUTSIDE RECORDS SUMMARY | 2025-01-10 16:10 | XMS_ITS | Clinical Summary ---
Author Organization [facility] Address [address] [place] [address] Phone Care Team Providers Care Marketing Rotation Associate Name Role Phone Reji Molina MD Primary Care Provider [phone] Allergies Active Allergy Reactions Criticality Noted Date [...] to complete this topic Insurance [facility] Medicare Medicaid [place] Medicare [facility] Medicaid [place] Care Teams Marketing Rotation Associate Relationship Specialty Start Date End Date Reji Molina MD [address] [place] [address] PCP - General 04/23/20
== END 2025-01-10 15:35 | disposition home or self-care (01) ==
LOC: HO.HMCSH 14:48
PROVIDERS: PCP Physician Assistant Medical; Visit Provider Physician Assistant Medical
DX: E53.8 Deficiency of other specified B group vitamins (principal); E11.9 Type 2 diabetes mellitus without complications; L03.90 Cellulitis, unspecified; M54.9 Dorsalgia, unspecified; M79.606 Pain in leg, unspecified; M19.90 Unspecified osteoarthritis, unspecified site

== ENCOUNTER → 2025-01-10 14:48 | Outpatient (BNVA) | payer MEDICARE, SELFPAY | PROVIDERS: PCP Physician Assistant Medical; Visit Provider Physician Assistant Medical | DX: E11.65 Type 2 diabetes mellitus with hyperglycemia (principal); E53.8 Deficiency of other specified B group vitamins; L03.90 Cellulitis, unspecified; M19.09 Primary osteoarthritis, other specified site; M47.9 Spondylosis, unspecified; E66.9 Obesity, unspecified; Z68.30 Body mass index [BMI] 30.0-30.9, adult; Z79.899 Other long term (current) drug therapy | CPT/HCPCS: 96127; 99212 ==

== ENCOUNTER 2025-01-30 10:54 | Outpatient (AMB) | payer MEDICARE, SELFPAY ==
[2025-01-30 10:58] VITALS: BP 110/61; PULSE 72; TEMP 36.1; O2SAT 92; BMI 30.8
--- NOTE | 2025-01-30 10:58 | MHC.PC.OV ---
Vital Signs 01/30/25 10:58 Height 5 ft 0.87 in Weight 162 lb 8 oz BMI 30.8 BP 110/61 Blood Pressure Location Lt brachial Position Sitting Pulse 72 Pulse Source Pulse Oximeter Temp 96.9 F Temp Source Temporal Artery Scan Pulse Oximetry (%) 92 Oxygen Delivery Method Room Air Intake Visit Reasons: Leg and back pain Telecommunication Tower Technician Required: No Accompanied by: Self / Same As Patient Allergies baclofen Adverse Reaction (Unknown, Verified 01/30/25 11:47) CONFUSION, OUT OF IT oxycodone (From Percocet) Adverse Reaction (Unknown, Verified 01/30/25 11:47) NAUSEA Medication List - Last Reconciled 01/30/25 by Rosalia Mohr PA-C acetaminophen ER (Tylenol Arthritis Pain) 1,300 mg (2 x 650 mg) PO Q12H alprazolam 1 mg PO TID apixaban (Eliquis) 5 mg PO BID atorvastatin 40 mg PO BEDTIME blood pressure monitor Check blood pressure daily blood sugar diagnostic (Contour Next Test Strips) As directed 3 times a day with meals 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 meter (Contour Next One Meter) Check glucose 3 times a day with meals 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 sensor (FreeStyle Sanjeev 3 Sensor device) As directed E11.8 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 sensor (FreeStyle Sanjeev 3 Plus Sensor device) Check glucose 3 times a day with meals 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,income tax administrator,cont (FreeStyle Sanjeev 3 [place]) As directed E&M code 11.8 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,income tax administrator,cont (FreeStyle Sanjeev 3 [place]) Check glucose 3 times a day with meals carbidopa-levodopa 25-100 mg 1 tab PO TID cholecalciferol (vitamin D3) 50 mcg PO DAILY cyanocobalamin (vitamin B-12) (Vitamin B-12) 100 mcg PO DAILY cyanocobalamin (vitamin B-12) 1,000 mcg IM Q28D 1 month cyclobenzaprine 10 mg PO TID diclofenac sodium 1% (Voltaren Arthritis Pain) 4 grams topical QID furosemide (Lasix) 40 mg PO DAILY gabapentin 100 mg PO TID 30 days gentamicin 0.1% 1 appl topical BID insulin degludec (Tresiba FlexTouch U-100 insulin) 50 units (0.5 mL) subcut DAILY 3 months insulin lispro (Humalog KwikPen (U-100) Insulin) 15 units (0.15 mL) subcut TID 90 days lancets As directed levothyroxine 112 mcg PO DAILY losartan 50 mg PO DAILY 90 days metoprolol tartrate 25 mg PO BID paroxetine HCl 40 mg PO DAILY pen needle, diabetic 4x daily semaglutide (Ozempic) 1 mg (0.75 mL) subcut QWEEK syringe with needle (BD Tuberculin Syringe) For vitamin B12 injections monthly Tobacco use date assessed: 01/30/25 Fall risk assessment: No Falls in past year Last assessed Fall Risk: 01/30/25 Dental Screening Dental Screen Date: 01/30/25 Did you have a dental visit in the last 12 months?: Yes Was dental information given to patient?: Patient has dentist HPI Leg and back pain HPI Details The patient is a 80-year-old female presenting with leg and back pain. The pain is attributed to osteoarthritis, which has been persistent and severe, affecting her daily activities. She reports that the pain worsens with weather changes and has not attended physical therapy due to other appointments. The patient also has a history of diabetes mellitus, with a recent hemoglobin A1c of 9.7, down from 10 in October. She is currently on insulin therapy with Tresiba and Humalog, as well as Ozempic, but has not experienced weight loss. She was previously on metformin and Jardiance, but these were discontinued for unspecified reasons. The patient is being treated for a wound on her right third toe, which is healing well under the care of a wound clinic. She changes the dressing daily and attends regular follow-ups at the clinic. Additionally, the patient has a history of vitamin B12 deficiency, for which she receives monthly injections. There is a plan to assess whether she can transition to oral supplementation based on her B12 levels. Social History - Exercise: Limited due to leg pain from osteoarthritis. [facility] Medical History Wound, open, toe Arthritis Leg pain Back pain Cellulitis Neuropathic pain Iron overload B12 deficiency Insomnia Cerebellar atrophy Cerebral microvascular disease Peripheral neuropathy History of mammogram (~11/06/23) Obesity (BMI 30-39.9) Anxiety Osteopenia Type 2 diabetes mellitus with hemoglobin A1c goal of less than 7.0% Nocturnal hypoxia LOLY (obstructive sleep apnea) (HFpEF) heart failure with preserved ejection fraction CKD (chronic kidney disease) Pulmonary hypertension Atrial fibrillation Persistent atrial fibrillation CAD (coronary artery disease) Vitamin D deficiency HLD (hyperlipidemia) T2DM (type 2 diabetes mellitus) Acute exacerbation of congestive heart failure Hypertension Parkinson disease Hypothyroid Diabetes Surgical History Hx of cardiac cath (~01/2017) Hx of carpal tunnel repair Hx of knee surgery Hx of hysterectomy Family History Father No problems noted. Mother T2DM (type 2 diabetes mellitus) Brother T2DM (type 2 diabetes mellitus) Social History Household Members: None Housing: Apartment Alcohol intake: current Alcohol intake frequency: holidays/special occasions only Alcohol type: wine Patient Tobacco Use Status: Former Tobacco user Second Hand Smoke Exposure: No Advance Directives Date on File: 03/22/20 service: No Current occupational status: retired Cognitive needs: No Hearing needs: No Vision needs: Yes (rx glasses) Questionnaire PHQ-9 Over the last 2 weeks, how often have you been bothered by any of the following problems? 1. Little interest or pleasure in doing things: not at all 2. Feeling down, depressed, or hopeless: not at all 3. Trouble falling or staying asleep, or sleeping too much: not at all 4. Feeling tired or having little energy: not at all 5. Poor appetite or overeating: not at all 6. Feeling bad about yourself - or that you are a failure or have let yourself or your family down: not at all 7. Trouble concentrating on things, such as reading the newspaper or watching television: not at all 8. Moving or speaking so slowly that other people could have noticed. Or the opposite - being so fidgety or restless that you have been moving around a lot more than usual: not at all 9. Thoughts that you would be better off or of hurting yourself in some way: not at all Total score: 0 Depression Screening Interpretation: Negative Depression Screening Done: Yes 80362 - PHQ-9 Billing: Yes Source: Developed by Drs. Andi Zarate, Jenna Tellez, Giovanni Walton and colleagues, with an educational dandy from [employer]. Thrive Questionnaire Date Thrive assessed: 01/30/25 I am a: Patient What is your living situation today?: I have a steady place to live Within the past 12 months, did the food you bought not last and you didn't have the money to get more?: Never true Within the past 12 months, did you worry whether your food would run out before you got money to buy more?: Never true Do you have trouble paying for medicines?: No Do you have trouble getting transportation to medical appointments?: No Do you have trouble paying your heating and electricity bill?: No Do you have trouble taking care of your child, family member or friend?: No Do you have trouble with day-to-day activities such as bathing, preparing meals, shopping, managing finances, etc.?: No Are you currently unemployed and looking for a job?: No Are you interested in more education?: No Please select the resources that you would like help with: None Currently or been in a relationship where the following occur: No concerns reported THRIVE Score: 0 AUDIT C Alcohol Use Questionnaire (AUDIT-C) 1. How often do you have a drink containing alcohol?: Monthly or less 2. How many drinks containing alcohol do you have on a typical day when you are drinking?: 1 or 2 3. How often do you have six or more drinks on one occasion?: Never Total Score: 1 Score Reviewed/Action Taken: No CLEMENTE-7 AMB Questionnaire CLEMENTE-7 Date CLEMENTE - 7 assessed: 01/30/25 Feeling nervous, anxious, or on edge: 0 = Not at all Not being able to stop or control worryin = Not at all Worrying too much about different things: 0 = Not at all Trouble relaxin = Not at all Being so restless that it is hard to sit still: 0 = Not at all Becoming easily annoyed or irritable: 0 = Not at all Feeling afraid as if something awful might happen: 0 = Not at all Total CLEMENTE-7 score (0-4 normal; 5-9 mild; 10-14 moderate; 15-21 severe): 0 Source: Developed by Drs. Andi Zarate, Giovanni Sosa and colleagues, with an educational dandy from [employer]. CLEMENTE-7 Assessment Billing CLEMENTE-7 Assessment Tool: CLEMENTE-7 Assessment 07971 Review of Systems Const Details: - Musculoskeletal: Reports severe leg and back pain attributed to osteoarthritis. - Endocrine: Reports diabetes mellitus with recent A1c of 9.7. - Dermatological: Reports wound on right third toe, currently healing. All systems reviewed & are unremarkable except as noted in HPI and below Physical exam (Primary Care) Vital Signs: Last Vital Signs Temp 96.9 F 01/30/25 10:58 Pulse 72 01/30/25 10:58 BP 110/61 01/30/25 10:58 Pulse Ox 92 01/30/25 10:58 Oxygen Delivery Method Room Air 01/30/25 10:58 Care Plan Goal for BP management: <140/90 at Goal BMI result Body Mass Index 30.8 BMI Assessment/Plan discussion: High BMI High, discussed plan: lifestyle, weight reduction, dietary, physical activity, alcohol moderation and other Tobacco/Smoking Status: Tobacco use Status Tobacco use date assessed 01/30/25 01/30/25 11:01 Patient Tobacco Use Status Former Tobacco user 01/30/25 11:01 Tobacco use type 01/10/25 15:34 PHQ-9: PHQ-9 Score PHQ-9: Total score 0 01/30/25 11:23 Depression Screening Interpretation: Negative Thrive Assessment: Date of Thrive Assessment Date Thrive assessed 01/30/25 01/30/25 11:01 Currently or been in a relationship where the following occur: No concerns reported Const Other: Appearance: Alert. Oriented X3. No acute distress. Head: Normal external exam. Normocephalic. Atraumatic. Eyes: Pupils are equal, round, and reactive to light. Extraocular movements intact. Conjunctiva and sclera normal. Eyelids normal. Throat: Pharynx normal. Uvula midline. Moist mucous membranes. Neck: Normal inspection. Neck supple. Full range of motion. Cardiovascular: Normal heart rate and rhythm. Respiratory: No respiratory distress. Painless inspiration. Back: Full range of motion noted. Skin: Skin warm and dry. Normal skin color. Normal skin turgor. Improving wound to right dorsal aspect of 3rd toe. Mild surrounding erythema there is no advancing erythema, streaking, induration, fluctuance, purulent drainage, foul odor noted at this time. No additional rashes/lesions/lacerations noted. Extremities: Extremities exhibit normal range of motion. Neuro: Oriented X 3. No motor deficit. No sensory deficit. Reflexes normal. Results AMB Hemoglobin A1c AMB Hemoglobin A1c 9.7 % Last Edit by Arabella Valverde CMA on 01/30/25 11:35 Results Reviewed Results Reviewed: Laboratory Last Values Hgb A1c (Clinic) 9.7 % (4.0-6.0) H 01/30/25 11:23 - Labs: Hemoglobin A1c 9.7, previously 10 in October. Coding Level of Care Code Est Pt Level 4 (72612) Complex EM visit Add On G2211 Diagnoses Arthritis M19.90 Type 2 diabetes mellitus with hemoglobin A1c goal of less than 7.0% E11.9 B12 deficiency E53.8 Wound, open, toe S91.109A Additional Codes CLEMENTE-7 Assessment Billing - CLEMENTE-7 Assessment Tool: CLEMENTE-7 Assessment 20343 ([id number]) PHQ-9 - 16383 - PHQ-9 Billing: Yes ([id number]) Assessment & Plan Assessment & Plan (1) Arthritis: Code(s): M19.90 - Unspecified osteoarthritis, unspecified site Category: Medical Plan: The patient is experiencing severe leg and back pain due to osteoarthritis, which worsens with weather changes. She has not attended physical therapy due to scheduling conflicts with other appointments. A referral to pain management and physical therapy has been discussed to help manage her symptoms. Will also send arthritis extra-strength Tylenol, she is currently taking Flexeril at bedtime will also provide gabapentin. She will continue Voltaren cream. (2) Type 2 diabetes mellitus with hemoglobin A1c goal of less than 7.0%: Code(s): E11.9 - Type 2 diabetes mellitus without complications Category: Medical Plan: The patient's diabetes mellitus is currently managed with Tresiba, Humalog, and Ozempic. Her hemoglobin A1c has decreased from 10 to 9.7, but further improvement is needed. Adjustments to her insulin regimen have been recommended, including increasing Tresiba to 50 units at bedtime and Humalog to 15 units three times a day. (3) B12 deficiency: Code(s): E53.8 - Deficiency of other specified B group vitamins Category: Medical Plan: The patient receives monthly B12 injections for vitamin B12 deficiency. Will transition to oral vitamin B12 supplements and reassess patient's vitamin B12 in 3 months to ensure patient can continue with oral supplements rather than monthly injections. (4) Wound, open, toe: Code(s): S91.109A - Unspecified open wound of unspecified toe(s) without damage to nail, initial encounter Category: Medical Plan: The wound on the patient's right third toe is healing well under the care of a wound clinic. She is advised to continue daily dressing changes and attend regular follow-ups at the clinic. Plan Plan Patient was informed and verbally consented to the use of an ambient scribe for clinic note documentation during this visit. 1. Osteoarthritis The patient is experiencing severe leg and back pain due to osteoarthritis, which worsens with weather changes. She has not attended physical therapy due to scheduling conflicts with other appointments. A referral to pain management and physical therapy has been discussed to help manage her symptoms. 2. Diabetes Mellitus The patient's diabetes mellitus is currently managed with Tresiba, Humalog, and Ozempic. Her hemoglobin A1c has decreased from 10 to 9.7, but further improvement is needed. Adjustments to her insulin regimen have been recommended, including increasing Tresiba to 50 units at bedtime and Humalog to 15 units three times a day. 3. Vitamin B12 Deficiency The patient receives monthly B12 injections for vitamin B12 deficiency. A plan is in place to evaluate her B12 levels to determine if she can transition to oral supplementation. 4. Wound On Right Third Toe The wound on the patient's right third toe is healing well under the care of a wound clinic. She is advised to continue daily dressing changes and attend regular follow-ups at the clinic. I discussed with the patient the management of her osteoarthritis, including the option of physical therapy and referral to pain management for further evaluation and treatment options. We reviewed her diabetes management plan, emphasizing the need to adjust her insulin regimen to better control her blood glucose levels. I also explained the importance of monitoring her B12 levels to determine if she can switch from injections to oral supplementation. Orders: Orders AMB Hemoglobin A1c Today Z13.9 - Encounter for screening, unspecified PT Evaluation and Treatment Today M19.90 - Unspecified osteoarthritis, unspecified site, M54.9 - Dorsalgia, unspecified, M79.606 - Pain in leg, unspecified Vitamin B12 and Folate Today Z00.00 - Encounter for general adult medical examination without abnormal findings Referrals Pain Management Referral M19.90 - Unspecified osteoarthritis, unspecified site, M54.9 - Dorsalgia, unspecified, M79.606 - Pain in leg, unspecified Medications: New gabapentin 100 mg PO TID 90 tabs 3RF 30 days acetaminophen ER (Tylenol Arthritis Pain) 1,300 mg (2 x 650 mg) PO Q12H 60 tabs 3RF cyanocobalamin (vitamin B-12) (Vitamin B-12) 100 mcg PO DAILY 90 tabs 3RF Changed From insulin degludec (Tresiba FlexTouch U-100 insulin) 38 units (0.38 mL) subcut DAILY 15 mL 0RF E11.65 - Type 2 diabetes mellitus with hyperglycemia, Z79.4 - 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 helper (current) use of insulin To insulin degludec (Tresiba FlexTouch U-100 insulin) 50 units (0.5 mL) subcut DAILY 45 mL 3RF 3 months E11.65 - Type 2 diabetes mellitus with hyperglycemia, Z79.4 - buttermaker helper (current) use of insulin From insulin lispro (Humalog KwikPen (U-100) Insulin) 7 units (0.07 mL) subcut TID 90 days 18.9 mL 3RF To insulin lispro (Humalog KwikPen (U-100) Insulin) 15 units (0.15 mL) subcut TID 40.5 mL 3RF 90 days Refilled diclofenac sodium 1% (Voltaren Arthritis Pain) apply to single knee, ankle, foot; for foot includes sole/toes/top of foot 4 grams topical QID 100 grams 1RF Patient Instructions: - Continue taking prescribed medications, including Tresiba, Humalog, and Ozempic, as directed. - Attend physical therapy sessions and follow up with pain management as referred. - Monitor blood glucose levels daily and report any significant changes. - Continue daily dressing changes for the toe wound and attend follow-up appointments at the wound clinic. - Schedule and complete blood work to assess B12 levels.
== END 2025-01-30 11:46 | disposition home or self-care (01) ==
LOC: HO.HMCSH 10:54
PROVIDERS: PCP Internal Medicine; Visit Provider Physician Assistant Medical
DX: M19.90 Unspecified osteoarthritis, unspecified site (principal); E11.9 Type 2 diabetes mellitus without complications; E53.8 Deficiency of other specified B group vitamins; S91.109A Unspecified open wound of unspecified toe(s) without damage to nail, initial encounter; Z13.9 Encounter for screening, unspecified

== ENCOUNTER 2025-01-30 10:54 | Outpatient (REF) | payer MEDICARE, SELFPAY ==
[2025-01-30 14:27] LABS: Folate 12.3 ng/mL (> or = 4.0); Vitamin B12 > 2000 pg/mL (200-900)
== END 2025-01-30 10:55 | disposition home or self-care (01) ==
LOC: HO.HMGCLDS 10:54
PROVIDERS: PCP Internal Medicine; Visit Provider Physician Assistant Medical
DX: Z00.00 Encounter for general adult medical examination without abnormal findings (principal); E11.9 Type 2 diabetes mellitus without complications; E53.8 Deficiency of other specified B group vitamins; M19.09 Primary osteoarthritis, other specified site; S91.104A Unspecified open wound of right lesser toe(s) without damage to nail, initial encounter; Z79.01 Long term (current) use of anticoagulants; Z79.4 Long term (current) use of insulin; Z79.890 Hormone replacement therapy; Z79.899 Other long term (current) drug therapy
CPT/HCPCS: 36415; 82607; 82746; 83036; 96127; 99212

== ENCOUNTER 2025-02-20 13:50 | Outpatient (AMB) | payer MEDICARE, SELFPAY ==
--- NOTE | 2025-02-20 14:29 | MHC.OFFVIS ---
Intake Visit Reasons: 3M PD, facial pain Allergies baclofen Adverse Reaction (Unknown, Verified 02/20/25 14:32) CONFUSION, OUT OF IT oxycodone (From Percocet) Adverse Reaction (Unknown, Verified 02/20/25 14:32) NAUSEA Medication List - Last Reconciled 02/20/25 by Lori South CNP acetaminophen ER (Tylenol Arthritis Pain) 1,300 mg (2 x 650 mg) PO Q12H alprazolam 1 mg PO TID apixaban (Eliquis) 5 mg PO BID atorvastatin 40 mg PO BEDTIME blood pressure monitor Check blood pressure daily blood sugar diagnostic (Contour Next Test Strips) DIRECTED 3 TIMES A DAY WITH MEALS 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 meter (Contour Next One Meter) Check glucose 3 times a day with meals 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 sensor (FreeStyle Sanjeev 3 Sensor device) As directed E11.8 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 sensor (FreeStyle Sanjeev 3 Plus Sensor device) Check glucose 3 times a day with meals 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,state editor,cont (FreeStyle Sanjeev 3 [place]) As directed E&M code 11.8 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,state editor,cont (FreeStyle Sanjeev 3 [place]) Check glucose 3 times a day with meals carbidopa-levodopa 25-100 mg 1 tab PO TID cholecalciferol (vitamin D3) 50 mcg PO DAILY cyanocobalamin (vitamin B-12) (Vitamin B-12) 100 mcg PO DAILY cyanocobalamin (vitamin B-12) 1,000 mcg IM Q28D 1 month cyclobenzaprine 10 mg PO TID diclofenac sodium 1% (Voltaren Arthritis Pain) 4 grams topical QID furosemide (Lasix) 40 mg PO DAILY gabapentin 100 mg PO TID 30 days gentamicin 0.1% 1 appl topical BID insulin degludec (Tresiba FlexTouch U-100 insulin) 50 units (0.5 mL) subcut DAILY 3 months insulin lispro (Humalog KwikPen (U-100) Insulin) 15 units (0.15 mL) subcut TID 90 days lancets As directed levothyroxine 112 mcg PO DAILY losartan 50 mg PO DAILY 90 days metoprolol tartrate 25 mg PO BID paroxetine HCl 40 mg PO DAILY pen needle, diabetic 4x daily semaglutide (Ozempic) 1 mg (0.75 mL) subcut QWEEK syringe with needle (BD Tuberculin Syringe) For vitamin B12 injections monthly HPI Comments Details: 80-year-old woman with HTN, HLD, DM, atrial fibb, parkinsonism, and right sided facial pain. She was doing okay. She did not try gabapentin for right sided facial pain, but pain was better. It was not that often and pain was not as bad when it occured. She was taking carbidopa-levodopa three times a day. Tremor was stable and may even be a little less. No functional impairment. No difficulty eating, drinking, or swallowing. Mobility was okay, no falls. No difficulty turning in bed or getting up from chair. She had more arthritis pains to back and legs, and had appointment with pain clinic later this week. [facility] Medical History Wound, open, toe Arthritis Leg pain Back pain Cellulitis Neuropathic pain Iron overload B12 deficiency Insomnia Cerebellar atrophy Cerebral microvascular disease Peripheral neuropathy History of mammogram (~11/06/23) Obesity (BMI 30-39.9) Anxiety Osteopenia Type 2 diabetes mellitus with hemoglobin A1c goal of less than 7.0% Nocturnal hypoxia LOLY (obstructive sleep apnea) (HFpEF) heart failure with preserved ejection fraction CKD (chronic kidney disease) Pulmonary hypertension Atrial fibrillation Persistent atrial fibrillation CAD (coronary artery disease) Vitamin D deficiency HLD (hyperlipidemia) T2DM (type 2 diabetes mellitus) Acute exacerbation of congestive heart failure Hypertension Parkinson disease Hypothyroid Diabetes Surgical History Hx of cardiac cath (~01/2017) Hx of carpal tunnel repair Hx of knee surgery Hx of hysterectomy Family History Father No problems noted. Mother T2DM (type 2 diabetes mellitus) Brother T2DM (type 2 diabetes mellitus) Social History Household Members: None Housing: Apartment Alcohol intake: current Alcohol intake frequency: holidays/special occasions only Alcohol type: wine Patient Tobacco Use Status: Former Tobacco user Second Hand Smoke Exposure: No Advance Directives Date on File: 03/22/20 service: No Current occupational status: retired Cognitive needs: No Hearing needs: No Vision needs: Yes (rx glasses) Review of Systems Const Denies chills, Denies daytime sleepiness, Reports difficulty sleeping, Denies fatigue, Denies fever(s), Denies frequent falls, Denies headache(s), Denies increased appetite, Denies poor appetite, Denies snoring, Denies weakness, Denies weight gain and Denies weight loss Eyes Denies loss of vision ENT Denies vertigo, Denies dizziness and Denies headache(s) Card Denies chest pain at rest, Denies chest pain with activity, Denies syncope, Denies leg edema and Denies palpitations Resp Denies snoring GI Denies constipation, Denies heartburn, Denies diarrhea and Denies nausea Denies urinary frequency, Denies urinary incontinence and Denies urinary urgency Musc Denies abnormal gait, Denies numbness and Denies tingling Skin/Breast Denies dry skin and Denies rash Neuro Denies abnormal gait, Denies vertigo, Denies dizziness, Denies syncope, Denies frequent falls, Denies headache(s), Denies lack of coordination, Denies loss of vision, Denies memory loss, Denies numbness, Denies restless legs, Denies seizure-like activity, Denies tingling, Denies paresthesias, Denies tremor(s) and Denies weakness Psych Denies anxiety, Denies depression, Denies auditory hallucinations, Denies memory loss, Denies visual hallucinations and Denies suicidal ideation Endo Denies fatigue and Denies palpitations Physical Exam Const Other: General Appearance:? normal, in no acute distress. Skin:? no rashes, no significant birthmarks. Heart:? S1, S2 normal, no murmurs. Lungs:? clear anteriorly and posteriorly. Extremities:? no edema. Psych:? alert, oriented, cognitive function intact, cooperative with exam. Neuro Other: Mental Status:?Normal attention, orientation, memory and affect.? Cranial Nerves:?Pupils are equal, round and reactive to light. External occular muscles are intact. Visual stiles are full. Face is symmetrical. Facial sensations are normal. Tongue is midline. Palate elevates symmetrically. Shoulder shrugging is normal. Hearing to bedside conversation is normal. Coordination:?No ataxia,?no titubation.? Gait Exam: Decreased arm swing. Cerebellar Signs:?[id number] is okay. Extrapyramidal System:?Slightly decreased facial expression and blinking. Decreased arm swing. Mild hand resting tremor. Pronator Drift:?Not present.? Involuntary Movements:?Mild hand and chin resting tremor. Speech:?Mild speech tremor.? Results Reviewed Results Reviewed: MRI brain WO at [facility] in October 2016: Mild cerebral and cerebelar atrophy with mild MVD EMG/NCS LEs at office in 2018: WNL Assessment & Plan Assessment & Plan (1) Parkinson disease: Code(s): G20 - Parkinson's disease Category: Medical Plan: Continue carbidopa-levodopa 25-100mg 1 tablet three times a day. (2) Facial pain: Code(s): R51.9 - Headache, unspecified Category: Medical Plan: She did not try gabapentin, but pain was better and not happening as often. No medication was needed at this time. Follow up in 6 months or sooner as needed. Medications: Changed From carbidopa-levodopa 25-100 mg 1 tab PO TID To carbidopa-levodopa 25-100 mg 1 tab PO TID 270 tabs 1RF 90 days Coding Level of Care Code Est Pt Level 4 (10156) Diagnoses Parkinson disease G20 Facial pain R51.9
== END 2025-02-20 14:48 | disposition home or self-care (01) ==
LOC: HO.HSM 13:50
PROVIDERS: PCP Internal Medicine; Visit Provider Registered Nurse
DX: G20.C Parkinsonism, unspecified (principal); R51.9 Headache, unspecified
CPT/HCPCS: 99214

== ENCOUNTER → 2025-02-20 13:50 | Outpatient (BNVA) | payer MEDICARE, SELFPAY | PROVIDERS: PCP Internal Medicine; Visit Provider Registered Nurse | DX: G20.C Parkinsonism, unspecified (principal); R51.9 Headache, unspecified | CPT/HCPCS: 99212 ==

== ENCOUNTER 2025-02-24 13:05 | Outpatient (AMB) | payer MEDICARE, SELFPAY ==
--- NOTE | 2025-02-24 13:05 | A.OFFVIS_ITS ---
Vital Signs 02/24/25 13:10 Height 5 ft 0.87 in Weight 163 lb BMI 30.9 BP 121/74 Blood Pressure Location Rt brachial Position Sitting Pulse 90 Pulse Source Pulse Oximeter Pulse Oximetry (%) 99 Oxygen Delivery Method Room Air Intake Visit Reasons: Dorsalgia Intake Note: Pain today 12/21 Cardboard Cutter Required: No Accompanied by: Self / Same As Patient Allergies baclofen Adverse Reaction (Unknown, Verified 02/24/25 13:13) CONFUSION, OUT OF IT oxycodone (From Percocet) Adverse Reaction (Unknown, Verified 02/24/25 13:13) NAUSEA HPI Comments Details: The patient is a 80-year-old female presenting with lower back pain radiating to both legs. The pain started about 1-2 months ago and initially affected the right side but has since progressed to both sides. The pain is described as severe, with a rating of 10/10 in the morning and 6/10 at night, and is associated with pinching, cramping, pulling, tugging, and burning sensations. The patient has a history of diabetes mellitus with uncontrolled blood sugar, with an A1c of 9.7, which precludes the use of therapeutic injections and certain procedures such peripheral nerve stimulation for pain management. She has attempted physical therapy and chiropractic manipulation without relief. The patient also has moderate arthritis in her hips and mild arthritis in her lumbar spine, with degenerative disc changes and scoliosis. She has not had any recent MRI imaging, and her previous attempts at physical therapy were unsuccessful. The patient has a complex medical history including coronary artery disease with persistent atrial fibrillation, chronic kidney disease, heart failure with preserved ejection fraction, osteopenia, and Parkinson's disease. She also has a history of peripheral neuropathy and an active toe ulcer due to inappropriate footwear, which is being managed at a Wound clinic. - Onset: Approximately one-two months ago - Quality: Pinching, cramping, pulling, tugging, burning, aching - Location: Lower back radiating to both legs - Severity: 10/10 in the morning, 6/10 at night - Exacerbating factors: Standing on toes increases pain, walking, prolonged standing, getting up from sitting position - Interference: Affects walking and daily activities, causes sleep disturbances - Affect: Pain limits walking and daily activities - Analgesia: No current effective pain relief from previous interventions - Activities of Daily Living: Pain affects ability to walk and sleep Oswestry Low Back Pain Disability Score=20 [facility] Medical History (Updated 02/26/25 @ 23:02 by TRACY Jordan) Wound, open, toe Arthritis Leg pain Back pain Cellulitis Neuropathic pain Iron overload B12 deficiency Insomnia Cerebellar atrophy Cerebral microvascular disease Peripheral neuropathy History of mammogram (~11/06/23) Obesity (BMI 30-39.9) Anxiety Osteopenia Type 2 diabetes mellitus with hemoglobin A1c goal of less than 7.0% Nocturnal hypoxia LOLY (obstructive sleep apnea) (HFpEF) heart failure with preserved ejection fraction CKD (chronic kidney disease) Pulmonary hypertension Atrial fibrillation Persistent atrial fibrillation CAD (coronary artery disease) Vitamin D deficiency HLD (hyperlipidemia) T2DM (type 2 diabetes mellitus) Acute exacerbation of congestive heart failure Hypertension Parkinson disease Hypothyroid Diabetes Surgical History Hx of cardiac cath (~01/2017) Hx of carpal tunnel repair Hx of knee surgery Hx of hysterectomy Family History Father No problems noted. Mother T2DM (type 2 diabetes mellitus) Brother T2DM (type 2 diabetes mellitus) Social History Household Members: None Housing: Apartment Alcohol intake: current Alcohol intake frequency: holidays/special occasions only Alcohol type: wine Patient Tobacco Use Status: Former Tobacco user Second Hand Smoke Exposure: No Advance Directives Date on File: 03/22/20 service: No Current occupational status: retired Cognitive needs: No Hearing needs: No Vision needs: Yes (rx glasses) Review of Systems Const Details: - Musculoskeletal: Reports lower back pain radiating to both legs, increased pain on standing on toes - Endocrine: Reports uncontrolled blood sugar levels, A1C=9.7 - Neurological: Reports peripheral neuropathy - Dermatological: Reports toe ulcer due to footwear All systems reviewed & are unremarkable except as noted in HPI and below Physical Exam Vital Signs: Last Vital Signs Pulse 90 02/24/25 13:10 BP 121/74 02/24/25 13:10 Pulse Ox 99 02/24/25 13:10 Oxygen Delivery Method Room Air 02/24/25 13:10 BMI result Body Mass Index 30.9 General: Appears afebrile. Alert and oriented. Mood and affect appropriate. Follows and participates in conversation appropriately. Respiratory effort is unlabored. No cough. Able to transition from sit to stand unassisted. Ambulates with bilaterally normal heel strike and toe off, increased back pain with toe standing. General: Yes no CVA tenderness Back/Spine/Pelvis Other: Limited lumbar ROM due to pain. Lumbar extension and flexion reproduces. Demonstrates 5/5 strength of quadriceps bilaterally as well as flexion/dorsiflexion of bilateral feet against resistance. 2+ pedal pulses bilaterally. Straight leg rise with dorsiflexion positive on the right. +1 patellar and achilles reflexes bilaterally. Facet loading test positive bilaterally. Brad?s, Pelvic compression and Stinchfield tests are negative bilaterally. No groin pain with I/E hip rotations. Valsalva maneuver negative. Back: no CVA tenderness Cervical Spine: cervical ROM normal and No Cervical spine tenderness Thoracic/Lumbar Spine: thoracic and lumbar spine normal to inspection, No Thoracic/lumbar spine scar(s), Lasegue's sign positive on the right and localized, pain with thoraco-lumbar ROM, paraspinal muscle tenderness, thoraco- lumbar ROM limited, Thoracic/lumbar scoliosis, No thoracic spinal tenderness and lumbar spinal tenderness (L4-S1) Pelvis: buttock tenderness on the right Sacroiliac joints: bilaterally nontender Results Reviewed Results Reviewed: XR lumbar spine 2-3V 03/16/24 CLINICAL INFORMATION: fall COMPARISON: Lumbar spine radiographs 09/30/2021 TECHNIQUE: 3 views of the lumbar spine FINDINGS: 5 nonrib-bearing lumbar-type vertebral bodies. Vertebral body heights are maintained. Leftward scoliosis of the lumbar spine. Minimal degenerative change and small anterior disc osteophyte complexes. Disc space heights are maintained. Atherosclerotic calcifications of the abdominal aorta. IMPRESSION: Mild spondylosis of the lumbar spine, as above detailed. XR HIP, RIGHT 03/16/24 CLINICAL INFORMATION: fall COMPARISON: None available. TECHNIQUE: Two views of the right hip. FINDINGS: No fracture. Alignment is anatomic. Soft tissues are unremarkable. Mild to moderate degenerative changes of the right hip joint. IMPRESSION: No acute fracture or dislocation. Mild to moderate degenerative changes of the right hip joint. Assessment & Plan Assessment & Plan (1) Lumbar degenerative disc disease: Code(s): M51.36 - Other intervertebral disc degeneration, lumbar region Category: Medical (2) Lumbosacral spondylosis: Code(s): M47.817 - Spondylosis without myelopathy or radiculopathy, lumbosacral region Category: Medical (3) Lumbar radiculopathy: Code(s): M54.16 - Radiculopathy, lumbar region Category: Medical (4) Peripheral neuropathy: Code(s): G62.9 - Polyneuropathy, unspecified Category: Medical Plan The plan includes obtaining a lumbar spine MRI to further evaluate the cause of the lower back pain and radiculopathy. Due to the patient's uncontrolled diabetes, therapeutic injections or neuromodulation are not currently an option, and the focus will be on managing the arthritic lower back pain. The patient is advised to work on controlling her blood sugar levels to potentially allow for future interventions such as injections or surgical consultations. The patient is also advised to continue Wound care for her toe ulcer. She attends regular follow up with Wound care clinic. All questions and concerns have been answered and patient agreed with the devi tment plan. Follow up for MRI results and sooner as needed. Patient was informed and verbally consented to the use of an ambient scribe for clinic note documentation during this visit. Orders: Orders MR lumbar spine wo con 02/24/25 M47.817 - Spondylosis without myelopathy or radiculopathy, lumbosacral region, M51.36 - Other intervertebral disc degeneration, lumbar region, M54.16 - Radiculopathy, lumbar region Coding Level of Care Code New Pt Level 4 (53490) Diagnoses Lumbar degenerative disc disease M51.36 Lumbosacral spondylosis M47.817 Lumbar radiculopathy M54.16 Peripheral neuropathy G62.9
[2025-02-24 13:10] VITALS: BP 121/74; PULSE 90; O2SAT 99; BMI 30.9
== END 2025-02-24 14:11 | disposition home or self-care (01) ==
LOC: HO.PMC 13:06
PROVIDERS: PCP Internal Medicine; Referring Provider Physician Assistant Medical; Visit Provider Nurse Practitioner Family
DX: M51.369 Other intervertebral disc degeneration, lumbar region without mention of lumbar back pain or lower extremity pain (principal); M47.817 Spondylosis without myelopathy or radiculopathy, lumbosacral region; M54.16 Radiculopathy, lumbar region; G62.9 Polyneuropathy, unspecified
CPT/HCPCS: 99204

== ENCOUNTER → 2025-02-24 13:05 | Outpatient (BNVA) | payer MEDICARE, SELFPAY | PROVIDERS: PCP Internal Medicine; Referring Provider Physician Assistant Medical; Visit Provider Nurse Practitioner Family | DX: M54.50 Low back pain, unspecified (principal); M79.605 Pain in left leg; M79.604 Pain in right leg; M47.817 Spondylosis without myelopathy or radiculopathy, lumbosacral region; M54.16 Radiculopathy, lumbar region; E11.65 Type 2 diabetes mellitus with hyperglycemia; E11.42 Type 2 diabetes mellitus with diabetic polyneuropathy; Z87.891 Personal history of nicotine dependence; Z79.4 Long term (current) use of insulin | CPT/HCPCS: 99202 ==

== ENCOUNTER → 2025-03-23 16:04 | Outpatient (BNV) | payer MEDICARE, SELFPAY | PROVIDERS: PCP Internal Medicine; Visit Provider Radiology Diagnostic Radiology | DX: S32.010A Wedge compression fracture of first lumbar vertebra, initial encounter for closed fracture (principal); M51.369 Other intervertebral disc degeneration, lumbar region without mention of lumbar back pain or lower extremity pain; M48.061 Spinal stenosis, lumbar region without neurogenic claudication; M99.63 Osseous and subluxation stenosis of intervertebral foramina of lumbar region | CPT/HCPCS: 72148 ==

== ENCOUNTER 2025-03-23 16:16 | Outpatient (REF) | payer MEDICARE, SELFPAY ==
--- OUTSIDE RECORDS SUMMARY | 2023-12-28 06:15 | XMS_ITS ---
Author Organization [facility] Address [address] [place] [address] Care Team Providers Care Director Process Engineering Name Role Phone David Mccarty Primary Care Provider Lianna Jacobo [phone] Encounters Encounter Location Date Provider Diagnosis [address] [address] 12/28/2023 Lianna Jacobo Plan Of Treatment Next Appt Details Provider Name:Lianna Jacobo , 07/17/2025 01:00:00 PM, [address] [place], [address], Progress Notes * Bianca HUNT ADOB:[birth year] (80 yo F)Acc No.[id number]:12/28/2023 Progress Note Patient: Bianca LIM Provider: Steve Jacobo DPM :1945 A ge:78 Y S ex:Female Date:12/28/2023 [facility] [facility] [place] [place] Pcp:David Mccarty Subjective: * Chief Complaints: * [...] 12/28/2023 Generated for Josefina neri/Amanda/Reshma on: 1 05/24/2024 11:19 PM EST
--- OUTSIDE RECORDS SUMMARY | 2024-03-21 09:45 | XMS_ITS ---
Author Organization [facility] Address [address] [place] [address] Care Team Providers Care Vinyl Flooring Installer Name Role Phone David Mccarty Primary Care Provider [phone] Lianna Jacobo [phone] Encounters Encounter Location Date Provider Diagnosis [address] [address] 03/21/2024 Lianna Jacobo Plan Of Treatment Next Appt Details Provider Name:Lianna Jacobo , 07/17/2025 01:00:00 PM, [address] [place], [address], Progress Notes * Bianca HUNT ADOB:[birth year] (80 yo F)Acc No.[id number]:03/21/2024 Progress Note Patient: Bianca LIM Provider: Steve Jacobo DPM :1945 A ge:79 Y S ex:Female Date:03/21/2024 [facility] [facility] [place] [place] Pcp:David Mccarty Subjective: * Chief Complaints: * [...] 05/22/2023 Generated for Josefina neri/Amanda/Reshma on: 1 05/24/2024 11:19 PM EST
--- OUTSIDE RECORDS SUMMARY | 2025-03-20 06:15 | XMS_ITS ---
Author Organization [facility] Address [address] [place] [address] Care Team Providers Care Spa Director Name Role Phone David Mccarty Primary Care Provider BlackAndiLianna Unavailable [phone] Allergies Allergen (clinical drug ingredient) Drug/Non Drug Allergy documented on EMR Reaction Allergy Type Onset Date Status acetaminophen / oxycodone Percocet Unknown Drug Allergy Active oxycodone oxyCODONE Unknown Drug Allergy Active REASON FOR VISIT At Risk Footcare, Painful Toe(s) Medications Medication SIG (Take, Route, Frequency, Duration) Notes Start Date End Date Status Soma Not-Taking Not-Taking Levemir Not-Taking Imitrex Not-Taking Estradiol 0.625 MG 1 tablet Orally Reyna y for Three Weeks, 1 Week off; Duration: 30 day(s) Not-Taking Urea 20 % 1 application to affected area as needed Externally Twice a day; Duration: 30 days 05/24/2013 Not-Taking Zocor Not-Taking Toujeo SoloStar Not- Taking Carbidopa-Levodopa N ot-Taking Fioricet 50-325-40 MG 1 tablet as needed Orally every 4 hrs Not-Taking metFORMIN HCl Not-Ta Vicodin occ Not-Taking zzzCompression Stockings 20-30mm Hg . . .; Duration: . Not-Marga g Meclizine HCl Not-Ta Glimepiride 2 MG 1 tablet with breakf ast or the first main meal of the day Orally Once a day; Duration: 30 day(s) Not-Taking Aspirin Not-Taking Extra-Depth Diabetic Shoes with 3 Pair Custom heat-molded multi-density innersoles . for 1 year . Dx: 250.61,735.4,701; Duration: . Not-Taking Xanax Not-Taking John Contour Next Test Not-Taking zzzExtra Depth Orthopedic Shoes (1 Pair) with Customized Heat Molded Multidensity Innersoles (3 Pair) . . . Dx: IDDM/Polyneuropathy (E10.42), Hammertoe Foot Deformity (M20.41,M20.42), Preulcerative Skin Lesion(s) (L85.1); Duration: . 08/15/2015 Not-Taking Simvastatin Not-Taki ng Jardiance Not-Taking Victoza Not-Taking Amlodipine & Diet Manage Prod Not-Taking Extra Depth Orthopedic Shoes (1 Pair) with Customized Heat Molded Multidensity Innersoles (3 Pair) as directed Dx: NIDDM/Polyneuropathy (E11.42), Hammertoe Foot Deformity (M20.41,M20.42), Preulcerative Skin Lesion(s) (L85.1 06/16/2022 Not-Taking Ciclopirox Olamine 0.77 % 1 application Externally Twice a day; Duration: 30 days Active Night Splint AFO - L1930 1 wear at rest; Duration: 30 days Active Atorvastatin Calcium 40 MG Oral; Duration: 90 Days Acti ve Ammonium Lactate 12 % 1 application Externally to affected areas of dry skin to feet except for between the toes Twice a day; Duration: 30 days Active Extra Depth Orthopedic Shoes (1 Pair) with Customized Heat Molded Multidensity Innersoles (3 Pair) as directed Dx: NIDDM/Polyneuropathy (E11.42), Hammertoe Foot Deformity (M20.41,M20.42), Preulcerative Skin Lesion(s) (L85.1 07/18/2024 Active Metoprolol & Diet Manage Prod Active Tresiba 100 UNIT/ML as directed Subcutaneous Active Iron 325 (65 Fe) MG 1 tablet Orally Once a day; Duration: 30 day(s) Active Furosemide Active Losartan Potassium A ctive Levothyroxine Sodium Active PARoxetine HCl Activ e Easy Touch Pen [place] Active ALPRAZolam Active Cyanocobalamin Activ e B12 Active HYDROcodone-Acetaminophen Not-Taking Extra Depth Orthopedic Shoes (1 Pair) with Customized Heat Molded Multidensity Innersoles (3 Pair) Dx: NIDDM/Polyneuropathy (E11.42), Hammertoe Foot Deformity (M20.41,M20.42), Preulcerative Skin Lesion(s) (L85.1); Duration: 365 days 03/20/2025 Active Eliquis Active Vitamin D3 Active HumaLOG Not-Taking Tresiba FlexTouch No t-Taking Social History Tobacco Use: Social History Observation [...] Problem Acquired hammer toe of right foot (2008616175555898) Other hammer toe(s) (acquired), right foot (M20.41) Active confirmed Problem Localized, primary osteoarthritis of the ankle and/or foot (134272403) Arthritis of joint of lesser toe, right (M19.071) Active confirmed Problem Acquired hammer toe of left foot (4620794332746207) Hammer toe of left foot (M20.42) Active confirmed Problem Ulcer of toe of right foot (disorder) (74892781433306116 ) Skin ulcer of toe of right foot, limited to breakdown of skin (L97.511) Active confirmed Vital Signs Height 5 ft 2 in in 03/20/2025 Weight 165 lbs 03/20/2025 BMI 30.18 kg/m2 03/20/2025 Blood pressure systolic 126 mm Hg 03/20/20 25 Blood pressure diastolic 65 mm Hg 025 Procedures Procedure Date Ordered Date Performed Result Body Sit e 90685-ZTQX SKIN LESIONS, OVER 4 03/20/2025 N/A [id number] NAIL(S) 03/20/2025 N/A Encounters Encounter Location Date Provider Diagnosis [facility] [address] [place] [address] 03/20/2025 Lianna Black Type 2 diabetes nilo itus with diabetic polyneuropathy E11.42 ; Pain in right toe(s) M79.674 ; Other hammer toe(s) (acquired), right foot M20.41 ; Arthritis of joint of lesser toe, right M19.071 ; Subluxation of metatarsophalangeal joint of toe, initial encounter S93.149A ; Hammer toe of left foot M20.42 and Skin ulcer of toe of right foot, limited to breakdown of skin L97.511 Assessments Encounter Date Diagnosis (ICD Code) Assessment Notes Treatment Notes Treatment Clinical Notes Section Notes 03/20/2025 Type 2 diabetes mellitus with diabetic polyneuropathy (ICD-10 - E11.42) Patient Educated with: DIABETIC FOOT CARE INSTRUCTIONS. pdf (DIABETIC FOOT CARE INSTRUCTIONS. pdf) 03/20/2025 Pain in right toe(s) (ICD-10 - M79.674) 03/20/2025 Other hammer toe(s) (acquired), right foot (ICD-10 - M20.41) 03/20/2025 Arthritis of joint o f lesser toe, right (ICD-10 - M19.071) 03/20/2025 Subluxation of metatarsophalangeal joint of toe, initial encounter (ICD-10 - S93.149A) 03/20/2025 Hammer toe of left f oot (ICD-10 - M20.42) 03/20/2025 Skin ulcer of toe of right foot, limited to breakdown of skin (ICD-10 - L97.511) Plan Of Treatment Medication Medication Name Sig Start Date Stop Date Notes Extra Depth Orthopedic Shoes (1 Pair) with Customized Heat Molded Multidensity Innersoles (3 Pair) Dx: NIDDM/Polyneuropathy (E11.42), Hammertoe Foot Deformity (M20.41,M20.42), Preulcerative Skin Lesion(s) (L85.1); Duration: 365 days 03/20/2025 Treatment Notes Assessment Notes Type 2 diabetes mellitus wit h diabetic polyneuropathy Patient Educated with: DIABETIC FOOT CARE INSTRUCTIONS.pdf (DIABETIC FOOT CARE INSTRUCTIONS.pdf) Pending Test Test Name Order Date [id number] SKIN LESIONS, OVER 4 03/20/20 [id number] NAIL(S) 03/20/2025 Next Appt Details Follow Up: 2 Months, Reason: Provider Name:Lianna A Donnell , 07/17/2025 01:00:00 PM, [address] [place] [address], [phone], Procedure Notes * Category Sub-Category Detail Notes Keratoma Treatment Parring or Cutting o f Benign Hyperkeratotic Lesion(s) (-57) More than 4 Lesions - Due to the at risk nature of the patients medical condition as documented in the exam findings, performance of this keratoderma treatment is medically necessary as its management by an unskilled/untrained nonprofessional would put this patients foot and overall health at risk. Therefore, the benign hyperkeratotic lesions, ( 6) in total, locations as stated and described in the exam ( IPJ, TA, T5, SUB MTH (s), 1, B/L , Plantar Heel(s), B/L ), were pared, and/or cut utilizing a sterile 15 blade, tissue nippers, and/or power dremel instrumentation by the physician of record - 72870 Nail Reduction Nail Reduction (-19) Trimming o f all non-dystrophic nails - Due to the at risk nature of the patients medical condition as documented in the exam findings, performance of this nail treatment is medically necessary as its management by an unskilled/untrained nonprofessional would put this patients foot and overall health at risk. Therefore, the non-dystrophic nails, in locations as stated and described in the exam ( T1, T2, T3, T4, T6, T7, T8, T9, ), were debrided by the physician of record to reduce/remove overall nail length and girth, by manual and electrical means with use of a nail nipper and/or dremel, to more viable healthy nail plate or bed tissue - 21510 Progress Notes * Bianca HUNT ADOB:[birth year] (80 yo F)Acc No.[id number]:03/20/2025 Progress Note Patient: Contreras Bianca LESLIE Provider: Steve Jacobo DPM :1945 A ge:80 Y S ex:Female Date:03/20/2025 Address:[facility] [place], [place] Pcp:David Mccarty Subjective: * Chief Complaints: * A t Risk FootcarePainful Toe(s) * HPI: A t Risk footcare: Pt States Last PCP Visit: D ate 0 11/11/2024 T oe pain: Nature: t enderness. Location: 3 rd toe, Right foot. Duration: , several months. Course: i mproved but unresolved. Aggravated by: a ny pressure, shoes. Treatments: r est/alter normal daily activity, change in shoes- [facility]. * ROS: G eneral/Constitutional: Nausea d enies. V omiting d enies. H zully Thirst d enies. L oss appetite d enies, denies. C hills d enies, denies. F atigue d enies. F ever d enies, denies. N ight Sweats d enies. U nexplained weight loss d enies. U nexplained weight gain d enies. O phthalmologic: Blurred vision d enies. R ed eye d enies. ? H EENTM: Dentures d enies. D izziness d enies. G lasses/contacts a dmits. R etinopathy d enies. B lurred/double vision d enies. T MJ?denies. D ischarge/drainage d enies. I mplants d enies. S ore throat d enies. D ental implants d enies. H rebeka of hearing d enies. D ifficulty chewing/swallowing/speaking d enies. N ose bleeds d enies. S ore mouth d enies, denies.?Swollen glands d enies. R espiratory: On Oxygen d enies. P neumonia/pleurisy d enies.?Bronchitis d enies. E mphysema d enies. C oughing d enies, denies. C ough blood d enies. S hortness of breath d enies, denies. W heezing d enies, denies.? C ardiovascular: Pacemaker d enies. M KNOT CUTTER d enies. W PW d enies. C HF d enies. H eart attack d enies. S eptal defect d enies. R apid beat d enies. C hest pain d enies, denies. A trial Fib. d enies, denies. M urmur/Palpitations d enies. G astrointestinal: Hemorrhoids d enies. S tomach/Abdominal pain d enies, denies. D ark blood stool d enies. I rritable bowel d enies. C onstipation?denies. D iarrhea d enies, denies. V omiting d enies. H ematology: Swelling a dmits. C lots d enies. V aricose Veins d enies. B ruising d enies. B leeding problem d enies. G enitourinary: Blood urine d enies, denies. F requent/Painfu/urination/bladder control d enies, denies. K idney stones d enies. I nfection (UTI) d enies. N ephropathy d enies. s ex trans dis (STD) d enies. P rostate d enies.? M usculoskeletal: Hammertoes d enies. B unions a dmits. B ack Pain d enies. M uscle Cramps/ Resting d enies. M uscle cramps / walking d enies.?Generalized aches and pains a dmits. P ainful joints d enies. S wollen joints?denies. W eakness d enies. P odiatric: Comments S [facility] for comments. I nteg.: [place] d enies. S cars d enies. C orns/calluses?, admits. I ngrown nails d enies. P ainful nails d enies. O pen Sores d enies. I tching d enies. R ashes d enies, denies. N eurologic: Difficulty sleeping d enies. B rain disorder d enies. N umbness d enies. B alance trouble d enies. C onfusion d enies, denies.?Fainting/blackouts d enies. H eadache d enies. T ingling d enies. T remors d enies. * Medical History: * Surgical History: c arpal tunnel surgery cataract surgery 2007knee surgery skin cancer removed 2013, 2014 * Hospitalization/Major Diagno stic Procedure[facility]- [place]icarditis/ [place]ral [place] [place] Ab[place] Pain-Infection - antibiotic - Water around heart and lungs 10[place]20[place] [place] coughing, sick 03/2024 * Family History: M other: , diabetes, diagnosed with Diabetic - NIDDM, Unspecified cerebral artery occlusion with cerebral infarction. F ather: . P aternal Grand Mother: diabetes. M aternal uncle: heart condition. S iblings: diabetes, heart attack. S pouse: . * Social History: T obacco Use: T obacco use other than smoking A re you an other tobacco user? N o Tobacco Control (Standard) T obacco use: N onsmoker A dditional Findings: Tobacco non-user C urrent nonsmoker D rugs/Alcohol: D rugs H ave you used drugs other than those for medical reasons in the past 12 months? N o M iscellaneous: C affeine: no, decafe tea. Children: yes, 2. Exercise: no. Marital status: . 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 D rug/Alcohol: A ASUNCION-C (Standard) D id you have a drink containing alcohol in the past year? Y es H ow often did you have a drink containing alcohol in the past year? M onthly or less (1 point) H ow many drinks did you have on a typical day when you were drinking in the past year? 1 or 2 drinks (0 point) H ow often did you have six or more drinks on one occasion in the past year? N ever (0 point) P oints 1 I nterpretation N egative * Medications: T akingVitamin D3 B12 Eliquis Levothyroxine Sodium PARoxetine HCl ALPRAZolam Cyanocobalamin Easy Touch Pen [place] Metoprolol & Diet Manage Prod Furosemide Losartan Potassium Tresiba 100 UNIT/ML Solution as directed Subcutaneous Iron 325 (65 Fe) MG Tablet 1 tablet Orally Once a day Atorvastatin Calcium 40 MG Tablet Oral Ciclopirox Olamine 0.77 % Cream 1 application Externally Twice a day Night Splint AFO - L1930 1 wear at rest Ammonium Lactate 12 % Cream 1 application Externally to affected areas of dry skin to feet except for between the toes Twice a day Extra Depth Orthopedic Shoes (1 Pair) with Customized Heat Molded Multidensity Innersoles (3 Pair) as directed Dx: NIDDM/Polyneuropathy (E11.42), Hammertoe Foot Deformity (M20.41,M20.42), Preulcerative Skin Lesion(s) (L85.1 Taking Vitamin D3 Taking B12 Taking Eliquis Taking Levothyroxine Sodium Taking PARoxetine HCl Taking ALPRAZolam Taking Cyanocobalamin Taking Easy Touch Pen [place] Taking Metoprolol & Diet Manage Prod Taking Furosemide Taking Losartan Potassium Taking Tresiba 100 UNIT/ML Solution as directed Subcutaneous Taking Iron 325 (65 Fe) MG Tablet 1 tablet Orally Once a day Taking Atorvastatin Calcium 40 MG Tablet Oral Taking Ciclopirox Olamine 0.77 % Cream 1 application Externally Twice a day Taking Night Splint AFO - L1930 1 wear at rest Taking Ammonium Lactate 12 % Cream 1 application Externally to affected areas of dry skin to feet except for between the toes Twice a day Taking Extra Depth Orthopedic Shoes (1 Pair) with Customized Heat Molded Multidensity Innersoles (3 Pair) as directed Dx: NIDDM/Polyneuropathy (E11.42), Hammertoe Foot Deformity (M20.41,M20.42), Preulcerative Skin Lesion(s) (L85.1 Not-Taking/PRNSimvastatin Jardiance Amlodipine & Diet Manage Prod Extra Depth Orthopedic Shoes (1 Pair) with Customized Heat Molded Multidensity Innersoles (3 Pair) as directed Dx: NIDDM/Polyneuropathy (E11.42), Hammertoe Foot Deformity (M20.41,M20.42), Preulcerative Skin Lesion(s) (L85.1 Victoza Xanax John Contour Next Test Aspirin Extra-Depth Diabetic Shoes with 3 Pair Custom heat-molded multi-density innersoles . . for 1 year . Dx: 250.61,735.4,701 zzzExtra Depth Orthopedic Shoes (1 Pair) with Customized Heat Molded Multidensity Innersoles (3 Pair) . . . . Dx: IDDM/Polyneuropathy (E10.42), Hammertoe Foot Deformity (M20.41,M20.42), Preulcerative Skin Lesion(s) (L85.1) zzzCompression Stockings 20-30mm Hg 1 pair closed toe- knee high . . . metFORMIN HCl Vicodin occ Meclizine HCl Glimepiride 2 MG Tablet 1 tablet with breakfast or the first main meal of the day Orally Once a day Fioricet 50-325-40 MG Tablet 1 tablet as needed Orally every 4 hrs Toumaikel SoloStar Carbidopa-Levodopa Urea 20 % Cream 1 application to affected area as needed Externally Twice a day Zocor Levemir Imitrex Soma Estradiol 0.625 MG Tablet 1 tablet Orally Daily for Three Weeks, 1 Week off HumaLOG Tresiba FlexTouch HYDROcodone-Acetaminophen Medication List reviewed and reconciled with the patientNot-Taking/PRN Simvastatin Not-Taking/PRN Jardiance Not-Taking/PRN Amlodipine & Diet Manage Prod Not-Taking/PRN Extra Depth Orthopedic Shoes (1 Pair) with Customized Heat Molded Multidensity Innersoles (3 Pair) as directed Dx: NIDDM/Polyneuropathy (E11.42), Hammertoe Foot Deformity (M20.41,M20.42), Preulcerative Skin Lesion(s) (L85.1 Not-Taking/PRN Victoza Not-Taking/PRN Xanax Not-Taking/PRN John Contour Next Test Not-Taking/PRN Aspirin Not-Taking/PRN Extra-Depth Diabetic Shoes with 3 Pair Custom heat-molded multi-density innersoles . . for 1 year . Dx: 250.61,735.4,701 Not-Taking/PRN zzzExtra Depth Orthopedic Shoes (1 Pair) with Customized Heat Molded Multidensity Innersoles (3 Pair) . . . . Dx: IDDM/Polyneuropathy (E10.42), Hammertoe Foot Deformity (M20.41,M20.42), Preulcerative Skin Lesion(s) (L85.1) Not-Taking/PRN zzzCompression Stockings 20-30mm Hg 1 pair closed toe- knee high . . . Not-Taking/PRN metFORMIN HCl Not-Taking/PRN Vicodin occ Not-Taking/PRN Meclizine HCl Not-Taking/PRN Glimepiride 2 MG Tablet 1 tablet with breakfast or the first main meal of the day Orally Once a day Not-Taking/PRN Fioricet 50-325-40 MG Tablet 1 tablet as needed Orally every 4 hrs Not-Taking/PRN Toujeo SoloStar Not-Taking/PRN Carbidopa-Levodopa Not-Taking/PRN Urea 20 % Cream 1 application to affected area as needed Externally Twice a day Not-Taking/PRN Zocor Not-Taking/PRN Levemir Not-Taking/PRN Imitrex Not-Taking/PRN Soma Not-Taking/PRN Not-Taking/PRN Estradiol 0.625 MG Tablet 1 tablet Orally Daily for Three Weeks, 1 Week off Not-Taking/PRN HumaLOG Not-Taking/PRN Tresiba FlexTouch Not-Taking/PRN HYDROcodone-Acetaminophen Medication List reviewed and reconciled with the patient * Allergies: P ercocetoxyCODONE: Allergyyes[Allergies Verified] Objective: * Vitals: H t: 5 ft 2 in, Wt: 165, BMI: 30.18, Shoe size: 8, BP: 126/65 mm Hg, BS: 115, Wt- k.84 kg. * P ast Orders: L ab:HEMOGLOBIN A1C (GLYCOHEMOGLOBIN) (Order Date - 10/11/2024) (Collection Date & Time - 11/17/2024 11:33 AM) Value Reference Range HEMOGLOBIN A1C % (HH) 10 * Examination: O phthalmology Referral: DIABETES EYE EXAM P rocedure Performed: N o E ye Exam not performed: N o reason specified R etinal Screening Performed: N o F indings of Diabetic Eye Exam: n o retinopathy G eneral Examination: GENERAL APPEARANCE: R eveals a pleasant, alert, well nourished, well-developed, well hydrated individual, who demonstrates proper attention to hygiene/body habitus, and is in no acute distress, Pt serves as own historian for office visit today. ORIENTED: p erson, place, and time. N eurological: SENSORY: Neurological exam demonstrates inability for patient to distinguish sharp/dull pin prick discrimination, reduced, light touch sensation, reduced, vibration sensation,reduced, proprioception identification, in a stocking fashion, B/L. Test with 5.07 [place]-Kathia monofilament performed at plantar aspects of 5 varied sites per foot shows sensation absent in at least 2 locations, B/L, Pt relates, anesthesia , tingling, burning, anesthesia.? TINEL'S COMPRESSION: N egative tarsal tunnel, isacc pedis, and medial calcaneal nerves. V ascular: DP PULSES (B): 1 /4, B/L. PT PULSES (B): 1 /4, B/L. CAPILLARY FILL TIME: 3 secs. per digit, B/L. ? D ermatologic: SKIN FINDINGS: Skin exam reveals Keratotic lesion(s) located at,IPJ, TA, T5, SUB MTH (s), 1, B/L , Plantar Heel(s), B/L. ULCER: D orsal, T7, LOCATION, SIZE, 3 mm X 3mm X 2mm, BASE, granular, RIM, hyperkeratotic, UNDERMINING, absent, TRACKING, Full thickness breakdown of skin, DRAINAGE, serosanguineous, mild, NECROTIC TISSUE, loosely-adherent, yellow slough, MALODOR, absent, CALOR, absent, ERYTHEMA, absent, PAIN ON PALPATION, present. N ails: NAILS are: E longated, overgrown, nondystrophic, T1, T2, T3, T4, T6, T7, T8, T9. O rthopedic: DIGITAL DEFORMITIES: , Digital contracture, PIPJ, 2-5 B/L, incompl-reducible with WB, or to push-up test, no over, nor underlapping, Reveals pain/swelling/redness/enlargement of PIPJ T7, with evidence of shoe producing skin irritation. FOOTWEAR EVALUATION: s hoe gear properties exacerbate patients complaints in relation to their foot/toe deformity. Assessment: * Assessment: 1. P ain in right toe(s) - M79.674 2 . T ype 2 diabetes mellitus with diabetic polyneuropathy - E11.42 (Primary) 3 . O ther hammer toe(s) (acquired), right foot - M20.41 S pecify :Chronic problem, Worse (4) 4 . A rthritis of joint of lesser toe, right - M19.071 5 .?Subluxation of metatarsophalangeal joint of toe, initial encounter - S93.149A 6 .?Hammer toe of left foot - M20.42 7 . S kin ulcer of toe of right foot, limited to breakdown of skin - L97.511 Plan: * Treatment: 2. O ther hammer toe(s) (acquired), right foot Start Extra Depth Orthopedic Shoes (1 Pair) with Customized Heat Molded Multidensity Innersoles (3 Pair), Dx: NIDDM/Polyneuropathy (E11.42), Hammertoe Foot Deformity (M20.41,M20.42), Preulcerative Skin Lesion(s) (L85.1), 365 days, 1, Refills 0. * Procedures: K eratoma Treatment: Parring or Cutting of Benign Hyperkeratotic Lesion(s) ( -57) More than 4 Lesions - Due to the at risk nature of the patients medical condition as documented in the exam findings, performance of this keratoderma treatment is medically necessary as its management by an unskilled/untrained nonprofessional would put this patients foot and overall health at risk. Therefore, the benign hyperkeratotic lesions, ( 6) in total, locations as stated and described in the exam ( IPJ, TA, T5, SUB MTH (s), 1, B/L , Plantar Heel(s), B/L ), were pared, and/or cut utilizing a sterile 15 blade, tissue nippers, and/or power dremel instrumentation by the physician of record - 12841. N ail Reduction: Nail Reduction ( -19) Trimming of all non-dystrophic nails - Due to the at risk nature of the patients medical condition as documented in the exam findings, performance of this nail treatment is medically necessary as its management by an unskilled/untrained nonprofessional would put this patients foot and overall health at risk. Therefore, the non-dystrophic nails, in locations as stated and described in the exam ( T1, T2, T3, T4, T6, T7, T8, T9, ), were debrided by the physician of record to reduce/remove overall nail length and girth, by manual and electrical means with use of a nail nipper and/or dremel, to more viable healthy nail plate or bed tissue - 09361. * Procedure Codes: 1 1057 TRIM SKIN LESIONS, OVER 4, Modifiers: XS 54016 X-RAY EXAM OF RIGHT FOOT 3V, Modifiers: 26 , [id number] TRIM NAIL(S), Modifiers: XS * Preventive Medicine: Counseling: D iscussion: - 14: Office or other outpatient visit for the evaluation and management of an established patient, which required a medically appropriate history and/or examination and MODERATE level of DECISION MAKING for: 1 OR MORE CHRONIC PROBLEM(S) THATS WORSENING, 2 STABLE CHRONIC PROBLEMS, A NEWLY DIAGNOSED PROBLEM WITH UNCERTAIN PROGNOSIS, AN ACUTE COMPLICATED INJURY WITH MULTIPLE TREATMENT OPTIONS, OR AN ACUTE PROBLEM WITH ACCOMPANYING SYSTEMIC SYMPTOMS, THAT POSE(S) A MODERATE RISK OF MORBIDITY. THIS CONDITION MAY ALSO INCLUDE RX DRUG MANAGEMENT, OR A DECISON FOR MINOR SURGERY. The visit on the day of the encounter encompassed interpreting the data and educating the patient as to the nature of their condition, treatment options available according to their individual PMH, meds, allergies, and overall health/living conditions, as well as any potential risks or complications that may occur from a failure to adhere to, and participate in, the recommended course of therapy. The discussion included a complete verbal, and/or written explanation of the examination results, any x-rays taken, the proposed diagnosis, and outline of the treatment plan. A schedule for future care needs was also explained. The patient verbalized an understanding of the instructions at this time and agreed to be an active participant in their treatment. If the patient should think of any questions or concerns after the visit, I have encouraged the patient to call the office. B ioMech.: I discussed the Pts foot biomechanics with them and how it relates to their problem. D igital Surgery: I discussed surgery for a hammertoe by digital arthroplasty, We elected to try conservative treatment at the present time. D igital Treatment: H T- I explained to the patient the possible etiologies of Hammertoes, including genetics/foot type/shoegear/activity level/exercise routine and the risks/benefits of all the different treatment options for their pain including: No treatment at all, Rest, Ice, New/supportive/wider/deeper Shoe gear, Digital Padding/Strapping/Taping/Bracing/Gel protective sleeves, Foot/Ankle AFO Bracing, Stretching exercises, Deep Tissue Massage, Arch support/shoe inserts with splay metatarsal padding, and Custom orthoses. I insisted that any digital devices be removed daily and not worn overnight for safety. The patient is to carefully examine the toes daily for any skin irritation while using any splinting or padding device. The advantages and disadvantages of each option were discussed and the patients questions re: shoe gear, padding, custom vs prefabricated inserts, activity level, and consistency in home treatment regimens for optimal success were answered to their verbally confirmed satisfaction, Recomm, rest, ice, proper shoegear, padding, orthotics, anti-inflammatories or tylenol as tolerated, topical analgesics, cortisone injections. S hoe Gear Counseling: S HOE Rx - The patient was counseled in great detail on their muscoloskeletal foot and toe deformities which coincided with the dermatological presentations visualized on exam. We discussed how their deformities put the integrity of their feet at risk for potential pedal complications which makes the accomidative diabetic shoes and cutomizable inserts medically necessary. We discussed the different shoe and insert treatment types and options, as well as the important advantages for adhering to regularly wearing these accomidative devices daily. The patient was made aware of the fact that a failure to abide by these recommedations may be deleterious to their foot health as they are able to prevent many pedal complications such as skin irritation, skin ulceration, infection, and even loss of toe/foot/leg/or life. Time was also spent with the patient dispensing and discussing proper diabetic footcare techniques including daily skin moisturization, daily foot inspection for any interruption in skin integrity including open lesions, or sign of infection such as redness/malodor/drainage/swelling. Also discussed and recommended were procedures regarding daily shoe inspection for the presence of internal foreign bodies as well as any visualized irregular shoe or insert wear. Patient questions re: shoes, inserts, and self foot inspections were answered to their satisfaction as the patient verbally confirmed a full understanding of the above information. A Rx for Extra Depth Orthopedic Shoes with 3 pair of custom heat-molded inserts was dispensed. U lcer: C ont. with [facility] [place], The wound was not debrided due to scheduled appointment tomorrow, PREVENTIVE STRATEGIES were reviewed with the patient to avoid recurrent ulceration. A set of verbal and written instructions regarding proper daily diabetic footcare techniques was discussed and dispensed. The patient is to pay close attention to skin hydration by maintaining proper moisturization through correct water consumption and consistent application of skin lotions/creams/ointments. They are also to perform regular visual and tactile foot inspections for any interruption in skin integrity including cracks, open lesions, and immediately report to the office any sign of infection such as redness/malodor/drainage/swelling. We discussed and recommended practices and procedures regarding regular shoe and insert evaluations for the presence of foreign bodies as well as for any irregular shoe or insert wear. We reinforced the importance for the patient to adhere to wearing their orthopedic shoes and pressure accommodative innersoles whenever walking. We stressed the significant value for the patient to remain consistent concerning their medically prescribed diet, participate in regular cmp-cfcpor-bdnuiwo exercise (seated weights, exercise bike, or swimming), and keep their scheduled at risk foot care podiatric appointments. We also reviewed the possible role for additional Rx foot/leg bracing or surgical intervention when/if medically warranted. Screening/Special Tests: F all Risk Screening: N o falls in the past year F ALLS: Screening for Future Fall Risk Have you had two or more falls in the past year? N o Have you had any falls with injury in the past year? N o * Follow Up: 2 Months * Images: * Sign off status: Completed true * Provider: Steve Jacobo DPM Date: 05/21/2024 Generated for Josefina Benavidez/Reshma on: 05/24/2024 11:18 PM EST History and Physical Notes * HPI (History of Present Illness) Category Sub-Category Detail Notes Category Not es Toe pain Nature: tenderness Location: 3rd toe, Right foot Duration: , several months Course: improved but unresol fany Aggravated by: any pressure, shoes Treatments: rest/alter normal da maximilian activity, change in shoes- [facility] Pt States Last PCP Visit: Date:: 11/12/19 25 Examination Category Sub-Category Detail Notes Category Not es Neurological SENSORY: Neurological exa m demonstrates inability for patient to distinguish sharp/dull pin prick discrimination, reduced, light touch sensation, reduced, vibration sensation,reduced, proprioception identification, in a stocking fashion, B/L. Test with 5.07 [place]-Kathia monofilament performed at plantar aspects of 5 varied sites per foot shows sensation absent in at least 2 locations, B/L, Pt relates, anesthesia , tingling, burning, anesthesia TINEL'S COMPRESSION: Negative tarsal hiram lori, isacc pedis, and medial calcaneal nerves Dermatologic SKIN FINDINGS: Skin exam reveal s Keratotic lesion(s) located at, IPJ, TA, T5, SUB MTH (s), 1, B/L , Plantar Heel(s), B/L ULCER: Dorsal, T7, LOCATION , SIZE, 3 mm X 3mm X 2mm, BASE, granular, RIM, hyperkeratotic, UNDERMINING, absent, TRACKING, Full thickness breakdown of skin, DRAINAGE, serosanguineous, mild, NECROTIC TISSUE, loosely- adherent, yellow slough, MALODOR, absent, CALOR, absent, ERYTHEMA, absent, PAIN ON PALPATION, present Orthopedic FOOTWEAR EVALUATION: shoe gear p roperties exacerbate patients complaints in relation to their foot/toe deformity DIGITAL DEFORMITIES: , Digital contractu re, PIPJ, 2-5 B/L, incompl-reducible with WB, or to push-up test, no over, nor underlapping, Reveals pain/swelling/redness/enlargement of PIPJ T7, with evidence of shoe producing skin irritation General Examination GENERAL APPEARANCE: Reveals a pleasant, alert, well nourished, well-developed, well hydrated individual, who demonstrates proper attention to hygiene/body habitus, and is in no acute distress, Pt serves as own historian for office visit today ORIENTED: person, place, and t rene Ophthalmology Referral DIABETES EYE EXAM Procedure Perform ed:: No Eye Exam not performed:: No reason speci fied Retinal Screening Performed:: No Findings of Diabetic Eye Exam:: no retin opathy Vascular DP PULSES (B): 1/4, B/L PT PULSES (B): 1/4, B/L CAPILLARY FILL TIME: 3 secs. per digit, B/L Nails NAILS are: Elongated, overg rown, nondystrophic, T1, T2, T3, T4, T6, T7, T8, T9
--- NOTE | ~2025-03-23 | MR_ITS ---
Workstation: [email or web address] EXAMINATION: MR LUMBAR SPINE WITHOUT IV CONTRAST History: M51.36 - Other intervertebral disc degeneration, lumbar region Technique: Sagittal T1, T2 and STIR, and axial T1 and T2 weighted images of the lumbar spine were obtained per departmental protocol. Comparison: Correlation is made with plain films of the lumbar spine dated 03/16/2024. Findings: There is mild levoscoliosis. There is mild anterior wedging of L1 with marrow edema involving the superior endplate. Findings are compatible with an acute compression fracture. There is slight retropulsion of the posterior cortex. The remaining vertebral bodies maintain normal height. There is slight spondylolisthesis of L4 on L5. There is mild to moderate degenerative disc disease with disc desiccation, loss of disc height, and osteophyte formation. This is most prominent at L2-3. At T12-L1,there is no evidence of disc herniation, central spinal stenosis, or neural foraminal narrowing. At L1-2, there is facet and ligamentum flavum hypertrophy causing right neural foraminal stenosis. There is no central spinal or left neural foraminal narrowing. At L2-3, there is a moderate disc bulge. There is facet osteoarthritis with resultant severe central spinal stenosis and right neural foraminal narrowing. There is also narrowing of the inferior recess of the left neural foramen. At L3-4, there is a mild disc bulge. Facet osteoarthritis causing narrowing of the left neural foramen. There is no central spinal or right neural foraminal stenosis. At L4-5, there is uncovering of the intervertebral discs secondary to spondylolisthesis. There is severe facet osteoarthritis. There is resultant mild central spinal stenosis and narrowing of the bilateral neural foramen. At L5-S1, there is a mild disc bulge. There is facet osteoarthritis causing narrowing of the bilateral neural foramen. There is no central spinal stenosis. The conus terminates at the T12-L1 level and demonstrates normal signal intensity. The visualized paraspinal soft tissues are unremarkable. MR/MR lumbar spine wo con Impression: 1. Acute mild compression fracture of L1. 2. Mild levoscoliosis and degenerative disc disease. 3. Severe central spinal stenosis and right neural foraminal narrowing at L2-3 secondary to a disc bulge and facet osteoarthritis. 4. Slight spondylolisthesis of L4 on L5. 5. Multilevel bilateral neural foraminal narrowing as described above. Electronically signed by: Andi Leiva MD 03/24/2025 07:38 AM EST
--- OUTSIDE RECORDS SUMMARY | 2025-03-23 23:19 | XMS_ITS | Patient Health Record ---
Author Organization [facility] Address [address] [place] [address] Care Team Providers Care Regulator Mechanic Name Role Phone David Mccarty Primary Care Provider [phone] Black, Lianna Unavailable [phone] Allergies Allergen (clinical drug ingredient) Drug/Non Drug [...] Duration) Notes Start Date End Date Status Ciclopirox Olamine 0.77 % 1 application Externally Twice a day; Duration: 30 days Active Urea 20 % 1 application to affected area as needed Externally Twice a day; Duration: 30 days 05/24/2013 Not-Taking Night Splint AFO - L1930 1 wear at rest; Duration: 30 days Active Zocor Not-Taking B12 Active Toujeo SoloStar Not- Taking Extra Depth Orthopedic Shoes (1 Pair) with Customized Heat Molded Multidensity Innersoles (3 Pair) Dx: NIDDM/Polyneuropathy (E11.42), Hammertoe Foot Deformity (M20.41,M20.42), Preulcerative Skin Lesion(s) (L85.1); Duration: 365 days 03/20/2025 Active Eliquis Active Atorvastatin Calcium 40 MG Oral; Duration: 90 Days Acti ve Carbidopa-Levodopa N ot-Taking Simvastatin Not-Taki ng Soma Not-Taking Jardiance Not-Taking Not-Taking Ammonium Lactate 12 % 1 application Externally to affected areas of dry skin to feet except for between the toes Twice a day; Duration: 30 days Active Levemir Not-Taking Extra Depth Orthopedic Shoes (1 Pair) with Customized Heat Molded Multidensity Innersoles (3 Pair) as directed Dx: NIDDM/Polyneuropathy (E11.42), Hammertoe Foot Deformity (M20.41,M20.42), Preulcerative Skin Lesion(s) (L85.1 07/18/2024 Active Imitrex Not-Taking Victoza Not-Taking Amlodipine & Diet Manage Prod Not-Taking Estradiol 0.625 MG 1 tablet Orally Reyna y for Three Weeks, 1 Week off; Duration: 30 day(s) Not-Taking Extra Depth Orthopedic Shoes (1 Pair) with Customized Heat Molded Multidensity Innersoles (3 Pair) as directed Dx: NIDDM/Polyneuropathy (E11.42), Hammertoe Foot Deformity (M20.41,M20.42), Preulcerative Skin Lesion(s) (L85.1 06/16/2022 Not-Taking Vitamin D3 Active Fioricet 50-325-40 MG 1 tablet as needed Orally every 4 hrs Not-Taking Levothyroxine Sodium Active Aspirin Not-Taking PARoxetine HCl Activ e Extra-Depth Diabetic Shoes with 3 Pair Custom heat-molded multi-density innersoles . for 1 year . Dx: 250.61,735.4,701; Duration: . Not-Taking Xanax Not-Taking HYDROcodone-Acetaminophen Not-Taking John Contour Next Test Not-Taking Easy Touch Pen [place] Active metFORMIN HCl Not-Ta chanel Metoprolol & Diet Manage Prod Active Vicodin occ Not-Taking ALPRAZolam Active zzzExtra Depth Orthopedic Shoes (1 Pair) with Customized Heat Molded Multidensity Innersoles (3 Pair) . . . Dx: IDDM/Polyneuropathy (E10.42), Hammertoe Foot Deformity (M20.41,M20.42), Preulcerative Skin Lesion(s) (L85.1); Duration: . 08/15/2015 Not-Taking Cyanocobalamin Activ e zzzCompression Stockings 20-30mm Hg . . .; Duration: . Not-Takin g Tresiba 100 UNIT/ML as directed Subcutaneous Active Iron 325 (65 Fe) MG 1 tablet Orally Once a day; Duration: 30 day(s) Active Furosemide Active Meclizine HCl Not-Ta chanel Losartan Potassium A ctive Glimepiride 2 MG 1 tablet with breakf ast or the first main meal of the day Orally Once a day; Duration: 30 day(s) Not-Taking HumaLOG Not-Taking Tresiba FlexTouch No t-Taking Immunizations Vaccine Route Administration Date Status Comme nts Influenza Unknown 06/06/2015 Pending Influenza Unknown 08/15/2015 Refused Influenza Unknown 01/14/2018 Refused Influenza Unknown 02/11/2018 Administered Influenza Unknown 12/13/2018 Administered Influenza Unknown 12/13/2019 Administered Influenza Unknown 12/12/2020 Administered Influenza Unknown 12/22/2022 Administered Influenza Unknown 01/15/2024 Administered Influenza Unknown 01/13/2025 Administered Pneumococcal Unknown 06/06/2015 Pending COVID-19 Robert [...] Problem Acquired hammer toe of right foot (9350812069387975 ) Other hammer toe(s) (acquired), right foot (M20.41) Active confirmed Problem Polyneuropathy due to type 2 diabetes mellitus (668995723) Type 2 diabetes mellitus with diabetic polyneuropathy (E11.42) Active confirmed Problem Acquired hammer toe of left foot (6667442994005988 ) Hammer toe of left foot (M20.42) Active confirmed Problem Ulcer of toe of right foot (disorder) (4869712524540782 1) Skin ulcer of toe of right foot, limited to breakdown of skin (L97.511) Active confirmed Problem Localized, primary osteoarthritis of the ankle and/or foot (046076702) Arthritis of joint of lesser toe, right (M19.071) Active confirmed Vital Signs Blood pressure diastolic 65 mm Hg 03/20/2025 Height 5 ft 2 in in 03/20/2025 Blood pressure systolic 126 mm Hg 03/20/2025 Weight 165 lbs 03/20/2025 BMI 30.18 kg/m2 03/20/2025 Procedures Procedure Date Ordered Date Performed Result Body Sit e 38643-HYGH SKIN LESIONS, OVER 4 04/18/2024 N/A 25538-IAUE NAIL(S) 04/18/2024 N/A 50889-JUIG SKIN LESIONS, OVER 4 07/18/2024 N/A 09882-SAVR NAIL(S) 07/18/2024 N/A 14039-UGYR SKIN LESIONS, OVER 4 11/17/2024 N/A 84991-NWMY NAIL(S) 11/17/2024 N/A 57664-WHEP SKIN LESIONS, OVER 4 03/20/2025 N/A 79847-BWSE NAIL(S) 03/20/2025 N/A Encounters Encounter Location Date Provider Diagnosis [facility] [address] [address] 04/18/2024 Lianna Black Plantar fasciitis of left foot M72.2 ; Type 2 diabetes mellitus with diabetic polyneuropathy E11.42 ; Pain in left foot M79.672 ; Calcaneal spur, left foot M77.32 ; Interstitial myositis of left foot M60.172 ; Bursitis of left foot M77.52 and Xerosis of skin L85.[address] [facility] [address] 07/18/2024 Lianna Black Plantar fasciitis of left foot M72.2 ; Other hammer toe(s) (acquired), right foot M20.41 ; Type 2 diabetes mellitus with diabetic polyneuropathy E11.42 ; Calcaneal spur, left foot M77.32 ; Interstitial myositis of left foot M60.172 ; Bursitis of left foot M77.52 ; Xerosis of skin L85.3 and Other hammer toe(s) (acquired), left foot M20.[address] [address] 11/17/2024 Lianna Jacobo Type 2 diabetes nilo itus with diabetic polyneuropathy E11.[address] [address] 03/20/2025 Lianna Jacobo Type 2 diabetes nilo itus with diabetic polyneuropathy E11.42 ; Pain in right toe(s) M79.674 ; Other hammer toe(s) (acquired), right foot M20.41 ; Arthritis of joint of lesser toe, right M19.071 ; Subluxation of metatarsophalangeal joint of toe, initial encounter S93.149A ; Hammer toe of left foot M20.42 and Skin ulcer of toe of right foot, limited to breakdown of skin L97.[address] [address] 04/15/2024 Liannalópez Jacobo [address] [address] 07/18/2024 Lianna Jacobo Assessments Encounter Date Diagnosis [...] mellitus with diabetic polyneuropathy (ICD-10 - E11.42) 03/20/2025 Pain in right toe(s) (ICD-10 - M79.674) 03/20/2025 Type 2 diabetes mellitus with diabetic polyneuropathy (ICD-10 - E11.42) Patient Educated with: DIABETIC FOOT CARE INSTRUCTIONS. pdf (DIABETIC FOOT CARE INSTRUCTIONS. pdf) 03/20/2025 Other hammer toe(s) (acquired), right foot (ICD-10 - M20.41) 07/18/2024 Type 2 diabetes mellitus with diabetic polyneuropathy (ICD-10 - E11.42) 04/18/2024 Pain in left foot (ICD-10 - M79.672) 04/18/2024 Calcaneal spur, left foot (ICD-10 - M77.32) 07/18/2024 Calcaneal spur, left foot (ICD-10 - M77.32) 03/20/2025 Arthritis of joint o f lesser toe, right (ICD-10 - M19.071) 07/18/2024 Interstitial myositi s of left foot (ICD-10 - M60.172) 03/20/2025 Subluxation of metatarsophalangeal joint of toe, initial encounter (ICD-10 - S93.149A) 04/18/2024 Interstitial myositi s of left foot (ICD-10 - M60.172) 04/18/2024 Bursitis of left nessa t (ICD-10 - M77.52) 07/18/2024 Bursitis of left nessa t (ICD-10 - M77.52) 03/20/2025 Hammer toe of left f oot (ICD-10 - M20.42) 03/20/2025 Skin ulcer of toe of right foot, limited to breakdown of skin (ICD-10 - L97.511) 07/18/2024 Xerosis of skin (ICD -10 - L85.3) 04/18/2024 Xerosis of skin (ICD -10 - L85.3) 07/18/2024 Other hammer toe(s) (acquired), left foot (ICD-10 - M20.42) 11/17/2024 Other Plan Of Treatment Pending Test Test Name Order Date *Uric Acid, Serum 12/22/2023 *CBC With Differential/Platelet 12/22/19 C-Reactive Protein, Quant 12/22/2023 ESR 12/22/2023 X ray : Foot, left 3V 12/22/2023 36350-DZBBNTL NAIL, 6 OR MORE 03/25/2011 66745-IEGKLRI NAIL, 6 OR MORE 06/13/2011 56125-MMGWZMQ NAIL, 6 OR MORE 05/07/2012 85589-JODIKTS NAIL, 6 OR MORE 08/13/2012 93663-WDRJBAO NAIL, 6 OR MORE 11/16/2012 50097-XKUULOW NAIL, 6 OR MORE 02/18/2013 40169-LDOZPEH NAIL, 6 OR MORE 05/24/2013 78217-IUGQENF NAIL, 6 OR MORE 08/30/2013 01995-GHRUNEW NAIL, 6 OR MORE 02/02/2014 16599-ZQUNQKZ NAIL, 6 OR MORE 07/31/2014 30154-YFHOFTA NAIL, 6 OR MORE 12/04/2014 78677-Xlmt Destruction, 1-14 03/25/2011 98949-Svcn Destruction, 1-14 06/13/2011 78613-Dfkjfiks Plate 06/13/2011 10157-Shffnhsh Plate 05/07/2012 56374-Rfpkoxjn Plate 03/25/2011 41175-Xvwqtcgk Plate 12/04/2014 66138-Xjqgqsws Plate 07/31/2014 63872-Bizujbau Plate 02/02/2014 66608-Wkvypwkx Plate 08/30/2013 65551-Xplagqms Plate 05/24/2013 01050-Aivlxkoo Plate 12/11/2016 39146-Vnkdetfd Plate 03/25/2018 72699-Aionavde Plate 11/19/2020 16919-Ivshkhqg Plate 06/10/2021 29297-Iutiogyx Plate Each Additional 40198-Ymhqvczs Plate Each Additional 83753- Debride <25 sq cm 12/04/2014 45713- Debride <25 sq cm 08/05/2018 38065- Debride <25 sq cm 07/31/2014 05751 I&D ABSCESS- SIMPLE,SINGLE 016 15073 I&D ABSCESS- SIMPLE,SINGLE 016 38639- I&D ABSCESS-COMPLICATED,MULTI 07/2015 28947- I&D ABSCESS-COMPLICATED,MULTI , J0702- INJECT TENDON ORIGIN/INSER T 06/06/2015, J0702- INJECT TENDON ORIGIN/INSER T 04/16/2015, J0702- INJECT or DRAIN, JOINT/BUR SA 04/16/2015, J0702- INJECT or DRAIN, JOINT/BUR SA 06/06/2015 42863-GUKS SKIN LESIONS, OVER 4 11/20/19 21 88940-ETRY SKIN LESIONS, OVER 4 07/27/19 21 53119-JOWR SKIN LESIONS, OVER 4 11/21/19 20 46493-SAFF SKIN LESIONS, OVER 4 02/27/20 20 82619-MYKY SKIN LESIONS, OVER 4 12/05/19 15 95015-DWQN SKIN LESIONS, OVER 4 05/24/19 14 88149-PROV SKIN LESIONS, OVER 4 08/31/19 14 05714-QINL SKIN LESIONS, OVER 4 02/03/20 14 69097-YUXN SKIN LESIONS, OVER 4 08/01/19 15 71074-YETU SKIN LESIONS, OVER 4 08/14/19 13 14441-RQES SKIN LESIONS, OVER 4 02/19/20 13 34219-OLQR SKIN LESIONS, OVER 4 11/17/19 13 77580-FLYP SKIN LESIONS, OVER 4 03/25/20 11 01199-WBVU SKIN LESIONS, OVER 4 05/07/19 13 53171-WGFZ SKIN LESIONS, OVER 4 06/13/19 12 68097-YMNS SKIN LESIONS, OVER 4 06/10/19 22 14197-LAQK SKIN LESIONS, OVER 4 12/10/19 22 16247-GWUZ SKIN LESIONS, OVER 4 06/17/19 23 93133-XIAF SKIN LESIONS, OVER 4 04/18/19 25 69522-PCQQ SKIN LESIONS, OVER 4 12/23/19 23 43313-CZHX SKIN LESIONS, OVER 4 06/29/19 24 04891-GUDZ SKIN LESIONS, OVER 4 07/19/19 25 91148-OXKE SKIN LESIONS, OVER 4 11/18/19 25 28908-ETBQ SKIN LESIONS, OVER 4 03/20/20 25 99844-HNOI SKIN LESIONS, 2 TO 4 03/25/20 18 47710-JDTW SKIN LESIONS, 2 TO 4 04/16/19 16 05538-JUHF SKIN LESIONS, 2 TO 4 10/19/19 19 78659-BSPB SKIN LESIONS, 2 TO 4 02/01/20 19 02148-HHYN SKIN LESIONS, 2 TO 4 05/09/19 20 19287-ZNMP SKIN LESIONS, 2 TO 4 08/15/19 20 05310-EGWC SKIN LESIONS, 2 TO 4 06/06/19 16 20764-PARQ SKIN LESIONS, 2 TO 4 08/15/19 16 76394-OCJL SKIN LESIONS, 2 TO 4 12/10/19 16 94134-VPEE SKIN LESIONS, 2 TO 4 12/12/19 17 44643-JLNI SKIN LESIONS, 2 TO 4 01/15/20 18 86085-MKFI SKIN LESIONS, 2 TO 4 07/20/19 19 36652-GNXV NAIL(S) 07/19/2018 95731-GUNN NAIL(S) 03/25/2018 55692-WJRP NAIL(S) 01/14/2018 48944-CZAQ NAIL(S) 12/10/2015 28195-WZJL NAIL(S) 12/11/2016 04612-QDXK NAIL(S) 08/15/2019 79431-YVDV NAIL(S) 05/09/2019 82543-SXPC NAIL(S) 01/31/2019 92734-ARPL NAIL(S) 10/18/2018 68714-QUSX NAIL(S) 02/27/2020 81879-NVPF NAIL(S) 07/26/2020 20037-OOLA NAIL(S) 11/19/2020 35525-ECPV NAIL(S) 06/10/2021 39701-YAFW NAIL(S) 06/16/2022 68446-UFDA NAIL(S) 12/09/2021 47377-VGSP NAIL(S) 06/29/2023 39274-YPTV NAIL(S) 12/22/2022 26503-KRDX NAIL(S) 04/18/2024 76802-VQGL NAIL(S) 03/20/2025 91547-IPCY NAIL(S) 11/17/2024 34059-NIWL NAIL(S) 07/18/2024 F5814-ZZYHAZCX DYSTROPHIC NAILS ANY # R8546-LATDBMWD DYSTROPHIC NAILS ANY # F5514-PTIJLGEK DYSTROPHIC NAILS ANY # 67589 - Shave Biopsy of Skin Lesion 11/2018 Next Appt Details Provider Name:Lianna Jacobo , 07/17/2025 01:00:00 PM, [address] [facility], [place], [address], Insurance Providers Payer Name Payer Address Payer Phone Subscriber Number Group Number Insured Name Patient Relationship to Insured Coverage Start Date Coverage End Date Medicare National Govt [employer] [address] [place] [address] [phone] [id number] Gilbert Bianca Self - patient is the insured [employer] [address] [place] [address] [phone] [id number] KavithaJacob azarille Self - patient is the insured Medical [...] removed 2013, 2014 Hospitalization History Reason Date(Month/Year) [facility] [place]- coughing, sick 03/2024 [facility] [place]- Water around heart and lungs [facility] [place]- Abdominal Pain-Infection - antibiot ic 06/06 [facility] [place]- couldnt catch breath 2018 [facility]- Pericarditis/ Pleurral Effusion 05/15 018
== END 2025-03-23 16:17 | disposition home or self-care (01) ==
LOC: HO.MRI 16:16
PROVIDERS: PCP Internal Medicine; Visit Provider Nurse Practitioner Family
DX: M51.16 Intervertebral disc disorders with radiculopathy, lumbar region (principal); M47.817 Spondylosis without myelopathy or radiculopathy, lumbosacral region
CPT/HCPCS: 72148

== ENCOUNTER 2025-03-31 10:15 | Outpatient (AMB) | payer MEDICARE, SELFPAY ==
--- OUTSIDE RECORDS SUMMARY | 2023-12-28 06:15 | XMS_ITS ---
Author Organization [facility] Address [address] [place] [address] Care Team Providers Care Street Cleaner Name Role Phone David Mccarty Primary Care Provider Lianna Jacobo [phone] Encounters Encounter Location Date Provider Diagnosis [address] [address] 12/28/2023 Lianna Jacobo Plan Of Treatment Next Appt Details Provider Name:Lianna Jacobo , 07/17/2025 01:00:00 PM, [address] [place], [address], Progress Notes * Bianca HUTN ADOB:[birth year] (80 yo F)Acc No.[id number]:12/28/2023 Progress Note Patient: Bianca LIM Provider: Steve Jacobo DPM :1945 A ge:78 Y S ex:Female Date:12/28/2023 [facility] [facility] [place] [place] Pcp:David Mccarty Subjective: * Chief Complaints: * * Medical History: Objective: * Vitals: Assessment: Plan: * Treatment: * Images: * The named appointment provid er may or may not be the originator of this progress note, and it is not deemed complete until electronically signed by the appointment provider. Sign off status: Pending * Provider: Steve Jacobo DPM Date: 0 12/28/2023 Generated for Josefina neri/Amanda/Reshma on: 1 06/01/2024 11:37 AM EST
--- OUTSIDE RECORDS SUMMARY | 2024-03-21 09:45 | XMS_ITS ---
Author Organization [facility] Address [address] [place] [address] Care Team Providers Care Audio Technician Name Role Phone David Mccarty Primary Care Provider [phone] Lianna Jacobo [phone] Encounters Encounter Location Date Provider Diagnosis [address] [address] 03/21/2024 Lianna Jacobo Plan Of Treatment Next Appt Details Provider Name:Lianna Jacobo , 07/17/2025 01:00:00 PM, [address] [place], [address], Progress Notes * Bianca HUNT ADOB:[birth year] (80 yo F)Acc No.[id number]:03/21/2024 Progress Note Patient: Bianca LIM Provider: Steve Jacobo DPM :1945 A ge:79 Y S ex:Female Date:03/21/2024 [facility] [facility] [place] [place] Pcp:David Mccarty Subjective: * Chief Complaints: * [...] 05/22/2023 Generated for Josefina neri/Amanda/Reshma on: 1 06/01/2024 11:37 AM EST
--- NOTE | 2025-03-31 10:53 | HO.SPINEOV ---
Vital Signs 03/31/25 10:53 Height 5 ft 2 in Weight 164 lb BMI 30.0 Intake Visit Reasons: low back pain Intake Note: Ms. Hunt is here today c/o low back and upper leg pain. MRI done at [facility]. Lead Retail Sales Associate Required: No Allergies baclofen Adverse Reaction (Unknown, Verified 03/31/25 10:54) CONFUSION, OUT OF IT oxycodone (From Percocet) Adverse Reaction (Unknown, Verified 03/31/25 10:54) NAUSEA Physical Exam Vital Signs: BMI result Body Mass Index 30.0 Assessment & Plan Assessment & Plan (1) Lumbar spinal stenosis: Code(s): M48.061 - Spinal stenosis, lumbar region without neurogenic claudication Category: Medical (2) Compression fracture of L1 vertebra: Code(s): S32.010A - Wedge compression fracture of first lumbar vertebra, initial encounter for closed fracture Category: Medical Plan Dear Shelby, Thank you for referring Mrs Hunt to our office today. She is a very nice 80-year-old female who is a poorly-controlled diabetic, A1c over 9, presents to the office today for evaluation of low back pain and bilateral lower extremity pain when she stands and walks. It can be present at times when she is in his seated position but in general it is claudicating in nature. It will run down her legs all the way to her calves. Generally if she sits down it will go away. She had an MRI done here at [place] [facility] showing moderate to severe stenosis at L2-3 in addition to a L1 compression fracture. She is currently not taking any medication for the pain. She has had no dedicated conservative treatment yet. Because of her A1c she is not being considered for injections at this time. PMH: Diabetic, again her A1c is in the 9 region, she understands that a lot of what is going on is related to some sugary drinks that she is taking in the middle of the night when her blood sugar gets too low and this creates a yellow you affect with her blood sugars. She was diagnosed with Parkinson's disease 2 years ago in his very well managed on Sinemet. She has chronic kidney disease, has had a few admissions to the hospital for CHF. AFib on Eliquis, high cholesterol, right knee arthroscopy, hysterectomy me, bilateral carpal tunnel. She did have an infection in her toe last summer which was treated briefly with antibiotics and she is followed at the wound care center here and that is recovering without any major issues. She denies any history of heart attack or stroke. She does have sleep apnea. History of pulmonary hypertension as well, no history of pulmonary embolus, bleeding disorders blood clots, major abdominal surgery. No history of MRSA. Social hx: She has not smoke, drink use any recreational drugs Medications: Eliquis, Tylenol, alprazolam, atorvastatin, Sinemet, Lasix, levothyroxine, insulin, Tresiba, Ozempic, metoprolol, vitamin D3 Allergies: Please see the [employer] list Physical exam: Awake alert oriented no acute distress, able to stand and walk in the hallways with no discomfort, strength normal, reflexes normal at the patella, absent at the Achilles Imaging review: Lumbar MRI done at [facility] shows a very subtle endplate STIR hyperintensity at L1, could be consistent with compression fracture but it is very mild. There is no significant height loss of the vertebrae. She has moderate to severe lumbar stenosis at L2-3 due to combination of ligamentous hypertrophy and disc bulging. Impression: 80-year-old female, poorly-controlled diabetic presents with claudicating symptoms radiating down her legs in addition to some back pain. I think the stenosis could nicely explain the symptoms down the legs. Right now she is not debilitated by the symptoms and she is still able to walk fairly long distances. At times she will avoid leaving the house if she knows she has to go for really long walks, but it is not at a point where she is not doing most of the things she enjoys. Right now her quality of life is okay, it is uncomfortable to walk far distances but she can accommodate herself. Because of her elevated A1c obviously, we would avoid surgery on her until her symptoms are either significantly worse or if the A1c comes down and she wants to have the symptoms addressed. It is also well known, that if her A1c and sugars improve, sometimes the symptoms in the legs can improve as well. She is going to work on getting her diabetes under better control. With regard to the compression fracture, it is very subtle and there is no significant loss of height, I am not sure if it is even part of what is to explain for her back pain. It will heal on its own, does not need a brace. She needs no further follow up from that standpoint. I would like to see her back in 6 months to see how it is going with the leg pains and the stenosis. Thank you for allowing us to care for your patient. The total time spent with this visit with this patient was 45 minutes reviewing history, physical exam, lumbar imaging review, and implementation of treatment plan or further diagnostic testing Chay Bello MD,PhD [facility] Coding Level of Care Code New Pt Level 4 (28597) Diagnoses Lumbar spinal stenosis M48.061 Compression fracture of L1 vertebra S32.010A
--- OUTSIDE RECORDS SUMMARY | 2025-03-31 11:37 | XMS_ITS | Clinical Summary ---
Author Organization [facility] Address [address] [place] [address] Phone Care Team Providers Care Central Office Mechanic Name Role Phone Reji Molina MD Primary Care Provider [phone] Allergies Active Allergy Reactions Criticality Noted Date [...] Years Used Date Smoking Tobacco: Former Cigarettes 0 Q uit: 07/05/2018 Smokeless Tobacco: Former Tobacco [...] patient's age to complete this topic Insurance [facility] Medicare Medicaid [place] [facility] Medicaid [place] Care Teams Central Office Mechanic Relationship Specialty Start Date End Date Reji Molina MD [address] [place] [address] PCP - General 04/23/20
--- OUTSIDE RECORDS SUMMARY | 2025-03-31 11:38 | XMS_ITS | Patient Health Record ---
Author Organization [facility] Address [address] [place] [address] Care Team Providers Care Associate Drafter Name Role Phone David Mccarty Primary Care Provider Black, Lianna Unavailable [phone] Allergies Allergen (clinical drug ingredient) Drug/Non Drug [...] Contour Next Test Not-Taking Easy Touch Pen [place] Active metFORMIN HCl Not-Ta chanel Metoprolol & [...] Problem Acquired hammer toe of right foot (8177892162634656 ) Other hammer toe(s) (acquired), right foot (M20.41) Active confirmed Problem Polyneuropathy due to type 2 diabetes mellitus (155068844) Type 2 diabetes mellitus with diabetic polyneuropathy (E11.42) Active confirmed Problem Acquired hammer toe of left foot (4527878667431647 ) Hammer toe of left foot (M20.42) Active confirmed Problem Ulcer of toe of right foot (disorder) (1510456817114826 1) Skin ulcer of toe of right foot, limited to breakdown of skin (L97.511) Active confirmed Problem Localized, primary osteoarthritis of the ankle and/or foot (900976527) Arthritis of joint of lesser toe, right (M19.071) Active confirmed Vital Signs Blood pressure diastolic 65 mm Hg 03/20/2025 Height 5 ft 2 in in 03/20/2025 Blood pressure systolic 126 mm Hg 03/20/2025 Weight 165 lbs 03/20/2025 BMI 30.18 kg/m2 03/20/2025 Procedures Procedure Date Ordered Date Performed Result Body Sit e 77599-FIUB SKIN LESIONS, OVER 4 04/18/2024 N/A 00801-GOID NAIL(S) 04/18/2024 N/A 72131-GHKE SKIN LESIONS, OVER 4 07/18/2024 N/A 16279-UVKR NAIL(S) 07/18/2024 N/A 43445-BREN SKIN LESIONS, OVER 4 11/17/2024 N/A 59914-MNTG NAIL(S) 11/17/2024 N/A 33999-YCFL SKIN LESIONS, OVER 4 03/20/2025 N/A 52691-LJAY NAIL(S) 03/20/2025 N/A Encounters Encounter Location Date Provider Diagnosis [facility] [address] [address] 04/18/2024 Lianna Black Plantar fasciitis of left foot M72.2 ; Type 2 diabetes mellitus with diabetic polyneuropathy E11.42 ; Pain in left foot M79.672 ; Calcaneal spur, left foot M77.32 ; Interstitial myositis of left foot M60.172 ; Bursitis of left foot M77.52 and Xerosis of skin L85.[address] [facility] [address] 07/18/2024 Lianna Black Plantar fasciitis of left foot M72.2 ; Other hammer toe(s) (acquired), right foot M20.41 ; Type 2 diabetes mellitus with diabetic polyneuropathy E11.42 ; Calcaneal spur, left foot M77.32 ; Interstitial myositis of left foot M60.172 ; Bursitis of left foot M77.52 ; Xerosis of skin L85.3 and Other hammer toe(s) (acquired), left foot M20.[address] [address] 11/17/2024 Lianna Jacobo Type 2 diabetes nilo itus with diabetic polyneuropathy E11.[address] [address] 03/20/2025 Lianna Jacobo Type 2 diabetes nilo [...] foot, limited to breakdown of skin L97.[address] [address] 04/15/2024 Liannalópez Jacobo [address] [address] 07/18/2024 Lianna Jacobo Assessments Encounter Date Diagnosis [...] X ray : Foot, left 3V 12/22/2023 52287-CENGUEV NAIL, 6 OR MORE 03/25/2011 89608-ACDKMJD NAIL, 6 OR MORE 06/13/2011 10552-HCPWWRU NAIL, 6 OR MORE 05/07/2012 23208-GQJTIAO NAIL, 6 OR MORE 08/13/2012 51212-BNQQIND NAIL, 6 OR MORE 11/16/2012 89261-GNBSWSG NAIL, 6 OR MORE 02/18/2013 70726-GFBWMZH NAIL, 6 OR MORE 05/24/2013 45431-ZBKQVDC NAIL, 6 OR MORE 08/30/2013 69341-KOMPRCF NAIL, 6 OR MORE 02/02/2014 22524-OBZOBIR NAIL, 6 OR MORE 07/31/2014 31281-GAVEETU NAIL, 6 OR MORE 12/04/2014 94307-Tpza Destruction, 1-14 03/25/2011 80901-Njyi Destruction, 1-14 06/13/2011 50914-Sygarjoe Plate 06/13/2011 71350-Odcztfje Plate 05/07/2012 22034-Zdosuklw Plate 03/25/2011 71501-Bjjcojbq Plate 12/04/2014 08810-Ztqkwnis Plate 07/31/2014 74104-Onxtzjyw Plate 02/02/2014 13613-Pblypbrv Plate 08/30/2013 13377-Aqsadsdz Plate 05/24/2013 48640-Pdqkocxk Plate 12/11/2016 78288-Jzuhxrcr Plate 03/25/2018 16072-Bohrlfxo Plate 11/19/2020 41548-Bgfutajq Plate 06/10/2021 86144-Nuqbdbcu Plate Each Additional 88510-Dzymnlmt Plate Each Additional 06030- Debride <25 sq cm 12/04/2014 26183- Debride <25 sq cm 08/05/2018 05401- Debride <25 sq cm 07/31/2014 88470 I&D ABSCESS- SIMPLE,SINGLE 016 94464 I&D ABSCESS- SIMPLE,SINGLE 016 28379- I&D ABSCESS-COMPLICATED,MULTI 07/2015 93763- I&D ABSCESS-COMPLICATED,MULTI , J0702- INJECT TENDON ORIGIN/INSER T 06/06/2015, J0702- INJECT TENDON ORIGIN/INSER T 04/16/2015, J0702- INJECT or DRAIN, JOINT/BUR SA 04/16/2015, J0702- INJECT or DRAIN, JOINT/BUR SA 06/06/2015 57069-NNON SKIN LESIONS, OVER 4 11/20/19 21 14452-YONA SKIN LESIONS, OVER 4 07/27/19 21 62867-VQJF SKIN LESIONS, OVER 4 11/21/19 20 75000-WFDD SKIN LESIONS, OVER 4 02/27/20 20 79185-YCPE SKIN LESIONS, OVER 4 12/05/19 15 97699-SFXV SKIN LESIONS, OVER 4 05/24/19 14 71887-MRUA SKIN LESIONS, OVER 4 08/31/19 14 98649-XTFZ SKIN LESIONS, OVER 4 02/03/20 14 96200-JTTE SKIN LESIONS, OVER 4 08/01/19 15 52710-WDNC SKIN LESIONS, OVER 4 08/14/19 13 75138-YONW SKIN LESIONS, OVER 4 02/19/20 13 00126-SXMA SKIN LESIONS, OVER 4 11/17/19 13 37510-XDHP SKIN LESIONS, OVER 4 03/25/20 11 08797-EADS SKIN LESIONS, OVER 4 05/07/19 13 96502-QIDN SKIN LESIONS, OVER 4 06/13/19 12 79942-TRIF SKIN LESIONS, OVER 4 06/10/19 22 29887-CJLD SKIN LESIONS, OVER 4 12/10/19 22 75961-NMOZ SKIN LESIONS, OVER 4 06/17/19 23 80439-YFRN SKIN LESIONS, OVER 4 04/18/19 25 84787-UMNE SKIN LESIONS, OVER 4 12/23/19 23 26125-FUWO SKIN LESIONS, OVER 4 06/29/19 24 27117-MXYZ SKIN LESIONS, OVER 4 07/19/19 25 38001-CBBR SKIN LESIONS, OVER 4 11/18/19 25 54756-NEON SKIN LESIONS, OVER 4 03/20/20 25 26086-AMAS SKIN LESIONS, 2 TO 4 03/25/20 18 42481-UVYQ SKIN LESIONS, 2 TO 4 04/16/19 16 82329-BJOV SKIN LESIONS, 2 TO 4 10/19/19 19 67258-IUAI SKIN LESIONS, 2 TO 4 02/01/20 19 60281-SHBE SKIN LESIONS, 2 TO 4 05/09/19 20 86586-ZHKS SKIN LESIONS, 2 TO 4 08/15/19 20 25924-EDYJ SKIN LESIONS, 2 TO 4 06/06/19 16 74782-GCOP SKIN LESIONS, 2 TO 4 08/15/19 16 23560-ONBP SKIN LESIONS, 2 TO 4 12/10/19 16 79711-VWWM SKIN LESIONS, 2 TO 4 12/12/19 17 99862-LOEL SKIN LESIONS, 2 TO 4 01/15/20 18 15364-TUEV SKIN LESIONS, 2 TO 4 07/20/19 19 24052-IBEI NAIL(S) 07/19/2018 26975-TSNW NAIL(S) 03/25/2018 45830-URJC NAIL(S) 01/14/2018 41361-FNFQ NAIL(S) 12/10/2015 56356-AVCM NAIL(S) 12/11/2016 26465-MKSS NAIL(S) 08/15/2019 29167-WUJW NAIL(S) 05/09/2019 64094-CNWQ NAIL(S) 01/31/2019 98215-ERPD NAIL(S) 10/18/2018 13099-GMFR NAIL(S) 02/27/2020 63035-ZSAY NAIL(S) 07/26/2020 01787-GOCF NAIL(S) 11/19/2020 10516-NPFR NAIL(S) 06/10/2021 61881-GCGI NAIL(S) 06/16/2022 90670-ZAEH NAIL(S) 12/09/2021 56178-QKGA NAIL(S) 06/29/2023 76514-OMFK NAIL(S) 12/22/2022 80009-DKLE NAIL(S) 04/18/2024 25326-YAOW NAIL(S) 03/20/2025 25618-MULD NAIL(S) 11/17/2024 46588-JTLS NAIL(S) 07/18/2024 U6440-PGUJHVHD DYSTROPHIC NAILS ANY # U3197-ODBTMFJU DYSTROPHIC NAILS ANY # R6951-WUEEHZPC DYSTROPHIC NAILS ANY # 47653 - Shave Biopsy of Skin Lesion 11/2018 Next Appt Details Provider Name:Lianna Jacobo , 07/17/2025 01:00:00 PM, [address] [facility], [place], [address], Insurance Providers Payer Name Payer Address Payer Phone Subscriber Number Group Number Insured Name Patient Relationship to Insured Coverage Start Date Coverage End Date Medicare National Govt [employer] [address] [place] [address] [id number] [place] Bianca Self - patient is the insured [employer] Blue Shield [address] [place] [address] [id number] KavithaJacob azarille Self - patient is the [...] removed 2013, 2014 Hospitalization History Reason Date(Month/Year) [facility], sick 03/2024 [facility] Water around heart and lungs [facility] Abdominal Pain-Infection - antibiot ic 06/06 [facility] could[facility] catch breath 2018 [facility]- Pericarditis/ Pleurral Effusion 05/15 018
== END 2025-03-31 11:45 | disposition home or self-care (01) ==
LOC: HO.HNS 10:16
PROVIDERS: PCP Internal Medicine; Visit Provider Physician Assistant
DX: M48.061 Spinal stenosis, lumbar region without neurogenic claudication (principal); S32.010A Wedge compression fracture of first lumbar vertebra, initial encounter for closed fracture
CPT/HCPCS: 99204

== ENCOUNTER → 2025-03-31 10:15 | Outpatient (BNVA) | payer MEDICARE, SELFPAY | PROVIDERS: PCP Internal Medicine; Visit Provider Physician Assistant | DX: M48.061 Spinal stenosis, lumbar region without neurogenic claudication (principal); S32.010A Wedge compression fracture of first lumbar vertebra, initial encounter for closed fracture; Z79.01 Long term (current) use of anticoagulants; E11.65 Type 2 diabetes mellitus with hyperglycemia; Z79.4 Long term (current) use of insulin; Z79.85 Long-term (current) use of injectable non-insulin antidiabetic drugs | CPT/HCPCS: 99202 ==

== ENCOUNTER 2025-04-04 14:45 | Outpatient (RCR) | payer MEDICARE, SELFPAY | END 2025-04-04 16:13 | disposition home or self-care (01) | LOC: HO.WCC 14:45 | PROVIDERS: PCP Internal Medicine; Visit Provider Surgery Surgical Oncology | DX: E11.621 Type 2 diabetes mellitus with foot ulcer (principal); L97.519 Non-pressure chronic ulcer of other part of right foot with unspecified severity; E11.65 Type 2 diabetes mellitus with hyperglycemia; M20.41 Other hammer toe(s) (acquired), right foot; Z87.891 Personal history of nicotine dependence | CPT/HCPCS: 99204; 99212; 99213; 99214 ==

== ENCOUNTER 2025-04-11 13:38 | Outpatient (REF) | payer MEDICARE, SELFPAY ==
--- OUTSIDE RECORDS SUMMARY | 2023-12-28 06:15 | XMS_ITS ---
Author Organization [facility] Address [address] [place] [address] Care Team Providers Care Client Liaison Name Role Phone David Mccarty Primary Care Provider Lianna Jacobo [phone] Encounters Encounter Location Date Provider Diagnosis [address] [address] 12/28/2023 Lianna Jacobo Plan Of Treatment Next Appt Details Provider Name:Lianna Jacobo , 07/17/2025 01:00:00 PM, [address] [place], [address], Progress Notes * Bianca HUNT ADOB:[birth year] (80 yo F)Acc No.[id number]:12/28/2023 Progress Note Patient: Bianca LIM Provider: Steve Jacobo DPM :1945 A ge:78 Y S ex:Female Date:12/28/2023 [facility] [facility] [place] [place] Pcp:David Mccarty Subjective: * Chief Complaints: * [...] 12/28/2023 Generated for Josefina neri/Amanda/Reshma on: 1 05:31 PM EST
--- OUTSIDE RECORDS SUMMARY | 2024-03-21 09:45 | XMS_ITS ---
Author Organization [facility] Address [address] [place] [address] Care Team Providers Care Soft Iron Inspector Name Role Phone David Mccarty Primary Care Provider Lianna Jacobo [phone] Encounters Encounter Location Date Provider Diagnosis [address] [address] 03/21/2024 Lianna Jacobo Plan Of Treatment Next Appt Details Provider Name:Lianna Jacobo , 07/17/2025 01:00:00 PM, [address] [place], [address], Progress Notes * Bianca HUNT ADOB:[birth year] (80 yo F)Acc No.[id number]:03/21/2024 Progress Note Patient: Bianca LIM Provider: Steve Jacobo DPM :1945 A ge:79 Y S ex:Female Date:03/21/2024 [facility] [facility] [place] Pcp:David Mccarty Subjective: * Chief Complaints: * * Medical History: Objective: * Vitals: Assessment: Plan: * Treatment: * Images: * The named appointment provid er may or may not be the originator of this progress note, and it is not deemed complete until electronically signed by the appointment provider. Sign off status: Pending * Provider: Steve Jacobo DPM Date: 05/22/2023 Generated for Josefina neri/Amanda/Reshma on: 1 05:30 PM EST
[2025-04-11 15:16] LABS: Anion Gap 13 (12-20); Blood Urea Nitrogen 26 mg/dL (9-16); Calcium 10.6 mg/dL (8.4-10.2); Carbon Dioxide 34 mmol/L (22-29); Chloride 100 mmol/L (96-108); Estimated Glomerular Filt Rate 37; Potassium 4.0 mmol/L (3.3-5.1); Sodium 143 mmol/L (135-145)
--- OUTSIDE RECORDS SUMMARY | 2025-04-11 17:31 | XMS_ITS | Patient Health Record ---
Author Organization [facility] Address [address] [place] [address] Care Team Providers Care Veneer Manufacturer Name Role Phone David Mccarty Primary Care Provider [phone] Black, Lianna Unavailable [phone] Allergies Allergen (clinical drug ingredient) Drug/Non Drug [...] Contour Next Test Not-Taking Easy Touch Pen [place] Active metFORMIN HCl Not-Ta chanel Metoprolol & [...] Problem Acquired hammer toe of right foot (8640413916574077 ) Other hammer toe(s) (acquired), right foot (M20.41) Active confirmed Problem Polyneuropathy due to type 2 diabetes mellitus (484817557) Type 2 diabetes mellitus with diabetic polyneuropathy (E11.42) Active confirmed Problem Acquired hammer toe of left foot (1815914525359440 ) Hammer toe of left foot (M20.42) Active confirmed Problem Ulcer of toe of right foot (disorder) (7766526510430502 1) Skin ulcer of toe of right foot, limited to breakdown of skin (L97.511) Active confirmed Problem Localized, primary osteoarthritis of the ankle and/or foot (401911877) Arthritis of joint of lesser toe, right (M19.071) Active confirmed Vital Signs Blood pressure diastolic 65 mm Hg 03/20/2025 Height 5 ft 2 in in 03/20/2025 Blood pressure systolic 126 mm Hg 03/20/2025 Weight 165 lbs 03/20/2025 BMI 30.18 kg/m2 03/20/2025 Procedures Procedure Date Ordered Date Performed Result Body Sit e 10769-UVVX SKIN LESIONS, OVER 4 04/18/2024 N/A 47966-ZZJK NAIL(S) 04/18/2024 N/A 99008-DAAY SKIN LESIONS, OVER 4 07/18/2024 N/A 71523-ANWS NAIL(S) 07/18/2024 N/A 63049-BMUM SKIN LESIONS, OVER 4 11/17/2024 N/A 64182-UOPK NAIL(S) 11/17/2024 N/A 81104-MSEH SKIN LESIONS, OVER 4 03/20/2025 N/A 77549-OMGV NAIL(S) 03/20/2025 N/A Encounters Encounter Location Date Provider Diagnosis [facility] [address] [address] 04/18/2024 Lianna Black Plantar fasciitis of left foot M72.2 ; Type 2 diabetes mellitus with diabetic polyneuropathy E11.42 ; Pain in left foot M79.672 ; Calcaneal spur, left foot M77.32 ; Interstitial myositis of left foot M60.172 ; Bursitis of left foot M77.52 and Xerosis of skin L85.[address] [facility] [address] 07/18/2024 Lianna Black Plantar fasciitis of left foot M72.2 ; Other hammer toe(s) (acquired), right foot M20.41 ; Type 2 diabetes mellitus with diabetic polyneuropathy E11.42 ; Calcaneal spur, left foot M77.32 ; Interstitial myositis of left foot M60.172 ; Bursitis of left foot M77.52 ; Xerosis of skin L85.3 and Other hammer toe(s) (acquired), left foot M20.[address] [address] 11/17/2024 Lianna Jacobo Type 2 diabetes nilo itus with diabetic polyneuropathy E11.[address] [address] 03/20/2025 Lianna Jacobo Type 2 diabetes nilo [...] foot, limited to breakdown of skin L97.[address] [address] 04/15/2024 Liannalópez Jacobo [address] [address] 07/18/2024 Lianna Jacobo Assessments Encounter Date Diagnosis [...] X ray : Foot, left 3V 12/22/2023 24629-DPROGUV NAIL, 6 OR MORE 03/25/2011 36482-TNPFYOT NAIL, 6 OR MORE 06/13/2011 99688-ABLJZMK NAIL, 6 OR MORE 05/07/2012 40965-FZQSEQN NAIL, 6 OR MORE 08/13/2012 05282-EFDWRER NAIL, 6 OR MORE 11/16/2012 28998-XHVNMVJ NAIL, 6 OR MORE 02/18/2013 53168-SGOSABW NAIL, 6 OR MORE 05/24/2013 46026-SBZFQPS NAIL, 6 OR MORE 08/30/2013 75223-TBIKJFU NAIL, 6 OR MORE 02/02/2014 42029-HVINIMY NAIL, 6 OR MORE 07/31/2014 96962-CROOMQA NAIL, 6 OR MORE 12/04/2014 20347-Dyey Destruction, 1-14 03/25/2011 16764-Gywc Destruction, 1-14 06/13/2011 57884-Uexevjjb Plate 06/13/2011 01752-Jfbavmxe Plate 05/07/2012 44738-Fhngprpk Plate 03/25/2011 22646-Btgmsoqz Plate 12/04/2014 18247-Oibxbpib Plate 07/31/2014 03060-Cgnznkvf Plate 02/02/2014 00148-Xlsgsxtx Plate 08/30/2013 09872-Uayaqbnd Plate 05/24/2013 14417-Fzkcrjcc Plate 12/11/2016 06847-Wvfbdjmd Plate 03/25/2018 95435-Nldsdsqc Plate 11/19/2020 17976-Mwqgnwnp Plate 06/10/2021 51011-Dhzjfgvq Plate Each Additional 65589-Qhuqhbdt Plate Each Additional 26861- Debride <25 sq cm 12/04/2014 31593- Debride <25 sq cm 08/05/2018 85149- Debride <25 sq cm 07/31/2014 65985 I&D ABSCESS- SIMPLE,SINGLE 016 93559 I&D ABSCESS- SIMPLE,SINGLE 016 92959- I&D ABSCESS-COMPLICATED,MULTI 07/2015 15319- I&D ABSCESS-COMPLICATED,MULTI , J0702- INJECT TENDON ORIGIN/INSER T 06/06/2015, J0702- INJECT TENDON ORIGIN/INSER T 04/16/2015, J0702- INJECT or DRAIN, JOINT/BUR SA 04/16/2015, J0702- INJECT or DRAIN, JOINT/BUR SA 06/06/2015 20402-ZCAL SKIN LESIONS, OVER 4 11/20/19 21 33604-QTFW SKIN LESIONS, OVER 4 07/27/19 21 19389-KJEG SKIN LESIONS, OVER 4 11/21/19 20 52880-VXVR SKIN LESIONS, OVER 4 02/27/20 20 49177-BGYO SKIN LESIONS, OVER 4 12/05/19 15 51007-DGFS SKIN LESIONS, OVER 4 05/24/19 14 27827-OQUR SKIN LESIONS, OVER 4 08/31/19 14 18645-YYET SKIN LESIONS, OVER 4 02/03/20 14 92336-NRRK SKIN LESIONS, OVER 4 08/01/19 15 47105-QXGH SKIN LESIONS, OVER 4 08/14/19 13 39067-ADEA SKIN LESIONS, OVER 4 02/19/20 13 42650-JUND SKIN LESIONS, OVER 4 11/17/19 13 07797-RRPI SKIN LESIONS, OVER 4 03/25/20 11 10389-JKXM SKIN LESIONS, OVER 4 05/07/19 13 59063-RAJS SKIN LESIONS, OVER 4 06/13/19 12 12672-CHPF SKIN LESIONS, OVER 4 06/10/19 22 46946-AKPD SKIN LESIONS, OVER 4 12/10/19 22 42751-MXXI SKIN LESIONS, OVER 4 06/17/19 23 35867-WPAP SKIN LESIONS, OVER 4 04/18/19 25 11490-AGHM SKIN LESIONS, OVER 4 12/23/19 23 90763-REZW SKIN LESIONS, OVER 4 06/29/19 24 37692-SBFG SKIN LESIONS, OVER 4 07/19/19 25 31784-EVNI SKIN LESIONS, OVER 4 11/18/19 25 62920-ATSZ SKIN LESIONS, OVER 4 03/20/20 25 45990-APSX SKIN LESIONS, 2 TO 4 03/25/20 18 82772-JAQD SKIN LESIONS, 2 TO 4 04/16/19 16 07722-VLBJ SKIN LESIONS, 2 TO 4 10/19/19 19 42408-DDJL SKIN LESIONS, 2 TO 4 02/01/20 19 28054-IOED SKIN LESIONS, 2 TO 4 05/09/19 20 01718-XBCW SKIN LESIONS, 2 TO 4 08/15/19 20 72785-AXOC SKIN LESIONS, 2 TO 4 06/06/19 16 92462-RJVG SKIN LESIONS, 2 TO 4 08/15/19 16 51575-USKP SKIN LESIONS, 2 TO 4 12/10/19 16 54659-VUVS SKIN LESIONS, 2 TO 4 12/12/19 17 68232-VFKA SKIN LESIONS, 2 TO 4 01/15/20 18 87434-BNDR SKIN LESIONS, 2 TO 4 07/20/19 19 31144-VQUS NAIL(S) 07/19/2018 44782-VMJV NAIL(S) 03/25/2018 94628-QIDW NAIL(S) 01/14/2018 70446-UXCS NAIL(S) 12/10/2015 43180-BJNR NAIL(S) 12/11/2016 15390-JGZT NAIL(S) 08/15/2019 18152-NKAO NAIL(S) 05/09/2019 96231-GHPR NAIL(S) 01/31/2019 05746-JDMS NAIL(S) 10/18/2018 89544-ICOK NAIL(S) 02/27/2020 94385-LAMG NAIL(S) 07/26/2020 40626-HQVR NAIL(S) 11/19/2020 09895-PUZR NAIL(S) 06/10/2021 25597-MECR NAIL(S) 06/16/2022 82563-XZJH NAIL(S) 12/09/2021 28346-WWJH NAIL(S) 06/29/2023 24230-LBTT NAIL(S) 12/22/2022 59897-PSPX NAIL(S) 04/18/2024 51010-LVIY NAIL(S) 03/20/2025 47425-AIJW NAIL(S) 11/17/2024 23384-UDHR NAIL(S) 07/18/2024 P8564-SZLTSZXV DYSTROPHIC NAILS ANY # S2965-LOZULKFO DYSTROPHIC NAILS ANY # B2758-DODJMVWR DYSTROPHIC NAILS ANY # 66820 - Shave Biopsy of Skin Lesion 11/2018 Next Appt Details Provider Name:Lianna Jacobo , 07/17/2025 01:00:00 PM, [address] [facility], [place], [address], Insurance Providers Payer Name Payer Address Payer Phone Subscriber Number Group Number Insured Name Patient Relationship to Insured Coverage Start Date Coverage End Date Medicare National Govt [employer] [address] [place] [address] [id number] [place] Bianca Self - patient is the insured [employer] Blue Shield [address] [place] [address] [id number] KavithaJacob azarille Self - patient is the [...] 2013, 2014 Hospitalization History Reason Date(Month/Year) [facility] [place], [place] [facility] [place] [facility] [place]-Infection - antibiot ic 06/06 [facility] [place] 2018 [facility]- Pericarditis/ Pleurral Effusion 05/15 018
--- OUTSIDE RECORDS SUMMARY | 2025-04-11 17:31 | XMS_ITS | Clinical Summary ---
Author Organization [facility] Address [address] [place] [address] Phone Care Team Providers Care Community Director Name Role Phone Reji Moilna MD Primary Care Provider [phone] Allergies Active Allergy Reactions Criticality Noted Date [...] patient's age to complete this topic Insurance [facility] [place] [facility] [place] Care Teams Community Director Relationship Specialty Start Date End Date Reji Molina MD [address] [place] [address] PCP - General 04/23/20
== END 2025-04-11 13:39 | disposition home or self-care (01) ==
LOC: HO.LAB 13:38
PROVIDERS: PCP Physician Assistant Medical; Visit Provider Internal Medicine Hypertension Specialist
DX: I50.30 Unspecified diastolic (congestive) heart failure (principal); N18.9 Chronic kidney disease, unspecified
CPT/HCPCS: 36415; 80048